=== PATIENT | female | born 1975 | race African-American/Black ===

== ENCOUNTER 2020-04-15 12:43 | Emergency (ER) | payer SELFPAY ==
[2020-04-15 12:49] VITALS: BP 165/103; PULSE 86; RESP 16; TEMP 36.1; O2SAT 100
--- NOTE | 2020-04-15 12:50 | W.ED.GENAD ---
Discharge Plan Disposition Patient Disposition: HOME Condition: Stable Discharge Details Clinical Impression: Right wrist sprain ED Provider: Kev Pisano Home Meds and New Rx's Prescriptions: Continued metoprolol succinate 50 mg Tablet Extended Release 24 Hr 50 mg PO DAILY AM RF: 0 spironolactone [Aldactone] 25 mg Tablet 25 mg PO DAILY AM RF: 0 aspirin 81 mg Tablet,Delayed Release (Dr/Ec) 81 mg PO DAILY AM RF: 0 Discharge Instructions Instructions: Wrist Sprain (ED) Additional Instructions: Continue ice 20 minutes at a time to reduce pain and swelling. Elevate above the level of heart to reduce pain and swelling. Tylenol and/or ibuprofen as needed for pain. Wear wrist splint as needed 5 to 7 days time. May remove for bathing and at night. See enclosed work accommodation. Return to the ER for any acute concerns. 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 She was not injured in any other way. She has otherwise been well. Ice placed, patient given acetaminophen and referred for x-ray. No evidence of bony injury. Consistent with right wrist sprain. Will place in a universal wrist splint for 5 to 7 days time, she may have a work modification, and is appropriate for discharge to home. HPI General Mode of arrival: ambulatory. Date/Time Provider Initiated Documentation: 04/15/20 12:43. Limitations to Documentation: no limitations. Information obtained by: patient. History of Present Illness 45 year old F presents to the emergency department with the chief complaint of Right wrist pain, described as moderate, Quality is described as dull and constant, and is localized to the right and upper extremity. Patient reports no radiation. Patient started experiencing this hour(s) and it has been constant. Rest improves symptom(s), Movement worsens symptoms . Patient did receive the following treatments prior to arrival, NSAID and cold therapy Related Data Home Medications Medication Instructions Recorded Confirmed aspirin 81 mg PO DAILY AM 04/15/20 04/15/20 metoprolol succinate 50 mg PO DAILY AM 04/15/20 04/15/20 spironolactone [Aldactone] 25 mg PO DAILY AM 04/15/20 04/15/20 Allergies Allergy/AdvReac Type Severity Reaction Status Date / Time No Known Allergies Allergy Unverified 04/15/20 12:53 Review of Systems Narrative: No other injury. No numbness or tingling. Did not fall or hurt herself. Otherwise well. 4 systems reviewed and negative [facility] Social History Smoking/Tobacco Use Status: Unknown Smoking risk assessment performed?: Yes Alcohol Intake: never Drug use: Never Do you feel safe at home: Yes Do you feel safe in your relationship?: Yes Exam Narrative Exam Narrative: GEN: awake, alert, oriented 3. Pleasant, well groomed, interactive. HEAD: Normocephalic, atraumatic ENT: External ear exam unremarkable EYES: PERRL, EOMI NECK: Full ROM, no MARLIN, no menigismus CHEST/RESP: Nontender EXT: Full ROM, limited somewhat by pain. 2+ radial pulse bilateral upper extremity, sensation intact throughout. Right distal radius is tender and swollen. Neuro: Grossly normal neurologic exam, conversant, interactive. Psych: Speech fluent, thoughts congruent, affect normal
[2020-04-15] MEDS: Acetaminophen 500 MG TAB 1000 MG PO (13:07)
--- NOTE | 2020-04-15 13:10 | DI.RAD_ITS ---
EXAM: XR WRIST RT COMPL NAVICULAR CLINICAL HISTORY: pain, injury. TECHNIQUE: 2D digital imaging was performed. COMPARISON: No exams were available for comparison FINDINGS: BONES: There is a small deformity the posterior aspect of the distal metaphysis of the right radius s een on the lateral view. A nondisplaced fracture cannot be excluded. Please correlate with the janis ent's site of pain. No other findings to suggest an acute fracture or dislocation are present. No b omkar destructive lesion is seen. JOINTS: The carpal bones are normally aligned. SOFT TISSUE: Normal. IMPRESSION: Cortical deformity seen at the posterior aspect of the distal right radius which may represent a nond isplaced fracture. Please correlate with patient's site of pain. DATA REPOSITORY: RADIATION DOSE DELIVERED:
--- NOTE | 2020-04-15 13:25 | DI.VRAD_ITS ---
PROCEDURE INFORMATION: Exam: XR Right Wrist Exam date and time: 04/15/2020 12:45 PM Age: 45 years old Clinical indication: Pain; Wrist; Right TECHNIQUE: Imaging protocol: XR Right wrist. Views: 3 or more views. COMPARISON: No relevant prior studies available. FINDINGS: Bones/joints: No acute fracture or dislocation. No significant joint space narrowing. No marginal erosions or osteophytes. No lytic or blastic osseous lesion. Soft tissues: No soft tissue gas or radiopaque foreign body. IMPRESSION: No acute fracture or dislocation. No evidence of chronic osseous findings. Dictated and Authenticated by: Mackenzie Harkins MD. Ordering:JENNIFER Angulo MD
--- OUTSIDE RECORDS SUMMARY | 2020-04-15 13:26 | XMS_ITS | Encounter Summary ---
:[address] [facility] Address [address] [place] [address] Care Team Providers Name Role Phone Russ Doss MD Primary Care Provider Encounter Details Date Type Department Care Team Description 01/07/2019 Telephone [facility], [facility] MD [address] [facility] [place] [address] [facility] [address] [facility] [address] [place], [place] [phone] [place], [place] [id number] Social History Tobacco Use Types Packs/Day Years Used Date Never Smoker 0 Smokeless Tobacco: Never Used Alcohol Use Drinks/Week oz/Week Comments No Intimate Partner Violence Answer Date Recorded Within the last year, have you been afraid of your partner o r No 11/03/2018 ex-partner? Within the last year, have you been humiliated or emotionall y No 11/03/2018 abused in other ways by your partner or ex-partner? Within the last year, have you been kicked, hit, slapped, or No 11/03/2018 otherwise physically hurt by your partner or ex-partner? Within the last year, have you been raped or forced to have any No 11/03/2018 kind of sexual activity by your partner or ex-partner? Sex Assigned at Date Recorded Not on file documented as of this encounter Plan of Treatment Not on filedocumented as of this encounter Visit Diagnoses Not on filedocumented in this encounter Additional Source Comments [facility] [place] releasing the current information available at the time of this request. [facility]
--- OUTSIDE RECORDS SUMMARY | 2020-04-15 13:26 | XMS_ITS | Encounter Summary ---
:1975 Author Organization [facility] Address [address] [place] [address] Care Team Providers Name Role Phone Russ Doss MD Primary Care Provider Encounter Details Date Type Department Care Team Description 01/11/2019 Telephone [facility], [facility] MD [address] [facility] [place] [address] [facility] [address] [facility] [place] [place], [place] [phone] [place], [place] [id number] Social History Tobacco Use Types Packs/Day Years [...] filedocumented in this encounter Additional Source Comments [facility] is releasing the current information available at the time of this request. [facility]
--- OUTSIDE RECORDS SUMMARY | 2020-04-15 13:26 | XMS_ITS | Encounter Summary ---
:1975 Author Organization [facility] Address [address] [place] [address] Care Team Providers Name Role Phone Russ Doss MD Primary Care Provider Reason for Visit Reason Comments Post-op Follow-up Encounter Details Date Type Department Care Team Description 01/19/2019 Office Visit [place] [facility]; Physicians, IncDarell Stewart II, MD Pelvic abscess in female [address] [facility] [facility] [address] [place] [id number] Social History Tobacco Use Types Packs/Day Years [...] on file documented as of this encounter Last Filed Vital Signs Vital Sign Reading Time Taken Comments Blood Pressure 110/80 01/19/2019 2:52 PM UTILITY LOCATOR Pulse - - Temperature - - Respiratory Rate - - Oxygen Saturation - - Inhaled Oxygen Concentration - - Weight 123.7 kg (272 lb 9.6 oz) 01/19/2019 2:52 PM UTILITY LOCATOR Height 165.1 cm (5' 5) 01/19/2019 2:52 PM UTILITY LOCATOR Body Mass Index 45.36 01/19/2019 2:52 PM UTILITY LOCATOR documented in this encounter Patient Instructions Patient Instructionsvon Juan Moralez II, MD - 01/19/2019 3:30 PM UTILITY LOCATOR Continue antibiotics and pelvic rest ITY LOCATOR documented in this encounter Progress Notes Juan Mead II, MD - 01/19/2019 3:30 PM CST Subjective: Postoperative Follow-up Remedios Schofield is a 43 y.o. who presents to the clinic 4 weeks status post RALTHBS and 2 weeks later presents to ER with pelvic abscess, drain placed and on oral antibiotics for abnormal uterine bleeding and fibroids. Eating a regular diet without difficulty. Bowel movements are normal. Painis controlled with current analgesics. Medications being used: ibuprofen (OTC). Patient's medications, allergies, past medical, surgical, social and family histories were reviewed and updated as appropriate. Review of Systems Pertinent items are noted in HPI. Objective: Blood pressure 110/80, height 5' 5 (1.651 m), weight 272 lb 9.6 oz (123.7 kg). General: alert,appears stated age,cooperative Abdomen: soft,bowel sounds active,non-tender Incision: Cuff is intact, abdominal incisions healing. Cuff is full with fullness above it PATHOLOGY: Assessment: 43 y.o. s/p RALTHBS doing well post-operatively. Operative findings again reviewed. Pathology report discussed. 1. Post-operative state 2. Pelvic abscess in female Plan: 1. Continue any current medications. 2. Wound care discussed. 3. Activity restrictions: pelvic rest 4. Follow up: 4 weeks . 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 [facility]
--- OUTSIDE RECORDS SUMMARY | 2020-04-15 13:26 | XMS_ITS | Encounter Summary ---
:1975 Author Organization [facility] Address [address] [place] [address] Care Team Providers Name Role Phone Russ Doss MD Primary Care Provider Reason for Visit Auth/Cert Status Reason Specialty Diagnoses / Procedures Referred By Sumaya ontact Referred To Contact Surgery Diagnoses Intramural leiomyoma of uterus Menorrhagia with regular cycle Intramural leiomyoma of uterus [D25.1] Menorrhagia with regular cycle [N92.0] [facility] Procedures NC LAPAROSCOPY W TOT HYSTERECT UTERUS 250 GRAM OR LESS HYSTERECTOMY ABDOMINAL ROBOTIC ASSISTED [address] [facility] [place] [address] Phone: Encounter Details Date Type Department Care Team Description 12/31/2018 Anesthesia Event [facility] Taj Sosa ODarell, [address] [place] [address] [place] [address] [facility] [phone] [facility] Anesthesia [phone] [facility] [place] [phone] Anesthesia Record Procedure Summary Procedure Name Responsible Anesthesia Start Anesthesia Stop Time Anesthesiologist Time ROBOTIC ASSISTED Taj Sosa MD 12/31/18 0655 9 0929 HYSTERECTOMY, BS (Bilateral Abdomen) Events Date Time Event Comment 12/31/2018 0636 0655 An Start 0658 An Start Data 0704 Pre Induction Eval The patient w as re-assessed just prior to induction/proced ure start. 0707 An Induction 0709 An Intubation 0719 Anesthesia Ready 0728 an dian now incx 0901 An Emergence 0901 Oral Airway Applied 0910 Extubation Adequate spontan eous ventilation, TOF=4/4 with sustained tetanu s, Patient Suctioned,Extubated with Positive Pr essure, 100% oxygen applied by Face Mask, Posit derik ET CO2. 0917 an stop data 0929 An Stop Name Total midazolam (VERSED) injection 1 mg/mL 2 mg fentaNYL (SUBLIMAZE) injection 200 mcg lidocaine 2% (cardiac) injection 100 mg 100 mg rocuronium (ZEMURON) 10 mg/mL injection 50 mg propofol (DIPRIVAN) injection 10 mg/mL 200 mg succinylcholine (ANECTINE) 20 mg/mL injection 160 mg ondansetron (PF) (ZOFRAN) injection 4 mg dexamethasone (DECADRON) injection 4 mg/mL 12 mg neostigmine (BLOXIVERZ) 1 mg/mL injection 5 mg glycopyrrolate (ROBINUL) injection 0.8 mg phenylephrine (KOBY-SYNEPHRINE) injection 500 mcg acetaminophen (OFIRMEV) 10 MG/ML IVPB 1,000 mg ceFAZolin (ANCEF) 3 g in sodium chloride 0.9% 100 mL I VPB 3 g ketorolac (TORADOL) injection 30 mg 30 mg lactated ringers infusion 1,500 mL Agents Name O2 Sevoflurane (E) N2O (E) Blood No blood administrations on file. Lines, Drains, and Airways Type Details Placement Removal Incision 12/31/18; 09; Abdomen; 12/31/18 09 by steri strips and bandaids Estefani Inman, RN x4 Peripheral IV 12/31/18; 0615; No; Yes; 12/31/18 0615 by Mylene 12/31/18 1330 by 20 G; Left; Antecubital; DIANDRA Davey, DIANDRA Chlorhexidine; (marci dsg, + blood return, site ok, + nv cks); Tolerated well; Yes ETT 12/31/18; 0709; Direct 12/31/18 0709 by 12/31/18 0914 by laryngoscopy, Stylet; MIKAELA Humphrey CRNA Oral Standard; No; 7.5 mm; Cuffed; Auscultation, Capnometry, Symmetrical chest wall movement; Twill tape; Harding; 2; 1; Planned extubation Urethral Catheter 12/31/18; 0718; No; Yes; 12/31/18 0718 by 12/08 07/25 0852 by Latex; 16 Fr.; Per order Estefani Inman, RN Ca dawood Inman RN documented in this encounter Social History Tobacco Use Types Packs/Day Years [...] on file documented as of this encounter OR Notes Anesthesia Postprocedure Evaluation - Taj Sosa MD - 01/05/2019 12:34 PM CDT Anesthesia Post Note Patient: Remedios Schofield Procedures(s) performed: ROBOTIC ASSISTED HYSTERECTOMY, BS Anesthesia type: General Last Vitals: Vitals Value Taken Time BP 132/61 12/31/2018 10:30 AM Temp 36.7 ??C (98 ??F) 12/31/2018 9:21 AM Pulse 77 12/31/2018 10:30 AM Resp 16 12/31/2018 10:30 AM SpO2 95 % 12/31/2018 10:30 AM Post assessment: tolerated well, no immediate complications Post vital signs: post-procedure vital signs reviewed and stable Temp: post-procedure temperature appropriate Post pain: adequate control Post Op Nausea/Vomiting: no PONV Motor Function: gross motor function is at baseline for patient Procedure Information: hypotension not controlled and hypothermia not controlled Complications: no anesthesia complication Postoperative Hydration: acceptable Anesthesia Preprocedure Evaluation - Taj Sosa MD - 12/27/2018 9:57 AM CDT Anesthesia Evaluation Patient identifiers: Name and Patient summary reviewed and Nursing notes reviewed No history of anesthetic complications, no history of difficult intubation, no malignant hyperthermia, no PONV and no motion sickness Airway Mallampati: I TM distance: >3 FB Neck ROM: full Dental (+) poor dentition Comment: Missing Multiple Teeth LOC alert and awake Cardiovascular (+) hypertension ( ) dysrhythmias (atrial fibrillation) (-) 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, 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 Exercise tolerance:>4 METS (denies CP/SOB) Rhythm: regular Rate: normal Pulmonary - negative ROS (-) shortness of breath, recent URI GI/Hepatic - negative ROS (-)motion sickness Neuro/Psych - negative ROS Abdominal (+) obesity Endo/Other (+) diabetes (type 2, well controlled, ) Female (+) Uterine Fibroids Renal - negative renal ROS Neoplastic Disorders - Neoplastic Disorders Neg Sys Review Hematology - negative hematology ROS (-) history of blood transfusion Spine - Spine Disorders Neg Sys Review Joint and Skeletal - Joint/Skeletal Neg Sys Review Skin and Connective Tissue - Skin/Connective Tissue Disorders Neg Sys Review Immune Disorders -Immune Disorders Neg Sys Review Physical ExamAnesthesia Plan ASA Score: 2 Plan: general 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 Induction: intravenous Informed Consent: Discussed with: patient Patient/account development representative educated and consented to anesthesia plan. Questions asked and answered. NPO Status: Confirmed 1.676 m (5' 6) 126.1 kg (278 lb) Body mass index is 44.87 kg/m??. No results found for: WBC, HGB, HEMATOCRIT, PLT Chemistry No results found for: NA, K, CL, CO2, BUN, CREATININE, CREATININE, GLU No results found for: CALCIUM, ALKPHOS, AST, ALT, BILITOT No results found for: PTT No results found for: INR, PROTIME No results found for: PREGTESTUR, PREGSERUM, HCG, HCGQUANT, PREGUR Vitals: 12/27/18 0931 BP: (!) 153/89 Pulse: 77 Resp: 18 SpO2: 100% Social History Socioeconomic History ??? Marital status: Spouse name: Not on file ??? Number of children: Not on file ??? Years of education: Not on file ??? Highest education level: Not on file Occupational History ??? Not on file Social Needs ??? Financial resource strain: Not on file ??? Food insecurity: Worry: Not on file Inability: Not on file ??? Transportation needs: Medical: Not on file Non-medical: Not on file Tobacco Use ??? Smoking status: Never Smoker ??? Smokeless tobacco: Never Used Substance and Sexual Activity ??? Alcohol use: No ??? Drug use: No ??? Sexual activity: Yes Partners: Male control/protection: None Lifestyle ??? Physical activity: Days per week: Not on file Minutes per session: Not on file ??? Stress: Not on file Relationships ??? Social connections: Talks on phone: Not on file Gets together: Not on file Attends faith service: Not on file Active member of club or organization: Not on file Attends meetings of clubs or organizations: Not on file Relationship status: Not on file ??? Intimate partner violence: Fear of current or ex partner: No Emotionally abused: No Physically abused: No Forced sexual activity: No Other Topics Concern ??? Not on file Social History Narrative ??? Not on file documented in this encounter Miscellaneous Notes Anesthesia Transfer of Care Note - Sheron Estrada CRNA - 12/31/2018 9:28 AM CDT Anesthesia Transfer of Care Note Patient: Remedios Schofield Procedure(s) performed: ROBOTIC ASSISTED HYSTERECTOMY, BS Last Vitals: Vitals: 12/31/18 0542 BP: (!) 177/89 Pulse: 93 Resp: 20 Temp: 36.4 ??C (97.6 ??F) SpO2: 99% Patient Location: PACU Post pain: adequate Post assessment: tolerated well, no immediate complications and no recall Post vital signs: post-procedure vital signs reviewed and stable Airway: mask Level of Consciousness: awake and responds to stimuli Complications: no anesthesia complication Transported: On O2 Continuous monitoring: BP, EKG, SpO2 and Oxygen Upon Arrival: Attached to O2 and Adequate spontaneous ventilation Handoff report complete. Handoff report given to: naty Handoff provided opportunity for questions to be asked and answered. documented in this encounter Plan of Treatment Not on filedocumented as of this encounter Visit Diagnoses Not on filedocumented in this encounter Administered Medications Inactive Administered Medications - up to 3 most recent administrations Medication Order MAR Action Action Date Dose Rate Site acetaminophen (OFIRMEV) 1,000 Given 12/31/2018 7:45 AM CDT 1,00 0 mg mg/100 mL (10 mg/mL) IVPB Administer over 15 Minutes, PRN, Starting Thu12/31/18 at 0745, Anesthesia Intra-op ceFAZolin (ANCEF) 3 g in sodium chloride 0.9% New Bag 7:20 AM CDT 3 g 100 mL IVPB 3 g, Intravenous, Administer over 30 Minutes, 60 Min Pre-Op, Starting Thu12/31/18 at 0700, For 1 dose, Infuse within 1 hour before incision Dose adjusted per policy 122, Pre-op, Indications: gynecological surgery dexamethasone (DECADRON) injection Given 12/31/2018 9:20 AM CDT 8 mg Intravenous, PRN, Starting Thu12/31/18 at 0720, Anesthesia Intra-op Given 12/31/2018 7:20 AM CDT 4 mg fentaNYL (SUBLIMAZE) injection Given 12/31/2018 7:54 AM CDT 50 mcg Intravenous, PRN, Starting Thu12/31/18 at 0705, Anesthesia Intra-op Given 12/31/2018 7:30 AM CDT 50 mcg Given 12/31/2018 7:05 AM CDT 50 mcg glycopyrrolate (ROBINUL) injection Given 12/31/2018 9:00 AM CDT 0.6 mg Intravenous, PRN, Starting Thu12/31/18 at 0655, Anesthesia Intra-op Given 12/31/2018 6:55 AM CDT 0.2 mg ketorolac (TORADOL) injection Given 12/31/2018 8:52 AM CDT 30 mg PRN, Starting Thu12/31/18 at 0852, Anesthesia Intra-op lactated Ringers infusion New Bag 12/31/2018 8:20 AM CDT Intravenous, Continuous PRN, Starting Thu12/31/18 at 0655, Anesthesia Intra-op New Bag 12/31/2018 6:55 AM CDT lidocaine (cardiac) 2 % (XYLOCAINE) Given 12/31/2018 7:07 AM CD T 100 mg injection Intravenous, PRN, Starting Thu12/31/18 at 0707, Anesthesia Intra-op midazolam (VERSED) injection Given 12/31/2018 6:55 AM CDT 2 mg Intravenous, PRN, Starting Thu12/31/18 at 0655, Anesthesia Intra-op neostigmine methylsulfate (BLOXIVERZ) Given 12/31/2018 9:00 AM CDT 5 mg injection Intravenous, PRN, Starting Thu12/31/18 at 0900, Anesthesia Intra-op ondansetron hcl (PF) (ZOFRAN) injection Given 12/31/2018 6:55 AM CDT 4 mg Intravenous, PRN, Starting Thu12/31/18 at 0655, Anesthesia Intra-op phenylephrine (KOBY-SYNEPHRINE) injection Given 12/31/2018 9:08 AM CDT 200 mcg Intravenous, PRN, Starting Thu12/31/18 at 0817, Anesthesia Intra-op Given 12/31/2018 8:38 AM CDT 100 mcg Given 12/31/2018 8:36 AM CDT 100 mcg propofol (DIPRIVAN) 10 mg/mL injection Given 12/31/2018 7:07 AM CDT 200 mg Intravenous, PRN, Starting Thu12/31/18 at 0707, Anesthesia Intra-op rocuronium (ZEMURON) injection Given 12/31/2018 7:23 AM CDT 40 mg PRN, Starting Thu12/31/18 at 0707, Anesthesia Intra-op Given 12/31/2018 7:07 AM CDT 10 mg succinylcholine (ANECTINE) injection Given 12/31/2018 7:08 AM CDT 160 mg Intravenous, PRN, Starting Thu12/31/18 at 0708, Anesthesia Intra-op documented in this encounter Additional Source Comments [facility] is releasing the current information available at the time of this request. [facility]
--- OUTSIDE RECORDS SUMMARY | 2020-04-15 13:26 | XMS_ITS | Encounter Summary ---
:1975 Author Organization [facility] Address [address] [place] [address] Care Team Providers Name Role Phone Russ Doss MD Primary Care Provider Encounter Details Date Type Department Care Team Description 12/03/2018 Telephone [place] [facility], [facility] [facility] [place] [facility] [address] [place], [place] [phone] [place], [place] [phone] Social History Tobacco Use Types Packs/Day Years Used Date Never Smoker Smokeless Tobacco: Never Used Alcohol Use Drinks/Week [...] filedocumented in this encounter Additional Source Comments [facility] is releasing the current information available at the time of this request. [facility]
--- OUTSIDE RECORDS SUMMARY | 2020-04-15 13:26 | XMS_ITS | Encounter Summary ---
:1975 Author Organization [facility] Address [address] [place] [address] Care Team Providers Name Role Phone Russ Doss MD Primary Care Provider Reason for Visit Auth/Cert Status Reason Specialty Diagnoses / Procedures Referred By Sumaya ontact Referred To Contact Surgery Diagnoses Intramural leiomyoma of uterus Menorrhagia with regular cycle Intramural leiomyoma of uterus [D25.1] Menorrhagia with regular cycle [N92.0] [facility] Procedures FL LAPAROSCOPY W TOT HYSTERECT UTERUS 250 GRAM OR LESS HYSTERECTOMY ABDOMINAL ROBOTIC ASSISTED [address] [facility] [id number] Phone: Encounter Details Date Type Department Care Team Description 12/31/2018 Hospital Encounter [facility] gina Harperisabelle, Leiomyoma; [address] [facility] Sonia Stewart II, MD Severe dysmenorrhea [place], [place] [address] [phone] [facility] [phone] [place] [address] Social History Tobacco Use Types Packs/Day Years [...] Sign Reading Time Taken Comments Blood Pressure 136/66 12/31/2018 1:00 PM CDT Pulse 68 12/31/2018 1:00 PM CDT Temperature 37 ??C (98.6 ??F) 12/31/2018 10:42 AM CDT Respiratory Rate 16 12/31/2018 1:00 PM CDT Oxygen Saturation 96% 12/31/2018 1:00 PM CDT Inhaled Oxygen Concentration - - Weight 126.1 kg (278 lb) 12/31/2018 5:36 AM CDT Height 167.6 cm (5' 5.98) 12/31/2018 5:36 AM CDT Body Mass Index 44.89 12/31/2018 5:36 AM CDT documented in this encounter Discharge Instructions Mylene Perez RN - 12/31/2018Follow all of Dr. Gibbs's instructions. Strict pelvic rest. No heavyy lifting. Showers ok after 48 hours. No soaking in a tub. Allow the steri strips to fall off naturally. Call Dr. Gibbs for any questions or concerns. General Anesthesia : It takes up to 24 hours for your body to process anesthesia medications. Do not drink alcoholic beverages, including beer for 24 hours. Alcohol enhances the effects of anesthesia medications. Do not drive a motor vehicle, operate machinery or power tools for 24 hours. Do not sign any legal documents. Do not stay home alone. You may experience lightheadedness, dizziness, and sleepiness following surgery. A responsible adult should be with you for this 24 hour period. Rest at home with moderate activity as tolerated. It may NOT be necessary to go to bed; however, it is important to rest for this 24 hour period. Progress slowly to your regular diet unless your doctor has instructed you otherwise. Be aware that certain anesthesia and pain medications may produce nausea and vomiting in certain individuals. If nausea becomes a problem, call your doctor. You may have a sore throat. You may use ice chips, cold liquids, sore throat sprays or lozenges to relieve discomfort. documented in this encounter Medications at Time of Discharge Medication Sig Dispensed Refills Start Date End Date aspirin (LO-DOSE ASPIRIN) 81 Take 81 mg by 0 MG EC tablet mouth metoprolol (TOPROL-XL) 50 MG Take 50 mg by 0 04/09 24 hr tablet mouth daily hydroCHLOROthiazide Take 12.5 mg by 0 11/04/2018 11/04/2019 (HYDRODIURIL) 12.5 MG tablet mouth daily metFORMIN (GLUCOPHAGE-XR) 500 Take 500 mg by 0 03/28/2019 MG 24 hr tablet mouth daily documented as of this encounter H&P Notes Sonia Gibbs II, MD - 12/31/2018 6:56 AM CDTH&P reviewed. The patient was examined and there are no changes to the H&P. voSonia Sanders II, MD - 12/27/2018 8:02 AM CDT PRE OP H+P 43 y.o. female for annual routine Pap and checkup. No LMP recorded.. She has no unusual complaints.Left pelvic pain. LMP10/04 mammo 03/27 ? Past Medical History: Diagnosis Date ??? A-fib ? Fibrocystic breast ? HTN (hypertension) ? Hypertension ? Uterine benign neoplasm ? leiomyoma ?? Past Surgical History: Procedure Laterality Date ??? MYOMECTOMY ? MYOMECTOMY ? MYOMECTOMY ? Social History ?? Socioeconomic History ??? Marital status: ? Spouse name: Not on file ??? Number of children: Not on file ??? Years of education: Not on file ??? Highest education level: Not on file Occupational History ??? Not on file Social Needs ??? Financial resource strain: Not on file ??? Food insecurity: ? Worry: Not on file ? Inability: Not on file ??? Transportation needs: ? Medical: Not on file ? Non-medical: Not on file Tobacco Use ??? Smoking status: Never Smoker ??? Smokeless tobacco: Never Used Substance and Sexual Activity ??? Alcohol use: No ??? Drug use: No ??? Sexual activity: Yes ? Partners: Male ? control/protection: None Lifestyle ??? Physical activity: ? Days per week: Not on file ? Minutes per session: Not on file ??? Stress: Not on file Relationships ??? Social connections: ? Talks on phone: Not on file ? Gets together: Not on file ? Attends alevism service: Not on file ? Active member of club or organization: Not on file ? Attends meetings of clubs or organizations: Not on file ? Relationship status: Not on file ??? Intimate partner violence: ? Fear of current or ex partner: No ? Emotionally abused: No ? Physically abused: No ? Forced sexual activity: No Other Topics Concern ??? Not on file Social History Narrative ??? Not on file ?? Family History Problem Relation Age of Onset ??? Diabetes Mother ? Hypertension Mother ? Cancer Mother ? Leukemia Mother ? Coronary art dis Mother ? Diabetes Father ? Hypertension Father ? Coronary art dis Father ? Hypertension Sister ? Diabetes Sister ? Cancer Sister ? OB History Para Term AB Living 1 1 1 1 SAB TAB Ectopic Multiple Live Births 1 ?? # Outcome Date GA Lbr Arden/2nd Weight Sex Delivery Anes PTL Lv 1 Term ? Current??Medications Current Outpatient Medications Medication Sig Dispense Refill ??? losartan (COZAAR) 100 MG tablet Take 100 mg by mouth daily ? magnesium oxide (MAG-OX) 400 mg tablet Take 400 mg by mouth daily ? medroxyPROGESTERone (PROVERA) 10 MG tablet Bid 10 tablet 11 ??? potassium chloride (KLOR-CON) 10 MEQ CR tablet Take 10 mEq by mouth daily ? sotalol (BETAPACE) 160 MG tablet Take 160 mg by mouth 2 (two) times daily ? No current facility-administered medications for this visit. ?? Allergies: Patient has no known allergies. ? ROS: Constitutional: no weight loss, weight gain, fever, fatigue Eyes: No vision changes, glasses/contacts ENT/Mouth: No ulcers, sinus problems, ears ringing, headache Cardiovascular: No inability to lie flat, chest pain, exercise intolerance, swelling, heart palpitations Respiratory: No wheezing, coughing blood, shortness of breath, or cough Gastrointestinal: No diarrhea, bloody stool, nausea/vomiting, constipation, gas, hemorrhoids Genitourinary: No blood in urine, painful urination, urgency of urination, frequency of urination, incomplete emptying, incontinence, abnormal bleeding, painful periods, heavy periods, vaginal discharge, vaginal odor, painful intercourse, sexual problems, bleeding after intercourse. Musculoskeletal: No muscle weakness Skin/Breast: No painful breasts, nipple discharge, masses, rash, ulcers Neurological: No passing out, seizures, numbness, headache Endocrine: No diabetes, hypothyroid, hyperthyroid, hot flashes, hair loss, abnormal hair growth, ance Psychiatric: No depression, crying Hematologic: No bruises, bleeding, swollen lymph nodes, anemia. ? OBJECTIVE: The patient appears well, alert, oriented x 3, in no distress. ?? VITALS: No data found. BP: 120/80 There is no height or weight on file to calculate BMI. ? NECK: NECK SUPPLE- NO MASSES PALPATED SKIN: mobility and turgor normal BREAST EXAM: normal appearance, no masses or tenderness ABDOMEN: no hernias, masses, or hepatosplenomegaly GENITALIA: normal external genitalia, no erythema, no discharge URETHRA: normal without discharge or scarring VAGINA: normal vagina CERVIX: normal appearance UTERUS: enlarged, 10 week size weeks size ADNEXA: positive for: tenderness on the left ?? Age appropriate discussion done regarding annual Pap Smear Screening, annual Mammogram, daily vitamin as well as Calcium and Vitamin D supplementation. ?? ASSESSMENT: Active Problem List with Overview Notes ?? Diagnosis Date Noted ??? Diffuse cystic mastopathy of both breasts 11/03/2018 ??? Severe dysmenorrhea 11/03/2018 ??? Left ovarian cyst 11/03/2018 ??? Well woman exam with routine gynecological exam 12/10/2017 ??? Leiomyoma 12/10/2017 ?? PELVIC SONO: PELVIC ULTRASOUND CLINICAL HISTORY: Benign neoplasm of connective and other soft tissue, unspecifiedfibroid; TECHNIQUE: Real-time ultrasound of the pelvis was performed transabdominally and transvaginally. COMPARISON: 04/26/2014 FINDINGS: The uterus measures 10 x 5.2 x 6.2 cm.?The endometrial stripe measures 2.5 mm.?There are no uterine masses.?A right anterior uterine fibroid measures 1.1 x 1.0 x 0.9 cm.?A 2nd left uterine body fibroid measures 1.3 x 1.0 x 1.7 cm.?A 3rd seen at the left uterine body and more cephalad measures 1.7 x 1.3 x 1.6 cm. The right ovary measures 3 x 1.7 x 2.3 cm. Arterial and venous flow is seen.?There is a prominentfollicle measuring 1.5 x 0.9 x 1.4 cm. The left ovary measures 4.7 x 3.9 x 4.0 cm. Arterial and venous flow is seen.?There is a complex area within the left ovary measuring 3 x 3.6 x 3.3 cm with a lattice like pattern.. There is no free fluid in the pelvis. ?? PLAN: Provera 10 bid Pt wants HYST. Will schedule RALTHBS for myoma and heavy menses documented in this encounter Miscellaneous Notes Result QuickNote - Sonia Gibbs II, MD - 12/31/2018 1:54 PM CDT Aware...vA Nursing Note - Mylene Davey RN - 12/31/2018 1:53 PM [id number] discharge instructions provided with voiced understanding. Call md for any questions. Satisfaction expressed with care pau po, voiding freely, pain controlled. Pt states ready to go home.kbh ursing Note - Mylene Davey RN - 12/31/2018 1:37 PM [id number] toradol 30mg IV given as ordered. Dr. Gibbs at bedside. Unable to scan toradol. Vial notscanning correctly. Medication verified with Dr. Gbibs at bedside. Vial: Toradol 3) mg / 1 mlsingle dose vial. Pharmacist called to make aware of problem. kbh rief Op/Discharge Note - Sonia Gibbs II, MD - 12/31/2018 7:28 AM CDT \ROBOTIC ASSISTED HYSTERECTOMY, BS Brief Operative/Discharge Note Destinee Bustamante [id number] 12/31/2018 Pre-op Diagnosis: Intramural leiomyoma of uterus [D25.1] Menorrhagia with regular cycle [N92.0] Post-op Diagnosis: same Procedure(s): ROBOTIC ASSISTED HYSTERECTOMY, BS Anesthesia: General Surgeon(s) and Role: * Sonia Gibbs II, MD - Primary * Zaida Davidson MD - Staff: Performing Staff: Glue Jointer Operator: Estefani Inman RN Relief Glue Jointer Operator: Trey Manuel RN Scrub Person: Stefanie Bullard Video Tech: Video Tech Scrub in Training: Jose G Mills CST Estimated Blood Loss: less than 50 mL Drain: none Total IV Fluids: 1500mL URINE-150cc Specimens: ID Type Source Tests Collected by Time A : Tissue Uterus, Cervix, and Bilateral Fallopian Tubes [facility] Sonia Gibbs II, MD 12/31/2018 0824 Implants: * No implants in log * Complications: none Findings: adhesions, myomas Disposition: awakened from anesthesia, extubated and taken to the recovery room in a stable condition, having suffered no apparent untoward event. Condition: doing well without problems Technique: RALTHBS, lysis adhesions, Surgicel powder at end Patient Instructions: Current Discharge Medication List CONTINUE these medications which have NOT CHANGED Details hydroCHLOROthiazide (HYDRODIURIL) 12.5 MG tablet Take 12.5 mg by mouth daily metFORMIN (GLUCOPHAGE-XR) 500 MG 24 hr tablet Take 500 mg by mouth daily metoprolol (TOPROL-XL) 50 MG 24 hr tablet Take 50 mg by mouth daily aspirin (LO-DOSE ASPIRIN) 81 MG EC tablet Take 81 mg by mouth STOP taking these medications medroxyPROGESTERone (PROVERA) 10 MG tablet Activity: activity as tolerated and pelvic rest Diet: regular diet Follow-up with Dr Gibbs in 4 weeks. Discussed plan with patient and answered questions: Yes Signed: Sonia Gibbs II 12/31/2018 9:09 AM ursing Note - Mylene Davey RN - 12/31/2018 5:53 AM [id number] pt still changing into gown & doing pre surgical wipes kbh p Note - Sonia Gibbs II, MD - 12/31/2018 12:00 AM CDT OPERATIVE REPORT PATIENT: DESTINEE BUSTAMANTE ADMIT DATE: 12/31/2018 CSN: [id number] DISCHARGE DATE: 12/31/2018 : 1975 AGE: 43 Page 3 of 3 DATE OF OPERATION/PROCEDURE: 12/31/2018 SURGEON: SONIA GIBBS II, MD PLUM PACKER: Dr. Zaida Lagunas. PREOPERATIVE DIAGNOSIS: Menorrhagia and uterine myoma. POSTOPERATIVE DIAGNOSIS: Menorrhagia and uterine myoma. INDICATION FOR PROCEDURE: This is a 43-year-old black female with a 10 cm uterus with fibroids, having abnormal uterine bleeding consisting of menorrhagia. Options were discussed with the patient, and she wants a more definitive procedure with a hysterectomy rather than IUD or ablation which had been discussed with the patient also. Need for established physician group fitness assistant department head: 1. This is a patient with an enlarged uterus, abnormally shaped. 2. Residents not available. 3. Established physician aids in resection of tissue, creating pedicles, placing sutures, and retracting organs out of the way. Due to the enlarged and abnormally shaped uterus, this is not a case that could have been handled by a auto brake technician or certified home health aide. PROCEDURE PERFORMED: Robot-assisted total laparoscopic hysterectomy, bilateral salpingectomy. DESCRIPTION OF FINDINGS: ANESTHESIA: General. COMPLICATIONS: ESTIMATED BLOOD LOSS: SPECIMENS REMOVED: DRAINS IMPLANTS: PROCEDURE IN DETAIL: The patient was taken to the operating room, given general anesthetic, sterilely prepped and draped in dorsal lithotomy position. Bladder emptied with a Boggs catheter. Raudel colpotomizer system placedin to manipulate the uterus. A supraumbilical skin incision was made. Veress needle was placed in. Confirmation of placement was made by hanging drop technique. CO2 insufflated, opening pressure of6 mmHg, followed by fast fill to 15 mmHg. Right and left hypogastric ports were placed in. Assistance port placed in the left upper quadrant. Evaluation revealed the patient with previous myomectomy, omental adhesions, and small bowel adhesions to the posterior surface of the uterus into the patient's left adnexal area. These were taken down bluntly and sharply in order to expose the pelvis. On both sides, the ovaries and tubes were densely adherent to one another, probably from previous surgery. Liver edge was smooth. Gallbladder seen. Appendix seen. Hysterectomy performed in the following fashion after adhesiolysis was performed. Ureters were seen peristalsing bilaterally. Left fallopian tube was elevated out of its fossa. The mesosalpinx and mesovarium were triply burned and cut tothe cornua of the uterus. Similar dissection took place on the patient's right side. Round ligament now triply burned and cut. Uteroovarian ligament triply burned and cut. Bladder flap created bluntly and sharply. It was was pushed over the Raudel ring. The broad ligament was skeletonized to the uterine vessels. Uterine vessels were triply burned and cut. Cardinal ligament was triply burned and c ut. This blanches the uterus. The vagina was now entered sharply over the Raudel ring. Incision carried right and left laterally and then the uterus was anteverted and we came across the cul-de-sac. The uterus was pulled through the vagina. The V-Loc suture was placed in through the vagina and the vagina was then sutured in the following fashion. Modified Matteo stitch was placed in the right cuff angle. The suture was run across the vagina to the left cuff angle where a modified Matteo stitch was placed in, then the V-Loc suture was run back across itself for hemostasis and security. Vigorous irrigation revealed a blood loss of approximately 50 cc and then following evaluation of all pedicles and the ureter and suctioning of all fluids, the procedure was terminated. Surgicel powder wasplaced onto the pelvic floor for hemostasis and for adhesion barrier, and the procedure was terminated at this time. Excessive gas allowed to issue through the ports and then they were closed with 3-0Vicryl in a subcuticular fashion. Vaginal instruments were removed. No excessive bleeding noted. Boggs catheter was removed. The patient was awakened, sent to the recovery room in stable condition. She will be discharged to same-day surgery unit. Prescription for Vicodin given. Follow up in the office in 3 to 4 weeks. IV fluids during the case 1500 cc. Urine 150 cc.Blood loss 50 cc. Dictated By: SONIA GIBBS II, MD WFV/MODL /[id number] documented in this encounter Plan of Treatment Not on filedocumented as of this encounter Procedures Procedure Name Priority Date/Time Associated Comments Diagnosis [facility] GLUCOSE Routine 12/31/2018 9:31 Result s for this AM CDT procedure are i n the results section. [facility]GICAL Routine 12/31/2018 8:24 Results fo r this PATHOLOGY AM CDT procedure are i n the results section. HYSTERECTOMY 12/31/2018 6:42 Intramural ABDOMINAL ROBOTIC AM CDT leiomyoma of u terus ASSISTED Menorrhagia with regular cycle [facility]CT GLUCOSE Routine 12/31/2018 6:22 Result s for this AM CDT procedure are i n the results section. documented in this encounter Results POCT Glucose (12/31/2018 9:31 AM CDT) POCT Glucose 147 (H) 78 - 110 [facility] mg/dL [facility] POCT Performed By: SAMANTHA Tinajero [facility] Specimen Blood - Blood (substance) Performing Organization Address City/State/Zipcode Phone Number [facility] [place] [phone] [facility] Surgical Pathology ([place]) (12/31/2018 8:24 AM CDT) Specimen Tissue - Uterus, Cervix, and Bilateral F allopian Tubes Narrative Performed At This result has an attachment that is no t available. Patient - DESTINEE BUSTAMANTE ?- 1975 Sex- F [facility] Med Rec # - [id number] ?Sonia Alaniz M.D. The following is an electronic copy of report # [id number] from: [facility] Isaiah Mcconnell. [address] ? [place] [address] ? DIAGNOSIS: 01/04/2019 EJM:pjl ? UTERUS, HYSTERECTOMY WITH BILATERAL SALPINGECTOMY: UTERINE CERVIX: ??-ENDOCERVICAL POLYP. ??-FOCAL CHRONIC CERVICITIS. ??-NABOTHIAN CYST UTERINE CORPUS: ?-BASAL/INACTIVE ENDOMETRIUM . ?- FOCA L ADENOMYOSIS ??-MULTIPLE LEIOMYOMATA, INCLUDING A SUBMUCOUS LEIOMY SHADY. FALLOPIAN TUBES, BILATERAL: ??-MILD VILLOUS FIBROSIS, MILD HYDROSALPINX. ??-PARATUBAL CYSTS. ? SPECIMEN AND SOURCE: Uterus, cervix, bilateral tubes ? CLINICAL INFORMATION: Myoma menorrhagia ? GROSS EXAMINATION: 01/03/2019 WO/WPL/blg ? Received in formalin, labeled with the patient's name, medical record number, and uterus, cervix, bilateral fallopian tube s, is a 160 gram hysterectomy specimen with attached bilateral fallopi an tubes. ??The uterus measures superior-inferior 9.8 cm, cornu-cornu 6.4 cm, anterior-posterior ??4.6 cm. ?? The cervix measures 3 .6 x 3.2 cm with a slit-like os, 0.4 cm. The left fallopian tube is 4.3 cm in length and 0.3 to 0.9 cm in diameter with a 0.9 x 0.7 cm paratub al cyst at the distal fallopian tube, filled with clear fluid. ??The right fallopian tube measures 5.4 cm in length and 0.7 to 1.6 cm in d iameter. ??Fimbria are not identified on the fallopian tubes. ??The sero sa of the uterus is white-hoover with scattered adherent white-hoover fibrou s strands of tissue, most prominent on the posterior surface. ??A palpable area of nodularity is present on the superior right lateral a spect of the posterior surface. ??The cervix is pink light purple with scattered punctate hemorrhagic foci on the posterior cervix. ?? The serosa of the left fallopian tube is hoover-brown fibrous tissue along the length of the fallopian tube. ??The serosa of the right fallopi an tube is smooth, pink-purple with scattered hemorrhagic foci along the length of the fallopian tube. ??A white-hoover nodule, 0.7 x 0.7 cm, i s present at the distal end of the fallopian tube. ??Bivalved to revea l a 2.4 cm endocervical canal lined by a white-hoover herringbone m ucosa with a possible, 0.4 x 0.3 cm endocervical polyp within th a nterior cervix. The endometrial cavity measures 4.5 x 5.2 cm lined by a white-hoover endometrium, 0.1 cm in thickness. ??A well-delineated , white-hoover submucosal nodule 1.5 x 1.3 cm is present in the ante rior and posterior endometrial cavity. ??Within the superior a spect of the anterior and posterior endometrial cavity are two wel l-delineated, white-hoover nodules, 0.5 cm and 1.2 cm in greatest dime nsion. Additional sectioning reveals three white-hoover intramu ral nodules, 0.6 to 1.2 cm in greatest dimension within the interior a spect of the anterior endometrial cavity. ??The remaining myometri um is homogeneous white-hoover with a maximal thickness of 1.8 cm. ??Cut s urfaces of the intramucosal and intramural nodules demonstrate a who rled white-hoover cut surface. ??No necrosis or hemorrhage is identifie d. ??The left fallopian tube is sectioned to show a 0.4 cm lumen pr oximally and a 0.7 cm lumen distally filled with hoover tissue admixed with blood. ??The right fallopian tube is sectioned to show a 0.5 cm pr oximally filled with brown hoover tissue and a 1.2 cm cystic space dista lly filled with brown hemorrhagic tissue. ??Net Making Supervisor sections s ubmitted as follows: ? 1A - Anterior cervix including possible polyp. 1B - Posterior cervix. 1C - Anterior endomyometrium and intramucosal nodule, full thickness. 1D - Anterior endomyometrium with intramural nodule, f ull thickness. 1E - Anterior endomyometrium with intramural nodule. 1F - Posterior endomyometrium with intramucosal nodule , full thickness. 1G - Intramural nodules, superior endometrial cavity. 1H - Left fallopian tube. 1I - Right fallopian tube. ? MICROSCOPIC DESCRIPTION: Unless gross only is specified, diagnosis for each spe cimen is based on a microscopic examination of senior outside sales representative sections of tissue. ? Pathologist: David Vines III, MD, [place] ([facility]) 01/04/2019 4:24 PM ? [facility], [facility] * [address] [place] [address] ? ?* [place] [address] Technical services performed at: [facility] * [address] * [place] [address] Gross examination performed at: [facility] * [address] * [place] [address] ? End of Report Performing Organization Address [facility] Phone Number [facility] [address] [place] [address] [phone] POCT Glucose (12/31/2018 6:22 AM CDT) [facility] POCT Glucose 127 (H) 78 - 110 mg/dL [facility] POCT Performed By: DIANDRA Chakraborty [facility] Specimen Blood - Blood (substance) Performing Organization Address [facility] Phone Number [facility] AT [address] [place] [address] [facility] documented in this encounter Visit Diagnoses Diagnosis Leiomyoma Other benign neoplasm of connective and other soft tissue of unspecified site Severe dysmenorrhea documented in this encounter Administered Medications Inactive Administered Medications - up to 3 most recent administrations Medication Order MAR Action Action Date Dose Rate Site HYDROmorphone (DILAUDID) Given 12/31/2018 9:50 AM CDT 0.5 mg injection 0.5 mg 0.5 mg, Intravenous, Every 3 Min PRN, PRN Pain, to keep Pain Score 1 - 3, Starting Thu12/31/18 at 0928, For 8 doses, PACU, Up to 4 mg total, Given 12/31/2018 9:42 AM CDT 0.5 mg Given 12/31/2018 9:35 AM CDT 0.5 mg ketorolac (TORADOL) injection 30 mg Given 12/31/2018 1:23 PM CDT 30 mg 30 mg, Intravenous, Once PRN, Pain Score 1 - 3, give to pt on discharge home, Starting Thu12/31/18 at 0908, For 1 dose, Post-op sodium chloride 0.9% infusion 1,000 mL 1,000 mL, Intravenous, at 30 mL/hr, Cont inuous, Starting Thu12/31/18 at 0545, For 30 days, Pre-op tamsulosin (FLOMAX) 24 hr capsule 0.4 mg Given 12/31/2018 11:24 AM CDT 0.4 mg 0.4 mg, Oral, Daily, First dose on Thu12/31/18 at 0915, For 1 dose, Post-op, Do NOT Crush, documented in this encounter Additional Source Comments [facility] [place] is releasing the current information available at the time of this request. [facility]
--- OUTSIDE RECORDS SUMMARY | 2020-04-15 13:26 | XMS_ITS | Encounter Summary ---
:1975 Author Organization [facility] Address [address] [place] [address] Care Team Providers Name Role Phone Russ Doss MD Primary Care Provider Encounter Details Date Type Department Care Team Description 01/19/2019 Travel Social History Tobacco Use Types Packs/Day Years [...] filedocumented in this encounter Additional Source Comments [facility] [place] [place] releasing the current information available at the time of this request. [facility]
--- OUTSIDE RECORDS SUMMARY | 2020-04-15 13:26 | XMS_ITS | Encounter Summary ---
:1975 Author Organization [facility] Address [address] [place] [address] Care Team Providers Name Role Phone Russ Doss MD Primary Care Provider Encounter Details Date Type Department Care Team Description 12/27/2018 Surgical Consult Wirt gina Moralez, Leiomyoma; [employer] Juan Stewart II, MD Severe dysmenorrhea; [address] [facility] [address] [facility] Left ovarian cyst [address] [place] [address] [phone] Social History Tobacco Use Types Packs/Day Years [...] Sign Reading Time Taken Comments Blood Pressure 120/80 12/28/2018 7:58 AM CDT Pulse - - Temperature - - Respiratory Rate - - Oxygen Saturation - - Inhaled Oxygen Concentration - - Weight - - Height - - Body Mass Index - - documented in this encounter Patient Instructions Patient InstructionsJuan Mead II, MD - 12/27/2018 8:30 AM CDT Hospital pre op documented in this encounter Progress Notes Juan Mead II, MD - 12/27/2018 8:30 AM CDT Preoperative Visit Patient is a 43 y.o. with Myoma and dysmenorrhea scheduled for RALTHBS. HPI: 43 y.o. with a history of uterine fibroids and dysmenorrhea OB History Para Term AB Living 1 1 1 1 SAB TAB Ectopic Multiple Live Births 1 # Outcome Date GA Lbr Arden/2nd Weight Sex Delivery Anes PTL Lv 1 Term leiomyoma Past Medical History: Diagnosis Date ??? A-fib ??? Diabetes mellitus ??? Fibrocystic breast ??? HTN (hypertension) ??? Hypertension ??? Uterine benign neoplasm leiomyoma Past Surgical History: Procedure Laterality Date ??? MYOMECTOMY ??? MYOMECTOMY ??? MYOMECTOMY Prior to Admission medications Medication Sig Start Date End Date Taking? Authorizing Provider aspirin (LO-DOSE ASPIRIN) 81 MG EC tablet Take 81 mg by mouth Historical Provider, hydroCHLOROthiazide (HYDRODIURIL) 12.5 MG tablet Take 12.5 mg by mouth daily 11/04/18 11/04/19 Historical Provider, medroxyPROGESTERone (PROVERA) 10 MG tablet Bid 11/03/18 Juan Mead II, MD metFORMIN (GLUCOPHAGE-XR) 500 MG 24 hr tablet Take 500 mg by mouth daily 03/28/18 03/28/19 HistoricalProviMD keyur metoprolol (TOPROL-XL) 50 MG 24 hr tablet Take 50 mg by mouth daily 04/19/18 Historical Provider, No Known Allergies Social History Socioeconomic History ??? Marital status: [...] file Gets together: Not on file Attends anabaptism service: Not on file Active member of club or organization: Not on file Attends meetings of clubs or organizations: Not on file Relationship status: Not on file ??? Intimate partner violence: Fear of current or ex partner: No Emotionally abused: No Physically abused: No Forced sexual activity: No Other Topics Concern ??? Not on file Social History Narrative ??? Not on file Family History Problem Relation Age of Onset ??? Diabetes Mother ??? Hypertension Mother ??? Cancer Mother ??? Leukemia Mother ??? Coronary art dis Mother ??? Diabetes Father ??? Hypertension Father ??? Coronary art dis Father ??? Hypertension Sister ??? Diabetes Sister ??? Cancer Sister Review of Systems: As stated in HPI. Objective: Vitals: 12/28/18 0758 BP: 120/80 There is no height or weight on file to calculate BMI. PHYSICAL EXAM General: NAD, A/Ox3 Neck: supple Respiratory: CTAB, no w/r/r Cardiovascular: RRR no m/r/g Abdomen: NTTP, no masses, ND Extremities: no edema External genitalia: Normal female anatomy, no masses/lesions. Uterus : no masses. No adnexal fullness/tenderness. IMAGING: TVUS: Assessment: RALTHBS for definitive surgical management. Plan: 1. Counseling: Alternatives to this planned procedure were explained to the patient including expectant, medical and other types of surgical management. This procedure and its risks, reasons, benefits and complications (including injury to bowel, bladder, major blood vessel, ureter, bleeding, possibility of transfusion, infection, scarring, dyspareunia, erosion, further surgery, worsening incontinence, failure of the procedure or fistula formation) were reviewed in detail. 2. Surgical consents signed. 3. Transfusion of blood and blood products discussed. 4. Preop testing ordered. Surgery case requested. 5. Instructions reviewed, including NPO after midnight. Patient sent for pre op appointment prior to leaving appointment today documented in this encounter Plan of Treatment Not on filedocumented as of this encounter Visit Diagnoses Diagnosis Leiomyoma Other benign neoplasm of connective and other soft tissue of unspecified site Severe dysmenorrhea Left ovarian cyst Other and unspecified ovarian cyst documented in this encounter Additional Source Comments [facility] [place] releasing the current information available at the time of this request. [facility] [employer]
--- OUTSIDE RECORDS SUMMARY | 2020-04-15 13:26 | XMS_ITS | Encounter Summary ---
:1975 Author Organization [facility] [place] [address] [place] [address] Care Team Providers Name Role Phone Russ Doss MD Primary Care Provider Reason for Referral Cardiac Testing (Routine) Status Reason Specialty Diagnoses / Referred By Referred To Procedures Contact Contact Closed Specialty Cardiology Diagnoses Preop testing Terry Pre Admit Services Required Procedures EKG 12 lead [address] [place] [address] Reason for Visit Cardiac Testing (Routine) Status Reason Specialty Diagnoses / Referred By Referred To Procedures Contact Contact Closed Specialty Cardiology Diagnoses Preop testing Terry Pre Admit Services Required Procedures EKG 12 lead [address] [place] [address] Encounter Details Date Type Department Care Team Description 12/27/2018 PAT Visit [facility] Juan Mead II, MD [address] [address] Preop examination (Primary Dx); [facility] [place] [address] Anesthesia Record Procedure Summary Procedure Name Responsible Anesthesia Start Anesthesia Stop Time Anesthesiologist Time ROBOTIC ASSISTED Will Rashaad Sosa MD 12/31/18 0655 9 0929 HYSTERECTOMY, [...] by Face Mask, Posit derik ET CO2. 09 an stop data 09 An Stop No medications on file. Agents No agents on file. Blood No blood administrations on file. Lines, Drains, and Airways Type Details Placement Removal Incision 12/31/18; 09; Abdomen; 12/31/18 09 by steri strips and bandaids Estefani Inman RN x4 Peripheral IV 12/31/18; 0615; No; Yes; 12/31/18 0615 by Mylene 12/31/18 1330 by 20 G; Left; Antecubital; DIANDRA Davey RN Chlorhexidine; (marci dsg, + blood return, site [...] by Latex; 16 Fr.; Per order Estefani Imnan RN Ca dawood Inman RN documented in [...] Sign Reading Time Taken Comments Blood Pressure 153/89 12/27/2018 9:31 AM CDT Pulse 77 12/27/2018 9:31 AM CDT Temperature - - Respiratory Rate 18 12/27/2018 9:31 AM CDT Oxygen Saturation 100% 12/27/2018 9:31 AM CDT Inhaled Oxygen Concentration - - Weight 126.1 kg (278 lb) 12/27/2018 9:31 AM CDT Height 167.6 cm (5' 6) 12/27/2018 9:31 AM CDT Body Mass Index 44.87 12/27/2018 9:31 AM CDT documented in this encounter Miscellaneous Notes Nursing Note - Gianna Finch RN - 12/27/2018 9:00 AM CDTSpoke with patient , advised her to stop asa now. She verbalized understanding ursing Note - Gianna Finch RN - 12/27/2018 9:00 AM CDTSpoke with Pamela at Dr Mead office. Pateint needs to stop asa now. Phoned patient and left message on voice mail AT Nursing Note - Gianna Finch RN - 12/27/2018 9:00 AM CDT [facility] Pre-Operative Home Care Instructions The Night Before Surgery 1. Take a complete bath (shower or tub) and shampoo your hair. Use Hibiclens as instructed. 2. Do not drink any alcoholic beverages for 24 hours before or after your operation. Alcohol may increase the depth of your anesthesia or the effect of the medications which you are given. 3. Do not eat or drink anything after midnight. Nothing in the morning - no water, no coffee, juice or liquid in your stomach. Do not chew gum, suck on mints or chew tobacco. 4. If having orthopedic/vascular/neurologicaal surgery, remove nail dutch from fingernails and toenails. 5. Other: The Day of Your Surgery A responsible adult must be available to drive you home. The drugs and/or anesthesia which you receive will make it unsafe for you to drive a car, walk back to your home or go home alone by public transportation for at least 24 hours. A parent or legal guardian must accompany a minor. 1. If having facial surgery or sinus surgery, do not apply any make-up: no eye make-up, face make-up or lipstick. 2. Contact lenses, dentures and hearing aids must be removed before you go into the operating room. Bring your contact lens case to keep your lenses protected while you are in surgery. A denture cup will be provided. 3. All hairpins, hair clasps or ramirez must be removed. 4. Please do not wear any jewelry including earrings, rings, watches, medals, etc. 5. Wear comfortable, loose fitting clothes. If your surgery involves your legs, wear shorts or loosely fitted pants. If your surgery involves your face or chest, wear a shirt that buttons up the front. 6. Leave all valuables at home. 7. Report toRegistration on the 3rd Floor [facility] by __0515 8. If registered over the phone, stop at the Admit Department, 3rd floor of the [facility] [address]. 9. Please do not bring children under 12 with you as there will be no one available to supervise them. 10. If you are , or could be , tell your physician immediately for your safety and the safety of your baby. In the event that your physical condition changes (for example, if you develop a cold, persistent cough, fever, flu or an important change in the condition for which you are having the operation) please notify the [facility] personnel at [phone]. Our hours are 5:30 a.m. - 5:30 p.m., Thursday through Thursday. Instructions Given By: ___Gianna Finch RN____Date: esult Adam - Juan Mead II, MD - 12/27/2018 9:00 AM CDTAware...vA documented in this encounter Plan of Treatment Scheduled Orders Name Type Priority Associated Diagnoses Order S chedule POCT urine Point of Care Routine Once for 1 Testing Occurrences sta rting 12/27/2018 unti l 12/27/2018 documented as of this encounter Procedures Procedure Name Priority Date/Time Associated Comments Diagnosis EKG 12 LEAD Routine 12/27/2018 9:45 Preop testing Results fo r this AM CDT procedure are i n the results section. [facility] [place] WITH Routine 12/27/2018 9:21 Results fo r this DIFFERENTIAL AM CDT procedure are i n the results section. [facility] , URINE STAT 12/27/2018 9:21 Re sults for this AM CDT procedure are i n the results section. [facility] URINALYSIS Routine 12/27/2018 9:21 Preop examination Res ults for this AM CDT procedure are i n the results section. [facility] CBC WITH Routine 12/27/2018 9:21 Results fo r this DIFFERENTIAL AM CDT procedure are i n the results section. [facility] COMPREHENSIVE Routine 12/27/2018 9:21 Resul ts for this METABOLIC PANEL AM CDT procedure ar e in the results section. documented in this encounter Results EKG 12 lead (12/27/2018 9:45 AM CDT) VENTRICULAR RATE 72 BPM [facility] OTHER RESULTS ATRIAL RATE 72 BPM [facility] OTHER RESULTS P-R INTERVAL 154 ms [facility] OTHER RESULTS QRS DURATION 78 ms [facility] OTHER RESULTS Q-T INTERVAL 406 ms [facility] OTHER RESULTS QTC CALCULATION(BEZET) 444 ms [facility] OTHER RESULTS P AXIS 44 degrees [facility] OTHER RESULTS R AXIS -4 degrees [facility] OTHER RESULTS T AXIS 35 degrees [facility] OTHER RESULTS INTERPRETATION (MUSE) Normal sinus [facility] OTHER RESULTS rhythm Specimen Performing Organization Address City/[facility]/Zipcode Phone Number [facility] OTHER RESULTS , Urine (12/27/2018 9:21 AM CDT) Pathologist Sig nature Urine Test Negative Negative [facility] Urine 1.015 [facility] Specific [place] [facility] Specimen Urine - Urine (substance) Performing Organization Address City/[facility]/Zipcode Phone Number [facility] [place] [phone] [facility] CBC with Differential (12/27/2018 9:21 AM CDT) WBC 8.1 4.0 - 10.0 10? 3 [facility] /uL [facility] RBC 4.62 3.80 - 5.10 10? 6 [facility] /uL [facility] Hemoglobin 12.4 11.5 - 15.0 [facility] gm/dL [facility] Hematocrit 38.1 35.0 - 46.0 % [facility] MCV 82.6 81.0 - 99.0 fL [facility] MCH 26.9 26.0 - 33.0 pg [facility] MCHC 32.6 31.0 - 35.0 [facility] g/dL [facility] RDW 14.6 11.5 - 15.0 % [facility] Platelet Count 258 140 - 410 10? 3 [facility] /uL [facility] MPV 8.8 7.2 - 10.4 fL [facility] Neutrophils Absolute 4.67 1.50 - 6.30 10? 3 [facility] - Instrument /uL [facility] Lymphocytes Absolute 2.39 1.00 - 3.00 10? 3 [facility] - Instrument /uL [facility] Monocytes Absolute - 0.78 0.20 - 0.80 10? 3 [facility] Instrument /uL [facility] Eosinophils Absolute 0.25 0.00 - 0.40 10? 3 [facility] - Instrument /uL [facility] Basophils Absolute - 0.04 0.00 - 0.10 10? 3 [facility] Instrument /uL [facility] Neutrophils Percent - 57.5 32 - 64 % [facility] T Instrument [facility] Lymphocytes Percent - 29.4 25 - 48 % [facility] T Instrument [facility] Monocytes Percent - 9.6 (H) 4 - 6 % [facility] Instrument [facility] Eosinophils Percent - 3.1 (H) 2 - 3 % [facility] T Instrument [facility] Basophils Percent - 0.5 0 - 1 % [facility] Instrument [facility] Specimen Blood - Blood (substance) Performing Organization Address City/State/Zipcode Phone Number [facility] [address] [phone] [facility] Urinalysis (12/27/2018 9:21 AM CDT) Color Yellow Light Yellow, [facility] Colorless, AT [facility] Straw, Yellow, Dark Yellow Clarity/Appearanc Clear Clear [facility] AT [facility] Specific [place] 1.015 1.005 - 1.035 [facility] pH 6.5 5.0 - 8.0 [facility] Glucose, UA Normal Normal [facility] Protein Negative Negative [facility] Ketones Negative Negative [facility] Bilirubin, Urine Negative Negative [facility] Nitrites Negative Negative [facility] Blood 0.03 mg/dL (A) Negative [facility] Leukocyte Negative Negative [facility] Esterase, UA AT [facility] Urobilinogen, UA Normal Normal, 2.0 [facility] EU/dL AT [facility] Specimen Urine - Voided urine specimen (specimen) Performing Organization Address City/State/Zipcode Phone Number [facility] [address] [phone] [facility] Comprehensive Metabolic Panel (12/27/2018 9:21 AM CDT) Sodium 141 136 - 145 [facility] mmol/L [facility] Potassium 4.0 3.5 - 5.1 [facility] mmol/L [facility] Chloride 104 98 - 107 mmol/L [facility] Carbon Dioxide 29 20 - 31 mmol/L [facility] Glucose 122 (H) 74 - 106 mg/dL [facility] BUN 7.0 (L) 9.0 - 23.0 [facility] mg/dL [facility] Creatinine 0.85 0.55 - 1.02 [facility] mg/dL [facility] BUN/Creatinine Ratio 8 (L) 12 - 20 [facility] Calcium 8.7 8.3 - 10.6 [facility] mg/dL [facility] Total Protein 7.3 5.7 - 8.2 g/dL [facility] Albumin 4.5 3.2 - 4.8 g/dL [facility] Albumin/Globulin 1.6 0.8 - 1.7 [facility] AST 16 <34 U/L [facility] ALT 15 10 - 49 U/L [facility] Alkaline Phosphatase 66 46 - 116 U/L [facility] Bilirubin, Total 0.3 0.2 - 1.0 mg/dL [facility] EGFR, 96 >89 mL/min [facility] EGFR, Non 83 (L) >89 mL/min [facility] Anion Gap 8 8 - 16 [facility] Specimen Blood - Blood (substance) Performing Organization Address City/State/Zipcode Phone Number [facility] [place] [phone] [facility] documented in this encounter Visit Diagnoses Diagnosis Preop examination - Primary Preoperative examination, unspecified Preop testing Preoperative examination, unspecified documented in this encounter Additional Source Comments [facility] [place] the current information available at the time of this request. [facility]
--- OUTSIDE RECORDS SUMMARY | 2020-04-15 13:26 | XMS_ITS | Encounter Summary ---
:1975 Author Organization [facility] Address [address] [place] [address] Care Team Providers Name Role Phone Russ Doss MD Primary Care Provider Reason for Visit Auth/Cert Status Reason Specialty Diagnoses / Procedures Referred By Sumaya ontact Referred To Contact Surgery Diagnoses Intramural leiomyoma of uterus Menorrhagia with regular cycle Intramural leiomyoma of uterus [D25.1] Menorrhagia with regular cycle [N92.0] Terry Operating Room Procedures [place] LAPAROSCOPY W TOT HYSTERECT UTERUS 250 GRAM OR LESS HYSTERECTOMY ABDOMINAL ROBOTIC ASSISTED [address] [facility] [address] Phone: Encounter Details Date Type Department Care Team Description 12/31/2018 Surgery [facility] Sonia Gibbs ROBOTIC ASSISTED [address] [place] [address] Pat SOLIS MD HYSTERECTOMY, [place], [place] [address] [facility] [address] [facility] [phone] [place] [address] Social History Tobacco Use Types [...] Sign Reading Time Taken Comments Blood Pressure 132/61 12/31/2018 10:30 AM CDT Pulse 77 12/31/2018 10:30 AM CDT Temperature 36.7 ??C (98 ??F) 12/31/2018 9:21 AM CDT Respiratory Rate 16 12/31/2018 10:30 AM CDT Oxygen Saturation 95% 12/31/2018 10:30 AM CDT Inhaled Oxygen Concentration - - [...] there are no changes to the H&P. von Sonia Moralez II, MD - 12/27/2018 8:02 AM CDT [...] Gets together: Not on file ? Attends methodist service: Not on file ? Active member [...] Mylene Davey RN - 12/31/2018 1:53 PM [id number] discharge instructions provided with voiced understanding. Call md for any questions. Satisfaction expressed with care pau po, voiding freely, pain controlled. Pt states ready to go home.kbh ursing Note - Mylene Davey RN - 12/31/2018 1:37 PM [id number] toradol 30mg IV given as ordered. Dr. Gibbs at bedside. Unable to scan toradol. Vial notscanning correctly. Medication verified with Dr. Gibbs at bedside. Vial: Toradol 3) mg / 1 mlsingle dose vial. Pharmacist called to make aware of problem. kbh rief Op/Discharge Note - Sonia Gibbs II, MD - 12/31/2018 7:28 AM CDT \ROBOTIC ASSISTED HYSTERECTOMY, BS Brief Operative/Discharge Note Destinee Bustamante [id number] 12/31/2018 Pre-op Diagnosis: Intramural leiomyoma of uterus [D25.1] Menorrhagia with regular cycle [N92.0] Post-op Diagnosis: same Procedure(s): ROBOTIC ASSISTED HYSTERECTOMY, BS Anesthesia: General Surgeon(s) and Role: * Sonia Gibbs II, MD - Primary * Zaida Davidson MD - Staff: Performing Staff: Gauge And Weigh Machine Operator: Estefani Inman RN Relief Gauge And Weigh Machine Operator: Trey Manuel RN Scrub Person: Stefanie Bullard Video Tech: Video Tech Scrub in Training: Jose G Mills CST Estimated Blood Loss: less than 50 mL Drain: none Total IV Fluids: 1500mL URINE-150cc Specimens: ID Type Source Tests Collected by Time A : Tissue Uterus, Cervix, and Bilateral Fallopian Tubes [facility] Sonia Gibbs II, MD 12/31/2018 [...] Mylene Davey RN - 12/31/2018 5:53 AM [id number] pt still changing into gown & doing pre surgical wipes kbh p Note - Sonia Gibbs II, MD - 12/31/2018 12:00 AM CDT OPERATIVE REPORT PATIENT: DESTINEE BUSTAMANTE ADMIT DATE: 12/31/2018 CSN: [id number] DISCHARGE DATE: 12/31/2018 : 1975 AGE: 43 Page 3 of 3 DATE OF OPERATION/PROCEDURE: 12/31/2018 SURGEON: SONIA GIBBS II, MD TANK TENDER: Dr. Zaida Lagunas. PREOPERATIVE DIAGNOSIS: Menorrhagia and [...] the patient also. Need for established physician cardiovascular physician assistant: 1. This is a patient with an enlarged uterus, abnormally shaped. 2. Residents not available. 3. Established physician aids in resection of tissue, creating pedicles, placing sutures, and retracting organs out of the way. Due to the enlarged and abnormally shaped uterus, this is not a case that could have been handled by a sterile processing technician or certified control systems technician. PROCEDURE PERFORMED: Robot-assisted total laparoscopic hysterectomy, bilateral [...] Dictated By: SONIA GIBBS II, MD WFV/MODL /[id number] documented in this encounter Plan of Treatment Not on filedocumented as of this encounter Procedures Procedure Name Priority Date/Time Associated Comments Diagnosis [facility] POCT GLUCOSE Routine 12/31/2018 9:31 Result s for this AM CDT procedure are i n the results section. [facility] SURGICAL Routine 12/31/2018 8:24 Results fo r this PATHOLOGY AM CDT procedure are i n the results section. HYSTERECTOMY 12/31/2018 6:42 Intramural ABDOMINAL ROBOTIC AM CDT leiomyoma of u terus ASSISTED Menorrhagia with regular cycle [facility] POCT GLUCOSE Routine 12/31/2018 6:22 Result s for this AM CDT procedure are i n the results section. documented in this encounter Results POCT Glucose (12/31/2018 9:31 AM CDT) POCT Glucose 147 (H) 78 - 110 [facility] mg/dL AT [facility] POCT Performed By: SAMANTHA Tinajero AT [facility] Specimen Blood - Blood (substance) Performing Organization Address City/State/Zipcode Phone Number [facility] [place] [phone] [facility] Surgical Pathology ([place]) (12/31/2018 8:24 AM CDT) Specimen Tissue - Uterus, Cervix, and Bilateral F allopian Tubes Narrative Performed At This result has an attachment that is no t available. Patient - DESTINEE BUSTAMANTE ?- 1975 Sex- F [facility] Rec # - [id number] ?Sonia Alaniz M.D. The following is an electronic copy of report # [id number] from: [facility] [address] ? [place] [address] ? DIAGNOSIS: 01/04/2019 EJM:pjl ? UTERUS, HYSTERECTOMY [...] dista lly filled with brown hemorrhagic tissue. ??Stator Plate Washer sections s ubmitted as follows: ? 1A [...] is based on a microscopic examination of commissary representative sections of tissue. ? Pathologist: David Vines III, MD, [place] ([facility]) 01/04/2019 4:24 PM ? [facility], [facility] * [address] [facility] ? ?* [place] [address] Technical services performed at: [facility] * [address] ??[facility]. [address] * [place] [address] Gross examination performed at: [facility] * [address] * [place] [address] ? End of Report Performing Organization Address [facility] Phone Number [facility] [address] [place] [address] POCT Glucose (12/31/2018 6:22 AM CDT) [facility] POCT Glucose 127 (H) 78 - 110 mg/dL [facility] POCT Performed By: [facility] Specimen Blood - Blood (substance) Performing Organization Address [facility] Phone Number [facility] [address] [place] [phone] [facility] documented in this encounter Visit Diagnoses Diagnosis Intramural leiomyoma of uterus Menorrhagia with regular cycle Excessive or frequent menstruation documented in this encounter Administered Medications Inactive Administered Medications - up to 3 most recent administrations Medication Order MAR Action Action Date Dose Rate Site bupivacaine (MARCAINE) 0.25 % Given 12/31/2018 6:22 AM CDT 30 m Ls (2.5 mg/mL) injection PRN, Starting Thu12/31/18 at 0622, Intra-op HYDROmorphone (DILAUDID) injection 0.5 m g Given 12/31/2018 9:50 AM CDT 0.5 mg 0.5 mg, Intravenous, Every 3 [...] documented in this encounter Additional Source Comments [facility] is releasing the current information available at the time of this request. [facility]
--- OUTSIDE RECORDS SUMMARY | 2020-04-15 13:26 | XMS_ITS | Encounter Summary ---
:1975 Author Organization [facility] Address [address] [place] [address] Care Team Providers Name Role Phone Russ Doss MD Primary Care Provider Encounter Details Date Type Department Care Team Description 12/27/2018 Travel Social History Tobacco Use Types Packs/Day [...] filedocumented in this encounter Additional Source Comments [facility] is releasing the current information available at the time of this request. [facility]
--- OUTSIDE RECORDS SUMMARY | 2020-04-15 13:26 | XMS_ITS | Clinical Summary ---
:1975 Author Organization [facility] Address [address] [place] [address] Care Team Providers Name Role Phone Russ Doss MD Primary Care Provider Allergies No Known Allergies Medications Medication Sig Dispensed Refills Start Date End Date Status aspirin (LO-DOSE Take 81 mg by 0 Active ASPIRIN) 81 MG EC mouth tablet metoprolol (TOPROL-XL) Take 50 mg by 0 04/19/2018 Active 50 MG 24 hr tablet mouth daily Active Problems Problem Noted Date Post-operative state 01/19/2019 Pelvic abscess in female 01/19/2019 Diffuse cystic mastopathy of both breasts 11/03/2018 Well woman exam with routine gynecological exam 2017 Resolved Problems Problem Noted Date Resolved Date Severe dysmenorrhea 11/03/2018 01/19/2019 Left ovarian cyst 11/03/2018 01/19/2019 Cystic mastopathy, unspecified laterality 12/10/2017 11/03/2018 Leiomyoma 12/10/2017 01/19/2019 Family History Medical History Relation Name Comments Coronary art dis Father Diabetes Father Hypertension Father Cancer Mother Coronary art dis Mother Diabetes Mother Hypertension Mother Leukemia Mother Cancer Sister Diabetes Sister Hypertension Sister Relation Name Status Comments Father (Age 75) Mother (Age 81) throat cancer Sister Social History Tobacco Use Types Packs/Day Years [...] Assigned at Date Recorded Not on file Last Filed Vital Signs Vital Sign Reading Time Taken Comments Blood Pressure 110/80 01/19/2019 2:52 PM PHOTOSTAT OPERATOR Pulse 68 12/31/2018 1:00 PM CDT Temperature 37 ??C (98.6 ??F) 12/31/2018 10:42 AM CDT Respiratory Rate 16 12/31/2018 1:00 PM CDT Oxygen Saturation 96% 12/31/2018 1:00 PM CDT Inhaled Oxygen Concentration - - Weight 123.7 kg (272 lb 9.6 oz) 01/19/2019 2:52 PM PHOTOSTAT OPERATOR Height 165.1 cm (5' 5) 01/19/2019 2:52 PM PHOTOSTAT OPERATOR Body Mass Index 45.36 01/19/2019 2:52 PM PHOTOSTAT OPERATOR Plan of Treatment Health Maintenance Due Date Last Done Comments Kdcoypz-Zcbujaggae-Lugcftwb 1990 (HFyg-Hjvv-Sx) (1 - Tdap) Cervical Cancer Screening 1994 Cologuard Screening 2018 Colon Cancer Screening 5 2018 Year Sigmoidoscopy Colon Cancer Screening 2018 Annual FOBT Annual Wellness 11/04/2019 11/03/2018, 12/10/2017 Influenza Vaccine 11/08/2019 12/20/2018, 12/20/2018, 04/01/2018, Additional history exists Colorectal Cancer Screening 2023 Pneumococcal Vaccine: 65+ 2038 Years (1 of 1 - PPSV23) HPV Vaccine Aged Out No longer eligib le based on patient 's age to complete this topic Meningococcal Vaccine Aged Out No longer eligible based on patient 's age to complete this topic Pneumococcal Vaccine: Aged Out No longer eligible Pediatric (0 to 5 Years) and bas ed on patient's age At Risk Patients (6 to 64 to com plete this topic Years) Schofield,Rmeedios C Personal/Family Self 1975 [address]) [place] [phone] Schofield,Remedios C Personal/Family Self 1975 [address] [place] [address] Advance Directives Documents on File Type Date Recorded Patient Manager Paid Explanati on Power of Yard Manager ADV DIR ACKnowledgement 02/22/2016 2:51 PM ADV DIR DOCument Latest Code Status on File Code Status Date Activated Date Inactivated Comments Full Code 12/31/2018 9:09 AM 12/31/2018 3:59 PM Full Code 12/31/2018 5:33 AM 12/31/2018 9:09 AM Additional Source Comments [facility] is releasing the current information available at the time of this request. [facility]
--- OUTSIDE RECORDS SUMMARY | 2020-04-15 13:26 | XMS_ITS | Encounter Summary ---
:1975 Author Organization [facility] Address [address] [place] [address] Care Team Providers Name Role Phone Russ Doss MD Primary Care Provider Encounter Details Date Type Department Care Team Description 01/05/2019 Telephone [facility], Taj Mead II, Inc. MD [facility] [facility] [address] [facility] [address] [place] [phone] [place], [place] [phone] Social History Tobacco Use Types Packs/Day Years [...] filedocumented in this encounter Additional Source Comments [facility] is releasing the current information available at the time of this request. [facility]
--- OUTSIDE RECORDS SUMMARY | 2020-04-15 13:26 | XMS_ITS | Encounter Summary ---
:1975 Author Organization [facility] Address [address] [place] [address] Care Team Providers Name Role Phone Russ Doss MD Primary Care Provider Encounter Details Date Type Department Care Team Description 01/05/2019 Orders Only [place] Juan Mead cy stitis without [facility] Pat SOLIS MD hematuria [address] [facility] [address] [facility] [address] [place] [phone] Social History Tobacco Use Types Packs/Day Years [...] on file documented as of this encounter Progress Notes Juan Mead II, MD - 01/05/2019 11:39 AM CDTuti symptoms-cipro documented in this encounter Plan of Treatment Not on filedocumented as of this encounter Visit Diagnoses Diagnosis Acute cystitis without hematuria Acute cystitis documented in this encounter Additional Source Comments [facility] is releasing the current information available at the time of this request. [facility]
--- OUTSIDE RECORDS SUMMARY | 2020-04-15 13:26 | XMS_ITS | Encounter Summary ---
:1975 Author Organization [facility] Address [address] [place] [address] Care Team Providers Name Role Phone Russ Doss MD Primary Care Provider Encounter Details Date Type Department Care Team Description 12/31/2018 Telephone [facility], Taj Mead II, Inc. MD [address] [facility] S[place] [facility] S[address]cha[address] [place], [place] [phone] [place], [place] [phone] Social History Tobacco Use Types Packs/Day Years [...] filedocumented in this encounter Additional Source Comments [facility] is releasing the current information available at the time of this request. [facility]
--- OUTSIDE RECORDS SUMMARY | 2020-04-15 13:27 | XMS_ITS | Encounter Summary ---
:[address] [facility] Address [address] [place] [address] Care Team Providers Name Role Phone Russ Doss MD Primary Care Provider Encounter Details Date Type Department Care Team Description 11/15/2018 Telephone [facility], Taj Mead II, Inc. MD [facility] [facility] [address] [facility] S[address] [place], [place] [phone] [place], [place] [phone] Social History Tobacco Use Types Packs/Day Years [...] filedocumented in this encounter Additional Source Comments [facility] is releasing the current information available at the time of this request. [facility]
--- OUTSIDE RECORDS SUMMARY | 2020-04-15 13:27 | XMS_ITS | Encounter Summary ---
:1975 Author Organization [facility] Address [address] [place] [address] Care Team Providers Name Role Phone Unavailable Primary Care Provider Unavailable Reason for Referral Diagnostic X-Ray (Routine) Status Reason Specialty Diagnoses / Referred By Referred To Procedures Contact Contact Closed Specialty Radiology Diagnoses Encounter for annual health examination [facility] B[facility] Required Procedures Mammogram Screening Bilateral [address] [place] [address] Reason for Visit Diagnostic X-Ray (Routine) Status Reason Specialty Diagnoses / Referred By Referred To Procedures Contact Contact Closed Specialty Radiology Diagnoses Encounter for annual health examination Terry B320 Obgyn Services Required Procedures Mammogram Screening Bilateral [address] [place] [address] Encounter Details Date Type Department Care Team Description 04/06/2018 Hospital Encounter [facility] gina Moralez, Encounter for annual [address] Juan Stewart II, [place] [address] [address] [address] [place] [address] Social History Tobacco Use Types Packs/Day Years Used Date Never Smoker Smokeless Tobacco: Never Used Alcohol Use Drinks/Week oz/Week Comments No Sex Assigned at Date Recorded Not on file documented as of this encounter Medications at Time of Discharge Medication Sig Dispensed Refills Start Date End Date metFORMIN (GLUCOPHAGE-XR) Take 500 mg by mouth 0 03/28/2018 03/28/2019 500 MG 24 hr tablet daily losartan (COZAAR) 100 MG Take 100 mg by mouth 0 12/27/2018 tablet daily magnesium oxide (MAG-OX) Take 400 mg by mouth 0 12/27/2018 400 mg tablet daily potassium chloride Take 10 mEq by mouth 0 12/27/2018 (KLOR-CON) 10 MEQ CR daily tablet sotalol (BETAPACE) 160 MG Take 160 mg by mouth 0 12/27/2018 tablet 2 (two) times daily documented as of this encounter Progress Notes Juan Mead II, MD - 04/06/2018 2:32 PM CSTI've reviewed results for Remedios Schofield. documented in this encounter Plan of Treatment Not on filedocumented as of this encounter Procedures Procedure Name Priority Date/Time Associated Diagnosis Comme nts [facility] MAMMOGRAM Routine 04/06/2018 7:56 AM Encounter for an nual Results for this SCREENING BILATERAL PIPELINE INSPECTOR health examination pr ocedure are in the results section. documented in this encounter Results [facility] MAMMOGRAM SCREENING BILATERAL (04/06/2018 7:56 AM PIPELINE INSPECTOR) Specimen Impressions Performed At NO MAMMOGRAPHIC EVIDENCE FOR BREAST MALIGNANCY WITH AP [facility] UNCHANGED SINCE PRIOR EXAMINATION. UNLESS OTHERWISE CLINICALLY INDICATED ROUTINE SCREENIN G MAMMOGRAPHY IS RECOMMENDED IN ONE YEAR. PATIENT INFORMATION HAS BE EN ENTERED INTO A REMINDER SYSTEM WITH A TARGET DATE FOR THE NEXT MAMM OGRAM FOR WHICH THE PATIENT WILL BE NOTIFIED. ACR BI-RADS/FDA CODES: ?? 2-Benign RECOMMENDATIONS: ??1000 - Screening Mamm in 1 Yr. DENSITY: b Electronically Signed By: Vaughn Tomas MD 04/06/2018 10:11 AM PIPELINE INSPECTOR Narrative Performed At SCREENING DIGITAL MAMMOGRAM WITH CAD: ?? G0202, [id number] [facility] P[facility] REASON FOR EXAMINATION: ??Screening. RISK FACTORS: No family history for breast cancer. Carlitos culated lifetime risk of 9.1-9.2% (average 12.5%) by the Tyrer -Cuzick risk assessment models (v8.0 and v8.0b respectively, the la tter incorporating estimated inherent risk conferred by the calculated volumetric parenchymal pattern/breast de nsity). Z12.31 PARENCHYMAL PATTERN: There are scattered parenchymal d ensities that may lower the sensitivity of mammography (ACR parenchy mal pattern b with volumetric breast density calculate d at 7.1%). Digital mammographic examination was performed followe d by computer aided detection analysis (CAD). Comparison is made wit h the patient's prior examinations the most recent of wh ich is dated 07/06/2015. Findings appear stable when compared with prior examin ation. No dominant masses, suspicious microcalcifications, spicu lated densities or deleterious interval changes are seen to suggest malignancy. Procedure Note Chris, Rad Results In - 04/06/2018 10:13 A M PIPELINE INSPECTOR SCREENING DIGITAL MAMMOGRAM WITH CAD: G0202, [id number] REASON FOR EXAMINATION: Screening. RISK FACTORS: No family history for sharla st cancer. Calculated lifetime risk of 9.1-9.2% (average 12.5%) by the Tyrer-Cuzick risk assessment models (v8.0 and v8.0b respectively, the latter incorporating estimated inherent risk conferred by the calculate d volumetric parenchymal pattern/breast density). Z12.31 PARENCHYMAL PATTERN: There are scattered parenchymal densities that may lower the sensitivity of mammography (ACR parenchymal pattern b with volumetric breast density calculated at 7.1%). Digital mammographic examination was per formed followed by computer aided detection analysis (CAD). Comparison is made with the patient's prior examinations the most recent of which is dated 07/06/2015. Findings appear stable when compared wit h prior examination. No dominant masses, suspicious microcalcifications, spiculated densities or deleterious interval changes are seen to suggest malignancy. IMPRESSION: NO MAMMOGRAPHIC EVIDENCE FOR BREAST ANGELIA GNANCY WITH APPEARANCE UNCHANGED SINCE PRIOR EXAMINATION. UNLESS OTHERWISE CLINICALLY INDICATED RO UTINE SCREENING MAMMOGRAPHY IS RECOMMENDED IN ONE YEAR. PATIENT INFORMATION HAS BEEN ENTERED INTO A REMINDER SYSTEM WITH A TARGET DATE FOR THE NEXT MAMMOGRAM FOR WHICH THE PATIENT WILL BE NOTIFIED. ACR BI-RADS/FDA CODES: 2-Benign RECOMMENDATIONS: 1000 - Screening Mamm in 1 Yr. DENSITY: b Electronically Signed By: Vaughn Tomas MD 04/06/2018 10:11 AM PIPELINE INSPECTOR Performing Organization Address City/State/Zipcode Phone Number [facility] documented in this encounter Visit Diagnoses Diagnosis Encounter for annual health examination Routine general medical examination at a health care facility documented in this encounter Additional Source Comments [facility] is releasing the current information available at the time of this request. [facility]
--- OUTSIDE RECORDS SUMMARY | 2020-04-15 13:27 | XMS_ITS | Encounter Summary ---
:1975 Author Organization [facility] Address [address] [place] [address] Care Team Providers Name Role Phone Unavailable Primary Care Provider Unavailable Encounter Details Date Type Department Care Team Description 10/22/2018 Telephone [facility], Taj Mead II, Lilian. 34[address] [facility] [address] [place] [address] [address] [place], [place] [phone] [place], [place] [phone] Social History Tobacco Use Types Packs/Day Years Used Date Never Smoker Smokeless Tobacco: Never Used Alcohol Use Drinks/Week oz/Week Comments No Sex Assigned at Date Recorded Not on file documented as of this encounter Plan of Treatment Not on filedocumented as of this encounter Visit Diagnoses Not on filedocumented in this encounter Additional Source Comments [facility] is releasing the current information available at the time of this request. [facility]
--- OUTSIDE RECORDS SUMMARY | 2020-04-15 13:27 | XMS_ITS | Encounter Summary ---
:1975 Author Organization [facility] Address [address] [place] [address] Care Team Providers Name Role Phone Unavailable Primary Care Provider Unavailable Reason for Visit Reason Comments Annual Exam Encounter Details Date Type Department Care Team Description 12/10/2017 Office Visit [place] Juan Mead astopathy, unspecified laterality; [facility] Pat SOLIS MD Well woman exam with routine gynecologic al exam; [address] [place] [address] Leiomyoma [facility]. [address] [phone] [place], [place] [phone] [phone] Social History Tobacco Use Types Packs/Day Years Used Date Never Smoker Smokeless Tobacco: Never Used Alcohol Use Drinks/Week oz/Week Comments No Sex Assigned at Date Recorded Not on file documented as of this encounter Last Filed Vital Signs Vital Sign Reading Time Taken Comments Blood Pressure 120/80 12/10/2017 1:32 PM CDT Pulse - - Temperature - - Respiratory Rate - - Oxygen Saturation - - Inhaled Oxygen Concentration - - Weight 117.4 kg (258 lb 12.8 oz) 12/10/2017 1:32 PM CDT Height 167.6 cm (5' 6) 12/10/2017 1:32 PM CDT Body Mass Index 41.77 12/10/2017 1:32 PM CDT documented in this encounter Progress Notes Juan Mead II, MD - 12/10/2017 1:30 PM CDT SUBJECTIVE: 42 y.o. female for annual routine Pap and checkup. Patient's last menstrual period was 11/24/2017..She has no unusual complaints. last mammo 2y ago Past Medical History: Diagnosis Date ??? A-fib ??? Fibrocystic breast ??? HTN (hypertension) ??? Hypertension ??? Uterine benign neoplasm leiomyoma Past Surgical History: Procedure Laterality Date ??? MYOMECTOMY ??? MYOMECTOMY ??? MYOMECTOMY Social History Social History ??? Marital status: Spouse name: N/A ??? Number of children: N/A ??? Years of education: N/A Occupational History ??? Not on file. Social History Main Topics ??? Smoking status: Never Smoker ??? Smokeless tobacco: Never Used ??? Alcohol use No ??? Drug use: No ??? Sexual activity: Yes Partners: Male Other Topics Concern ??? Not on file Social History Narrative Family History Problem Relation Age of Onset ??? Diabetes Mother ??? Hypertension Mother ??? Cancer Mother ??? Leukemia Mother ??? Coronary art dis Mother ??? Diabetes Father ??? Hypertension Father ??? Coronary art dis Father ??? Hypertension Sister ??? Diabetes Sister ??? Cancer Sister OB History Para Term AB Living 1 1 1 1 SAB TAB Ectopic Multiple Live Births 1 # Outcome Date GA Lbr Arden/2nd Weight Sex Delivery Anes PTL Lv 1 Term Current Outpatient Prescriptions Medication Sig Dispense Refill ??? losartan (COZAAR) 100 MG tablet Take 100 mg by mouth daily ??? magnesium oxide (MAG-OX) 400 mg tablet Take 400 mg by mouth daily ??? potassium chloride (KLOR-CON) 10 MEQ CR tablet Take 10 mEq by mouth daily ??? sotalol (BETAPACE) 160 MG tablet Take 160 mg by mouth 2 (two) times daily No current facility-administered medications for this visit. Allergies: Review of patient's allergies indicates no known allergies. ROS: Constitutional: no weight loss, weight gain, [...] No bruises, bleeding, swollen lymph nodes, anemia. OBJECTIVE: The patient appears well, alert, oriented x 3, in no distress. VITALS: Patient Vitals for the past 24 hrs: Height Weight 12/10/17 1332 5' 6 (1.676 m) 258 lb 12.8 oz (117.4 kg) BP: 120/80 Body mass index is 41.77 kg/(m^2). NECK: NECK SUPPLE- NO MASSES PALPATED SKIN: mobility and turgor normal BREAST EXAM: normal appearance, no masses or tenderness ABDOMEN: no hernias, masses, or hepatosplenomegaly GENITALIA: normal external genitalia, no erythema, no discharge URETHRA: normal without discharge or scarring VAGINA: normal vagina CERVIX: normal appearance UTERUS: enlarged, ULNS weeks size ADNEXA: no mass, fullness, tenderness Age appropriate discussion done regarding annual Pap Smear Screening, annual Mammogram, daily vitamin as well as Calcium and Vitamin D supplementation. ASSESSMENT: Active Problem List with Overview Notes Diagnosis Date Noted ??? Cystic mastopathy, unspecified laterality 12/10/2017 ??? Well woman exam with routine gynecological exam 12/10/2017 ??? Leiomyoma 12/10/2017 PLAN:PAP MAMMOGRAM @ [facility] documented in this encounter Plan of Treatment Not on filedocumented as of this encounter Visit Diagnoses Diagnosis Cystic mastopathy, unspecified lateralit y Well woman exam with routine gynecologic al exam Routine gynecological examination Leiomyoma Other benign neoplasm of connective and other soft tissue of unspecified site documented in this encounter Additional Source Comments [facility] is releasing the current information available at the time of this request. [facility]
--- OUTSIDE RECORDS SUMMARY | 2020-04-15 13:27 | XMS_ITS | Encounter Summary ---
:1975 Author Organization [facility] Address [address] [place] [address] Care Team Providers Name Role Phone Russ Doss MD Primary Care Provider Encounter Details Date Type Department Care Team Description 11/09/2018 Telephone [facility], Taj Mead II, Inc. MD [address] [facility] [address] [address] [address] [place], [place] [phone] [place], [place] [phone] Social History Tobacco Use Types Packs/Day Years [...] on file documented as of this encounter Miscellaneous Notes Telephone Encounter - Juan Mead II, MD - 11/11/2018 1:27 PM CDT 12/31 documented in this encounter Plan of Treatment Not on filedocumented as of this encounter Visit Diagnoses Not on filedocumented in this encounter Additional Source Comments [facility] is releasing the current information available at the time of this request. [facility]
--- OUTSIDE RECORDS SUMMARY | 2020-04-15 13:27 | XMS_ITS | Encounter Summary ---
:1975 Author Organization [facility] and It [facility] Subsidiaries and Affiliates Address [address] [place] [address] Care Team Providers Name Role Phone GENTRY Braswell Unavailable Unavailable MD Romario Primary Care Provider gina Moralez II, MD, F. Unavailable Maggy Agustin MD Unavailable Napoleon Loyola MA Unavailable Unavailable Reason for Visit Reason Comments PT Treatment Physical Medicine (Routine) Status Reason Specialty Diagnoses / Referred By Referred To Procedures Contact Contact Pending Specialty Physical Diagnoses Old tear of lateral meniscus of right knee, unspecified tear type Joe Goldstein Re[facility] Review Services Therapy / Ron Lance, Outpatient Required Outpatient PA-C Services - 1st Rehab [facility] [facility] [address], [place] [address] [place], Phone: [place] [phone] Phone: Encounter Details Date Type Department Care Team Description 02/08/2020 Clinical Support Brit Gallo - Devendra Goldstein, PA-C [address] [place] [address] Right knee pain, unspecified chronicity; Rehab 1st Fl Eric Mccormack, PT Gait abnormality; [address] [place] Decreased r laverne of motion; [place] [address] Social History Tobacco Use Types Packs/Day Years Used Date Never Smoker Smokeless Tobacco: Never Used Alcohol Use Standard Drinks/Week Comments Yes 0 (1 standard drink = 0.6 oz pure alcoho l) weekends Alcohol Habits Answer Date Recorded How often do you have a drink containing alcohol? 2-3 times a week 10/30/2018 How many drinks containing alcohol do you have on a 1 or 2 10/30/2018 typical day when you are drinking? How often do you have six or more drinks on one Never 10/30/2018 occasion? Social Isolation Answer Date Recorded In a typical week, how many times do you More than three jessenia es a week 10/30/2018 talk on the phone with family, friends, or neighbors? How often do you get together with friends Twice a week 11/03/2018 or relatives? How often do you attend alevism or 1 to 4 times per year 10/08 pentecostal services? Do you belong to any clubs or No 10/30/2018 organizations such as alevism groups, unions, fraternal or athletic groups, or school groups? How often do you attend meetings of the Never 10/30/2018 clubs or organizations you belong to? Are you now , , , 10/30/2018 , never or living with a partner? Physical Activity Answer Date Recorded On average, how many days per week do you engage in moderate to 3 days 11/03/2018 strenuous exercise (like walking fast, running, jogging, dancing, swimming, biking, or other activities that cause a light or heavy sweat)? On average, how many minutes do you engage in exercise at th is 60 min 11/03/2018 level? Stress Answer Date Recorded Do you feel stress - tense, restless, nervous, or To some ex tent 11/03/2018 anxious, or unable to sleep at night because your mind is troubled all the time - these days? Financial Resource Strain Answer Date Recorded How hard is it for you to pay for the very basics like Not v bhavesh hard 11/03/2018 food, housing, medical care, and heating? Food Insecurity Answer Date Recorded Within the past 12 months, you worried that your food would Never true 11/03/2018 run out before you got money to buy more. Within the past 12 months, the food you bought just didn't N ever true 11/03/2018 last and you didn't have money to get more. Transportation Needs Answer Date Recorded In the past 12 months, has lack of transportation kept you f rom No 10/30/2018 medical appointments or from getting medications? In the past 12 months, has lack of transportation kept you f rom No 10/30/2018 meetings, work, or getting things needed for daily living? Sex Assigned at Date Recorded Not on file documented as of this encounter Progress Notes Eric Mccormack, PT - 02/08/2020 3:30 PM CST Physical Therapy Daily Treatment Note Name: [facility] Number: [id number] Therapy Diagnosis: Encounter Diagnoses Name Primary? Right knee pain, unspecified chronicity ??? Gait abnormality ??? Decreased range of motion ??? Weakness Physician: Ron Goldstein PA* Visit Date: 02/08/2020 Physician Orders: PT Eval and Treat Medical Diagnosis from Referral: M23.200 (ICD-10-CM) - Old tear of lateral meniscus of right knee, unspecified tear type Evaluation Date: 01/09/2020 Authorization Period Expiration: 03/08/2020 Plan of Care Expiration: 03/08/2020 Visit # / Visits authorized: Time In: 1530 Time Out: 1528 Total Billable Time: 54 minutes Precautions: Standard Subjective Pt reports:She woke up yesterday with her knee feeling great and no pain. She increased her activitylevel yesterday getting toby decorations out of her attic. She reports mild to moderate increase in general knee soreness today, but states she is not concerned. She was compliant with home exercise program. Response to previous treatment: Improved knee extension Functional change: Improved ability to safely ambulate with axillary crutches. Pain: 03/18 Location: peripatellar region Objective Knee Passive Range of Motion: Right Left Flexion 130 +5 Extension 115 Pre- Tx 120 Post- Tx +5 Daily Treatment Remedios received therapeutic exercises to develop strength, endurance, ROM and flexibility for 20 minutes including: Bike completed for 8 min to increase ROM, endurance and decrease pain to improve tolerance to ADLs and age related activities. Hammer Strength Knee Ext 2.5# 4x5 Supine DL Bridge w/TB at Knees 3x12 Remedios participated in neuromuscular re-education activities to improve: Coordination, Kinesthetic, Sense, Proprioception and muscle activation/timing for 9 minutes. 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 Written Home Exercises Provided: New HEP provided per patient isntructions. Exercises were reviewed and Remedios was able to demonstrate them prior to the end of the session. Remedios demonstrated good understanding of the education provided. See EMR under patient instructions for exercises given. Assessment Pt tolerated OKC knee extension loading with no complaints of knee pain. She continues to progress well. Progressed squats to KB goblet squats today to address work related activity requirements. Patient was challenged by dynamic reactive stepping but improved as she became more confident in her ability to load the involved LE. Pt reported decreased knee soreness stating, I feel really good following treatment. Remedios is progressing well towards her goals. Pt will continue to benefit from skilled outpatient physical therapy to address the deficits listed in the problem list box on initial evaluation, provide pt/family education and to maximize pt's levelof independence in the home and community environment. Pt prognosis is Excellent. Pt's spiritual, cultural and educational needs considered and pt agreeable to plan of care and goals. Anticipated barriers to physical therapy: None Goals: Short Term Goals: 4 weeks 1. Pt will be compliant with HEP 50% of prescribed amount. 2. The pt to demo improvement in knee ROM to at least 110 degrees of flexion and -5 degrees extension 3. Improve quad activation to achieve TKE with quad set. ?? Computer Numerical Control Programmer Goals: 10 weeks 1. Pt will be compliant with HEP 100% of prescribed amount. 2. Pt will be able to ambulate full weight bearing on R LE with no AD and no gait deviations. 3. Pt will demonstrate 125 degrees knee flexion 4. Patient will have 5/5 hip abduction, extension, flexion; knee extension, flexion; ankle dorsiflexion, inversion-plantar flexion, eversion-plantarflexion 5. Pt will return to recreational health/wellness activities including frances 6. The pt will report full participation in ADLs and IADLs without restrictions related to R knee pain. Plan Continue progressive loading/strengthening with CKC and OKC activities as appropriate/tolerated. Eric Mccormack PT , DPT SYSTEMS MAINTAINER documented in this encounter Plan of Treatment Not on filedocumented as of this encounter Goals Goal Patient Goal Associated Recent Patient-Stated? Author Type Problems Progress Blood Pressure Blood 197/101 Yes Myochsner, < 130/80 Pressure (02/21/2020 System Messag e 10:15 AM TANK SYSTEMS MAINTAINER) Take at least Blood No Cutura, one BP reading Pressure Precious per week at various times of the day Maintain a low Diet No Cutura, sodium diet Precious Note: [place] [employer] Association (AHA) guideli francisco recommend less than 2000mg of dietary salt per day. Reduce portion size Diet No Luzur aPrecious DIET - Meal Planning Diet No Cutu raPrecious Note: Your goal is to incorporate meal plannin g in your daily routine. Reduce portions Diet No Cutura, C hristina Meal plan Diet No Katie Marco A noah Exercise at least 150 minutes per week. Exercise No Precious Wilson Note: Your goal is to increase exercise routin e and start Spin Classes next week. documented as of this encounter Visit Diagnoses Diagnosis Right knee pain, unspecified chronicity Gait abnormality Abnormality of gait Decreased range of motion Weakness Other malaise and fatigue documented in this encounter
--- OUTSIDE RECORDS SUMMARY | 2020-04-15 13:27 | XMS_ITS | Encounter Summary ---
:1975 Author Organization [facility] Address [address] [place] [address] Care Team Providers Name Role Phone Unavailable Primary Care Provider Unavailable Encounter Details Date Type Department Care Team Description 12/28/2017 Orders Only [place] Juan Mead Acute vaginitis [facility] SOLIS MD [address] [place] [address] [address] [address] [place] [phone] Social History Tobacco Use Types Packs/Day Years Used Date Never Smoker Smokeless Tobacco: Never Used Alcohol Use Drinks/Week oz/Week Comments No Sex Assigned at Date Recorded Not on file documented as of this encounter Plan of Treatment Not on filedocumented as of this encounter Visit Diagnoses Diagnosis Acute vaginitis Vaginitis and vulvovaginitis, unspecifie d documented in this encounter Additional Source Comments [facility] is releasing the current information available at the time of this request. [facility]
--- OUTSIDE RECORDS SUMMARY | 2020-04-15 13:27 | XMS_ITS | Encounter Summary ---
:1975 Author Organization [facility] Address [address] [place] [address] Care Team Providers Name Role Phone Russ Doss MD Primary Care Provider Encounter Details Date Type Department Care Team Description 12/21/2017 Telephone [place] [facility], Regis Jackson, SHOOTING GALLERY OPERATOR [employer] [address] [place] [address] [place], [place] [phone] Social History Tobacco Use Types Packs/Day Years Used Date Never Smoker Smokeless Tobacco: Never Used Alcohol Use Drinks/Week oz/Week Comments No Sex Assigned at Date Recorded Not on file documented as of this encounter Plan of Treatment Not on filedocumented as of this encounter Visit Diagnoses Not on filedocumented in this encounter Additional Source Comments [facility] is releasing the current information available at the time of this request. [facility]
--- OUTSIDE RECORDS SUMMARY | 2020-04-15 13:27 | XMS_ITS | Encounter Summary ---
:1975 Author Organization [facility] and [facility] Subsidiaries and Affiliates Address [address] [place] [address] Care Team Providers Name Role Phone GENTRY [...] Outpatient PA-C Services - [facility]st Rehab [address] [facility] [address], [place] [address] [place], Phone: [place] [phone] Phone: Encounter Details Date Type Department Care Team Description 01/30/2020 Clinical Support Brit Gallo - Devendra Goldstein, PA-C [address] [place] [address] Right knee pain, unspecified chronicity; Rehab 1st Fl Eric Mccormack, PT Gait abnormality; [address] Decreased r laverne of motion; [place] [phone] Social History Tobacco Use Types [...] or relatives? How often do you attend zoroastrian or 1 to 4 times per year 10/08 pentecostalism services? Do you belong to any clubs or No 10/30/2018 organizations such as zoroastrian groups, unions, fraternal or athletic groups, or [...] on file documented as of this encounter Patient Instructions Patient InstructionsCarEric merchant, PT - 01/30/2020 10:00 AM CST LEAD documented in this encounter Progress Notes Eric Mccormack, PT - 01/30/2020 10:00 AM CST Physical Therapy Daily Treatment Note Name: [facility] Number: [id number] Therapy Diagnosis: Encounter Diagnoses Name Primary? Right knee pain, unspecified chronicity ??? Gait abnormality ??? Decreased range of motion ??? Weakness Physician: Ron Goldstein PA* Visit Date: 01/30/2020 Physician Orders: PT Eval and Treat Medical Diagnosis from Referral: M23.200 (ICD-10-CM) - Old tear of lateral meniscus of right knee, unspecified tear type Evaluation Date: 01/09/2020 Authorization Period Expiration: 03/08/2020 Plan of Care Expiration: 03/08/2020 Visit # / Visits authorized: Time In: 0958 Time Out: 1056 Total Billable Time: 54 minutes Precautions: Standard Subjective Pt reports: She did much better following her last PT treatment with decreased pain. She notes the clicking in her anterior knee has dissappeared completed and she has been able to walk around her homewithout any crutches. She is supposed to go back to work next Thursday and is not sure how ready she is for a 12 hour shift. She was compliant with home exercise program. Response to previous treatment: Improved knee extension Functional change: Improved ability to safely ambulate with axillary crutches. Pain: 2/10 Location: peripatellar region Objective Daily Measurements: R Knee PROM: 5-0-120 Daily Treatment Remedios received therapeutic exercises to develop strength, endurance, ROM and flexibility for 27 minutes including: Bike completed for 8 min to increase ROM, endurance and decrease pain to improve tolerance to ADLs and age related activities. Heel slide press w/powerband resistance for TKE 2x10 SLR 4x5 Supine DL Bridge 3x12 DL Shuttle Press 3x8 75# Remedios received the following manual therapy techniques: were applied to the: R Knee for 5 minutes, including: ROM and patellar mobility assessment Remedios participated in neuromuscular re-education activities to improve: Coordination, Kinesthetic, Sense, Proprioception and muscle activation/timing for 9 minutes. The following activities were included: SL Shuttle Press w/external cue for frontal plane knee control and TKE 4x5 ea. 37# Remedios participated in dynamic functional therapeutic activities to improve functional performance for 14 minutes, including: Standing hip hinge x20 Mini squat at treatment table with GTB at knees 3x8 Home Exercises and Patient Education Provided Education provided: - Progressive return to ambulation without AD - Okay to walk without AD as long as gait mechanics are good. Written Home Exercises Provided: New HEP provided per patient isntructions. Exercises were reviewed and Remedios was able to demonstrate them prior to the end of the session. Remedios demonstrated good understanding of the education provided. See EMR under patient instructions for exercises given. Assessment Pt demo'd good gait mechanics without AD today and has progressed very well since her previous treatment. Tolerated progressions to squatting today with no adverse response. Improved quad control with SLR but still challenging. Re- introduced SL press on shuttle today with no complaints of knee pain. Remedios is progressing well towards her goals. [...] to achieve TKE with quad set. ?? Adoption Counselor Goals: 10 weeks 1. Pt will be [...] restrictions related to R knee pain. Plan Progress loading with SL CKC and DL activities as tolerable with goal of progressing to SL step ups at upcoming visits. Eric Mccormack PT , DPT LEAD documented in this encounter Plan of Treatment Not on filedocumented as of this encounter Goals Goal Patient Goal Associated Recent Patient-Stated? Author Type Problems Progress Blood Pressure Blood 197/101 Yes Myochsner, < 130/80 Pressure (02/21/2020 System Messag e 10:15 AM RAMP LEAD) Take at least Blood No Cutura, one BP reading Pressure Precious per week at various times of the day Maintain a low Diet No Cutura, sodium diet Precious Note: [place] Heart Association (AHA) guideli francisco recommend less than 2000mg of dietary salt per day. Reduce portion size Diet No Luzur aPrecious DIET - Meal Planning Diet No Cutu raPrecious Note: Your goal is to incorporate meal plannin g in your daily routine. Reduce portions Diet No Cutura, C hristina Meal plan Diet No Cutjil Marco A noah Exercise at least 150 minutes per week. Exercise No Marco A Wilsonina Note: Your goal is to increase exercise routin e and start Spin Classes next week. documented as of this encounter Visit Diagnoses Diagnosis Right knee pain, unspecified chronicity Gait abnormality Abnormality of gait Decreased range of motion Weakness Other malaise and fatigue documented in this encounter
--- OUTSIDE RECORDS SUMMARY | 2020-04-15 13:27 | XMS_ITS | Encounter Summary ---
:1975 Author Organization [facility] Address [address] [place] [address] Care Team Providers Name Role Phone Russ Doss MD Primary Care Provider Encounter Details Date Type Department Care Team Description 03/11/2016 Telephone [facility] Agus Dawson MD [facility] [address] [place] [id number] [place] [address] [phone] Social History Tobacco Use Types Packs/Day Years Used Date Never Assessed Sex Assigned at Date Recorded Not on file documented as of this encounter Plan of Treatment Not on filedocumented as of this encounter Visit Diagnoses Not on filedocumented in this encounter Additional Source Comments [facility] [place] the current information available at the time of this request. [facility]
--- OUTSIDE RECORDS SUMMARY | 2020-04-15 13:27 | XMS_ITS | Encounter Summary ---
:1975 Author Organization [facility] Address [address] [place] [address] Care Team Providers Name Role Phone GENTRY [...] Outpatient PA-C Services - [facility]st [facility]hab [address] [facility] [address], [place] [address] [place], Phone: [phone] Phone: Encounter Details Date Type Department Care Team Description 01/25/2020 Clinical Support Brit Gallo - Devendra Goldstein, PA-C [address] [place] [address] Right knee pain, unspecified chronicity; Rehab 1st Fl Eric Mccormack, PT Gait abnormality; [address] Decreased r laverne of motion; [place] [phone] Social History Tobacco Use Types [...] or relatives? How often do you attend judaism or 1 to 4 times per year 10/08 hinduism services? Do you belong to any clubs or No 10/30/2018 organizations such as judaism groups, unions, fraternal or athletic groups, or [...] encounter Progress Notes Eric Mccormack, PT - 01/25/2020 9:30 AM CST Physical Therapy Daily Treatment Note Name: [facility] Number: [id number] Therapy Diagnosis: Encounter Diagnoses Name Primary? Right knee pain, unspecified chronicity ??? Gait abnormality ??? Decreased range of motion ??? Weakness Physician: Ron Goldstein PA* Visit Date: 01/25/2020 Physician Orders: PT Eval and Treat Medical Diagnosis from Referral: M23.200 (ICD-10-CM) - Old tear of lateral meniscus of right knee, unspecified tear type Evaluation Date: 01/09/2020 Authorization Period Expiration: 03/08/2020 Plan of Care Expiration: 03/08/2020 Visit # / Visits authorized: Time In: 09 Time Out: 1031 Total Billable Time: 54 minutes Precautions: Standard Subjective Pt reports: She noted mild soreness following her last PT treatment and had increased pain followingperforming step ups with her HEP. She has noted intermittent clicking in her anterior knee as well as anterior knee pain. She has returned to ambulating with both axillary crutches with TDWB. She was compliant with home exercise program. Response to previous treatment: Improved knee extension Functional change: Improved ability to safely ambulate with axillary crutches. Pain: 5/10 Location: peripatellar region Objective Daily Measurements: Observation: Incision sites are covered with waterproof bandage with no visible signs of infection in the region. Pat presented to PT today wearing EDISON hose. Gait: Ambulates with axillary crutches x2 w/TDWB with decreased knee flexion and MTP extension compared to previous treatment Edema: Mid-Patellar circumference: R 2.0cm greater than L Palpation: TTP over patella and with gentle patellar compression. No notable TTP over medial or lateral joint line. Mild TTP over medial and lateral Hoffa's fat pad. Daily Treatment Remedios received therapeutic exercises to develop strength, endurance, ROM and flexibility for 26 minutes including: LE Elevated Ankle Pumps 2x15 Heel Slides w/strap Self-patellar mobs Heel Prop LLD ext w/5# overpressure x4 mins Remedios received the following manual therapy techniques: were applied to the: R Knee for 14 minutes, including: Knee PROM Patellar/fat pad mobilization AP Tib-fem mobilizations Remedios participated in neuromuscular re-education activities to improve: Balance, Coordination, Kinesthetic, Sense, Proprioception and timing/activation for 14 minutes. The following activities were included: Quad set w/heel prop 4x5 w/5 holds Standing weight shift with quad activation for TKE timing/sequencing Home Exercises and Patient Education Provided Education provided: - Continue to ambulate with best possible gait mechanics and use x2 axillary crutches as needed to return to previous WB level. - Avoid Step ups and FWB to decrease tissue irritability with progressive return to WB. Written Home Exercises Provided: New HEP provided per patient isntructions. Exercises were reviewed and Remedios was able to demonstrate them prior to the end of the session. Remedios demonstrated good understanding of the education provided. See EMR under patient instructions for exercises given. Assessment Pt demonstrates increased tissue irritability and pain secondary to swelling with today's treatment.No mechanical signs noted during today's assessment. Improved knee flexion ROM with improved tolerance to WB and gait mechanics following today's treatment. Pt demo's continued ability to perform quad set with TKE with heel prop. HEP regressed today to account for increased sxs irritability. Remedios is progressing well towards her goals. [...] to achieve TKE with quad set. ?? 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 Pt will be [...] restrictions related to R knee pain. Plan Assess for return to ambulation with 1 AD next visit pending improvement in WB tolerance and sxs irritability and intensity. Eric Mccormack PT , DPT LAYING FITTER documented in this encounter Plan of Treatment Not on filedocumented as of this encounter Goals Goal Patient Goal Associated Recent Patient-Stated? Author Type Problems Progress Blood Pressure Blood 197/101 Yes Myochsner, < 130/80 Pressure (02/21/2020 System Messag e 10:15 AM PIPELAYING FITTER) Take at least Blood No Cutura, one BP reading Pressure Precious per week at various times of the day Maintain a low Diet No Cutura, sodium diet Precious Note: [place] [employer] (AHA) guideli francisco recommend less than 2000mg of dietary salt per day. Reduce portion size Diet No Luzur aPrecious DIET - Meal Planning Diet No Cutu raPrecious Note: Your goal is to incorporate meal plannin g in your daily routine. Reduce portions Diet No Cutura, C hristina Meal plan Diet No Marco A Wilson noah Exercise at least 150 minutes per [...]
--- OUTSIDE RECORDS SUMMARY | 2020-04-15 13:27 | XMS_ITS | Encounter Summary ---
:1975 Author Organization [facility] Address [address] [place] [address] Care Team Providers Name Role Phone Russ Doss MD Primary Care Provider Reason for Referral Consultation (Routine) Status Reason Specialty Diagnoses / Referred By Referred To Procedures Contact Contact Closed Specialty Cardiology Diagnoses Atrial fibrillation, unspecified type [facility], [facility] Required [address] [place] [phone] Phone: Scheduling Instructions Hx of HTN and Afib Encounter Details Date Type Department Care Team Description 02/12/2017 Community [facility], [facility] fibrillation, [address] unspecified type [facility] [phone] [place], [place] [phone] Social History Tobacco Use Types Packs/Day Years Used Date Never Assessed Sex Assigned at Date Recorded Not on file documented as of this encounter Plan of Treatment Scheduled Referrals Name Type Priority Associated Diagnoses Order S chedule Ambulatory Referral Outpatient Referral Routine Atrial fibrill ation, Ordered: to Cardiology unspecified type 02/12/2017 documented as of this encounter Visit Diagnoses Diagnosis Atrial fibrillation, unspecified type documented in this encounter Additional Source Comments [facility] is releasing the current information available at the time of this request. [facility]
--- OUTSIDE RECORDS SUMMARY | 2020-04-15 13:27 | XMS_ITS | Encounter Summary ---
:1975 Author Organization [facility] Address [address] [place] [address] Care Team Providers Name Role Phone Unavailable Primary Care Provider Unavailable Encounter Details Date Type Department Care Team Description 12/28/2017 Telephone [facility], Taj Mead II, Lilian. [address] [facility] [address] [address] [address] [place], [place] [phone] [place], [place] [phone] Social History Tobacco Use Types Packs/Day Years Used Date Never Smoker Smokeless Tobacco: Never Used Alcohol Use Drinks/Week oz/Week Comments No Sex Assigned at Date Recorded Not on file documented as of this encounter Plan of Treatment Not on filedocumented as of this encounter Visit Diagnoses Not on filedocumented in this encounter Additional Source Comments [facility] [place] is releasing the current information available at the time of this request. [facility]
--- OUTSIDE RECORDS SUMMARY | 2020-04-15 13:27 | XMS_ITS | Encounter Summary ---
:1975 Author Organization [facility] Address [address] [place] [id number] Care Team Providers Name Role Phone Unavailable Primary Care Provider Unavailable Reason for Referral Consultation (Routine) Status Reason Specialty Diagnoses / Referred By Referred To Procedures Contact Contact Denied Specialty Wound Care / Wound Diagnoses Pain of right hand [facility] Care/ Hyperbarics Marta Baltazar MD [address] [facility] [address] [place], Phone: [place] [phone] Phone: Occupational Therapy (Next Available) Status Reason Specialty Diagnoses / Referred By Referred To Procedures Contact Contact Closed Specialty Occupational Diagnoses [facility] of [facility] Marta Cameron [address] [facility] [address] Simón Baltazar MD [address] [address] Street Phone: [facility] [phone] [place] [id number] Reason for Visit Reason Comments Other Frostbite to left hand Encounter Details Date Type Department Care Team Description 02/22/2016 Emergency [facility] EMERGENCY [facility]PT Marta Rose Pain of right hand [address] MD (Primary Dx) [place], [place] [address] [address] [place], [place] [phone] Social History Tobacco Use Types Packs/Day Years Used Date Never Smoker Alcohol Use Drinks/Week oz/Week Comments No Sex Assigned at Date Recorded Not on file documented as of this encounter Last Filed Vital Signs Vital Sign Reading Time Taken Comments Blood Pressure 149/85 02/22/2016 12:38 PM HATCH TENDER Pulse 78 02/22/2016 12:38 PM HATCH TENDER Temperature - - Respiratory Rate 16 02/22/2016 12:38 PM HATCH TENDER Oxygen Saturation 99% 02/22/2016 12:38 PM HATCH TENDER Inhaled Oxygen Concentration - - Weight 115.7 kg (255 lb) 02/22/2016 12:38 PM HATCH TENDER Height 170.2 cm (5' 7) 02/22/2016 12:38 PM HATCH TENDER Body Mass Index 39.94 02/22/2016 12:38 PM HATCH TENDER documented in this encounter Discharge Instructions Marta Rowan MD - 02/22/2016 Take your medications as prescribed Muscle and Bone Pain Discharge Instructions About this topic You can have pain in many different areas of your body. Sometimes, it is hard for the doctor to tellexactly where the pain is coming from. You can have pain in your muscles, bones, or joints. It can also happen in your tendons and ligaments which connect these together. If you have an injury, you may have signs like: ?? Pain, either in one part of your body or all over ?? Aches or stiffness ?? Feeling of a muscle pull ?? Muscle twitching ?? Feeling of burning in your muscles ?? Being very tired ?? Not sleeping well Causes of this kind of pain may include: ?? Overuse or using a muscle in the same way over and over ?? Trauma from falls, accidents, direct blows to muscles, and injuries such as bone breaks, sprains,or dislocations ?? Strain on your muscles from bad posture ?? Having a body part held in one position for a long period of time What care is needed at home? Ask your doctor what you need to do when you go home. Make sure you ask questions if you do not understand what the doctor says. This way you will know what you need to do. Your care at home will depend on what the cause of your problem is. This may include: ?? Avoiding or stopping activities that cause you pain. ?? Using a splint or brace for a period of time. This will let the injured area rest and heal. ?? Heat can help lower pain. Your doctor may suggest that you soak in warm water. If your doctor tells you to use heat, put a heating pad on the painful part for no more than 20 minutes at a time. Never go to sleep with a heating pad on as this can cause fischer. ?? Place an ice pack or a bag of frozen peas wrapped in a towel over the painful part. Never put iceright on the skin. Do not leave the ice on more than 10 to 15 minutes at a time. ?? Exercises to stretch and make muscles stronger. ?? Methods to help you relax ?? Massage therapy ?? Other therapies such as acupuncture and acupressure ?? Pain relieving or anti-inflammatory drugs. These can be taken by mouth or given as a shot into ornear the painful part. ?? Other drugs for patients with some health problems such as fibromyalgia. These would help with sleep, pain, and the immune system. ?? Surgery may be needed for problems such as bone breaks or other injuries. What follow-up care is needed? Your doctor may ask you to make visits to the office to check on your progress. Be sure to keep all these visits. Your doctor may send you to physical therapy, occupational therapy, or a chiropractor to help you heal faster. Will physical activity be limited? Your doctor may ask you to rest and limit your activity. This could last for a few days to a number of weeks based on how bad your problem is. Your doctor may want you to use a brace or splint to keep your injured area still for a while. What can be done to prevent this health problem? ?? Some injuries are due to using a muscle in the same way over and over again. You may need to stopor limit an activity to let your injury heal. ?? Lead an active lifestyle and keep your muscles strong and flexible to keep these injuries from happening. ?? Keep a healthy weight to avoid too much strain on your joints and muscles. ?? Use good posture and good body mechanics. This will help you stay pain free. When do I need to call the doctor? ?? Signs of a very bad reaction. These include wheezing; chest tightness; fever; itching; bad cough;blue skin color; seizures; or swelling of face, lips, tongue, or throat. Go to the ER right away. ?? Signs of infection. These include a fever of 100.4??F (38??C) or higher, chills, very bad sore throat, ear or sinus pain, cough, more sputum or change in color of sputum, pain with passing urine, mouth sores, or wound that will not heal. ?? If your pain does not go away and your drugs are not helping ?? If you have very bad pain and you do not know why ?? You are not feeling better in 2 to 3 days or you are feeling worse Teach Back: Helping You Understand The Teach Back Method helps you understand the information we are giving you. The idea is simple. After talking with the staff, tell them in your own words what you were just told. This helps to make sure the staff has covered each thing clearly. It also helps to explain things that may have been a bit confusing. Before going home, make sure you are able to do these: ?? I can tell you about my pain. ?? I can tell you what may help ease my pain. ?? I can tell you what I will do if I my pain does not go away or my pain drugs are not helping. Last Reviewed Date 2014-08-21 Consumer Information Use and Disclaimer This information is not specific medical advice and does not replace information you receive from your health care provider. This is only a brief summary of general information. It does NOT include allinformation about conditions, illnesses, injuries, tests, procedures, treatments, therapies, discharge instructions or life-style choices that may apply to you. You must talk with your health care provider for complete information about your health and treatment options. This information should not beused to decide whether or not to accept your health care provider???s advice, instructions or recommendations. Only your health care provider has the knowledge and training to provide advice that is right for you. Copyright Copyright ?? 2016 [employer] and its affiliates and/or licensors. All rights reserved. AttachmentsThe following attachments cannot be sent through Care Everywhere. FROSTBITE DISCHARGE INSTRUCTIONS (SIERRA LEONEAN)documented in this encounter Medications at Time of Discharge Medication Sig Dispensed Refills Start Date End Date losartan (COZAAR) 100 MG Take 100 mg by mouth 0 12/27/2018 tablet daily magnesium oxide (MAG-OX) Take 400 mg by mouth 0 12/27/2018 400 mg tablet daily potassium chloride Take 10 mEq by mouth 0 12/27/2018 (KLOR-CON) 10 MEQ CR daily tablet sotalol (BETAPACE) 160 MG Take 160 mg by mouth 0 12/27/2018 tablet 2 (two) times daily documented as of this encounter ED Notes Marta Rose MD - 02/22/2016 2:49 PM CST History Chief Complaint Patient presents with ??? Other Frostbite to left hand Patient is a 40 y.o. female presenting with GENERIC. Other Patient is a 40 year old female who presents to the [facility] secondary to hand pain after carcamo bite injury to hand on . Patient states she was in [place] on 02/15/2016 and per patient incurreda first degree frostbite injury to hand at that time. Patient states that she was seen by an MD in [place] at time of initial injury and was advised to let the injury work itself out. States she was given no specific instructions other than her hand would get better gradually. Patient states initially she had some swelling and numbness, and discomfort to hand. . States thatafter a few days the swelling dramatically improved. Patient states also that she has NO pain or discomfort to hand. States that she has persisted with some numbness to fingers. Patient denies any fever or chills, no weakness/dizziness, normal ROM all digits/hand/wrist, no other complaints. No other injury or trauma. Past Medical History Diagnosis Date ??? A-fib ??? Hypertension Past Surgical History Procedure Laterality Date ??? Myomectomy No family history on file. Social History Substance Use Topics ??? Smoking status: Never Smoker ??? Smokeless tobacco: None ??? Alcohol use No Review of Systems ROS: General: No appetite change; no change in activity level; no fever; no chills; no diaphoresis; no fatigue; No unexpected weight changes; HEENT/Neck: No facial swelling; no visual changes; no headaches; no discharge to eye; no eye pain; no eye erythema; no photophobia; no neck pain; no neck stiffness; no lymphadenopathy; no ear pain; no hearing changes; no nose bleeds; no nasal congestion; no postnasal drip; no sinus tenderness; no dental pain; no drooling/stridor/hoarseness/muffled voice; no difficulty swallowing; no sore throat Pulmonary: No cough, no wheezing; no shortness of breath Cardiovascular: No chest pain, no palpitations Gastrointestinal: No abdominal pain, no abdominal distention; no bright red blood per rectum; no melena; no constipation; no diarrhea; no nausea; no vomiting; no rectal pain Genitourinary: No difficulty urinating; no dysuria; no frequency; no urgency; no flank pain, nohematuria, No vaginal lesions, no vaginal discharge; no vaginal bleeding; no pelvic pain; Musculoskeletal: No back pain; no joint swelling; no joint pain; no muscle aches Neurologic: No focal neurological deficits; no bladder or bowel incontinence; no weakness; No dizziness; +numbness affected fingers; no ataxic gait, no strength deficits; no motor deficits; No speech changes; no seizures Skin: No rash, no lesions; no petechiae, no purpura, no open wounds; no ecchymosis; no bruises; Psychiatric: No suicidal ideations; no homicidal ideations; no visual hallucination; No auditory hallucinations Physical Exam Blood pressure 149/85, pulse 78, resp. rate 16, height 1.702 m (5' 7), weight (!) 115.7 kg (255 lb), last menstrual period 02/07/2016, SpO2 99 %. Physical Exam GEN: Alert and oriented x 4 Not toxic appearing Airway intact HEENT: NC/AT PERRLA/EOMI No sinus tenderness to palpation TMs normal light reflex, no perforations, no hemotympanum Turbinates WNL; no septal hematoma; no blood to nares No pharyngeal exudate/erythema/edema, no tonsillar exudate or enlargement Mouth: no abscess formation; dentition intact NECK: Supple/ FROM/nonpainful ROM Non tender to palpation midline; no step off deformities Negative lymphadenopathy HEART: RRR no murmur or gallop LUNGS: CTA bilaterally no wheezes, no rhonchi ABDOMEN: Soft/nontender/ non distended +BS No rebound or guarding BACK: Normal ROM Nonpainful ROM Non tender to palpation of midline EXTREMITIES: No cyanosis/clubbing/or edema including all digits NROM all extremities including all digits/ hand/wrists/upper extremities Nonpainful ROM all extremities including all digits/hand/wrists/upper extremities 2+DP/radial pulses/ normal capillary refill NEUROLOGIC: CNII-XII intact No motor or sensory deficit Except some mild subjective numbness to distal fingertips/pads of fingers of affected hand. Normal gait SKIN: No rashes Warm and dry No open wounds, no gangrenous changes to digits ED Course ED Course Procedures Findings: Estimated Blood Loss: Specimens Removed: Postoperative Diagnosis: MDM Patient w/ hx of carcamo bite; some residual numbness; Otherwise states all symptoms improving. I advised patient that I would acquire baseline labs/xrays /other diagnostic studies but patient refused any further testing at this time and requests to sign AMA Patient AXOX4, ambulatory , no nystagmus, no slurring of speech. Patient is aware of risks/complications involved with signing AMA inclusive of . AMA signed witnessed and scanned to chart. Patient is aware that she may and should return to the ER at any time and for any complaint. I did advise patient that I would send occupational therapy referral and HBOT referral for TCOMS Pt Advised f/u [facility] Patient AMA Visit Diagnoses: Diagnoses that have been ruled out: None Diagnoses that are still under consideration: None Final diagnoses: Pain of right hand Re-Evaluation Vitals Reviewed? Pain status post procedure? Pain status post medication? Attending Provider Provider Specialty From To Marta Rose MD Emergency Medicine 02/22/16 0794 -- Marta Rose MD 02/29/16 3727 Jennifer Fitzpatrick LPN - 02/22/2016 1:48 PM CSTBed: 2745 Expected date: Expected time: Means of arrival: Comments: CLOSED Jennifer Allen LPN - 02/22/2016 1:47 PM CSTBed: RTA3 Expected date: Expected time: Means of arrival: Comments: CLOSED H TENDER Buffy Wills RN - 02/22/2016 12:35 PM CSTPresents to ED with c/o 1st degree frostbite to left hand on 02-15-16. Patient reports she was in [place] when her hands were exposed to Negative 14 degrees. Patient reports she was seen at [facility] and dx with frostbite. Patient reports her hand has darkened in color and pain continues to increase. Left hand warm to touch, +2 radial pulse. documented in this encounter Plan of Treatment Scheduled Referrals Name Type Priority Associated Order Schedule Diagnoses Ambulatory Referral Outpatient Referral Routine Pain of right hand Ordered: to Occupational 02/22/2016 Therapy Ambulatory Referral Outpatient Referral Routine Pain of right hand Ordered: to Hyperbarics 02/29/2016 documented as of this encounter Visit Diagnoses Diagnosis Pain of right hand - Primary Pain in limb documented in this encounter Additional Source Comments [facility] releasing the current information available at the time of this request. [facility]
--- OUTSIDE RECORDS SUMMARY | 2020-04-15 13:27 | XMS_ITS | Encounter Summary ---
:1975 Author Organization [facility] Address [address] [place] [address] Care Team Providers Name Role Phone Unavailable Primary Care Provider Unavailable Encounter Details Date Type Department Care Team Description 11/01/2018 Telephone [facility], Taj Mead II, Lilian. [address] [facility] [address] [address] [address] [place], [place] [phone] [place], [place] [id number] Social History Tobacco Use Types Packs/Day Years Used Date Never Smoker Smokeless Tobacco: Never Used Alcohol Use Drinks/Week oz/Week Comments No Sex Assigned at Date Recorded Not on file documented as of this encounter Plan of Treatment Not on filedocumented as of this encounter Visit Diagnoses Not on filedocumented in this encounter Additional Source Comments [facility] is releasing the current information available at the time of this request. [facility]
--- OUTSIDE RECORDS SUMMARY | 2020-04-15 13:27 | XMS_ITS | Encounter Summary ---
:[address] [facility] Address [address] [place] [address] Care Team Providers Name Role Phone GENTRY [...] Outpatient PA-C Services - [facility] [address] [facility] [address], [place] [address] [place], Phone: [place] [phone] Phone: Encounter Details Date Type Department Care Team Description 02/06/2020 Clinical Support Brit Gallo - Devendra Goldstein, PA-C [address] [place] [address] Right knee pain, unspecified chronicity; Rehab 1st Fl Eric Mccormack, PT Gait abnormality; [address] Decreased r laverne of motion; [place] [address] Social History Tobacco Use Types [...] or relatives? How often do you attend mosque or 1 to 4 times per year 10/08 buddhist services? Do you belong to any clubs or No 10/30/2018 organizations such as mosque groups, unions, fraternal or athletic groups, or [...] encounter Progress Notes Eric Mccormack, PT - 02/06/2020 10:30 AM CST Physical Therapy Daily Treatment Note Name: Remedios [facility] Number: [id number] Therapy Diagnosis: Encounter Diagnoses Name Primary? Right knee pain, unspecified chronicity ??? Gait abnormality ??? Decreased range of motion ??? Weakness Physician: Ron Goldstein PA* Visit Date: 02/06/2020 Physician Orders: PT Eval and Treat Medical Diagnosis from Referral: M23.200 (ICD-10-CM) - Old tear of lateral meniscus of right knee, unspecified tear type Evaluation Date: 01/09/2020 Authorization Period Expiration: 03/08/2020 Plan of Care Expiration: 03/08/2020 Visit # / Visits authorized: Time In: 1030 Time Out: 1126 Total Billable Time: 54 minutes Precautions: Standard Subjective Pt reports: Her knee is feeling good. She was on her feet a lot cooking Thursday and had mildly increased soreness and a little swelling the next day, but this dissipated by Thursday. She has been progressively increaseing her time walking and standing and feels like she is doing well. She is pretty much able to stand/walk and go about her day without limitation at this point. She was compliant with home exercise program. Response to previous treatment: Improved knee extension Functional change: Improved ability to safely ambulate with axillary crutches. Pain: 03/18 Location: peripatellar region Objective Daily Measurements: Mid-Pat circumference R: 57cm L: 55.5cm Daily Treatment Remedios received therapeutic exercises to develop strength, endurance, ROM and flexibility for 27 minutes including: Bike completed for 8 min to increase ROM, endurance and decrease pain to improve tolerance to ADLs and age related activities. SLR 4x5 SAQ 4x5 5# Supine DL Bridge w/TB at Knees 3x12 Remedios participated in neuromuscular re-education activities to improve: Coordination, Kinesthetic, Sense, Proprioception and muscle activation/timing for 9 minutes. The following activities were included: SL Shuttle Press w/external cue for frontal plane knee control and TKE 3x8 ea. 50# Remedios participated in dynamic functional therapeutic activities to improve functional performance for 18 minutes, including: Body squats w/TB at knees 5x8 Slow Depth squat to bench for external cue at rig 5x5 6 Forward Bax Step ups 5x5 ea. Home Exercises and Patient Education Provided Education [...] patient instructions for exercises given. Assessment Pt continues to progress well with no signs of adverse response to recent progressions. Progress with loaded OKC knee extension today with SAQ with ecellent tolerance and ability to achieve TKE with external resistance Minimal extension lag with SLR on 3rd or 4th repetition of each set. Progressed SL S huttle squat resistance and set/rep scheme today with excellent tolerance. Remedios is progressing well towards her goals. [...] to achieve TKE with quad set. ?? Skilled Nursing Goals: 10 weeks 1. Pt will be [...] with CKC and OKC activities as appropriate/tolerated. Assess for OKC knee extension progression and adding resistance with DL squat next visit. Eric Mccormack PT , DPT TY TREASURER documented in this encounter Plan of Treatment Not on filedocumented as of this encounter Goals Goal Patient Goal Associated Recent Patient-Stated? Author Type Problems Progress Blood Pressure Blood 197/101 Yes Myochsner, < 130/80 Pressure (02/21/2020 System Messag e 10:15 AM DEPUTY TREASURER) Take at least Blood No Cutjil, one BP reading Pressure Precious per week at various times of the day Maintain a low Diet No Cutura, sodium diet Precious Note: [place] [employer] (AHA) guideli francisco recommend less than 2000mg of dietary salt per day. Reduce portion size Diet No Luzur aPrecious DIET - Meal Planning Diet No Cutu raPrecious Note: Your goal is to incorporate meal plannin g in your daily routine. Reduce portions Diet No Katie, C hristina Meal plan Diet No Marco A Wilson Exercise at least 150 minutes per week. [...]
--- OUTSIDE RECORDS SUMMARY | 2020-04-15 13:27 | XMS_ITS | Encounter Summary ---
:1975 Author Organization [facility] Health Address [address] [place] [address] Care Team Providers Name Role Phone Russ Doss MD Primary Care Provider Encounter Details Date Type Department Care Team Description 11/03/2018 Follow-Up Wayne Juan Mead an exam with routine gynecological exam; [facility] Pat SOLIS MD Leiomyoma; [address] Diffuse cystic mastopathy of both breast s; [address] Left ovarian cyst; [place], [facility], [place] Severe dy smenorrhea [id number] Social History Tobacco Use Types Packs/Day [...] Sign Reading Time Taken Comments Blood Pressure 130/80 11/03/2018 10:41 AM CDT Pulse - - Temperature - - Respiratory Rate - - Oxygen Saturation - - Inhaled Oxygen Concentration - - Weight - - Height - - Body Mass Index - - documented in this encounter Patient Instructions Patient Instructionsbessn Juan Moralez II, MD - 11/03/2018 10:15 AM CDT Provera 10 bid documented in this encounter Progress Notes Juan Mead II, MD - 11/03/2018 10:15 AM CDT SUBJECTIVE: 43 y.o. female for annual routine Pap and checkup. No LMP recorded.. She has no unusual complaints.Left pelvic pain. LMP10/04 mammo 03/27 Past Medical History: Diagnosis Date ??? A-fib ??? Fibrocystic breast ??? HTN (hypertension) ??? Hypertension ??? Uterine benign neoplasm leiomyoma Past Surgical History: Procedure Laterality Date ??? MYOMECTOMY ??? MYOMECTOMY ??? MYOMECTOMY Social History Socioeconomic History ??? Marital status: [...] file Gets together: Not on file Attends gnosticism service: Not on file Active member of [...] Anes PTL Lv 1 Term Current Outpatient Medications Medication Sig Dispense Refill ??? losartan (COZAAR) 100 MG tablet Take 100 mg by mouth daily ??? magnesium oxide (MAG-OX) 400 mg tablet Take 400 mg by mouth daily ??? medroxyPROGESTERone (PROVERA) 10 MG tablet Bid 10 tablet 11 ??? potassium chloride (KLOR-CON) 10 MEQ CR tablet Take 10 mEq by mouth daily ??? sotalol (BETAPACE) 160 MG tablet Take 160 mg by mouth 2 (two) times daily No current facility-administered medications for this visit. Allergies: Patient has no known allergies. ROS: Constitutional: no weight [...] oriented x 3, in no distress. VITALS: No data found. BP: 120/80 There is no height or weight on file to calculate BMI. NECK: NECK SUPPLE- NO MASSES PALPATED SKIN: mobility and turgor normal BREAST EXAM: normal appearance, no masses or tenderness ABDOMEN: no hernias, masses, or hepatosplenomegaly GENITALIA: normal external genitalia, no erythema, no discharge URETHRA: normal without discharge or scarring VAGINA: normal vagina CERVIX: normal appearance UTERUS: enlarged, 10 week size weeks size ADNEXA: positive for: tenderness on the left Age appropriate discussion done regarding annual Pap Smear Screening, annual Mammogram, daily vitamin as well as Calcium and Vitamin D supplementation. ASSESSMENT: Active Problem List with Overview Notes Diagnosis Date Noted ??? Diffuse cystic mastopathy of both breasts 11/03/2018 ??? Severe dysmenorrhea 11/03/2018 ??? Left ovarian cyst 11/03/2018 ??? Well woman exam with routine gynecological exam 12/10/2017 ??? Leiomyoma 12/10/2017 PELVIC SONO: PELVIC ULTRASOUND CLINICAL HISTORY: Benign [...] is no free fluid in the pelvis. PLAN:PAP Provera 10 bidfor 5 days Pt wants hyst documented in this encounter Plan of Treatment Not on filedocumented as of this encounter Visit Diagnoses Diagnosis Well woman exam with routine gynecologic al exam Routine gynecological examination Leiomyoma Other benign neoplasm of connective and other soft tissue of unspecified site Diffuse cystic mastopathy of both breast s Left ovarian cyst Other and unspecified ovarian cyst Severe dysmenorrhea documented in this encounter Additional Source Comments [facility] is releasing the current information available at the time of this request. [facility] [employer]
--- OUTSIDE RECORDS SUMMARY | 2020-04-15 13:27 | XMS_ITS | Encounter Summary ---
:1975 Author Organization [facility] and [facility] Measur[facility] Subsidiaries and Affiliates Address [address] [place] [address] Care Team Providers Name Role Phone GENTRY Braswell Unavailable Unavailable MD Romario Primary Care Provider gina Moralez II, MD, F. Unavailable Maggy Agustin MD Unavailable Napoleon Loyola MA Unavailable Unavailable Reason for Visit Reason Comments Pain Encounter Details Date Type Department Care Team Description 02/21/2020 Office Visit Rui Solorio Surge ry follow-up Sports Med 1st Sd MD examination (Primary [address]) [facility] [id number] 1ST FLOOR BUILDING [phone] [address] [employer] Catalyst Operator: [place] [address] [phone] Social History Tobacco Use Types Packs/Day Years [...] or relatives? How often do you attend sikh or 1 to 4 times per year 10/08 scientologist services? Do you belong to any clubs or No 10/30/2018 organizations such as sikh groups, unions, fraternal or athletic groups, or [...] Sign Reading Time Taken Comments Blood Pressure 197/101 02/21/2020 10:15 AM PROPOSAL REVIEW ANALYST Pulse 89 02/21/2020 10:15 AM PROPOSAL REVIEW ANALYST Temperature - - Respiratory Rate - - Oxygen Saturation - - Inhaled Oxygen Concentration - - Weight 129.7 kg (286 lb) 02/21/2020 10:15 AM PROPOSAL REVIEW ANALYST Height 167.6 cm (5' 6) 02/21/2020 10:15 AM PROPOSAL REVIEW ANALYST Body Mass Index 46.16 02/21/2020 10:15 AM PROPOSAL REVIEW ANALYST documented in this encounter Progress Notes Rui Lux MD - 02/21/2020 10:15 AM CSTS:Remedios Schofield presents for post-operative evaluation. DATE OF PROCEDURE: 01/06/2020 PROCEDURE PERFORMED: Right 1. knee arthroscopic partial lateral meniscectomy (CPT 89936)? 2. knee arthroscopic limited synovectomy (CPT 98049) 3. knee arthroscopic chondroplasty BMI 46 Remedios Schofield reports to be doing well 6 wk s/p the above mentioned procedure. Going to PT 2xWeek at the [place] location. Seeing good progress daily. Pain levels are improving She denies any pain in clinic today. She is still using crutches to assist with ambulation, however she states that she will be progressing to 1 crutch starting next week. O: RLE: The incisions are well-healed. No effusion. Good quadriceps bulk and activation. Full active extension, flexion to 130??. No significant pain. A/P: -Continue therapy, focus on strengthening and functional exercises. -Continue HEP and continue efforts with weight loss -Take OTC NSAID's as needed for pain -RTC 6 weeks documented in this encounter Plan of Treatment Not on filedocumented as of this encounter Goals Goal Patient Goal Associated Recent Patient-Stated? Author Type Problems Progress Blood Pressure Blood 197/101 Yes Myochsner, < 130/80 Pressure (02/21/2020 System Messag e 10:15 AM PROPOSAL REVIEW ANALYST) Take at least Blood No Cutura, one BP reading Pressure Precious per week at various times of the day Maintain a low Diet No Cutura, sodium diet Precious Note: [place] [employer] Association (AHA) guideli francisco recommend less than 2000mg of dietary salt per day. Reduce portion size Diet No Precious Hernandez DIET - Meal Planning Diet No Cutu Precious castaneda Note: Your goal is to incorporate meal plannin g in your daily routine. Reduce portions Diet No Sumaya Wilson hristina Meal plan Diet No Marco A Wilson Exercise at least 150 minutes per week. Exercise No Precious Wilson Note: Your goal is to increase exercise routin e and start Spin Classes next week. documented as of this encounter Visit Diagnoses Diagnosis Surgery follow-up examination - Primary Follow-up examination, following unspeci fied surgery documented in this encounter
--- OUTSIDE RECORDS SUMMARY | 2020-04-15 13:27 | XMS_ITS | Encounter Summary ---
:1975 Author Organization [facility] and It s Subsidiaries and Affiliates Address [address] [place] [address] Care Team Providers Name Role Phone GENTRY [...] Outpatient PA-C Services - [address]st [address]hab [address], [place] [address] [place], Phone: [place] [phone] Phone: Encounter Details Date Type Department Care Team Description 01/31/2020 Clinical Support Brit Gallo - Devendra Goldstein, PA-C [address] [place] [address] Right knee pain, unspecified chronicity; Rehab 1st Fl Eric Mccormack, PT Gait abnormality; [address] [place] Decreased r laverne of motion; [place] [address] Social History Tobacco Use Types [...] or relatives? How often do you attend samaritan or 1 to 4 times per year 10/08 islam services? Do you belong to any clubs or No 10/30/2018 organizations such as samaritan groups, unions, fraternal or athletic groups, or [...] encounter Progress Notes Eric Mccormack, PT - 01/31/2020 2:00 PM CST Physical Therapy Daily Treatment Note Name: Remedios Winter Schofield Clinic Number: [id number] Therapy Diagnosis: Encounter Diagnoses Name Primary? Right knee pain, unspecified chronicity ??? Gait abnormality ??? Decreased range of motion ??? Weakness Physician: Ron Goldstein PA* Visit Date: 01/31/2020 Physician Orders: PT Eval and Treat Medical Diagnosis from Referral: M23.200 (ICD-10-CM) - Old tear of lateral meniscus of right knee, unspecified tear type Evaluation Date: 01/09/2020 Authorization Period Expiration: 03/08/2020 Plan of Care Expiration: 03/08/2020 Visit # / Visits authorized: Time In: 1402 Time Out: 1457 Total Billable Time: 55 minutes Precautions: Standard Subjective Pt reports: She is doing very well. She was able to walk around [facility] yesterday with minimal discomfort. She is planning to slowly ramp up her time spent walking/standing over the rest of the week as she was instructed by her physican to prepare to work a 12 hour shift next Thursday. She was compliant with home exercise program. Response to previous treatment: Improved knee extension Functional change: Improved ability to safely ambulate with axillary crutches. Pain: 03/18 Location: peripatellar region Objective Daily Measurements: NT Daily Treatment Reemdios received therapeutic exercises to develop strength, endurance, ROM and flexibility for 28 minutes including: Bike completed for 8 min to increase ROM, endurance and decrease pain to improve tolerance to ADLs and age related activities. Supine DL Bridge 3x12 DL Shuttle Press 3x8 75# Lateral Band Walks at counter 3x15 ft <-> Remedios participated in neuromuscular re-education activities to improve: Coordination, Kinesthetic, Sense, Proprioception and muscle activation/timing for 9 minutes. The following activities were included: SL Shuttle Press w/external cue for frontal plane knee control and TKE 4x5 ea. 37# Remedios participated in dynamic functional therapeutic activities to improve functional performance for 16 minutes, including: Body squats w/TB at knees 5x6 4 Forward Bax Step ups 5x5 ea. Home [...] instructions for exercises given. Assessment Pt demo'd excellent tolerance to all progressions today including re- introduction of forward step ups, lateral band walks, and deeper depth of body squats. No complaints of knee pain reported while in the clinic. Bc is progressing well to progressive CKC loading and demonstrates nearly symmetrical gait mechanics. Cues needed during squats to avoid offloading involved LE during eccentric phase. Remedios is progressing well towards her goals. [...] to achieve TKE with quad set. ?? Retirement Goals: 10 weeks 1. Pt will be [...] as appropriate/tolerated. Eric Mccormack PT , DPT TOP OPERATOR documented in this encounter Plan of Treatment Not on filedocumented as of this encounter Goals Goal Patient Goal Associated Recent Patient-Stated? Author Type Problems Progress Blood Pressure Blood 197/101 Yes Myochsner, < 130/80 Pressure (02/21/2020 System Messag e 10:15 AM DESKTOP OPERATOR) Take at least Blood No Cutura, one BP reading Pressure Precious per week at various times of the day Maintain a low Diet No Cutura, sodium diet Precious Note: [place] Heart Association (AHA) guideli francisco recommend less [...]
--- OUTSIDE RECORDS SUMMARY | 2020-04-15 13:27 | XMS_ITS | Clinical Summary ---
:1975 Author Organization [facility] and It s Subsidiaries and Affiliates Address [address] [place] [address] Care Team Providers Name Role Phone GENTRY Braswell Unavailable Unavailable MD Romario Primary Care Provider gina Moralez II, MD, F. Unavailable Maggy Agustin MD Unavailable Napoleon Loyola MA Unavailable Unavailable Allergies No Known Active Allergies Medications Medication Sig Dispensed Refills Start Date End Date Status hydroCHLOROthiazide Take 1 tablet 30 tablet 0 08/11/201908/10 Active (HYDRODIURIL) 12.5 MG (12.5 mg TabIndications: Essential total) by hypertension mouth once daily. metFORMIN (GLUCOPHAGE-XR) Take 1 tablet 30 tablet 0 08/11/2019 Active 500 MG XR 24hr tablet (500 mg total) by mouth before dinner. Additional Information Patient not taking. Reported on 10/24/2019 flecainide (TAMBOCOR) Take 1 tablet (150 20 tablet 11 0 08/10/2020 Active 150 MG TabIndications: mg total) by mouth Persistent atrial continuous prn. Take fibrillation 2 tablets for atrial fibrillation metoprolol succinate Take 1 tablet (50 mg 30 tablet 5 10/24/19 20 Active (TOPROL-XL) 50 MG 24 hr total) by mouth once tabletIndications: daily. Essential hypertension spironolactone Take 1 tablet (25 mg 30 tablet 5 10/24/2019 Active (ALDACTONE) 25 MG total) by mouth once tabletIndications: daily. Essential hypertension aspirin (ECOTRIN) 81 MG Take 1 tablet (81 mg 28 tablet 0 01/04 Active EC tabletIndications: total) by mouth 2 Old tear of lateral (two) times daily. meniscus of right knee, for 14 days unspecified tear type Active Problems Problem Noted Date Right knee pain 01/09/2020 Gait abnormality 01/09/2020 Decreased range of motion 01/09/2020 Weakness 01/09/2020 Old tear of lateral meniscus of right knee 01/06/2020 Rayna coma scale total score 3-8 11/22/2019 Last Assessment & Plan: [place] coma scale total score 3-8 There are no focal findings on her exami nation suggesting this is metabolic or toxic in nature however would recommend getting an MRI to rule out brainstem insult. Patient will need to be admitted. AMS (altered mental status) 11/21/2019 Stroke 11/21/2019 Last Assessment & Plan: Altered mental status Poison exposure Hypertension CXR unremarkable MRA head with no acute findings, CTA head reported no acute intracranial findings. No abnormal intracranial enhancement. Overall unremarkable CTA head and neck e xamination Echo pending HbA1c Lipid profile permissive hypertension: Keep SBP > 140 Resume home meds- HCT, enalapril, Metopr olol, Spironolactone Hypokalemia 11/21/2019 Last Assessment & Plan: Replace Postoperative infection 01/11/2019 Post op infection 01/11/2019 Prediabetes 11/04/2018 Last Assessment & Plan: Obesity HbA1c 6.4 Low dose SSI Accucheck Diabetic cardiac diet Patient will need to start on Metformin on discharge Morbid obesity 03/26/2018 Last Assessment & Plan: PT/OT Counseling regarding life style changes Essential hypertension 11/27/2016 Last Assessment & Plan: Non complaint with medication Hold Losartan 100 mg dialy ASA Continue with Sotalol A-fib Overview: [id number] score 3 with HTN + DM II + sex Down to 1 without HTN + DM II Last Assessment & Plan: Plavix, ASA, Lipitor, Metoprolol Resolved Problems Problem Noted Date Resolved Date Atrial fibrillation with RVR 03/26/2018 01/26/2019 Last Assessment & Plan: Hx of fib and cardioversion in 2014 Non complaint with medication Continue cardizem drip.d/c'd Lopressor x once continue Sotalol daily Continue ASA Encounters Date Type Specialty Care Team Description 02/21/2020 Office Visit Sports Medicine Rui Lux Surger y follow-up MD examination (Pr imary Dx) 02/08/2020 Clinical Support Outpatient Rehab Triston, Ron Rig ht knee pain, unspecified chronicity; NATALIO Lance Gait abnormality; Eric Mccormack, Decreased range of motion; PT Weakness 02/06/2020 Clinical Support Outpatient Rehab Chandler, Ron Rig ht knee pain, unspecified chronicity; NATALIO Lance Gait abnormality; Eric Mccormack, Decreased range of motion; PT Weakness 01/31/2020 Clinical Support Outpatient Rehab Triston, Ron Rig ht knee pain, unspecified chronicity; NATALIO Lance Gait abnormality; Eric Mccormack, Decreased range of motion; PT Weakness 01/30/2020 Clinical Support Outpatient Rehab Triston, Ron Rig ht knee pain, unspecified chronicity; NATALIO Lance Gait abnormality; Eric Mccormack, Decreased range of motion; PT Weakness 01/25/2020 Clinical Support Outpatient Rehab Chandler, Ron Rig ht knee pain, unspecified chronicity; NATALIO Lance Gait abnormality; Eric Mccormack, Decreased range of motion; PT Weakness 01/23/2020 Clinical Support Outpatient Rehab Chandler, Ron Acu te pain of right knee; NATALIO Lance Gait abnormality; Eric Mccormack, Decreased range of motion; PT Weakness 01/18/2020 Office Visit Sports Medicine Ron Goldstein Old tear of lateral meniscus of right knee, unspecified tear type (Primary Dx); NATALIO Lance Surgery follow- up examination 01/18/2020 Clinical Support Outpatient Rehab Trsiton, Ron Acu te pain of right knee; NATALIO Lance Gait abnormality; Eric Mccormack, Decreased range of motion; PT Weakness 01/16/2020 Clinical Support Outpatient Rehab Chandler, Ron Acu te pain of right knee; NATALIO Lance Gait abnormality; Eric Mccormack, Decreased range of motion; PT Weakness from Last 3 Months Immunizations Name Administration Dates Next Due DTP 09/01/1978, 02/24/1978 Influenza 04/01/2018, 02/02/2011, 12/25/2003 Influenza - Quadrivalent - PF 12/20/2018, 12/14/2017, 2017 *Preferred* (6 months and older) Influenza - Trivalent (ADULT) 02/02/2011 Influenza - Trivalent - PF (ADULT) 01/29/2016 MMR 07/30/2004, 02/24/1978 OPV 10/12/1979, 01/26/1979, 07/07/1978, 04/28/1978, 02/24/1978 Td (ADULT) 07/30/2004, 10/12/1979 Tdap 12/14/2017, 01/29/2016 Family History Medical History Relation Name Comments Lymphoma Brother No Known Problems Daughter Atrial fibrillation Father Coronary artery disease Father Diabetes Father Hypertension Father Coronary artery disease Mother Diabetes Mother Eclampsia Mother Leukemia Mother Throat cancer Mother Atrial fibrillation Sister Diabetes Sister Hypertension Sister Sarcoidosis Sister Hypertension Sister No Known Problems Sister Breast cancer Neg Hx Ovarian cancer Neg Hx Relation Name Status Comments Brother Daughter Alive Father Mother Sister Alive Sister Alive Sister Alive Social History Tobacco Use Types Packs/Day Years [...] or relatives? How often do you attend lutheran or 1 to 4 times per year 10/08 restorationism services? Do you belong to any clubs or No 10/30/2018 organizations such as lutheran groups, unions, fraternal or athletic groups, or [...] Comments Blood Pressure 197/101 02/21/2020 10:15 AM SUPERVISOR PHOTOENGRAVING Pulse 89 02/21/2020 10:15 AM SUPERVISOR PHOTOENGRAVING Temperature 36.8 ??C (98.3 ??F) 01/06/2020 8:45 AM CDT Respiratory Rate 18 01/06/2020 11:49 AM CDT Oxygen Saturation 96% 01/06/2020 10:00 AM CDT Inhaled Oxygen Concentration - - Weight 129.7 kg (286 lb) 02/21/2020 10:15 AM SUPERVISOR PHOTOENGRAVING Height 167.6 cm (5' 6) 02/21/2020 10:15 AM SUPERVISOR PHOTOENGRAVING Body Mass Index 46.16 02/21/2020 10:15 AM SUPERVISOR PHOTOENGRAVING Plan of Treatment Health Maintenance Due Date Last Done Comments Hepatitis C Screening 1975 HIV Screening 1988 Mammogram 07/27/2020 07/28/2019, 04/06/2018, 04/06/19 19, Additional history exists Pap Smear with HPV Cotest 11/04/2023 11/03/2018, 04/10/2014 , 12/13/2012 Lipid Panel 11/20/2024 11/21/2019, 10/24/2019, 02/05/20 17, Additional history exists TETANUS VACCINE 12/15/2027 12/14/2017, 01/29/2016, 07/31/19 05, Additional history exists Influenza Vaccine Completed 12/28/2019, 12/20/2018, 2018, Additional history exists Goals Goal Patient Goal Associated Recent Patient-Stated? Author Type Problems Progress Blood Pressure Blood 197/101 Yes Myochsner, < 130/80 Pressure (02/21/2020 System Messag e 10:15 AM SUPERVISOR PHOTOENGRAVING) Take at least Blood No Cutura, one BP reading Pressure Precious per week at various times of the day Maintain a low Diet No Cutura, sodium diet Precious Note: [place] Heart Association (AHA) guideli francisco recommend less than 2000mg of dietary salt per day. Reduce portion size Diet No Cutur a, Precious DIET - Meal Planning Diet No Cutu ra Precious Note: Your goal is to incorporate meal plannin g in your daily routine. Reduce portions Diet No Cutura, C hristina Meal plan Diet No Cutura, Marco A noah Exercise at least 150 minutes per week. Exercise No Cutura, Precious Note: Your goal is to increase exercise routin e and start Spin Classes next week. 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
--- OUTSIDE RECORDS SUMMARY | 2020-04-15 13:27 | XMS_ITS | Encounter Summary ---
:1975 Author Organization [facility] Health Address [address] [place] [address] Care Team Providers Name Role Phone Unavailable Primary Care Provider Unavailable Reason for Referral Diagnostic X-Ray (Routine) Status Reason Specialty Diagnoses / Referred By Referred To Procedures Contact Contact Closed Specialty Radiology Diagnoses Encounter for annual health examination Terry B320 Obgyn Services Required Procedures Mammogram Screening Bilateral [address] [facility] [address] [place] [address] Encounter Details Date Type Department Care Team Description 12/10/2017 Orders Only [place] Vaishali Stanton MA Encounter for annual [facility] health examination [address] [facility] [address] [place] [phone] Social History Tobacco Use Types Packs/Day Years Used Date Never Smoker Smokeless Tobacco: Never Used Alcohol Use Drinks/Week oz/Week Comments No Sex Assigned at Date Recorded Not on file documented as of this encounter Plan of Treatment Not on filedocumented as of this encounter Results [facility] MA MAMMOGRAM SCREENING BILATERAL (04/06/2018 7:56 AM HAND UMBRELLA TIPPER) Specimen Impressions Performed At NO MAMMOGRAPHIC EVIDENCE FOR BREAST MALIGNANCY WITH AP [facility] PACS UNCHANGED SINCE PRIOR EXAMINATION. UNLESS OTHERWISE [...] By: Vaughn Tomas MD 04/06/2018 10:11 AM HAND UMBRELLA TIPPER Narrative Performed At SCREENING DIGITAL MAMMOGRAM WITH CAD: ?? G0202, [id number] [facility] PACS REASON FOR EXAMINATION: ??Screening. RISK FACTORS: [...] Results In - 04/06/2018 10:13 A M HAND UMBRELLA TIPPER SCREENING DIGITAL MAMMOGRAM WITH CAD: G0202, [id number] REASON FOR EXAMINATION: Screening. RISK FACTORS: No [...] By: Vaughn Tomas MD 04/06/2018 10:11 AM HAND UMBRELLA TIPPER Performing Organization Address City/State/Zipcode Phone Number [facility] PACS documented in this encounter Visit Diagnoses Diagnosis Encounter for annual health examination Routine general medical examination at a health care facility documented in this encounter Additional Source Comments [facility] is releasing the current information available at the time of this request. [facility]
--- OUTSIDE RECORDS SUMMARY | 2020-04-15 13:27 | XMS_ITS | Encounter Summary ---
:1975 Author Organization [facility] Address [address] [place] [address] Care Team Providers Name Role Phone Unavailable Primary Care Provider Unavailable Encounter Details Date Type Department Care Team Description 12/28/2017 Telephone [facility], Taj Mead II, Lilian. [address] [facility] Sascha [address] [address] [address] [place], [place] [phone] [place], [place] [id number] Social History Tobacco Use Types Packs/Day Years Used Date Never Smoker Smokeless Tobacco: Never Used Alcohol Use Drinks/Week oz/Week Comments No Sex Assigned at Date Recorded Not on file documented as of this encounter Plan of Treatment Not on filedocumented as of this encounter Visit Diagnoses Not on filedocumented in this encounter Additional Source Comments [facility] is releasing the current information available at the time of this request. [facility]
--- OUTSIDE RECORDS SUMMARY | 2020-04-15 13:28 | XMS_ITS | Encounter Summary ---
:1975 Author Organization [facility] and It [facility] Subsidiaries and Affiliates Address [address] [place] [address] Care Team Providers Name Role Phone GENTRY [...] Outpatient PA-C Services - [facility]hab [address] [facility] [address] [place], [place] [address] [place], Phone: [place] [phone] Phone: Encounter Details Date Type Department Care Team Description 01/16/2020 Clinical Support Brit Gallo - Devendra Goldstein, PA-C [address] [place] [address] Acute pain of right knee; Rehab 1st Fl Eric Mccormack, PT Gait abnormality; [address] Decreased r laverne of motion; [place] [phone] Social History Tobacco Use Types [...] or relatives? How often do you attend worship or 1 to 4 times per year 10/08 confucianist services? Do you belong to any clubs or No 10/30/2018 organizations such as worship groups, unions, fraternal or athletic groups, or [...] encounter Progress Notes Eric Mccormack, PT - 01/16/2020 10:00 AM CST Physical Therapy Daily Treatment Note Name: [facility] Number: [id number] Therapy Diagnosis: Encounter Diagnoses Name Primary? Acute pain of right knee ??? Gait abnormality ??? Decreased range of motion ??? Weakness Physician: Ron Goldstein PA* Visit Date: 01/16/2020 Physician Orders: PT Eval and Treat Medical Diagnosis from Referral: M23.200 (ICD-10-CM) - Old tear of lateral meniscus of right knee, unspecified tear type Evaluation Date: 01/09/2020 Authorization Period Expiration: 03/08/2020 Plan of Care Expiration: 03/08/2020 Visit # / Visits authorized: Time In: 1004 Time Out: 1103 Total Billable Time: 56 minutes Precautions: Standard Subjective Pt reports: Her knee is feeling better with decreased pain and standing from a chair has gotten mucheasier. She is focusing in walking heel-toe and is getting more comfortable with weight bearing on the right LE. She was compliant with home exercise program. Response to previous treatment: Improved knee extension Functional change: Improved ability to safely ambulate with axillary crutches. Pain: 05/16 Location: Site of incision portals. Objective Daily Measurements: Observation: Incision sites are covered with waterproof bandage with no visible signs of infection in the region. Pat presented to PT today wearing EDISON hose. Gait: Ambulates with axillary crutches x2. Self-selects NWB on involved LE. ?? Knee Active Range of Motion: ?? Right Left Flexion 90 125 Extension 0 -5 ?? Knee Passive Range of Motion: ?? Right Left Flexion 105 125 Extension -5 -5 ?? Daily Treatment Remedios received therapeutic exercises to develop strength, endurance, ROM and flexibility for 33 minutes including: Rec [place] x5 mins to improve mobility and tolerance to ADL's/IADL related activity. Knee Ext LLLD Heel Prop w/10# overproessure x5 mins Quad Sets w/ Heel Prop 3x15 OKC Knee Ext w/assist w/wedge 4x5 Supine Bridges 3x10 Remedios received the following manual therapy techniques: were applied to the: R Knee for 5 minutes, including: Fat pad and patellar mobility assessment ROM check Remedios participated in dynamic functional therapeutic activities to improve functional performance for 00 minutes, including: Remedios participated in neuromuscular re-education activities to improve: Balance, Coordination, Kinesthetic, Sense, Proprioception and timing/activation for 24 minutes. The following activities were included: Standing Weight Shifts w/quad/glute activation 5x30 Part/Whole practice gait mechanics with axillary crutches for knee flexion and MTP extension at TSt and PSw x5 mins Standing TKE w/TB tactile cue 2x10 Home Exercises and Patient Education Provided Education provided: - Weight bearing tolerance, tissue healing timelines, importance of regaining TKE and quad control and restoring normal gait mechanics. Written Home Exercises Provided: Patient instructed to cont prior HEP. Exercises were reviewed and Remedios was able to demonstrate them prior to the end of the session. Remedios demonstrated good understanding of the education provided. See EMR under patient instructions for exercises given. Assessment Pt continues to respond well to PT treatment. She demo's continued improvement in knee flx/ext ROM and achieved -5 TKE w/ LLLD heel prop with today's treatment. Volitional quad activation with quad setcontinues to be challenging, but improved with repetition and PT cues today. Improved quad activation with CKC weight shifting and TKE. Patient demonstrated improved gait mechanics at the conclusion oftoday's treatment. Remedios is progressing well towards her [...] to achieve TKE with quad set. ?? Senior Care Goals: 10 weeks 1. Pt will be [...] related to R knee pain. Plan Continue with weight bearing progression as tolerated and with emphasis on regaining quad control/strength. Progress WB as appropriate. Eric Mccormack PT , DPT STANT TECHNICIAN documented in this encounter Plan of Treatment Not on filedocumented as of this encounter Goals Goal Patient Goal Associated Recent Patient-Stated? Author Type Problems Progress Blood Pressure Blood 197/101 Yes Myochsner, < 130/80 Pressure (02/21/2020 System Messag e 10:15 AM ASSISTANT TECHNICIAN) Take at least Blood No Cutura, one BP reading Pressure Precious per week at various times of the day Maintain a low Diet No Cutura, sodium diet Precious Note: [place] [employer] (AHA) guideli francisco recommend less [...] least 150 minutes per week. Exercise No Katie Precious Note: Your goal is to increase exercise routin e and start Spin Classes next week. documented as of this encounter Visit Diagnoses Diagnosis Acute pain of right knee Gait abnormality Abnormality of gait Decreased range of motion Weakness Other malaise and fatigue documented in this encounter
--- OUTSIDE RECORDS SUMMARY | 2020-04-15 13:28 | XMS_ITS | Encounter Summary ---
:1975 Author Organization [facility] and It [facility] Subsidiaries and Affiliates Address [address] [place] [address] Care Team Providers Name Role Phone GENTRY [...] Outpatient PA-C Services - 1st Rehab [address] [facility] [address], [place] [address] [place], Phone: [place] [phone] Phone: Encounter Details Date Type Department Care Team Description 01/18/2020 Clinical Support Brit Gallo - Devendra Goldstein, PA-C [address] [place] [address] Acute pain of right knee; Rehab 1st Fl Eric Mccormack, PT Gait abnormality; [address] Decreased r laverne of motion; [place] [address] Social History Tobacco Use Types [...] or relatives? How often do you attend yarsani or 1 to 4 times per year 10/08 latter day services? Do you belong to any clubs or No 10/30/2018 organizations such as yarsani groups, unions, fraternal or athletic groups, or [...] encounter Progress Notes Eric Mccormack, PT - 01/18/2020 8:30 AM CST Physical Therapy Daily Treatment Note Name: [facility] Number: [id number] Therapy Diagnosis: Encounter Diagnoses Name Primary? Acute pain of right knee ??? Gait abnormality ??? Decreased range of motion ??? Weakness Physician: Ron Goldstein PA* Visit Date: 01/18/2020 Physician Orders: PT Eval and Treat Medical Diagnosis from Referral: M23.200 (ICD-10-CM) - Old tear of lateral meniscus of right knee, unspecified tear type Evaluation Date: 01/09/2020 Authorization Period Expiration: 03/08/2020 Plan of Care Expiration: 03/08/2020 Visit # / Visits authorized: Time In: 822 Time Out: 921 Total Billable Time: 55 minutes Precautions: Standard Subjective Pt reports: She had some moderate muscle soreness for about 24 hours after her last PT appoint, but this has since dissipated. She can tell she is much more confident with walking and weight bearing onher involved LE. She was compliant with home exercise [...] hose. Gait: Ambulates with axillary crutches x2. PWB with heel strike at IC, improved knee flexion and MTPext at TSt and PSw ?? Knee Active Range of Motion: ?? Right Left Flexion 100 125 Extension 0 -5 ?? Knee Passive Range of Motion: ?? Right Left Flexion 110 125 Extension -5 -5 ?? Daily Treatment Remedios received therapeutic exercises to develop strength, endurance, ROM and flexibility for 24 minutes including: Rec [place] x6 mins to improve mobility and tolerance to ADL's/IADL related activity. Quad set w/Active Assist SLR 4x5 Supine BTB Unilateral Clams 3x12 Remedios received the following manual therapy techniques: were applied to the: R Knee for 5 minutes, including: Fat pad and patellar mobility assessment ROM check Remedios participated in dynamic functional therapeutic activities to improve functional performance for 00 minutes, including: Remedios participated in neuromuscular re-education activities to improve: Balance, Coordination, Kinesthetic, Sense, Proprioception and timing/activation for 28 minutes. The following activities were included: NMES w/quad set 10:10 x8 mins Standing Weight Shifts w/quad/glute activation 5x30 Standing TKE w/TB tactile cue 2x10 Home Exercises and Patient Education Provided Education provided: - Weight bearing tolerance, tissue healing timelines, importance of regaining TKE and quad control and restoring normal gait mechanics. - Appropriate timelines for muscle soreness indicating adequate stimulus for adaptation. Written Home Exercises Provided: Patient instructed to cont prior HEP. Exercises were reviewed and Remedios was able to demonstrate them prior to the end of the session. Remedios demonstrated good understanding of the education provided. See EMR under patient instructions for exercises given. Assessment Pt demo'd improved gait mechanics ambulating into the clinic with her axillary crutches. Also demo'dimproved volitional quad control with quad set following NMES with quad set and SLR requiring minimal assist to avoid extensor lag. Unable to achieve adequate quad control with attempted marches. Continued with weight shifts and TKE w/tactile cues. Remedios is progressing well towards her goals. [...] to achieve TKE with quad set. ?? Technical Customer Support Specialist Goals: 10 weeks 1. Pt will be [...] regaining quad control/strength. Progress WB as appropriate. Progress to marching/squatting if patient demo's adequate quad control next visit. Assess for appropriateness for shuttle. Eric Mccormack PT , DPT PREPARATION SUPERVISOR documented in this encounter Plan of Treatment Not on filedocumented as of this encounter Goals Goal Patient Goal Associated Recent Patient-Stated? Author Type Problems Progress Blood Pressure Blood 197/101 Yes Myochsner, < 130/80 Pressure (02/21/2020 System Messag e 10:15 AM WOOD PREPARATION SUPERVISOR) Take at least Blood No Cutura, one BP reading Pressure Precious per week at various times of the day Maintain a low Diet No Cutura, sodium diet Precious Note: [place] [employer] (AHA) guideli francisco recommend less [...]
--- OUTSIDE RECORDS SUMMARY | 2020-04-15 13:28 | XMS_ITS | Encounter Summary ---
:1975 Author Organization [facility] and It s Subsidiaries and Affiliates Address [address] [place] [address] Care Team Providers Name Role Phone GENTRY Braswell Unavailable Unavailable MD Romario Primary Care Provider gina Moralez II, MD, F. Unavailable Maggy Agustin MD Unavailable Napoleon Loyola MA Unavailable Unavailable Reason for Visit Auth/Cert Status Reason Specialty Diagnoses / Procedures Referred By C ontact Referred To Contact Surgery Diagnoses Old tear of lateral meniscus of right knee, unspecified tear type Old tear of lateral meniscus of right knee, unspecified tear type [M23.200] Rui Ferrera Elmh Periop Procedures [place] KNEE SCOPE SINGLE MENISECECTOMY ARTHROSCOPY, KNEE, WITH MENISCECTOMY Services [address] [facility], [place], operated by [facility] [address] [id number] [place], [place] Phone: [phone] Phone: Encounter Details Date Type Department Care Team Description 01/06/2020 Hospital Encounter [facility] Rui Ferrera Old tear of lateral Center - Brit JOSEPH meniscus of right [address] knee, unspecified [facility] tear type [facility] [id number] [address] [place] [address] [phone] Social History Tobacco Use Types Packs/Day Years [...] or relatives? How often do you attend yazidi or 1 to 4 times per year 10/08 cheondoism services? Do you belong to any clubs or No 10/30/2018 organizations such as yazidi groups, unions, fraternal or athletic groups, or [...] Sign Reading Time Taken Comments Blood Pressure 182/86 01/06/2020 10:00 AM CDT Pulse 68 01/06/2020 10:00 AM CDT Temperature 36.8 ??C (98.3 ??F) 01/06/2020 8:45 AM CDT Respiratory Rate 18 01/06/2020 11:49 AM CDT Oxygen Saturation 96% 01/06/2020 10:00 AM CDT Inhaled Oxygen Concentration - - Weight 123.8 kg (273 lb) 01/06/2020 6:03 AM CDT Height 167.6 cm (5' 6) 01/06/2020 6:03 AM CDT Body Mass Index 44.06 01/06/2020 6:03 AM CDT documented in this encounter Discharge Instructions Keyla Victoria RN - 01/06/2020 POLAR CARE CUBE COLD THERAPY SYSTEM The Polar Care Cube Cold Therapy System is simple and reliable. It is easy to use, compact design makes it great for home use. With the addition of ice and water, you will enjoy 6-8 hours of effortlesscold therapy. Proper use requires an insulation barrier between the pad and the patient's skin. Instructions on how to use the Polar Care Cube Cold Therapy System Below: Recovery After Procedural Sedation (Adult) You have been given medicine by vein to make you sleep during your surgery. This may have included both a pain medicine and sleeping medicine. Most of the effects have worn off. But you may still have some drowsiness for the next 6 to 8 hours. Home care Follow these guidelines when you get home: ?? For the next 8 hours, you should be watched by a responsible adult. This person should make sure your condition is not getting worse. ?? Don't drink any alcohol for the next 24 hours. ?? Don't drive, operate dangerous machinery, or make important business or personal decisions duringthe next 24 hours. Note: Your healthcare provider may tell you not to take any medicine by mouth for pain or sleep in the next 4 hours. These medicines may react with the medicines you were given in the hospital. This could cause a much stronger response than usual. Follow-up care Follow up with your healthcare provider if you are not alert and back to your usual level of activity within 12 hours. When to seek medical advice Call your healthcare provider right away if any of these occur: ?? Drowsiness gets worse ?? Weakness or dizziness gets worse ?? Repeated vomiting ?? You can't be awakened Date Last Reviewed: 12/25/2015 ?? [id number] [employer]. [address] [place], [place] [id number]. All rights reserved. This information is not intended as a substitute for professional medical care. Always follow your healthcare professional's instructions. Discharge Instructions: After Your Surgery You've just had surgery. During surgery, you were given medicine called anesthesia to keep you relaxed and free of pain. After surgery, you may have some pain or nausea. This is common. Here are some tips for feeling better and getting well after surgery. Stay on schedule with your medicine. Going home Your healthcare provider will show you how to take care of yourself when you go home. He or she willalso answer your questions. Have an adult family member or friend drive you home. For the first 24 hours after your surgery: ?? Have someone stay with you, if needed. He or she can watch for problems and help keep you safe. Be sure to go to all follow-up visits with your healthcare provider. And rest after your surgery foras long as your healthcare provider tells you to. Coping with pain If you have pain after surgery, pain medicine will help you feel better. Take it as told, before pain becomes severe. Also, ask your healthcare provider or pharmacist about other ways to control pain. This might be with heat, ice, or relaxation. And follow any other instructions your surgeon or nurse gives you. Tips for taking pain medicine To get the best relief possible, remember these points: ?? Pain medicines can upset your stomach. Taking them with a little food may help. ?? Most pain relievers taken by mouth need at least 20 to 30 minutes to start to work. ?? Taking medicine on a schedule can help you remember to take it. Try to time your medicine so thatyou can take it before starting an activity. This might be before you get dressed, go for a walk, orsit down for dinner. ?? Constipation is a common side effect of pain medicines. Call your healthcare provider before taking any medicines such as laxatives or stool softeners to help ease constipation. Also ask if you should skip any foods. Drinking lots of fluids and eating foods such as fruits and vegetables that are high in fiber can also help. Remember, do not take laxatives unless your surgeon has prescribed them. Your healthcare provider may tell you to take acetaminophen to help ease your pain. Ask him or her how much you are supposed to take each day. Acetaminophen or other pain relievers may interact with your prescription medicines or other wbix-kxe-jbrskxh (OTC) medicines. Some prescription medicines haveacetaminophen and other ingredients. Using both prescription and OTC acetaminophen for pain can cause you to overdose. Read the labels on your OTC medicines with care. This will help you to clearly know the list of ingredients, how much to take, and any warnings. It may also help you not take too muchacetaminophen. If you have questions or do not understand the information, ask your pharmacist or [facility] provider to explain it to you before you take the OTC medicine. Managing nausea Some people have an upset stomach after surgery. This is often because of anesthesia, pain, or pain medicine, or the stress of surgery. These tips will help you handle nausea and eat healthy foods as you get better. If you were on a special food plan before surgery, ask your healthcare provider if youshould follow it while you get better. These tips may help: ?? Do not push yourself to eat. Your body will tell you when to eat and how much. ?? Start off with clear liquids and soup. They are easier to digest. ?? Next try semi-solid foods, such as mashed potatoes, applesauce, and gelatin, as you feel ready. ?? Slowly move to solid foods. Don't eat fatty, rich, or spicy foods at first. ?? Do not force yourself to have 3 large meals a day. Instead eat smaller amounts more often. ?? Take pain medicines with a small amount of solid food, such as crackers or toast, to avoid nausea. Call your surgeon if? You still have pain an hour after taking medicine. The medicine may not be strong enough. ?? You feel too sleepy, dizzy, or groggy. The medicine may be too strong. ?? You have side effects like nausea, vomiting, or skin changes, such as rash, itching, or hives. If you have obstructive sleep apnea You were given anesthesia medicine during surgery to keep you comfortable and free of pain. After surgery, you may have more apnea spells because of this medicine and other medicines you were given. The spells may last longer than usual. At home: ?? Keep using the continuous positive airway pressure (CPAP) device when you sleep. Unless your healthcare provider tells you not to, use it when you sleep, day or night. CPAP is a common device used to treat obstructive sleep apnea. ?? Talk with your provider before taking any pain medicine, muscle relaxants, or sedatives. Your provider will tell you about the possible dangers of taking these medicines. Date Last Reviewed: 02/07/2016 ?? [id number] [employer]. [address] [place] [address]. All rights reserved. This information is not intended as a substitute for professional medical care. Always follow your healthcare professional's instructions. PATIENT INSTRUCTIONS POST-ANESTHESIA IMMEDIATELY FOLLOWING SURGERY: Do not drive or operate machinery for the first twenty four hours after surgery. Do not make any important decisions for twenty four hours after surgery or while takingnarcotic pain medications or sedatives. If you develop intractable nausea and vomiting or a severe headache please notify your doctor immediately. FOLLOW-UP: Please make an appointment with your surgeon as instructed. You do not need to follow upwith anesthesia unless specifically instructed to do so. WOUND CARE INSTRUCTIONS (if applicable): Keep a dry clean dressing on the anesthesia/puncture woundsite if there is drainage. Once the wound has quit draining you may leave it open to air. Generally you should leave the bandage intact for twenty four hours unless there is drainage. If the epidural site drains for more than 36-48 hours please call the anesthesia department. QUESTIONS?: Please feel free to call your physician or the hospital yarding and folding machine operator if you have any questions, and they will be happy to assist you. [facility] Anesthesia Department [address] [facility] [phone] Wound Check After Surgery: Bleeding Surgery involves cutting through layers of skin, fatty tissue, muscle, and sometimes bone and cartilage. Sutures (stitches) or fatmata are used to close all layers of the wound. The sutures on the inside will dissolve in about 2 to 3 weeks. Any sutures or fatmata used on the outside need to be removedin about 7 to 14 days, depending on the location. It is normal to have some clear or bloody discharge on the wound covering or bandage (dressing) for the first few days after surgery. If your wound was sutured (sewn) closed, you should not have to change the dressing more than three times a day in the first few days. Bleeding or discharge requiring more frequent dressing changes can be a sign of a problem. Home care Different types of surgery require different types of care and dressing changes. It is important to follow all instructions and advice from your surgeon, as well as other members of your healthcare team. Wound care ?? Keep the wound clean, as directed by your healthcare provider. ?? Change the dressing as directed. Change the dressing sooner if it becomes wet or stained with blood or fluid from the wound. ?? Bathe with a sponge (no shower or tub baths) for the first few days after surgery, or until thereis no more drainage from the wound. Unless you received different instructions from your surgeon, you can then shower. Do not soak the area in water (no baths or swimming) until the tape, sutures, or fatmata are removed and any wound opening has dried out and healed. Changing the dressing ?? Wash your hands before changing the dressings. ?? Carefully remove the dressing and tape; don't just yank it off. If it sticks to the wound, you may need to wet it a little to remove it, unless your healthcare provider told you not to wet it. ?? Wash your hands again before putting on a new, clean dressing. ?? Gently clean the wound with clean water (or saline) using gauze or a clean washcloth. Do not rub it or pick at it. ?? Do not use soap, alcohol, hydrogen peroxide, or any other cleanser. ?? If you were told to dry the wound before putting on a new dressing, gently pat it dry. Do not rub. ?? Throw out the old dressing. Do not reuse it! ?? Wash your hands again when you are done. Types of dressings Your healthcare team will tell you what type of dressing to put on your wound. Follow your healthcare team's instructions carefully, and contact them if you have any questions. Two common types of dressings are described below. You may have one of these or another type. ?? Dry dressing. Use dry gauze. If the wound is still draining, use a ???nonadherent?? dressing, which shouldn't stick to the wound. ?? Wet-to-dry dressing. Wet the gauze, and squeeze out the excess water (or saline), before putting it on. Then, cover this with a dry pad. Medicines ?? If you were given antibiotics, take them until they are used up or your healthcare provider tellsyou to stop. It is important to finish the antibiotics even though you feel better, to make sure theinfection has cleared. ?? You can take acetaminophen or ibuprofen for pain, unless you were given a different pain medicineto use. (Note: If you have chronic liver or kidney disease, or have ever had a stomach ulcer or gastrointestinal bleeding, or are taking blood thinner medicines, talk with your healthcare provider before using these medicines.) ?? Aspirin should never be used in anyone under 18 years of age who is ill with a fever. It may cause severe liver damage. Follow-up care Follow up with your healthcare provider, or as advised, for your next wound check or removal of sutures, fatmata, or tape. ?? If a culture was done, you will be notified if the results will affect your treatment. You can call as directed for the results. ?? If imaging tests, such as X-rays, an ultrasound, or CT scan were done, they will be reviewed by aspecialist. You will be notified of the results, especially if they affect treatment. Call 911 Call emergency services right away if any of these occur: ?? Trouble breathing or swallowing, wheezing ?? Hoarse voice or trouble speaking ?? Extreme confusion ?? Extreme drowsiness or trouble awakening ?? Fainting or loss of consciousness ?? Rapid heart rate or very slow heart rate ?? Vomiting blood, or large amounts of blood in stool ?? Discomfort in the center of the chest that feels like pressure, squeezing, a sense of fullness, or pain ?? Discomfort or pain in other upper body areas, such as the back, one or both arms, neck, jaw, or stomach ?? Stroke symptoms (spot a stroke ???FAST?? ) ?? F: Face drooping. One side of the face is numb or droops. ?? A: Arm weakness. One arm feels weak or numb. ?? S: Speech difficulty: Speech is slurred, or the person is unable to speak. ?? T: Time to call 911. Even if symptoms go away, call 911. When to seek medical advice Call your healthcare provider right away if any of the following occur: ?? Fluid or blood soaking 5 or more bandages a day during the first 3 days after surgery ?? Fluid or blood still draining from the wound more than 3 days after surgery ?? Increasing pain at the site of surgery ?? Fever over 100.4?? F (38.0?? C) ?? Redness around the wound ?? Pus coming from the wound ?? Vomiting, constipation, or diarrhea Date Last Reviewed: 12/03/2014 ?? [employer]. [address] [place] [address]. All rights reserved. This information is not intended as a substitute for professional medical care. Always follow your healthcare professional's instructions. Wound Check After Surgery, No Complication It is normal to feel pain at the incision site. The pain decreases as the wound heals. Most of the pain and soreness from the skin incision should go away by the time the sutures or fatmata are removed. Soreness and pain from deeper tissues may last another week or two. Pain that continues more than a few weeks after surgery or pain that worsens anytime after surgery can be a sign of a problem, such as: ?? Infection ?? Separation of wound edges ?? Collection of blood or other below the skin Date Last Reviewed: 12/03/2014 ?? [employer]. [address] [place] [address]. All rights reserved. This information is not intended as a substitute for professional medical care. Always follow your healthcare professional's instructions. documented in this encounter Medications at Time of Discharge Medication Sig Dispensed Refills Start Date End Date aspirin (ECOTRIN) 81 MG EC Take 1 tablet (81 28 tablet 0 10 / tabletIndications: Old mg total) by mouth tear of lateral meniscus 2 (two) times of right knee, unspecified daily. for 14 days tear type flecainide (TAMBOCOR) 150 Take 1 tablet (150 20 tablet 11 08/10/2020 MG TabIndications: mg total) by mouth Persistent atrial continuous prn. fibrillation Take 2 tablets for atrial fibrillation hydroCHLOROthiazide Take 1 tablet (12.5 30 tablet 0 020 08/10/2020 (HYDRODIURIL) 12.5 MG mg total) by mouth TabIndications: Essential once daily. hypertension metoprolol succinate Take 1 tablet (50 30 tablet 5 10/24/19 20 (TOPROL-XL) 50 MG 24 hr mg total) by mouth tabletIndications: once daily. Essential hypertension spironolactone (ALDACTONE) Take 1 tablet (25 30 tablet 5 10/23/2020 25 MG tabletIndications: mg total) by mouth Essential hypertension once daily. ondansetron (ZOFRAN) 4 MG Take 1 tablet (4 mg 21 tablet 0 1 01/13/2020 tabletIndications: Old total) by mouth tear of lateral meniscus every 8 (eight) of right knee, unspecified hours as needed. tear type oxyCODONE (ROXICODONE) 5 Take 1 tablet (5 mg 28 tablet 0 01/13/2020 MG immediate release total) by mouth tabletIndications: Old every 6 (six) hours tear of lateral meniscus as needed. of right knee, unspecified tear type documented as of this encounter Progress Notes Ramirez Peacock RN - 01/06/2020 6:[address] Dodd regarding pt's order for Celebrex 400mg. Pt has no recent labs. Per Dr. Dodd, ok for pt to take ordered dose. Informed Dr. Dodd of pt's bp 176/79. No new orders given. Will continue to monitor. documented in this encounter H&P Notes Ron Goldstein PA-C - 01/06/2020 6:35 AM CDT The patient has been examined and the H&P has been reviewed: I concur with the findings and no changes have occurred since H&P was written. Surgery risks, benefits and alternative options discussed and understood by patient/family. Active Hospital Problems Diagnosis POA ??? Old tear of lateral meniscus of right knee [M23.200] Yes Resolved Hospital Problems No resolved problems to display. Ron Kramer PA-C - 12/27/2019 3:00 PM CDT Remedios Schofield is here for a completion of her perioperative paperwork. she Is scheduled to undergo right knee arthroscopy with lateral meniscectomy versus possible repair on 01/06/2020. She is a healthy individual and does need clearance for this procedure. Cardiac clearance: She can proceed with her non-cardiac surgery with acceptable risks Risks, indications and benefits of the surgical procedure were discussed with the patient. All questions with regard to surgery, rehab, expected return to functional activities, activities of daily living and recreational endeavors were answered to her satisfaction. Discussed COVID-19 with the patient, they are aware of our current policies and procedures, were given the option of delaying surgery, and they elect to proceed. Patient was informed and understands the risks of surgery are greater for patients with a current condition or hx of heart disease, obesity, clotting disorders, recurrent infections, steroid use, current or past smoking, and factors such as sedentary lifestyle and noncompliance with medications, therapy or f/u. The degree of the increased risk is hard to estimate w/ any degree of precision. Once no other questions were asked, a brief history and physical exam was then performed. PAST MEDICAL HISTORY: Past Medical History: Diagnosis Date ??? A-fib ??? Atrial fibrillation 1982 ??? Atrial fibrillation ??? Bronchitis ??? Fibroid, uterine ??? Hypertension PAST SURGICAL HISTORY: Past Surgical History: Procedure Laterality Date ??? HYSTERECTOMY 12/31/2018 ??? MYOMECTOMY 2015 fibroids FAMILY HISTORY: Family History Problem Relation Age of Onset ??? Diabetes Father ??? Atrial fibrillation Father ??? Hypertension Father ??? Coronary artery disease Father ??? Eclampsia Mother ??? Diabetes Mother ??? Coronary artery disease Mother ??? Leukemia Mother ??? Throat cancer Mother ??? Diabetes Sister ??? Hypertension Sister ??? Sarcoidosis Sister ??? Atrial fibrillation Sister ??? No Known Problems Daughter ??? Hypertension Sister ??? No Known Problems Sister ??? Lymphoma Brother ??? Breast cancer Neg Hx ??? Ovarian cancer Neg Hx SOCIAL HISTORY: Social History Socioeconomic History ??? Marital status: Spouse name: Not on file ??? Number of children: Not on file ??? Years of education: Not on file ??? Highest education level: Not on file Occupational History ??? Not on file Social Needs ??? Financial resource strain: Not very hard ??? Food insecurity Worry: Never true Inability: Never true ??? Transportation needs Medical: No Non-medical: No Tobacco Use ??? Smoking status: Never Smoker ??? Smokeless tobacco: Never Used Substance and Sexual Activity ??? Alcohol use: Yes Frequency: 2-3 times a week Drinks per session: 1 or 2 Binge frequency: Never Comment: weekends ??? Drug use: No ??? Sexual activity: Not Currently Partners: Male control/protection: None, See Surgical Hx Lifestyle ??? Physical activity Days per week: 3 days Minutes per session: 60 min ??? Stress: To some extent Relationships ??? Social connections Talks on phone: More than three times a week Gets together: Twice a week Attends cheondoism service: 1 to 4 times per year Active member of club or organization: No Attends meetings of clubs or organizations: Never Relationship status: Other Topics Concern ??? Not on file Social History Narrative Merged History Encounter MEDICATIONS: Current Outpatient Medications: ??? aspirin (ECOTRIN) 81 MG EC tablet, Take 81 mg by mouth., Disp: , Rfl: ??? aspirin (ECOTRIN) 81 MG EC tablet, Take 1 tablet (81 mg total) by mouth 2 (two) times daily. for 14 days, Disp: 28 tablet, Rfl: 0 ??? flecainide (TAMBOCOR) 150 MG Tab, Take 1 tablet (150 mg total) by mouth continuous prn. Take 2 tablets for atrial fibrillation, Disp: 20 tablet, Rfl: 11 ??? hydroCHLOROthiazide (HYDRODIURIL) 12.5 MG Tab, Take 1 tablet (12.5 mg total) by mouth once daily., Disp: 30 tablet, Rfl: 0 ??? metFORMIN (GLUCOPHAGE-XR) 500 MG XR 24hr tablet, Take 1 tablet (500 mg total) by mouth before dinner. (Patient not taking: Reported on 10/24/2019), Disp: 30 tablet, Rfl: 0 ??? metoprolol succinate (TOPROL-XL) 50 MG 24 hr tablet, Take 1 tablet (50 mg total) by mouth once daily., Disp: 30 tablet, Rfl: 5 ??? naproxen (NAPROSYN) 500 MG tablet, Take 1 tablet (500 mg total) by mouth 2 (two) times daily with meals. (Patient not taking: Reported on 01/19/2019), Disp: 14 tablet, Rfl: 0 ??? ondansetron (ZOFRAN) 4 MG tablet, Take 1 tablet (4 mg total) by mouth every 8 (eight) hours as needed., Disp: 21 tablet, Rfl: 0 ??? ondansetron (ZOFRAN-ODT) 4 MG TbDL, Take 1 tablet (4 mg total) by mouth every 8 (eight) hours as needed (n/v)., Disp: 10 tablet, Rfl: 0 ??? oxyCODONE (ROXICODONE) 5 MG immediate release tablet, Take 1 tablet (5 mg total) by mouth every6 (six) hours as needed., Disp: 28 tablet, Rfl: 0 ??? oxyCODONE-acetaminophen (PERCOCET) 10-325 mg per tablet, Take 1 tablet by mouth every 6 (six) hours as needed. (Patient not taking: Reported on 03/18/2019), Disp: 20 tablet, Rfl: 0 ??? spironolactone (ALDACTONE) 25 MG tablet, Take 1 tablet (25 mg total) by mouth once daily., Disp: 30 tablet, Rfl: 5 ALLERGIES: Review of patient's allergies indicates: No Known Allergies Review of Systems Constitution: Negative. Negative for chills, fever and night sweats. HENT: Negative for congestion and headaches. Eyes: Negative for blurred vision, left vision loss and right vision loss. Cardiovascular: Negative for chest pain and syncope. Respiratory: Negative for cough and shortness of breath. Endocrine: Negative for polydipsia, polyphagia and polyuria. Hematologic/Lymphatic: Negative for bleeding problem. Does not bruise/bleed easily. Skin: Negative for dry skin, itching and rash. Musculoskeletal: Negative for falls and muscle weakness. Gastrointestinal: Negative for abdominal pain and bowel incontinence. Genitourinary: Negative for bladder incontinence and nocturia. Neurological: Negative for disturbances in coordination, loss of balance and seizures. Psychiatric/Behavioral: Negative for depression. The patient does not have insomnia. Allergic/Immunologic: Negative for hives and persistent infections. PHYSICAL EXAM: GEN: A&Ox3, WD WN NAD HEENT: WNL CHEST: CTAB, no W/R/R HEART: RRR, no M/R/G ABD: Soft, NT ND, BS x4 QUADS MS: Refer to previous note for detailed MS exam NEURO: CN II-XII intact The surgical consent was then reviewed with the patient, who agreed with all the contents of the consent form and it was signed. PHYSICAL THERAPY: She was also instructed regarding physical therapy and will begin on POD#1-3. She is doing physical therapy at [facility]. POST OP CARE: Instructions were reviewed including care of the wound and dressing after surgery and when she can shower. PAIN MANAGEMENT: Remedios Schofield was instructed regarding the Polar ice unit that will be in place after surgery and her postoperative pain medications. MEDICATION: Roxicodone 5 mg 1-2 q 4 hours PRN for pain Zofran 4 mg q 8 hours PRN for nausea and vomiting. Aspirin 81mg BID x 2 weeks for DVT prophylaxis starting on the evening after surgery. Post op meds to be delivered bedside prior to discharge. Deliver to family if patient is in surgery at 5pm. Patient was instructed to purchase and take Colace to counter possible GI side effects of taking opiates. DVT prophylaxis was discussed with the patient today including risk factors for developing DVTs and history of DVTs. The patient was asked if any specific recommendations were given from the doctor/s that did pre-operative surgical clearance. If the patient was previously taking 81mg baby aspirin, they were told to not take additional baby aspirin, using the above stated aspirin and to restart the 81mg aspirin daily after completion of the aspirin dose. Patient was also told to buy over the counter Prilosec medication and take it once daily for GI protection as long as they are taking NSAIDs or Aspirin. The patient was told that narcotic pain medications may make them drowsy and instructions were givento not sign legal documents, drive or operate heavy machinery, cars, or equipment while under the influence of narcotic medications. Dr. Ferrera was present in clinic during this pre-op evaluation. The patient was offered the opportunity to ask Dr. Ferrera any further questions regarding the procedure which may not have been addressedduring their previous informed consent discussion. The patient has declined to see Dr. Ferrera today. As there were no other questions to be asked, she was given my business card along with Dr. Ferrera'sbusiness card if she has any questions or concerns prior to surgery or in the postop period. I explained to following and the patient expressed understanding: The patient is currently aware of the COVID19 pandemic and that proceeding with their surgical procedure could potentially increase exposure to coronavirus in the community. The patient understands that there is the possibility of delayed or cancelled appts or PT visits in the future. They understand that infection with the coronavirus could complicate their surgery recovery. They are aware of the current policies and procedures of [facility] and the government regarding the pandemic and they were given the option of delaying my surgery. The patient elects to proceed with surgery at this time. Patient denies having any symptoms such as cough, SOB, fever, loss of taste/smell. The patient has been scheduled to undergo coronavirus testing on the day prior to surgery. The patient was instructed to practice strict social distancing, hand washing/hygiene, respiratory hygiene, and cough etiquette from now until 6 weeks following surgery to reduce the risk of ebonie coronavirus. documented in this encounter Miscellaneous Notes Op Note - Rui Ferrera MD - 01/06/2020 12:15 PM CDT [facility] OPERATIVE REPORT ORTHOPAEDIC SURGERY PROVIDER: DR. Janeth FERRERA PATIENT INFORMATION Remedios Schofield 44 y.o. female 1975 LOCATION: [facility] DATE OF PROCEDURE: 01/06/2020 PREOPERATIVE DIAGNOSES: Right 1. knee lateral??meniscus tear 2. knee chondromalacia ?? POSTOPERATIVE DIAGNOSES: Right 1. knee lateral??meniscus tear 2. knee chondromalacia 3. 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 PROCEDURE PERFORMED: Right 1. knee arthroscopic partial lateral meniscectomy (CPT 87052)? 2. knee arthroscopic limited synovectomy (CPT 13291) 3. knee arthroscopic chondroplasty Surgeon(s) and Role: * Rui Ferrera MD - Primary * Bhupinder Hebert DO - Fellow * SMA Bhupendra ANESTHESIA: General with local anesthetic injection (DAPHNE) ESTIMATED BLOOD LOSS: 10 cc IMPLANTS: * No implants in log * SPECIMENS: Specimen (12h ago, onward) None COMPLICATIONS: None. INTRAOPERATIVE COUNTS: Correct. PROPHYLACTIC IV ANTIBIOTICS: Given per [facility] Protocol. INDICATIONS FOR PROCEDURE: Remedios presented complaining of right knee pain with intermittent prominent mechanical symptoms which have been laterally based. Imaging has confirmed lateral meniscus tearing in the setting of chondromalacia and morbid obesity. The patient has failed prior conservative treatment. Her primary complaint is been true mechanical symptoms in the absence of discrete patellar instability. Given the extent and duration of these complaints, the patient has been indicated for arthroscopic intervention. Details of such were reviewed preoperatively to include the expected postoperative rehabilitation and recovery course. Outlined risks and potential complications of surgery include but are not limited to: infection, stiffness, progression of arthritis, tissue re-tearing, neurovascular injury, blood clot formation, potential need further surgery. We have discussed the relevance of her underlying chondromalacia and morbid obesity as relates to risk for continued or recurrent pain postop. The patient has elected to proceed. PROCEDURE IN DETAIL: The patient was identified in preop holding. Permit was obtained for the above procedure. IV antibiotic was initiated for prophylaxis and the patient was brought to the operating room. After Anesthesia was administered, a Time Out was verbalized with all OR staff agreeing to the patient and procedure. The right knee and leg were prepped and draped in the usual sterile fashion. Diagnostic arthroscopy was undertaken after establishing routine anteromedial and anterolateral scope portals. Significant Findings: 1. Patellofemoral compartment - lateral patellar maltracking with lateral patellar tilt, well-preserved articular cartilage 2. Notch - Normal ACL and PCL; synovitis surrounding the PCL. 3. Medial Compartment - Meniscus, intact. Cartilage, grade 2 chondromalacia over the medial aspect of the medial femoral condyle measuring approximately 5 x 8 mm, grade 2 chondromalacia of the medial tibial plateau. 4. Lateral compartment - Meniscus, degenerative free edge tearing of the posterior horn to anterior body with a horizontal cleavage component as well. Cartilage, grade 2 chondromalacia over the lateral aspect of the lateral femoral condyle over small area in addition to more diffuse grade 2 changes of the lateral tibial plateau. 5. Loose bodies - None 6. Other - Moderate diffuse synovitis over the anterior compartment and suprapatellar recess with adhesions Detailed description: 1. Meniscectomy: Partial lateral meniscectomy was carried out from the posterior horn to anterior horn with a combination of biters and the arthroscopic shaver. Trimming was completed to create a stable, well contoured edge. 2. Chondroplasty: Debridement was carried out at the medial femoral condyle, medial tibial plateau, lateral femoral condyle and lateral tibial plateau to smooth and stabilize the cartilage with a non-aggressive shaver. Unstable flaps of articular cartilage were removed. There was no exposed bone or high-grade chondral lesion otherwise. 3. Synovectomy: Combination of the arthroscopic shaver and thermal ablator device were used to perform a limited synovectomy over the anterior interval and the suprapatellar recess. Care was taken tomaintain hemostasis throughout. Photos were taken. The portals were closed in standard fashion using 3-0 Nylon suture. The dressing was placed after local was administered subcutaneously and the patient was awakened andtransferred to the recovery room in satisfactory condition. There were no apparent complications. POSTOPERATIVE PLAN: Patient may weight bear as tolerates on crutches. Full range of motion to tolerance. Will start physical therapy right away. ASA 81 mg BID x 2 weeks for DVT prophylaxis. lan of Lili Akhtar RN - 01/06/2020 11:30 AM CDTPt awaiting return of [facility] paperwork. Pt resting in stretcher, no distress noted. Plan of Keyla Banerjee RN - 01/06/2020 10:20 AM CDTDischarged to home with family. Pain controlled. Denies nausea. AVS reviewed and copy given. Consents in chart.Ordered DME provided to patient. Verbal and written instructions were given to the patientand a competent caregiver on proper usage. Also educated on the risk of falling if DME is not used/not used properly. All parties verbalized understanding. rief Op Note - Ron Goldstein PA-C - 01/06/2020 8:09 AM CDT [facility] Brief Operative Note Surgery Date: 01/06/2020 Surgeon(s) and Role: * Rui Ferrera MD - Primary Assisting Surgeon: None Pre-op Diagnosis: Old tear of lateral meniscus of right knee, unspecified tear type [M23.200] Post-op Diagnosis: Post-Op Diagnosis Codes: * Old tear of lateral meniscus of right knee, unspecified tear type [M23.200] Procedure(s) (LRB): ARTHROSCOPY, KNEE, WITH MENISCECTOMY (Right) Anesthesia: General Description of the findings of the procedure(s): Old tear of lateral meniscus of right knee, unspecified tear type [M23.200] Estimated Blood Loss: * No values recorded between 01/06/2020 7:47 AM and 01/06/2020 8:09 AM * Specimens: Specimen (12h ago, onward) None Discharge Note OUTCOME: Patient tolerated treatment/procedure well without complication and is now ready for discharge. DISPOSITION: Home or Self Care FINAL DIAGNOSIS: Old tear of lateral meniscus of right knee, unspecified tear type [M23.200] FOLLOWUP: In clinic DISCHARGE INSTRUCTIONS: No discharge procedures on file. lan of Chino Louis RN - 01/06/2020 7:20 AM CDTVerbal timeout with OR nurse Dempsey. Verified pt's name, , NKDA, anesthesia and surgery consents. lan of Ramirez Benton RN - 01/06/2020 6:30 AM CDTPre-op complete, all questions answered, pt is stable and ready for next phase of care. Pt states she will need a walker. Pt's belongings are with her . Call light within reach. documented in this encounter Plan of Treatment Not on filedocumented as of this encounter Goals Goal Patient Goal Associated Recent Patient-Stated? 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 Reduce portion size Diet No Cutur a, Precious DIET - Meal Planning Diet No Cutu raPrecious Note: Your goal is to incorporate meal plannin g in your daily routine. Reduce portions Diet No Cutura, C hristina Meal plan Diet No Cutura Marco A noah Exercise at least 150 minutes per week. Exercise No Cutura Precious Note: Your goal is to increase exercise routin e and start Spin Classes next week. documented as of this encounter Procedures Procedure Name Priority Date/Time Associated Diagnosis Comme nts ARTHROSCOPY, KNEE, WITH 01/06/2020 7:22 AM Old tear o f lateral CHONDROPLASTY CDT meniscus of right knee, unspecified tear type Special Needs arthroscopy equipment, cooli ng unit ARTHROSCOPY, KNEE, WITH 01/06/2020 7:22 AM CDT Old te ar of lateral meniscus MENISCECTOMY of right knee, unspecified tear type Special Needs arthroscopy equipment, cooli ng unit CARDIAC MONITORING STRIPS 01/06/2020 12:00 AM CDT documented in this encounter Visit Diagnoses Diagnosis Old tear of lateral meniscus of right kn ee, unspecified tear type documented in this encounter Admitting Diagnoses Diagnosis Old tear of lateral meniscus of right kn ee documented in this encounter Administered Medications Inactive Administered Medications - up to 3 most recent administrations Medication Order MAR Action Action Date Dose Rate Site 0.9% NaCl infusion New Bag 01/06/2020 6:14 AM CDT 125 mL/hr Intravenous, Continuous, at 125 mL/hr, Starting on Thu01/06/20 at 0545, Pre-op acetaminophen tablet 1,000 mg Given 01/06/2020 6:14 AM CDT 1,000 mg 1,000 mg, Oral, Once pre-op, On Thu01/06/20 at 0545, For 1 dose, Pre-op ceFAZolin injection 2 g Given 01/06/2020 7:33 AM CDT 2 g 2 g, Intravenous, Foundry Metallurgist Procedure, Surgery, Starting on Thu01/06/20 at 0539, Administer 30 minutes prior to incision, Pre-op celecoxib capsule 400 mg Given 01/06/2020 6:25 AM CDT 400 mg 400 mg, Oral, Once, On Thu01/06/20 at 0545, For 1 dose, Pre-op fentaNYL injection 25 mcg Given 01/06/2020 9:09 AM CDT 25 mcg 25 mcg, Intravenous, Every 5 min PRN, Severe pain 6-10/10 pain scale, Starting on Thu01/06/20 at 0842, For 4 doses, PACU Given 01/06/2020 9:04 AM CDT 25 mcg Given 01/06/2020 8:59 AM CDT 25 mcg haloperidol lactate injection 0.5 mg 0.5 mg, Intravenous, Every 10 min PRN, A gitation, nausea/ vomiting (1st choice) - use as first treatment, Starting on Thu01/06/20 at 08 42, For 2 doses, PACU HYDROmorphone injection 0.2 mg Given 01/06/2020 10:21 AM CDT 0.2 mg 0.2 mg, Intravenous, Every 5 min PRN, Breakthrough Pain, Starting on Thu01/06/20 at 0917, For 10 doses, PACU Given 01/06/2020 10:16 AM CDT 0.02 mg Given 01/06/2020 10:11 AM CDT 0.2 mg methocarbamoL tablet 750 mg Given 01/06/2020 8:55 AM CDT 750 mg 750 mg, Oral, Once as needed, Muscle spasms, Starting on Thu01/06/20 at 0906, For 1 dose mupirocin 2 % ointment Given 01/06/2020 6:15 AM CDT Nasal, Foundry Metallurgist Procedure, surgery, Starting on Thu01/06/20 at 0539, Apply to both nares prior to procedure, Pre-op oxyCODONE immediate release tablet 5 mg Given 01/06/2020 11:49 AM CDT 5 mg 5 mg, Oral, Every 3 hours PRN, moderate pain 2-5/10 pain scale, Starting on Thu01/06/20 at 0842, PACU Given 01/06/2020 9:08 AM CDT 5 mg sodium chloride 0.9% flush 10 mL 10 mL, Intravenous, As needed (PRN), Libia e Care, Starting on Thu01/06/20 at 0906, PACU documented in this encounter Active and Recently Administered Medications Times are shown in CDT. Scheduled Medication Order 01/04/2020 01/05/2020 01/06/2020 acetaminophen tablet 1,000 mg (COMPLETED) 0614 (Given - Provider: Ramirez Peacock, DIANDRA) 1,000 mg, Oral, Once pre-op, Thu01/06/20 at 0545, For 1 dose, P re-op celecoxib capsule 400 mg (COMPLETED) 06 (Given - Provider: Ramirez Peacock, DIANDRA) 400 mg, Oral, Once, Thu01/06/20 at 0545, For 1 dose, Pre-op Continuous Medication Order 01/04/2020 01/05/2020 01/06/2020 0.9% NaCl infusion 0614 (New Ba g - Provider: Ramirez Peacock RN)0755 (Stopped - Provider: Melanie Quiros CRNA) Intravenous, Continuous, at 125 mL/hr, Starting Thu01/06/20 at 0545, Pre-op PRN Medication Order 01/04/2020 01/05/2020 01/06/2020 ceFAZolin injection 2 g 0733 (Gi manjula - Provider: Melanie Quiros CRNA) 2 g, Intravenous, Foundry Metallurgist Procedure, Jacqueline kyle, Starting Thu01/06/20 at 0539, Administer 30 minutes prior to incision, Pre-op EPINEPHrine injection (CANCELED) 0757 (Given - Provider: Rui Ferrera MD - Comment: 3 mg in each bag of 3000 ml normal saline) As needed (PRN), Starting Thu01/06/20 at 0757, Intra-op fentaNYL injection 25 mcg (COMPLETED) 0854 (Given - Provider: Keyla Vines RN)0859 (Given - Provider: Keyla Vines, DIANDRA)0904 (Given - Provider: Keyla Vines, DIANDRA)0909 (Given - Provider: Keyla Vines RN) 25 mcg, Intravenous, Every 5 min PRN, Se nicholas pain 6-10/10 pain scale, Starting Thu01/06/20 at 0842, For 4 doses, PACU haloperidol lactate injection 0.5 mg 0.5 mg, Intravenous, Every 10 min PRN, A gitation, nausea/ vomiting (1st choice) - use as first treatment, Starting Thu01/06/20 at 0842, For 2 doses, PACU HYDROmorphone injection 0.2 mg 0 922 (Given - Provider: Keyla Vines RN)0927 (Given by Other - Provider: Keyla Vines RN)0933 (Given - Provider: Keyla Vines RN)0935 (Given - Provider: Keyla Vines RN)0946 (Given - Provider: Keyla Vines RN) 0.2 mg, Intravenous, Every 5 min PRN, Br eakthrough Pain, Starting Thu01/06/20 at 0917, For 10 doses, PACU 1006 (Given - Provider: Keyla Vines RN)1011 (Given - Provider: Keyla Vines RN)1016 (Given - Provider: Keyla Vines RN)1021 (Given - Provider: Keyla Vines RN)1027 (Ca nceled Entry - Provider: Keyla Vines RN) methocarbamoL tablet 750 mg (COMPLETED) 0855 (Given - Provider: Keyla Vines RN) 750 mg, Oral, Once as needed, Muscle spa sms, Starting Thu01/06/20 at 0906, For 1 dose mupirocin 2 % ointment 0615 (Giv en - Provider: Ramirez Peacock, DIANDRA) Nasal, Foundry Metallurgist Procedure, surgery, Start ing Thu01/06/20 at 0539, Apply to both nares prior to procedure, Pre-op oxyCODONE immediate release tablet 5 mg 0908 (Given - Provider: Keyla Vines RN)1149 (Given - Provider: Keyla Vines RN) 5 mg, Oral, Every 3 hours PRN, moderate pain 2-5/10 pain scale, Starting Thu01/06/20 at 0842, PACU violdrsiqru-xqe-pmgoxq-ketorol (DAPHNE) 2. 46-0.005- 0.0008-0.3mg/mL solution Syrg (CANCELED) 0758 (Given - Provid er: Rui Ferrera MD - Comment: given to sterile field) As needed (PRN), Starting Thu01/06/20 at 0758, Intra-op sodium chloride 0.9% flush 10 mL 10 mL, Intravenous, As needed (PRN), Libia Rojas, Starting Thu01/06/20 at 0906, PACU documented in this encounter
--- OUTSIDE RECORDS SUMMARY | 2020-04-15 13:28 | XMS_ITS | Encounter Summary ---
:1975 Author Organization [facility] and It [facility] Subsidiaries and Affiliates Address [address] [place] [address] Care Team Providers Name Role Phone GENTRY Braswell Unavailable Unavailable MD Romario Primary Care Provider gina Moralez II, MD, F. Unavailable Maggy Agustin MD Unavailable Napoleon Loyola MA Unavailable Unavailable Encounter Details Date Type Department Care Team Description 12/30/2019 Telephone [facility] - Sports Med 1st Darcie Diaz MA Fl [address] [place], [place] [phone] Research Biologist: Karlene Arroyo Social History Tobacco Use Types Packs/Day Years [...] or relatives? How often do you attend confucianism or 1 to 4 times per year 10/08 restorationist services? Do you belong to any clubs or No 10/30/2018 organizations such as confucianism groups, unions, fraternal or athletic groups, or [...] this encounter Miscellaneous Notes Telephone Encounter - Ernie Diaz MA - 12/30/2019 1:01 PM CDTSpoke with patient in regards to upcoming surgery. Per her vascular sonographer, advised her to d/c aspirin 48hrs before surgery, and to restart 24hrs after surgery. Had patient repeat instruction back to me. Verbalized understanding. elephone Encounter - Ernie Diaz MA - 12/30/2019 1:00 PM CDT----- Message from Ron Goldstein PA-C sent at 12/29/2019 4:29 PM CDT ----- Regarding: FW: pre op asa Can you call this patient and let them know that she can stop her aspirin 48 hours prior to surgery then restart 24 hours after? This is per her vascular sonographer. Thank you!Edgar ----- Message ----- From: Nam Agustin MD Sent: 12/29/2019 4:18 PM CDT To: Ron Goldstein PA-C Subject: RE: pre op asa Yes Not a problem ZN ----- Message ----- From: Ron Goldstein PA-C Sent: 12/27/2019 3:28 PM CDT To: Nam Agustin MD Subject: pre op asa Good Afternoon Dr. Agustin, This patient is scheduled for a knee scope on 01/06/2020, thank you for sending your clearance for this procedure. I was wondering if you would be ok with her stopping the aspirin 81mg 2 days prior to the procedure (this is our typical recommendation) then we would have her taking aspirin 81mg PO BID for 2 weeks afterwards starting 24 hours post op. Thank you, Ron Goldstein PA-C documented in this encounter Plan of Treatment Not on filedocumented as of this encounter Goals Goal Patient Goal Associated Recent Patient-Stated? 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
--- OUTSIDE RECORDS SUMMARY | 2020-04-15 13:28 | XMS_ITS | Encounter Summary ---
:1975 Author Organization [facility] and It s Subsidiaries and Affiliates Address [address] [place] [address] Care Team Providers Name Role Phone GENTRY Braswell Unavailable Unavailable MD Romario Primary Care Provider gina Moralez II, MD, F. Unavailable Maggy Agustin MD Unavailable Napoleon Loyola MA Unavailable Unavailable Reason for Visit Physical Medicine (Routine) Status Reason Specialty Diagnoses / Referred By Referred To Procedures Contact Contact Pending Specialty Physical Diagnoses Old tear of lateral meniscus of right knee, unspecified tear type Joe Goldstein Rehab Review Services Therapy / Ron Lance, Outpatient Required Outpatient PA-C Services - 1st Rehab [address] [facility] [address], [place] [address] [place], Phone: [place] [phone] Phone: Encounter Details Date Type Department Care Team Description 01/09/2020 Clinical Support Brit Gallo - Devendra Goldstein, PA-C [address] [place], [place] [phone] Old tear of lateral meniscus of right kn ee, unspecified tear type; Rehab 1st Fl Eric Mccormack, PT Acute pain of right knee; [address] [place] Gait abnorm ality; Pkwy Decreased range of motion; [place], [place] Weakness [phone] Social History Tobacco Use Types Packs/Day [...] or relatives? How often do you attend cheondoism or 1 to 4 times per year 10/08 protestant services? Do you belong to any clubs or No 10/30/2018 organizations such as cheondoism groups, unions, fraternal or athletic groups, or [...] as of this encounter Patient Instructions Patient InstructionsEric Mccormack, PT - 01/09/2020 2:00 PM CARTON MARKER MACHINE ON MARKER MACHINE documented in this encounter Progress Notes Eric Mccormack, PT - 01/09/2020 2:00 PM CSTPlease see POC for eval and treat. ON MARKER MACHINE documented in this encounter Miscellaneous Notes Plan of Care - Eric Mccormack, PT - 01/09/2020 2:00 PM CST [facility] Physical Therapy Initial Evaluation Name: Remedios [facility] Number: [id number] Therapy Diagnosis: Encounter Diagnoses Name Primary? Old tear of lateral meniscus of right knee, unspecified tear type ??? Acute pain of right knee ??? Gait abnormality ??? Decreased range of motion ??? Weakness Physician: Ron Goldstein PA* Physician Orders: PT Eval and Treat Medical Diagnosis from Referral: M23.200 (ICD-10-CM) - Old tear of lateral meniscus of right knee, unspecified tear type Evaluation Date: 01/09/2020 Authorization Period Expiration: 03/08/2020 Plan of Care Expiration: 03/08/2020 Visit # / Visits authorized: Time In: 1405 Time Out: 1503 Total Billable Time: 57 minutes Precautions: Standard Subjective Date of onset: 01/06/2020 History of current condition - Remedios reports: to physical therapy today s/p R knee arthroscopic lateral menisectomy. She reports a 3 month history of knee pain that began when stood up from sitting on the ground and had immediate knee pain with intermittent locking/catching/popping since. Since her surgery she reports no complaints of numbness/tingling in her LE and no complaints of notable calf pain/swelling. She understands she is WBAT, but has not put much weight on her right leg because she doesnot trust it very much right now. 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 Medical History: Past Medical History: Diagnosis Date ??? A-fib ??? Atrial fibrillation 1982 ??? Atrial fibrillation ??? Bronchitis ??? Fibroid, uterine ??? Hypertension Surgical History: Remedios Schofield has a past surgical history that includes Myomectomy (2014); Hysterectomy (12/31/2018); Knee arthroscopy w/ meniscectomy (Right, 01/06/2020); and Arthroscopic chondroplasty of knee joint (Right, 01/06/2020). Medications: Remedios has a current medication list which includes the following prescription(s): aspirin, flecainide, hydrochlorothiazide, metformin, metoprolol succinate, ondansetron, oxycodone, and spironolactone. Allergies: Review of patient's allergies indicates: No Known Allergies Objective Observation: Unable to visualize incision portals due to patient clothing at time of IE. Pt is alertand oriented. Some swelling observable. Gait: Ambulates with axillary crutches x2. Self-selects NWB on involved LE. Knee Active Range of Motion: Right Left Flexion 60 125 Extension +5 -5 Knee Passive Range of Motion: Right Left Flexion 80 125 Extension +5 -5 Quad Set: Inhibited on R Joint Mobility: R patellar hypomobility with sup/med and inf/lateral glide. Hypomobility with AP tibiofemoral glide Palpation: Mild TTP at lateral joint line, medial and lateral infrapatellar fat pad, and over incision sites. No notable TTP along medial calf. Sensation: Decreased compared to contralateral side at medial infrapatellar region. Pulses: Strong and WNL Edema: Mid-Patellar circumference: R 2.5cm greater than L Special Tests: Not performed today due to post-op status Strength: Not performed today due to post-op status. [facility] Impairment/Limitation/Restriction for FOTO Knee Survey Therapist reviewed FOTO scores for Remedios Schofield on 01/09/2020. FOTO documents entered into [employer] - see Media section. Limitation Score: See Media Category: Mobility Treatment Treatment Time In: 1444 Treatment Time Out: 1459 Total Treatment time separate from Evaluation: 15 minutes Remedios received therapeutic exercises to develop strength, ROM and flexibility for 15 minutes including: Heel slides with towel under knee to A 5m Quad Sets 3m Self PFJ and fat pad mobs 3m Ankle PF resisted gtb 20x Home Exercises and Patient Education Provided Education provided: - Education and instruction on crutch use and safety including navigation into shower. Instruction to avoid submerging incision sites. Appropriate timelines for milestones. - Prognosis, activity modification, goals for therapy, role of therapy for care, exercises/HEP Written Home Exercises Provided: See Patient instructions. Exercises were reviewed and Remedios was able to demonstrate them prior to the end of the session. Pt received a written copy of exercises to perform at home. Remedios demonstrated good understanding of the education provided. See EMR under patient instructions for exercises given. Assessment Remedios is a 44 y.o. female referred to outpatient Physical Therapy s/p R arthroscopic lateral menisectomy with - Dec ROM - Dec strength/ motor control quad - Swelling knee - altered gait mechanics - Dec pau to age related activities, ADLs, IADLs Pt will benefit from skilled outpatient Physical Therapy to address the deficits stated above and inthe chart below, provide pt/family education, and to maximize pt's level of independence. Pt prognosis is Good. Plan of care discussed with patient: Yes Pt's spiritual, cultural and educational needs considered and patient is agreeable to the plan of care and goals as stated below: Anticipated Barriers for therapy: Uncertainty about trusting involved LE. Medical Necessity is demonstrated by the following History Co-morbidities and personal factors that may impact the plan of care Co-morbidities: high BMI and HTN Personal Factors: None low Examination Body Structures and Functions, activity limitations and participation restrictions that may impact the plan of care Body Regions: lower extremities Body Systems: gross symmetry ROM strength gross coordinated movement balance gait transfers transitions motor control Participation Restrictions: None Activity limitations: Learning and applying knowledge No deficit General Tasks and Commands No deficit Communication No deficit Mobility lifting and carrying objects walking driving (bike, car, motorcycle) Self care No deficit Domestic Life No deficit Interactions/Relationships No deficit Life Areas Walking and health/wellness activities. Community and Social Life No deficit moderate Clinical Presentation stable and uncomplicated low Decision Making/ Complexity Score: low Goals: Short Term Goals: 4 weeks 1. Pt will be compliant with HEP 50% of prescribed amount. 2. The pt to demo improvement in knee ROM to at least 110 degrees of flexion and -5 degrees extension 3. Improve quad activation to achieve TKE with quad set. Repeater Operator Goals: 10 weeks 1. Pt will be [...] restrictions related to R knee pain. Plan Plan of care Certification: 01/09/2020 to 03/08/2020. Outpatient Physical Therapy 2 times weekly for 10 weeks to include the following interventions: GaitTraining, Manual Therapy, Moist Heat/ Ice, Neuromuscular Re- ed, Patient Education, Self Care, Therapeutic Activites and Therapeutic Exercise. Eric Mccormack PT , DPT ON MARKER MACHINE documented in this encounter Plan of Treatment Not on filedocumented as of this encounter Goals Goal Patient Goal Associated Recent Patient-Stated? Author Type Problems Progress Blood Pressure Blood 197/101 Yes Myochsner, < 130/80 Pressure (02/21/2020 System Messag e 10:15 AM CARTON MARKER MACHINE) Take at least Blood No Cutura, one BP reading Pressure Precious per week at various times of the day Maintain a low Diet No Cutura, sodium diet Precious Note: [place] Heart Association (AHA) guideli francisco recommend less [...] as of this encounter Visit Diagnoses Diagnosis Old tear of lateral meniscus of right kn ee, unspecified tear type Acute pain of right knee Gait abnormality Abnormality of gait Decreased range of motion Weakness Other malaise and fatigue documented in this encounter
--- OUTSIDE RECORDS SUMMARY | 2020-04-15 13:28 | XMS_ITS | Encounter Summary ---
:1975 Author Organization [facility] and It s Subsidiaries and Affiliates Address [address] [place] [address] Care Team Providers Name Role Phone GENTRY Braswell Unavailable Unavailable MD Romario Primary Care Provider gina Moralez II, MD, F. Unavailable Maggy Agustin MD Unavailable Napoleon Loyola MA Unavailable Unavailable Encounter Details Date Type Department Care Team Description 01/03/2020 Lab Visit [facility] - [address] Pre-op testing [address] [place] [phone] Gift Shop Manager: Karlene Arroyo Social History Tobacco Use Types [...] 1 to 4 times per year 10/08 shinto services? Do you belong to any clubs [...] documented as of this encounter Progress Notes Meaghan Feldman MA - 01/03/2020 12:45 PM CDTCOVID Screening Specimen Collected POSTIVE for the following symptoms: None NEGATIVE for the following symptoms: Fever Cough Shortness of breath Difficulty breathing GI symptoms such as diarrhea or nausea Loss of taste Loss of smell Patient was given: 1.Instructions for Patients Awaiting COVID-19 Test Results 2. CDC: What to do if you are sick with coronavirus disease 2019 (COVID-19) documented in this encounter Plan of Treatment Not on filedocumented as of this encounter Goals Goal Patient Goal Associated Recent Patient-Stated? Author Type Problems Progress Blood Pressure Blood 197/101 Yes Myochsner, < 130/80 Pressure (02/21/2020 System Messag e 10:15 AM BLACK PICKLER) Take at least Blood No Cutura, one BP reading Pressure Precious per week at various times of the day Maintain a low Diet No Cutura, sodium diet Precious Note: [place] Island[place] Heart Association (AHA) guideli francisco recommend less than 2000mg of dietary salt per day. Reduce portion size Diet No Cutur a, Precious DIET - Meal Planning Diet No Cutu raPrecious Note: Your goal is to incorporate meal plannin g in your daily routine. Reduce portions Diet No Cutura, C hristina Meal plan Diet No Cutjil, Marco A noah Exercise at least 150 minutes per week. Exercise No Cutura Precious Note: Your goal is to increase exercise routin e and start Spin Classes next week. documented as of this encounter Procedures Procedure Name Priority Date/Time Associated Comments Diagnosis SARS-COV-2 (COVID-19) [place] 01/03/2020 12:50 Pre-op testing Results for this QUALITATIVE PCR PM CDT procedure ar e in the results section. documented in this encounter Results COVID-19 Routine Screening (01/03/2020 12:50 PM CDT) [facility] SARS-CoV2 Not Detected Not Detected [facility] (COVID-19) Comment: CENTER - NEW Qualitative PCR This test utilizes a real-time reverse transcriptio ORLEANS polymerase chain reaction procedure to amplify and detect the SARS-CoV-2 RdRp and N genes. ?? The analytical sensitivity (limit of detection) of this assay is 100 copies/mL. A Detected result is considered positive for COVID-19. This patient is considered infected with the SARS-CoV-2 virus and is presumed to be contagious. ?? A Not Detected result means that SARS-CoV-2 RNA is not present above the limit of detection. It does not rule out the possibility of COVID-19 and should not be the sole basis for treatment decisions. ??If COVID-19 is strongly suspected based on clinical and exposure history,re-testing should be considered. ?? This test is only for use under Food and Drug Administration s Emergency Use Authorization (EUA). Commercial reagents are provided by [employer]. Performance characteristics of the EUA have been independently verified by [facility] Department of Pathology and Laboratory Medicine. ?? Specimen Nasopharyngeal - Nasopharyngeal Narrative Performed At Is the patient symptomatic?->No [facility] Is this needed for pre-procedure or pre-op testing?->Yes Diagnosis:->Pre-op testing Performing Organization Address City/State/ZIP Code Phon e Number [facility] [address] documented in this encounter Visit Diagnoses Diagnosis Pre-op testing Unspecified pre-operative examination documented in this encounter
--- OUTSIDE RECORDS SUMMARY | 2020-04-15 13:28 | XMS_ITS | Encounter Summary ---
:1975 Author Organization [facility] and It s Subsidiaries and Affiliates Address [address] [place] [address] Care Team Providers Name Role Phone GENTRY Braswell Unavailable Unavailable MD Romario Primary Care Provider gina Moralez II, MD, F. Unavailable Maggy Agustin MD Unavailable Napoleon Loyola MA Unavailable Unavailable Encounter Details Date Type Department Care Team Description 01/05/2020 Pharmacy Visit [facility] [address] [place], [place] [phone] Social History Tobacco Use Types Packs/Day Years [...] or relatives? How often do you attend restorationism or 1 to 4 times per year 10/08 congregational services? Do you belong to any clubs or No 10/30/2018 organizations such as restorationism groups, unions, fraternal or athletic groups, or [...] Pressure (02/21/2020 System Messag e 10:15 AM EMISSIONS TESTING TECHNICIAN) Take at least Blood No Cutura, one BP reading Pressure Precious per week at various times of the day Maintain a low Diet No Cutura, sodium diet Precious Note: [place] Heart Association (AHA) guideli francisco recommend less than 2000mg of dietary salt per day. Reduce portion size Diet No Precious Hernandez DIET - Meal Planning Diet No Luzu Precious castaneda Note: Your goal is to [...]
--- OUTSIDE RECORDS SUMMARY | 2020-04-15 13:28 | XMS_ITS | Encounter Summary ---
:1975 Author Organization [facility] and It s Subsidiaries and Affiliates Address [address] [place] [address] Care Team Providers Name Role Phone GENTRY Braswell Unavailable Unavailable MD Romario Primary Care Provider gina Moralez II, MD, F. Unavailable Maggy Agustin MD Unavailable Napoleon Loyola MA Unavailable Unavailable Encounter Details Date Type Department Care Team Description 01/05/2020 Pharmacy Visit [facility] [place] [facility] [place] [address], [address] [place] [phone] Social History Tobacco Use Types Packs/Day Years [...] or relatives? How often do you attend shinto or 1 to 4 times per year 10/08 yarsani services? Do you belong to any clubs or No 10/30/2018 organizations such as shinto groups, unions, fraternal or athletic groups, or [...] Pressure (02/21/2020 System Messag e 10:15 AM CUSTODY OFFICER) Take at least Blood No Cutura, one BP reading Pressure Precious per week at various times of the day Maintain a low Diet No Cutura, sodium diet Precious Note: [place] Heart Association (AHA) guideli francisco recommend less [...]
--- OUTSIDE RECORDS SUMMARY | 2020-04-15 13:28 | XMS_ITS | Encounter Summary ---
:1975 Author Organization [facility] and It s Subsidiaries and Affiliates Address [address] [place] [address] Care Team Providers Name Role Phone GENTRY Braswell Unavailable Unavailable MD Romario Primary Care Provider gina Moralez II, MD, F. Unavailable Maggy Agustin MD Unavailable Napoleon Loyola MA Unavailable Unavailable Encounter Details Date Type Department Care Team Description 01/06/2020 Procedure Pass [facility] [address] [place] [phone] Social History Tobacco Use Types Packs/Day Years [...] or relatives? How often do you attend jewish or 1 to 4 times per year 10/08 episcopal services? Do you belong to any clubs or No 10/30/2018 organizations such as jewish groups, unions, fraternal or athletic groups, or [...] Pressure (02/21/2020 System Messag e 10:15 AM NONFARM ANIMAL CARETAKER) Take at least Blood No Cutura, one [...]
--- OUTSIDE RECORDS SUMMARY | 2020-04-15 13:28 | XMS_ITS | Encounter Summary ---
:1975 Author Organization [facility] and It s Subsidiaries and Affiliates Address [address] [place] [address] Care Team Providers Name Role Phone GENTRY [...] right knee, unspecified tear type [M23.200] Rui Lux Elmh Periop Procedures [place] KNEE SCOPE SINGLE MENISECECTOMY ARTHROSCOPY, KNEE, WITH MENISCECTOMY Services [address] [facility] 1ST FLOOR BUILDING [place] [address] [facility] [phone] [place], [place] Phone: [phone] Phone: Encounter Details Date Type Department Care Team Description 01/06/2020 Anesthesia Event [facility] Tonio Dodd MD [address] [place] [address] - Brad Ferraro MD [address] [place] [address] [phone] [address] [place] [id number] Anesthesia Record Procedure Summary Procedure Name Responsible Anesthesia Start Anesthesia Stop Anesthesiologist Time Time ARTHROSCOPY, KNEE, Tonio Dodd MD 01/06/20 0721 0849 WITH PARTIAL LATERAL MENISCECTOMY (Right Knee) Events Date Time Event Comment 01/06/2020 0622 0641 Anesthesia Prepared 0721 An Start Continuous care of the patient has been initiated by the anesthesi a care team. 0722 An Start Data The anesthesia c are team has confirmed the patient ID and r e-evaluated the patient and anesthesia plan confirming it is suitable for the patient's condit ion and procedure. 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 0836 An Emergence 0841 Extubation Emergence: {AN E MERGENCE:[id number]} 0844 an stop data 0849 An Stop Name Total ceFAZolin injection 2 g 2 g midazolam injection 1 mg/mL 2 mg fentaNYL 0.05mg/mL injection 150 mcg propofol (DIPRIVAN) 10 mg/mL IVP 300 mg lidocaine 2% injection 100 mg (cardiac) 100 mg dexamethasone (DECADRON) injection 4 mg/mL 8 mg ondansetron HCl (PF) 4 mg/2 mL injection 4 mg ketamine injection 10 mg/mL syringe 20 mg carboxymethylcellulose (REFRESH PLUS) ophthalmic solut ion 2 drop dexmedetomidine (PRECEDEX) injection 100 mcg/mL 12 mcg glycopyrrolate 0.2 mg/mL injection 0.2 mg 0.9% NaCl infusion 1,000 mL isolyte 400 mL Agents Name O2 N2O Air Fi O2 #1 Et CO2 #1 Fi N2O Inspired Sevoflurane Et Sevoflurane Et N2O Fi O2 #2 Desflurane Used Isoflurane Used Sevoflurane Used Blood No blood administrations on file. Lines, Drains, and Airways Type Details Placement Removal Incision/Site 01/06/20; 0637; Left; 01/06/20 0637 by Knee Chino Bales RN Peripheral IV (Single) Present Prior to 01/06/20 0602 by 0 1054 by Hospital Arrival?: No; DIANDRA Chou, Placement Date: RN 01/06/20; Placement Time: 0602; Size: 20 G; Orientation: Left; Location: Wrist; Placement Directed by: Anatomic Landmarks; Site Prep: Chlorhexidine ; Local Anesthetic: None; Inserted By: RN Hiram Hutson); Insertion Attempts: 1; Patient Tolerance: Tolerated well; Removal Date: 01/06/20; Removal Time:1054; Removal Indication & Assessment: removed per policy, catheter intact, removed per order Airway - Present Prior to 01/06/20 0727 by 01/06/20 0841 by Non-Surgical Hospital Arrival?: No; MIKAELA Platt CRNA Placement Date: 01/06/20; Placement Time: 726 (created via procedure documentation); Inserted by: MIKAELA; Airway Device: LMA; Mask Ventilation: Not Attempted; Intubated: Postinduction; Airway Device Size: 4.5; Style: Cuffed; Cuff Inflation: Minimal occlusive pressure; Inflation Amount: 0; Placement Verified By: Capnometry; Complicating Factors: None; Intubation Findings: Bilateral breath sounds; Securment: Lips; Complications: None; Breath Sounds: Equal Bilateral; Insertion Attempts: 1; Removal Date: 01/06/20; Removal Time: 08 documented in this encounter Social History Tobacco [...] or relatives? How often do you attend latter day or 1 to 4 times per year 10/08 adventist services? Do you belong to any clubs or No 10/30/2018 organizations such as latter day groups, unions, fraternal or athletic groups, or [...] encounter OR Notes Anesthesia Postprocedure Evaluation - Tonio Dodd MD - 01/07/2020 5:47 PM CDT Anesthesia Post Evaluation Patient: Remedios Winter Chandu Procedure(s) Performed: Procedure(s) (LRB): ARTHROSCOPY, KNEE, WITH PARTIAL LATERAL MENISCECTOMY (Right) ARTHROSCOPY, KNEE, WITH CHONDROPLASTY (Right) Final Anesthesia Type: general Patient location during evaluation: PACU Patient participation: Yes- Able to Participate Level of consciousness: awake and alert Post-procedure vital signs: reviewed and stable Pain management: adequate Airway patency: patent PONV status at discharge: No PONV Anesthetic complications: no Cardiovascular status: blood pressure returned to baseline Respiratory status: unassisted Hydration status: euvolemic Follow-up not needed. Vitals Value Taken Time BP 174/81 01/06/20 1031 Temp 36.8 ??C (98.3 ??F) 01/06/20 0845 Pulse 69 01/06/20 1047 Resp 29 01/06/20 1047 SpO2 97 % 01/06/20 1047 Vitals shown include unvalidated device data. Event Time Out of Recovery 10:49:51 Pain/Katherin Score: Pain Rating Prior to Steel Layout Worker: 6 (01/06/2020 11:49 AM) Katherin Score: 9 (01/06/2020 9:15 AM) Anesthesia Procedure Notes - Melanie Quiros CRNA - 01/06/2020 7:39 AM CDT Associated Order(s): Airway ManagementIntubation Performed by: Melanie Quiros CRNA Authorized by: Tonio Dodd MD Intubation: Induction: Intravenous Intubated: Postinduction Attempts: 1 Attempted By: MIKAELA Difficult Airway Encountered?: No Complications: None Airway Device: Intubating LMA Airway Device Size: 4.5 Style/Cuff Inflation: Cuffed Inflation Amount (mL): 0 Secured at: The lips Placement Verified By: Capnometry Complicating Factors: None Findings Post-Intubation: BS equal bilateral nesthesia Preprocedure Evaluation - Tonio Dodd MD - 01/06/2020 6:19 AM CDT 01/06/2020 Remedios Schofield is a 44 y.o., female. Anesthesia Evaluation I have reviewed the Patient Summary Reports. Review of Systems Anesthesia Hx: No problems with previous Anesthesia Social: Non-Smoker Hematology/Oncology: -- Denies Anemia: Cardiovascular: Hypertension Functional Capacity good / => 4 METS Hypertension Pulmonary: Denies Pneumonia Denies Asthma. Denies Asthma. Denies Chronic Obstructive Pulmonary Disease (COPD). Renal/: Renal/ Normal Denies Chronic Renal Disease. 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 Jaw/Neck Findings: Neck ROM: Normal ROM Eyes/Ears/Nose: Eyes/Ears/Nose Findings: Dental: Dental Findings: Periodontal disease, Mild Chest/Lungs: Chest/Lungs Findings: Clear to auscultation Heart/Vascular: Heart Findings: Rate: Normal Rhythm: Regular Rhythm Abdomen: Abdomen Findings: Normal, Soft Mental Status: Mental Status Findings: Cooperative, Alert and Oriented ?? TTE: Mild eccentric left ventricular hypertrophy. ?? Normal left ventricular systolic function. The estimated ejection fraction is 55-60%. ?? Grade II (moderate) left ventricular diastolic dysfunction consistent with pseudonormalization. ?? No wall motion abnormalities. ?? Normal right ventricular systolic function. ?? Mild left atrial enlargement. ?? Normal central venous pressure (3 mmHg). Mild mitral regurgitation. Anesthesia Plan Type of Anesthesia, risks & benefits discussed: Anesthesia Type: general Patient's Preference: Intra-op Monitoring Plan: standard ASA monitors Intra-op Monitoring Plan Comments: Post Op Pain Control Plan: multimodal analgesia and IV/PO Opioids PRN Post Op Pain Control Plan Comments: Induction: IV Beta Janine: Patient is on a Beta-Janine and has received one dose within the past 24 hours (No further documentation required). Informed Consent: Patient understands risks and agrees with Anesthesia plan. Questions answered. Anesthesia consent signed with patient. ASA Score: 3 Day of Surgery Review of History & Physical: I have interviewed and examined the patient. I havereviewed the patient's H&P dated: There are no significant changes. Ready For Surgery From Anesthesia Perspective. documented in this encounter Miscellaneous Notes Transfer of Care - Melanie Quiros CRNA - 01/06/2020 8:48 AM CDT Anesthesia Transfer of Care Note Patient: Remedios Schofield Procedure(s) Performed: Procedure(s) (LRB): ARTHROSCOPY, KNEE, WITH PARTIAL LATERAL MENISCECTOMY (Right) ARTHROSCOPY, KNEE, WITH CHONDROPLASTY (Right) Patient location: PACU Anesthesia Type: general Transport from OR: Transported from OR on 6-10 L/min O2 by face mask with adequate spontaneous ventilation Post pain: adequate analgesia Post assessment: no apparent anesthetic complications Post vital signs: stable Level of consciousness: awake Nausea/Vomiting: no nausea/vomiting Complications: none Transfer of care protocol was followed Last vitals: Visit Vitals BP (!) 176/79 (BP Location: Right arm, Patient Position: Lying) Pulse 80 Temp 36.6 ??C (97.9 ??F) (Oral) Resp 16 Ht 5' 6 (1.676 m) Wt 123.8 kg (273 lb) LMP 01/03/2019 SpO2 100% No BMI 44.06 kg/m?? documented in this encounter Plan of Treatment Not on filedocumented as of this encounter Goals Goal Patient Goal Associated Recent Patient-Stated? 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 documented in this encounter Results ANESTHESIA INTUBATION (01/06/2020 7:39 AM CDT) Narrative Performed At Melanie Quiros CRNA ? 01/06/2020 ??7: 40 AM Intubation Performed by: Melanie Quiros CRNA Authorized by: Tonio Dodd MD Intubation: ??Induction: ??Intravenous ??Intubated: ??Postinduction ??Attempts: ??1 ??Attempted By: ??RADIO INSTALLER AUTOMOBILE ??Difficult Airway Encountered?: No ?Complications: ??None ??Airway Device: ??Intubating LMA ??Airway Device Size: ??4.5 ??Style/Cuff Inflation: ??Cuffed ??Inflation Amount (mL): ??0 ??Secured at: ??The lips ??Placement Verified By: ??Capnometry ??Complicating Factors: ??None ??Findings Post-Intubation: ??BS equal bilateral documented in this encounter Visit Diagnoses Not on filedocumented in this encounter Administered Medications Inactive Administered Medications - up to 3 most recent administrations Medication Order MAR Action Action Date Dose Rate Site carboxymethylcellulose 0.5 % Given 01/06/2020 8:34 AM 2 drops ophthalmic solution CDT As needed (PRN), Starting on Thu01/06/20 at 0834, Anesthesia Intra-op ceFAZolin injection 2 g Given 01/06/2020 7:33 AM CDT 2 g 2 g, Intravenous, Bat Person Procedure, Surgery, Starting on Thu01/06/20 at 0539, Administer 30 minutes prior to incision, Pre-op dexamethasone injection Given 01/06/2020 7:31 AM CDT 8 mg As needed (PRN), Starting on Thu01/06/20 at 0731, Anesthesia Intra-op dexMEDEtomidine injection Given 01/06/2020 7:57 AM CDT 12 mcg As needed (PRN), Starting on Thu01/06/20 at 0757, Anesthesia Intra-op electrolyte-S (ISOLYTE) New Bag 01/06/2020 7:55 AM CDT Continuous PRN, Starting on Thu01/06/20 at 0755, Anesthesia Intra-op fentaNYL injection Given 01/06/2020 7:54 AM CDT 50 mcg As needed (PRN), Starting on Thu01/06/20 at 0724, Anesthesia Intra-op Given 01/06/2020 7:24 AM CDT 100 mcg glycopyrrolate (PF) injection Given 01/06/2020 7:25 AM CDT 0.2 mg As needed (PRN), Starting on Thu01/06/20 at 0725, Anesthesia Intra-op ketamine in 0.9 % sod chloride 50 mg/5 mL (10 Given 7:25 AM CDT 20 mg mg/mL) injection As needed (PRN), Starting on Thu01/06/20 at 0725, Anesthesia Intra-op lidocaine (cardiac) injection Given 01/06/2020 7:25 AM CDT 100 mg As needed (PRN), Starting on Thu01/06/20 at 0725, Anesthesia Intra-op midazolam injection Given 01/06/2020 7:21 AM CDT 2 mg Intravenous, As needed (PRN), Starting on Thu01/06/20 at 0721, Anesthesia Intra-op ondansetron injection Given 01/06/2020 8:32 AM CDT 4 mg As needed (PRN), Starting on Thu01/06/20 at 0832, Anesthesia Intra-op propofol (DIPRIVAN) 10 mg/mL infusion Given 01/06/2020 7:55 AM CDT 50 mg As needed (PRN), Starting on Thu01/06/20 at 0725, Anesthesia Intra-op Given 01/06/2020 7:25 AM CDT 250 mg documented in this encounter
--- OUTSIDE RECORDS SUMMARY | 2020-04-15 13:28 | XMS_ITS | Encounter Summary ---
:1975 Author Organization [facility] and It s Subsidiaries and Affiliates Address [address] [place] [address] Care Team Providers Name Role Phone GENTRY Braswell Unavailable Unavailable MD Romario Primary Care Provider gina Moralez II, MD, F. Unavailable Maggy Agustin MD Unavailable Napoleon Loyola MA Unavailable Unavailable Encounter Details Date Type Department Care Team Description 01/05/2020 Telephone [facility] B - Sports Med 1st Darcie Diaz MA Fl [address] [place], [place] [phone] Band Edger: Karlene Arroyo Social History Tobacco Use Types [...] or relatives? How often do you attend religious or 1 to 4 times per year 10/08 nondenominational services? Do you belong to any clubs or No 10/30/2018 organizations such as religious groups, unions, fraternal or athletic groups, or [...] Telephone Encounter - Ernie Diaz MA - 01/05/2020 11:44 AM Lizzy for patient for surgery arrival time (5:30AM) and location ([facility]) for surgery tomorrow. Advised to return call if she had any questions. documented in this encounter Plan of Treatment Not on filedocumented as of this encounter Goals Goal Patient Goal Associated Recent Patient-Stated? 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 Reduce portion size Diet No Cutur a Precious DIET - Meal Planning Diet No Cutu raPrecious Note: Your goal is to incorporate meal plannin g in your daily routine. Reduce portions Diet No Katie, C hristina Meal plan Diet No Katie Marco A noah Exercise at least 150 minutes per week. Exercise No Precious Wilson Note: Your goal is to increase exercise routin e and start Spin Classes next week. documented as of this encounter Visit Diagnoses Not on filedocumented in this encounter
--- OUTSIDE RECORDS SUMMARY | 2020-04-15 13:28 | XMS_ITS | Encounter Summary ---
:1975 Author Organization [facility] and It s Subsidiaries and Affiliates Address [address] [place] [address] Care Team Providers Name Role Phone GENTRY [...] type [M23.200] Rui Ferrera Elmh Periop Procedures [place] KNEE SCOPE SINGLE MENISECECTOMY ARTHROSCOPY, KNEE, WITH MENISCECTOMY Services [address] [place] [address] [address] [place], [place] Phone: [phone] Phone: Encounter Details Date Type Department Care Team Description 01/06/2020 Surgery [place] Rui Ferrera MD ARTHROSCOPY, KNEE, WITH - [place] [address] PARTIAL LATERAL [address] MENISCECTOMY [place] 1ST FLOOR [facility] Cleo Kyle [place] [address] [address] [place] [address] [phone] Social History Tobacco Use Types Packs/Day Years [...] or relatives? How often do you attend quaker or 1 to 4 times per year 10/08 hindu services? Do you belong to any clubs or No 10/30/2018 organizations such as quaker groups, unions, fraternal or athletic groups, or [...] Sign Reading Time Taken Comments Blood Pressure 178/87 01/06/2020 9:00 AM CDT Pulse 73 01/06/2020 9:00 AM CDT Temperature 36.8 ??C (98.3 ??F) 01/06/2020 8:45 AM CDT Respiratory Rate 15 01/06/2020 9:00 AM CDT Oxygen Saturation 96% 01/06/2020 9:00 AM CDT Inhaled Oxygen Concentration - - [...] be awakened Date Last Reviewed: 12/25/2015 ?? [phone] [employer]. [address] [place] [address]. All rights reserved. This information is not [...] interact with your prescription medicines or other kjkb-eti-bkkagwa (OTC) medicines. Some prescription medicines haveacetaminophen and [...] understand the information, ask your pharmacist or german hospital provider to explain it to you [...] these medicines. Date Last Reviewed: 02/07/2016 ?? [phone] [employer] [place] [address]. All rights reserved. This information is not [...] to call your physician or the hospital contact acid plant operator helper if you have any questions, and they will be happy to assist you. [facility] Anesthesia Department [address] [place], [place] [address] [place] [phone] Wound Check After Surgery: Bleeding Surgery involves [...] diarrhea Date Last Reviewed: 12/03/2014 ?? [employer]. [address] [place] [address]. All rights reserved. This information is not [...] skin Date Last Reviewed: 12/03/2014 ?? [employer]. [address] [place] [address]. All rights reserved. This information is not intended as a substitute for professional medical care. Always follow your healthcare professional's instructions. documented in this encounter Medications at Time of Discharge Medication Sig Dispensed Refills Start Date End Date aspirin (ECOTRIN) 81 MG EC Take 1 tablet (81 28 tablet 0 tabletIndications: Old mg total) by mouth tear [...] monitor. documented in this encounter H&P Notes Rno Goldstein PA-C - 01/06/2020 6:35 AM CDT [...] week Gets together: Twice a week Attends hindu service: 1 to 4 times per year [...] POD#1-3. She is doing physical therapy at [facility]. POST OP CARE: [...] of the current policies and procedures of [facility] and the government regarding the pandemic and [...] Ferrera MD - 01/06/2020 12:15 PM CDT [facility] OPERATIVE REPORT ORTHOPAEDIC SURGERY PROVIDER: DR. Janeth FERRERA PATIENT INFORMATION Remedios Schofield 44 y.o. female 1975 LOCATION: [facility] DATE OF PROCEDURE: 01/06/2020 PREOPERATIVE DIAGNOSES: Right 1. knee lateral??meniscus tear 2. knee chondromalacia ?? POSTOPERATIVE DIAGNOSES: Right 1. knee lateral??meniscus tear 2. knee chondromalacia 3. 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 PROCEDURE PERFORMED: Right 1. knee arthroscopic partial lateral meniscectomy (CPT 64896)? 2. knee arthroscopic limited synovectomy (CPT 38184) 3. knee arthroscopic chondroplasty Surgeon(s) and Role: [...] 01/06/2020 11:30 AM CDTPt awaiting return of [facility] paperwork. 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) Take at least Blood No Cutura, one BP reading Pressure Precious per week at various times of the day Maintain a low Diet No Cutura, sodium diet Precious Note: [employer] (AHA) guideli francisco recommend less [...] Intravenous, Continuous, at 125 mL/hr, Starting on 10/30/20 at 0545, Pre-op acetaminophen tablet 1,000 mg Given 01/06/2020 6:14 AM CDT 1,000 mg 1,000 mg, Oral, Once pre-op, On Thu01/06/20 at 0545, For 1 dose, Pre-op ceFAZolin injection 2 g Given 01/06/2020 7:33 AM CDT 2 g 2 g, Intravenous, Emt B Procedure, Surgery, Starting on Thu01/06/20 at 0539, Administer 30 minutes prior to incision, Pre-op celecoxib capsule 400 mg Given 01/06/2020 6:25 AM CDT 400 mg 400 mg, Oral, Once, On Thu01/06/20 at 0545, For 1 dose, Pre-op EPINEPHrine injection Given 01/06/2020 7:57 AM CDT 9 mg Righ t Knee As needed (PRN), Starting on Thu01/06/20 at 0757, Intra-op fentaNYL injection 25 mcg Given 01/06/2020 9:09 [...] ointment Given 01/06/2020 6:15 AM CDT Nasal, Emt B Procedure, surgery, Starting on Thu01/06/20 at 0539, Apply to both nares prior to procedure, Pre-op oxyCODONE immediate release tablet 5 mg Given 01/06/2020 11:49 AM CDT 5 mg 5 mg, Oral, Every 3 hours PRN, moderate pain 2-5/10 pain scale, Starting on Thu01/06/20 at 0842, PACU Given 01/06/2020 9:08 AM CDT 5 mg kwsuaaywgzv-dik-wnocnf-ketorol (DAPHNE) Given 01/06/2020 7:58 AM 20 mLs Right Knee 2.46-0.005- 0.0008-0.3mg/mL solution CDT Syrg As needed (PRN), Starting on Thu01/06/20 at 0758, Intra-op sodium chloride 0.9% flush 10 mL 10 mL, Intravenous, As needed (PRN), Libia e Care, Starting on Thu01/06/20 at 0906, PACU documented in this encounter Active and Recently Administered Medications Times are shown in CDT. Scheduled Medication Order 01/04/2020 01/05/2020 01/06/2020 acetaminophen tablet 1,000 mg (COMPLETED) 06 (Given - Provider: Ramirez Peacock, DIANDRA) 1,000 mg, Oral, Once pre-op, Thu01/06/20 at 0545, For 1 dose, P re-op celecoxib capsule 400 mg (COMPLETED) 06 (Given - Provider: Ramirez Peacock, RN) 400 mg, Oral, Once, Thu01/06/20 at 0545, For 1 dose, Pre-op Continuous Medication Order 01/04/2020 01/05/2020 01/06/2020 0.9% NaCl infusion 0614 (New Ba g - Provider: Ramirez Peacock, RN)0755 (Stopped - Provider: Melanie Quiros CRNA) Intravenous, Continuous, at 125 mL/hr, Starting Thu01/06/20 at 0545, Pre-op PRN Medication Order 01/04/2020 01/05/2020 01/06/2020 ceFAZolin injection 2 g 0733 (Gi manjula - Provider: Melanie Quiros CRNA) 2 g, Intravenous, Emt B Procedure, Jacqueline kyle, Starting Thu01/06/20 at 0539, Administer 30 minutes prior to incision, Pre-op EPINEPHrine injection (CANCELED) 0757 (Given - Provider: Rui Ferrera MD - Comment: 3 mg in each bag of 3000 ml normal saline) As needed (PRN), Starting Thu01/06/20 at 0757, Intra-op fentaNYL injection 25 mcg (COMPLETED) 0854 (Given - Provider: Keyla Vines RN)0859 (Given - Provider: Keyla Vines RN)0904 (Given - Provider: Keyla Vines RN)0909 (Given - Provider: Keyla Vines RN) 25 [...] ointment 0615 (Giv en - Provider: Ramirez Peacock RN) Nasal, Emt B Procedure, surgery, Start ing Thu01/06/20 at 0539, Apply to both nares prior to procedure, Pre-op oxyCODONE immediate release tablet 5 mg 0908 (Given - Provider: Keyla Vines RN)1149 (Given - Provider: Keyla Vines RN) 5 mg, Oral, Every 3 hours PRN, moderate pain 2-5/10 pain scale, Starting Thu01/06/20 at 0842, PACU obwtzshlyou-jyh-slgrxm-ketorol (DAPHNE) 2. 46-0.005- 0.0008-0.3mg/mL solution Syrg (CANCELED) 0758 (Given - Provid er: Rui Ferrera MD - Comment: given to sterile field) As needed (PRN), Starting Thu01/06/20 at 0758, Intra-op sodium chloride 0.9% flush 10 mL 10 mL, Intravenous, As needed (PRN), Libia Rojas, Starting Thu01/06/20 at 0906, PACU documented in this encounter
--- OUTSIDE RECORDS SUMMARY | 2020-04-15 13:28 | XMS_ITS | Encounter Summary ---
:1975 Author Organization [facility] and It [employer] Subsidiaries and Affiliates Address [address] [place] [address] Care Team Providers Name Role Phone GENTRY Braswell Unavailable Unavailable MD Romario Primary Care Provider gina Moralez II, MD, F. Unavailable Maggy Agustin MD Unavailable Napoleon Loyola MA Unavailable Unavailable Encounter Details Date Type Department Care Team Description 01/05/2020 Orders Only Brit Mcconnell B - Ron Goldstein, Old tear of lateral Sports Med [facility] PA-C meniscus of right [address] [facility] knee, unspecified [place], [place] tear type (Primary [id number] Dx) [phone] Director Of Recruitment: Karlene Geo Arroyo Social History Tobacco Use Types Packs/Day [...] 1 to 4 times per year 10/08 confucianism services? Do you belong to any clubs [...] documented as of this encounter Progress Notes Ron Goldstein PA-C - 01/05/2020 1:21 PM CDTPost op meds sent in as they were sent to the wrong pharmacy. [facility] [place] [facility] Ron Goldstein PA-C documented in this encounter Plan of Treatment Not on filedocumented as of this encounter Goals Goal Patient Goal Associated Recent Patient-Stated? 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 Reduce portion size Diet No Precious Hernandez DIET - Meal Planning Diet No Cutu raPrecious Note: Your goal is to incorporate meal plannin g in your daily routine. Reduce portions Diet No Katie C hristina Meal plan Diet No Marco A Wilson Exercise at least 150 minutes per week. Exercise No Precious Wilson Note: Your goal is to increase exercise routin e and start Spin Classes next week. documented as of this encounter Visit Diagnoses Diagnosis Old tear of lateral meniscus of right kn ee, unspecified tear type - Primary documented in this encounter
--- OUTSIDE RECORDS SUMMARY | 2020-04-15 13:28 | XMS_ITS | Encounter Summary ---
:[address] [facility] and It s Subsidiaries and Affiliates Address [address] [place] [address] Care Team Providers Name Role Phone GENTRY [...] Outpatient PA-C Services - [facility] [address] [facility] [address], [place] [address] [place], Phone: [place] [phone] Phone: Encounter Details Date Type Department Care Team Description 01/12/2020 Clinical Support Brit Gallo - Devendra Goldstein, PA-C [address] [place] [address] Acute pain of right knee; Rehab 1st Fl Eric Mccormack, PT Gait abnormality; [address] Decreased r laverne of motion; [place] [address] Social History Tobacco Use Types [...] 1 to 4 times per year 10/08 holiness services? Do you belong to any clubs [...] encounter Progress Notes Eric Mccormack, PT - 01/12/2020 12:00 PM CST Physical Therapy Daily Treatment Note Name: [facility] Number: [id number] Therapy Diagnosis: Encounter Diagnoses Name Primary? Acute pain of right knee ??? Gait abnormality ??? Decreased range of motion ??? Weakness Physician: Ron Goldstein PA* Visit Date: 01/12/2020 Physician Orders: PT Eval and Treat Medical Diagnosis from Referral: M23.200 (ICD-10-CM) - Old tear of lateral meniscus of right knee, unspecified tear type Evaluation Date: 01/09/2020 Authorization Period Expiration: 03/08/2020 Plan of Care Expiration: 03/08/2020 Visit # / Visits authorized: Time In: 1205 Time Out: 1252 Total Billable Time: 47 minutes Precautions: Standard Subjective Pt reports: She has been doing her exercises and has done very well with them. She felt a pop in thefront of her knee (indicating the infrapatellar region) when getting out of bed and had some discomfort for about 10 minutes, but no pain since. She was able to safely step into and out of her walk-in shower with her crutches. She was compliant with home exercise program. Response to previous treatment: Improved knee extension Functional change: Improved ability to safely ambulate with axillary crutches. Pain: 06/16 Location: Site of incision portals. Objective Daily Measurements: Observation: Incision sites are covered with waterproof bandage with no visible signs of infection in the region. Pat presented to PT today wearing EDISON hose. Gait: Ambulates with axillary crutches x2. Self-selects NWB on involved LE. ?? Knee Active Range of Motion: ?? Right Left Flexion 60 125 Extension +5 -5 ?? Knee Passive Range of Motion: ?? Right Left Flexion 95 125 Extension -5 -5 ?? Daily Treatment Remedios received therapeutic exercises to develop strength, endurance, ROM and flexibility for 21 minutes including: Knee Ext LLLD Heel Prop x5 mins Heel slides with towel under knee to A 5m Quad Sets 3m Ankle PF resisted gtb 20x Remedios received the following manual therapy techniques: were applied to the: R Knee for 14 minutes, including: Fat pad and patellar mobilization PROM ROM check AP Tib/Fem Glides Remedios participated in dynamic functional therapeutic activities to improve functional performance for 00 minutes, including: Remedios participated in neuromuscular re-education activities to improve: Balance, Coordination, Kinesthetic, Sense, Proprioception and timing/activation for 12 minutes. The following activities were included: Standing Weight Shifts w/quad/glute activation 5x30 Part/Whole practice gait mechanics with axillar crutches x9 mins Home Exercises and Patient Education Provided Education [...] patient instructions for exercises given. Assessment Remedios responded extremely well to previously prescribed interventions indicated by improved quad activation and knee extension ROM. Reviewed self-patellar and fat pad mobilizations for HEP today. Patient demo'd improved tolerance to weight bearing and understanding of timing/activation of quads/glutesreporting ~25% weight bearing. Patient able to ambulate with touch down weight bearing with Axillarycrutches at the conclusion of today's treatment. Remedios is progressing well towards her [...] to achieve TKE with quad set. ?? Dishwasher Preparer Goals: 10 weeks 1. Pt will be [...] and with emphasis on regaining quad control/strength. Assess for rec bike tolerance next visit. Eric Mccormack PT , DPT IFIED FINANCIAL PLANNER documented in this encounter Plan of Treatment Not on filedocumented as of this encounter Goals Goal Patient Goal Associated Recent Patient-Stated? 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
--- OUTSIDE RECORDS SUMMARY | 2020-04-15 13:28 | XMS_ITS | Encounter Summary ---
:1975 Author Organization [facility] and It s Subsidiaries and Affiliates Address [address] [place] [address] Care Team Providers Name Role Phone GENTRY [...] Outpatient PA-C Services - [facility]hab [address] [facility] [address], [place] [address] [place], Phone: [place] [phone] Phone: Encounter Details Date Type Department Care Team Description 01/23/2020 Clinical Support Brit Gallo - Devendra Goldstein, PA-C [address] [place] [address] Acute pain of right knee; Rehab 1st Fl Eric Mccormack, PT Gait abnormality; [address] [place] Decreased r laverne of motion; [place] [address] Social History Tobacco Use Types [...] or relatives? How often do you attend jehovah's witness or 1 to 4 times per year 10/08 taoism services? Do you belong to any clubs or No 10/30/2018 organizations such as jehovah's witness groups, unions, fraternal or athletic groups, or [...] Patient Instructions Patient InstructionsEric Mccormack, PT - 01/23/2020 10:00 AM TRAFFIC OPERATIONS ENGINEER FIC OPERATIONS ENGINEER documented in this encounter Progress Notes Eric Mccormack, PT - 01/23/2020 10:00 AM CST Physical Therapy Daily Treatment Note Name: [facility] Number: [id number] Therapy Diagnosis: Encounter Diagnoses Name Primary? Acute pain of right knee ??? Gait abnormality ??? Decreased range of motion ??? Weakness Physician: Ron Goldstein PA* Visit Date: 01/23/2020 Physician Orders: PT Eval and Treat Medical Diagnosis from Referral: M23.200 (ICD-10-CM) - Old tear of lateral meniscus of right knee, unspecified tear type Evaluation Date: 01/09/2020 Authorization Period Expiration: 03/08/2020 Plan of Care Expiration: 03/08/2020 Visit # / Visits authorized: Time In: 1001 Time Out: 1103 Total Billable Time: 57 minutes Precautions: Standard Subjective Pt reports: Her knee is feeling well. Pleased with ROM progress at follow up with ortho office, was and instructed to continue to work toward FWB w/ambulation. She was compliant with home exercise program. Response to previous treatment: Improved knee extension Functional change: Improved ability to safely ambulate with axillary crutches. Pain: 2 Location: Site of incision portals. Objective Daily Measurements: Observation: Incision sites are covered with waterproof bandage with no visible signs of infection in the region. Pat presented to PT today wearing EDISON hose. Gait: Ambulates with axillary crutches x2 w/step through gait pattern, heel strike at IC, and significantly improved fknee flexion and MTP extension. Equal stance phase time bilaterally. ?? Knee Active Range of Motion: ?? Right Left Flexion 100 125 Extension 0 -5 ?? Knee Passive Range of Motion: ?? Right Left Flexion 110 125 Extension -5 -5 ?? Daily Treatment Remedios received therapeutic exercises to develop strength, endurance, ROM and flexibility for 29 minutes including: Rec [place] x6 mins to improve mobility and tolerance to ADL's/IADL related activity. Heel slide leg press w/power band with TKE pop 2x15 DL Shuttle Press 62# 3x8 SL Shuttle Press #37 4x5 ea Remedios received the following manual therapy techniques: were applied to the: R Knee for 6 minutes, including: Fat pad and patellar mobility assessment ROM check Remedios participated in dynamic functional therapeutic activities to improve functional performance for 16 minutes, including: Whole/Part practice ambulation with single axillary crutch and SPC 4x60ft 4 Box Step ups 4x5 Remedios participated in neuromuscular re-education activities to improve: Balance, Coordination, Kinesthetic, Sense, Proprioception and timing/activation for 12 minutes. The following activities were included: Standing Marches at table w/quad/glute activation 5x30 Standing reactive TKE x5 mins Home Exercises and Patient Education Provided Education provided: - Weight bearing tolerance, tissue healing timelines, importance of regaining TKE and quad control and restoring normal gait mechanics. - Attempt FWB in safe area at home this week as comfortable such as near kitchen counter. Written Home Exercises Provided: New HEP provided per patient isntructions. Exercises were reviewed and Remedios was able to demonstrate them prior to the end of the session. Remedios demonstrated good understanding of the education provided. See EMR under patient instructions for exercises given. Assessment Pt continues to demo improved gait and tolerated ambulation with a single axillary crutch or SPC extremely well with equal stance phase time and no gross change from using 2 AD's. Pt also demo's significantly improved volitional quad control and ability to achieve TKE with quad set and significant improvement with CKC activities including shuttle squats, step ups, and marches. Remedios is progressing well towards her goals. [...] to achieve TKE with quad set. ?? Half-Way Goals: 10 weeks 1. Pt will be [...] restrictions related to R knee pain. Plan Anticipate progression to ambulation without AD over the next week. Continue to progress [place] and CKCactivities as indicated. Eric Mccormack PT , DPT FIC OPERATIONS ENGINEER documented in this encounter Plan of Treatment Not on filedocumented as of this encounter Goals Goal Patient Goal Associated Recent Patient-Stated? Author Type Problems Progress Blood Pressure Blood 197/101 Yes Myochsner, < 130/80 Pressure (02/21/2020 System Messag e 10:15 AM TRAFFIC OPERATIONS ENGINEER) Take at least Blood No Cutura, one BP reading Pressure Precious per week at various times of the day Maintain a low Diet No Cutura, sodium diet Precious Note: [place] Heart Association (AHA) guideli francisco recommend less [...]
--- OUTSIDE RECORDS SUMMARY | 2020-04-15 13:28 | XMS_ITS | Encounter Summary ---
:1975 Author Organization [facility] and It [employer] Subsidiaries and Affiliates Address [address] [place] [address] Care Team Providers Name Role Phone GENTRY Braswell Unavailable Unavailable MD Romario Primary Care Provider gina Moralez II, MD, F. Unavailable Maggy Agustin MD Unavailable Napoleon Loyola MA Unavailable Unavailable Reason for Visit Reason Comments Post-op Evaluation Pain Encounter Details Date Type Department Care Team Description 01/18/2020 Office Visit Brit Mcconnell B - Ron Goldstein r of lateral meniscus of right knee, unspecified tear type (Primary Dx); Sports Med 1st Fl J., NATALIO Surgery follow-up examination [address] [place] [id number] [phone] Machine Shorthand Reporter: Karlene Geo Arroyo Social History Tobacco Use [...] or relatives? How often do you attend taoism or 1 to 4 times per year 10/08 congregation services? Do you belong to any clubs or No 10/30/2018 organizations such as taoism groups, unions, [employer] or athletic groups, or school groups? How [...] Sign Reading Time Taken Comments Blood Pressure 156/91 01/18/2020 2:00 PM FINISH SANDER Pulse 98 01/18/2020 2:00 PM FINISH SANDER Temperature - - Respiratory Rate - - Oxygen Saturation - - Inhaled Oxygen Concentration - - Weight 122.9 kg (271 lb) 01/18/2020 2:00 PM FINISH SANDER Height 167.6 cm (5' 6) 01/18/2020 2:00 PM FINISH SANDER Body Mass Index 43.74 01/18/2020 2:00 PM FINISH SANDER documented in this encounter Progress Notes Ron Goldstein PA-C - 01/18/2020 2:00 PM CSTS:Remedios Schofield presents for post-operative evaluation. DATE OF PROCEDURE: 01/06/2020 ? PROCEDURE PERFORMED: Right 1. knee arthroscopic partial lateral meniscectomy (CPT 26268)? 2. knee arthroscopic limited synovectomy (CPT 47794) 3. knee arthroscopic chondroplasty ?? Surgeon(s) and Role: * Rui Lux MD - Primary * Bhupinder Hebert DO - Fellow * SMA Bhupendra Remedios Schofield reports to be doing well 2wk s/p the above mentioned procedure. Denies fevers, chills, night sweats, chest pain, difficulty breathing, calf pain or tenderness. Going to PT 2[facility] at [facility]. Seeing good progress daily. Pain levels are improving. Has d/c'd pain medication.She states that overall she is doing extremely well. She denies any pain in clinic today. She is still using crutches to assist with ambulation, however she states that she will be progressing to 1 crutch starting next week. She states that she has a few days left of her aspirin prescription which she will complete. O: The incisions are healing well. No signs of infection. Sutures were removed. No significant pain or unusual tenderness. Range of motion in clinic today: Patient is able to obtain full extension,she is able to obtain flexion to 100?? without any pain. A/P: Steri-Strips applied over incision sites, advised to keep these dry for 5 more days. Slowly wean off of crutches. Finish aspirin prescription. Plan to follow the rehab plan as previously outlined. RTC in [address] Lux for 6 week post op visit. POSTOPERATIVE PLAN: Patient may weight bear as tolerates on crutches. Full range of motion to tolerance. Will start physical therapy right away. ASA 81 mg BID x 2 weeks for DVT prophylaxis. documented in this encounter Plan of Treatment Not on filedocumented as of this encounter Goals Goal Patient Goal Associated Recent Patient-Stated? Author Type Problems Progress Blood Pressure Blood 197/101 Yes Myochsner, < 130/80 Pressure (02/21/2020 System Messag e 10:15 AM FINISH SANDER) Take at least Blood No Cutura, one BP reading Pressure Precious per week at various times of the day Maintain a low Diet No Cutura, sodium diet Precious Note: [place] Heart Association (AHA) guideli francisco recommend less than 2000mg of dietary salt per day. Reduce portion size Diet No Belinda aPrecious DIET - Meal Planning Diet No [...] kn ee, unspecified tear type - Primary Surgery follow-up examination Follow-up examination, following unspeci fied surgery documented in this encounter
--- OUTSIDE RECORDS SUMMARY | 2020-04-15 13:29 | XMS_ITS | Encounter Summary ---
:1975 Author Organization [facility] and [employer] Subsidiaries and Affiliates Address [address] [place] [address] Care Team Providers Name Role Phone GENTRY Braswell Unavailable Unavailable MD Romario Primary Care Provider gina Moralez II, MD, F. Unavailable Maggy Agustin MD Unavailable Napoleon Loyola MA Unavailable Unavailable Encounter Details Date Type Department Care Team Description 12/15/2019 Telephone [facility] Nam Agustin MD [address] [place] [address] [address] [place] [address] Social History Tobacco Use Types Packs/Day Years [...] or relatives? How often do you attend anabaptist or 1 to 4 times per year 10/08 bahai services? Do you belong to any clubs or No 10/30/2018 organizations such as anabaptist groups, unions, [employer] or athletic groups, or school groups? How [...] this encounter Miscellaneous Notes Telephone Encounter - Nam Agustin MD - 12/15/2019 12:17 PM CDT Thanks She can proceed with her non-cardiac surgery with acceptable risks ZN documented in this encounter Plan of Treatment Not on filedocumented as of this encounter Goals Goal Patient Goal Associated Recent Patient-Stated? 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 Reduce portion size Diet No Belinda aPrecious DIET - Meal Planning Diet No Luzu [...]
--- OUTSIDE RECORDS SUMMARY | 2020-04-15 13:29 | XMS_ITS | Encounter Summary ---
:1975 Author Organization [facility] and It s Subsidiaries and Affiliates Address [address] [place] [address] Care Team Providers Name Role Phone GENTRY Braswell Unavailable Unavailable MD Romario Primary Care Provider gina Moralez II, MD, F. Unavailable Maggy Agustin MD Unavailable Napoleon Loyola MA Unavailable Unavailable Encounter Details Date Type Department Care Team Description 10/24/2019 Hospital Encounter [facility] Theresa Doss Tea r of meniscus of [place]-Prem JOSEPH right knee as [address] current injury, [address] unspecified [id number] [address] [place] meniscus, [address] unspecified tear [phone] type, initial [phone] encounter (Fax) Social History Tobacco Use Types Packs/Day Years [...] 10/30/2018 organizations such as taoism groups, unions, fraternal or athletic groups, or [...] Sig Dispensed Refills Start Date End Date flecainide (TAMBOCOR) 150 Take 1 tablet (150 [...] total) by mouth Essential hypertension once daily. aspirin (ECOTRIN) 81 MG EC Take 81 mg by 0 01/06/2020 tablet mouth. dicyclomine (BENTYL) 20 mg Take 1 tablet (20 20 tablet 0 11/18/2019 tablet mg total) by mouth 2 (two) times daily. As needed abd cramping naproxen (NAPROSYN) 500 MG Take 1 tablet (500 14 tablet 0 0 10/30/2018 01/06/2020 tablet mg total) by mouth 2 (two) times daily with meals. ondansetron (ZOFRAN-ODT) 4 Take 1 tablet (4 mg 10 tablet 0 08/01/2019 01/06/2020 MG TbDL total) by mouth every 8 (eight) hours as needed (n/v). oxyCODONE-acetaminophen Take 1 tablet by 20 tablet 0 201801/06/2020 (PERCOCET) 10-325 mg per mouth every 6 (six) tablet hours as needed. documented as of this encounter Progress Notes Theresa Doss MD - 10/24/2019 3:30 PM CDTHi Remedios, See your knee report, we are still getting the MRI but this has been amended to show some inflammation in the knee cap but no fracture or fluid Theresa Doss MD Theresa Sands MD - 10/24/2019 3:30 PM CDTYour x ray shows your hardware is intact. I was not aware you had knee surgery. It may be best to see ortho before getting an MRI as they may want a different kind of test. Do you have an orthopedic, if so let me know Theresa Doss MD documented in this encounter Plan of Treatment Not on filedocumented as of this encounter Goals Goal Patient Goal Associated Recent Patient-Stated? 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 Reduce portion size Diet No Cutur a, Precious DIET - Meal Planning Diet No Cutu ra, Precious Note: Your goal is to incorporate [...] Name Priority Date/Time Associated Diagnosis Comme nts XR KNEE 1 OR 2 VIEW Routine 10/24/2019 3:16 PM Tear of menisc us of Results for this RIGHT CDT right knee as procedure are in current injury, the results unspecified section. meniscus, unspecified tear type, initial encounter documented in this encounter Results X-Ray Knee 1 or 2 View Right (10/24/2019 3:16 PM CDT) Specimen Addenda Addendum by Shar Kimbrough Jr., MD on 10/27/2019 8:32 AM The original report was dictated in erro r ??Please disregard. FINDINGS: FEMOROTIBIAL JOINT SPACES ARE PRESERVED. ??THERE IS SOME FLATTENING OF THE UNDERSURFACE OF THE PA TELLA COMPATIBLE WITH CHONDROMALACIA. ??NO CONVINCING EVIDENCE OF JOINT EFFUSION. ??NO EVIDENCE OF FRACTURE. CHONDROMALACIA PATELLA Electronically signed by: Shar English Jr Date: 10/27/2019 Time: 08:30 Impressions Performed At [facility] Status post right TKA without gross comp lications Electronically signed by: Shar English Jr Date: 10/24/2019 Time: 15:34 Narrative Performed At EXAMINATION: [facility] XR KNEE 1 OR 2 VIEW RIGHT CLINICAL HISTORY: Unspecified tear of unspecified meniscus, current inju ry, right knee, initial encounter TECHNIQUE: XR KNEE 1 OR 2 VIEW RIGHT COMPARISON: None FINDINGS: There are post surgical changes of a recent right tota l knee arthroplasty. Hardware appears intact without peripros thetic fracture. Expected post surgical findings are seen anteriorly wi thin the soft tissues. Procedure Note Interface, Rad Results In - 10/24/2019 3:36 PM CDT EXAMINATION: XR KNEE 1 OR 2 VIEW RIGHT CLINICAL HISTORY: Unspecified tear of unspecified meniscus , current injury, right knee, initial encounter TECHNIQUE: XR KNEE 1 OR 2 VIEW RIGHT COMPARISON: None FINDINGS: There are post surgical changes of a rec ent right total knee arthroplasty. Hardware appears intact without peripros thetic fracture. Expected post surgical findings are seen anteriorly within the soft tissues. Impression: Status post right TKA without gross comp lications Electronically signed by:Shar Brewster in Date:10/24/2019 Time:15:34 Performing Organization Address City/State/ZIP Code Phon e Number [facility] n/a documented in this encounter Visit Diagnoses Diagnosis Tear of meniscus of right knee as curren t injury, unspecified meniscus, unspecified tear type, initial encounter documented in this encounter
--- OUTSIDE RECORDS SUMMARY | 2020-04-15 13:29 | XMS_ITS | Encounter Summary ---
:1975 Author Organization [facility] and It s Subsidiaries and Affiliates Address [address] [place] [address] Care Team Providers Name Role Phone GENTRY Braswell Unavailable Unavailable MD Romario Primary Care Provider gina Moralez II, MD, F. Unavailable Maggy Agustin MD Unavailable Napoleon Loyola MA Unavailable Unavailable Encounter Details Date Type Department Care Team Description [facility] 1st Darcie Diaz MA Fl [address] [place], [place] [phone] Carpenter Assembler: Karlene Arroyo Social History Tobacco Use Types [...] or relatives? How often do you attend pentecostalism or 1 to 4 times per year 10/08 yazdanism services? Do you belong to any clubs or No 10/30/2018 organizations such as pentecostalism groups, unions, fraternal or athletic groups, or [...] Telephone Encounter - Ernie Diaz MA - 12/29/2019 4:46 PM CDT----- Message from Ron Goldstein PA-C sent at 12/29/2019 4:29 PM CDT ----- Regarding: FW: pre op asa Can you call this patient and let them know that she can stop her aspirin 48 hours prior to surgery then restart 24 hours after? 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
--- OUTSIDE RECORDS SUMMARY | 2020-04-15 13:29 | XMS_ITS | Encounter Summary ---
:1975 Author Organization [facility] and [facility] [address] Subsidiaries and Affiliates Address [address] [place] [address] Care Team Providers Name Role Phone GENTRY Braswell Unavailable Unavailable MD Romario Primary Care Provider gina Moralez II, MD, F. Unavailable Maggy Agustin MD Unavailable Napoleon Loyola MA Unavailable Unavailable Reason for Visit Reason Comments Blood Pressure Check Encounter Details Date Type Department Care Team Description 11/07/2019 Clinical Support [place] [facility] Se[facility] rowe hypertension Medicine (Primary Dx) [address] [facility] [place] [phone] Senior Health Educator: Nirmal Zheng Social History Tobacco Use Types Packs/Day Years [...] 1 to 4 times per year 10/08 yazidi services? Do you belong to any clubs [...] Sign Reading Time Taken Comments Blood Pressure 138/90 11/07/2019 8:20 AM CDT Pulse 68 11/07/2019 8:20 AM CDT Temperature - - Respiratory Rate - - Oxygen Saturation 97% 11/07/2019 8:20 AM CDT Inhaled Oxygen Concentration - - Weight - - Height - - Body Mass Index - - documented in this encounter Progress Notes Dona Hernández LPN - 11/07/2019 8:00 AM CDT Remedios Schofield 44 y.o. female is here today for Blood Pressure check. History of HTN yes. Review of patient's allergies indicates: No Known Allergies Creatinine Date Value Ref Range Status 10/24/2019 0.8 0.5 - 1.4 mg/dL Final Sodium Date Value Ref Range Status 10/24/2019 140 136 - 145 mmol/L Final Potassium Date Value Ref Range Status 10/24/2019 4.0 3.5 - 5.1 mmol/L Final ] Patient verifies taking blood pressure medications on a regular basis at the same time of the day. Current Outpatient Medications: ??? aspirin (ECOTRIN) 81 MG EC tablet, Take 81 mg by mouth., Disp: , Rfl: ??? flecainide (TAMBOCOR) 150 MG Tab, Take [...] Disp: 14 tablet, Rfl: 0 ??? ondansetron (ZOFRAN-ODT) 4 MG TbDL, Take 1 tablet (4 mg total) by mouth every 8 (eight) hours as needed (n/v)., Disp: 10 tablet, Rfl: 0 ??? oxyCODONE-acetaminophen (PERCOCET) 10-325 mg per tablet, Take 1 tablet by mouth every 6 (six) hours as needed. (Patient not taking: Reported on 03/18/2019), Disp: 20 tablet, Rfl: 0 ??? spironolactone (ALDACTONE) 25 MG tablet, Take 1 tablet (25 mg total) by mouth once daily., Disp: 30 tablet, Rfl: 5 Does patient have record of home blood pressure readings no.. Last dose of blood pressure medication was taken at 6:50 this am. Patient is asymptomatic. Complains of none. Vitals: 11/07/19 0754 11/07/19 0820 BP: (!) 140/100 (!) 138/90 BP Location: Left arm Left arm Patient Position: Sitting Sitting BP Method: Large (Manual) Large (Manual) Pulse: 68 68 SpO2: 98% 97% Dr. Doss informed of nurse visit. documented in this encounter Plan of Treatment Not on filedocumented as of this encounter Goals Goal Patient Goal Associated Recent Patient-Stated? 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 Reduce portion size Diet No Cutur aMarco APrecious DIET - Meal Planning Diet No Cutu [...] as of this encounter Visit Diagnoses Diagnosis Essential hypertension - Primary documented in this encounter
--- OUTSIDE RECORDS SUMMARY | 2020-04-15 13:29 | XMS_ITS | Encounter Summary ---
:1975 Author Organization [facility] and It s Subsidiaries and Affiliates Address [address] [place] [address] Care Team Providers Name Role Phone GENTRY Braswell Unavailable Unavailable MD Romario Primary Care Provider gina Moralez II, MD, F. Unavailable Maggy Agustin MD Unavailable Napoleon Loyola MA Unavailable Unavailable Encounter Details Date Type Department Care Team Description 12/23/2019 Orders Only Brit Mcconnell B - Jose J, W Joni, Ravin t ear of lateral Sports Med 1st [place] meniscus of right [address] knee, unspecified [facility] tear type (Primary [id number] [address]ST FLOOR BUILDING B Dx) [phone] [address] Wall Insulation Sprayer: [place] [address] [phone] Social History Tobacco Use Types Packs/Day Years [...] or relatives? How often do you attend restorationist or 1 to 4 times per year 10/08 restorationism services? 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
--- OUTSIDE RECORDS SUMMARY | 2020-04-15 13:29 | XMS_ITS | Encounter Summary ---
:1975 Author Organization [facility] and It s Subsidiaries and Affiliates Address [address] [place] [address] Care Team Providers Name Role Phone GENTRY Braswell Unavailable Unavailable MD Romario Primary Care Provider gina Moralez II, MD, F. Unavailable Maggy Agustin MD Unavailable Napoleon Loyola MA Unavailable Unavailable Reason for Visit Reason Comments Labs Only Encounter Details Date Type Department Care Team Description 11/10/2019 Clinical Support [facility] - En counter for observation for suspected exposure to other biological agents ruled out; Sima Fever, unspecified fever cau se; [address] Myalgia; [place] [phone] Sore throat [phone] Social History Tobacco Use Types Packs/Day Years [...] or relatives? How often do you attend oriental orthodox or 1 to 4 times per year 10/08 adventism services? Do you belong to any clubs or No 10/30/2018 organizations such as oriental orthodox groups, unions, fraGrab Media or athletic groups, or school groups? How [...] documented as of this encounter Progress Notes Genevieve Doe MA - 11/10/2019 9:20 AM CDTEssential employee ao documented in this encounter Plan of Treatment Not on filedocumented as of this encounter Goals Goal Patient Goal Associated Recent Patient-Stated? 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 documented in this encounter Results POCT COVID-19 Rapid Screening (11/10/2019 10:06 AM CDT) Pathologist Sig nature POC Rapid COVID Negative Negative [facility] Language Path Acceptable Yes [facility] RE Specimen Nasal Swab - Nasal Swab Narrative Performed At This test utilizes isothermal nucleic ac id amplification [facility] technology to detect the SARS-CoV-2 RdRp nucleic acid segment. The analytical sensitivity (limit of det ection) is 125 genome equivalents/mL. A POSITIVE result implies infection with the SARS-CoV-2 virus; the patient is presumed to be contagious . ?? A NEGATIVE result means that SARS-CoV-2 nucleic acids are not present above the limit of detection. A NEGATIVE result should be treated as presumptive. It does not rule out the possibility of COVID-19 and should not be the sole basi s for treatment decisions. If COVID-19 is strongly suspected based on clinical and exposure history, re-testing using an alternate m olecular assay should be considered. This test is only for use under the Food and Drug Administration s Emergency Use Authoriza tion (EUA). Commercial kits are provided by [employer]. Performance characteristics of the JOHN fagane been independently verified by [facility]. The authorized Fact Sheet for Healthcare Providers and the authorized Fact Sheet for Patients of the ID NOW COVID-1 9 are available on the FDA website: https://www.fda.gov/media/169340/downloa d https://www.fda.gov/media/917993/downloa d Performing Organization Address City/State/[facility] Code Phon e Number [facility] [address] [facility] [place] [id number] documented in this encounter Visit Diagnoses Diagnosis Encounter for observation for suspected exposure to other biological agents ruled out Fever, unspecified fever cause Myalgia Unspecified myalgia and myositis Sore throat Acute pharyngitis documented in this encounter Additional Health Concerns Infection Onset Date Last Indicated Resolved Time Rule Out COVID-19 11/10/2019 11/10/2019 11/10/2019 10: 06 AM CDT documented as of this encounter
--- OUTSIDE RECORDS SUMMARY | 2020-04-15 13:29 | XMS_ITS | Encounter Summary ---
:1975 Author Organization [facility] and s Subsidiaries and Affiliates Address [address] [place] [address] Care Team Providers Name Role Phone GENTRY Braswell Unavailable Unavailable MD Romario Primary Care Provider gnia Moralez II, MD, F. Unavailable Maggy Agustin MD Unavailable Napoleon Loyola MA Unavailable Unavailable Reason for Visit Reason Comments Loss of Consciousness family member reports pt was passing out repeatedly while cleaning her bathroom with b becerra/ammonia solution. when ems arrived pt was supine on the porch, unresponsive, breathing spontaneously with her eyes wide open. awakened a little to painful stimuli and kept rep eating herself saying she was cleaning. ambulated to ems s tretcher. Auth/Cert Status Reason Specialty Diagnoses / Referred By Referred To Procedures Contact Contact Emergency Medicine Diagnoses Stroke I63.9 (ICD-10-CM) - Stroke [facility] Emergency Procedures PLACE IN OBSERVATION ADT17 - PLACE IN OBSERVATION Bess Friedman MD Department [address] [place] [address] [place] Phone: [phone] Phone: Fax: Encounter Details Date Type Department Care Team Description [facility] [address] [place] [address] Chemical exposure (Primary Dx); 11/22/2019 Jamar-Bess Mcarthur MD [address] [place] [address] Encephalopathy; [address]nie MariahhuyenCk, DO [address] [place] [address] AMS (altered mental status) [place] [id number] Social History Tobacco Use Types Packs/Day Years [...] or relatives? How often do you attend methodist or 1 to 4 times per year 10/08 mormonism services? Do you belong to any clubs or No 10/30/2018 organizations such as methodist groups, unions, fraternal or athletic groups, or [...] minutes do you engage in exercise at is 60 min 11/03/2018 level? Stress Answer [...] Sign Reading Time Taken Comments Blood Pressure 127/60 11/22/2019 11:48 AM CDT Pulse 74 11/22/2019 11:49 AM CDT Temperature 36 ??C (96.8 ??F) 11/22/2019 11:48 AM CDT Respiratory Rate 20 11/22/2019 11:48 AM CDT Oxygen Saturation 97% 11/22/2019 11:48 AM CDT Inhaled Oxygen Concentration - - Weight 120.7 kg (266 lb) 11/22/2019 8:25 AM CDT Height 167.6 cm (5' 6) 11/22/2019 8:25 AM CDT Body Mass Index 42.93 11/22/2019 8:25 AM CDT documented in this encounter Discharge Summaries Ck Hanks DO - 11/22/2019 1:20 PM CDT [facility] Medicine Discharge Summary Patient Name: Remedios Schofield Admission Date: 11/21/2019 Hospital Length of Stay: 0 days Discharge Date and Time: No discharge date for patient encounter. Attending Physician: Ck Hanks DO Discharging Provider: Ck Hanks DO Primary Care Provider: Theresa Doss MD HPI: Remedios Schofield is a 44 y/o F with PMH of Afib, hypertension, brought in by EMS due to a syncopal episode at home liking due to mixing of ammonia and bleach at home. EMS reported patient regained consciousness briefly and walked to her porch before she loss consciousness again, unresponsive but breathing spontaneously. Then intermittently conscious and repeating I was cleaning. Patient arrived ED unresponsive, BP 168/103, RR 33, SpO2 of 97% . CXR unremarkable, MRA head with noacute findings, CTA head reported no acute intracranial findings. No abnormal intracranial enhancement. Overall unremarkable CTA head and neck examination. * No surgery found * Hospital Course: 11/21 pt is feeling well asking to go home, doing well, no focal neurologic deficit. Her imaging are WNL. Her 2 d echo showed grade 2 DCHF probablu secondary to A Fib. Consults: Consults (From admission, onward) Status Ordering Provider Inpatient consult to Registered Dietitian/Provisioning Specialist Once Provider: (Not yet assigned) Acknowledged BESS FISHER Inpatient consult to Telemedicine-Stroke Once Provider: Herminia Wells MD Acknowledged TERE LUKE IP consult to case management/social work Once Provider: (Not yet assigned) Acknowledged BESS FISHER. No new Assessment & Plan notes have been filed under this hospital service since the last note was generated. Service: Hospital Medicine Final Active Diagnoses: Diagnosis Date Noted POA ??? PRINCIPAL PROBLEM: Stroke [I63.9] 11/21/2019 Yes ??? Rayna coma scale total score 3-8 [R40.2430] 11/22/2019 Yes ??? AMS (altered mental status) [R41.82] 11/21/2019 Yes ??? Hypokalemia [E87.6] 11/21/2019 Yes ??? Prediabetes [R73.03] 11/04/2018 Yes ??? Morbid obesity [E66.01] 03/26/2018 Yes ??? Essential hypertension [I10] 11/27/2016 Yes ??? A-fib [I48.91] Yes Problems Resolved During this Admission: Discharged Condition: stable Disposition: Home or Self Care Follow Up: Follow-up Information Theresa Doss MD In 3 days. Specialty: Internal Medicine Contact information: [address] [address] Patient Instructions: Diet Cardiac Notify your health care provider if you experience any of the following: temperature >100.4 Notify your health care provider if you experience any of the following: persistent nausea and vomiting or diarrhea Notify your health care provider if you experience any of the following: severe uncontrolled pain Notify your health care provider if you experience any of the following: difficulty breathing or increased cough Notify your health care provider if you experience any of the following: severe persistent headache Notify your health care provider if you experience any of the following: worsening rash Notify your health care provider if you experience any of the following: persistent dizziness, light-headedness, or visual disturbances Notify your health care provider if you experience any of the following: increased confusion or weakness Activity as tolerated Significant Diagnostic Studies: Labs: BMP: Recent Labs Lab 11/21/19 1502 11/22/19 0702 GLU 123* 130* NA 138 138 K 3.4* 4.1 CL 102 101 CO2 25 25 BUN 12 14 CREATININE 0.8 1.0 CALCIUM 9.1 9.5 MG 1.9 1.8 , CMP Recent Labs Lab 11/21/19 1502 11/22/19 0702 NA 138 138 K 3.4* 4.1 CL 102 101 CO2 25 25 GLU 123* 130* BUN 12 14 CREATININE 0.8 1.0 CALCIUM 9.1 9.5 PROT 7.5 8.0 ALBUMIN 3.8 4.0 BILITOT 0.2 0.2 ALKPHOS 71 75 AST 27 25 ALT 27 29 ANIONGAP 11 12 ESTGFRAFRICA >60 >60 EGFRNONAA >60 >60 and CBC Recent Labs Lab 11/21/19 1502 11/22/19 0702 WBC 8.80 9.11 HGB 12.2 12.3 HCT 39.0 38.8 PLT 285 292 Pending Diagnostic Studies: Procedure Component Value Units Date/Time CT Head Without Contrast [[id number]] Order Status: Sent Lab Status: No result Drugs of Abuse Screen, Blood [[id number]] Collected: 09/14/20 1934 Order Status: Sent Lab Status: In process Updated: 11/22/19 0030 Specimen: Blood Echo Color Flow Doppler? Yes ?? Mild eccentric left ventricular hypertrophy. ?? Normal left ventricular systolic function. The estimated ejection fraction is 55-60%. ?? Grade II (moderate) left ventricular diastolic dysfunction consistent with pseudonormalization. ?? No wall motion abnormalities. ?? Normal right ventricular systolic function. ?? Mild left atrial enlargement. ?? Normal central venous pressure (3 mmHg). ?? Mild mitral regurgitation. X-Ray Chest AP Portable Narrative: EXAMINATION: XR CHEST AP PORTABLE CLINICAL HISTORY: possible lung injury; TECHNIQUE: Single frontal view of the chest was performed. COMPARISON: 11/21/2019 FINDINGS: Lungs are better expanded when compared to prior exam. Cardiomediastinal silhouette is at the upperlimits of normal in size. Pulmonary vascularity is within normal limits. Lungs show no evidence ofsignificant focal consolidation, large effusion or pneumothorax. Bones show no acute abnormalities. Impression: No acute radiographic findings in the chest. Electronically signed by: Agus Zavaleta MD Date: 11/22/2019 Time: 07:15 Medications: Reconciled Home Medications: Medication List CONTINUE taking these medications aspirin 81 MG EC tablet Commonly known as: ECOTRIN Take 81 mg by mouth. dicyclomine 20 mg tablet Commonly known as: BENTYL Take 1 tablet (20 mg total) by mouth 2 (two) times daily. As needed abd cramping flecainide 150 MG Tab Commonly known as: TAMBOCOR Take 1 tablet (150 mg total) by mouth continuous prn. Take 2 tablets for atrial fibrillation hydroCHLOROthiazide 12.5 MG Tab Commonly known as: HYDRODIURIL Take 1 tablet (12.5 mg total) by mouth once daily. metFORMIN 500 MG ER 24hr tablet Commonly known as: GLUCOPHAGE-XR Take 1 tablet (500 mg total) by mouth before dinner. metoprolol succinate 50 MG 24 hr tablet Commonly known as: TOPROL-XL Take 1 tablet (50 mg total) by mouth once daily. naproxen 500 MG tablet Commonly known as: NAPROSYN Take 1 tablet (500 mg total) by mouth 2 (two) times daily with meals. ondansetron 4 MG Tbdl Commonly known as: ZOFRAN-ODT Take 1 tablet (4 mg total) by mouth every 8 (eight) hours as needed (n/v). oxyCODONE-acetaminophen 10-325 mg per tablet Commonly known as: PERCOCET Take 1 tablet by mouth every 6 (six) hours as needed. spironolactone 25 MG tablet Commonly known as: ALDACTONE Take 1 tablet (25 mg total) by mouth once daily. Indwelling Lines/Drains at time of discharge: Lines/Drains/Airways None Time spent on the discharge of patient: 42 minutes Patient was seen and examined on the date of discharge and determined to be suitable for discharge. Ck Hanks DO Department of Hospital Medicine [facility] documented in this encounter Discharge Instructions AttachmentsThe following attachments cannot be sent through Care Everywhere.4 Steps for Eating Healthier ([place] Citizen)Stroke, Symptoms ([place] Citizen)documented in this encounter Medications at Time of [...] total) by mouth Essential hypertension once daily. dicyclomine (BENTYL) 20 mg Take 1 tablet (20 20 tablet 0 12/18/2019 tablet mg total) by mouth 2 (two) times daily. As needed abd cramping aspirin (ECOTRIN) 81 MG EC Take 81 mg by 0 01/06/2020 tablet mouth. naproxen (NAPROSYN) 500 MG Take 1 tablet [...] as needed. documented as of this encounter H&P Notes Bess Fisher MD - 11/21/2019 7:16 PM CDT [facility] Medicine History & Physical Patient Name: Remedios Schofield Admission Date: 11/21/2019 Attending Physician: Bess Fisher MD Primary Care Provider: Theresa Doss MD Patient information was obtained from relative(s) and ER records. Subjective: Principal Problem:Stroke Chief Complaint: Chief Complaint Patient presents with ??? Loss of Consciousness family member reports pt was passing out repeatedly while cleaning her bathroom with bleach/ammonia solution. when ems arrived pt was supine on the porch, unresponsive, breathing spontaneously with her eyes wide open. awakened a little to painful stimuli and kept repeating herself saying she was cleaning. ambulated to ems stretcher. HPI: Remedios Schofield is a 44 y/o F with PMH of Afib, hypertension, brought in by EMS due to a syncopal episode at home liking due to mixing of ammonia and bleach at home. EMS reported patient regained consciousness briefly and walked to her porch before she loss consciousness again, unresponsive but breathing spontaneously. Then intermittently conscious and repeating I was cleaning. Patient arrived ED unresponsive, BP 168/103, RR 33, SpO2 of 97% . CXR unremarkable, MRA head with noacute findings, CTA head reported no acute intracranial findings. No abnormal intracranial enhancement. Overall unremarkable CTA head and neck examination. Past Medical History: Diagnosis Date ??? A-fib ??? Atrial fibrillation 1982 ??? Atrial fibrillation ??? Bronchitis ??? Fibroid, uterine ??? Hypertension Past Surgical History: Procedure Laterality Date ??? HYSTERECTOMY 12/31/2018 ??? MYOMECTOMY 2015 fibroids Review of patient's allergies indicates: No Known Allergies No current facility-administered medications on file prior to encounter. Current Outpatient Medications on File Prior to Encounter Medication Sig ??? aspirin (ECOTRIN) 81 MG EC tablet Take 81 mg by mouth. ??? dicyclomine (BENTYL) 20 mg tablet Take 1 tablet (20 mg total) by mouth 2 (two) times daily. As needed abd cramping ??? flecainide (TAMBOCOR) 150 MG Tab Take 1 tablet (150 mg total) by mouth continuous prn. Take 2 tablets for atrial fibrillation ??? hydroCHLOROthiazide (HYDRODIURIL) 12.5 MG Tab Take 1 tablet (12.5 mg total) by mouth once daily. ??? metFORMIN (GLUCOPHAGE-XR) 500 MG XR 24hr tablet Take 1 tablet (500 mg total) by mouth before dinner. (Patient not taking: Reported on 10/24/2019) ??? metoprolol succinate (TOPROL-XL) 50 MG 24 hr tablet Take 1 tablet (50 mg total) by mouth once daily. ??? naproxen (NAPROSYN) 500 MG tablet Take 1 tablet (500 mg total) by mouth 2 (two) times daily withmeals. (Patient not taking: Reported on 01/19/2019) ??? ondansetron (ZOFRAN-ODT) 4 MG TbDL Take 1 tablet (4 mg total) by mouth every 8 (eight) hours as needed (n/v). ??? oxyCODONE-acetaminophen (PERCOCET) 10-325 mg per tablet Take 1 tablet by mouth every 6 (six) hours as needed. (Patient not taking: Reported on 03/18/2019) ??? spironolactone (ALDACTONE) 25 MG tablet Take 1 tablet (25 mg total) by mouth once daily. Family History Problem Relation (Age of Onset) Atrial fibrillation Father, Sister Coronary artery disease Father, Mother Diabetes Father, Mother, Sister Eclampsia Mother Hypertension Father, Sister, Sister Leukemia Mother Lymphoma Brother No Known Problems Daughter, Sister Sarcoidosis Sister Throat cancer Mother Tobacco Use ??? Smoking status: Never Smoker ??? Smokeless tobacco: Never Used Substance and Sexual Activity ??? Alcohol use: Yes Frequency: 2-3 times a week Drinks per session: 1 or 2 Binge frequency: Never Comment: weekends ??? Drug use: No ??? Sexual activity: Not Currently Partners: Male control/protection: None, See Surgical Hx Review of Systems Unable to perform ROS: Acuity of condition Objective: Vital Signs (Most Recent): Temp: 97.5 ??F (36.4 ??C) (11/21/19 1611) Pulse: 94 (11/21/19 1602) Resp: 12 (11/21/19 1633) BP: (!) 189/92 (11/21/19 1635) SpO2: 98 % (11/21/19 1602) Vital Signs (24h Range): Temp: [97.5 ??F (36.4 ??C)] 97.5 ??F (36.4 ??C) Pulse: [75-100] 94 Resp: [12-33] 12 SpO2: [97 %-98 %] 98 % BP: (168-200)/(90-103) 189/92 Weight: 122 kg (269 lb) Body mass index is 43.42 kg/m??. Physical Exam Constitutional: Appearance: She is well-developed. HENT: Head: Normocephalic and atraumatic. Right Ear: External ear normal. Eyes: Pupils: Pupils are equal, round, and reactive to light. Neck: Musculoskeletal: Normal range of motion and neck supple. Cardiovascular: Rate and Rhythm: Normal rate and regular rhythm. Pulses: Normal pulses. Heart sounds: Normal heart sounds. Pulmonary: Effort: Pulmonary effort is normal. Breath sounds: Normal breath sounds. Abdominal: General: Bowel sounds are normal. Palpations: Abdomen is soft. Tenderness: There is no abdominal tenderness. Comments: Obese Musculoskeletal: Normal range of motion. Skin: General: Skin is warm. Neurological: Mental Status: She is alert. Psychiatric: Mood and Affect: Mood is not anxious or depressed. Speech: Speech normal. Thought Content: Thought content does not include suicidal ideation. CRANIAL NERVES CN III, IV, Pupils are equal, round, and reactive to light. Significant Labs: A1C: Recent Labs Lab 10/24/19 1540 HGBA1C 6.4* ABGs: Recent Labs Lab 11/21/19 1504 PH 7.335* PCO2 48.5* HCO3 25.8 POCSATURATED 100 BE 0 CBC: Recent Labs Lab 11/21/19 1502 WBC 8.80 HGB 12.2 HCT 39.0 PLT 285 CMP: Recent Labs Lab 11/21/19 1502 NA 138 K 3.4* CL 102 CO2 25 GLU 123* BUN 12 CREATININE 0.8 CALCIUM 9.1 PROT 7.5 ALBUMIN 3.8 BILITOT 0.2 ALKPHOS 71 AST 27 ALT 27 ANIONGAP 11 EGFRNONAA >60 Cardiac Markers: Recent Labs Lab 11/21/19 1502 BNP <10 Coagulation: Recent Labs Lab 11/21/19 1502 INR 1.0 Lactic Acid: Recent Labs Lab 11/21/19 1502 LACTATE 2.8* Lipase: No results for input(s): LIPASE in the last 48 hours. Lipid Panel: Recent Labs Lab 11/21/19 1502 CHOL 206* HDL 51 LDLCALC 132.0 TRIG 115 CHOLHDL 24.8 Troponin: Recent Labs Lab 11/21/19 1502 TROPONINI <0.006 TSH: Recent Labs Lab 11/21/19 1502 TSH 1.016 Urine Culture: No results for input(s): LABURIN in the last 48 hours. Urine Studies: No results for input(s): COLORU, APPEARANCEUA, PHUR, SPECGRAV, PROTEINUA, GLUCUA, KETONESU, BILIRUBINUA, OCCULTUA, NITRITE, UROBILINOGEN, LEUKOCYTESUR, RBCUA, WBCUA, BACTERIA, SQUAMEPITHEL, HYALINECASTS in the last 48 hours. Invalid input(s): WRIGHTSUR All pertinent labs within the past 24 hours have been reviewed. Imaging Results MRI Brain Ischemic Inter Pro Incl MRA W/O Con (Final result) Result time 11/21/19 16:24:[address] Arshad MD (11/21/19 16:24:36) Impression: 1. No acute intracranial process. 2. MRA study is nondiagnostic secondary to ample motion artifact. Electronically signed by: Rd Arshad Date: 11/21/2019 Time: 16:24 Narrative: EXAMINATION: MRI BRAIN ISCHEMIC INTERVENTIONAL PROTOCOL INCL MRA W/O CONTRAST CLINICAL HISTORY: Stroke, follow up; TECHNIQUE: Multiplanar multisequence MR imaging of the brain was performed without intravenous contrast. Additional MRA 3D [id number]-ve-[id number] imaging with subtraction rotational images. COMPARISON: CT 11/21/2019 FINDINGS: Please note the recent negative CTA head study. Motion artifact which may diminish the sensitivity. Intracranial Compartment: Ventricles and sulci are normal in size for age without evidence of hydrocephalus. No extra-axial blood or fluid collections. The brain parenchyma appears normal. No mass lesion, acute hemorrhage, edema, or acute infarct. Normal vascular flow voids are preserved. Skull/Extracranial Contents (limited evaluation): Bone marrow signal intensity is normal. MRA study is nondiagnostic with ample motion artifact. Recommend clinical correlation retained follow-up. X-Ray Chest AP Portable (Final result) Result time 11/21/19 15:06:53 Final result by Luis Sheikh MD (11/21/19 15:06:53) Impression: No radiographic acute intrathoracic process seen on this limited hypoventilatory view. Electronically signed by: Luis Sheikh MD Date: 11/21/2019 Time: 15:06 Narrative: EXAMINATION: XR CHEST AP PORTABLE CLINICAL HISTORY: Stroke; TECHNIQUE: Single frontal view of the chest was performed. COMPARISON: Chest radiograph 03/28/2019 FINDINGS: Patient is somewhat rotated. Resolution is limited by body habitus with underpenetration. Trachea is midline and patent. There is mild nonspecific elevation of the right hemidiaphragm. Cardiomediastinal silhouette is midline and within normal limits for age. The lungs are symmetrically hypoexpanded without large consolidation, pleural effusion or pneumothorax allowing for low lung volumes. No acute osseous process seen. PA and lateral views can be obtained. CTA Head and Neck (xpd) (Final result) Result time 11/21/19 15:10:00 Procedure changed from CTA STROKE MULTI-PHASE Final result by Joni Dill MD (11/21/19 15:10:00) Impression: 1. No acute intracranial findings. No abnormal intracranial enhancement. 2. Overall unremarkable CTA head and neck examination. No evidence of flow- limiting stenosis or large vessel occlusion Electronically signed by: Joni Dill Date: 11/21/2019 Time: 15:10 Narrative: EXAMINATION: CTA HEAD AND NECK (XPD) CLINICAL HISTORY: Neuro deficit, acute, stroke suspected; TECHNIQUE: Non contrast low dose axial images were obtained through the head. CT angiogram was performed from the level of the ariella to the top of the head following the IV administration of 100mL of Omnipaque 350. Sagittal and coronal reconstructions and maximum intensity projection reconstructions were performed. Arterial stenosis percentages are based on NASCET measurement criteria. COMPARISON: Brain MRI performed 02/04/2017 FINDINGS: Head CT: No acute intracranial hemorrhage, mass effect, or midline shift is appreciated. No evidence of acute transcortical infarct by noncontrast CT. Parenchymal volume appears to be within normal limits forpatient age. No evidence of hydrocephalus. Basal cisterns are patent. No extra-axial fluid collection is seen.Extracranial soft tissue structures appear to be within normal limits. No aggressive osseous lesionis seen. Scattered relatively minor degree of paranasal sinus mucosal thickening is evident. Mastoid air cells and middle ear cavities appear grossly clear. No abnormal postcontrast enhancement. Partially empty sella variant. NECK: Imaged aortic arch: Normal Right common and cervical internal carotid arteries:: No evidence of flow- limiting stenosis. Left common and cervical internal carotid arteries: No evidence of flow-limiting stenosis. Right cervical vertebral artery: There is no hemodynamically significant stenosis or dissection Left cervical vertebral artery: There is no hemodynamically significant stenosis or dissection. HEAD: Right anterior circulation:Normal Right ophthalmic artery is patent. Left anterior circulation: NormalLeft ophthalmic artery is patent. Posterior circulation: There is no hemodynamically significant vertebrobasilar stenosis. There is nosignificant GUITAR MAKER stenosis. Posterior inferior cerebellar arteries patent at origin. Anterior and posterior communicating arteries: The anterior communicating artery appears patent. Posterior communicating arteries are not reliably visualized. NON-ANGIOGRAPHIC FINDINGS: Visualized intracranial contents: As above Soft tissues of the neck: Unremarkable. Visualized sinuses: Minimal paranasal sinus mucosal thickening. Dentition: Unremarkable. Spine: Unremarkable. Visualized lungs: Motion compromises evaluation of the lung parenchyma. Subsegmental atelectasis may be present. No focal parenchymal opacity is noted. Significant Imaging: I have reviewed all pertinent imaging results/findings within the past 24 hours. Assessment/Plan: * Stroke Altered mental status Poison exposure Hypertension CXR unremarkable MRA head with no acute findings, CTA head reported no acute intracranial findings. No abnormal intracranial enhancement. Overall unremarkable CTA head and neck examination Echo pending HbA1c Lipid profile permissive hypertension: Keep SBP > 140 Resume home meds- HCT, enalapril, Metoprolol, Spironolactone Hypokalemia Replace Prediabetes Obesity HbA1c 6.4 Low dose SSI Accucheck Diabetic cardiac diet Patient will need to start on Metformin on discharge A-fib Plavix, ASA, Lipitor, Metoprolol VTE Risk Mitigation (From admission, onward) Ordered enoxaparin injection 40 mg Every 24 hours 11/21/191855 IP VTE HIGH RISK PATIENT Once 11/21/191855 Place sequential compression device Until discontinued 11/21/191855 Bess Fisher MD Department of Hospital Medicine [facility] documented in this encounter Consult Notes Herminia Wells MD - 11/21/2019 2:48 PM CDT [facility] Tele-Consultation Note Consults Consulting Provider: TERE LUKE Current Providers No providers found Patient Location: [facility] Emergency Department Spoke hospital nurse at bedside with patient assisting teamcenter consultant. Patient information was obtained from relative(s) and EMS personnel. Assessment/Plan: STROKE DOCUMENTATION Acute Stroke Times: Acute Stroke Times Last Known Normal Date: 11/21/19 Last Known Normal Time: 134 Symptom Onset Date: 11/21/19 Symptom Onset Time: 134 Stroke Team Called Date: 11/21/19 Stroke Team Called Time: 1445 Stroke Team Arrival Date: 11/21/19 Stroke Team Arrival Time: 144 CT Interpretation Time: 1450 NIH Scale: Modified Chastity Rayna Coma Scale: ABCD2 Score: [id number] Score: HAS -BLED Score: ICH Score: Teresa & Ramires Classification: Diagnoses: Rayna coma scale total score 3-8 [place] Common coma scale total score 3-8 There are no focal findings on her examination suggesting this is metabolic or toxic in nature however would recommend getting an MRI to rule out brainstem insult. Patient will need to be admitted. Blood pressure 125/62, pulse 83, temperature 98.4 ??F (36.9 ??C), temperature source Oral, resp. rate 20, height 5' 6 (1.676 m), weight 121 kg (266 lb 12.1 oz), last menstrual period 01/03/2019, SpO2 98 %, not currently . Alteplase Eligible?: Yes Alteplase Recommendation: Alteplase not recommended due to Suspected stroke mimic Possible Interventional Revascularization Candidate? No; No ischemic penumbra Disposition Recommendation: admit to inpatient do not transfer Subjective: History of Present Illness: 44-year-old female who was last known normal at 13 46. She was apparently cleaning the bathroom with a combination of ammonia and bleach and became unresponsive. When she was finally awakened by paramedics, she was noted to keep repeating 1 phrase. Upon arrival to the emergency room, the patient was comatose. Woke up with symptoms?: no Recent bleeding noted: no Does the patient take any Blood Thinners? no Medications: No relevant medications Past Medical History: hypertension, diabetes and Afib Past Surgical History: no major surgeries within the last 2 weeks Family History: no relevant history Social History: unable to obtain Allergies: No Known Allergies Review of Systems Neurological: Comatose All other systems reviewed and are negative. Objective: Vitals: Blood pressure 125/62, pulse 83, temperature 98.4 ??F (36.9 ??C), temperature source Oral, resp. rate 20, height 5' 6 (1.676 m), weight 121 kg (266 lb 12.1 oz), last menstrual period 01/03/2019, SpO2 98 %, not currently . CT READ: Yes No hemmorhage. No mass effect. No early infarct signs. Physical Exam Vitals signs reviewed. Constitutional: Appearance: She is well-developed. HENT: Head: Normocephalic and atraumatic. Eyes: Pupils: Pupils are equal, round, and reactive to light. Cardiovascular: Rate and Rhythm: Normal rate and regular rhythm. Pulmonary: Effort: Pulmonary effort is normal. Neurological: Mental Status: She is unresponsive. Recommended the emergency room physician to have a brief discussion with the patient and/or family if available regarding the risks and benefits of treatment, and to briefly document the occurrence of that discussion in his clinical encounter note. The attending portion of this evaluation, treatment, and documentation was performed per Herminia Wells MD via audiovisual. Billing code: G0427 (moderate to severe stroke, large areas of edema, some mimics) ?? This patient has a critical neurological condition/illness, with high morbidity and mortality. ?? There is a high probability for acute neurological change leading to clinical and possibly life-threatening deterioration requiring highest level of physician preparedness for urgent intervention. ?? Care was coordinated with other physicians involved in the patient's care. ?? Radiologic studies and laboratory data were reviewed and interpreted, and plan of care was re-assessed based on the results. ?? Diagnosis, treatment options and prognosis may have been discussed with the patient and/or familymembers or caregiver. ?? Further advanced medical management and further evaluation is warranted for his care. In your opinion, this was a: Tier 1 Van Negative Consult End Time: 1550 Herminia Wells MD [facility] documented in this encounter ED Notes Herminia Francis RN - 11/21/2019 7:52 PM CDTPt c/o nausea and headache. Idalia Oliveira SOCIAL SCIENCES CHAIR messaged. Awaiting orders. Herminia Anglin RN - 11/21/2019 7:15 PM CDT Recd report from Cari JIM, assumed care at this time.Pt lying on stretcher, lethargic but AAOX4. C/O nausea and headache. Will notify admit team. BBS CTA, skin warm dry intact, BS x 4 quads, no abdominal tenderness. PP palpable no edema. Pt on CM cont pulse ox and automatic BP cuff. at bedside. Waiting for ready bed. SR up Bed locked and low CB in reach. Will continue to monitor. Cari Fuentes RN - 11/21/2019 6:[address]TDr. Innocent informed pt passed Og screen. Ok to order cardiac diet Cari Fuentes RN - 11/21/2019 6:39 PM CDTPt assisted onto bedside commode. EOT Cari Ruiz RN - 11/21/2019 6:12 PM CDTTerry from poison control updated on pt status. Cari Ruiz RN - 11/21/2019 5:51 [address] CDTDr. Innocent at bedside. Cari Fuentes RN - 11/21/2019 5:40 PM CDTPt awake, alert, and oriented x 3. Pt requesting ice chips, OG screen performed. Pt report she was cleaning the bathroom, initially put lysol in the toilet, used clorox wipes to clean the seat, and then used pinesol. Pt noted cloud of smoke and went outside of home for fresh air. She began to experience burning sensation to Abdomen and nausea. Pt reports symptoms have resolved and only c/o generalized weakness at this time. Cinthya Marinelli RN - 11/21/2019 4:20 PM CDTContacted [place] Poison Control. Advised supportive care with oxygen support was only treatment at thispoint. Monitor for acute lung injury and metabolic acidosis. Will call back to check on progress at 1800. Spoke with Félix. Cari Fuentes RN - 11/21/2019 4:05 PM CDTReturned from MRI with pt. Pt connected to continuous blower installer. Sister at bedside and updatedon plan of care. Pt continues to have intermittent episodes of opening eye and stating I was cleaning pt tearful at moments and able to be reoriented. Cari Fuentes RN - 11/21/2019 3:32 PM CDTPt having intermittent episodes of becoming non responsive. Spontaneous opening of eyes. Equal rise and fall of chest, o2 via NC at 3 L for comfort. Upon start of MRI pt became increasingly responsive and anxious. Pt reoriented. Cari Fuentes RN - 11/21/2019 3:28 PM CDTNon rebreather removed and pt placed on 3L of o2 via NC EOTSmelo, DIANDRA Alcala - 11/21/2019 3:28 PM CDTPt transferred to [facility] with RN x 2 and geology technician on potable tele monitor and [id number] signed by Cari Ruiz RN at 11/21/2019 3:33 PM Alfredo, DIANDRA Alcala - 11/21/2019 3:27 PM CDTSister at bedside EOTSmelo, DIANDRA Alcala - 11/21/2019 3:07 PM CDTPt became responsive after administration of ammonia inhaler, pt states I was cleaning When askedif she is aware of self and environment pt nods head and continues to repeat I was cleaning Dilma Mcmahon RN - 11/21/2019 2:[address] Wells notified of stroke consult by transfer center Tere Andrade MD - 11/21/2019 2:52 PM CDTAssociated Order(s): Critical Care Encounter Date: 11/21/2019 SCRIBE #1 NOTE: I, Urszula Erickson, am scribing for, and in the presence of, Dr. Luke. I have scribed the entire note. History Chief Complaint Patient presents with ??? Loss of Consciousness family member reports pt was passing out repeatedly while cleaning her bathroom with bleach/ammonia solution. when ems arrived pt was supine on the porch, unresponsive, breathing spontaneously with her eyes wide open. awakened a little to painful stimuli and kept repeating herself saying she was cleaning. ambulated to ems stretcher. Time seen by provider: 2:52 PM This is a 44 y.o. female with a history of A-fib and HTN who presents to the ED via EMS after a syncopal episode KARDEX CLERK. EMS personnel reports they were called after patient had a syncopal episode post mixing ammonia and bleach while cleaning. Patient was able to regain consciousness and walked onto her porch before losing consciousness again. On EMS arrival, patient was unresponsive but was breathing spontaneously. They report she was not blinking and would become responsive. Patient would continuously repeat I was cleaning. Patient came to for a brief moment and ambulated to the stretcher with assistance from EMS and FD. On arrival, patient was unresponsive. The history is provided by the EMS personnel. Review of patient's allergies indicates: No Known Allergies Past Medical History: Diagnosis Date ??? A-fib ??? Atrial fibrillation 1982 ??? Atrial fibrillation ??? Bronchitis ??? Fibroid, uterine ??? Hypertension Past Surgical History: Procedure Laterality Date ??? HYSTERECTOMY 12/31/2018 ??? MYOMECTOMY 2015 fibroids Family History Problem Relation Age of Onset [...] Neg Hx ??? Ovarian cancer Neg Hx Social History Tobacco Use ??? Smoking status: Never Smoker ??? Smokeless tobacco: Never Used Substance Use Topics ??? Alcohol use: Yes Frequency: 2-3 times a week Drinks per session: 1 or 2 Binge frequency: Never Comment: weekends ??? Drug use: No Review of Systems Unable to perform ROS: Mental status change Physical Exam Initial Vitals BP Pulse Resp Temp SpO2 11/21/19 1435 11/21/19 1435 11/21/19 1602 11/21/19 1611 11/21/19 1435 (!) 168/103 75 (!) 33 97.5 ??F (36.4 ??C) 97 % MAP -- Physical Exam Nursing note and vitals reviewed. Constitutional: She appears well-developed and well-nourished. She is not diaphoretic. HENT: Head: Normocephalic and atraumatic. Eyes: Conjunctivae and EOM are normal. Watery conjunctiva Neck: Normal range of motion. Neck supple. Cardiovascular: Normal rate, regular rhythm and intact distal pulses. Pulmonary/Chest: No respiratory distress. She has no wheezes. Abdominal: Soft. There is no abdominal tenderness. Musculoskeletal: Normal range of motion. No edema. Neurological: She is alert. She displays no tremor. No cranial nerve deficit. Sensory deficit: unable to assess. She exhibits abnormal muscle tone (generalized weakness, FELIPE). She displays no seizure activity. GCS eye subscore is 4. GCS verbal subscore is 1. GCS motor subscore is 6. She displays no Bab inski's sign on the right side. She displays no Babinski's sign on the left side. nonverbal Skin: Skin is warm and dry. ED Course Critical Care Date/Time: 11/21/2019 3:49 PM Performed by: Tere Luke MD Authorized by: Tere Luke MD Total critical care time (exclusive of procedural time) : 45 minutes Critical care time was exclusive of separately billable procedures and treating other patients. Critical care was necessary to treat or prevent imminent or life-threatening deterioration of the following conditions: BALANCE CLERK failure or compromise and toxidrome. Critical care was time spent personally by me on the following activities: blood draw for specimens,discussions with consultants, interpretation of cardiac output measurements, evaluation of patient'sresponse to treatment, examination of patient, obtaining history from patient or surrogate, orderingand performing treatments and interventions, ordering and review of laboratory studies, ordering andreview of radiographic studies, pulse oximetry, re-evaluation of patient's condition and review of old charts. Labs Reviewed CBC W/ AUTO DIFFERENTIAL - Abnormal; Notable for the following components: Result Value Mean Corpuscular Hemoglobin 26.6 (*) Mean Corpuscular Hemoglobin Conc 31.3 (*) Immature Granulocytes 1.1 (*) Immature Grans (Abs) 0.10 (*) All other components within normal limits COMPREHENSIVE METABOLIC PANEL - Abnormal; Notable for the following components: Potassium 3.4 (*) Glucose 123 (*) All other components within normal limits LIPID PANEL - Abnormal; Notable for the following components: Cholesterol 206 (*) All other components within normal limits C-REACTIVE PROTEIN - Abnormal; Notable for the following components: CRP 8.6 (*) All other components within normal limits LACTIC ACID, PLASMA - Abnormal; Notable for the following components: Lactate (Lactic Acid) 2.8 (*) All other components within normal limits ISTAT PROCEDURE - Abnormal; Notable for the following components: POC PH 7.335 (*) POC PCO2 48.5 (*) POC PO2 398 (*) All other components within normal limits PROTIME-INR TSH TROPONIN I B-TYPE NATRIURETIC PEPTIDE FERRITIN LACTATE DEHYDROGENASE CK MAGNESIUM ACETAMINOPHEN LEVEL ALCOHOL,MEDICAL (ETHANOL) SARS-COV-2 RNA AMPLIFICATION, QUAL DRUG SCREEN PANEL, URINE EMERGENCY ALCOHOL,MEDICAL (ETHANOL) ACETAMINOPHEN LEVEL POCT GLUCOSE, HAND-HELD DEVICE ISTAT CREATININE ISTAT PROCEDURE EKG Readings: (Independently Interpreted) Initial Reading: No STEMI. Rhythm: Normal Sinus Rhythm. Ectopy: No Ectopy. Conduction: Normal. OtherImpression: nonspecific ST changes, seen in prior EKG ECG Results ECG 12 lead (Final result) Result time 11/21/19 15:47:45 Final result by Interface, Lab In [facility] (11/21/19 15:47:45) Narrative: Test Reason : I63.9, Vent. Rate : 093 BPM Atrial Rate : 093 BPM P-R Int : 150 ms QRS Dur : 090 ms QT Int : 398 ms P-R-T Axes : 043 057 025 degrees QTc Int : 494 ms Normal sinus rhythm Prolonged QT Abnormal ECG When compared with ECG of 01-AUG-2019 20:17, Vent. rate has increased BY 32 BPM Questionable change in The axis Nonspecific T wave abnormality no longer evident in Anterior leads QT has lengthened Confirmed by Raji FLEMING MD, Alverto Melvin ([id number]) on 11/21/2019 3:47:34 PM Referred By: System System Confirmed By:Alverto Alegria III, MD X-Rays: Independently Interpreted Readings: Other Readings: Reviewed by myself, read by radiology. Imaging Results MRI Brain Ischemic Inter Pro Incl MRA W/O Con (Final result) Result time 11/21/19 16:24:[address] Arshad MD (11/21/19 16:24:36) Impression: 1. No acute intracranial process. 2. MRA study is nondiagnostic secondary to ample motion artifact. Electronically signed by: Rd Arshad Date: 11/21/2019 Time: 16:24 Narrative: EXAMINATION: MRI BRAIN ISCHEMIC INTERVENTIONAL PROTOCOL INCL MRA W/O CONTRAST CLINICAL HISTORY: Stroke, follow up; TECHNIQUE: Multiplanar multisequence MR imaging of the brain was performed without intravenous contrast. Additional MRA 3D [id number] imaging with subtraction rotational images. COMPARISON: CT 11/21/2019 FINDINGS: Please note the recent negative CTA head study. Motion artifact which may diminish the sensitivity. Intracranial Compartment: Ventricles and sulci are normal in size for age without evidence of hydrocephalus. No extra-axial blood or fluid collections. The brain parenchyma appears normal. No mass lesion, acute hemorrhage, edema, or acute infarct. Normal vascular flow voids are preserved. Skull/Extracranial Contents (limited evaluation): Bone marrow signal intensity is normal. MRA study is nondiagnostic with ample motion artifact. Recommend clinical correlation retained follow-up. X-Ray Chest AP Portable (Final result) Result time 11/21/19 15:06:53 Final result by Luis Sheikh MD (11/21/19 15:06:53) Impression: No radiographic acute intrathoracic process seen on this limited hypoventilatory view. Electronically signed by: Luis Sheikh MD Date: 11/21/2019 Time: 15:06 Narrative: EXAMINATION: XR CHEST AP PORTABLE CLINICAL HISTORY: Stroke; TECHNIQUE: Single frontal view of the chest was performed. COMPARISON: Chest radiograph 03/28/2019 FINDINGS: Patient is somewhat rotated. Resolution is limited by body habitus with underpenetration. Trachea is midline and patent. There is mild nonspecific elevation of the right hemidiaphragm. Cardiomediastinal silhouette is midline and within normal limits for age. The lungs are symmetrically hypoexpanded without large consolidation, pleural effusion or pneumothorax allowing for low lung volumes. No acute osseous process seen. PA and lateral views can be obtained. CTA Head and Neck (xpd) (Final result) Result time 11/21/19 15:10:00 Procedure changed from CTA STROKE MULTI-PHASE Final result by Joni Dill MD (11/21/19 15:10:00) Impression: 1. No acute intracranial findings. No abnormal intracranial enhancement. 2. Overall unremarkable CTA head and neck examination. No evidence of flow- limiting stenosis or large vessel occlusion Electronically signed by: Joni Dill Date: 11/21/2019 Time: 15:10 Narrative: EXAMINATION: CTA HEAD AND NECK (XPD) CLINICAL HISTORY: Neuro deficit, acute, stroke suspected; TECHNIQUE: Non contrast low dose axial images were obtained through the head. CT angiogram was performed from the level of the ariella to the top of the head following the IV administration of 100mL of Omnipaque 350. Sagittal and coronal reconstructions and maximum intensity projection reconstructions were performed. Arterial stenosis percentages are based on NASCET measurement criteria. COMPARISON: Brain MRI performed 02/04/2017 FINDINGS: Head CT: No acute intracranial hemorrhage, mass effect, or midline shift is appreciated. No evidence of acute transcortical infarct by noncontrast CT. Parenchymal volume appears to be within normal limits forpatient age. No evidence of hydrocephalus. Basal cisterns are patent. No extra-axial fluid collection is seen.Extracranial soft tissue structures appear to be within normal limits. No aggressive osseous lesionis seen. Scattered relatively minor degree of paranasal sinus mucosal thickening is evident. Mastoid air cells and middle ear cavities appear grossly clear. No abnormal postcontrast enhancement. Partially empty sella variant. NECK: Imaged aortic arch: Normal Right common and cervical internal carotid arteries:: No evidence of flow- limiting stenosis. Left common and cervical internal carotid arteries: No evidence of flow-limiting stenosis. Right cervical vertebral artery: There is no hemodynamically significant stenosis or dissection Left cervical vertebral artery: There is no hemodynamically significant stenosis or dissection. HEAD: Right anterior circulation:Normal Right ophthalmic artery is patent. Left anterior circulation: NormalLeft ophthalmic artery is patent. Posterior circulation: There is no hemodynamically significant vertebrobasilar stenosis. There is nosignificant GUITAR MAKER stenosis. Posterior inferior cerebellar arteries patent at origin. Anterior and posterior communicating arteries: The anterior communicating artery appears patent. Posterior communicating arteries are not reliably visualized. NON-ANGIOGRAPHIC FINDINGS: Visualized intracranial contents: As above Soft tissues of the neck: Unremarkable. Visualized sinuses: Minimal paranasal sinus mucosal thickening. Dentition: Unremarkable. Spine: Unremarkable. Visualized lungs: Motion compromises evaluation of the lung parenchyma. Subsegmental atelectasis may be present. No focal parenchymal opacity is noted. Medical Decision Making: History: Old Medical Records: I decided to obtain old medical records. Old Records Summarized: records from previous admission(s). <> Summary of Records: Hx PAF, no OAC, asa 79 Remote covid + Initial Assessment: Past medical records queried and reviewed, including a history of A-fib and HTN. 44 y.o. female who presents to the ED via EMS after a syncopal episode KARDEX CLERK. The patient was seen and examined. The history and physical exam was obtained. The nursing notes and vital signs were reviewed. Secondary to symptoms and exam findings we ordered: Labs: CRP, Ferritin, CK, COVID-19, Lactic acid, CBC, Mg, CMP, PT/INR, TSH, LDL,Troponin, BNP Imaging: CTA Head and Neck, CT Head, CXR Patient will be administered naloxone injection, alteplase injection, and iohexol injection. Patient will be monitored here. Differential Diagnosis: Differential Diagnosis includes, but is not limited to: CVA/TIA, seizure, status epilepticus, post-ictal state, meningitis/encephalitis, sepsis, [place]/ACS, arrhythmia, syncope, intracranial mass/hemorrhage, head trauma, anaphylaxis, substance abuse, alcohol intoxication/withdrawal, medication reaction, intentional medication overdose, neuroleptic malignant syndrome, serotonin syndrome, CO poisoning, hypoxia/hypercapnea, hepatic encephalopathy, metabolic disturbance, thyroid disease, hypoglycemia. Independently Interpreted Test(s): I have ordered and independently interpreted X-rays - see prior notes. I have ordered and independently interpreted EKG Reading(s) - see prior notes Clinical Tests: Lab Tests: Ordered and Reviewed Radiological Study: Ordered and Reviewed Medical Tests: Ordered and Reviewed ED Management: Discussed with Dr. Wells recommend MRI brain for brainstem evaluation Improved response with ammonia capsule, stated I need to clean, following commands sluggishly AMS 2/2 chemical exposure remains on ddx Other: I have discussed this case with another health care provider. Clinical Impression: 1. Chemical exposure 2. Encephalopathy 3. AMS (altered mental status) Disposition: Disposition: Placed in Observation Condition: Fair Scribe attestation I, Dr. Tere Luke, personally performed the services described in this documentation. All medical record entries made by the scribe were at my direction and in my presence. I have reviewed the chart and agree that the record reflects my personal performance and is accurate and complete. Tere Luke MD. 3:49 PM 11/21/2019 Tere Luke MD 11/22/19 0952 Cari Fuentes RN - 11/21/2019 2:40 PM CDTPt o2 sat decreased to 88% during CT. Dr. Luke presents for imagining. Pt placed on 15L via non rebreather, o2 sat increased to 100% documented in this encounter Miscellaneous Notes Plan of Ambar Valles RN - 11/22/2019 1:48 PM CDTDischarge instructions printed off and handed to patient Work excuse with AVS. No new prescriptions. Ivs taken out. Heart monitor off. Encouraged to go to all follow up appointments. All questions answered. Ambar Arroyo RN lan of Rosy Muñiz RN - 11/22/2019 1:46 PM CDT Rounds completed on pt. All questions addressed. Bedside nurse to discuss d/c medications. Discussed importance to attend all f/u appts and take medications as prescribed. Verbalized understanding. Theresa Doss MD [id number] [facility] [id number] The office will call you to schedule hospital follow-up appointment. Nam Agustin MD [address] [address] The office will call you to schedule hospital follow-up appointment. 11/22/19 1346 Final Note Assessment Type Final Discharge Note Anticipated Discharge Disposition Home Hospital Follow Up Appt(s) scheduled? Yes Discharge plans and expectations educations in teach back method with documentation complete? Yes Right Care Referral Info Post Acute Recommendation No Care Patrick Lobato RN, lan of Rosy Muñiz RN - 11/22/2019 1:43 PM CDT Pt is independent at home and drives. 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 No needs identified. Her sister will drive her home. White board updated with CM name and contact information. Discharge brochure provided. Pt encouraged to call with any questions or concerns. Cm will continue to follow ptthrough transitions of care and assist with any discharge needs. 11/22/19 1342 Discharge Assessment Assessment Type Discharge Planning Assessment Confirmed/corrected address and phone number on facesheet? Yes Assessment information obtained from? Patient Communicated expected length of stay with patient/caregiver yes Prior to hospitilization cognitive status: Alert/Oriented Prior to hospitalization functional status: Independent Current cognitive status: Alert/Oriented Current Functional Status: Independent Facility Arrived From: home Lives With spouse;child(ekta), dependent Able to Return to Prior Arrangements yes Is patient able to care for self after discharge? Yes Patient's perception of discharge disposition home or selfcare Readmission Within the Last 30 Days no previous admission in last 30 days Patient currently being followed by outpatient case management? No Patient currently receives any other outside agency services? No Equipment Currently Used at Home none Do you have any problems affording any of your prescribed medications? No Is the patient taking medications as prescribed? yes Does the patient have transportation home? Yes Transportation Anticipated family or friend will provide Does the patient receive services at the [facility]? No Discharge Plan A Home Discharge Plan B Home with family DME Needed Upon Discharge none Patient/Family in Agreement with Plan yes Patrick Lobato RN, lan of Care - Ck Hanks DO - 11/22/2019 1:20 PM CDT Re: Remedios Schofield, WORK / SCHOOL EXCUSE Date: 11/22/2019 [place] [address] Office: [phone] To whom it may concern: Ms. Remedios Schofield has been hospitalized at the [facility] since 11/21/2019. Please excuse the patient from duties. Patient may return on 11/23/2019. No restrictions. Please contact me if you have any questions. Ck Hanks DO ospital Course - Ck Hanks DO - 11/22/2019 1:20 PM CDT/12 pt is feeling well asking to go home, doing well, no focal neurologic deficit. Her imaging are WNL. Her 2 d echo showed grade 2 DCHF probablu secondary to A Fib. PT/OT/DATA STORAGE SPECIALIST Cortney Najera, OT - 11/22/2019 12:18 PM CDT Occupational Therapy Evaluation and Discharge Note Name: Remedios Schofield Admitting Diagnosis: Stroke Recommendations: Discharge Recommendations: home Discharge Equipment Recommendations: none Barriers to discharge: None Assessment: Remedios Schofield is a 44 y.o. female with a medical diagnosis of Stroke. At this time, patient is functioning at their prior level of function and does not require further acute OT services. Pt performing independently for ADLs and functional mobility. BUE ROM/MMT/FMC/GMC/sensation all WFL.Pt reports no visual deficits. Pt does not require further OT services at this time. D/c OT. Plan: During this hospitalization, patient does not require further acute OT services. Please re-consult if situation changes. ?? 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 Pain Rating 1: 0/10 Patient???s cultural, spiritual, mormonism conflicts given the current situation: Objective: Communicated with: marina prior to session.General Precautions: Standard, fall Orthopedic Precautions:N/A Braces: N/A Occupational Performance: Bed Mobility: ?? Patient completed Scooting/Bridging with independence ?? Patient completed Supine to Sit with independence ?? Patient completed Sit to Supine with independence Functional Mobility/Transfers: ?? Patient completed Sit <> Stand Transfer with independence with no assistive device ?? Functional Mobility: independent; no AD Activities of Daily Living: ?? Lower Body Dressing: independence Cognitive/Visual Perceptual: WFL Physical Exam: WFL ROM MMT FMC GM AMPAC 6 Click ADL: AMPAC Total Score: 24 Treatment & Education: N/A Education: Patient left supine with all lines intact, call button in reach, nsg notified and sister present GOALS: Multidisciplinary Problems Occupational Therapy Goals Not on file Multidisciplinary Problems (Resolved) Problem: Occupational Therapy Goal Goal Priority Disciplines Outcome Interventions Occupational Therapy Goal (Resolved) OT, PT/OT Met History: Past Medical History: Diagnosis Date ??? A-fib ??? Atrial fibrillation 1983 ??? Atrial fibrillation ??? Bronchitis ??? Fibroid, uterine ??? Hypertension Past Surgical History: Procedure Laterality Date ??? HYSTERECTOMY 12/31/2018 ??? MYOMECTOMY 2015 fibroids Time Tracking: OT Date of Treatment: 11/22/19 OT Start Time: 856 OT Stop Time: 903 OT Total Time (min): 7 min Billable Minutes:Evaluation 7 Cortney Thacker OT 11/22/2019 lan of Bob - Cortney Thacker OT - 11/22/2019 12:16 PM CDT Problem: Occupational Therapy Goal Goal: Occupational Therapy Goal Outcome: Met Pt performing independently for ADLs and functional mobility. BUE ROM/MMT/FMC/GMC/sensation all WFL.Pt reports no visual deficits. Pt does not require further OT services at this time. D/c OT. PT/OT/DATA STORAGE SPECIALIST Lee Ann Crespo, PT - 11/22/2019 11:01 AM CDT Physical Therapy Evaluation and Discharge Note Patient Name: Remedios Schofield Recommendations: Discharge Recommendations: home Discharge Equipment Recommendations: none Barriers to discharge: None Assessment: Remedios Schofield is a 44 y.o. female admitted with a medical diagnosis of Stroke. . At this time, patient is functioning at their prior level of function and does not require further acute PT services.Pt reporting feeling back at her baseline, only c/o occasionally still becoming slightly queasy when moving around but no complaints during our session. No further PT needs, d/c PT. Recent Surgery: * No surgery found * Plan: During this hospitalization, patient does not require further acute PT services. Please re-consult if situation changes. Subjective Chief Complaint: occasionally feeling queasy Patient/Family Comments/goals: pt reporting feeling much better than yesterday Pain/Comfort: ?? Pain Rating 1: 0/10 ?? Pain Rating Post-Intervention 1: 0/10 Patient???s cultural, spiritual, mormonism conflicts given the current situation: no Living Environment: Pt lives with her and daughter in a H with 5 AZUL with B rails and tub/shower combo. 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 Equipment used at home: none. DME owned (not currently used): none. Upon discharge, patient will have assistance from her family. Objective: Communicated with nurse Villalta prior to session. Patient found HOB elevated with upon PT entry to room. General Precautions: Standard, fall Orthopedic Precautions:N/A Braces: N/A Exams: ?? Fine Motor Coordination: ?? - Intact ?? Gross Motor Coordination: WFL ?? Postural Exam: Patient presented with the following abnormalities: ?? - No postural abnormalities identified ?? Sensation: ?? - Intact ?? Skin Integrity/Edema: ?? - Skin integrity: Visible skin intact ?? BLE ROM: not formally assessed but WNLs ?? BLE Strength: not formally assessed but WNLs per functional mobility Functional Mobility: ?? Bed Mobility: ?? Scooting: modified independence ?? Supine to Sit: modified independence ?? Sit to Supine: modified independence ?? Transfers: ?? Sit to Stand: modified independence with no AD ?? Gait: >150 ft with no AD at mod I level - ambulating initially with lateral weight shifting but no overt LOB and improved with continued ambulation. No overt LOB. AM-PAC 6 CLICK MOBILITY Total Score:24 Patient left HOB elevated with all lines intact, call button in reach, bed alarm on, nurse notified and pt's sister present. GOALS: Multidisciplinary Problems Physical Therapy Goals Not on file Multidisciplinary Problems (Resolved) Problem: Physical Therapy Goal Goal Priority Disciplines Outcome Goal Variances Interventions Physical Therapy Goal (Resolved) PT, PT/OT Met History: Past Medical History: Diagnosis Date ??? A-fib ??? Atrial fibrillation 1982 ??? Atrial fibrillation ??? Bronchitis ??? Fibroid, uterine ??? Hypertension Past Surgical History: Procedure Laterality Date ??? HYSTERECTOMY 12/31/2018 ??? MYOMECTOMY 2015 fibroids Time Tracking: PT Received On: 11/22/19 PT Start Time: 856 PT Stop Time: 902 PT Total Time (min): 6 min Billable Minutes: Evaluation 6 Lee Ann Francis, PT 11/22/2019 Plan of Care - Lee Ann Francis, PT - 11/22/2019 10:59 AM CDT Problem: Physical Therapy Goal Goal: Physical Therapy Goal Outcome: Met Pt reporting feeling back at her baseline, only c/o occasionally still becoming slightly queasy when moving around but no complaints during our session. No further PT needs, d/c PT. T/OT/DATA STORAGE SPECIALIST Zaida Vergara MCD, [facility]-DATA STORAGE SPECIALIST - 11/22/2019 9:43 AM CDT Speech Language Pathology Evaluation Bedside Swallow Discharge Patient Name: Remedios Schofield Admitting Diagnosis: Stroke Recommendations: General Recommendations: Follow-up not indicated Diet recommendations: Regular, Thin Aspiration Precautions: upright for meals, small sips/bites, alternate sips and bites, whole meds, can feed self General Precautions: Standard, fall Communication strategies: none History: Principal Problem:Stroke ?? Chief Complaint: Chief Complaint Patient presents with ??? Loss of Consciousness ? family member reports pt was passing out repeatedly while cleaning her bathroom with bleach/ammonia solution. when ems arrived pt was supine on the porch, unresponsive, breathing spontaneously with her eyes wide open. awakened a little to painful stimuli and kept repeating herself saying she wascleaning. ambulated to ems stretcher. ?? HPI: Remedios Schofield is a 44 y/o F with PMH of Afib, hypertension, brought in by EMS due to a syncopal episode at home liking due to mixing of ammonia and bleach at home. EMS reported patient regained consciousness briefly and walked to her porch before she loss consciousness again, unresponsive but breathing spontaneously. Then intermittently conscious and repeating I was cleaning. Patient arrived ED unresponsive, BP 168/103, RR 33, SpO2 of 97% . CXR unremarkable, MRA head with noacute findings, CTA head reported no acute intracranial findings. ??No abnormal intracranial enhancement. Overall unremarkable CTA head and neck examination. Past Medical History: Diagnosis Date ??? A-fib ??? Atrial fibrillation 1982 ??? Atrial fibrillation ??? Bronchitis ??? Fibroid, uterine ??? Hypertension Past Surgical History: Procedure Laterality Date ??? HYSTERECTOMY 12/31/2018 ??? MYOMECTOMY 2015 fibroids Social History: Patient lives at home, indep with ADLs. Prior Intubation HX: n/a Modified Barium Swallow: none per EMR MRI: No acute intracranial process. Chest X-Rays: No acute radiographic findings in the chest. 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 Patient goals: Pt eager for discharge. Pain/Comfort: ?? Pain Rating 1: 0/10 Objective: Pt seen in room, she is alert, awake, oriented x4. Pt follows commands and able to engage in conversation with no aphasia or word finding deficits present. Oral Musculature Evaluation ?? Oral Musculature: WFL ?? Dentition: present and adequate ?? Mucosal Quality: good, adequate ?? Mandibular Strength and Mobility: WFL ?? Oral Labial Strength and Mobility: WFL ?? Lingual Strength and Mobility: WFL ?? Velar Elevation: WFL ?? Buccal Strength and Mobility: WFL ?? Volitional Cough: elicited ?? Volitional Swallow: timely swallow ?? Voice Prior to PO Intake: clear voice Bedside Swallow Eval: Consistencies Assessed: ?? Thin liquids self fed water ?? Puree self fed applesauce ?? Solids self fed cracker and diced peaches Oral Phase: ?? WFL Pharyngeal Phase: ?? no overt clinical signs/symptoms of aspiration ?? no overt clinical signs/symptoms of pharyngeal dysphagia ?? Timely swallow Compensatory Strategies ?? none Treatment: Pt w/ functional and efficient swallowing and communication skills. No further acute speech pathology services warranted at this time. Please re- consult should patient experience a change instatus. Assessment: Remedios Schofield is a 44 y.o. female admitted with AMS who presents with an DATA STORAGE SPECIALIST diagnosis of functional and efficient swallowing and communication skills. DC ST needs. Goals: Multidisciplinary Problems DATA STORAGE SPECIALIST Goals Not on file Plan: ?? Patient to be seen: ?? Plan of Care expires: ?? Plan of Care reviewed with: patient ?? DATA STORAGE SPECIALIST Follow-Up: No Discharge recommendations: home Barriers to Discharge: none Time Tracking: DATA STORAGE SPECIALIST Treatment Date: 11/22/19 Speech Start Time: 914 Speech Stop Time: 923 Speech Total Time (min): 9 min Billable Minutes: Eval Swallow and Oral Function 9 JOSEPH Mejias CCC-SLP 11/22/2019 Plan of Care - Zaida Goss MCD, CCC-DATA STORAGE SPECIALIST - 11/22/2019 9:41 AM CDTSwallow eval completed, no deficits noted. Cognition and communication are intact. No further ST needs. lan of Care - Lia Brandt CRT - 11/22/2019 8:19 AM CDTPatient on RA with sats as documented. Assessment & Plan Note - Herminia Wells MD - 11/22/2019 4:40 AM CDT Associated Problem(s): [place] coma scale total score 3-8Glasgow coma scale total score 3-8 There are no focal findings on her examination suggesting this is metabolic or toxic in nature however would recommend getting an MRI to rule out brainstem insult. Patient will need to be admitted. ubjective & Objective - Herminia Wells MD - 11/22/2019 4:38 AM CDT Woke up with symptoms?: no Recent bleeding noted: no Does the patient take any Blood Thinners? no Medications: No relevant medications Past Medical History: hypertension, diabetes and Afib Past Surgical History: no major surgeries within the last 2 weeks Family History: no relevant history Social History: unable to obtain Allergies: No Known Allergies Review of Systems Neurological: Comatose All other systems reviewed and are negative. Objective: Vitals: Blood pressure 125/62, pulse 83, temperature 98.4 ??F (36.9 ??C), temperature source Oral, resp. rate 20, height 5' 6 (1.676 m), weight 121 kg (266 lb 12.1 oz), last menstrual period 01/03/2019, SpO2 98 %, not currently . CT READ: Yes No hemmorhage. No mass effect. No early infarct signs. Physical Exam Vitals signs reviewed. Constitutional: Appearance: She is well-developed. HENT: Head: Normocephalic and atraumatic. Eyes: Pupils: Pupils are equal, round, and reactive to light. Cardiovascular: Rate and Rhythm: Normal rate and regular rhythm. Pulmonary: Effort: Pulmonary effort is normal. Neurological: Mental Status: She is unresponsive. - Herminia Wells MD - 11/22/2019 4:34 AM [id number] female who was last known normal at 13 44. She was apparently cleaning the bathroom with a combination of ammonia and bleach and became unresponsive. When she was finally awakened by paramedics, she was noted to keep repeating 1 phrase. Upon arrival to the emergency room, the patient was comatose. lan of Care - Siomara Prado RN - 11/22/2019 3:20 AM CDTProblem: Adult Inpatient Plan of Care Goal: Plan of Care Review Patient is awake and orientedx4. Care plan explained to patient; she verbalized understanding. On room air, O2 saturation at 95-100%. Hooked to heart monitor running normal sinus rhythm/sinus tachycardia at 80-105bpm. Assisted to bathroom as needed. No n/v/d while on the unit. Patient had a headache, tylenol given; mild relief noted (Notified Idalia Oliveira NP). Due medications given. Stroke education provided. NIH:3. Neuro checks every 4 hours (right leg drift noted, some responses were delayed, and herpupils were sluggish). Encouraged to turn every 2 hours as tolerated. Maintained on fall risk precaution. Bed in lowest position, bed alarm on, call light/personal items within reach and instructed to call for help when needed. Will continue to monitor. 0600H: Repeat CXR completed per poison control recommendation Outcome: Ongoing, Progressing lan of Care - Claudia Andrew RN - 11/21/2019 10:01 PM CDTAdmit completed per flowsheet. Patient's questions answered. Pt instructed on VTE, diet, I&Os, tests, fall precautions and medications. Understanding verbalized. Patient has no complaints at this time. ssessment & Plan Note - Bess Fisher MD - 11/21/2019 7:12 PM CDTAssociated Problem(s): A-fibPlavix, ASA, Lipitor, Metoprolol Assessment & Plan Note - Bess Fisher MD - 11/21/2019 7:10 PM CDTAssociated Problem(s): HypokalemiaReplace HPI - Bess Fisher MD - 11/21/2019 7:09 PM CDTCreese Remedios is a 44 y/o F with PMH of Afib, hypertension, brought in by EMS due to a syncopal episode at home liking due to mixing of ammonia and bleach at home. EMS reported patient regained consciousness briefly and walked to her porch before she loss consciousness again, unresponsive but breathing spontaneously. Then intermittently conscious and repeating I was cleaning. Patient arrived ED unresponsive, BP 168/103, RR 33, SpO2 of 97% . CXR unremarkable, MRA head with noacute findings, CTA head reported no acute intracranial findings. No abnormal intracranial enhancement. Overall unremarkable CTA head and neck examination. ssessment & Plan Note - Bess Fisher MD - 11/21/2019 4:51 PM CDTAssociated Problem(s): PrediabetesObesity HbA1c 6.4 Low dose SSI Accucheck Diabetic cardiac diet Patient will need to start on Metformin on discharge Assessment & Plan Note - Bess Fisher MD - 11/21/2019 4:50 PM CDTAssociated Problem(s): StrokeAltered mental status Poison exposure Hypertension CXR unremarkable MRA head with no acute findings, CTA head reported no acute intracranial findings. No abnormal intracranial enhancement. Overall unremarkable CTA head and neck examination Echo pending HbA1c Lipid profile permissive hypertension: Keep SBP > 140 Resume home meds- HCT, enalapril, Metoprolol, Spironolactone ubjective & Objective - Bess Fisher MD - 11/21/2019 4:46 PM CDT Past Medical History: Diagnosis Date ??? A-fib ??? Atrial fibrillation 1982 ??? Atrial fibrillation ??? Bronchitis ??? Fibroid, uterine ??? Hypertension Past Surgical History: Procedure Laterality Date ??? HYSTERECTOMY 12/31/2018 ??? MYOMECTOMY 2015 fibroids Review of patient's allergies indicates: No Known Allergies No current facility-administered medications on file prior to encounter. Current Outpatient Medications on File Prior to Encounter Medication Sig ??? aspirin (ECOTRIN) 81 MG EC tablet Take 81 mg by mouth. ??? dicyclomine (BENTYL) 20 mg tablet Take 1 tablet (20 mg total) by mouth 2 (two) times daily. As needed abd cramping ??? flecainide (TAMBOCOR) 150 MG Tab Take 1 tablet (150 mg total) by mouth continuous prn. Take 2 tablets for atrial fibrillation ??? hydroCHLOROthiazide (HYDRODIURIL) 12.5 MG Tab Take 1 tablet (12.5 mg total) by mouth once daily. ??? metFORMIN (GLUCOPHAGE-XR) 500 MG XR 24hr tablet Take 1 tablet (500 mg total) by mouth before dinner. (Patient not taking: Reported on 10/24/2019) ??? metoprolol succinate (TOPROL-XL) 50 MG 24 hr tablet Take 1 tablet (50 mg total) by mouth once daily. ??? naproxen (NAPROSYN) 500 MG tablet Take 1 tablet (500 mg total) by mouth 2 (two) times daily withmeals. (Patient not taking: Reported on 01/19/2019) ??? ondansetron (ZOFRAN-ODT) 4 MG TbDL Take 1 tablet (4 mg total) by mouth every 8 (eight) hours as needed (n/v). ??? oxyCODONE-acetaminophen (PERCOCET) 10-325 mg per tablet Take 1 tablet by mouth every 6 (six) hours as needed. (Patient not taking: Reported on 03/18/2019) ??? spironolactone (ALDACTONE) 25 MG tablet Take 1 tablet (25 mg total) by mouth once daily. Family History Problem Relation (Age of Onset) Atrial fibrillation Father, Sister Coronary artery disease Father, Mother Diabetes Father, Mother, Sister Eclampsia Mother Hypertension Father, Sister, Sister Leukemia Mother Lymphoma Brother No Known Problems Daughter, Sister Sarcoidosis Sister Throat cancer Mother Tobacco Use ??? Smoking status: Never Smoker ??? Smokeless tobacco: Never Used Substance and Sexual Activity ??? Alcohol use: Yes Frequency: 2-3 times a week Drinks per session: 1 or 2 Binge frequency: Never Comment: weekends ??? Drug use: No ??? Sexual activity: Not Currently Partners: Male control/protection: None, See Surgical Hx Review of Systems Unable to perform ROS: Acuity of condition Objective: Vital Signs (Most Recent): Temp: 97.5 ??F (36.4 ??C) (11/21/19 1611) Pulse: 94 (11/21/19 1602) Resp: 12 (11/21/19 1633) BP: (!) 189/92 (11/21/19 1635) SpO2: 98 % (11/21/19 1602) Vital Signs (24h Range): Temp: [97.5 ??F (36.4 ??C)] 97.5 ??F (36.4 ??C) Pulse: [75-100] 94 Resp: [12-33] 12 SpO2: [97 %-98 %] 98 % BP: (168-200)/(90-103) 189/92 Weight: 122 kg (269 lb) Body mass index is 43.42 kg/m??. Physical Exam Constitutional: Appearance: She is well-developed. HENT: Head: Normocephalic and atraumatic. Right Ear: External ear normal. Eyes: Pupils: Pupils are equal, round, and reactive to light. Neck: Musculoskeletal: Normal range of motion and neck supple. Cardiovascular: Rate and Rhythm: Normal rate and regular rhythm. Pulses: Normal pulses. Heart sounds: Normal heart sounds. Pulmonary: Effort: Pulmonary effort is normal. Breath sounds: Normal breath sounds. Abdominal: General: Bowel sounds are normal. Palpations: Abdomen is soft. Tenderness: There is no abdominal tenderness. Comments: Obese Musculoskeletal: Normal range of motion. Skin: General: Skin is warm. Neurological: Mental Status: She is alert. Psychiatric: Mood and Affect: Mood is not anxious or depressed. Speech: Speech normal. Thought Content: Thought content does not include suicidal ideation. CRANIAL NERVES CN III, IV, Pupils are equal, round, and reactive to light. Significant Labs: A1C: Recent Labs Lab 10/24/19 1540 HGBA1C 6.4* ABGs: Recent Labs Lab 11/21/19 1504 PH 7.335* PCO2 48.5* HCO3 25.8 POCSATURATED 100 BE 0 CBC: Recent Labs Lab 11/21/19 1502 WBC 8.80 HGB 12.2 HCT 39.0 PLT 285 CMP: Recent Labs Lab 11/21/19 1502 NA 138 K 3.4* CL 102 CO2 25 GLU 123* BUN 12 CREATININE 0.8 CALCIUM 9.1 PROT 7.5 ALBUMIN 3.8 BILITOT 0.2 ALKPHOS 71 AST 27 ALT 27 ANIONGAP 11 EGFRNONAA >60 Cardiac Markers: Recent Labs Lab 11/21/19 1502 BNP <10 Coagulation: Recent Labs Lab 11/21/19 1502 INR 1.0 Lactic Acid: Recent Labs Lab 11/21/19 1502 LACTATE 2.8* Lipase: No results for input(s): LIPASE in the last 48 hours. Lipid Panel: Recent Labs Lab 11/21/19 1502 CHOL 206* HDL 51 LDLCALC 132.0 TRIG 115 CHOLHDL 24.8 Troponin: Recent Labs Lab 11/21/19 1502 TROPONINI <0.006 TSH: Recent Labs Lab 11/21/19 1502 TSH 1.016 Urine Culture: No results for input(s): LABURIN in the last 48 hours. Urine Studies: No results for input(s): COLORU, APPEARANCEUA, PHUR, SPECGRAV, PROTEINUA, GLUCUA, KETONESU, BILIRUBINUA, OCCULTUA, NITRITE, UROBILINOGEN, LEUKOCYTESUR, RBCUA, WBCUA, BACTERIA, SQUAMEPITHEL, HYALINECASTS in the last 48 hours. Invalid input(s): WRIGHTSUR All pertinent labs within the past 24 hours have been reviewed. Imaging Results MRI Brain Ischemic Inter Pro Incl MRA W/O Con (Final result) Result time 11/21/19 16:24:[address] Arshad MD (11/21/19 16:24:36) Impression: 1. No acute intracranial process. 2. MRA study is nondiagnostic secondary to ample motion artifact. Electronically signed by: Rd Arshad Date: 11/21/2019 Time: 16:24 Narrative: EXAMINATION: MRI BRAIN ISCHEMIC INTERVENTIONAL PROTOCOL INCL MRA W/O CONTRAST CLINICAL HISTORY: Stroke, follow up; TECHNIQUE: Multiplanar multisequence MR imaging of the brain was performed without intravenous contrast. Additional MRA 3D [id number] imaging with subtraction rotational images. COMPARISON: CT 11/21/2019 FINDINGS: Please note the recent negative CTA head study. Motion artifact which may diminish the sensitivity. Intracranial Compartment: Ventricles and sulci are normal in size for age without evidence of hydrocephalus. No extra-axial blood or fluid collections. The brain parenchyma appears normal. No mass lesion, acute hemorrhage, edema, or acute infarct. Normal vascular flow voids are preserved. Skull/Extracranial Contents (limited evaluation): Bone marrow signal intensity is normal. MRA study is nondiagnostic with ample motion artifact. Recommend clinical correlation retained follow-up. X-Ray Chest AP Portable (Final result) Result time 11/21/19 15:06:53 Final result by Luis Sheikh MD (11/21/19 15:06:53) Impression: No radiographic acute intrathoracic process seen on this limited hypoventilatory view. Electronically signed by: Luis Sheikh MD Date: 11/21/2019 Time: 15:06 Narrative: EXAMINATION: XR CHEST AP PORTABLE CLINICAL HISTORY: Stroke; TECHNIQUE: Single frontal view of the chest was performed. COMPARISON: Chest radiograph 03/28/2019 FINDINGS: Patient is somewhat rotated. Resolution is limited by body habitus with underpenetration. Trachea is midline and patent. There is mild nonspecific elevation of the right hemidiaphragm. Cardiomediastinal silhouette is midline and within normal limits for age. The lungs are symmetrically hypoexpanded without large consolidation, pleural effusion or pneumothorax allowing for low lung volumes. No acute osseous process seen. PA and lateral views can be obtained. CTA Head and Neck (xpd) (Final result) Result time 11/21/19 15:10:00 Procedure changed from CTA STROKE MULTI-PHASE Final result by Joni Dill MD (11/21/19 15:10:00) Impression: 1. No acute intracranial findings. No abnormal intracranial enhancement. 2. Overall unremarkable CTA head and neck examination. No evidence of flow- limiting stenosis or large vessel occlusion Electronically signed by: Joni Dill Date: 11/21/2019 Time: 15:10 Narrative: EXAMINATION: CTA HEAD AND NECK (XPD) CLINICAL HISTORY: Neuro deficit, acute, stroke suspected; TECHNIQUE: Non contrast low dose axial images were obtained through the head. CT angiogram was performed from the level of the ariella to the top of the head following the IV administration of 100mL of Omnipaque 350. Sagittal and coronal reconstructions and maximum intensity projection reconstructions were performed. Arterial stenosis percentages are based on NASCET measurement criteria. COMPARISON: Brain MRI performed 02/04/2017 FINDINGS: Head CT: No acute intracranial hemorrhage, mass effect, or midline shift is appreciated. No evidence of acute transcortical infarct by noncontrast CT. Parenchymal volume appears to be within normal limits forpatient age. No evidence of hydrocephalus. Basal cisterns are patent. No extra-axial fluid collection is seen.Extracranial soft tissue structures appear to be within normal limits. No aggressive osseous lesionis seen. Scattered relatively minor degree of paranasal sinus mucosal thickening is evident. Mastoid air cells and middle ear cavities appear grossly clear. No abnormal postcontrast enhancement. Partially empty sella variant. NECK: Imaged aortic arch: Normal Right common and cervical internal carotid arteries:: No evidence of flow- limiting stenosis. Left common and cervical internal carotid arteries: No evidence of flow-limiting stenosis. Right cervical vertebral artery: There is no hemodynamically significant stenosis or dissection Left cervical vertebral artery: There is no hemodynamically significant stenosis or dissection. HEAD: Right anterior circulation:Normal Right ophthalmic artery is patent. Left anterior circulation: NormalLeft ophthalmic artery is patent. Posterior circulation: There is no hemodynamically significant vertebrobasilar stenosis. There is nosignificant GUITAR MAKER stenosis. Posterior inferior cerebellar arteries patent at origin. Anterior and posterior communicating arteries: The anterior communicating artery appears patent. Posterior communicating arteries are not reliably visualized. NON-ANGIOGRAPHIC FINDINGS: Visualized intracranial contents: As above Soft tissues of the neck: Unremarkable. Visualized sinuses: Minimal paranasal sinus mucosal thickening. Dentition: Unremarkable. Spine: Unremarkable. Visualized lungs: Motion compromises evaluation of the lung parenchyma. Subsegmental atelectasis may be present. No focal parenchymal opacity is noted. Significant Imaging: I have reviewed all pertinent imaging results/findings within the past 24 hours. documented in this encounter Plan of Treatment Not on filedocumented as of this encounter Goals Goal Patient Goal Associated Recent Patient-Stated? 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 CBC W/ AUTO Routine 11/22/2019 7:02 Results for this DIFFERENTIAL AM CDT procedure are i n the results section. TROPONIN I Routine 11/22/2019 7:02 Results for this AM CDT procedure are i n the results section. APTT Routine 11/22/2019 7:02 Results for this AM CDT procedure are i n the results section. PROTIME-INR Routine 11/22/2019 7:02 Results for this AM CDT procedure are i n the results section. PHOSPHORUS Routine 11/22/2019 7:02 Results for this AM CDT procedure are i n the results section. MAGNESIUM Routine 11/22/2019 7:02 Results for this AM CDT procedure are i n the results section. CK-MB Routine 11/22/2019 7:02 Results for this AM CDT procedure are i n the results section. COMPREHENSIVE METABOLIC Routine 11/22/2019 7:02 Results for this PANEL AM CDT procedure are i n the results section. XR CHEST AP PORTABLE Routine 11/22/2019 5:40 Res ults for this AM CDT procedure are i n the results section. POCT GLUCOSE Routine 11/22/2019 4:09 Results for this AM CDT procedure are i n the results section. DRUGS OF ABUSE SCREEN, Routine 11/21/2019 7:34 R esults for this BLOOD PM CDT procedure are i n the results section. URINALYSIS, REFLEX TO STAT 11/21/2019 7:20 Re sults for this URINE CULTURE PM CDT procedure are in the results section. DRUG SCREEN PANEL, STAT 11/21/2019 7:20 Resul ts for this URINE EMERGENCY PM CDT procedure ar e in the results section. SARS-COV-2 RNA STAT 11/21/2019 4:23 Results f or this AMPLIFICATION, QUAL PM CDT procedur e are in the results section. ALCOHOL,MEDICAL STAT 11/21/2019 4:20 Results for this (ETHANOL) PM CDT procedure are i n the results section. ACETAMINOPHEN LEVEL STAT 11/21/2019 4:20 Resu lts for this PM CDT procedure are i n the results section. MRI BRAIN ISCHEMIC STAT 11/21/2019 3:59 Resul ts for this INTERVENTIONAL PROTOCOL PM CDT proc edure are in INCL MRA W/O CONTRAST the re sults section. ISTAT PROCEDURE Routine 11/21/2019 3:04 Results for this PM CDT procedure are i n the results section. CBC W/ AUTO STAT 11/21/2019 3:02 Results for this DIFFERENTIAL PM CDT procedure are i n the results section. TROPONIN I STAT 11/21/2019 3:02 Results for this PM CDT procedure are i n the results section. PROTIME-INR STAT 11/21/2019 3:02 Results for this PM CDT procedure are i n the results section. C-REACTIVE PROTEIN STAT 11/21/2019 3:02 Resul ts for this PM CDT procedure are i n the results section. TSH STAT 11/21/2019 3:02 Results for this PM CDT procedure are i n the results section. B-TYPE NATRIURETIC STAT 11/21/2019 3:02 Resul ts for this PEPTIDE PM CDT procedure are i n the results section. MAGNESIUM STAT 11/21/2019 3:02 Results for this PM CDT procedure are i n the results section. LACTATE DEHYDROGENASE STAT 11/21/2019 3:02 Re sults for this PM CDT procedure are i n the results section. LACTIC ACID, PLASMA STAT 11/21/2019 3:02 Resu lts for this PM CDT procedure are i n the results section. FERRITIN STAT 11/21/2019 3:02 Results for this PM CDT procedure are i n the results section. CK STAT 11/21/2019 3:02 Results for this PM CDT procedure are i n the results section. LIPID PANEL STAT 11/21/2019 3:02 Results for this PM CDT procedure are i n the results section. COMPREHENSIVE METABOLIC STAT 11/21/2019 3:02 Results for this PANEL PM CDT procedure are i n the results section. ISTAT CREATININE Routine 11/21/2019 3:00 Results for this PM CDT procedure are i n the results section. XR CHEST AP PORTABLE STAT 11/21/2019 2:58 Res ults for this PM CDT procedure are i n the results section. HC EKG STAT 11/21/2019 2:58 Chemical exposure Result s for this PM CDT procedure are i n the results section. ISTAT PROCEDURE Routine 11/21/2019 2:58 Results for this PM CDT procedure are i n the results section. CTA HEAD AND NECK (XPD) STAT 11/21/2019 2:54 Results for this PM CDT procedure are i n the results section. CRITICAL CARE Routine 11/21/2019 2:52 Results fo r this PM CDT procedure are i n the results section. POCT ARTERIAL BLOOD GAS Routine 11/21/2019 2:42 PM CDT POCT VENOUS BLOOD GAS STAT 11/21/2019 2:41 PM CDT CARDIAC MONITORING 11/21/2019 12:00 STRIPS AM CDT documented in this encounter Results Echo Color Flow Doppler? Yes (11/22/2019 8:25 AM CDT) Pathologist Sig nature Ascending aorta 2.71 cm ROGELIO AGFA CV STJ 2.68 cm ROGELIO AGFA CV AV mean gradient 6 mmHg ROGELIO AGFA CV Ao peak eligio 1.76 m/s ROGELIO AGFA CV Ao VTI 29.42 cm ROGELIO AGFA CV IVRT 74.22 msec ROGELIO AGFA CV IVS 1.30 (A) 0.6 - 1.1 cm ROGELIO AGFA CV LA size 4.11 cm ROGELIO AGFA CV Left Atrium Major [place] 5.91 cm ROGELIO AGFA CV Left Atrium Minor [place] 4.96 cm ROGELIO AGFA CV LVIDd 5.00 3.5 - 6.0 cm ROGELIO AGFA CV LVIDs 2.93 2.1 - 4.0 cm ROGELIO AGFA CV LVOT diameter 2.19 cm ROGELIO AGFA CV LVOT peak VTI 29.88 cm ROGELIO AGFA CV Posterior Wall 1.00 (A) 0.6 - 1.1 cm ROGELIO AGFA CV MV Peak A Eligio 1.11 m/s ROGELIO AGFA CV E wave decelartion time 144.94 msec ROGELIO AGFA CV MV Peak E Eligio 1.18 m/s ROGELIO AGFA CV PV Peak D Eligio 0.35 m/s ROGELIO AGFA CV PV Peak S Eligio 0.58 m/s ROGELIO AGFA CV RA Major [place] 4.26 cm ROGELIO AGFA CV RA Width 2.99 cm ROGELIO AGFA CV TAPSE 2.85 cm ROGELIO AGFA CV TDI LATERAL 0.06 m/s ROGELIO AGFA CV TDI SEPTAL 0.08 m/s ROGELIO AGFA CV LA WIDTH 4.35 cm ROGELIO AGFA CV Ao root annulus 2.47 cm ROGELIO AGFA CV PV PEAK VELOCITY 1.07 cm/s ROGELIO AGFA CV MV stenosis pressure 1/2 42.03 ms ROGELIO AGFA CV time LV Diastolic Volume 119.15 mL ROGELIO AGFA CV LV Systolic Volume 33.17 mL ROGELIO AGFA CV LVOT peak eligio 1.58 m/s ROGELIO AGFA CV Mr max eligio 0.05 m/s ROGELIO AGFA CV LV LATERAL E/E' RATIO 19.67 m/s ROGELIO AGFA CV LV SEPTAL E/E' RATIO 14.75 m/s ROGELIO AGFA CV FS 41 % ROGELIO AGFA CV LA volume 81.96 cm3 ROGELIO AGFA CV LV mass 220.26 g ROGELIO AGFA CV Left Ventricle Relative Wall 0.40 cm ROGELIO AGFA CV Thickness AV valve area 3.82 cm2 ROGELIO AGFA CV AV Velocity Ratio 0.90 ROGELIO AGFA CV AV index (prosthetic) 1.02 ROGELIO AGFA CV MV valve area p 1/2 method 5.23 cm2 ROGELIO AGFA CV E/A ratio 1.06 ROGELIO AGFA CV Mean e' 0.07 m/s ROGELIO AGFA CV Pulm vein S/D ratio 1.66 ROGELIO AGFA CV LVOT area 3.8 cm2 ROGELIO AGFA CV LVOT stroke volume 112.50 cm3 ROGELIO AGFA CV AV peak gradient 12 mmHg ROGELIO AGFA CV E/E' ratio 16.86 m/s ROGELIO AGFA CV LV Systolic Volume Index 14.7 mL/m2 ROGELIO AGFA CV LV Diastolic Volume Index 52.77 mL/m2 ROGELIO AGFA CV LA Volume Index 36.3 mL/m2 ROGELIO AGFA CV LV Mass Index 98 g/m2 ROGELIO AGFA CV BSA 2.37 m2 ROGELIO AGFA CV Right Atrial Pressure (from 3 mmHg ROGELIO AGFA CV IVC) Specimen Narrative Performed At This result has an attachment that is no t available. ?? Mild eccentric left ventricular hypertrophy. ROGELIO AGFA CV ?? Normal left ventricular systolic function. The daniel mated ejection fraction is 55-60%. ?? Grade II (moderate) left ventricular diastolic dysf unction consistent with pseudonormalization. ?? No wall motion abnormalities. ?? Normal right ventricular systolic function. ?? Mild left atrial enlargement. ?? Normal central venous pressure (3 mmHg). ?? Mild mitral regurgitation. Performing Organization Address City/State/ZIP Code Phon e Number ROGELIO AGFA CV ROGELIO AGFA CV n/a CBC auto differential (11/22/2019 7:02 AM CDT) WBC 9.11 3.90 - 12.70 [facility] RBC 4.52 4.00 - 5.40 [facility] Hemoglobin 12.3 12.0 - 16.[address] [facility] g/dL [facility] Hematocrit 38.8 37.0 - 48.5 [facility] MCV 86 82 - 98 [facility] MCH 27.2 27.0 - 31.[address] [facility] pg [facility] MCHC 31.7 (L) 32.0 - 36.[address] [facility] g/dL [facility] RDW 13.2 11.5 - 14.5 [facility] Platelets 292 150 - 350 [facility] MPV 10.7 9.2 - 12.[address] [facility] fL [facility] Immature 0.7 (H) 0.0 - 0.5 % [facility] Granulocytes [facility] Gran # (ANC) 4.6 1.8 - 7.7 [facility] Immature Grans (Abs) 0.06 (H) 0.00 - 0.[address] [facility] Comment: [facility] Mild elevation in immature granulocytes is non specifi c and can be seen in a variety of conditions including stres s response, acute inflammation, trauma and . Correlation with other laboratory and clinical findings is essential. Lymph # 3.4 1.0 - 4.8 [facility] [place] # 0.8 0.3 - 1.[address] [facility] K/uL [facility] Eos # 0.2 0.0 - 0.[address] [facility] K/uL [facility] Baso # 0.04 0.00 - 0.[address] [facility] K/uL [facility] nRBC 0 0 /100 WBC [facility] Gran % 50.4 38.0 - 73.[address] [facility] % [facility] Lymph % 37.7 18.0 - 48.0 [facility] % [facility] [place] % 9.2 4.0 - 15.0 % [facility] Eosinophil % 1.6 0.0 - 8.0 % [facility] Basophil % 0.4 0.0 - 1.9 % [facility] Differential Method Automated [facility] Specimen Blood - Blood Performing Organization Address City/State/ZIP Code Phon e Number [facility] [address] [facility] [place] [address] [place] Comprehensive metabolic panel (11/22/2019 7:02 AM CDT) Sodium 138 136 - [address] [facility] mmol/L [facility] Potassium 4.1 3.5 - 5.[address] [facility] mmol/L [facility] Chloride 101 95 - [address] [facility] mmol/L [facility] CO2 25 23 - [address] [facility] mmol/L [facility] Glucose 130 (H) 70 - [address] [facility] mg/dL [facility] BUN 14 6 - 20 mg/dL [facility] Creatinine 1.0 0.5 - 1.[address] [facility] mg/dL [facility] Calcium 9.5 8.7 - 10.[address] [facility] mg/dL [facility] Total Protein 8.0 6.0 - 8.4 [facility] g/dL [facility] Albumin 4.0 3.5 - 5.2 [facility] g/dL [facility] Total Bilirubin 0.2 0.1 - 1.[address] [facility] Comment: mg/dL [facility] For infants and newborns, interpretation of results sh ould be based on gestational age, weight and in agreement with clini stefania observations. Premature recommended reference ranges: Up to 24 hours.............<8.0 mg/dL Up to 48 hours............<12.0 mg/dL 3-5 days..................<15.0 mg/dL 6-29 days.................<15.0 mg/dL Alkaline 75 55 - 135 U/L [facility] Phosphatase [facility] AST 25 10 - 40 U/L [facility] ALT 29 10 - 44 U/L [facility] Anion Gap 12 8 - [address] [facility] mmol/L [facility] eGFR if >60 >[address] [facility] [place] mL/min/1.73 [facility] m^2 eGFR if non >60 >[address] [facility] Comment: mL/min/1.73 [facility] Calculation used to obtain the estimated glomerular fi ltration m^2 rate (eGFR) is the CKD-EPI equation. Specimen Blood - Blood Performing Organization Address [facility] Phon e [address] [place] [address] [place] Protime-INR (11/22/2019 7:02 AM CDT) Prothrombin Time 9.8 9.0 - 12.[address] [facility] sec [facility] INR 0.9 0.8 - 1.[address] [facility] Comment: [facility] Coumadin Therapy: 2.0 - 3.0 for INR for all indicators except mechanical heart valves and antiphospholipid syndromes which should use 2.5 - 3.5. Specimen Blood - Blood Performing Organization Address [facility] Phon e Number [facility] [address] [facility] [facility] [place] [address] [place] APTT (11/22/2019 7:02 AM CDT) aPTT 27.1Comment: aPTT 21.0 - 32.[address] [facility] therapeutic range = [facility] 39-69 seconds Specimen Blood - Blood Performing Organization Address City/[facility]/ZIP Code Phon e Number [facility] [address] [facility] [place] [address] [place] CK-MB (11/22/2019 7:02 AM CDT) Pathologist Sig nature CPK 112 20 - 180 U/L [facility] CPK MB 0.6 0.1 - 6.5 ng/mL [facility] MB % 0.5 0.0 - 5.0 % [facility] Comment: [facility] To be positive, the MB% must be greater than 5% AND th e CK-MB greater than 6.5 ng/mL. Values not in the reference in terval, but not qualifying as positive, should be considered trace. Specimen Blood - Blood Performing Organization Address [facility]/ZIP Code Phon e Number [facility] [address] [facility] [place] [address] [place] Troponin I (11/22/2019 7:02 AM CDT) Troponin I 0.012 0.000 - 0.[address] [facility] Comment: ng/mL [facility] The reference interval for Troponin I represents the 9 9th percentile cutoff for our facility and is consistent with 3rd generation assay performance. Specimen Blood - Blood Performing Organization Address [facility]/ZIP Code Phon e Number [facility] [address] [facility] [place] [address] [place] Phosphorus (11/22/2019 7:02 AM CDT) Pathologist Sig nature Phosphorus 3.8 2.7 - 4.5 mg/dL [facility] Specimen Blood - Blood Performing Organization Address City/[facility]/ZIP Code Phon e Number [address] [place] [address] [place] Magnesium (11/22/2019 7:02 AM CDT) Pathologist Sig nature Magnesium 1.8 1.6 - 2.6 mg/dL [facility] Specimen Blood - Blood Performing Organization Address [facility]/ZIP Code Phon e Number [facility] [address] [facility] [place], [place] [address] [place] X-Ray Chest AP Portable (11/22/2019 5:40 AM CDT) Specimen Impressions Performed At [facility] No acute radiographic findings in the est. Electronically signed by: Agus Zavaleta MD Date: 11/22/2019 Time: 07:15 Narrative Performed At EXAMINATION: [facility] FLUENCY XR CHEST AP PORTABLE CLINICAL HISTORY: possible lung injury; TECHNIQUE: Single frontal view of the chest was per formed. COMPARISON: 11/21/2019 FINDINGS: Lungs are better expanded when compared to prior exam. ??Cardiomediastinal silhouette is at the upper limits of normal in size. ??Pulmonary vascularity is within normal limits. ??Lungs show no evidence of significant focal consolidation, large eff usion or pneumothorax. ??Bones show no acute abno rmalities. Procedure Note Interface, Rad Results In - 11/22/2019 7:17 AM CDT EXAMINATION: XR CHEST AP PORTABLE CLINICAL HISTORY: possible lung injury; TECHNIQUE: Single frontal view of the chest was per formed. COMPARISON: 11/21/2019 FINDINGS: Lungs are better expanded when compared to prior exam. Cardiomediastinal silhouette is at the upper limits of normal in size. Pulmonary vascularity is within normal limits. Lungs show no evidence of significant focal consolidation, large e ffusion or pneumothorax. Bones show no acute abnormalities. Impression: No acute radiographic findings in the est. Electronically signed by:Maggy Toribio Date:11/22/2019 Time:07:15 Performing Organization Address [facility] Code Phon e Number [facility] n/a POCT glucose (11/22/2019 4:09 AM CDT) Pathologist Sig nature POCT Glucose 152 (H) 70 - 110 mg/dL [facility] Specimen Blood Performing Organization Address City/[facility] Phon e Number [facility] N/A Drugs of Abuse Screen, Blood (11/21/2019 7:34 PM CDT) Amphetamine Scrn Negative [facility] Barbiturate Scrn Negative [facility] Benzodiazepines Negative [facility] Cocaine Lvl Negative [facility] Methadone (Dolophine), Negative [facility] Serum [facility] Opiates, Blood Negative [facility] Phencyclidine, Blood Negative [facility] Propoxyphene Negative [facility] THC (Marijuana) Negative [facility] Metabolite, bl REFERENCE [facility] Alcohol Scrn 76 [facility] Comment: REFERENCE [facility] Ethanol confirmation performed by [facility]. The ethanol confirmation decision limit is 10 mg/dL. Screen Decision Limits Drug Analyzed ? Screen ? Units ? ------ ? ----- Amphetamine ? 500 ?ng/mL Barbiturate ? 150 ?ng/mL Benzodiazepines ? 100 ?ng/mL Cocaine ? 150 ?ng/mL Ethanol ? 10 ? mg/dL Toxic Blood Ethanol >300 ?mg/dL Methadone ? 150 ?ng/mL Opiates ? 150 ?ng/mL Phencyclidine ? 12 ? ng/mL Propoxyphene ?150 ?ng/mL THC (Cannabis) ?50 ? ng/mL A positive immunoassay result on a serum drug screen i s considered presumptive evidence for the presence of th e drug or its metabolite. Since some immunoassay tests detect only inactive metabolites and others are sensit derik to very low drug levels, positive results may not venkat elate with the patient's physiological state. For confirmation of positive immunoassay results by an alternate method or for consultation, ??please contact the laboratory. If applicable, any drug confirmation testing reported here was developed and the performance characteristics determined by [facility]. This confirmation testing has not been cleared or approved by the FDA. The laboratory is regulated under CLIA as qualified to perform high-complexity testing. This shasha t is used for patient testing purposes. It should not be regarded as investigational or for research. Test performed at [facility], [address] [place], [place] ??[address] ? Juan Carreon MD ??- Flight Crew Time Clerk Specimen Blood - Blood Performing Organization Address [facility] Code Phon e Number [facility] [address] [place] [address] Urinalysis, Reflex to Urine Culture Urine, Clean Catch (11/21/2019 7:20 PM CDT) Specimen UA Urine, Clean Catch [facility] Color, UA Yellow Yellow, Straw, [facility] Lesley [facility] Appearance, UA Clear Clear [facility] pH, UA 6.0 5.0 - 8.0 [facility] Specific [place], <=1.005 (A) 1.005 - 1.[address] [facility] UA [facility] Protein, UA Negative Negative [facility] Comment: [facility] Recommend a 24 hour urine protein or a urine protein/creatinine ratio if globulin induced proteinur ia is clinically suspected. Glucose, UA Negative Negative [facility] Ketones, UA Trace (A) Negative [facility] Bilirubin (UA) Negative Negative [facility] Occult Blood UA Trace (A) Negative [facility] Nitrite, UA Negative Negative [facility] Urobilinogen, UA Negative <2.0 EU/dL [facility] Leukocytes, UA Negative Negative [facility] Specimen Urine - Urine Narrative Performed At Specimen Source->Urine [facility] Performing Organization Address City/[facility]/ZIP Code Phon e Number [facility] [address] [place] [address] [place] Drug screen panel, emergency (11/21/2019 7:20 PM CDT) Component Value Ref Performed At Pathologist Range Signature Benzodiazepines Negative [facility] Methadone Negative [facility] metabolites [facility] Cocaine (Metab.) Negative [facility] Opiate Scrn, Ur Negative [facility] Barbiturate Screen, Negative [facility] Amphetamine Screen, Negative [facility] [place] THC Negative [facility] [place] Phencyclidine Negative [facility] [place] Creatinine, Urine 54.9 15.0 - [facility] Comment: 325.0 MEDICAL The random urine reference ranges provided were establ ished mg/dL CENTER - for 24 hour urine collections. ??No reference ranges e xist for [place] random urine specimens. ??Correlate clinically. [facility]oxicology [facility] Comment: MEDICAL This screen includes the following classes of drugs at the CENTER - listed cut-off: [place] Benzodiazepines ?200 ng/ml Methadone ?300 ng/ml Cocaine metabolite ? 300 ng/ml Opiates ?300 ng/m l Barbiturates ? 200 ng/ml Amphetamines ?1000 ng/ml Marijuana metabs (THC) ?50 ng/ml Phencyclidine (PCP) ? 25 ng/ml High concentrations of Diphenhydramine may cross-react with Phencyclidine PCP screening immunoassay giving a false positive result. High concentrations of Methylenedioxymethamphetamine ( MDMA aka Ectasy) and other structurally similar compounds may c ross- react with the Amphetamine/Methamphetamine screening immunoassay giving a false positive result. A metabolite of the anti-HIV drug Sustiva (DMP 266) ma y cause false positive results in the Marijuana metabolite (TH C) screening assay. Note: This exception list includes only more common interferants in toxicology screen testing. ??Because o f many cross-reactantspositive results on toxicology drug scr eens should be confirmed whenever results do not correlate with clinical presentation. This report is intended for use in clinical monitoring and management of patients. It is not intended for use in employment related drug testing. Because of any cross-reactants, positive results on to [employer]icoApp[employer] drug screens should be confirmed whenever results do n ot correlate with clinical presentation. Presumptive positive results are unconfirmed and may b e used only for medical purposes. Assay Intended Use: This assay provides only a prelimi nary analytical test result. A more specific alternate chemical method must be used to obtain a confirmed analytical result. Gas chromatog sarkis/mass spectrometry (GS/MS)is the preferred confirmatory meth od. Clinical consideration and professional judgement should be gaye lied to any drug of abuse test result, particularly when prelimina ry results are used. Specimen Urine - Urine, Clean Catch Narrative Performed At Specimen Source->Urine [facility] - VINNY NER Performing Organization Address City/State/ZIP Code Phon e Number [facility] - [address] [facility] [place] [address] [place] COVID-19 Rapid Screening (11/21/2019 4:23 PM CDT) SARS-CoV-2 RNA, Negative Negative [facility], Comment: [facility] Qual This test utilizes isothermal nucleic acid amplificati on technology to detect the SARS-CoV-2 RdRp nucleic acid segment. The analytical sensitivity (limit of detection) is 125 genome equivalents/mL. A POSITIVE result implies infection with the SARS-CoV- 2 virus; the patient is presumed to be contagious. ?? A NEGATIVE result means that SARS-CoV-2 nucleic acids are not present above the limit of detection. A NEGATIVE resul t should be treated as presumptive. It does not rule out the possi bility of COVID-19 and should not be the sole basis for treatmen t decisions. If COVID-19 is strongly suspected based on clinical an d exposure history, re-testing using an alternate molecular assay should be considered. This test is only for use under the Food and Drug Administration s Emergency Use Authorization (EUA). Commercial kits are provided by [employer]. Performance characteristics of the EUA have been indep endently verified by [facility] Department of Pathology and Laboratory Medicine. The ID NOW COVID-19 Letter of Authorization, along wit h the authorized Fact Sheet for Healthcare Providers, the au thorized Fact Sheet for Patients, and authorized labeling are availa ble on the FDA website: www.fda.gov/MedicalDevices/Safety/EmergencySituations/ erz914377.htm Specimen Nasal Swab - Nasal Swab Performing Organization Address [facility]/ZIP [facility] Phon e Number [address] [address] [place] Acetaminophen level (11/21/2019 4:20 PM CDT) Acetaminophen <3.0 (L) 10.0 - 20.[address] [facility] (Tylenol), Serum Comment: ug/mL [facility] Toxic Levels: Adults (4 hr post-ingestion).........>150 ug/mL Adults (12 hr post-ingestion)........>40 ug/mL Peds (2 hr post-ingestion, liquid)...>225 ug/mL Specimen Performing Organization Address [facility] Phon e Number [facility] [address] [place] [address] [place] Ethanol (11/21/2019 4:20 PM CDT) Pathologist Sig nature Alcohol, Serum 197 (H) <10 mg/dL [facility] Specimen Performing Organization Address [facility] e Number [address] [place] [address] [place] MRI Brain Ischemic Inter Pro Incl MRA W/O Con (11/21/2019 3:59 PM CDT) Specimen Impressions Performed At [facility] 1. No acute intracranial process. 2. MRA study is nondiagnostic secondary to ample motion artifact. Electronically signed by: Rd Arshad Date: 11/21/2019 Time: 16:24 Narrative Performed At EXAMINATION: [facility] MRI BRAIN ISCHEMIC INTERVENTIONAL PROTOC OL INCL MRA W/O CONTRAST CLINICAL HISTORY: Stroke, follow up; TECHNIQUE: Multiplanar multisequence MR imaging of the brain was performed without intravenous contrast. ??Additional MRA 3D time -of-flight imaging with subtraction rotational imag es. COMPARISON: CT 11/21/2019 FINDINGS: Please note the recent negative CTA head study. Motion artifact which may diminish the s ensitivity. Intracranial Compartment: Ventricles and sulci are normal in size for age withou t evidence of hydrocephalus. No extra-axial blood or f luid collections. The brain parenchyma appears normal. No mass lesion, a cute hemorrhage, edema, or acute infarct. Normal vascular flow voids are preserved . Skull/Extracranial Contents (limited evaluation): Bone marrow signal intensity is normal. MRA study is nondiagnostic with ample motion artifact. ??Recommend clinical correlation retained follow-up. Procedure Note Interface, Rad Results In - 11/21/2019 4:27 PM CDT EXAMINATION: MRI BRAIN ISCHEMIC INTERVENTIONAL PROTOC OL INCL MRA W/O CONTRAST CLINICAL HISTORY: Stroke, follow up; TECHNIQUE: Multiplanar multisequence MR imaging of the brain was performed without intravenous contrast. Additional MRA 3D [id number] imaging with subtraction rotational images. COMPARISON: CT 11/21/2019 FINDINGS: Please note the recent negative CTA head study. Motion artifact which may diminish the s ensitivity. Intracranial Compartment: Ventricles and sulci are normal in size for age without evidence of hydrocephalus. No extra-axial blood or fluid collections. The brain parenchyma appears normal. No mass lesion, acute hemorrhage, edema, or acute infarct. Normal vascular flow voids are preserved . Skull/Extracranial Contents (limited analilia luation): Bone marrow signal intensity is normal. MRA study is nondiagnostic with ample mo tion artifact. Recommend clinical correlation retained follow-up. Impression: 1. No acute intracranial process. 2. MRA study is nondiagnostic secondary to ample motion artifact. Electronically signed by:Rd Arshad Date:11/21/2019 Time:16:24 Performing Organization Address City/State/ZIP Code Phon e Number MMODEL FLUENCY MMODEL FLUENCY n/a ISTAT PROCEDURE (11/21/2019 3:04 PM CDT) Pathologist Sig nature POC PH 7.335 (L) 7.35 - 7.45 [facility] POC PCO2 48.5 (H) 35 - 45 mmHg [facility] POC PO2 398 (H) 80 - 100 mmHg [facility] POC HCO3 25.8 24 - 28 mmol/L [facility] POC BE 0 -2 to 2 mmol/L [facility] POC SATURATED O2 100 95 - 100 % [facility] POC TCO2 27 23 - 27 mmol/L [facility] Sample ARTERIAL [facility] Site LR [facility] Allens Test Pass [facility] DelSys NRB [facility] Mode SPONT [facility] Flow 15 [facility] FiO2 95 [facility] Specimen Blood Performing Organization Address [facility]/ZIP Code Phon e Number [facility]OC UN[facility] N/A Magnesium (11/21/2019 3:02 PM CDT) Pathologist [facility] Magnesium 1.9 1.6 - 2.6 mg/dL [facility] Specimen Blood - Blood Performing Organization Address [facility] Phon e Number [facility] - [address] [place] [address] [place] Lactic Acid, Plasma (11/21/2019 3:02 PM CDT) Pathologist [facility] Lactate (Lactic 2.8 (H) 0.5 - 2.[address] [facility] Acid) Comment: mmol/L [facility] Falsely low lactic acid results can be found in sample s containing >=13.0 mg/dL total bilirubin and/or >=3.5 m g/dL direct bilirubin. Specimen Blood - Blood Performing Organization Address [facility] Phon e Number [facility] - [address] [facility] [place] [address] [place] CK (11/21/2019 3:02 PM CDT) Pathologist [facility] CPK 142 20 - 180 U/L [facility] Specimen Blood - Blood Performing Organization Address [facility] Phon e Number [facility] - [address] [facility] [place] [address] [place] Lactate Dehydrogenase (11/21/2019 3:02 PM CDT) Pathologist [facility] nature LD 213Comment: Results 110 - 260 U/L [facility] are increased in [facility] hemolyzed samples. Specimen Blood - Blood Performing Organization Address City/[facility]/ZIP [facility] Phon e Number [facility] - [address] [facility] [place] [address] [place] Ferritin (11/21/2019 3:02 PM CDT) Pathologist [facility] Ferritin 129 20.0 - 300.0 ng/mL [facility] Specimen Blood - Blood Performing Organization Address [facility]/ZIP Code Phon e Number [facility] [address] [place] [address] [place] C-Reactive Protein (11/21/2019 3:02 PM CDT) Pathologist [facility] CRP 8.6 (H) 0.0 - 8.2 mg/L [facility] Specimen Blood - Blood Performing Organization Address City/State/ZIP Code Phon e Number [facility] - [address] [place] [address] [place] B-Type natriuretic peptide (11/21/2019 3:02 PM CDT) Pathologist [facility] BNP <10Comment: Values of 0 - 99 pg/mL [facility] less than 100 pg/ml [facility] are consistent with non-CHF populations. Specimen Blood - Blood Performing Organization Address City/[facility]/ZIP Code [facility] e Number [facility] - [address] [place] [address] [place] Troponin I (11/21/2019 3:02 PM CDT) [facility] Troponin I <0.006 0.000 - 0.[address] [facility] Comment: ng/mL [facility] The reference interval for Troponin I represents the 9 9th percentile cutoff for our facility and is consistent with 3rd generation assay performance. Specimen Blood - Blood Performing Organization Address City/[facility]/ZIP Code Phon e Number [facility] - [address] [place] [address] [place] LDL - Lipid Panel (11/21/2019 3:02 PM CDT) Pathologist [facility] Cholesterol 206 (H) 120 - 199 [facility] Comment: mg/dL [facility] The National Cholesterol Education Program (NCEP) has set the following guidelines (reference ranges) for Cholestero l: Optimal.....................<200 mg/dL Borderline High.............200-239 mg/dL High........................> or = 240 mg/dL Triglycerides 115 30 - 150 [facility] Comment: mg/dL [facility] The National Cholesterol Education Program (NCEP) has set the following guidelines (reference values) for triglyceri madi: Normal......................<150 mg/dL Borderline High.............150-199 mg/dL High........................200-499 mg/dL HDL 51 40 - 75 [facility] Comment: mg/dL [facility] The National Cholesterol Education Program (NCEP) has set the following guidelines (reference values) for HDL Choles terol: Low...............<40 mg/dL Optimal...........>60 mg/dL LDL Cholesterol 132.0 63.0 - 159.0 [facility] Comment: mg/dL [facility] The National Cholesterol Education Program (NCEP) has set the following guidelines (reference values) for LDL Choles terol: Optimal.......................<130 mg/dL Borderline High...............130-159 mg/dL High..........................160-189 mg/dL Very High.....................>190 mg/dL HDL/Cholesterol Ratio 24.8 20.0 - 50.0 [facility] % [facility] Total Cholesterol/HDL 4.0 2.0 - 5.0 [facility] Ratio [facility] Non-HDL Cholesterol 155 mg/dL [facility] Comment: [facility] Risk category and Non-HDL cholesterol goals: Coronary heart disease (CHD)or equivalent (10-year ris k of CHD >20%): Non-HDL cholesterol goal ? <130 mg/dL Two or more CHD risk factors and 10-year risk of CHD < = 20%: Non-HDL cholesterol goal ? <160 mg/dL 0 to 1 CHD risk factor: Non-HDL cholesterol goal ? <190 mg/dL Specimen Blood - Blood Performing Organization Address City/State/ZIP Code Phon e Number [facility] - [address] [place] [id number] [place] TSH (11/21/2019 3:02 PM CDT) Pathologist Sig nature TSH 1.016 0.400 - 4.000 uIU/mL [facility] [place] Specimen Blood - Blood Performing Organization Address [facility]/ZIP Code Phon e Number [address] [address] [place] Protime-INR (11/21/2019 3:02 PM CDT) Prothrombin Time 10.3 9.0 - 12.[address] [facility] sec [facility] INR 1.0 0.8 - 1.[address] [facility] Comment: [facility] Coumadin Therapy: 2.0 - 3.0 for INR for all indicators except mechanical heart valves and antiphospholipid syndromes which should use 2.5 - 3.5. Specimen Blood - Blood Performing Organization Address [facility]/ZIP Code Phon e Number [address] [address] [place] Comprehensive metabolic panel (11/21/2019 3:02 PM CDT) Sodium 138 136 - 145 [facility] mmol/L [facility] Potassium 3.4 (L) 3.5 - 5.1 [facility] mmol/L [facility] Chloride 102 95 - 110 [facility] mmol/L [facility] CO2 25 23 - 29 [facility] mmol/L [facility] Glucose 123 (H) 70 - 110 [facility] mg/dL [facility] BUN 12 6 - 20 mg/dL [facility] Creatinine 0.8 0.5 - 1.4 [facility] mg/dL [facility] Calcium 9.1 8.7 - 10.5 [facility] mg/dL [facility] Total Protein 7.5 6.0 - 8.4 [facility] g/dL [facility] Albumin 3.8 3.5 - 5.2 [facility] g/dL [facility] Total Bilirubin 0.2 0.1 - 1.[address] [facility] Comment: mg/dL [facility] For infants and newborns, interpretation of results sh ould be based on gestational age, weight and in agreement with clini stefania observations. Premature Infant recommended reference ranges: Up to 24 hours.............<8.0 mg/dL Up to 48 hours............<12.0 mg/dL 3-5 days..................<15.0 mg/dL 6-29 days.................<15.0 mg/dL Alkaline 71 55 - 135 U/L [facility] Phosphatase [facility] AST 27 10 - 40 U/L [facility] ALT 27 10 - 44 U/L [facility] Anion Gap 11 8 - [address] [facility] mmol/L [facility] eGFR if >60 >[address] [facility] Hungarian mL/min/1.73 [facility] m^2 eGFR if non >60 >[address] [facility] Comment: mL/min/1.73 [facility] Calculation used to obtain the estimated glomerular fi ltration m^2 rate (eGFR) is the CKD-EPI equation. Specimen Blood - Blood Performing Organization Address City/State/ZIP Code Phon e Number [facility] - [address] [facility] [place] [address] [place] CBC W/ AUTO DIFFERENTIAL (11/21/2019 3:02 PM CDT) WBC 8.80 3.90 - 12.[address] [facility] K/uL [facility] RBC 4.59 4.00 - 5.[address] [facility] M/uL [facility] Hemoglobin 12.2 12.0 - 16.[address] [facility] g/dL [facility] Hematocrit 39.0 37.0 - 48.[address] [facility] % [facility] MCV 85 82 - 98 fL [facility] MCH 26.6 (L) 27.0 - 31.0 [facility] MCHC 31.3 (L) 32.0 - 36.[address] [facility] g/dL [facility] RDW 13.0 11.5 - 14.5 [facility] Platelets 285 150 - 350 [facility] MPV 10.4 9.2 - 12.[address] [facility] fL [facility] Immature 1.1 (H) 0.0 - 0.5 % [facility] Granulocytes [facility] Gran # (ANC) 4.0 1.8 - 7.7 [facility] Immature Grans (Abs) 0.10 (H) 0.00 - 0.[address] [facility] Comment: [facility] Mild elevation in immature granulocytes is non specifi c and can be seen in a variety of conditions including stres s response, acute inflammation, trauma and . Correlation with other laboratory and clinical findings is essential. Lymph # 3.8 1.0 - 4.8 [facility] [place] # 0.8 0.3 - 1.0 [facility] Eos # 0.1 0.0 - 0.5 [facility] Baso # 0.04 0.00 - 0.20 [facility] nRBC 0 0 /100 WBC [facility] Gran % 45.1 38.0 - 73.[address] [facility] % [facility] Lymph % 43.1 18.0 - 48.0 [facility] [place] % 8.6 4.0 - 15.0 % [facility] Eosinophil % 1.6 0.0 - 8.0 % [facility] Basophil % 0.5 0.0 - 1.9 % [facility] Differential Method Automated [facility] Specimen Blood - Blood Performing Organization Address City/State/ZIP Code Phon e Number [facility] - [address] [place] [address] [place] ISTAT CREATININE (11/21/2019 3:00 PM CDT) Pathologist Sig nature POC Creatinine 0.9 0.5 - 1.4 mg/dL [facility] Sample VENOUS UNIPOC Site Nathaly/UAC [facility] Allens Test N/A [facility] DelSys Nasal Can [facility] Mode SPONT [facility] Flow 3 [facility] Specimen Blood Performing Organization Address City/State/ZIP Code Phon e Number [facility] N/A X-Ray Chest AP Portable (11/21/2019 2:58 PM CDT) Specimen Impressions Performed At [facility] No radiographic acute intrathoracic process seen on th is limited hypoventilatory view. Electronically signed by: Maggy Jerome Date: 11/21/2019 Time: 15:06 Narrative Performed At EXAMINATION: ODEL FLUENCY XR CHEST AP PORTABLE CLINICAL HISTORY: Stroke; TECHNIQUE: Single frontal view of the chest was per formed. COMPARISON: Chest radiograph 03/28/2019 FINDINGS: Patient is somewhat rotated. ??Resolution is limited b y body habitus with underpenetration. ??Trachea is midline and patent . ??There is mild nonspecific elevation of the right hemidiaphragm. ??Cardiomediastinal silhouette is midline and within n ormal limits for age. ??The lungs are symmetrically hypoexpanded withou t large consolidation, pleural effusion or pneumothorax allowi ng for low lung volumes. ??No acute osseous process seen. ??PA and lat eral views can be obtained. Procedure Note Interface, Rad Results In - 11/21/2019 3:09 PM CDT EXAMINATION: XR CHEST AP PORTABLE CLINICAL HISTORY: Stroke; TECHNIQUE: Single frontal view of the chest was per formed. COMPARISON: Chest radiograph 03/28/2019 FINDINGS: Patient is somewhat rotated. Resolution is limited by body habitus with underpenetration. Trachea is midline and patent. There is mild nonspecific elevation of the right hemidiaphragm. Cardiomediastinal silhouette is midline and within normal limits for age. The lungs are symmetrically hypoexpanded without large consolidation, pleural effusion or pneumothorax allowing for low lung volumes. No acute osseous process seen. PA and lateral views can be obtai edy. Impression: No radiographic acute intrathoracic proc ess seen on this limited hypoventilatory view. Electronically signed by:Luis Sheikh MD Date:11/21/2019 Time:15:06 Performing Organization Address City/[facility]/ZIP Code Phon e Number MMODEL FLUENCY MMODEL FLUENCY n/a ECG 12 lead (11/21/2019 2:58 PM CDT) Specimen Narrative Performed At Test Reason : I63.9, ROGELIO GE MUSE Vent. Rate : 093 BPM ? Atrial Rate : 093 BPM ?? P-R Int : 150 ms ?QRS D ur : 090 ms ?QT Int : 398 ms ? P-R-T Axe s : 043 057 025 degrees ?? QTc Int : 494 ms Normal sinus rhythm Prolonged QT Abnormal ECG When compared with ECG of 01-AUG-2019 20 :17, Vent. rate has increased BY ??32 BPM Questionable change in The axis Nonspecific T wave abnormality no longer evident in Anterior leads QT has lengthened Confirmed by Raji FLEMING MD, Alverto Melvin ([id number]) on 11/21/2019 3:47:34 PM Referred By: System System ? Confirmed By :Alverto Alegria III, MD Performing Organization Address City/State/ZIP Code Phon e Number ROGELIO GE MUSE ROGELIO GE MUSE N/A ISTAT PROCEDURE (11/21/2019 2:58 PM CDT) Pathologist Sig nature POC PTWBT 11.6 9.7 - 14.3 sec [facility] POC PTINR 1.0 0.9 - 1.2 [facility] Sample VENOUS UNIPOC Site [place] UNIPOC Allens Test N/A [facility] DelSys Nasal Can [facility] Mode SPONT [facility] Flow 3 [facility] Specimen Blood Performing Organization Address City/State/ZIP Code Phon e Number [facility]OC N/A CTA Head and Neck (xpd) (11/21/2019 2:54 PM CDT) Specimen Impressions Performed At [facility] 1. No acute intracranial findings. ??No abnormal intra cranial enhancement. 2. Overall unremarkable CTA head and neck examination. ??No evidence of flow-limiting stenosis or large vesse l occlusion Electronically signed by: Joni Dill Date: 11/21/2019 Time: 15:10 Narrative Performed At EXAMINATION: [facility] [employer] CTA HEAD AND NECK (XPD) CLINICAL HISTORY: Neuro deficit, acute, stroke suspected; TECHNIQUE: Non contrast low dose axial images were obtained throu gh the head. ??CT angiogram was performed from the level of the car noah to the top of the head following the IV administration of 100mL o f Omnipaque 350. ?? Sagittal and coronal reconstructions and maximum in tensity projection reconstructions were performed. Arterial st enosis percentages are based on NASCET measurem ent criteria. COMPARISON: Brain MRI performed 02/04/2017 FINDINGS: Head CT: No acute intracranial hemorrhage, mass effect, or midl ine shift is appreciated. ??No evidence of acute transcortical infa rct by noncontrast CT. ??Parenchymal volume appears to be wit hin normal limits for patient age. No evidence of hydrocephalus. ??Basal cisterns are pat ent. ??No extra-axial fluid collection is seen. ??Extracranial s oft tissue structures appear to be within normal limits. ??No agg ressive osseous lesion is seen. ??Scattered relatively minor degree of paranasal sinus mucosal thickening is evident. ??Mastoid air cells and middle ear cavities appear grossly clear. ??No abnormal postcontr ast enhancement. ??Partially empty sella variant. NECK: Imaged aortic arch: Normal Right common and cervical internal carotid arteries:: No evidence of flow-limiting stenosis. Left common and cervical internal carotid arteries: No evidence of flow-limiting stenosis. Right cervical vertebral artery: There is no hemodynam ically significant stenosis or dissection Left cervical vertebral artery: There is no hemodynami nadia significant stenosis or dissection. HEAD: Right anterior circulation:Normal Right ophthalmic artery is patent. Left anterior circulation: NormalLeft op hthalmic artery is patent. Posterior circulation: There is no hemodynamically sig nificant vertebrobasilar stenosis. There is no significant GUIT[employer] stenosis. Posterior inferior cerebellar arteries p atent at origin. Anterior and posterior communicating arteries: The ant erior communicating artery appears patent. ??Posterior commu nicating arteries are not reliably visualized. NON-ANGIOGRAPHIC FINDINGS: Visualized intracranial contents: As abo ve Soft tissues of the neck: Unremarkable. Visualized sinuses: Minimal paranasal si nus mucosal thickening. Dentition: Unremarkable. Spine: Unremarkable. Visualized lungs: Motion compromises evaluation of the lung parenchyma. ??Subsegmental atelectasis may be present. ??No focal parenchymal opacity is noted. Procedure Note Interface, Rad Results In - 11/21/2019 3:12 PM CDT EXAMINATION: CTA HEAD AND NECK (XPD) CLINICAL HISTORY: Neuro deficit, acute, stroke suspected; TECHNIQUE: Non contrast low dose axial images were obtained through the head. CT angiogram was performed from the level of the ariella to the top of the head following the IV administration of 100mL of Omnipaque 350. Sagittal and coronal reconstructions and maximum intensity projection reconstructions were performed. Arterial stenosis percentages are based on NASCET measurement criteria. COMPARISON: Brain MRI performed 02/04/2017 FINDINGS: Head CT: No acute intracranial hemorrhage, mass e ffect, or midline shift is appreciated. No evidence of acute transcortical infarct by noncontrast CT. Parenchymal volume appears to be within normal limits for patient age. No evidence of hydrocephalus. Basal cis terns are patent. No extra-axial fluid collection is seen. Extracranial soft tissue structures appear to be within normal limits. No aggressive osseous lesion is seen. Scattered relatively minor degree of paranasal sin us mucosal thickening is evident. Mastoid air cells and middle ear cavities appear grossly clear. No abnormal postcontrast enhancement. Partially empty sella variant. NECK: Imaged aortic arch: Normal Right common and cervical internal carot id arteries:: No evidence of flow- limiting stenosis. Left common and cervical internal caroti d arteries: No evidence of flow-limiting stenosis. Right cervical vertebral artery: There i s no hemodynamically significant stenosis or dissection Left cervical vertebral artery: There is no hemodynamically significant stenosis or dissection. HEAD: Right anterior circulation:Normal Right ophthalmic artery is patent. Left anterior circulation: NormalLeft op hthalmic artery is patent. Posterior circulation: There is no hemod ynamically significant vertebrobasilar stenosis. There is no significant GUITAR MAKER stenosis. Posterior inferior cerebellar arteries patent at origin. Anterior and posterior communicating art eries: The anterior communicating artery appears patent. Posterior communicating arteries are not reliably visualized. NON-ANGIOGRAPHIC FINDINGS: Visualized intracranial contents: As abo ve Soft tissues of the neck: Unremarkable. Visualized sinuses: Minimal paranasal si nus mucosal thickening. Dentition: Unremarkable. Spine: Unremarkable. Visualized lungs: Motion compromises analilia luation of the lung parenchyma. Subsegmental atelectasis may be present. No focal parenchymal opacity is noted. Impression: 1. No acute intracranial findings. No a bnormal intracranial enhancement. 2. Overall unremarkable CTA head and nec k examination. No evidence of flow- limiting stenosis or large vessel occlusion Electronically signed by:Joni Dill Date:11/21/2019 Time:15:10 Performing Organization Address City/State/ZIP Code Phon e Number MMODEL FLUENCY MMODEL FLUENCY n/a CRITICAL CARE (11/21/2019 2:52 PM CDT) Narrative Performed At Tere Luke MD ? 11/22/2019 ??9:52 AM Critical Care Date/Time: 11/21/2019 3:49 PM Performed by: Tere Luke MD Authorized by: Tere Luke MD Total critical care time (exclusive of p rocedural time) : 45 minutes Critical care time was exclusive of sepa rately billable procedures and treating other patients. Critical care was necessary to treat or prevent imminent or life-threatening deterioration of the following condit ions: BALANCE CLERK failure or compromise and toxidrome. Critical care was time spent personally by me on the f ollowing activities: blood draw for specimens, discussions with consultants , interpretation of cardiac output measurements, evaluation of patient's response to treatment, examination of patient, obtai alex history from patient or surrogate, ordering and performing treatments and inte rventions, ordering and review of laboratory studies, orderi ng and review of radiographic studies, pulse oximetry, re-evaluation of patient's co ndition and review of old charts. documented in this encounter Visit Diagnoses Diagnosis Stroke - Primary Unspecified cerebral artery occlusion wi th cerebral infarction Chemical exposure Encephalopathy Unspecified encephalopathy AMS (altered mental status) A-fib Atrial fibrillation Morbid obesity Essential hypertension Prediabetes Other abnormal glucose Hypokalemia Hypopotassemia Rayna coma scale total score 3-8 documented in this encounter Administered Medications Inactive Administered Medications - up to 3 most recent administrations Medication Order MAR Action Action Date Dose Rate Site acetaminophen tablet 650 mg Given 11/22/2019 4:16 AM CDT 650 mg 650 mg, Oral, Every 6 hours PRN, mild pain 1-3/10 pain scale, Headaches, Temperature greater than 101, Starting on Thu11/21/19 at 2059 Given 11/21/2019 8:12 PM CDT 650 mg ammonia 15 % (w/v) inhaler Given 11/21/2019 3:07 PM CDT 0.3 mLs Starting on Thu11/21/19 at 1503, For 1 dose aspirin EC tablet 81 mg Given 11/22/2019 9:17 AM CDT 81 mg 81 mg, Oral, Daily, First dose on Thu11/22/19 at 0900, Admission atorvastatin tablet 40 mg Given 11/22/2019 9:16 AM CDT 40 mg 40 mg, Oral, Daily, First dose on Thu11/22/19 at 0900, Admission clopidogreL tablet 75 mg Given 11/22/2019 9:17 AM CDT 75 mg 75 mg, Oral, Daily, First dose on Thu11/22/19 at 0900, Admission enalaprilat injection 0.625 mg Given 11/21/2019 4:48 PM CDT 0.625 mg 0.625 mg, Intravenous, ED 1 Time, On Thu11/21/19 at 1645, For 1 dose enoxaparin injection 40 mg Given 11/21/2019 9:40 PM CDT 40 mg Abdo brian Tissue 40 mg, Subcutaneous, Every 24 hours, First dose on Thu11/21/19 at 1900, Admission flecainide tablet 150 mg Given 11/21/2019 9:40 PM CDT 150 mg 150 mg, Oral, Every 12 hours, First dose on Thu11/21/19 at 2100 hydroCHLOROthiazide tablet 12.5 mg Given 11/22/2019 9:17 AM CDT 12.5 mg 12.5 mg, Oral, Daily, First dose on Thu11/22/19 at 0900 iohexoL (OMNIPAQUE 350) injection 100 mL Given 11/21/2019 2:47 PM CDT 100 mLs 100 mL, Intravenous, IMG once as needed, contrast, Starting on Thu11/21/19 at 1545, For 1 dose lorazepam (ATIVAN) injection 0.5 mg Given 11/21/2019 3:15 PM CDT 0.5 mg 0.5 mg, Intravenous, ED 1 Time, On Thu11/21/19 at 1515, For 1 dose lorazepam (ATIVAN) injection 0.5 mg Given 11/21/2019 4:47 PM CDT 0.5 mg 0.5 mg, Intravenous, ED 1 Time, On Thu11/21/19 at 1645, For 1 dose metoprolol succinate (TOPROL-XL) 24 hr tablet Given 9:17 AM CDT 50 mg 50 mg 50 mg, Oral, Daily, First dose on Thu11/22/19 at 0900 naloxone (NARCAN) 1 mg/mL injection Given 11/21/2019 3:05 PM CDT 0.4 mg Starting on Thu11/21/19 at 1500, For 1 dose ondansetron injection 4 mg Given 11/22/2019 4:58 AM CDT 4 mg 4 mg, Intravenous, Every 6 hours PRN, Nausea/Vomiting (1st choice) - use as first treatment, Starting on Thu11/21/19 at 2100 Given 11/21/2019 8:12 PM CDT 4 mg spironolactone tablet 25 mg Given 11/22/2019 9:16 AM CDT 25 mg 25 mg, Oral, Daily, First dose on Thu11/22/19 at 0900 documented in this encounter Active and Recently Administered Medications Times are shown in CDT. Scheduled Medication Order 11/20/2019 11/21/2019 11/22/2019 aspirin EC tablet 81 mg 916 (Gi manjula - Provider: Ambar Arroyo RN) 81 mg, Oral, Daily, First dose on Thu11/22/19 at 0900, Admission atorvastatin tablet 40 mg 915 ( Given - Provider: Ambar Arroyo RN) 40 mg, Oral, Daily, First dose on Thu11/22/19 at 0900, Admission clopidogreL tablet 75 mg 916 (G iven - Provider: Ambar Arroyo RN) 75 mg, Oral, Daily, First dose on Thu11/22/19 at 0900, Admission enalaprilat injection 0.625 mg (COMPLETED) 164 (Given - Provider: Cari Ruiz RN) 0.625 mg, Intravenous, ED 1 Time, Thu11/21/19 at 1645, For 1 dos e enoxaparin injection 40 mg 2139 (Given - Provide r: Siomara Prado RN) 40 mg, Subcutaneous, Every 24 hours, Fir st dose on Thu11/21/19 at 1900, Admission flecainide tablet 150 mg 2139 (Given - Provider: Siomara Prado RN) 0900 (Not Given - Provider: Ambar Arroyo RN - Reason: Patient/family refused) 150 mg, Oral, Every 12 hours, First dose on Thu11/21/19 at 2100 hydroCHLOROthiazide tablet 12.5 mg 916 (Given - Provider: Ambar Arroyo RN) 12.5 mg, Oral, Daily, First dose on Thu11/22/19 at 0900 lorazepam (ATIVAN) injection 0.5 mg (COMPLETED) 1515 (Given - Provider: Cari Ruiz RN) 0.5 mg, Intravenous, ED 1 Time, Thu11/21/19 at 1515, For 1 dose lorazepam (ATIVAN) injection 0.5 mg (COMPLETED) 1647 (Given - Provider: Cari Ruiz RN) 0.5 mg, Intravenous, ED 1 Time, Thu11/21/19 at 1645, For 1 dose metoprolol succinate (TOPROL-XL) 24 hr tablet 50 mg 0917 (Given - Provider: Ambar Arroyo, DIANDRA) 50 mg, Oral, Daily, First dose on Thu11/22/19 at 0900 metoprolol tartrate (LOPRESSOR) tablet 50 mg 1645 (Not Given - Provider: Ambar Arroyo RN - Reason: Contraindicated - Comment: order ) 50 mg, Oral, ED 1 Time, Thu11/21/19 at 1645, For 1 dose spironolactone tablet 25 mg 0916 (Given - Provider: Ambar Arroyo RN) 25 mg, Oral, Daily, First dose on Thu11/22/19 at 0900 PRN Medication Order 11/20/2019 11/21/2019 11/22/2019 acetaminophen tablet 650 mg 2011 (Given - Provid er: Herminia Francis RN) 5046 (Given - Provider: Siomara Prado RN) 650 mg, Oral, Every 6 hours PRN, mild pa in 1-3/10 pain scale, Headaches, Temperature greater than 101, Starting Thu11/21/19 at 2059 iohexoL (OMNIPAQUE 350) injection 100 mL (COMPLETED) 1447 (Given - Provider: Lauren Peacock, RT) 100 mL, Intravenous, IMG once as needed, contrast, Starting Thu11/21/19 at 1545, For 1 dose labetaloL injection 10 mg 10 mg, Intravenous, Every 15 min PRN, 22 0 SBP / 100 DBP.?call provider if patient requires more than 1 dose to get to goal BP, Starting Thu11/21/19 at 1856, Admission ondansetron injection 4 mg 2011 (Given - Provide r: Herminia Francis RN) 8901 (Given - Provider: Siomara Prado RN) 4 mg, Intravenous, Every 6 hours PRN, Na usea/Vomiting (1st choice) - use as first treatment, Starting 9/14/20 at 2100 sodium chloride 0.9% flush 10 mL 10 mL, Intravenous, As needed (PRN), Libia e Care, Starting 11/21/19 at 1856, Admission No Frequency Medication Order 11/20/2019 11/21/2019 11/22/2019 ammonia 15 % (w/v) inhaler (COMPLETED) 1 507 (Given - Provider: Cari Ruiz, RN) Starting 11/21/19 at 1503, For 1 dose naloxone (NARCAN) 1 mg/mL injection (COMPLETED) 1505 (Given - Provider: Cari Ruiz, DIANDRA) Starting Thu11/21/19 at 1500, For 1 dose documented in this encounter Additional Health Concerns Infection Onset Date Last Indicated Resolved Time Rule Out COVID-19 11/21/2019 11/21/2019 11/21/2019 5: 15 PM CDT documented as of this encounter
--- OUTSIDE RECORDS SUMMARY | 2020-04-15 13:29 | XMS_ITS | Encounter Summary ---
:1975 Author Organization [facility] and It [facility] Subsidiaries and Affiliates Address [address] [place] [address] Care Team Providers Name Role Phone GENTRY Braswell Unavailable Unavailable MD Romario Primary Care Provider gina Moralez II, MD, F. Unavailable Maggy Agustin MD Unavailable Napoleon Loyola MA Unavailable Unavailable Encounter Details Date Type Department Care Team Description 10/24/2019 Lab Visit [facility] Theresa Doss MD Essential hypertension; [facility] [address] Prediabetes [address] [place] [address] [place] [id number] [phone] Social History Tobacco Use Types Packs/Day Years [...] or relatives? How often do you attend hindu or 1 to 4 times per year 10/08 hinduism services? Do you belong to any clubs or No 10/30/2018 organizations such as hindu groups, unions, fraternal or athletic groups, or [...] Progress Notes Theresa Doss MD - 10/24/2019 4:15 PM CDT1. Your diabetes is well controlled. No need to continue medication 2. Your potassium has improved but we will continue on your new medication so that it does not drop.Normal kidney and liver function 3. Normal sodium, potassium, liver and kidney function. 4. Normal blood count, no anemia, white blood cells, and platelets normal Theresa Doss MD documented in this encounter Plan of Treatment Not on filedocumented as of this encounter Goals Goal Patient Goal Associated Recent Patient-Stated? 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 HEMOGLOBIN A1C Routine 10/24/2019 3:40 Prediabetes Results f or this PM CDT procedure are i n the results section. LIPID PANEL Routine 10/24/2019 3:40 Prediabetes Results for this PM CDT procedure are i n the results section. COMPREHENSIVE Routine 10/24/2019 3:40 Prediabetes Results fo r this METABOLIC PANEL PM CDT procedure ar e in the results section. documented in this encounter Results Hemoglobin A1C (10/24/2019 3:40 PM CDT) Hemoglobin A1C 6.4 (H) 4.0 - 5.6 % [facility] Comment: [facility] Screening Guidelines: [place] 5.7-6.4% ??Consistent with prediabetes >or=6.5% ??Consistent with diabetes High levels of hemoglobin interfere with the HbA 1C assay. Heterozygous hemoglobin variants (HbS, HgC, etc )do not significantly interfere with this assay. However, presence of multiple variants may affect accu racy. Estimated Avg 137 (H) 68 - 131 [facility] Glucose mg/dL [facility] Specimen Blood - Blood Performing Organization Address City/State/ZIP Code Phon e Number [facility] [address] [place] [address] [place] Lipid Panel (10/24/2019 3:40 PM CDT) [facility] Signature Cholesterol 198 120 - 199 [facility] Comment: mg/dL [facility] The National Cholesterol Education Program (NCEP) has set the [place] following guidelines (reference ranges) for Cholestero l: Optimal.....................<200 mg/dL Borderline High.............200-239 mg/dL High........................> or = 240 mg/dL Triglycerides 135 30 - 150 [facility] Comment: mg/dL [facility] The National Cholesterol Education Program (NCEP) has set the [place] following guidelines (reference values) for triglyceri madi: Normal......................<150 mg/dL Borderline High.............150-199 mg/dL High........................200-499 mg/dL HDL 49 40 - 75 [facility] Comment: mg/dL [facility] The National Cholesterol Education Program (NCEP) has set the [place] following guidelines (reference values) for HDL Choles terol: Low...............<40 mg/dL Optimal...........>60 mg/dL LDL Cholesterol 122.0 63.0 - 159.0 [facility] Comment: mg/dL [facility] The National Cholesterol Education Program (NCEP) has set the [place] following guidelines (reference values) for LDL Choles terol: Optimal.......................<130 mg/dL Borderline High...............130-159 mg/dL High..........................160-189 mg/dL Very High.....................>190 mg/dL HDL/Cholesterol Ratio 24.7 20.0 - 50.0 [facility] % [facility] Total Cholesterol/HDL 4.0 2.0 - 5.0 [facility] Ratio [facility] Non-HDL Cholesterol 149 mg/dL [facility] Comment: [facility] Risk category and Non-HDL cholesterol goals: [facility] Coronary heart disease (CHD)or equivalent (10-year ris k of CHD >20%): Non-HDL cholesterol goal ? <130 mg/dL Two or more CHD risk factors and 10-year risk of CHD < = 20%: Non-HDL cholesterol goal ? <160 mg/dL 0 to 1 CHD risk factor: Non-HDL cholesterol goal ? <190 mg/dL Specimen Blood - Blood Performing Organization Address City/State/ZIP Code Phon e Number [facility] [address] [place] [address] [place] Comprehensive metabolic panel (10/24/2019 3:40 PM CDT) Sodium 140 136 - 145 [facility] mmol/L [facility] Potassium 4.0 3.5 - 5.1 [facility] mmol/L [facility] Chloride 105 95 - 110 [facility] mmol/L [facility] CO2 27 23 - 29 [facility] mmol/L [facility] Glucose 110 70 - 110 [facility] mg/dL [facility] BUN 12 6 - 20 mg/dL [facility] Creatinine 0.8 0.5 - 1.4 [facility] mg/dL [facility] Calcium 9.2 8.7 - 10.5 [facility] mg/dL [facility] Total Protein 7.7 6.0 - 8.4 [facility] g/dL [facility] Albumin 3.9 3.5 - 5.2 [facility] g/dL [facility] Total Bilirubin 0.4 0.1 - 1.0 [facility] Comment: mg/dL [facility] For infants and newborns, interpretation of results sh ould be based [place] on gestational age, weight and in agreement with clini stefania observations. Premature Infant recommended reference ranges: Up to 24 hours.............<8.0 mg/dL Up to 48 hours............<12.0 mg/dL 3-5 days..................<15.0 mg/dL 6-29 days.................<15.0 mg/dL Alkaline 72 55 - 135 U/L [facility] Phosphatase [facility] AST 19 10 - 40 U/L [facility] ALT 18 10 - 44 U/L [facility] Anion Gap 8 8 - 16 [facility] mmol/L [facility] eGFR if >60.0 >60 [facility] [place] mL/min/1.[address] eGFR if non >60.0 >60 [facility] Comment: mL/min/1.73 [facility] Calculation used to obtain the estimated glomerular fi ltration [address] rate (eGFR) is the CKD-EPI equation. Specimen Blood - Blood Performing Organization Address City/State/ZIP Code Phon e Number [facility] [address] [place], [place] [id number] [place] [address] CBC auto differential (10/24/2019 3:40 PM CDT) WBC 7.87 3.90 - 12.70 [facility] K/uL [facility] RBC 4.50 4.00 - 5.40 [facility] M/uL [facility] Hemoglobin 12.2 12.0 - 16.0 [facility] g/dL [facility] Hematocrit 40.3 37.0 - 48.5 [facility] MCV 90 82 - 98 fL [facility] MCH 27.1 27.0 - 31.0 [facility] MCHC 30.3 (L) 32.0 - 36.0 [facility] g/dL [facility] RDW 13.6 11.5 - 14.5 [facility] Platelets 301 150 - 350 [facility] MPV 11.0 9.2 - 12.9 [facility] Immature 0.4 0.0 - 0.5 % [facility] Granulocytes [facility] Gran # (ANC) 3.9 1.8 - 7.7 [facility] Immature Grans (Abs) 0.03 0.00 - 0.04 [facility] Comment: /[facility] Mild elevation in immature granulocytes is non specifi c and [place] can be seen in a variety of conditions including stres s response, acute inflammation, trauma and . Correlation with other laboratory and clinical findings is essential. Lymph # 3.1 1.0 - 4.8 [facility] [place] # 0.7 0.3 - 1.0 [facility] Eos # 0.2 0.0 - 0.5 [facility] Baso # 0.04 0.00 - 0.20 [facility] nRBC 0 0 /100 WBC [facility] Gran % 49.3 38.0 - 73.0 [facility] Lymph % 38.9 18.0 - 48.0 [facility] Hubbard % 8.9 4.0 - 15.0 % [facility] Eosinophil % 2.0 0.0 - 8.0 % [facility] Basophil % 0.5 0.0 - 1.9 % [facility] Differential Method Automated [facility] Specimen Blood - Blood Performing Organization Address City/State/ZIP Code Phon e Number [facility] [address] [place], [place] [id number] [place] [address] documented in this encounter Visit Diagnoses Diagnosis Essential hypertension Prediabetes Other abnormal glucose documented in this encounter
--- OUTSIDE RECORDS SUMMARY | 2020-04-15 13:29 | XMS_ITS | Encounter Summary ---
:1975 Author Organization [facility] and It s Subsidiaries and Affiliates Address [address] [place] [address] Care Team Providers Name Role Phone GENTRY Braswell Unavailable Unavailable MD Romario Primary Care Provider gina Moralez II, MD, F. Unavailable Maggy Agustin MD Unavailable Napoleon Loyola MA Unavailable Unavailable Reason for Visit Reason Comments Pain Encounter Details Date Type Department Care Team Description 12/15/2019 Office Visit Brit Mcconnell B - Jose J, W Joni, Other tear of lateral meniscus of right knee as current injury, initial encounter (Primary Dx); [facility] Chondromalacia of right knee; [address] Acute p ain of right knee; [facility] Pre-op testing [address] FLO[address] BUILDING [id number] [place] [address] [place] Scout: Karlene [id number] Arroyo [phone] Social History Tobacco Use Types Packs/Day Years [...] 1 to 4 times per year 10/08 restoration services? Do you belong to any clubs or No 10/30/2018 organizations such as yazidi groups, unions, [employer]Access Mobile or athletic groups, or school groups? How [...] Sign Reading Time Taken Comments Blood Pressure 173/90 12/15/2019 8:35 AM CDT Pulse 75 12/15/2019 8:35 AM CDT Temperature - - Respiratory Rate - - Oxygen Saturation - - Inhaled Oxygen Concentration - - Weight 123.8 kg (273 lb) 12/15/2019 8:35 AM CDT Height 167.6 cm (5' 6) 12/15/2019 8:35 AM CDT Body Mass Index 44.06 12/15/2019 8:35 AM CDT documented in this encounter Progress Notes Rui Lux MD - 12/15/2019 8:30 AM CDT CC: Right knee pain 44 y.o. Female who presents as a new patient to me. 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 Complaint is right knee pain for 2-3 months with an atraumatic onset. Pain began when she was standing from a seated position on the ground and had immediate pain in her lateral compartment of her right knee. She has had intermittent mechanical symptoms since then but states that 3 days ago she had her first significant locking episode and was unable to move the knee out of flexion for approximately an hour. This was associated with significant pain and swelling. Knee invention unlocked and she has hadno similar episodes since but does have intermittent catching complaints. Pain localizes to the lateral joint line. Denies instability otherwise. Worse with deep knee bending. Better with rest. Treatment thus far has included rest, activity modifications, oral medications. Here today to discuss diagnosis and treatment options. PMHx notable for stroke, hypertension, morbid obesity and prediabetes. Previous hysterectomy with post operative infection on 12/31/18. Negative for tobacco. Negative for diabetes. Last A1C 6.4 on 10/24/2019 BMI of 44 Pain Score: 6 REVIEW OF SYSTEMS: Constitution: Negative. Negative for chills, fever and night sweats. Hematologic/Lymphatic: Negative for bleeding problem. Does not bruise/bleed easily. Skin: Negative for dry skin, itching and rash. Musculoskeletal: Negative for falls. Positive for right knee pain and muscle weakness. All other review of symptoms were reviewed and found to be noncontributory. PAST MEDICAL HISTORY: Past Medical History: Diagnosis [...] week Gets together: Twice a week Attends restoration service: 1 to 4 times per year [...] of patient's allergies indicates: No Known Allergies PHYSICAL EXAMINATION: BP (!) 173/90 Pulse 75 Ht 5' 6 (1.676 m) Wt 123.8 kg (273 lb) LMP 01/03/2019 BMI 44.06 kg/m?? General: Well-developed well-nourished 44 y.o. femalein no acute distress Cardiovascular: Regular rhythm by palpation of distal pulse, normal color and temperature, no concerning varicosities on symptomatic side Lungs: No labored breathing or wheezing appreciated Neuro: Alert and oriented ??3 Psychiatric: well oriented to person, place and time, demonstrates normal mood and affect Skin: No rashes, lesions or ulcers, normal temperature, turgor, and texture on involved extremity Ortho/SPM Exam Examination of the right knee demonstrates intact extensor mechanism. No effusion or prepatellar swelling. Central patellar tracking. Normal patellar mobility. Full extension. Flexion to 110 with significant pain and guarding. Pain with forced flexion. Prominent tenderness along the lateral joint lineonly. Positive Saadia's for pain over the lateral joint line. Negative Juan. Stable to varus/valgus stress testing at 0 and 30 deg. Negative posterior drawer. Ligamentously stable. IMAGING: X-rays including standing, weight bearing AP and flexion bilateral knees, RIGHT knee lateral and sunrise views ordered and images reviewed by me show: Well-maintained joint spaces. Minimal lateral patellar tilt bilaterally MRI reviewed by me and discussed with patient. Study shows: ?? Horizontal longitudinal tear lateral meniscus ?? Tricompartmental grades 1-2 chondromalacia ?? ASSESSMENT: ICD-10-CM ICD-9-CM 1. Other tear of lateral meniscus of right knee as current injury, initial encounter S83.281A 836.1 2. Chondromalacia of right knee M94.261 717.7 3. Acute pain of right knee M25.561 719.46 4. Pre-op testing Z01.818 V72.84 PLAN: Findings discussed with the patient. She does have a lateral meniscus tear in the setting of underlying chondromalacia and morbid obesity. She presents with prominent mechanical complaints and at least 1 episode of significant locking. All symptoms are laterally based which correlate with imaging.Treatment options reviewed, both operative and non operative. Given the predominance of her mechanical complaints, I do think that arthroscopic debridement would be of benefit. The details of this were discussed. I have explained that she does have some underlying chondromalacia again in the setting of morbid obesity which can cause some continued or recurrent pain. A consideration for proceedingwith surgery at this time is really the mechanical complaints. We also discussed injection with initial formal therapy as well. The patient would like to proceed with the arthroscopic debridement. Plan for right knee arthroscopic partial lateral meniscectomy versus repair as indicated, chondroplasty. She will need preoperative cardiac clearance. The expected postop rehab and recovery course was reviewed. The patient understands the higher riskfor continued or recurrent pain postop, stiffness, tissue retearing in the setting of her chondromalacia. Informed Consent: The details of the surgical procedure were explained, including the location of probable incisions and a description of possible hardware and/or grafts to be used. Alternatives to both operative and non-operative options with associated risks and benefits were discussed. The patient understands the likely convalescence after surgery and, in particular, the expected postop rehab and recovery course. The outlined risks and potential complications of the proposed procedure include but are not limited to: infection, poor wound healing, scarring, deformity, stiffness, swelling, continued or recurrent pain, instability, hardware or prosthetic failure if implanted, symptomatic hardware requiring removal,dislocation, weakness, neurovascular injury, numbness, chronic regional pain disorder, tissue nonhealing/irreparability/retear, subsequent contralateral limb injury or pathology, chondral injury, arthritis, fracture, blood clot formation, inability to return to previous level of activity, anesthetic or regional block complication up to , need for additional procedure as indicated intraoperatively, and potential need for further surgery. The patient was also informed and understands that the risks of surgery are greater for patients with a current condition or history of heart disease, obesity, clotting disorders, recurrent infections,steroid use, current or past smoking, and factors such as sedentary lifestyle and noncompliance with medications, therapy or follow-up. The degree of the increased risk is hard to estimate with any degree of precision. If applicable, smoking cessation was discussed. All questions were answered. The patient has verbalized understanding of these issues and wishes to proceed with the surgery as discussed. Procedures documented in this encounter Plan of Treatment Not on filedocumented as of this encounter Goals Goal Patient Goal Associated Recent Patient-Stated? 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 documented as of this encounter Results COVID-19 Routine Screening (01/03/2020 12:50 PM CDT) SARS-CoV2 Not Detected Not Detected [facility] (COVID-19) Comment: [facility] Qualitative PCR This test utilizes a real-time [facility] polymerase chain reaction procedure to amplify and [...] Authorization (EUA). Commercial reagents are provided by [employer]. Performance characteristics of the EUA have been independently verified by [facility] Department of Pathology and Laboratory Medicine. ?? Specimen Nasopharyngeal - Nasopharyngeal Narrative Performed At Is the patient symptomatic?->No [facility] Is this needed for pre-procedure or pre-op testing?->Yes Diagnosis:->Pre-op testing Performing Organization Address [facility]/ZIP Code Phon e Number [facility] [address] [place], [place] [id number] [place] [address] X-ray Knee Ortho Right with Flexion (12/15/2019 9:30 AM CDT) Specimen Narrative Performed At EXAMINATION: MMODEL FLUENCY XR KNEE ORTHO RIGHT WITH FLEXION CLINICAL HISTORY: Pain in right knee FINDINGS: Four views: Right: No fracture dislocation bone dest ruction or OCD seen. Left: No fracture dislocation bone destr uction or OCD seen. Electronically signed by: Melvin May MD Date: 12/15/2019 Time: 09:33 Procedure Note Interface, Rad Results In - 12/15/2019 9:36 AM CDT EXAMINATION: XR KNEE ORTHO RIGHT WITH FLEXION CLINICAL HISTORY: Pain in right knee FINDINGS: Four views: Right: No fracture dislocation bone dest ruction or OCD seen. Left: No fracture dislocation bone destr uction or OCD seen. Electronically signed by:Melvin May MD Date:12/15/2019 Time:09:33 Performing Organization Address City/[facility]/ZIP Code Phon e Number MMODEL FLUENCY MMODEL FLUENCY n/a documented in this encounter Visit Diagnoses Diagnosis Other tear of lateral meniscus of right knee as current injury, initial encounter - Primary Chondromalacia of right knee Acute pain of right knee Pre-op testing Unspecified pre-operative examination documented in this encounter
--- OUTSIDE RECORDS SUMMARY | 2020-04-15 13:29 | XMS_ITS | Encounter Summary ---
:1975 Author Organization [facility] and It s Subsidiaries and Affiliates Address [address] [place] [address] Care Team Providers Name Role Phone GENTRY Braswell Unavailable Unavailable MD Romario Primary Care Provider gina Moralez II, MD, F. Unavailable Maggy Agustin MD Unavailable Napoleon Loyola MA Unavailable Unavailable Encounter Details Date Type Department Care Team Description 11/15/2019 Telephone Marc Oliveros - Orthopedics 5th Lilo Wu Fl MD [address] [facility] [address] [facility] [place] [address] [place], [place] [phone] Accounting Recruiter: Urszula Burris Social History Tobacco Use Types Packs/Day Years [...] or relatives? How often do you attend caodaism or 1 to 4 times per year 10/08 sabianism services? Do you belong to any clubs or No 10/30/2018 organizations such as caodaism groups, unions, fraternal or athletic groups, or [...] this encounter Miscellaneous Notes Telephone Encounter - Gianna Meraz MA - 11/15/2019 10:09 AM CDTLeft a voice mail for pt to return my call regarding an appointment scheduled with Dr Wu for tomorrow morning for a torn meniscus. Also sent a message to pt via [employer] signed by Gianna Meraz MA at 11/15/2019 10:09 AM CDTdocumented in this encounter Plan of Treatment Not on filedocumented as of this encounter Goals Goal Patient Goal Associated Recent Patient-Stated? 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
--- OUTSIDE RECORDS SUMMARY | 2020-04-15 13:29 | XMS_ITS | Encounter Summary ---
:1975 Author Organization [facility] and It [employer] Subsidiaries and Affiliates Address [address] [place] [address] Care Team Providers Name Role Phone GENTRY Braswell Unavailable Unavailable MD Romario Primary Care Provider gina Moralez II, MD, F. Unavailable Maggy Agustin MD Unavailable Napoleon Loyola MA Unavailable Unavailable Encounter Details Date Type Department Care Team Description 12/27/2019 Orders Only Brit Mcconnell B - Ron Goldstein, Old tear of lateral Sports Med rust [facility] PA-C meniscus of right [address] [facility] knee, unspecified [place], [place] tear type (Primary [id number] Dx) [phone] Change Consultant: Karlene Geo Arroyo Social History Tobacco Use [...] or relatives? How often do you attend synagogue or 1 to 4 times per year 10/08 episcopal services? 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 Exercise No Precious Wislon Note: Your goal is to increase exercise routin e and start Spin Classes next week. documented as of this encounter Visit Diagnoses Diagnosis Old tear of lateral meniscus of right kn ee, unspecified tear type - Primary documented in this encounter
--- OUTSIDE RECORDS SUMMARY | 2020-04-15 13:29 | XMS_ITS | Encounter Summary ---
:1975 Author Organization [facility] and It s Subsidiaries and Affiliates Address [address] [place] [address] Care Team Providers Name Role Phone GENTRY Braswell Unavailable Unavailable MD Romario Primary Care Provider gina Moralez II, MD, F. Unavailable Maggy Agustin MD Unavailable Napoleon Loyola MA Unavailable Unavailable Reason for Referral MRI/CAT Scan (Routine) Status Reason Specialty Diagnoses / Procedures Referred By Sumaya freeman Referred To Contact Closed Radiology Diagnoses Tear of meniscus of right knee as current injury, unspecified meniscus, unspecified tear type, initial encounter Theresa Doss MD Procedures MRI Knee Without Contrast Right [address] [place] [address] Phone: Electronically signed by Theresa Doss MD at Reason for Visit Auth/Cert Status Reason Specialty Diagnoses / Procedures Referred By Sumaya freeman Referred To Contact Radiology Procedures [facility] Mri Mri Knee Without [address] [[id number]] [place] [phone] Phone: Fax: Encounter Details Date Type Department Care Team Description 11/07/2019 Hospital Encounter Sima - Theresa Gilliam, Tear o f meniscus of [facility] 1st MD right knee as Fl [address] current injury, [address] [place] meniscus, [place] [address] unspecified tear [id number] type, initial [phone] encounter (Fax) Social History Tobacco Use Types [...] encounter Progress Notes Theresa Doss MD - 11/07/2019 4:00 PM CDTYour MRI does show a tear in your lateral meniscus, do you have an orthopedic or do you need me to refer you to one Theresa Doss MD documented in this encounter Plan of Treatment Not on filedocumented as of this encounter Goals Goal Patient Goal Associated Recent Patient-Stated? 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 Exercise No Cutjil Percious Note: Your goal is to increase exercise routin e and start Spin Classes next week. documented as of this encounter Procedures Procedure Name Priority Date/Time Associated Diagnosis Comme nts MRI KNEE WITHOUT Routine 11/07/2019 5:10 PM Tear of meniscus of Results for this CONTRAST RIGHT CDT right knee as procedure ar e in current injury, the results unspecified section. 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 COMPARISON: X-ray 10/24/2019 FINDINGS: Menisci:There is a horizontal longitudinal tear of the body and posterior horn of the lateral meniscus. ??The medial m eniscus is intact. Ligaments:The ACL, PCL, MCL, and lateral collateral li gament complexes are intact. Extensor Mechanism:Quadriceps and patell ar tendons are intact. Bone and Joint including articular cartilage:Bone zan ow signal is normal. 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 ??No focal full-thickn ess defects are seen. Soft Tissues:There is a small suprapatellar effusion a nd there is a small Servin's cyst. Miscellaneous:None Procedure Note Interface, Rad Results In - 11/08/2019 9:18 AM CDT EXAMINATION: MRI KNEE WITHOUT CONTRAST RIGHT CLINICAL HISTORY: meniscal tear;Unspecified tear of unspec ified meniscus, current injury, right knee, initial encounter TECHNIQUE: Multiplanar, multisequence images were p erformed of the right knee. COMPARISON: X-ray 10/24/2019 FINDINGS: Menisci:There is a horizontal longitudin al tear of the body and posterior horn of the lateral meniscus. The medial meniscus is intact. Ligaments:The ACL, PCL, MCL, and lateral collateral ligament complexes are intact. Extensor Mechanism:Quadriceps and patell ar tendons are intact. Bone and Joint including articular carti evan:Bone marrow signal is normal. 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 No focal full-thick ness defects are seen. Soft Tissues:There is a small suprapatel lar effusion and there is a small Servin's cyst. 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
--- OUTSIDE RECORDS SUMMARY | 2020-04-15 13:29 | XMS_ITS | Encounter Summary ---
:1975 Author Organization [facility] and It s Subsidiaries and Affiliates Address [address] [place] [address] Care Team Providers Name Role Phone GENTRY Braswell Unavailable Unavailable MD Romario Primary Care Provider gina Moralez II, MD, F. Unavailable Maggy Agustin MD Unavailable Napoleon Loyola MA Unavailable Unavailable Reason for Visit Reason Comments Appointment hospital follow up Encounter Details Date Type Department Care Team Description 11/22/2019 Telephone [place] - Family Theresa Doss MD Appointment (hospital Medicine [address] follow up ) [address] [place] [address] [place] [phone] [employer] Attendant: Nirmal Zheng Social History Tobacco Use Types [...] or relatives? How often do you attend spiritism or 1 to 4 times per year 10/08 gnosticism services? Do you belong to any clubs or No 10/30/2018 organizations such as spiritism groups, unions, fraternal or athletic groups, or [...] this encounter Miscellaneous Notes Telephone Encounter - Peng GENTRY Prince - 11/22/2019 2:50 PM CDTNotified patient that a appointment was scheduled for hospital follow up. Patient states that she was not aware an appointment was made. Confirmed patient appointment for 11/24/2019 at 10:20am with Dr. Doss. Patient verbalized understanding. elephone Encounter - Suresh Khoury MA - 11/22/2019 2:50 PM CDT----- Message from Theresa Doss MD sent at 11/22/2019 2:31 PM CDT ----- Regarding: RE: Hospital Discharge As long as it is not in an urgent slot if not she can see my PSYCHIATRY PHYSICIAN Theresa Doss MD ----- Message ----- From: Suresh Khoury MA Sent: 11/22/2019 2:19 PM CDT To: Theresa Doss MD Subject: FW: Hospital Discharge Would you like for an override? ----- Message ----- From: Sade Shah Sent: 11/22/2019 2:07 PM CDT To: Romario Cardenas Staff Subject: Hospital Discharge The patient is preparing for a hospital discharge and needs a hospital f/u visit. The soonest available was 12/26/2019. If possible, can this patient get a sooner appointment? Any assistance is greatlyappreciated. Thanks, Sade documented in this encounter Plan of Treatment Not on filedocumented as of this encounter Goals Goal Patient Goal Associated Recent Patient-Stated? 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
--- OUTSIDE RECORDS SUMMARY | 2020-04-15 13:29 | XMS_ITS | Encounter Summary ---
:1975 Author Organization [facility] and It s Subsidiaries and Affiliates Address [address] [place] [address] Care Team Providers Name Role Phone GENTRY Braswell Unavailable Unavailable MD Romario Primary Care Provider gina Moralez II, MD, F. Unavailable Maggy Agustin MD Unavailable Napoleon Loyola MA Unavailable Unavailable Encounter Details Date Type Department Care Team Description 11/18/2019 Telephone [facility] - [facility] Med 1st Darcie Diaz MA Fl [address] [place], [place] [phone] Icu Registered Nurse: Karlene Arroyo Social History Tobacco Use Types [...] 1 to 4 times per year 10/08 yazidism services? Do you belong to any clubs [...] Telephone Encounter - Ernie Diaz MA - 11/18/2019 3:15 PM CDTLeft VM for patient to return call to rescheduled cancelled appointment with Dr. Lux. documented in this encounter Plan of Treatment Not on filedocumented as of this encounter Goals Goal Patient Goal Associated Recent Patient-Stated? 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
--- OUTSIDE RECORDS SUMMARY | 2020-04-15 13:29 | XMS_ITS | Encounter Summary ---
:1975 Author Organization [facility] and It s Subsidiaries and Affiliates Address [address] [place] [address] Care Team Providers Name Role Phone GENTRY Braswell Unavailable Unavailable MD Romario Primary Care Provider gina Moralez II, MD, F. Unavailable Maggy Agustin MD Unavailable Napoleon Loyola MA Unavailable Unavailable Encounter Details Date Type Department Care Team Description 12/23/2019 Telephone [facility] B - Sports Med 1st Darcie Diaz MA Fl [address] [place], [place] [phone] Geneticist: Karlene Arroyo Social History Tobacco Use Types [...] or relatives? How often do you attend christian or 1 to 4 times per year 10/08 church services? Do you belong to any clubs or No 10/30/2018 organizations such as christian groups, unions, fraternal or athletic groups, or [...] Telephone Encounter - Ernie Diaz MA - 12/23/2019 11:20 AM CDTAttempted calling patient, no VM available documented in this encounter Plan of Treatment Not on filedocumented as of this encounter Goals Goal Patient Goal Associated Recent Patient-Stated? 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 Reduce portion size Diet No Precious Hernandez DIET - Meal Planning Diet No Luzu raPrecious Note: Your goal is to incorporate [...]
--- OUTSIDE RECORDS SUMMARY | 2020-04-15 13:29 | XMS_ITS | Encounter Summary ---
:1975 Author Organization [facility] and It s Subsidiaries and Affiliates Address [address] [place] [address] Care Team Providers Name Role Phone GENTRY Braswell Unavailable Unavailable MD Romario Primary Care Provider gina Moralez II, MD, F. Unavailable Maggy Agustin MD Unavailable Napoleon Loyola MA Unavailable Unavailable Encounter Details Date Type Department Care Team Description 11/16/2019 Telephone Marc Oliveros - Orthopedics 5th Lilo Wu Fl MD [address] [facility] [address] [facility] [place] [address] [place], [place] [phone] [employer] Specialist: Urszula Burris Social History Tobacco Use Types [...] or relatives? How often do you attend advent or 1 to 4 times per year 10/08 bahai services? Do you belong to any clubs or No 10/30/2018 organizations such as advent groups, unions, fraternal or athletic groups, or [...] Telephone Encounter - Gianna Meraz MA - 11/16/2019 8:04 AM CDTLeft a voice mail for pt to return my call. Pt did not complete the check in process through the mobile gaye at 740 am. Called pt from the Orthopedics lobby at 8 am. No answer. test deskman completed the check in process and I called pt's cell phone. Voice mail left for pt documented in this encounter Plan of Treatment Not on filedocumented as of this encounter Goals Goal Patient Goal Associated Recent Patient-Stated? 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
--- OUTSIDE RECORDS SUMMARY | 2020-04-15 13:29 | XMS_ITS | Encounter Summary ---
:1975 Author Organization [facility] and It s Subsidiaries and Affiliates Address [address] [place] [address] Care Team Providers Name Role Phone GENTRY Braswell Unavailable Unavailable MD Romario Primary Care Provider gina Moralez II, MD, F. Unavailable Maggy Agustin MD Unavailable Napoleon Loyola MA Unavailable Unavailable Encounter Details Date Type Department Care Team Description 11/10/2019 Orders Only [facility] Stephanie Alonso Fever, u nspecified fever cause (Primary Dx); Center A., RN Myalgia; [address] Sore throat [place] [address] [facility] [place] [address] Social History Tobacco Use Types Packs/Day Years [...] or relatives? How often do you attend muslim or 1 to 4 times per year 10/08 congregation services? 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 Exercise No Cutjil Precious Note: Your goal is to increase exercise routin e and start Spin Classes next week. documented as of this encounter Results POCT COVID-19 Rapid Screening (11/10/2019 10:06 AM CDT) Pathologist Sig nature POC Rapid COVID Negative Negative [facility] Supervisor Assembly Room Acceptable Yes [facility] RE Specimen Nasal Swab - Nasal Swab Narrative Performed At This test utilizes isothermal nucleic ac id amplification [facility] technology to detect the [...] tion (EUA). Commercial kits are provided by [employer]. Performance characteristics of the EUA h ave been independently verified by [facility] Depar tment of Pathology and Laboratory Medicine. The authorized Fact Sheet for Healthcare Providers and the authorized Fact Sheet for Patients of the ID NOW COVID-1 9 are available on the FDA website: https://www.fda.gov/media/784649/downloa d https://www.fda.gov/media/504599/downloa d Performing Organization Address City/State/ZIP Code Phon e Number [facility] [address] [place] [id number] documented in this encounter Visit Diagnoses Diagnosis Fever, unspecified fever cause - Primary Myalgia Unspecified myalgia and myositis Sore throat Acute pharyngitis documented in this encounter
--- OUTSIDE RECORDS SUMMARY | 2020-04-15 13:29 | XMS_ITS | Encounter Summary ---
:1975 Author Organization [facility] and It s Subsidiaries and Affiliates Address [address] [place] [address] Care Team Providers Name Role Phone GENTRY Braswell Unavailable Unavailable MD Romario Primary Care Provider gina Moralez II, MD, F. Unavailable Maggy Agustin MD Unavailable Napoleon Loyola MA Unavailable Unavailable Encounter Details Date Type Department Care Team Description 12/15/2019 Hospital Encounter [facility] - [facility], Acute pain of right Sports Med 1st [place] knee [address] [place], [place] [address] [address]LO[address] [place] [id number] [address] [place] [address] [phone] Social History Tobacco Use Types Packs/Day Years [...] or relatives? How often do you attend mormon or 1 to 4 times per year 10/08 latter-day services? Do you belong to any clubs or No 10/30/2018 organizations such as mormon groups, unions, fraternal or athletic groups, or [...] Take 1 tablet (12.5 30 tablet 0 08/10/ 020 08/10/2020 (HYDRODIURIL) 12.5 MG mg total) [...] as needed. documented as of this encounter Plan of Treatment Not on filedocumented as of this encounter Goals Goal Patient Goal Associated Recent Patient-Stated? Author Type Problems Progress Blood Pressure Blood 197/101 Yes Myochsner, < 130/80 Pressure (02/21/2020 System Messag e 10:15 AM KAIAWHINA) Take at least Blood No Cutura, one BP reading Pressure Precious per week at various times of the day Maintain a low Diet No Cutura, sodium diet Precious Note: [place] Heart Association (AHA) guideli francisco recommend less than 2000mg of dietary salt per day. Reduce portion size Diet No Belinda a, Precious DIET - Meal Planning Diet [...] Date/Time Associated Diagnosis Comme nts XR KNEE ORTHO RIGHT Routine 12/15/2019 9:30 AM Acute pain of right Results for this WITH FLEXION CDT knee procedure are i n the results section. documented in this encounter Results X-ray Knee Ortho Right with Flexion (12/15/2019 [...] May MD Date:12/15/2019 Time:09:33 Performing Organization Address City/State/ZIP Code Phon e Number MMODEL FLUENCY MMODEL FLUENCY n/a documented in this encounter Visit Diagnoses Diagnosis Acute pain of right knee documented in this encounter
--- OUTSIDE RECORDS SUMMARY | 2020-04-15 13:29 | XMS_ITS | Encounter Summary ---
:1975 Author Organization [facility] and It s Subsidiaries and Affiliates Address [address] [place] [address] Care Team Providers Name Role Phone GENTRY Braswell Unavailable Unavailable MD Romario Primary Care Provider gina Moralez II, MD, F. Unavailable Maggy Agustin MD Unavailable Napoleon Loyola MA Unavailable Unavailable Encounter Details Date Type Department Care Team Description 10/24/2019 Procedure Pass [facility] - OP Diagnost ic Ctr 1st Fl [address] [facility] [place] [phone] Social History Tobacco Use Types Packs/Day Years [...] or relatives? How often do you attend adventism or 1 to 4 times per year 10/08 zoroastrianism services? 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
--- OUTSIDE RECORDS SUMMARY | 2020-04-15 13:29 | XMS_ITS | Encounter Summary ---
:1975 Author Organization [facility] and It s Subsidiaries and Affiliates Address [address] [place] [address] Care Team Providers Name Role Phone GENTRY Braswell Unavailable Unavailable MD Romario Primary Care Provider gina Moralez II, MD, F. Unavailable Maggy Agustin MD Unavailable Napoleon Loyola MA Unavailable Unavailable Encounter Details Date Type Department Care Team Description 12/28/2019 Pharmacy Visit [facility] [address] [place], [place] [phone] Social History Tobacco Use [...] or relatives? How often do you attend restoration or 1 to 4 times per year 10/08 denominational services? 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
--- OUTSIDE RECORDS SUMMARY | 2020-04-15 13:29 | XMS_ITS | Encounter Summary ---
:1975 Author Organization [facility] [employer] [facility] and It s Subsidiaries and Affiliates Address [address] [place] [address] Care Team Providers Name Role Phone GENTRY Braswell Unavailable Unavailable MD Romario Primary Care Provider gina Moralez II, MD, F. Unavailable Maggy Agustin MD Unavailable Napoleon Loyola MA Unavailable Unavailable Reason for Referral Physical Medicine (Routine) Status Reason Specialty Diagnoses / Referred By Referred To Procedures Contact Contact Pending Specialty Physical Diagnoses Old tear of lateral meniscus of right knee, unspecified tear type Joe Goldstein [facility] Therapy / Ron Lance, Outpatient Required Outpatient PA-C Services - 1st Rehab [address] [facility] [address], [place] [address] [place], Phone: [place] [phone] Phone: Scheduling Instructions To start PT POD 1-3 s/p right knee arthroscopy with lateral meniscectomy versus possible repair 01/06/2020 Electronically signed by Ron Goldstein PA-C at Encounter Details Date Type Department Care Team Description 12/27/2019 Office Visit [facility] - Ron Goldstein r of lateral Sports Med 1st Rosalee Lance, PA-C meniscus of right [address] knee, unspecified [place], [place] [facility], [place] tear type (Primary [phone] Dx) [phone] Church Organist: Karlene Farnazjanie Noeeric Social History Tobacco Use Types Packs/Day Years [...] 1 to 4 times per year 10/08 voodoo services? Do you belong to any clubs [...] Sign Reading Time Taken Comments Blood Pressure 170/100 12/27/2019 2:57 PM CDT Pulse - - Temperature - - Respiratory Rate - - Oxygen Saturation - - Inhaled Oxygen Concentration - - Weight 123.8 kg (273 lb) 12/27/2019 2:57 PM CDT Height 167.6 cm (5' 6) 12/27/2019 2:57 PM CDT Body Mass Index 44.06 12/27/2019 2:57 PM CDT documented in this encounter H&P Notes Ron Goldstein PA-C - 12/27/2019 3:00 PM CDT Remeidos Schofield is here for a completion of [...] week Gets together: Twice a week Attends voodoo service: 1 to 4 times per year [...] POD#1-3. She is doing physical therapy at [facility]. POST OP CARE: Instructions were reviewed including care of the wound and dressing after surgery and when she can shower. PAIN MANAGEMENT: Remediosnorman Burtonman was instructed regarding the Polar ice unit [...] under the influence of narcotic medications. Dr. Lux was present in clinic during this pre-op evaluation. The patient was offered the opportunity to ask Dr. Lux any further questions regarding the procedure which may not have been addressedduring their previous informed consent discussion. The patient has declined to see Dr. Lux today. As there were no other questions to be asked, she was given my business card along with Dr. Lux'sbusiness card if she has any questions or [...] of the current policies and procedures of [facility] and the government regarding the [...] of ebonie coronavirus. documented in this encounter Plan of Treatment Scheduled Referrals Name Type Priority Associated Diagnoses Order S [facility] Ambulatory Outpatient Referral Routine Old tear of lateral E xpected: referral/consult to meniscus of right , Physical/Occupationa knee, unspecified Ex hailey: l Therapy tear type 01/26/2021 documented as of this encounter Goals Goal Patient Goal Associated Recent Patient-Stated? 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 Reduce portions Diet No Cutjil, C hristina Meal plan Diet No Marco [...]
--- OUTSIDE RECORDS SUMMARY | 2020-04-15 13:29 | XMS_ITS | Encounter Summary ---
:1975 Author Organization [facility] and It s Subsidiaries and Affiliates Address [address] [place] [address] Care Team Providers Name Role Phone GENTRY Braswell Unavailable Unavailable MD Romario Primary Care Provider gina Moralez II, MD, F. Unavailable Maggy Agustin MD Unavailable Napoleon Loyola MA Unavailable Unavailable Encounter Details Date Type Department Care Team Description 12/23/2019 Telephone [facility] B - Sports Med 1st Darcie Diaz MA Fl [address] [place], [place] [phone] Rn Dialysis: Karlene Arroyo Social History Tobacco Use Types [...] or relatives? How often do you attend uatsdin or 1 to 4 times per year 10/08 amish services? Do you belong to any clubs or No 10/30/2018 organizations such as uatsdin groups, unions, fraternal or athletic groups, or [...] Encounter - Ernie Diaz MA - 12/23/2019 12:23 PM CDTSpoke with patient to schedule surgery for 01/06/20. Scheduled pre-op appointment with Edgar for 12/27/19 and covid test on 01/03/20. documented in this encounter Plan of Treatment Not on filedocumented as of this encounter Goals Goal Patient Goal Associated Recent Patient-Stated? 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 Reduce portion size Diet No Cutur aPrecious DIET - Meal Planning Diet No [...]
--- OUTSIDE RECORDS SUMMARY | 2020-04-15 13:29 | XMS_ITS | Encounter Summary ---
:1975 Author Organization [facility] and It s Subsidiaries and Affiliates Address [address] [place] [address] Care Team Providers Name Role Phone GENTRY Braswell Unavailable Unavailable MD Romario Primary Care Provider gina Moralez II, MD, F. Unavailable Maggy Agustin MD Unavailable Napoleon Loyola MA Unavailable Unavailable Encounter Details Date Type Department Care Team Description 11/10/2019 Telephone Community Testing Paty Hare, [facility] [address] [facility] [address] [place] [phone] [place] [address] Social History Tobacco Use Types Packs/Day Years [...] or relatives? How often do you attend islam or 1 to 4 times per year 10/08 denominational services? Do you belong to any clubs or No 10/30/2018 organizations such as islam groups, unions, fraternal or athletic groups, or [...] this encounter Miscellaneous Notes Telephone Encounter - Paty Hare FNP - 11/10/2019 3:48 PM CDTN/A, left message for patient with negative result, RTW date, and callback number. KG-11/10/2019 documented in this encounter Plan of Treatment Not on filedocumented as of this encounter Goals Goal Patient Goal Associated Recent Patient-Stated? 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
--- OUTSIDE RECORDS SUMMARY | 2020-04-15 13:29 | XMS_ITS | Encounter Summary ---
:1975 Author Organization [facility] and It s Subsidiaries and Affiliates Address [address] [place] [address] Care Team Providers Name Role Phone GENTRY Braswell Unavailable Unavailable MD Romario Primary Care Provider gina Moralez II, MD, F. Unavailable Maggy Agustin MD Unavailable Napoleon Loyola MA Unavailable Unavailable Reason for Visit Consultation (Routine) Status Reason Specialty Diagnoses / Referred By Referred To Procedures Contact Contact Closed Orthopedic Surgery / Diagnoses Tear of meniscus of right knee as current injury, unspecified meniscus, unspecified tear type, initial encounter Theresa Doss, Orthopedics [address] [place] [address] Encounter Details Date Type Department Care Team Description 11/16/2019 Office Visit Marc Wu, Tear of lateral Orthopedics 5th Fl Conor Valencia MD meniscus of right [address], [address] knee, current, [address] [place], [place] [address] type, initial [id number] encounter [phone] 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 How often do you attend sabianist or 1 to 4 times per year 10/08 shinto services? Do you belong to any clubs or No 10/30/2018 organizations such as sabianist groups, unions, [employer] or athletic groups, or school groups? [...] Sign Reading Time Taken Comments Blood Pressure - - Pulse - - Temperature - - Respiratory Rate - - Oxygen Saturation - - Inhaled Oxygen Concentration - - Weight 122 kg (269 lb) 11/16/2019 8:33 AM CDT Height 167.6 cm (5' 6) 11/16/2019 8:33 AM CDT Body Mass Index 43.42 11/16/2019 8:33 AM CDT documented in this encounter Progress Notes Conor Wu MD - 11/16/2019 8:00 AM CDT CC: Right knee pain HISTORY HPI: 44-year-old female, insidious onset right knee pain for the last 2 months. Pain dull and achy all throughout knee, worse on lateral joint line. Denies any specific injury. Pain currently 4/10, dull and achy Frequent locking and catching, no giving way No numbness no tingling Has tried ibuprofen, ice, rest without any improvement. Has not tried injections, brace, physical therapy No prior knee injuries or surgeries Seen by PCP, obtained x-rays and MRI demonstrated lateral meniscus tear, referred Ortho Clinic for further evaluation. Lives at home with her Works at [employer] Enjoys doing fitness activities, however for the last couple months she has been unable to do so dueto her knee pain Denies history of heart attack, stroke, blood clot, cancer, diabetes Denies tobacco use ROS: Constitutional: Denies fever/chills Neurological: Denies numbness/tingling (any exceptions noted in orthopaedic exam) Psychiatric/Behavioral: Denies change in normal mood Eyes: Denies change in vision Cardiovascular: Denies chest pain Respiratory: Denies shortness of breath Hematologic/Lymphatic: Denies easy bleeding/bruising Skin: Denies new rash or skin lesions Gastrointestinal: Denies nausea/vomitting/diarrhea, change in bowel habits, abdominal pain Allergic/Immunologic: Denies adverse reactions to current medications Musculoskeletal: see HPI PAST MEDICAL HISTORY: Past Medical History: Diagnosis [...] week Gets together: Twice a week Attends shinto service: 1 to 4 times per year [...] fibrillation, Disp: 20 tablet, Rfl: 11 ??? metoprolol succinate (TOPROL-XL) 50 MG 24 hr tablet, Take 1 tablet (50 mg total) by mouth once daily., Disp: 30 tablet, Rfl: 5 ??? spironolactone (ALDACTONE) 25 MG tablet, Take 1 tablet (25 mg total) by mouth once daily., Disp: 30 tablet, Rfl: 5 ??? hydroCHLOROthiazide (HYDRODIURIL) 12.5 MG Tab, Take 1 tablet (12.5 mg total) by mouth once daily., Disp: 30 tablet, Rfl: 0 ??? metFORMIN (GLUCOPHAGE-XR) 500 MG XR 24hr tablet, Take 1 tablet (500 mg total) by mouth before dinner. (Patient not taking: Reported on 10/24/2019), Disp: 30 tablet, Rfl: 0 ??? naproxen (NAPROSYN) 500 MG tablet, Take [...] on 03/18/2019), Disp: 20 tablet, Rfl: 0 ALLERGIES: Review of patient's allergies indicates: No Known Allergies EXAM VITAL SIGNS: Ht 5' 6 (1.676 m) Wt 122 kg (269 lb) LMP 01/03/2019 BMI 43.42 kg/m?? PE: General: no acute distress, appears stated age, obese Neuro: alert and oriented x3 Psych: normal mood Head: normocephalic, atraumatic. Eyes: no scleral icterus Mouth: moist mucous membranes Cardiovascular: extremities warm and well perfused Lungs: breathing comfortably, equal chest rise bilat Skin: clean, dry, intact (any exceptions noted in below musculoskeletal exam) Musculoskeletal: RLE No gross deformities, wounds No effusion No crepitus with knee range of motion, No TTP Knee range of motion 0-110 degrees flexion. No varus or valgus instability at full extension or 30?? of flexion. Negative anterior/posterior drawer, negative Juan's + Saadia w/ pain Patella tracks midline with no instability Hip range of motion to 100?? of flexion, internal rotation to 20?? external rotation of 45?? Motor intact 5/5 hip flex, quad, Tib Ant, gastroc, EHL, FHL. Sensation intact saphenous, sural, deep/superficial peroneal, tibial nerves Palp DP/PT pulse, BCR LLE No gross deformities, wounds No effusion No crepitus with knee range of motion, No TTP Knee range of motion 0-130 degrees flexion. No varus or valgus instability at full extension or 30?? of flexion. Negative anterior/posterior drawer, negative Juan's Negative Saadia Patella tracks midline with no instability Hip range of motion to 100?? of flexion, internal rotation to 20?? external rotation of 45?? Motor intact 5/5 hip flex, quad, Tib Ant, gastroc, EHL, FHL. Sensation intact saphenous, sural, deep/superficial peroneal, tibial nerves Palp DP/PT pulse, BCR XRAYS: X-ray right knee demonstrate no acute fracture dislocation MR right knee demonstrate lateral meniscus tear. No ligamentous injury noted (I independently reviewed and interpreted the above imaging) MEDICAL DECISION MAKING Encounter Diagnosis Name Primary? Tear of lateral meniscus of right knee, current, unspecified tear type, initial encounter 44-year-old female, right lateral meniscus tear Counseled patient on medical diagnosis treatment options Discussed non operative management the form of Rest, ice, compression, elevation Anti-inflammatories PT Recommended referral to my sports colleagues for further evaluation, treatment, discussion of conservative versus operative management Conor Wu MD Orthopaedic Surgery documented in this encounter Plan of Treatment Not on filedocumented as of this encounter Goals Goal Patient Goal Associated Recent Patient-Stated? 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
--- OUTSIDE RECORDS SUMMARY | 2020-04-15 13:29 | XMS_ITS | Encounter Summary ---
:1975 Author Organization [facility] and It s Subsidiaries and Affiliates Address [address] [place] [address] Care Team Providers Name Role Phone GENTRY Braswell Unavailable Unavailable MD Romario Primary Care Provider gina Moralez II, MD, F. 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
--- OUTSIDE RECORDS SUMMARY | 2020-04-15 13:29 | XMS_ITS | Encounter Summary ---
:1975 Author Organization [facility] and It s Subsidiaries and Affiliates Address [address] [place] [address] Care Team Providers Name Role Phone GENTRY Braswell Unavailable Unavailable MD Romario Primary Care Provider gina Moralez II, MD, F. Unavailable Maggy Agustin MD Unavailable Napoleon Loyola MA Unavailable Unavailable Encounter Details Date Type Department Care Team Description 12/27/2019 Pharmacy Visit [facility] [address] [place], [place] [phone] Social History Tobacco Use [...] or relatives? How often do you attend zoroastrianism or 1 to 4 times per year 10/08 yazidism services? 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
--- OUTSIDE RECORDS SUMMARY | 2020-04-15 13:29 | XMS_ITS | Encounter Summary ---
:1975 Author Organization [facility] and It s Subsidiaries and Affiliates Address [address] [place] [address] Care Team Providers Name Role Phone GENTRY Braswell Unavailable Unavailable MD Romario Primary Care Provider gina Moralez II, MD, F. 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
--- OUTSIDE RECORDS SUMMARY | 2020-04-15 13:30 | XMS_ITS | Encounter Summary ---
:1975 Author Organization [facility] and It s Subsidiaries and Affiliates Address [address] [place] [address] Care Team Providers Name Role Phone GENTRY Braswell Unavailable Unavailable MD Romario Primary Care Provider gina Moralez II, MD, F. Unavailable Maggy Agustin MD Unavailable Napoleon Loyola MA Unavailable Unavailable Encounter Details Date Type Department Care Team Description 06/29/2019 Travel Social History Tobacco Use Types Packs/Day [...] or relatives? How often do you attend episcopalian or 1 to 4 times per year 10/08 latter-day services? Do you belong to any clubs or No 10/30/2018 organizations such as episcopalian groups, unions, fraternal or athletic groups, or [...] Assigned at Date Recorded Not on file COVID-19 Exposure Response Date Recorded In the last month, have you been in contact with No / Unsure 06/29/2019 6:57 AM CDT someone who was confirmed or suspected to have Coronavirus / COVID-19? documented as of this encounter Plan of Treatment Not on filedocumented as of this encounter Goals Goal Patient Goal Associated Recent Patient-Stated? 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
--- OUTSIDE RECORDS SUMMARY | 2020-04-15 13:30 | XMS_ITS | Encounter Summary ---
:1975 Author Organization [facility] and It s Subsidiaries and Affiliates Address [address] [place] [address] Care Team Providers Name Role Phone GENTRY Braswell Unavailable Unavailable MD Romario Primary Care Provider gina Moralez II, MD, F. Unavailable Maggy Agustin MD Unavailable Napoleon Loyola MA Unavailable Unavailable Encounter Details Date Type Department Care Team Description 08/01/2019 Travel Social History Tobacco Use Types Packs/Day [...] or relatives? How often do you attend mandaen or 1 to 4 times per year 10/08 sikhism services? Do you belong to any clubs or No 10/30/2018 organizations such as mandaen groups, unions, fraternal or athletic groups, or [...] month, have you been in contact with Yes 08/01/2019 7:18 PM CDT someone who was confirmed or suspected to have Coronavirus / COVID-19? documented as of this encounter Plan of Treatment Not on filedocumented as of this encounter Goals Goal Patient Goal Associated Recent Patient-Stated? 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
--- OUTSIDE RECORDS SUMMARY | 2020-04-15 13:30 | XMS_ITS | Encounter Summary ---
:1975 Author Organization [facility] and [facility] Subsidiaries and Affiliates Address [address] [place] [address] Care Team Providers Name Role Phone GENTRY Braswell Unavailable Unavailable MD Romario Primary Care Provider gina Moralez II, MD, F. Unavailable Maggy Agustin MD Unavailable Napoleon Loyola MA Unavailable Unavailable Reason for Referral Mammo (Routine) Status Reason Specialty Diagnoses / Procedures Referred By Sumaya freeman Referred To Contact Closed Radiology Diagnoses Screening for breast cancer Terra Rhoades MD Procedures Mammo Digital Screening Bilat w/ Ruben [address] [place] [phone] Phone: Electronically signed by Terra Rhoades MD at Reason for Visit Mammo (Routine) Status Reason Specialty Diagnoses / Procedures Referred By Sumaya freeman Referred To Contact Closed Radiology Diagnoses Screening for breast cancer Terra Rhoades MD Procedures Mammo Digital Screening Bilat w/ Ruben [address] [place] [phone] Phone: Encounter Details Date Type Department Care Team Description 07/28/2019 Hospital Encounter [facility] - [facility] - Terra Rhoades S creening for Diagnostic Ctr MD breast cancer [address] [place] [address] [phone] [place] [address] Social History Tobacco Use [...] / COVID-19? documented as of this encounter Medications at Time of Discharge Medication Sig Dispensed Refills Start Date End Date aspirin (ECOTRIN) 81 MG EC Take 81 mg by 0 01/06/2020 tablet mouth. flecainide (TAMBOCOR) 150 Take 1 tablet (150 20 tablet 11 08/11/2019 MG Tab mg total) by mouth continuous prn. Take 2 tablets for atrial fibrillation hydroCHLOROthiazide Take 1 tablet (12.5 30 tablet 3 019 08/11/2019 (HYDRODIURIL) 12.5 MG mg total) by mouth TabIndications: Essential once daily. hypertension metFORMIN (GLUCOPHAGE-XR) Take 1 tablet (500 30 tablet 3 08/11/2019 500 MG 24 hr tablet mg total) by mouth before dinner. metoprolol succinate Take 1 tablet by 30 tablet 5 0 10/24/2019 (TOPROL-XL) 50 MG 24 hr mouth once daily tablet naproxen (NAPROSYN) 500 MG Take 1 tablet (500 14 tablet 0 0 10/30/2018 01/06/2020 tablet mg total) by mouth 2 (two) times daily with meals. oxyCODONE-acetaminophen Take 1 tablet by 20 tablet 0 201801/06/2020 (PERCOCET) 10-325 mg per mouth every 6 (six) tablet hours as needed. documented as of this encounter Plan of Treatment Not on filedocumented as of this encounter Goals Goal Patient Goal Associated Recent Patient-Stated? 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 documented in this encounter Results Mammo Digital Screening Bilat w/ Ruben (07/28/2019 9:13 AM CDT) Specimen Impressions Performed At No mammographic evidence of malignancy. [facility] BI-RADS Category 1: Negative Recommendation: Routine screening mammogram in 1 year is recommended. Your estimated lifetime risk of breast c ancer (to age 85) based on Tyrer-Cuzick risk assessment model is Tyrer-Cuzick: 13 .86 %. According to the [place] [employer], patients with a lifetime breast cancer risk of 20% or higher might benefit from supp lemental screening tests. Narrative Performed At This result has an attachment that is no t available. Result: [facility] Mammo Digital Screening Bilat w/ Ruben History: Patient is 44 y.o. and is seen for a screening mammogr am. Films Compared: Prior images (if available) were compared. Findings: This procedure was performed using tomosynthesis. Comp uter-aided detection was utilized in the interpretation of this examination . The breasts are heterogeneously dense, which may obscu re small masses. There is no evidence of suspicious masses, microcalcif ications or architectural distortion. Performing Organization Address City/State/ZIP Code Phon e Number [facility] documented in this encounter Visit Diagnoses Diagnosis Screening for breast cancer Breast screening, unspecified documented in this encounter
--- OUTSIDE RECORDS SUMMARY | 2020-04-15 13:30 | XMS_ITS | Encounter Summary ---
:1975 Author Organization [facility] and It s Subsidiaries and Affiliates Address [address] [place] [address] Care Team Providers Name Role Phone GENTRY Braswell Unavailable Unavailable MD Romario Primary Care Provider gina Moralez II, MD, F. 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
--- OUTSIDE RECORDS SUMMARY | 2020-04-15 13:30 | XMS_ITS | Encounter Summary ---
:1975 Author Organization [facility] and It s Subsidiaries and Affiliates Address [address] [place] [address] Care Team Providers Name Role Phone GENTRY Braswell Unavailable Unavailable MD Romario Primary Care Provider gina Moralez II, MD, F. Unavailable Maggy Agustin MD Unavailable Napoleon Loyola MA Unavailable Unavailable Reason for Visit Reason Comments Abdominal Pain pt began c/o generalized abd ominal pain and nausea after lunch, at about 1400 today. Now also c /o vomiting and diarrhea. Encounter Details Date Type Department Care Team Description 08/01/2019 Emergency [facility] Shannon Kelley, Epig astric abdominal pain (Primary Dx); [facility] Abdominal pain; [address] Gastroenteritis; [place] [id number] [place], [place] Hypokalemia [phone] [id number] [phone] Social History Tobacco Use Types Packs/Day Years [...] 1 to 4 times per year 10/08 oriental orthodox services? Do you belong to any clubs or No 10/30/2018 organizations such as alevism groups, unions, fraYouMail or athletic groups, or school groups? How [...] / COVID-19? documented as of this encounter Last Filed Vital Signs Vital Sign Reading Time Taken Comments Blood Pressure 129/72 08/01/2019 8:52 PM CDT Pulse 62 08/01/2019 8:52 PM CDT Temperature 36.7 ??C (98 ??F) 08/01/2019 8:52 PM CDT Respiratory Rate 16 08/01/2019 8:52 PM CDT Oxygen Saturation 100% 08/01/2019 8:52 PM CDT Inhaled Oxygen Concentration - - Weight 119.7 kg (264 lb) 08/01/2019 7:23 PM CDT Height 170.2 cm (5' 7) 08/01/2019 7:23 PM CDT Body Mass Index 41.35 08/01/2019 7:23 PM CDT documented in this encounter Discharge Instructions InstructionsSchChristine melchor FNP - 08/01/2019Increase your fluid intake. Clear liquid diet for the rest of tonight then advance as tolerated. Return to the ED if your condition changes, progresses, or if you have any concerns. AttachmentsThe following attachments cannot be sent through Care Everywhere. Hypokalemia (Togolese)Abdominal Pain, Adult (Togolese)documented in this encounter Medications at Time of Discharge Medication Sig Dispensed Refills Start Date End Date aspirin (ECOTRIN) 81 MG EC Take 81 mg by 0 01/06/2020 tablet mouth. dicyclomine (BENTYL) 20 mg Take 1 tablet (20 20 tablet 0 11/18/2019 tablet mg total) by mouth 2 (two) times daily. As needed abd cramping flecainide (TAMBOCOR) 150 Take 1 tablet (150 [...] as needed. documented as of this encounter ED Notes Len Munoz LPN - 08/01/2019 7:47 PM CDTPatient presents to the ED with c/o abdominal pain that began around 2:30 PM after eating lunch. Nausea began around 7 PM. Patient reports loose stools and 8/10 generalized abdominal pain. Patient identifiers verified and correct for Remedios Schofield. LOC: The patient is awake, alert and aware of environment with an appropriate affect, the patient isoriented x 3 and speaking appropriately. APPEARANCE: Patient resting comfortably and in no acute distress, patient is clean and well groomed,patient's clothing is properly fastened. SKIN: The skin is warm and dry, color consistent with ethnicity, patient has normal skin turgor and moist mucus membranes, skin intact, no breakdown or bruising noted. MUSCULOSKELETAL: Patient moving all extremities spontaneously, no obvious swelling or deformities noted. RESPIRATORY: Airway is open and patent, respirations are spontaneous, patient has a normal effort and rate, no accessory muscle use noted. CARDIAC: Patient has a normal rate and regular rhythm, no periphreal edema noted, capillary refill < 3 seconds. ABDOMEN: +generalized abdominal pain +abdominal distention +nausea Christine Melendrez FNP - 08/01/2019 7:24 PM CDT Encounter Date: 08/01/2019 History Chief Complaint Patient presents with ??? Abdominal Pain pt began c/o generalized abdominal pain and nausea after lunch, at about 1400 today. Now also c/o vomiting and diarrhea. 44yo female presents to the ED for nausea, vomiting, abd pain, and diarrhea that started today around 1400 after eating lunch. Pt states that she had salad with mushrooms and chicken and then started to have nausea. No fever, CP, SOB, hematemesis, or rectal bleeding. Pain in her abdomen is located mostly in the upper section, described as cramping. No other complaints at this time. The history is provided by the patient. Review of patient's allergies indicates: No Known [...] ??? Drug use: No Review of Systems Constitutional: Positive for appetite change. Negative for fever. HENT: Negative for congestion. Respiratory: Negative for cough. Gastrointestinal: Positive for abdominal pain, diarrhea and nausea. Negative for blood in stool and vomiting. Genitourinary: Negative for dysuria. Musculoskeletal: Negative for back pain. Allergic/Immunologic: Negative for immunocompromised state. Neurological: Negative for headaches. Psychiatric/Behavioral: Negative for confusion. Physical Exam Initial Vitals [08/01/19 1943] BP Pulse Resp Temp SpO2 139/64 (!) 59 18 -- 100 % MAP -- Physical Exam Nursing note and vitals reviewed. Constitutional: Vital signs are normal. She appears well-developed and well- nourished. She is activeand cooperative. Non-toxic appearance. She does not have a sickly appearance. She does not appear ill. HENT: Head: Normocephalic and atraumatic. Eyes: Conjunctivae and EOM are normal. Neck: Normal range of motion. Neck supple. Cardiovascular: Normal rate and regular rhythm. Pulmonary/Chest: Effort normal and breath sounds normal. Abdominal: Soft. Normal appearance. She exhibits no distension. Bowel sounds are increased. There isgeneralized tenderness. There is guarding. There is no rigidity, no rebound and no CVA tenderness. Neurological: She is alert and oriented to person, place, and time. She has normal strength. GCS eyesubscore is 4. GCS verbal subscore is 5. GCS motor subscore is 6. Skin: Skin is warm, dry and intact. No bruising and no rash noted. No erythema. Psychiatric: She has a normal mood and affect. Her speech is normal and behavior is normal. Judgmentand thought content normal. Cognition and memory are normal. ED Course Procedures Labs Reviewed CBC W/ AUTO DIFFERENTIAL - Abnormal; Notable for the following components: Result Value WBC 13.24 (*) Mean Corpuscular Hemoglobin 26.8 (*) Mean Corpuscular Hemoglobin Conc 31.8 (*) Immature Grans (Abs) 0.07 (*) Peñuelas # 1.2 (*) All other components within normal limits COMPREHENSIVE METABOLIC PANEL - Abnormal; Notable for the following components: Potassium 3.1 (*) Glucose 115 (*) All other components within normal limits LIPASE LACTIC ACID, PLASMA TROPONIN I TROPONIN I URINALYSIS, REFLEX TO URINE CULTURE POCT GLUCOSE Imaging Results X-Ray Abdomen Flat And Erect (Final result) Result time 08/01/19 20:14:59 Final result by Maureen Calvin MD (08/01/19 20:14:59) Impression: Nonobstructive bowel gas pattern. Electronically signed by: Maureen Calvin MD Date: 08/01/2019 Time: 20:14 Narrative: EXAMINATION: XR ABDOMEN FLAT AND ERECT CLINICAL HISTORY: Unspecified abdominal pain TECHNIQUE: Flat and erect AP views of the abdomen were performed. COMPARISON: None FINDINGS: Nonspecific bowel gas pattern. No evidence to suggest obstruction. No free air identified. Scattered stool is seen in the colon. Partially visualized lung bases are clear. Medical Decision Making: Differential Diagnosis: Gastroenteritis, GERD, intestinal spasm, gastroenteritis, gastritis, ulcer, cholecystitis, cholelithiasis, gallstones, pancreatitis, ileus, small bowel obstruction, appendicitis, diverticulitis, colitis, constipation, intestinal gas pain, NSTEMI, arrhythmia Clinical Tests: Lab Tests: Ordered and Reviewed Radiological Study: Ordered and Reviewed Medical Tests: Reviewed and Ordered ED Management: Labs, IV fluids, bentyl, GI cocktail, zofran Xray unremarkable. WBC mildly elevated. Vitals do not suggest sepsis. LFTs normal. H&H stable.K mildly decreased at 3.1 and she was given oral replacement. The patient states that she feels much better after ED interventions and is tolerating oral fluids. Likely viral gastroenteritis. Encouraged symptomatic care and clear liquid diet for the remainder of the night. Pt to follow up with PCPwithin 3 days. I reviewed strict return precautions. In addition, pt is to return to the ED if condition changes, progresses, or if there are any concerns. Pt verbalized understanding, compliance, and agreement with the treatment plan. Clinical Impression: ICD-10-CM ICD-9-CM 1. Epigastric abdominal pain R10.13 789.06 2. Abdominal pain R10.9 789.00 3. Gastroenteritis K52.9 558.9 4. Hypokalemia E87.6 276.8 BRITNI Sheffield 08/01/192045 Ubaldo Moffett - 08/01/2019 7:18 PM CDTBed: EXAM 23 Expected date: Expected time: Means of arrival: Comments: documented in this encounter Plan of Treatment Not on filedocumented as of this encounter Goals Goal Patient Goal Associated Recent Patient-Stated? 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 XR ABDOMEN FLAT AND STAT 08/01/2019 8:14 Abdominal pain Re sults for this ERECT PM CDT procedure are i n the results section. POCT GLUCOSE Routine 08/01/2019 7:37 Results for this PM CDT procedure are i n the results section. CBC W/ AUTO STAT 08/01/2019 7:31 Results for this DIFFERENTIAL PM CDT procedure are i n the results section. TROPONIN I STAT 08/01/2019 7:31 Results for this PM CDT procedure are i n the results section. LIPASE STAT 08/01/2019 7:31 Results for this PM CDT procedure are i n the results section. LACTIC ACID, PLASMA STAT 08/01/2019 7:31 Resu lts for this PM CDT procedure are i n the results section. COMPREHENSIVE STAT 08/01/2019 7:31 Results fo r this METABOLIC PANEL PM CDT procedure ar e in the results section. EKG 12-LEAD 08/01/2019 12:00 AM CDT documented in this encounter Results EKG 12-lead (08/01/2019 8:17 PM CDT) Specimen Narrative Performed At Test Reason : R10.9, ROGELIO GE MUSE Vent. Rate : 061 BPM ? Atrial Rate : 061 BPM ?? P-R Int : 166 ms ?QRS D ur : 080 ms ?QT Int : 430 ms ? P-R-T Axe s : 050 -07 026 degrees ?? QTc Int : 432 ms Normal sinus rhythm Possible Left atrial enlargement Nonspecific T wave abnormality Borderline Abnormal ECG When compared with ECG of 28-MAR-2019 21 :36, Premature ventricular complexes are no l onger Present Confirmed by Randi Hawk MD ([id number]) on 08/03/2019 9:32:57 AM Referred By: AAAREFERR SELF ? Confirmed By:Randi Hawk MD Performing Organization Address [facility] Phon e Number ROGELIO GE MUSE ROGELIO GE MUSE N/A X-Ray Abdomen Flat And Erect (08/01/2019 8:14 PM CDT) Specimen Impressions Performed At [facility] Nonobstructive bowel gas pattern. Electronically signed by: Maureen Calvin MD Date: 08/01/2019 Time: 20:14 Narrative Performed At EXAMINATION: [facility] FLUENCY XR ABDOMEN FLAT AND ERECT CLINICAL HISTORY: Unspecified abdominal pain TECHNIQUE: Flat and erect AP views of the abdomen w ere performed. COMPARISON: None FINDINGS: Nonspecific bowel gas pattern. ??No evidence to sugges t obstruction. ??No free air identified. ??Scattered stool is seen in the colon. ??Partially visualized lung bases are cl ear. Procedure Note Interface, Rad Results In - 08/01/2019 8:17 PM CDT EXAMINATION: XR ABDOMEN FLAT AND ERECT CLINICAL HISTORY: Unspecified abdominal pain TECHNIQUE: Flat and erect AP views of the abdomen w ere performed. COMPARISON: None FINDINGS: Nonspecific bowel gas pattern. No evide nce to suggest obstruction. No free air identified. Scattered stool is seen in the colon. Partially visualized lung bases are clear. Impression: Nonobstructive bowel gas pattern. Electronically signed by:Maureen Calvin MD Date:08/01/2019 Time:20:14 Performing Organization Address [facility]/ZIP Code Phon e Number MMODEL FLUENCY MMODEL FLUENCY n/a POCT glucose (08/01/2019 7:37 PM CDT) Pathologist Sig nature POCT Glucose 105 70 - 110 mg/dL UNIPOC Specimen Blood Performing Organization Address [facility]/ZIP Code Phon e Number UNIPOC UNIPOC N/A Troponin I (08/01/2019 7:31 PM CDT) Pathologist [facility] [place] Troponin I <0.006 0.000 - 0.026 [facility] Comment: ng/mL [facility] The reference interval for Troponin I represents the 9 9th percentile cutoff for our facility and is consistent with 3rd generation assay performance. Specimen Performing Organization Address City/[facility]/ZIP Code Phon e Number [facility] [address] [place] [address] [place] Lactic acid, plasma (08/01/2019 7:31 PM CDT) Pathologist [facility] [place] Lactate (Lactic 2.0 0.5 - 2.2 [facility] Acid) Comment: mmol/L [facility] Falsely low lactic acid results can be found in sample s containing >=13.0 mg/dL total bilirubin and/or >=3.5 m g/dL direct bilirubin. Specimen Blood - Blood Performing Organization Address City/[facility]/ZIP Code Phon e Number [facility] [address] [facility] [place] [address] [place] Lipase (08/01/2019 7:31 PM CDT) Pathologist [facility] nature Lipase 11 4 - 60 U/L [facility] Specimen Blood - Blood Performing Organization Address City/[facility]/ZIP Code Phon e Number [facility] [address] [facility] [place] [address] [place] Comp. Metabolic Panel (08/01/2019 7:31 PM CDT) Pathologist [facility] [place] Sodium 137 136 - 145 [facility] mmol/L [facility] Potassium 3.1 (L) 3.5 - 5.1 [facility] mmol/L [facility] Chloride 98 95 - 110 [facility] mmol/L [facility] CO2 28 23 - 29 [facility] mmol/L [facility] Glucose 115 (H) 70 - 110 [facility] mg/dL [facility] BUN 14 6 - 20 mg/dL [facility] Creatinine 1.0 0.5 - 1.4 [facility] mg/dL [facility] Calcium 10.1 8.7 - 10.5 [facility] mg/dL [facility] Total Protein 8.3 6.0 - 8.4 [facility] g/dL [facility] Albumin 4.2 3.5 - 5.2 [facility] g/dL [facility] Total Bilirubin 0.3 0.1 - 1.0 [facility] Comment: mg/dL [facility] For infants and newborns, interpretation of results sh ould be based on gestational age, weight and in agreement with clini stefania observations. Premature recommended reference ranges: Up to 24 hours.............<8.0 mg/dL Up to 48 hours............<12.0 mg/dL 3-5 days..................<15.0 mg/dL 6-29 days.................<15.0 mg/dL Alkaline 75 55 - 135 U/L [facility] Phosphatase [facility] AST 21 10 - 40 U/L [facility] ALT 26 10 - 44 U/L [facility] Anion Gap 11 8 - 16 [facility] mmol/L [facility] eGFR if >60 >60 [facility] Vincentian mL/min/1.73 [facility] m^2 eGFR if non >60 >60 [facility] Comment: mL/min/1.73 [facility] Calculation used to obtain the estimated glomerular fi ltration m^2 rate (eGFR) is the CKD-EPI equation. Specimen Blood - Blood Performing Organization Address City/State/ZIP Code Phon e Number [facility] [address] [facility] [place] [address] [place] CBC W/ AUTO DIFFERENTIAL (08/01/2019 7:31 PM CDT) WBC 13.24 (H) 3.90 - 12.70 [facility] K/uL [facility] RBC 4.74 4.00 - 5.40 [facility] M/uL [facility] Hemoglobin 12.7 12.0 - 16.0 [facility] g/dL [facility] Hematocrit 39.9 37.0 - 48.5 [facility] % [facility] MCV 84 82 - 98 fL [facility] MCH 26.8 (L) 27.0 - 31.0 [facility] pg [facility] MCHC 31.8 (L) 32.0 - 36.0 [facility] g/dL [facility] RDW 14.1 11.5 - 14.5 [facility] Platelets 324 150 - 350 [facility] MPV 10.4 9.2 - 12.9 [facility] fL [facility] Immature 0.5 0.0 - 0.5 % [facility] Granulocytes [facility] Gran # (ANC) 7.4 1.8 - 7.7 [facility] Immature Grans (Abs) 0.07 (H) 0.00 - 0.04 [facility] Comment: [facility] Mild elevation in immature granulocytes is non specifi c and can be seen in a variety of conditions including stres s response, acute inflammation, trauma and . Correlation with other laboratory and clinical findings is essential. Lymph # 4.4 1.0 - 4.8 [facility] Peñuelas # 1.2 (H) 0.3 - 1.0 [facility] Eos # 0.2 0.0 - 0.5 [facility] Baso # 0.03 0.00 - 0.20 [facility] nRBC 0 0 /100 WBC [facility] Gran % 55.7 38.0 - 73.0 [facility] Lymph % 33.3 18.0 - 48.0 [facility] Peñuelas % 8.8 4.0 - 15.0 % [facility] Eosinophil % 1.5 0.0 - 8.0 % [facility] Basophil % 0.2 0.0 - 1.9 % [facility] Differential Method Automated [facility] Specimen Blood - Blood Performing Organization Address City/State/ZIP Code Phon e Number [facility] [address] [place] [address] [place] EKG 12-LEAD (08/01/2019 12:00 AM CDT) Narrative Performed At This result has an attachment that is no t available. documented in this encounter Visit Diagnoses Diagnosis Epigastric abdominal pain - Primary Abdominal pain, epigastric Abdominal pain Gastroenteritis Other and unspecified noninfectious kristal roenteritis and colitis Hypokalemia Hypopotassemia documented in this encounter Administered Medications Inactive Administered Medications - up to 3 most recent administrations Medication Order MAR Action Action Date Dose Rate Site aluminum-magnesium Given 08/01/2019 8:25 PM CDT 5 mLs hydroxide-simethicone 200-200-20 mg/5 mL suspension 5 mL 5 mL, Oral, ED 1 Time, On 08/01/19 at 2030, For 1 dose dicyclomine injection 20 mg Given 08/01/2019 7:56 PM CDT 20 mg Left Arm 20 mg, Intramuscular, ED 1 Time, On 08/01/19 at 1930, For 1 dose lidocaine HCl 2% oral solution 10 mL Given 08/01/2019 8:25 PM CDT 10 mLs 10 mL, Oral, ED 1 Time, On 08/01/19 at 2029, For 1 dose ondansetron injection 8 mg Given 08/01/2019 7:31 PM CDT 8 mg 8 mg, Intravenous, ED 1 Time, On 08/01/19 at 1930, For 1 dose potassium chloride SA CR tablet 20 mEq Given 08/01/2019 8:42 PM CDT 20 mEq 20 mEq, Oral, ED 1 Time, On 08/01/19 at 2044, For 1 dose sodium chloride 0.9% bolus 1,000 mL New Bag 08/01/2019 7:31 PM CDT 1,000 mLs 1,000 mL, Intravenous, Once, On 08/01/19 at 1930, For 1 dose documented in this encounter Active and Recently Administered Medications Times are shown in CDT. Scheduled Medication Order 07/30/2019 07/31/2019 08/01/2019 aluminum-magnesium hydroxide-simethicone 200-200-20 mg/5 mL suspension 5 mL (COMPLETED) 2024 (Given - Provid er: Len Munoz LPN) 5 mL, Oral, ED 1 Time, 08/01/19 at 2030, For 1 dose dicyclomine injection 20 mg (COMPLETED) 1955 (Given - Provider: Len Munoz LPN) 20 mg, Intramuscular, ED 1 Time, 08/01/19 at 1930, For 1 dose lidocaine HCl 2% oral solution 10 mL (COMPLETED) 2024 (Given - Provider: Len Munoz LPN) 10 mL, Oral, ED 1 Time, 08/01/19 at 2030, For 1 dose ondansetron injection 8 mg (COMPLETED) 1930 (Given - Provider: Dilma Webb, DIANDRA) 8 mg, Intravenous, ED 1 Time, Thu08/01/19 at 1929, For 1 dose potassium chloride SA CR tablet 20 mEq (COMPLETED) 2041 (Given - Provider: Len Munoz LPN) 20 mEq, Oral, ED 1 Time, 08/01/19 at 2044, For 1 dose sodium chloride 0.9% bolus 1,000 mL (COMPLETED) 1930 (New Bag - Provider: Dilma Webb, DIANDRA)2049 (Stopped - Provider: Len Munoz LPN) 1,000 mL, Intravenous, Once, On Thu08/01/19 at 1930, For 1 dose documented in this encounter
--- OUTSIDE RECORDS SUMMARY | 2020-04-15 13:30 | XMS_ITS | Encounter Summary ---
:1975 Author Organization [facility] and It s Subsidiaries and Affiliates Address [address] [place] [address] Care Team Providers Name Role Phone GENTRY Braswell Unavailable Unavailable MD Romario Primary Care Provider gina Moralez II, MD, F. Unavailable Maggy Agustin MD Unavailable Napoleon Loyola MA Unavailable Unavailable Encounter Details Date Type Department Care Team Description 10/21/2019 Orders Only [facility] er Theresa Doss MD Need for hepatitis C [address] screening test [place], [place] [address] [address] [place] [id number] Social History Tobacco Use Types Packs/Day Years [...] or relatives? How often do you attend faith or 1 to 4 times per year 10/08 church services? Do you belong to any clubs or No 10/30/2018 organizations such as faith groups, unions, fraternal or athletic groups, or [...] of this encounter Plan of Treatment Scheduled Orders Name Type Priority Associated Diagnoses Order S royce Hepatitis C antibody Lab Routine Need for hepatitis C Expected: 10/21/2019 screening test (Approximate) , Expires: 12/19/2020 documented as of this encounter Goals Goal Patient Goal Associated Recent Patient-Stated? 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
--- OUTSIDE RECORDS SUMMARY | 2020-04-15 13:30 | XMS_ITS | Encounter Summary ---
:1975 [address] [facility] and It s Subsidiaries and Affiliates Address [address] [place] [address] Care Team Providers Name Role Phone GENTRY Braswell Unavailable Unavailable MD Romario Primary Care Provider gina Moralez II, MD, F. Unavailable Maggy Agustin MD Unavailable Napoleon Loyola MA Unavailable Unavailable Encounter Details Date Type Department Care Team Description 06/29/2019 Lab Visit [facility]a - Lab - MOB 1st Rox Mendoza, Antibody response Fl examination [address] [facility] [place] [phone] [place], [place] [phone] [id number] Social History Tobacco Use Types Packs/Day Years [...] or relatives? How often do you attend tenriism or 1 to 4 times per year 10/08 mu-ism services? Do you belong to any clubs or No 10/30/2018 organizations such as tenriism groups, unions, fraternal or athletic groups, or [...] Pressure (02/21/2020 System Messag e 10:15 AM DIRECTOR OF HEALTH EDUCATION) Take at least Blood No Cutura, one BP reading Pressure Precious per week at various times of the day Maintain a low Diet No Cutura, sodium diet Precious Note: [place] [employer] (AHA) guideli francisco recommend less [...] Name Priority Date/Time Associated Diagnosis Comme nts COVID-19 (SARS Routine 06/29/2019 7:18 AM Antibody response R esults for this COV-2) IGG ANTIBODY CDT examination procedur e are in the results section. documented in this encounter Results SARS CoV-2 IgG (06/29/2019 7:18 AM CDT) Antibody SARS Negative Negative [facility] CoV-2 Comment: [facility] This test has not been reviewed by the FDA. It was dev eloped by [employer] for use with the Water Use Inspector i system . Performance characteristics have been verified by [facility] in a manner consistent with CLIA requirements. Results from antibody testing should not be used as th e sole basis to diagnose or exclude SARS-CoV-2 infection or to dete rmine infection status. This test is not for the screening of donated blood. No IgG antibodies to SARS-CoV-2 are detected. Negative results do not rule out SARS-CoV-2 infection, particularly in immunosuppressed patients and/or those who have bee n in close contact with the virus. Follow up testing with a molec ular assay should be considered to rule out infection in those pa tients. Specimen Blood - Blood Performing Organization Address City/State/ZIP Code Phon e Number [facility] [address] [facility] [address] [place] [id number] [place] [address] documented in this encounter Visit Diagnoses Diagnosis Antibody response examination documented in this encounter
--- OUTSIDE RECORDS SUMMARY | 2020-04-15 13:30 | XMS_ITS | Encounter Summary ---
:1975 Author Organization [facility] and It s Subsidiaries and Affiliates Address [address] [place] [address] Care Team Providers Name Role Phone GENTRY Braswell Unavailable Unavailable MD Romario Primary Care Provider gina Moralez II, MD, F. Unavailable Maggy Agustin MD Unavailable Napoleon Loyola MA Unavailable Unavailable [email or web address] [facility] Medical Insurance Verifier [phone] Jim Biggs Hypertension Digital Medicine Clinician MD Romario Hy[facility] Digital Medicine Responsibl e Provider 1, Employee Plan - [facility] Hypertension Digital Medicine Co ntract Unavailable Reason for Referral Mammo (Routine) Status Reason Specialty Diagnoses / Procedures Referred By C ontact Referred To Contact Closed Radiology Diagnoses Screening for breast cancer Terra Rhoades MD Procedures Mammo Digital Screening Bilat w/ Ruben [address] [place] [phone] Phone: Electronically signed by Terra Rhoades MD at Reason for Visit Reason Comments Post-op Evaluation [facility] Encounter Details Date Type Department Care Team Description 03/18/2019 Office Visit Sima - ENROLLMENT MANAGEMENT MANAGER - Ron Desir MD Post-operative state (Primary Dx); [address] Screening for breast cancer [address], [address] [place] [address] [place] [phone] [phone] Toolsmith: Alia Sauceda Social History Tobacco Use Types Packs/Day Years [...] or relatives? How often do you attend hinduism or 1 to 4 times per year 10/08 gnosticist services? Do you belong to any clubs or No 10/30/2018 organizations such as hinduism groups, unions, fraternal or athletic groups, or [...] Sign Reading Time Taken Comments Blood Pressure 124/82 03/18/2019 8:20 AM PIPEMAN Pulse - - Temperature - - Respiratory Rate - - Oxygen Saturation - - Inhaled Oxygen Concentration - - Weight 123.2 kg (271 lb 9.7 oz) 03/18/2019 8:20 AM PIPEMAN Height - - Body Mass Index 43.84 02/18/2019 10:01 AM PIPEMAN documented in this encounter Progress Notes Terra Rhoades MD - 03/18/2019 8:00 AM CST CC: Postoperative visit Remedios Schofield is a 43 y.o. female presents for a f/u for drain removal. Pt s/p TLH/BS??on 12/31/18 at [facility] secondary to uterine fibroids and ovarian cyst. Her postoperative course was complicated by postop pelvic abscess visit s/p IR drainage with drain placement on 01/13/19. Drain removed in clinic on 01/26/19. Denies constipation or difficulty with urination. Denies fever, chills, vaginalbleeding/discharge. Reports hotflashes- not interested in starting meds at this time. Discussed non-hormonal options. BP 124/82 Wt 123.2 kg (271 lb 9.7 oz) LMP 10/03/2018 BMI 43.84 kg/m?? ROS: GENERAL: No fever, chills, fatigability or weight loss. VULVAR: No pain, no lesions and no itching. VAGINAL: No relaxation, no itching, no discharge, no abnormal bleeding and no lesions. ABDOMEN: No abdominal pain. Denies nausea. Denies vomiting. No diarrhea. No constipation BREAST: Denies pain. No lumps. No discharge. URINARY: No incontinence, no nocturia, no frequency and no dysuria. CARDIOVASCULAR: No chest pain. No shortness of breath. No leg cramps. NEUROLOGICAL: No headaches. No vision changes. Physical Exam: GENERAL: alert, appears stated age and cooperative NEUROLOGIC: orientated to person, place and time, normal mood and affect CHEST: Normal respiratory effort NECK: normal appearance SKIN: no acne, striae, hirsutism ABDOMEN: abdomen is soft without significant tenderness Vagina- cuff visualized and intact, no discharge 1. Post-operative state 2. Screening for breast cancer Mammo Digital Screening Bilat w/ Ruben Maintain pelvic rest x 2 weeks. Return to work letter given. Order for MMG placed. Terra Rhoades MD, FACOG ENROLLMENT MANAGEMENT MANAGER Pager: [phone] documented in this encounter Plan of Treatment Not on filedocumented as of this encounter Goals Goal Patient Goal Associated Recent Patient-Stated? Author Type Problems Progress Blood Pressure Blood 197/101 Yes Myochsner, < 130/80 Pressure (02/21/2020 System Messag e 10:15 AM PIPEMAN) Take at least Blood No Cutura, one BP reading Pressure Precious per week at various times of the day Maintain a low Diet No Cutura, sodium diet Precious Note: [place] [employer] (AHA) guideli francisco recommend less [...] week. documented as of this encounter Results Mammo Digital Screening Bilat w/ Ruben (07/28/2019 9:13 AM CDT) Specimen Impressions Performed At No mammographic evidence of malignancy. [facility]OGEL[facility] MAMMOGRAPHY BI-RADS Category 1: Negative Recommendation: Routine screening mammogram in 1 year is recommended. Your estimated lifetime risk of breast c ancer (to age 85) based on Tyrer-Cuzick risk assessment model is Tyrer-Dariack: 13 .86 %. According to the [place] [employer], patients with a lifetime breast [...] documented in this encounter Visit Diagnoses Diagnosis Post-operative state - Primary Other postprocedural status Screening for breast cancer Breast screening, unspecified documented in this encounter
--- OUTSIDE RECORDS SUMMARY | 2020-04-15 13:30 | XMS_ITS | Encounter Summary ---
:[address] [facility] and It s Subsidiaries and Affiliates Address [address] [place] [address] Care Team Providers Name Role Phone GENTRY Braswell Unavailable Unavailable MD Romario Primary Care Provider gina Moralez II, MD, F. Unavailable Maggy Agustin MD Unavailable Napoleon Loyola MA Unavailable Unavailable Encounter Details Date Type Department Care Team Description 06/28/2019 Orders Only [facility] Rox Mendoza, Anti body response Center examination [address] [place], [place] [address] [place], [place] [phone] [id number] [phone] Social History Tobacco Use Types Packs/Day Years [...] 1 to 4 times per year 10/08 christian services? Do you belong to any clubs or No 10/30/2018 organizations such as uatsdin groups, unions, fraDelectable or athletic groups, or school groups? How [...] Pressure (02/21/2020 System Messag e 10:15 AM INSIDE SALES ADMINISTRATOR) Take at least Blood No Cutura, one BP reading Pressure Precious per week at various times of the day Maintain a low Diet No Cutura, sodium diet Precious Note: [place] [employer] (AHA) guideli francisco recommend less [...] week. documented as of this encounter Results SARS CoV-2 IgG (06/29/2019 7:18 AM CDT) Antibody SARS Negative Negative [facility] CoV-2 Comment: [facility] This test has not been reviewed by the FDA. It was dev eloped by [employer] for use with the Adhesive Primer i system . Performance characteristics have been verified by [facility] [employer] in a manner consistent with CLIA requirements. [...] e Number [facility] [address] [place] [address] [place] documented in this encounter Visit Diagnoses Diagnosis Antibody response examination documented in this encounter
--- OUTSIDE RECORDS SUMMARY | 2020-04-15 13:30 | XMS_ITS | Encounter Summary ---
:1975 Author Organization [facility] and It s Subsidiaries and Affiliates Address [address] [place] [address] Care Team Providers Name Role Phone GENTRY Braswell Unavailable Unavailable MD Romario Primary Care Provider gina Moralez II, MD, F. Unavailable Maggy Agustin MD Unavailable Napoleon Loyola MA Unavailable Unavailable [email or web address] [facility] Vice President Payer Jim Biggs Hypertension Digital Medicine Clinician MD Romario Hypertension Digital Medicine Responsibl e Provider 1, Employee Plan - [facility] Hypertension Digital Medicine Co ntract Unavailable Reason for Visit Reason Comments Shortness of Breath beginning at 1900 has been h aving chest fluttering feeling and SOB. Pt reports taking cold medicine today. also reports has ekg machine at home and was in [place], reports feeling of near syncope. Encounter Details Date Type Department Care Team Description 03/28/2019 Emergency [facility] Joseph Paz MD PVC's (premature ventricular contraction s) (Primary Dx); [facility] [address] Palpitations [address] [facility] [place] [address] [place] [phone] Social History Tobacco Use Types Packs/Day Years [...] 1 to 4 times per year 10/08 [employer]? Do you belong to any clubs [...] Sign Reading Time Taken Comments Blood Pressure 158/84 03/28/2019 9:39 PM MATERIAL HAULER Pulse 84 03/28/2019 9:39 PM MATERIAL HAULER Temperature 36.6 ??C (97.8 ??F) 03/28/2019 9:38 PM MATERIAL HAULER Respiratory Rate 20 03/28/2019 9:38 PM MATERIAL HAULER Oxygen Saturation 100% 03/28/2019 9:39 PM MATERIAL HAULER Inhaled Oxygen Concentration - - Weight 122 kg (269 lb) 03/28/2019 7:50 PM MATERIAL HAULER Height 170.2 cm (5' 7) 03/28/2019 7:50 PM MATERIAL HAULER Body Mass Index 42.13 03/28/2019 7:50 PM MATERIAL HAULER documented in this encounter Discharge Instructions AttachmentsThe following attachments cannot be sent through Care Everywhere. Ventricular Contractions, Premature (Zambian)documented in this encounter Medications at Time of [...] before dinner. metoprolol succinate Take 1 tablet (50 90 tablet 3 01/20/20 19 07/25/2019 (TOPROL-XL) 50 MG 24 hr mg total) by mouth tablet once daily. naproxen (NAPROSYN) 500 MG Take 1 tablet (500 14 tablet 0 0 10/30/2018 01/06/2020 tablet mg total) by mouth 2 (two) times daily with meals. oxyCODONE-acetaminophen Take 1 tablet by 20 tablet 0 201801/06/2020 (PERCOCET) 10-325 mg per mouth every 6 (six) tablet hours as needed. documented as of this encounter ED Notes Lindsay Long RN - 03/28/2019 9:33 PM CSTDrDarell Paz at bedside. indsay Long RN - 03/28/2019 8:57 PM CSTAwake and alert. Respirations even and unlabored. Family members at bedside. indsay Long RN - 03/28/2019 7:45 PM MATERIAL HAULER Patient placed on continuous telemetry monitor, automatic blood pressure cuff and continuous pulse oximeter. oseph Paz MD - 03/28/2019 7:43 PM CST Encounter Date: 03/28/2019 History Chief Complaint Patient presents with ??? Shortness of Breath beginning at 1900 has been having chest fluttering feeling and SOB. Pt reports taking cold medicine today. also reports has ekg machine at home and was in [facility], reports feeling of near syncope. Remedios Schofield is a 43 y.o. female who has a past medical history of A-fib, Atrial fibrillation (1982), Atrial fibrillation, Bronchitis, Fibroid, uterine, and Hypertension. The patient presents to the ED due to sudden onset SOB associated with palpitations, which started at 19:00 this evening. She used a portable EKG machine and saw that she was in [facility]. She has a history of AFib, currently on metoprolol, HCTZ, and aspirin. She is not currently on any flecainide or other anti-dysrhythmic. She reports recent URI symptoms, including cough and congestion, and has been taking pinn-xne-wwvvera medicine including decongestants identify histamines. She denies any severe chest pain, fever, nausea/vomiting/diarrhea, abdominal pain, urinary complaints, or any other concerns at this time. She was admitted to the hospital 03/2018 due to Afib. She last saw cardiology 04/2018. She denies any episodes of AFib or arrhythmia since that time. Review of patient's allergies indicates: No Known Allergies Past Medical History: Diagnosis Date ??? A-fib ??? Atrial fibrillation 1982 ??? Atrial fibrillation ??? Bronchitis ??? Fibroid, uterine ??? Hypertension Past Surgical History: Procedure Laterality Date ??? HYSTERECTOMY ??? MYOMECTOMY 2015 fibroids Family History Problem [...] Drug use: No Review of Systems Constitutional: Negative for chills and fever. HENT: Negative for sore throat. Respiratory: Positive for chest tightness and shortness of breath. Negative for cough. Cardiovascular: Negative for chest pain. Gastrointestinal: Negative for nausea and vomiting. Genitourinary: Negative for dysuria, frequency and urgency. Musculoskeletal: Negative for back pain. Skin: Negative for rash and wound. Neurological: Negative for syncope and weakness. Hematological: Does not bruise/bleed easily. Psychiatric/Behavioral: Negative for agitation, behavioral problems and confusion. Physical Exam Initial Vitals [03/28/19 1950] BP Pulse Resp Temp SpO2 (!) 184/106 83 20 98.4 ??F (36.9 ??C) 95 % MAP -- Physical Exam Nursing note and vitals reviewed. Constitutional: She appears well-developed and well-nourished. She is not diaphoretic. No distress. HENT: Head: Normocephalic and atraumatic. Mouth/Throat: Oropharynx is clear and moist. Eyes: EOM are normal. Pupils are equal, round, and reactive to light. Neck: No tracheal deviation present. Cardiovascular: Normal rate, normal heart sounds and intact distal pulses. An irregularly irregular rhythm present. Frequent PVCs on monitor, underlying sinus rhythm. Pulmonary/Chest: Breath sounds normal. No stridor. No respiratory distress. She has no wheezes. Abdominal: Soft. Bowel sounds are normal. She exhibits no distension and no mass. There is no tenderness. Musculoskeletal: Normal range of motion. She exhibits no edema. Neurological: She is alert and oriented to person, place, and time. She has normal strength. No cranial nerve deficit or sensory deficit. Skin: Skin is warm and dry. Capillary refill takes less than 2 seconds. No pallor. Psychiatric: She has a normal mood and affect. Her behavior is normal. Thought content normal. ED Course Procedures Labs Reviewed CBC WITHOUT DIFFERENTIAL - Abnormal; Notable for the following components: Result Value Hemoglobin 11.7 (*) Mean Corpuscular Hemoglobin 26.5 (*) Mean Corpuscular Hemoglobin Conc 31.0 (*) All other components within normal limits COMPREHENSIVE METABOLIC PANEL - Abnormal; Notable for the following components: Glucose 139 (*) AST 153 (*) ALT 62 (*) All other components within normal limits TROPONIN I B-TYPE NATRIURETIC PEPTIDE EKG Readings: (Independently Interpreted) Initial Reading: No STEMI. Previous EKG: Compared with most recent EKG Sinus rhythm with frequent PVCs, rate 86, no ST changes or ischemia, normal intervals. Compared to prior EKG 01/2019, PVCs are new, otherwise no significant change. Repeat EKG: Sinus rhythm with single PVC, rate 88, no ST changes or ischemia, normal intervals. Compared to prior EKG PVCs are less frequent, no other significant change. Imaging Results X-Ray Chest AP Portable (Final result) Result time 03/28/19 20:39:13 Final result by Luis Sheikh MD (03/28/19 20:39:13) Impression: No detrimental change or radiographic acute intrathoracic process seen. Electronically signed by: Luis Sheikh MD Date: 03/28/2019 Time: 20:39 Narrative: EXAMINATION: XR CHEST AP PORTABLE CLINICAL HISTORY: palpitations; TECHNIQUE: Single frontal view of the chest was performed. COMPARISON: Chest radiograph 01/11/2019 FINDINGS: No detrimental change. Monitoring leads overlie the chest.The lungs are clear, with normal appearance of pulmonary vasculature and no pleural effusion or pneumothorax. The cardiac silhouette is normal in size. The hilar and mediastinal contours are unremarkable. Bones are intact. Medical Decision Making: History: Old Medical Records: I decided to obtain old medical records. Old Records Summarized: other records. <> Summary of Records: Patient with history of a-fib. Last seen by Cardiology 04/2018. Started on flecainide 300 mg as needed for a-fib. Recommended weight loss and HTN control or will likely need anticoagulation. Initial Assessment: 43 yo F with PAF on flecainide as needed, HTN on metoprolol, presents to ED with SOB, palpitations starting suddenly this evening around 19:00. Frequent PVCs on monitor, patient hypertensive but vitals otherwise reassuring. Will obtain cardiac evaluation, basic labs, CXR, and continue to monitor. Differential Diagnosis: Differential Diagnosis includes, but is not limited to: ACS/RI, PE, aortic dissection, pneumothorax, cardiac tamponade, pericarditis/myocarditis, pneumonia,infection/abscess, lung mass, trauma/fracture, costochondritis/pleurisy, MSK pain/contusion, GERD, biliary disease, pancreatitis, anemia Clinical Tests: Lab Tests: Ordered and Reviewed Radiological Study: Ordered and Reviewed Medical Tests: Reviewed and Ordered ED Management: EKG with frequent PVCs, no atrial fib or RVR. CXR clear. Labs unremarkable, troponin/BNP negative. Vitals have remained stable. Repeat EKG stable, PVCs less frequent. Patient well-appearing on reassessment. She reports her blood pressure has been well controlled recently. She is instructed follow up with her rails developer as soon as possible for re- evaluation. She was given strict return precautions including worsening symptoms, persistent palpitations, chest pain/shortness of breath, or any other concerns. On re-evaluation, the patient's status has improved. After complete ED evaluation, clinical impression is most consistent with palpitations, PVCs. Cardiology follow-up within 2-3 days was recommended. After taking into careful account the patient's history, physical exam findings, as well as empirical and objective data obtained throughout ED workup, I feel no emergent medical condition has been identified. No further evaluation or admission was felt to be required, and the patient is stable for discharge from the ED. The patient and any additional family present were updated with test results, overall clinical impression, and recommended further plan of care, including discharge instructions as provided and outpatient follow-up for continued evaluation and management as needed. All questions were answered. The patient expressed understanding and agreed with current plan for discharge and follow-up plan of care. Strict ED return precautions were provided, including return/worsening of current symptoms, new symptoms, or any other concerns. Clinical Impression: ICD-10-CM ICD-9-CM 1. PVC's (premature ventricular contractions) I49.3 427.69 2. Palpitations R00.2 785.1 Disposition: Disposition: Discharged Condition: Stable Joseph Paz MD [id number] Lindsay Pendleton RN - 03/28/2019 7:40 PM CSTBed: EXAM 25 Expected date: Expected time: Means of arrival: Comments: VIP RIAL HAULER Lindsay Long RN - 03/28/2019 7:40 PM CSTPatient identifiers for Remedios Schofield checked and correct. LOC: The patient is awake, alert and aware of environment with an appropriate affect, the patient isoriented x 3 and speaking appropriately. APPEARANCE: Patient resting comfortably and in no acute distress, patient is clean and well groomed,patient's clothing are properly fastened. SKIN: The skin is warm and dry, patient has normal skin turgor and moist mucus membranes, skin intact, no breakdown or brusing noted. MUSKULOSKELETAL: Patient moving all extremities well, no obvious swelling or deformities noted. RESPIRATORY: Airway is open and patent, respirations are spontaneous, patient has a normal effort and rate. CARDIAC: Patient has a normal rate and irregular, no periphreal edema noted. Lindsay Pendleton RN - 03/28/2019 7:40 PM CSTComplaining of feeling SOB since 7 p.m. Also states heart rhythm felt irregular. documented in this encounter Plan of Treatment Not on filedocumented as of this encounter Goals Goal Patient Goal Associated Recent Patient-Stated? Author Type Problems Progress Blood Pressure Blood 197/101 Yes Myochsner, < 130/80 Pressure (02/21/2020 System Messag e 10:15 AM MATERIAL HAULER) Take at least Blood No Cutura, one BP reading Pressure Precious per week at various times of the day Maintain a low Diet No Cutura, sodium diet Precious Note: [place] [employer] (AHA) guideli francisco recommend less than 2000mg of dietary salt per day. Reduce portion size Diet No Cutur a, Precious DIET - Meal Planning Diet No Cutu ra, Precious Note: Your goal is to incorporate meal plannin g in your daily routine. Reduce portions Diet No Cutura, C hristina Meal plan Diet No Cutura, Marcoa noah Exercise at least 150 minutes per week. Exercise No Cutura, Precious Note: Your goal is to increase exercise routin e and start Spin Classes next week. documented as of this encounter Procedures Procedure Name Priority Date/Time Associated Diagnosis Comme nts HC EKG STAT 03/28/2019 9:36 Palpitations Results for this PM MATERIAL HAULER procedure are i n the results section. XR CHEST AP PORTABLE STAT 03/28/2019 8:32 Res ults for this PM MATERIAL HAULER procedure are i n the results section. CBC WITHOUT STAT 03/28/2019 8:11 Results for this DIFFERENTIAL PM MATERIAL HAULER procedure are i n the results section. TROPONIN I STAT 03/28/2019 8:11 Results for this PM MATERIAL HAULER procedure are i n the results section. B-TYPE NATRIURETIC STAT 03/28/2019 8:11 Resul ts for this PEPTIDE PM MATERIAL HAULER procedure are i n the results section. COMPREHENSIVE STAT 03/28/2019 8:11 Results fo r this METABOLIC PANEL PM MATERIAL HAULER procedure ar e in the results section. HC EKG STAT 03/28/2019 7:45 Palpitations Results for this PM MATERIAL HAULER procedure are i n the results section. EKG 12-LEAD 03/28/2019 12:00 AM MATERIAL HAULER documented in this encounter Results EKG 12-lead (03/28/2019 9:36 PM MATERIAL HAULER) Specimen Narrative Performed At Test Reason : R00.2, ROGELIO GE MUSE Vent. Rate : 088 BPM ? Atrial Rate : 088 BPM ?? P-R Int : 160 ms ?QRS D ur : 090 ms ?QT Int : 378 ms ? P-R-T Axe s : 042 013 020 degrees ?? QTc Int : 457 ms Sinus rhythm with occasional Premature v entricular complexes Otherwise normal ECG When compared with ECG of 28-MAR-2019 19 :45, No significant change was found Confirmed by Fish Kumar MD ([id number]) on 03/29/2019 11:42:26 AM Referred By: AAAREFERR SELF ? Confirmed By:Fish Kumar MD Performing Organization Address City/State/ZIP Code Phon e Number ROGELIO GE MUSE ROGELIO GE MUSE N/A X-Ray Chest AP Portable (03/28/2019 8:32 PM MATERIAL HAULER) Specimen Impressions Performed At [email or web address] [employer] No detrimental change or radiographic acute intrathora cic process seen. Electronically signed by: Maggy Jerome Date: 03/28/2019 Time: 20:39 Narrative Performed At EXAMINATION: VivoxODEL FLUENCY XR CHEST AP PORTABLE CLINICAL HISTORY: palpitations; TECHNIQUE: Single frontal view of the chest was per formed. COMPARISON: Chest radiograph 01/11/2019 FINDINGS: No detrimental change. ??Monitoring leads overlie the chest.The lungs are clear, with normal appearance of pulmonary vascula ture and no pleural effusion or pneumothorax. The cardiac silhouette is normal in size. The hilar an d mediastinal contours are unremarkable. Bones are intact. Procedure Note Interface, Rad Results In - 03/28/2019 8:41 PM MATERIAL HAULER EXAMINATION: XR CHEST AP PORTABLE CLINICAL HISTORY: palpitations; TECHNIQUE: Single frontal view of the chest was per formed. COMPARISON: Chest radiograph 01/11/2019 FINDINGS: No detrimental change. Monitoring leads overlie the chest.The lungs are clear, with normal appearance of pulmonary vasculature and no pleural effusion or pneumothorax. The cardiac silhouette is normal in size . The hilar and mediastinal contours are unremarkable. Bones are intact. Impression: No detrimental change or radiographic ac [place] intrathoracic process seen. Electronically signed by:Luis Sheikh MD Date:03/28/2019 Time:20:39 Performing Organization Address City/State/ZIP Code Phon e Number MMODEL FLUENCY MMODEL FLUENCY n/a Brain natriuretic peptide (03/28/2019 8:11 PM MATERIAL HAULER) Pathologist Sig nature BNP 11Comment: Values of 0 - 99 pg/mL [facility] less than 100 pg/ml [facility] are consistent with non-CHF populations. Specimen Blood - Blood Performing Organization Address City/[facility] - [address] [place] [address] [place] Troponin I (03/28/2019 8:11 PM MATERIAL HAULER) Pathologist [facility] Troponin I <0.006 0.000 - 0.026 [facility] Comment: ng/mL [facility] The reference interval for Troponin I represents the 9 9th percentile cutoff for our facility and is consistent with 3rd generation assay performance. Specimen Blood - Blood Performing Organization Address [facility] - [address] [place] [address] [place] Comprehensive metabolic panel (03/28/2019 8:11 PM MATERIAL HAULER) Pathologist [facility] Sodium 138 136 - 145 [facility] mmol/L [facility] Potassium 3.5 3.5 - 5.1 [facility] mmol/L [facility] Chloride 102 95 - 110 [facility] mmol/L [facility] CO2 24 23 - 29 [facility] mmol/L [facility] Glucose 139 (H) 70 - 110 [facility] mg/dL [facility] BUN 6 6 - 20 mg/dL [facility] Creatinine 1.0 0.5 - 1.4 [facility] mg/dL [facility] Calcium 9.8 8.7 - 10.5 [facility] mg/dL [facility] Total Protein 7.5 6.0 - 8.4 [facility] g/dL [facility] Albumin 3.9 3.5 - 5.2 [facility] g/dL [facility] Total Bilirubin 0.2 0.1 - 1.0 [facility] Comment: mg/dL [facility] For infants and newborns, interpretation of results sh ould be based on gestational age, weight and in agreement with clini stefania observations. Premature Infant recommended reference ranges: Up to 24 hours.............<8.0 mg/dL Up to 48 hours............<12.0 mg/dL 3-5 days..................<15.0 mg/dL 6-29 days.................<15.0 mg/dL Alkaline 55 55 - 135 U/L [facility] Phosphatase [facility] AST 153 (H) 10 - 40 U/L [facility] ALT 62 (H) 10 - 44 U/L [facility] Anion Gap 12 8 - 16 [facility] mmol/L [facility] eGFR if >60 >60 [facility] Polish mL/min/1.[address] [facility] m^2 eGFR if non >60 >60 [facility] Comment: mL/min/1.[address] [facility] Calculation used to obtain the estimated glomerular fi ltration m^2 rate (eGFR) is the CKD-EPI equation. Specimen Blood - Blood Performing Organization Address City/[facility] [place] Phon e Number [facility] - [address] [place] [address] [place] CBC Without Differential (03/28/2019 8:11 PM MATERIAL HAULER) Pathologist Sig nature WBC 7.59 3.90 - 12.70 K/uL [facility] RBC 4.41 4.00 - 5.40 M/uL [facility] Hemoglobin 11.7 (L) 12.0 - 16.0 g/dL [facility] Hematocrit 37.7 37.0 - 48.5 % [facility] MCV 86 82 - 98 [facility] MCH 26.5 (L) 27.0 - 31.0 pg [facility] MCHC 31.0 (L) 32.0 - 36.0 g/dL [facility] RDW 14.1 11.5 - 14.5 % [facility] Platelets 296 150 - 350 K/uL [facility] MPV 10.6 9.2 - 12.9 [facility] Specimen Blood - Blood Performing Organization Address City/State/ZIP Code Phon e Number [facility] - [address] [place], [place] [address] [place] EKG 12-lead (03/28/2019 7:45 PM MATERIAL HAULER) Specimen Narrative Performed At Test Reason : R00.2, ROGELIO GE MUSE Vent. Rate : 086 BPM ? Atrial Rate : 086 BPM ?? P-R Int : 138 ms ?QRS D ur : 094 ms ?QT Int : 368 ms ? P-R-T Axe s : 039 025 023 degrees ?? QTc Int : 440 ms Sinus rhythm with frequent Premature manjula tricular complexes Otherwise normal ECG When compared with ECG of 11-JAN-2019 16 :50, Premature ventricular complexes are now Present Confirmed by José JOSEPH, Fish Page ([id number]) on 03/29/2019 11:42:18 AM Referred By: AAAREFERR SELF ? Confirmed By:Fish Kumar MD Performing Organization Address City/[facility]/ZIP Code Phon e Number ROGELIO GE MUSE ROGELIO GE MUSE N/A EKG 12-LEAD (03/28/2019 12:00 AM MATERIAL HAULER) Narrative Performed At This result has an attachment that is no t available. documented in this encounter Visit Diagnoses Diagnosis PVC's (premature ventricular contraction s) - Primary Other premature beats Palpitations documented in this encounter
--- OUTSIDE RECORDS SUMMARY | 2020-04-15 13:30 | XMS_ITS | Encounter Summary ---
:1975 Author Organization [facility] and It s Subsidiaries and Affiliates Address [address] [place] [address] Care Team Providers Name Role Phone GENTRY Braswell Unavailable Unavailable MD Romario Primary Care Provider gina Moralez II, MD, F. Unavailable Maggy Agustin MD Unavailable Napoleon Loyola MA Unavailable Unavailable Reason for Referral MRI/CAT Scan (Routine) Status Reason Specialty Diagnoses / Procedures Referred By C ontact Referred To Contact Closed Radiology Diagnoses Tear of meniscus of right knee as current injury, unspecified meniscus, unspecified tear type, initial encounter Theresa Doss MD Procedures MRI Knee Without Contrast Right [address] [place] [address] 15 Phone: Electronically signed by Theresa Doss MD at Reason for Visit Reason Comments Knee Pain right Encounter Details Date Type Department Care Team Description 10/24/2019 Office Visit [place] [facility] Theresa Doss MD Tear of meniscus of right knee as curren t injury, unspecified meniscus, unspecified tear type, initial encounter (Primary Dx); [facility] [address] [facility] Essential hypertension; [address] [place] [address] Prediabetes [place] [phone] Hand Expansion Envelope Maker: Nirmal Zheng Social History Tobacco Use Types [...] or relatives? How often do you attend jainism or 1 to 4 times per year 10/08 mormon services? Do you belong to any clubs or No 10/30/2018 organizations such as jainism groups, unions, fraternal or athletic groups, or [...] Sign Reading Time Taken Comments Blood Pressure 158/108 10/24/2019 2:59 PM CDT Pulse 77 10/24/2019 2:19 PM CDT Temperature 37 ??C (98.6 ??F) 10/24/2019 2:19 PM CDT Respiratory Rate - - Oxygen Saturation 98% 10/24/2019 2:19 PM CDT Inhaled Oxygen Concentration - - Weight 122.1 kg (269 lb 4.7 oz) 10/24/2019 2:19 PM CDT Height 170.2 cm (5' 7) 10/24/2019 2:19 PM CDT Body Mass Index 42.18 10/24/2019 2:19 PM CDT documented in this encounter Progress Notes Theresa Doss MD - 10/24/2019 2:20 PM CDT Chief Complaint Patient presents with ??? Knee Pain right HPI Remedios Schofield is a 44 y.o. female with multiple medical diagnoses as listed in the medical historyand problem list that presents for evaluation for right knee pain She has had right knee pain for the past two to three weeks associated with a popping sound and painwith straightening her knee, pain relief with turning her knee to the side and keeping it flexed. She has some swelling. She has not fallen or had any injury. She has been having leg cramps but does not want to get back on K replacement. She has stopped metformin HPI Patient Active Problem List Diagnosis ??? A-fib ??? Essential hypertension ??? Morbid obesity ??? Prediabetes ??? Postoperative infection ??? Post op infection ROS Review of Systems Constitutional: Negative for activity change and unexpected weight change. HENT: Negative for hearing loss, rhinorrhea and trouble swallowing. Eyes: Negative for discharge and visual disturbance. Respiratory: Negative for chest tightness and wheezing. Cardiovascular: Negative for chest pain and palpitations. Gastrointestinal: Negative for blood in stool, constipation, diarrhea and vomiting. Endocrine: Negative for polydipsia and polyuria. Genitourinary: Negative for difficulty urinating, dysuria, hematuria and menstrual problem. Musculoskeletal: Positive for arthralgias and joint swelling. Negative for neck pain. Neurological: Positive for headaches. Negative for weakness. Psychiatric/Behavioral: Negative for confusion and dysphoric mood. Physical Exam Vitals: 10/24/19 1419 BP: (!) 148/96 BP Location: Left arm Patient Position: Sitting BP Method: Large (Manual) Pulse: 77 Temp: 98.6 ??F (37 ??C) TempSrc: Temporal SpO2: 98% Weight: 122.1 kg (269 lb 4.7 oz) Height: 5' 7 (1.702 m) Body mass index is 42.18 kg/m??. Weight: 122.1 kg (269 lb 4.7 oz) Height: 5' 7 (170.2 cm) Physical Exam Vitals signs and nursing note reviewed. Constitutional: General: She is not in acute distress. Appearance: She is well-developed. Neck: Musculoskeletal: Neck supple. Cardiovascular: Rate and Rhythm: Normal rate and regular rhythm. Heart sounds: No murmur. No friction rub. No gallop. Pulmonary: Effort: Pulmonary effort is normal. No respiratory distress. Breath sounds: Normal breath sounds. No wheezing or rales. Musculoskeletal: Comments: Right knee with TTP in popliteal fossae Pain with full extension, crepitus with flexion No ligamentous laxity Neg renée Lymphadenopathy: Cervical: No cervical adenopathy. Skin: General: Skin is warm and dry. Findings: No rash. Neurological: Mental Status: She is alert and oriented to person, place, and time. Psychiatric: Behavior: Behavior normal. ALLERGIES AND MEDICATIONS: updated and reviewed. Review of patient's allergies indicates: No Known Allergies Medication List with Changes/Refills New Medications SPIRONOLACTONE (ALDACTONE) 25 MG TABLET Take 1 tablet (25 mg total) by mouth once daily. Current Medications ASPIRIN (ECOTRIN) 81 MG EC TABLET Take 81 mg by mouth. FLECAINIDE (TAMBOCOR) 150 MG TAB Take 1 tablet (150 mg total) by mouth continuous prn. Take 2 tablets for atrial fibrillation HYDROCHLOROTHIAZIDE (HYDRODIURIL) 12.5 MG TAB Take 1 tablet (12.5 mg total) by mouth once daily. METFORMIN (GLUCOPHAGE-XR) 500 MG XR 24HR TABLET Take 1 tablet (500 mg total) by mouth before dinner. NAPROXEN (NAPROSYN) 500 MG TABLET Take 1 tablet (500 mg total) by mouth 2 (two) times daily withmeals. ONDANSETRON (ZOFRAN-ODT) 4 MG TBDL Take 1 tablet (4 mg total) by mouth every 8 (eight) hours as needed (n/v). OXYCODONE-ACETAMINOPHEN (PERCOCET) 10-325 MG PER TABLET Take 1 tablet by mouth every 6 (six) hours as needed. Changed and/or Refilled Medications Modified Medication Previous Medication METOPROLOL SUCCINATE (TOPROL-XL) 50 MG 24 HR TABLET metoprolol succinate (TOPROL-XL) 50 MG 24 hr tablet Take 1 tablet (50 mg total) by mouth once daily. Take 1 tablet by mouth once daily Assessment & Plan 1. Tear of meniscus of right knee as current injury, unspecified meniscus, unspecified tear type, initial encounter 2. Essential hypertension 3. Prediabetes Problem List Items Addressed This Visit Cardiac/Vascular Essential hypertension -d/c hctz as she has been having LE cramping Begin aldactone Relevant Medications metoprolol succinate (TOPROL-XL) 50 MG 24 hr tablet spironolactone (ALDACTONE) 25 MG tablet Other Relevant Orders CBC auto differential Endocrine Prediabetes -continue to monitor She has stopped metformin Relevant Orders Comprehensive metabolic panel Lipid Panel Hemoglobin A1C Other Visit Diagnoses Tear of meniscus of right knee as current injury, unspecified meniscus, unspecified tear type, initial encounter - Primary -eval for meniscal tear Consult ortho pending rsults Relevant Orders X-Ray Knee 1 or 2 View Right MRI Knee Without Contrast Right Follow up in about 6 months (around 04/25/2020) for Follow up. Other Orders Placed This Visit: Orders Placed This Encounter Procedures ??? X-Ray Knee 1 or 2 View Right ??? MRI Knee Without Contrast Right ??? CBC auto differential ??? Comprehensive metabolic panel ??? Lipid Panel ??? Hemoglobin A1C documented in this encounter Plan of Treatment Not on filedocumented as of this encounter Goals Goal Patient Goal Associated Recent Patient-Stated? 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 documented as of this encounter Results MRI Knee Without Contrast Right (11/07/2019 5:10 PM CDT) Specimen Impressions Performed At [facility] Horizontal longitudinal tear lateral men iscus Tricompartmental grades 1-2 chondromalac ia Electronically signed by: Shar English Jr Date: 11/08/2019 Time: 09:15 Narrative Performed At EXAMINATION: MMODEL FLUENCY MRI KNEE WITHOUT CONTRAST RIGHT CLINICAL [...] grades 1-2 chondromalac ia Electronically signed by:Shar Brewster in Date:11/08/2019 Time:09:15 Performing Organization Address City/[facility] Code Phon e Number MMODEL FLUENCY MMODEL FLUENCY n/a Hemoglobin A1C (10/24/2019 3:40 PM CDT) Hemoglobin A1C 6.4 (H) 4.0 - 5.6 % [facility] Comment: [facility] ADA Screening Guidelines: [place] 5.7-6.4% ??Consistent with prediabetes >or=6.5% ??Consistent with diabetes High levels of hemoglobin interfere with the HbA 1C assay. Heterozygous hemoglobin variants (HbS, HgC, etc )do not significantly interfere with this assay. However, presence of multiple variants may affect accu racy. Estimated Avg 137 (H) 68 - 131 [facility] Glucose mg/dL [facility] Specimen Blood - Blood Performing Organization Address City/[facility]/ZIP Code Phon e Number [facility] [address] [place] [address] [place] Lipid Panel (10/24/2019 3:40 PM CDT) Cholesterol 198 120 - 199 [facility] Comment: mg/dL [facility] The National Cholesterol Education Program (NCEP) has set the [place] following guidelines (reference ranges) for Cholestero l: Optimal.....................<200 mg/dL Borderline High.............200-239 mg/dL High........................> or = 240 mg/dL Triglycerides 135 30 - 150 [facility] Comment: mg/dL [facility] The National Cholesterol Education Program ([facility]) has set the [place] following guidelines (reference values) for triglyceri madi: Normal......................<150 mg/dL Borderline High.............150-199 mg/dL High........................200-499 mg/dL HDL 49 40 - 75 [facility] Comment: mg/dL [facility] The National Cholesterol Education Program ([facility]) has set the [place] following guidelines (reference values) for HDL Choles terol: Low...............<40 mg/dL Optimal...........>60 mg/dL LDL Cholesterol 122.0 63.0 - 159.0 [facility] Comment: mg/dL [facility] The National Cholesterol Education Program ([facility]) has set the [place] following guidelines (reference values) for LDL Choles terol: Optimal.......................<130 mg/dL Borderline High...............130-159 mg/dL High..........................160-189 mg/dL Very High.....................>190 mg/dL HDL/Cholesterol Ratio 24.7 20.0 - 50.0 [facility] % [facility] Total Cholesterol/HDL 4.0 2.0 - 5.0 [facility] Ratio [facility] Non-HDL Cholesterol 149 mg/dL [facility] Comment: [facility] Risk category and Non-HDL cholesterol goals: [place] Coronary heart disease (CHD)or equivalent (10-year ris k of CHD >20%): Non-HDL cholesterol goal ? <130 mg/dL Two or more CHD risk factors and 10-year risk of CHD < = 20%: Non-HDL cholesterol goal ? <160 mg/dL 0 to 1 CHD risk factor: Non-HDL cholesterol goal ? <190 mg/dL Specimen Blood - Blood Performing Organization Address City/State/ZIP Code Phon e Number [facility] [address] [place] [address] [place] Comprehensive metabolic panel (10/24/2019 3:40 PM CDT) Sodium 140 136 - 145 [facility] mmol/L [facility] Potassium 4.0 3.5 - 5.1 [facility] mmol/L [facility] Chloride 105 95 - 110 [facility] mmol/L [facility] CO2 27 23 - 29 [facility] mmol/L [facility] Glucose 110 70 - 110 [facility] mg/dL [facility] BUN 12 6 - 20 mg/dL [facility] Creatinine 0.8 0.5 - 1.4 [facility] mg/dL [facility] Calcium 9.2 8.7 - 10.5 [facility] mg/dL [facility] Total Protein 7.7 6.0 - 8.4 [facility] g/dL [facility] Albumin 3.9 3.5 - 5.2 [facility] g/dL [facility] Total Bilirubin 0.4 0.1 - 1.0 [facility] Comment: mg/dL [facility] For infants and newborns, interpretation of results sh ould be based [place] on gestational age, weight and in agreement with clini stefania observations. Premature Infant recommended reference ranges: Up to 24 hours.............<8.0 mg/dL Up to 48 hours............<12.0 mg/dL 3-5 days..................<15.0 mg/dL 6-29 days.................<15.0 mg/dL Alkaline 72 55 - 135 U/L [facility] Phosphatase [facility] AST 19 10 - 40 U/L [facility] ALT 18 10 - 44 U/L [facility] Anion Gap 8 8 - 16 [facility] mmol/L [facility] eGFR if >60.0 >60 [facility] Lao mL/min/1.[address] eGFR if non >60.0 >60 [facility] Comment: mL/min/1.73 [facility] Calculation used to obtain the estimated glomerular fi ltr[address] rate (eGFR) is the CKD-EPI equation. Specimen Blood - Blood Performing Organization Address City/State/ZIP Code Phon e Number [facility] [address] [place], [place] [id number] [place] [address] CBC auto differential (10/24/2019 3:40 PM CDT) WBC 7.87 3.90 - 12.70 [facility] K/uL [facility] RBC 4.50 4.00 - 5.40 [facility] M/uL [facility] Hemoglobin 12.2 12.0 - 16.0 [facility] g/dL [facility] Hematocrit 40.3 37.0 - 48.5 [facility] % [facility] MCV 90 82 - 98 fL [facility] MCH 27.1 27.0 - 31.0 [facility] pg [facility] MCHC 30.3 (L) 32.0 - 36.0 [facility] g/dL [facility] RDW 13.6 11.5 - 14.5 [facility] Platelets 301 150 - 350 [facility] K/uL [facility] MPV 11.0 9.2 - 12.9 [facility] fL [facility] Immature 0.4 0.0 - 0.5 % [facility] Granulocytes [facility] Gran # (ANC) 3.9 1.8 - 7.7 [facility] Immature Grans (Abs) 0.03 0.00 - 0.04 [facility] Comment: [facility] Mild elevation in immature granulocytes is non specifi c and [place] can be seen in a variety of conditions including stres s response, acute inflammation, trauma and . Correlation with other laboratory and clinical findings is essential. Lymph # 3.1 1.0 - 4.8 [facility] Clay # 0.7 0.3 - 1.0 [facility] Eos # 0.2 0.0 - 0.5 [facility] Baso # 0.04 0.00 - 0.20 [facility] nRBC 0 0 /100 WBC [facility] Gran % 49.3 38.0 - 73.0 [facility] Lymph % 38.9 18.0 - 48.0 [facility] % [facility] Clay % 8.9 4.0 - 15.0 % [facility] Eosinophil % 2.0 0.0 - 8.0 % [facility] Basophil % 0.5 0.0 - 1.9 % [facility] Differential Method Automated [facility] Specimen Blood - Blood Performing Organization Address City/State/ZIP Code Phon e Number [facility] [address] [place], [place] [id number] [place] [address] X-Ray Knee 1 or 2 View Right [...] Date: 10/27/2019 Time: 08:30 Impressions Performed At MMODEL FLUENCY Status post right TKA without gross [...] unspecified meniscus, unspecified tear type, initial encounter - Primary Essential hypertension Prediabetes Other abnormal glucose documented in this encounter
--- OUTSIDE RECORDS SUMMARY | 2020-04-15 13:30 | XMS_ITS | Encounter Summary ---
:1975 Author Organization [facility] and It s Subsidiaries and Affiliates Address [address] [place] [address] Care Team Providers Name Role Phone GENTRY Braswell Unavailable Unavailable MD Romario Primary Care Provider gina Moralez II, MD, F. Unavailable Maggy Agustin MD Unavailable Napoleon Loyola MA Unavailable Unavailable [facility] Health Card Assembler [phone] Jim Biggs Hypertension Digital Medicine Clinician MD Romario Hypertension Digital Medicine Responsibl e Provider 1, Employee Plan - [facility] Hypertension Digital Medicine Co ntract Unavailable Encounter Details Date Type Department Care Team Description 03/28/2019 Lab Visit [facility] Theresa Doss MD [facility] [address] [place] [address] [place] [phone] [phone] Social History Tobacco Use Types Packs/Day Years [...] 1 to 4 times per year 10/08 judaism services? Do you belong to any clubs or No 10/30/2018 organizations such as islam groups, unions, fraBeta Cat Pharm[employer] or athletic groups, or school groups? How [...] encounter Progress Notes Theresa Doss MD - 03/28/2019 7:15 AM CSTHi Remedios, your results are consistent with prediabetes now but three months ago you were consistent with diabetes. I'd recommend some diabetes education to prevent this from occurring again, let me know if you would like a referral Theresa Doss MD documented in this encounter Plan of Treatment Not on filedocumented as of this encounter Goals Goal Patient Goal Associated Recent Patient-Stated? 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 documented in this encounter Results Hemoglobin A1c (03/28/2019 7:24 AM ELECTRICAL ENGINEERING DRAFTING OFFICER) Hemoglobin A1C 6.2 (H) 4.0 - 5.6 % [facility] Comment: [facility] Screening Guidelines: [place] 5.7-6.4% ??Consistent with prediabetes >or=6.5% ??Consistent with diabetes High levels of hemoglobin interfere with the HbA 1C assay. Heterozygous hemoglobin variants (HbS, HgC, etc )do not significantly interfere with this assay. However, presence of multiple variants may affect accu racy. Estimated Avg 131 68 - 131 [facility] Glucose mg/dL [facility] Specimen Blood - Blood Performing Organization Address City/State/ZIP Code Phon e Number [facility] [address] [place], [place] [id number] [place] [address] documented in this encounter Visit Diagnoses Diagnosis Prediabetes Other abnormal glucose documented in this encounter
--- OUTSIDE RECORDS SUMMARY | 2020-04-15 13:30 | XMS_ITS | Encounter Summary ---
:1975 Author Organization [facility] and s Subsidiaries and Affiliates Address [address] [place] [address] Care Team Providers Name Role Phone GENTRY Braswell Unavailable Unavailable MD Romario Primary Care Provider gina Moralez II, MD, F. Unavailable Maggy Agustin MD Unavailable Napoleon Loyola MA Unavailable Unavailable Reason for Visit Reason Comments Medication Problem recall Encounter Details Date Type Department Care Team Description 08/17/2019 Telephone [place] [facility] Theresa Doss MD Medication Problem Medicine [address] (recall) [address] [place] [address] [place] [phone] [phone] Storage And Backup Administrator: Nirmal Zheng Social History Tobacco Use Types [...] or relatives? How often do you attend roman catholic or 1 to 4 times per year 10/08 latter-day services? Do you belong to any clubs or No 10/30/2018 organizations such as roman catholic groups, unions, fraternal or athletic groups, or [...] / COVID-19? documented as of this encounter Miscellaneous Notes Telephone Encounter - Berta Wells MA - 08/18/2019 2:16 PM CDTSpoke with Kareen from pharmacy stating Metformin recall fax. She told me it's ok they will fill it for the patient tomorrow it was just a manufactured recall notice. But they have another metformin coming in. elephone Encounter - Theresa Doss MD - 08/18/2019 7:03 AM CDTCan we contact pharmacy to see if there are safe metformin alternatives or if we should change drug Theresa Doss MD elephone Encounter - Berta Wells MA - 08/17/2019 2:53 PM CDTFax received from pharmacy stating national drug recall for Metformin. Please send a new Rx for alternative. documented in this encounter Plan of Treatment Not on filedocumented as of this encounter Goals Goal Patient Goal Associated Recent Patient-Stated? Author Type Problems Progress Blood Pressure Blood 197/101 Yes Myochsner, < 130/80 Pressure (02/21/2020 System Messag e 10:15 AM AMALGAMATOR) Take at least Blood No Cutura, one [...]
--- OUTSIDE RECORDS SUMMARY | 2020-04-15 13:30 | XMS_ITS | Encounter Summary ---
:1975 Author Organization [facility] and It s Subsidiaries and Affiliates Address [address] [place] [address] Care Team Providers Name Role Phone GENTRY Braswell Unavailable Unavailable MD Romario Primary Care Provider gina Moralez II, MD, F. Unavailable Maggy Agustin MD Unavailable Napoleon Loyola MA Unavailable Unavailable [facility] Health Welder [employer] [phone] Jim Biggs Hypertension Digital Medicine Clinician MD Romario Hypertension Digital Medicine Responsibl e Provider 1, Employee Plan - [employer] Hypertension Digital Medicine Co ntract Unavailable Encounter Details Date Type Department Care Team Description 03/28/2019 Travel Social History Tobacco Use Types Packs/Day [...] or relatives? How often do you attend yazdanism or 1 to 4 times per year 10/08 mosque services? 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
--- OUTSIDE RECORDS SUMMARY | 2020-04-15 13:31 | XMS_ITS | Encounter Summary ---
:1975 Author Organization [facility] Subsidiaries and Affiliates Address [address] [place] [address] Care Team Providers Name Role Phone GENTRY Braswell Unavailable Unavailable MD Romario Primary Care Provider gina Moralez II, MD, F. Unavailable Maggy Agustin MD Unavailable Napoleon Loyola MA Unavailable Unavailable [facility] Back Shoe Operator [phone] Jim Biggs Hypertension Digital Medicine Clinician MD Romario Hypertension Digital Medicine Responsibl e Provider 1, Employee Plan - [facility] Hypertension Digital Medicine Co ntract Unavailable Reason for Visit Reason Comments Follow-up Encounter Details Date Type Department Care Team Description 01/26/2019 Office Visit Sima - ROLLER ENGRAVER - Ron Desir MD Post-operative [facility] [address] (Primary Dx) [address], [address] [place] [address] [place] [address] [place] [phone] Atv Mechanic: Alia Sauceda Social History Tobacco Use Types [...] Sign Reading Time Taken Comments Blood Pressure 122/68 01/26/2019 1:10 PM SONOGRAPHER Pulse - - Temperature - - Respiratory Rate - - Oxygen Saturation - - Inhaled Oxygen Concentration - - Weight 123.1 kg (271 lb 6.2 oz) 01/26/2019 1:10 PM SONOGRAPHER Height - - Body Mass Index 43.8 01/26/2019 9:17 AM SONOGRAPHER documented in this encounter Progress Notes Terra Rhoades MD - 01/26/2019 1:00 PM CST CC: Postoperative visit- drain removal Remedios Schofield is a 43 y.o. female presents for a f/u for drain removal. Pt s/p TLH/BS??on 12/31/18 at [facility] secondary to uterine fibroids and ovarian cyst. Her postoperative course was complicated by postop pelvic abscess visit s/p IR drainage with drain placement on 01/13/19. Here for drain removal. No output today. 5cc yesterday. Cultures from drainage- bacteroides. Currently finishing rx augmentin and flagyl. Denies fever, chills, vaginal bleeding. Flushing drain with 10cc of saline daily. Has appointment with primary director of annual giving at [facility] this afternoon. BP 122/68 Wt 123.1 kg (271 lb 6.2 oz) LMP 10/03/2018 BMI 43.80 kg/m?? ROS: GENERAL: No fever, chills, fatigability [...] ABDOMEN: abdomen is soft without significant tenderness INCISION in Right glut. Dressing removed along with drain. Pt tolerated well. Steri-strips placed over wound. 1. Post-operative state RTC in 2 weeks for pelvic exam Terra Rhoades MD, FACOG ROLLER ENGRAVER Pager: [phone] documented in this encounter Plan of Treatment Not on filedocumented as of this encounter Goals Goal Patient Goal Associated Recent Patient-Stated? Author Type Problems Progress Blood Pressure Blood 197/101 Yes Myochsner, < 130/80 Pressure (02/21/2020 System Messag e 10:15 AM SONOGRAPHER) Take at least Blood No Cutura, one BP reading Pressure Precious per week at various times of the day Maintain a low Diet No Cutura, sodium diet Precious Note: [place] Heart Association (AHA) guideli francisco recommend less [...] Post-operative state - Primary Other postprocedural status documented in this encounter
--- OUTSIDE RECORDS SUMMARY | 2020-04-15 13:31 | XMS_ITS | Encounter Summary ---
:1975 Author Organization [facility] and It s Subsidiaries and Affiliates Address [address] [place] [address] Care Team Providers Name Role Phone GENTRY Braswell Unavailable Unavailable MD Romario Primary Care Provider gina Moralez II, MD, F. Unavailable Maggy Agustin MD Unavailable Napoleon Loyola MA Unavailable Unavailable [facility] Front Desk Specialist [phone] Jim Biggs Hypertension Digital Medicine Clinician MD Romario Hypertension Digital Medicine Responsibl e Provider 1, Employee Plan - [facility] Hypertension Digital Medicine Co ntract Unavailable Encounter Details Date Type Department Care Team Description 02/18/2019 Travel Social History Tobacco Use Types Packs/Day [...] or relatives? How often do you attend evangelical or 1 to 4 times per year 10/08 yazdanism services? Do you belong to any clubs or No 10/30/2018 organizations such as evangelical groups, unions, fraternal or athletic groups, or [...] Pressure (02/21/2020 System Messag e 10:15 AM FOUNDER AND CHIEF TECHNICAL OFFICER) Take at least Blood No Cutura, one BP reading Pressure Precious per week at various times of the day Maintain a low Diet No Katie, sodium diet Precious Note: [place] Heart Association (AHA) guideli francisco recommend less [...]
--- OUTSIDE RECORDS SUMMARY | 2020-04-15 13:31 | XMS_ITS | Encounter Summary ---
:1975 Author Organization [facility] and It s Subsidiaries and Affiliates Address [address] [place] [address] Care Team Providers Name Role Phone Que Nazario MD Primary Care Provider GENTRY Braswell Unavailable Unavailable Encounter Details Date Type Department Care Team Description 11/01/2018 [facility] [address] [facility] [address] [place] [phone] [place], [place] [id number] Social History Tobacco Use Types Packs/Day Years Used Date Never Smoker Smokeless Tobacco: Never Used Alcohol Use Standard Drinks/Week Comments Yes 0 (1 standard drink = 0.6 oz pure alcoho l) social Alcohol Habits Answer Date Recorded How often [...] Pressure (02/21/2020 System Messag e 10:15 AM SHEET ROCK LAYER) Take at least Blood No Cutura, one BP reading Pressure Precious per week at various times of the day Maintain a low Diet No Cutura, sodium diet Precious Note: [place] Heart Association (AHA) guideli francisco recommend less [...]
--- OUTSIDE RECORDS SUMMARY | 2020-04-15 13:31 | XMS_ITS | Encounter Summary ---
:1975 Author Organization [facility] and It s Subsidiaries and Affiliates Address [address] [place] [address] Care Team Providers Name Role Phone GENTRY Braswell Unavailable Unavailable MD Romario Primary Care Provider gina Moralez II, MD, F. Unavailable Maggy Agustin MD Unavailable Reason for Visit Reason Comments Hospital Follow Up Establish Care Encounter Details Date Type Department Care Team Description 11/04/2018 Office Visit [place] - Family Theresa Doss MD Essential hypertension (Primary Dx); Medicine [address] Chronic atrial fibrillation; [address] [place] [address] Hyperglycemia; [place] [phone] Prediabetes [id number] [phone] Illuminator: Nirmal Zheng Social History Tobacco Use Types [...] Sign Reading Time Taken Comments Blood Pressure 136/84 11/04/2018 10:27 AM CDT Pulse 69 11/04/2018 10:27 AM CDT Temperature 36.8 ??C (98.3 ??F) 11/04/2018 10:27 AM CDT Respiratory Rate - - Oxygen Saturation 97% 11/04/2018 10:27 AM CDT Inhaled Oxygen Concentration - - Weight 121.6 kg (267 lb 15.5 oz) 11/04/2018 10:27 AM CDT Height 167.6 cm (5' 6) 11/04/2018 10:27 AM CDT Body Mass Index 43.25 11/04/2018 10:27 AM CDT documented in this encounter Progress Notes Theresa Doss MD - 11/04/2018 10:00 AM CDT Chief Complaint Patient presents with ??? Hospital Follow Up ??? Establish Care HPI Remedios Schofield is a 43 y.o. female with multiple medical diagnoses as listed in the medical historyand problem list that presents for establishment of care. Hx of afib, HTN and fibroids. Recently seen 10/30 in ED for abdominal pain, fibroids, and cyst Fibroids- she is following up with Dr. Rocha and is now taking provera, they are planning a hysterectomy as she has an ovarian cyst HTN- she was also seen for CP and elevated BP. Has been compliant with flecainide and toprol but since her visit started taking her 's 25mg hctz. Her BP has been controlled since but she does not have her own medication PAST MEDICAL HISTORY: Past Medical History: Diagnosis Date ??? A-fib ??? Atrial fibrillation 1982 ??? Atrial fibrillation ??? Bronchitis ??? Fibroid, uterine ??? Hypertension PAST SURGICAL HISTORY: Past Surgical History: Procedure Laterality Date ??? MYOMECTOMY 2015 fibroids SOCIAL HISTORY: Social History Socioeconomic History ??? Marital status: Spouse name: Not on file ??? Number of children: Not on file ??? Years of education: Not on file ??? Highest education level: Not on file Occupational History ??? Not on file Social Needs ??? Financial resource strain: Not very hard ??? Food insecurity: Worry: Never true Inability: Never true ??? Transportation needs: Medical: No Non-medical: No Tobacco Use ??? Smoking status: Never Smoker ??? Smokeless tobacco: Never Used Substance and Sexual Activity ??? Alcohol use: Yes Frequency: 2-3 times a week Drinks per session: 1 or 2 Binge frequency: Never Comment: weekends ??? Drug use: No ??? Sexual activity: Yes Partners: Male control/protection: None Lifestyle ??? Physical activity: Days per week: 3 days Minutes per session: 60 min ??? Stress: To some extent Relationships ??? Social connections: Talks on phone: More than three times a week Gets together: Twice a week Attends confucianist service: 1 to 4 times per year Active member of club or organization: No Attends meetings of clubs or organizations: Never Relationship status: Other Topics Concern ??? Not on file Social History Narrative Merged History Encounter FAMILY HISTORY: Family History Problem Relation Age [...] Neg Hx ??? Ovarian cancer Neg Hx ALLERGIES AND MEDICATIONS: updated and reviewed. Review of patient's allergies indicates: No Known Allergies Current Outpatient Medications Medication Sig Dispense Refill ??? aspirin (ECOTRIN) 81 MG EC tablet Take 81 mg by mouth once daily. ??? flecainide (TAMBOCOR) 150 MG Tab Take 1 tablet (150 mg total) by mouth continuous prn. Take 2 tablets for atrial fibrillation 20 tablet 11 ??? HYDROcodone-acetaminophen (NORCO) 5-325 mg per tablet Take 1 tablet by mouth every 4 (four) hours as needed for Pain. 12 tablet 0 ??? medroxyPROGESTERone (PROVERA) 10 MG tablet Bid ??? metFORMIN (GLUCOPHAGE-XR) 500 MG 24 hr tablet Take 1 tablet (500 mg total) by mouth before dinner. 90 tablet 3 ??? metoprolol succinate (TOPROL-XL) 50 MG 24 hr tablet Take 1 tablet (50 mg total) by mouth once daily. 90 tablet 3 ??? naproxen (NAPROSYN) 500 MG tablet Take 1 tablet (500 mg total) by mouth 2 (two) times daily withmeals. 14 tablet 0 ??? hydroCHLOROthiazide (HYDRODIURIL) 12.5 MG Tab Take 1 tablet (12.5 mg total) by mouth once daily.30 tablet 11 No current facility-administered medications for this visit. ROS Review of Systems Constitutional: Negative for chills, diaphoresis, fatigue, fever and unexpected weight change. HENT: Negative for rhinorrhea, sinus pressure, sore throat and tinnitus. Eyes: Negative for photophobia and visual disturbance. Respiratory: Negative for cough, shortness of breath and wheezing. Cardiovascular: Negative for chest pain and palpitations. Gastrointestinal: Negative for abdominal pain, blood in stool, constipation, diarrhea, nausea and vomiting. Genitourinary: Negative for dysuria, flank pain, frequency and vaginal discharge. Musculoskeletal: Negative for arthralgias, joint swelling and neck pain. Skin: Negative for rash. Neurological: Positive for headaches. Negative for speech difficulty, weakness and light-headedness. Psychiatric/Behavioral: Negative for behavioral problems and dysphoric mood. Physical Exam Vitals: 11/04/18 1027 BP: 136/84 BP Location: Right arm Patient Position: Sitting BP Method: Large (Manual) Pulse: 69 Temp: 98.3 ??F (36.8 ??C) TempSrc: Oral SpO2: 97% Weight: 121.6 kg (267 lb 15.5 oz) Height: 5' 6 (1.676 m) Body mass index is 43.25 kg/m??. Weight: 121.6 kg (267 lb 15.5 oz) Height: 5' 6 (167.6 cm) Physical Exam Constitutional: She is oriented to person, place, and time. She appears well- developed and well-nourished. No distress. HENT: Head: Normocephalic and atraumatic. Eyes: EOM are normal. Neck: Neck supple. Cardiovascular: Normal rate and regular rhythm. Exam reveals no gallop and no friction rub. No murmur heard. BLE ankle swelling Pulmonary/Chest: Effort normal and breath sounds normal. No respiratory distress. She has no wheezes. She has no rales. Lymphadenopathy: She has no cervical adenopathy. Neurological: She is alert and oriented to person, place, and time. Skin: Skin is warm and dry. No rash noted. Psychiatric: She has a normal mood and affect. Her behavior is normal. Nursing note and vitals reviewed. Health Maintenance Date Due Completion Date Mammogram 05/22/2016 05/22/2014 Influenza Vaccine (1) 11/07/2018 04/01/2018 Pap Smear with HPV Cotest 11/03/2021 11/03/2018 (Done) Override on 11/03/2018: Done ([place]) Lipid Panel 02/04/2022 02/04/2017 TETANUS VACCINE 12/15/2027 12/14/2017 Health maintenance reviewed and addressed as ordered ASSESSMENT 1. Essential hypertension 2. Chronic atrial fibrillation 3. Hyperglycemia 4. Prediabetes PLAN: Problem List Items Addressed This Visit Cardiac/Vascular A-fib -continue current regimen with BB and flecainide Overview [id number] score 3 with HTN + DM II + sex Down to 1 without HTN + DM II Essential hypertension - Primary -BP currently controlled, will add hctz but at lower dose to avoid hypokalemia Relevant Medications hydroCHLOROthiazide (HYDRODIURIL) 12.5 MG Tab Other Relevant Orders Basic metabolic panel Endocrine RESOLVED: Hyperglycemia Prediabetes -continue metformin Theresa Doss MD 11/04/2018 10:51 AM Follow up in about 3 months (around 02/04/2019) for Follow up. documented in this encounter Plan of Treatment Not on filedocumented as of this encounter Goals Goal Patient Goal Associated Recent Patient-Stated? Author Type Problems Progress Blood Pressure Blood 197/101 Yes Myochsner, < 130/80 Pressure (02/21/2020 System Messag e 10:15 AM CHILD WELFARE DIRECTOR) Take at least Blood No Cutura, one BP reading Pressure Precious per week at various times of the day Maintain a low Diet No Cutura, sodium diet Precious Note: [place] Heart Association (AHA) guideli francisco recommend less [...] Visit Diagnoses Diagnosis Essential hypertension - Primary Chronic atrial fibrillation Atrial fibrillation Hyperglycemia Other abnormal glucose Prediabetes Other abnormal glucose documented in this encounter
--- OUTSIDE RECORDS SUMMARY | 2020-04-15 13:31 | XMS_ITS | Encounter Summary ---
:1975 Author Organization [facility] and [facility] Subsidiaries and Affiliates Address [address] [place] [address] Care Team Providers Name Role Phone Que Nazario MD Primary Care Provider GENTRY Braswell Unavailable Unavailable Encounter Details Date Type Department Care Team Description 10/30/2018 Travel Social History Tobacco Use Types Packs/Day [...] or relatives? How often do you attend anabaptism or 1 to 4 times per year 10/08 muslim services? Do you belong to any clubs or No 10/30/2018 organizations such as anabaptism groups, unions, fraternal or athletic groups, or [...] Pressure (02/21/2020 System Messag e 10:15 AM AGRICULTURE INSTRUCTOR) Take at least Blood No Cutura, one BP reading Pressure Precious per week at various times of the day Maintain a low Diet No Cutura, sodium diet Precious Note: [place] Heart Association (AHA) guideli francisco recommend less [...]
--- OUTSIDE RECORDS SUMMARY | 2020-04-15 13:31 | XMS_ITS | Encounter Summary ---
:1975 Author Organization [facility] and It s Subsidiaries and Affiliates Address [address] [place] [address] Care Team Providers Name Role Phone GENTRY Braswell Unavailable Unavailable MD Romario Primary Care Provider gina Moralez II, MD, F. Unavailable Maggy Agustin MD Unavailable Napoleon Loyola MA Unavailable Unavailable [facility] Dexigraph Operator [phone] Jim Biggs Hypertension Digital Medicine Clinician MD Romario Hypertension Digital Medicine Responsibl e Provider 1, Employee Plan - [facility] Hypertension Digital Medicine Co ntract Unavailable Reason for Visit Reason Comments Hypertension Encounter Details Date Type Department Care Team Description 01/26/2019 Office Visit [place] - Family Theresa Doss [facility] hypertension (Primary Dx); Medicine Postoperative infection, unspecified typ e, initial encounter; [address] Atrial fibrillation, unspecified type; [place] [address] Prediabetes [id number] Regional Agronomist: (Fax) December Reid Zheng Social History Tobacco Use Types Packs/Day [...] or relatives? How often do you attend bahai or 1 to 4 times per year 10/08 scientology services? Do you belong to any clubs or No 10/30/2018 organizations such as bahai groups, unions, fraternal or athletic groups, or [...] Sign Reading Time Taken Comments Blood Pressure 136/82 01/26/2019 9:17 AM BRIDGE OPERATOR SLIP Pulse 89 01/26/2019 9:17 AM BRIDGE OPERATOR SLIP Temperature 36.9 ??C (98.4 ??F) 01/26/2019 9:17 AM BRIDGE OPERATOR SLIP Respiratory Rate - - Oxygen Saturation 98% 01/26/2019 9:17 AM BRIDGE OPERATOR SLIP Inhaled Oxygen Concentration - - Weight 122.1 kg (269 lb 4.7 oz) 01/26/2019 9:17 AM BRIDGE OPERATOR SLIP Height 167.6 cm (5' 6) 01/26/2019 9:17 AM BRIDGE OPERATOR SLIP Body Mass Index 43.46 01/26/2019 9:17 AM BRIDGE OPERATOR SLIP documented in this encounter Progress Notes Theresa Doss MD - 01/26/2019 9:20 AM CST Chief Complaint Patient presents with ??? Hypertension HPI Remedios Schofield is a 43 y.o. female with multiple medical diagnoses as listed in the medical historyand problem list that presents for follow-up for her HTN, she is s/p partial hysterectomy 12/31 complicated by pelvic abscess She is recovering from a pelvic abscess and sepsis post op from her hysterectomy. She currently had a drain placed and it is planning to be removed today. She has had a decrease in pain but has had fatigue and decrease appetite. We discussed that her BG was elevated, she has been eating more broth and vegetables. PAST MEDICAL HISTORY: Past Medical History: Diagnosis Date ??? A-fib ??? Atrial fibrillation 1982 ??? Atrial fibrillation ??? Bronchitis ??? Fibroid, uterine ??? Hypertension PAST SURGICAL HISTORY: Past Surgical History: Procedure Laterality Date ??? HYSTERECTOMY ??? MYOMECTOMY 2015 fibroids SOCIAL HISTORY: Social [...] week Gets together: Twice a week Attends scientology service: 1 to 4 times per year [...] Outpatient Medications Medication Sig Dispense Refill ??? amoxicillin-clavulanate 875-125mg (AUGMENTIN) 875-125 mg per tablet Take 1 tablet by mouth every12 (twelve) hours. for 7 days 14 tablet 0 ??? aspirin (ECOTRIN) 81 MG EC tablet Take 81 mg by mouth. ??? flecainide (TAMBOCOR) 150 MG Tab Take 1 tablet (150 mg total) by mouth continuous prn. Take 2 tablets for atrial fibrillation (Patient not taking: Reported on 01/26/2019) 20 tablet 11 ??? hydroCHLOROthiazide (HYDRODIURIL) 12.5 MG Tab Take 1 tablet (12.5 mg total) by mouth once daily.30 tablet 3 ??? metFORMIN (GLUCOPHAGE-XR) 500 MG 24 hr tablet Take 1 tablet (500 mg total) by mouth before dinner. 30 tablet 3 ??? metoprolol succinate (TOPROL-XL) 50 MG 24 hr tablet Take 1 tablet (50 mg total) by mouth once daily. 30 tablet 3 ??? metoprolol succinate (TOPROL-XL) 50 MG 24 hr tablet Take 1 tablet (50 mg total) by mouth once daily. 90 tablet 3 ??? metroNIDAZOLE (FLAGYL) 500 MG tablet Take 1 tablet (500 mg total) by mouth every 12 (twelve) hours. for 7 days (Patient not taking: Reported on 01/26/2019) 14 tablet 0 ??? naproxen (NAPROSYN) 500 MG tablet Take 1 tablet (500 mg total) by mouth 2 (two) times daily withmeals. (Patient not taking: Reported on 01/19/2019) 14 tablet 0 ??? oxyCODONE-acetaminophen (PERCOCET) 10-325 mg per tablet Take 1 tablet by mouth every 6 (six) hours as needed. (Patient not taking: Reported on 01/26/2019) 20 tablet 0 No current facility-administered medications for this visit. ROS Review of Systems Constitutional: Positive for fatigue. Negative for chills, diaphoresis, fever and unexpected weight change. HENT: Negative [...] neck pain. Skin: Negative for rash. Neurological: Negative for speech difficulty, weakness, light-headedness and headaches. Psychiatric/Behavioral: Negative for behavioral problems and dysphoric mood. Physical Exam Vitals: 01/26/19 0917 BP: 136/82 BP Location: Left arm Patient Position: Sitting BP Method: Large (Manual) Pulse: 89 Temp: 98.4 ??F (36.9 ??C) TempSrc: Oral SpO2: 98% Weight: 122.1 kg (269 lb 4.7 oz) Height: 5' 6 (1.676 m) Body mass index is 43.46 kg/m??. Weight: 122.1 kg (269 lb 4.7 oz) Height: 5' 6 (167.6 cm) Physical Exam Constitutional: She is oriented to person, place, and time. She appears well- developed and well-nourished. Eyes: EOM are normal. Abdominal: Drain is present with minimal amt of fluid Neurological: She is alert and oriented to person, place, and time. Skin: Skin is warm and dry. No rash noted. No erythema. Psychiatric: She has a normal mood and affect. Her behavior is normal. Nursing note and vitals reviewed. Health Maintenance Date Due Completion Date Mammogram 04/06/2020 04/06/2018 Lipid Panel 02/04/2022 02/04/2017 Pap Smear with HPV Cotest 11/04/2023 11/03/2018 TETANUS VACCINE 12/15/2027 12/14/2017 Health maintenance reviewed and addressed as ordered ASSESSMENT 1. Essential hypertension 2. Postoperative infection, unspecified type, initial encounter 3. Atrial fibrillation, unspecified type 4. Prediabetes PLAN: Problem List Items Addressed This Visit Cardiac/Vascular A-fib -rate controlled on current regimen Overview [id number] score 3 with HTN + DM II + sex Down to 1 without HTN + DM II Essential hypertension - Primary -continue current regimen, controlled will monitor as she resumes her normal diet ID Postoperative infection -pending drain removal today, on ABX, may have caused some hyperglycemia Endocrine Prediabetes -will check A1C in 2 mos, f/u after lab draw pending results Relevant Orders Hemoglobin A1c Theresa Doss MD 01/26/2019 9:45 AM Follow up for blood pressure check. Answers for HPI/ROS submitted by the patient on 01/21/2019 Hypertension Chronicity: chronic Onset: more than 1 year ago Progression since onset: gradually improving Condition status: controlled anxiety: No blurred vision: No malaise/fatigue: No orthopnea: No peripheral edema: No PND: No sweats: No Agents associated with hypertension: no associated agents CAD risks: family history, obesity Compliance problems: no compliance problems Past treatments: beta blockers, diuretics Improvement on treatment: mild documented in this encounter Plan of Treatment Not on filedocumented as of this encounter Goals Goal Patient Goal Associated Recent Patient-Stated? Author Type Problems Progress Blood Pressure Blood 197/101 Yes Myochsner, < 130/80 Pressure (02/21/2020 System Messag e 10:15 AM BRIDGE OPERATOR SLIP) Take at least Blood No Cutura, one BP reading Pressure Precious per week at various times of the day Maintain a low Diet No Cutura, sodium diet Precious Note: [place] Heart Association (AHA) guideli francisco recommend less [...] week. documented as of this encounter Results Hemoglobin A1c (03/28/2019 7:24 AM BRIDGE OPERATOR SLIP) Hemoglobin A1C 6.2 (H) 4.0 - 5.6 % [facility] Comment: [facility] ADA Screening Guidelines: [place] 5.7-6.4% ??Consistent with prediabetes >or=6.5% ??Consistent with diabetes High levels of hemoglobin interfere with the HbA 1C assay. Heterozygous hemoglobin variants (HbS, HgC, etc )do not significantly interfere with this assay. However, presence of multiple variants may affect accu racy. Estimated Avg 131 68 - 131 [facility] Glucose mg/dL [facility] Specimen Blood - Blood Performing Organization Address City/State/ZIP Code Phon e Number [facility] [address] [place] [address] [place] documented in this encounter Visit Diagnoses Diagnosis Essential hypertension - Primary Postoperative infection, unspecified typ e, initial encounter Atrial fibrillation, unspecified type Prediabetes Other abnormal glucose documented in this encounter
--- OUTSIDE RECORDS SUMMARY | 2020-04-15 13:31 | XMS_ITS | Encounter Summary ---
:1975 Author Organization [facility] and Localisto Subsidiaries and Affiliates Address [address] [place] [address] Care Team Providers Name Role Phone GENTRY Braswell Unavailable Unavailable MD Romario Primary Care Provider gina Moralez II, MD, F. Unavailable Maggy Agustin MD Unavailable Napoleon Loyola MA Unavailable Unavailable [employer] Digital Medicine Health Director Mba [phone] Jim Biggs Hypertension Digital Medicine Clinician MD Romario Hypertension Digital Medicine Responsibl e Provider 1, Employee Plan - [facility] Hypertension Digital Medicine Co ntract Unavailable Reason for Visit Reason Comments Post-op Evaluation Encounter Details Date Type Department Care Team Description 02/18/2019 Office Visit Sima - LAV CREWMAN - Ron Desir MD Post-operative state [place] [address] (Primary Dx) [address], [address] [place] [address] [place] [address] [place] [phone] Ethanol Quality Leader: Alia Sauceda Social History Tobacco Use Types [...] 1 to 4 times per year 10/08 anabaptist services? Do you belong to any clubs [...] Sign Reading Time Taken Comments Blood Pressure 118/74 02/18/2019 10:01 AM NATIONAL PARK TOUR GUIDE Pulse - - Temperature - - Respiratory Rate - - Oxygen Saturation - - Inhaled Oxygen Concentration - - Weight 125.7 kg (277 lb 1.9 oz) 02/18/2019 10:01 AM NATIONAL PARK TOUR GUIDE Height 167.6 cm (5' 6) 02/18/2019 10:01 AM NATIONAL PARK TOUR GUIDE Body Mass Index 44.73 02/18/2019 10:01 AM NATIONAL PARK TOUR GUIDE documented in this encounter Progress Notes Terra Rhoades MD - 02/18/2019 10:00 AM CST CC: Postoperative visit Remedios Schofield is a 43 y.o. female presents for a f/u for drain removal. Pt s/p TLH/BS??on 12/31/18 at [facility] secondary to uterine fibroids and ovarian cyst. Her postoperative course was complicated by postop pelvic abscess visit s/p IR drainage with drain placement on 01/13/19.. Drain removed in clinic on 01/26/19. Reported 1 week of vaginal discharge after drain removal. LLQ pain started last Thursday then resolved with aleeve. Denies blood stool, constipation, urination. Denies fever, chills, vaginal bleeding. Flushing drain with 10cc of saline daily. BP 118/74 Ht 5' 6 (1.676 m) Wt 125.7 kg (277 lb 1.9 oz) LMP 10/03/2018 BMI 44.73 kg/m?? ROS: GENERAL: No fever, chills, fatigability [...] abdomen is soft without significant tenderness INCISION - s/p drain placement Vagina- cuff visualized with suture still present, cuff intact, non tender. 1. Post-operative state RTC in 4 weeks for cuff check prior to clearing to return to work (anticipating full 12 week work restriction s/p initial RA-TLH) Terra Rhoades MD, FACOG LAV CREWMAN Pager: [phone] documented in this encounter Plan of Treatment Not on filedocumented as of this encounter Goals Goal Patient Goal Associated Recent Patient-Stated? Author Type Problems Progress Blood Pressure Blood 197/101 Yes Myochsner, < 130/80 Pressure (02/21/2020 System Messag e 10:15 AM NATIONAL PARK TOUR GUIDE) Take at least Blood No Cutura, one BP reading Pressure Precious per week at various times of the day Maintain a low Diet No Cutura, sodium diet Precious Note: [place] [employer] Association (AHA) guideli francisco recommend less [...]
--- OUTSIDE RECORDS SUMMARY | 2020-04-15 13:31 | XMS_ITS | Encounter Summary ---
:1975 Author Organization [facility] and It s Subsidiaries and Affiliates Address [address] [place] [address] Care Team Providers Name Role Phone GENTRY Braswell Unavailable Unavailable MD Romario Primary Care Provider gina Moralez II, MD, F. Unavailable Maggy Agustin MD Unavailable Napoleon Loyola MA Unavailable Unavailable [employer] Digital Medicine Health Analyst Market Intelligence [phone] Jim Biggs Hypertension Digital Medicine Clinician MD Romario Hypertension Digital Medicine Responsibl e Provider 1, Employee Plan - [facility] Hypertension Digital Medicine Co ntract Unavailable Encounter Details Date Type Department Care Team Description 01/14/2019 Pharmacy Visit Sima - Pharmacy - [facility] [address], [address] [place] [phone] Social History Tobacco Use Types Packs/Day Years [...] 1 to 4 times per year 10/08 jainism services? 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
--- OUTSIDE RECORDS SUMMARY | 2020-04-15 13:31 | XMS_ITS | Encounter Summary ---
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
--- OUTSIDE RECORDS SUMMARY | 2020-04-15 13:31 | XMS_ITS | Encounter Summary ---
:1975 Author Organization [facility] and s Subsidiaries and Affiliates Address [address] [place] [address] Care Team Providers Name Role Phone GENTRY Braswell Unavailable Unavailable MD Romario Primary Care Provider gina Moralez II, MD, F. 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 No answer. Sent message in [employer] as well Terra Rhoades MD, FACOG ARMORED MACHINE OPERATOR Pager: [phone] documented in this encounter Plan of Treatment Not on filedocumented as of this encounter Goals Goal Patient Goal Associated Recent Patient-Stated? 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
--- OUTSIDE RECORDS SUMMARY | 2020-04-15 13:31 | XMS_ITS | Encounter Summary ---
:1975 Author Organization [facility] and [facility] Subsidiaries and Affiliates Address [address] [place] [address] Care Team Providers Name Role Phone Que Nazario MD Primary Care Provider GENTRY Braswell Unavailable Unavailable Reason for Visit Reason Comments Chest Pain 43y F to ED with c/o left si ded chest pressure x2 days, diffuse lower abdominal pain x2 weeks, and mild frontal headache Abdominal Pain Encounter Details Date Type Department Care Team Description 10/30/2018 Emergency [facility] Bertha Villafana MD [address] [place] [address] Abdominal pain, unspecified abdominal lo cation (Primary Dx); [facility] Cordero MD [address] [place] [address] Chest pain; [address] ve Fibroid; [place] [phone] Cyst of ovary, unspecified l aterality [phone] Social History Tobacco Use Types Packs/Day Years [...] or relatives? How often do you attend voodoo or 1 to 4 times per year 10/08 gnosticist services? Do you belong to any clubs or No 10/30/2018 organizations such as voodoo groups, unions, [employer] or athletic groups, or school groups? [...] Sign Reading Time Taken Comments Blood Pressure 174/86 10/30/2018 5:00 AM CDT Pulse 72 10/30/2018 4:03 AM CDT Temperature 36.6 ??C (97.8 ??F) 10/30/2018 4:03 AM CDT Respiratory Rate 18 10/30/2018 5:00 AM CDT Oxygen Saturation 100% 10/30/2018 4:03 AM CDT Inhaled Oxygen Concentration - - Weight 118.8 kg (262 lb) 10/30/2018 12:44 AM CDT Height 167.6 cm (5' 6) 10/30/2018 12:44 AM CDT Body Mass Index 42.29 10/30/2018 12:44 AM CDT documented in this encounter Discharge Instructions AttachmentsThe following attachments cannot be sent through Care Everywhere. Abdominal Pain, Adult (Tongan)Ovarian Cyst (Tongan)Acetaminophen; Hydrocodone tablets or capsules (Tongan)documented in this encounter Medications at Time of Discharge Medication Sig Dispensed Refills Start Date End Date albuterol 90 Inhale 2 puffs into the 1 Inhaler 0 04/29/2017 11/04/2018 mcg/actuation lungs every 6 (six) inhalerIndications: hours as needed for Bronchitis, Wheezing Wheezing or Shortness of Breath. Rescue aspirin (ECOTRIN) 81 Take 81 mg by mouth 0 01/11/2019 MG EC tablet once daily. flecainide (TAMBOCOR) Take 1 tablet (150 mg 20 tablet 11 01/201908/11/2019 150 MG Tab total) by mouth continuous prn. Take 2 tablets for atrial fibrillation HYDROcodone-acetaminop Take 1 tablet by mouth 12 tablet 0 0 10/30/2018 01/14/2019 hen (NORCO) 5-325 mg every 4 (four) hours as per tablet needed for Pain. inhalation spacing Use as directed for 1 Device 0 04/29/19 18 11/04/2018 deviceIndications: inhalation. Bronchitis, Wheezing metFORMIN Take 1 tablet (500 mg 90 tablet 3 03/28/2018 (GLUCOPHAGE-XR) 500 MG total) by mouth before 24 hr tablet dinner. metFORMIN Take 500 mg by mouth. 0 03/28/201807/2018 (GLUCOPHAGE-XR) 500 MG 24 hr tablet metoprolol succinate Take 1 tablet (50 mg 90 tablet 3 04/1901/19/2019 (TOPROL-XL) 50 MG 24 total) by mouth once hr tablet daily. metoprolol succinate Take 50 mg by mouth. 0 04/1901/11/2019 (TOPROL-XL) 50 MG 24 hr tablet naproxen (NAPROSYN) Take 1 tablet (500 mg 14 tablet 0 10/3001/06/2020 500 MG tablet total) by mouth 2 (two) times daily with meals. documented as of this encounter ED Notes Thelma Butler RN - 10/30/2018 5:01 AM CDTBP remains elevated at time of discharge, pt asymptomatic at this time, denies CP or headache. Dr. De Anda updated, no new orders. Pt okay to be discharged at this time per Dr. De Anda. Pt instructed to take all BP medications as prescribed, verbalized understanding. Thelma Khalil RN - 10/30/2018 4:45 AM CDTPt reports pain now 4/10 and tolerable. Thelma Khalil RN - 10/30/2018 4:05 AM CDTAfter ambulating, pt reports lower abdominal pain now 9/10, heat packs provided for comfort. Dr. Lauri trejo notified, new verbal orders noted. Kim Gomes RN - 10/30/2018 3:56 AM CDTBed: EXAM 07 Expected date: Expected time: Means of arrival: Comments: Thelma Dos Santos RN - 10/30/2018 3:30 AM CDTPt reports abdominal pain 4/10 after morphine administration. Will continue to monitor. Thelma Khalil RN - 10/30/2018 2:55 AM CDTPt reports total resolution of chest pain at this time, however, lower abdominal pain remains 9/10. Pt provided with heat packs for abdominal pain. Dr. De Anda updated on pt status. New verbal orders noted. Thelma Khalil RN - 10/30/2018 1:01 AM CDTPhysician at bedside. Thelma Khalil RN - 10/30/2018 12:58 AM CDT43y F c/o left sided chest pressure x2 days, diffuse lower abdominal pain x2 weeks, and mild frontalheadache, nausea starting tonight. Pt reports all symptoms worsened tonight while working in [facility]. APPEARANCE: Alert, oriented, no acute distress noted CARDIAC: Normal sinus rhythm noted on CR monitor, HTN noted, c/o left sided chest pressure. +S1S2, apical pulse regular PERIPHERAL VASCULAR: peripheral pulses +2 and present x4 extremities. Cap refill <3 seconds.. No edema or discoloration. Warm to touch. RESPIRATORY:Normal rate and effort, breath sounds clear bilaterally throughout chest. Respirations are equal and unlabored no obvious signs of distress. Denies SOB GASTRO: soft, bowel sounds normal, no abdominal distention. Tender to palpation over entire lower abdomen. +nausea G/U: no problems urinating reported MUSC: Full ROM x4 extremities. No obvious deformity. SKIN: Skin is warm and dry, normal skin turgor, mucous membranes moist. NEURO: GCS 15, motor strength WNL x4 extremities. +Frontal headache MENTAL STATUS: AAOx3, calm, cooperative, behavior appropriate to situation EYE: PERRLA. Bilateral pupil equal, reaction brisk, normal size. ENT: trachea midline, no problems identified Bertha Wyatt MD - 10/30/2018 12:56 AM CDT Encounter Date: 10/30/2018 SCRIBE #1 NOTE: Debbi Mena am scribing for, and in the presence of, Dr. Villafana. I have scribed the entire note. History Chief Complaint Patient presents with ??? Chest Pain 43y F to ED with c/o left sided chest pressure x2 days, diffuse lower abdominal pain x2 weeks, andmild frontal headache ??? Abdominal Pain Remedios Schofield is a 43 y.o. female who has a past medical history of A-fib, Atrial fibrillation (1982), Atrial fibrillation, Bronchitis, Fibroid, uterine, and Hypertension. The patient presents to the ED due to lower abdominal pain. Patient reports symptoms started 2 weeks ago, but worsened tonight. The pain is described as burning and it feels like someone punched her. She has had nausea, but no fever, chills, or constipation. Her stool has been a little bit softer and slightly yellow. The patient has a history of fibroids, but her current pain does not feel like a fibroid. The history is provided by the patient. Review of patient's allergies indicates: No Known Allergies Past Medical History: Diagnosis Date ??? A-fib ??? Atrial fibrillation 1982 ??? Atrial fibrillation ??? Bronchitis ??? Fibroid, uterine ??? Hypertension Past Surgical History: Procedure Laterality Date ??? ABDOMINAL SURGERY fibroids Family History Problem Relation Age of [...] Sister ??? No Known Problems Sister ??? Breast cancer Neg Hx ??? Ovarian cancer Neg Hx Social History Tobacco Use ??? Smoking status: Never Smoker ??? Smokeless tobacco: Never Used Substance Use Topics ??? Alcohol use: Yes Frequency: 2-3 times a week Drinks per session: 1 or 2 Binge frequency: Never Comment: social ??? Drug use: No Review of Systems Constitutional: Negative for chills and fever. Gastrointestinal: Positive for abdominal pain (lower abdomen) and nausea. Negative for constipation and vomiting. Stool is softer and slightly yellow Physical Exam Initial Vitals [10/30/18 0044] BP Pulse Resp Temp SpO2 (!) 238/117 82 16 98 ??F (36.7 ??C) 100 % MAP -- Physical Exam Nursing note and vitals reviewed. Constitutional: She appears well-developed and well-nourished. She is not diaphoretic. No distress. HENT: Head: Normocephalic and atraumatic. Mouth/Throat: Oropharynx is clear and moist. Eyes: Conjunctivae and EOM are normal. Pupils are equal, round, and reactive to light. Neck: Normal range of motion. Neck supple. Cardiovascular: Normal rate, regular rhythm and normal heart sounds. Exam reveals no gallop and no friction rub. No murmur heard. Pulmonary/Chest: Breath sounds normal. She has no wheezes. She has no rhonchi. She has no rales. Abdominal: Soft. Bowel sounds are normal. There is tenderness (lower abdomen without palpation). There is no rebound and no guarding. Musculoskeletal: Normal range of motion. She exhibits no edema or tenderness. Lymphadenopathy: She has no cervical adenopathy. Neurological: She is alert and oriented to person, place, and time. She has normal strength. Skin: Skin is warm and dry. Capillary refill takes less than 2 seconds. No rash noted. ED Course Procedures Labs Reviewed CBC W/ AUTO DIFFERENTIAL - Abnormal; Notable for the following components: Result Value Mean Corpuscular Hemoglobin 26.2 (*) Mean Corpuscular Hemoglobin Conc 30.9 (*) All other components within normal limits URINALYSIS, REFLEX TO URINE CULTURE - Abnormal; Notable for the following components: Specific [place], UA >=1.030 (*) Occult Blood UA 1+ (*) All other components within normal limits Narrative: Preferred Collection Type->Urine, Clean Catch COMPREHENSIVE METABOLIC PANEL TROPONIN I B-TYPE NATRIURETIC PEPTIDE TROPONIN I LIPASE TSH URINALYSIS MICROSCOPIC Narrative: Preferred Collection Type->Urine, Clean Catch POCT URINE ECG Results EKG 12-lead (In process) Result time 10/30/18 10:31:03 In process by Interface, Lab In [facility] (10/30/18 10:31:03) Narrative: Test Reason : R07.9, Vent. Rate : 076 BPM Atrial Rate : 076 BPM P-R Int : 160 ms QRS Dur : 084 ms QT Int : 400 ms P-R-T Axes : 052 009 045 degrees QTc Int : 450 ms Normal sinus rhythm Possible Left atrial enlargement Borderline Abnormal ECG When compared with ECG of 19-APR-2018 09:11, No significant change was found Referred By: AAAREFERR SELF Confirmed By: Imaging Results X-Ray Chest PA And Lateral (Final result) Result time 10/30/18 02:27:07 Final result by Julio César Zimmerman MD (10/30/18 02:27:07) Impression: No radiographic evidence of acute intrathoracic process. Electronically signed by: Julio César Zimmerman MD Date: 10/30/2018 Time: 02:27 Narrative: EXAMINATION: XR CHEST PA AND LATERAL CLINICAL HISTORY: Chest Pain; TECHNIQUE: PA and lateral views of the chest were performed. COMPARISON: 02/04/2017 FINDINGS: Metallic piercings overlie the bilateral hemithoraces. The cardiomediastinal silhouette appears within normal limits. The lungs are symmetrically aerated without evidence of focal airspace consolidation. There is no pleural effusion or pneumothorax. Visualized osseous structures demonstrate stabledegenerative changes. CT Abdomen Pelvis With Contrast (Final result) Result time 10/30/18 02:44:13 Final result by Julio César Zimmerman MD (10/30/18 02:44:13) Impression: 1. No CT evidence of acute intra-abdominal abnormality. 2. 3.9 cm left adnexal cyst. No significant free fluid in the pelvis. If patient's symptoms persist, follow-up ultrasound could be performed to ensure resolution. 3. Mild hepatomegaly. Electronically signed by: Julio César Zimmerman MD Date: 10/30/2018 Time: 02:44 Narrative: EXAMINATION: CT ABDOMEN PELVIS WITH CONTRAST CLINICAL HISTORY: LLQ pain, suspect diverticulitis; TECHNIQUE: Low dose axial images, sagittal and coronal reformations were obtained from the lung bases to the pubic symphysis following the IV administration of 100 mL of Omnipaque 350 . Oral contrast was not given. COMPARISON: None. FINDINGS: The lung bases are unremarkable. There is no pleural fluid present. The visualized portions of theheart appear normal. The liver is mildly enlarged. No focal hepatic abnormality identified. The portal vein is patent.The gallbladder shows no evidence of stones or pericholecystic fluid. There is no intra-or extrahepatic biliary ductal dilatation. The stomach, spleen, pancreas, and adrenal glands are unremarkable. The kidneys enhance symmetrically. The left kidney is mild anteriorly rotated. There is no evidence of hydronephrosis. There is a subcentimeter right renal hypodensity which is too small to accurately characterize. The urinary bladder appears within normal limits. There is mild lobular configuration of the uterus which may relate to underlying fibroids. There is a 3.9 cm left adnexal cyst. Theright adnexa appears within normal limits. There is no significant free fluid within the pelvis. The abdominal aorta is normal in course and caliber without significant atherosclerotic calcifications. The visualized loops of small and large bowel show no evidence of obstruction or inflammation. The appendix appears within normal limits. There is no ascites or free intraperitoneal air. Osseous structures demonstrate mild degenerative changes of the spine with lower lumbar facet arthropathy. The extraperitoneal soft tissues are unremarkable. US Pelvis Comp with Transvag NON-OB (xpd) (Final result) Result time 10/30/18 02:02:54 Procedure changed from US Transvaginal Non OB Final result by Marnie Chiang MD (10/30/18 02:02:54) Impression: Complex left ovarian lesion, which has imaging characteristics of a hemorrhagic cyst. Alternatively, this may represent an endometrioma. Prominent right ovarian follicle. Uterine fibroids. Electronically signed by: Marnie Chiang Date: 10/30/2018 Time: 02:02 Narrative: EXAMINATION: PELVIC ULTRASOUND CLINICAL HISTORY: Benign neoplasm of connective and other soft tissue, unspecifiedfibroid; TECHNIQUE: Real-time ultrasound of the pelvis was performed transabdominally and transvaginally. COMPARISON: 04/26/2014 FINDINGS: The uterus measures 10 x 5.2 x 6.2 cm. The endometrial stripe measures 2.5 mm. There are no uterine masses. A right anterior uterine fibroid measures 1.1 x 1.0 x 0.9 cm. A 2nd left uterine body fibroid measures 1.3 x 1.0 x 1.7 cm. A 3rd seen at the left uterine body and more cephalad measures 1.7x 1.3 x 1.6 cm. The right ovary measures 3 x 1.7 x 2.3 cm. Arterial and venous flow is seen. There is a prominent follicle measuring 1.5 x 0.9 x 1.4 cm. The left ovary measures 4.7 x 3.9 x 4.0 cm. Arterial and venous flow is seen. There is a complex area within the left ovary measuring 3 x 3.6 x 3.3 cm with a lattice like pattern.. There is no free fluid in the pelvis. Medical Decision Making: Initial Assessment: This is a 43-year-old female who presents the ER for evaluation 2 weeks of worsening lower quadrant abdominal pain. She reports she has a history of fibroids, but this not feel similar to this. She describes a vague ache, burning sensation. She reports earlier today she had an episode of intense pain as well as chest pain which is improving. 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 Current resting comfortably in bed, no acute distress, minimum lower quadrant abdominal discomfort upon deep palpation. Chest pain has resolved. Differential includes ACS, pneumonia, appendicitis, diverticulitis, ovarian cyst, uterine fibroid versus other cause. Willattempt pain control, blood work imaging and will reassess. Clinical Tests: Lab Tests: Ordered and Reviewed Radiological Study: Ordered and Reviewed Medical Tests: Reviewed and Ordered Attending Attestation: Physician Attestation for Scribe: Physician Attestation Statement for Scribe #1: I, Dr. Villafana, reviewed documentation, as scribed by Debbi Mistry in my presence, and it is both accurate and complete. ED Course as of Oct 31 1723 Sat Oct 30, 2018 0145 RestingComfortably in bed, no distress, awaiting CT and blood work. Pain well controlled. Patient will be signed out to Dr. De Anda for further care. [SE] ED Course User Index [SE] Bertha Villafana MD Clinical Impression: ICD-10-CM ICD-9-CM 1. Abdominal pain, unspecified abdominal location R10.9 789.00 2. Chest pain R07.9 786.50 3. Fibroid D21.9 215.9 4. Cyst of ovary, unspecified laterality N83.209 620.2 Bertha Villafana MD 10/30/181719 Bertha Villafana MD 10/30/181723 Kim Escobar RN - 10/30/2018 12:39 AM CDTBed: EXAM 07 Expected date: Expected time: Means of arrival: Comments: documented in this encounter Miscellaneous Notes Physician Progress Notes - Emergency Dept. - Yamila De Anda MD - 10/30/2018 4:48 AM CDT Encounter Date: 10/30/2018 ED Physician Progress Notes Physician Note: This is an assumption of care note Case accepted from Dr. Villafana at 2AM, pending CT abd/pelvis and repeat troponin I agree with previous physician's history/physical and overall assessment. Upon reassessment patient states that pain has resolved. Discussed results. Findings on imaging consistent with ovarian cyst. Repeat troponin negative. Patient stable for discharge. Given return precautions. CT abd/pelvis Impression: 1. No CT evidence of acute intra-abdominal abnormality. 2. 3.9 cm left adnexal cyst. No significant free fluid in the pelvis. If patient's symptoms persist, follow-up ultrasound could be performed to ensure resolution. 3. Mild hepatomegaly. pelvic US: Impression: Complex left ovarian lesion, which has imaging characteristics of a hemorrhagic cyst. Alternatively, this may represent an endometrioma. Prominent right ovarian follicle. Uterine fibroids documented in this encounter Plan of Treatment Not on filedocumented as of this encounter Goals Goal Patient Goal Associated Recent Patient-Stated? 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 XR CHEST PA AND STAT 10/30/2018 2:04 Results for this LATERAL AM CDT procedure are i n the results section. CT ABDOMEN PELVIS WITH STAT 10/30/2018 2:03 R esults for this CONTRAST AM CDT procedure are i n the results section. US PELVIS COMP WITH STAT 10/30/2018 1:52 Fibroid Resu lts for this TRANSVAG NON-OB (XPD) AM CDT proced ure are in the results section. POCT URINE STAT 10/30/2018 1:24 Res ults for this AM CDT procedure are i n the results section. URINALYSIS, REFLEX TO STAT 10/30/2018 1:15 Re sults for this URINE CULTURE AM CDT procedure are in the results section. URINALYSIS MICROSCOPIC STAT 10/30/2018 1:15 R esults for this AM CDT procedure are i n the results section. CBC W/ AUTO STAT 10/30/2018 1:12 Results for this DIFFERENTIAL AM CDT procedure are i n the results section. TROPONIN I STAT 10/30/2018 1:12 Results for this AM CDT procedure are i n the results section. TSH STAT 10/30/2018 1:12 Results for this AM CDT procedure are i n the results section. B-TYPE NATRIURETIC STAT 10/30/2018 1:12 Resul ts for this PEPTIDE AM CDT procedure are i n the results section. LIPASE STAT 10/30/2018 1:12 Results for this AM CDT procedure are i n the results section. COMPREHENSIVE STAT 10/30/2018 1:12 Results fo r this METABOLIC PANEL AM CDT procedure ar e in the results section. EKG 12-LEAD STAT 10/30/2018 12:45 Chest pain Results for this AM CDT procedure are i n the results section. documented in this encounter Results Troponin I #2 (10/30/2018 3:56 AM CDT) Troponin I 0.006 0.000 - 0.026 [facility] Comment: ng/mL [facility] [place] The reference interval for Troponin I represents the 9 9th percentile cutoff for our facility and is consistent with 3rd generation assay performance. Specimen Blood - Blood Performing Organization Address City/State/ZIP Code Phon e Number [facility] [address] [facility] [place] [address] [place] X-Ray Chest PA And Lateral (10/30/2018 2:04 AM CDT) Specimen Impressions Performed At [facility] No radiographic evidence of acute intrat horacic process. Electronically signed by: Julio César Zimmerman MD Date: 10/30/2018 Time: 02:27 Narrative Performed At EXAMINATION: [facility] XR CHEST PA AND LATERAL CLINICAL HISTORY: Chest Pain; TECHNIQUE: PA and lateral views of the chest were p erformed. COMPARISON: 02/04/2017 FINDINGS: Metallic piercings overlie the bilateral hemithoraces. ??The cardiomediastinal silhouette appears within normal sandra its. ??The lungs are symmetrically aerated without evidence of focal ai rspace consolidation. ??There is no pleural effusion or pneum othorax. ??Visualized osseous structures demonstrate stable deg enerative changes. Procedure Note Interface, Rad Results In - 10/30/2018 2:29 AM CDT EXAMINATION: XR CHEST PA AND LATERAL CLINICAL HISTORY: Chest Pain; TECHNIQUE: PA and lateral views of the chest were p erformed. COMPARISON: 02/04/2017 FINDINGS: Metallic piercings overlie the bilateral hemithoraces. The cardiomediastinal silhouette appears within normal limits. The lungs are symmetrically aerated without evidence of focal airspace consolidation. There is no pleural effusion or pneumoth orax. Visualized osseous structures demonstrate stable degenerative changes. Impression: No radiographic evidence of acute intrat horacic process. Electronically signed by:Julio César Zimmerman MD Date:10/30/2018 Time:02:27 Performing Organization Address City/State/ZIP Code Phon e Number [facility] n/a CT Abdomen Pelvis With Contrast (10/30/2018 2:03 AM CDT) Specimen Impressions Performed At [facility] 1. ??No CT evidence of acute intra-abdom inal abnormality. 2. ??3.9 cm left adnexal cyst. ??No significant free f luid in the pelvis. ??If patient's symptoms persist, follow-up ult rasound could be performed to ensure resolution. 3. ??Mild hepatomegaly. Electronically signed by: Julio César Zimmerman MD Date: 10/30/2018 Time: 02:44 Narrative Performed At EXAMINATION: [facility] CT ABDOMEN PELVIS WITH CONTRAST CLINICAL HISTORY: LLQ pain, suspect diverticulitis; TECHNIQUE: Low dose axial images, sagittal and coronal reformatio ns were obtained from the lung bases to the pubic symphysis following t he IV administration of 100 mL of Omnipaque 350 . ??Oral con trast was not given. COMPARISON: None. FINDINGS: The lung bases are unremarkable. ??There is no pleural fluid present. ??The visualized portions of the heart a ppear normal. The liver is mildly enlarged. ??No focal hepatic abnor mality identified. ??The portal vein is patent. ??The gallbla dder shows no evidence of stones or pericholecystic fluid. ??There i s no intra-or extrahepatic biliary ductal dilatation. The stomach, spleen, pancreas, and adren al glands are unremarkable. The kidneys enhance symmetrically. ??The left kidney i s mild anteriorly rotated. ??There is no evidence of hydronep hrosis. ??There is a subcentimeter right renal hypodensity which is to o small to accurately characterize. ??The urinary bladder appears within normal limits. ??There is mild lobular configuration of the u terus which may relate to underlying fibroids. ??There is a 3.9 cm lef t adnexal cyst. ??The right adnexa appears within normal limits. ??The re is no significant free fluid within the pelvis . The abdominal aorta is normal in course and caliber wi thout significant atherosclerotic calcificatio ns. The visualized loops of small and large bowel show no evidence of obstruction or inflammation. ??The appendix appears wi thin normal limits. ??There is no ascites or free in traperitoneal air. Osseous structures demonstrate mild degenerative mulligan es of the spine with lower lumbar facet arthropathy. ??The extraperito bret soft tissues are unremarkable. Procedure Note Interface, Rad Results In - 10/30/2018 2:46 AM CDT EXAMINATION: CT ABDOMEN PELVIS WITH CONTRAST CLINICAL HISTORY: LLQ pain, suspect diverticulitis; TECHNIQUE: Low dose axial images, sagittal and fidelia nal reformations were obtained from the lung bases to the pubic symphysis following the IV administration of 100 mL of Omnipaque 350 . Oral contrast was not given. COMPARISON: None. FINDINGS: The lung bases are unremarkable. There is no pleural fluid present. The visualized portions of the heart appear normal. The liver is mildly enlarged. No focal hepatic abnormality identified. The portal vein is patent. The gallbladder shows no evidence of stones or pericholecystic fluid. There is no intra-or extrahepatic biliary ductal dilatation. The stomach, spleen, pancreas, and adren al glands are unremarkable. The kidneys enhance symmetrically. The left kidney is mild anteriorly rotated. There is no evidence of hydronephrosis. There is a subcentimeter right renal hypodensity which is too small to accurately characterize. The urinary bladder appea rs within normal limits. There is mild lobular configuration of the uterus which may relate to underlying fibroids. There is a 3.9 cm left adnexal cyst. The right adnexa appears within normal limits. There is no signi ficant free fluid within the pelvis. The abdominal aorta is normal in course and caliber without significant atherosclerotic calcifications. The visualized loops of small and large bowel show no evidence of obstruction or inflammation. The appendix appears within normal limits. There is no ascites or free intraperitoneal air. Osseous structures demonstrate mild dege nerative changes of the spine with lower lumbar facet arthropathy. The extraperitoneal soft tissues are unremarkable. Impression: 1. No CT evidence of acute intra-abdomi nal abnormality. 2. 3.9 cm left adnexal cyst. No signif icant free fluid in the pelvis. If patient's symptoms persist, follow-up ultrasound could be performed to ensure resolution. 3. Mild hepatomegaly. Electronically signed by:Julio César Zimmerman MD Date:10/30/2018 Time:02:44 Performing Organization Address City/State/ZIP Code Phon e Number MMODEL FLUENCY [facility] Antibodies n/a US Pelvis Comp with Transvag NON-OB (xpd) (10/30/2018 1:52 AM CDT) Specimen Impressions Performed At [employer] brotips Complex left ovarian lesion, which has imaging charact eristics of a hemorrhagic cyst. ??Alternatively, this may represent an endometrioma. Prominent right ovarian follicle. Uterine fibroids. Electronically signed by: Marnie sheppard Date: 10/30/2018 Time: 02:02 Narrative Performed At EXAMINATION: MMODEL FLUENCY PELVIC ULTRASOUND CLINICAL HISTORY: Benign neoplasm of connective and other soft tissue, unspecifiedfibroid; TECHNIQUE: Real-time ultrasound of the pelvis was performed trans abdominally and transvaginally. COMPARISON: 04/26/2014 FINDINGS: The uterus measures 10 x 5.2 x 6.2 cm. ??The endometri al stripe measures 2.5 mm. ??There are no uterine masses. ??A ri ght anterior uterine fibroid measures 1.1 x 1.0 x 0.9 cm. ??A 2nd l eft uterine body fibroid measures 1.3 x 1.0 x 1.7 cm. ??A 3rd seen at t he left uterine body and more cephalad measures 1.7 x 1. 3 x 1.6 cm. The right ovary measures 3 x 1.7 x 2.3 cm. Arterial an d venous flow is seen. ??There is a prominent follicle me asuring 1.5 x 0.9 x 1.4 cm. The left ovary measures 4.7 x 3.9 x 4.0 cm. Arterial a nd venous flow is seen. ??There is a complex area within the left ova ry measuring 3 x 3.6 x 3.3 cm with a lattice like pattern .. There is no free fluid in the pelvis. Procedure Note Interface, Rad Results In - 10/30/2018 2:05 AM CDT EXAMINATION: PELVIC ULTRASOUND CLINICAL HISTORY: Benign neoplasm of connective and other soft tissue, unspecifiedfibroid; TECHNIQUE: Real-time ultrasound of the pelvis was p erformed transabdominally and transvaginally. COMPARISON: 04/26/2014 FINDINGS: The uterus measures 10 x 5.2 x 6.2 cm. The endometrial stripe measures 2.5 mm. There are no uterine masses. A right anterior uterine fibroid measures 1.1 x 1.0 x 0.9 cm. A 2nd left uterine body fibroid measures 1.3 x 1.0 x 1.7 cm. A 3rd seen at the left uterine body and more cephalad measures 1.7 x 1.3 x 1.6 cm. The right ovary measures 3 x 1.7 x 2.3 c m. Arterial and venous flow is seen. There is a prominent follicle measuring 1.5 x 0.9 x 1.4 cm. The left ovary measures 4.7 x 3.9 x 4.0 cm. Arterial and venous flow is seen. There is a complex area within the left ovary measuring 3 x 3.6 x 3.3 cm with a lattice like pattern.. There is no free fluid in the pelvis. Impression: Complex left ovarian lesion, which has i maging characteristics of a hemorrhagic cyst. Alternatively, this may represent an endometrioma. Prominent right ovarian follicle. Uterine fibroids. Electronically signed by:Marnie Chiang Date:10/30/2018 Time:02:02 Performing Organization Address City/[facility]/ZIP Code Phon e Number MMODEL FLUENCY MMODEL FLUENCY n/a POCT urine (10/30/2018 1:24 AM CDT) Pathologist Sig nature POC Preg Test, Ur Negative Negative Heat Treating Operator Acceptable Yes Specimen Urinalysis Microscopic (10/30/2018 1:15 AM CDT) RBC, UA 4 0 - 4 /hpf [facility] Squam Epithel, UA 6 /hpf [facility] Microscopic Comment SEE COMMENT [facility] Comment: [facility] Other formed elements not mentioned in the report are not present in the microscopic examination. Specimen Narrative Performed At Preferred Collection Type->Urine, Clean Catch [facility] Performing Organization Address City/[facility] Phon e Number [facility] - [address] [facility] [place] [address] [place] Urinalysis, Reflex to Urine Culture Urine, Clean Catch (10/30/2018 1:15 AM CDT) Specimen UA Urine, Clean Catch [facility] Color, UA Yellow Yellow, Straw, [facility] Appearance, UA Clear Clear [facility] pH, UA 6.0 5.0 - 8.0 [facility] Specific [place], >=1.030 (A) 1.005 - 1.030 [facility] Protein, UA Negative Negative [facility] Comment: [facility] Recommend a 24 hour urine protein or a urine protein/creatinine ratio if globulin induced proteinur ia is clinically suspected. Glucose, UA Negative Negative [facility] Ketones, UA Negative Negative [facility] Bilirubin (UA) Negative Negative [facility] Occult Blood UA 1+ (A) Negative [facility] Nitrite, UA Negative Negative [facility] Urobilinogen, UA Negative <2.0 EU/dL [facility] Leukocytes, UA Negative Negative [facility] Specimen Urine - Urine Narrative Performed At Preferred Collection Type->Urine, Clean Catch [facility] Performing Organization Address City/[facility]/ZIP Code Phon e Number [facility] [address] [place] [address] [place] TSH (10/30/2018 1:12 AM CDT) Pathologist Sig nature TSH 2.763 0.400 - 4.000 uIU/mL [facility] Specimen Blood - Blood Performing Organization Address [facility]/ZIP Code Phon e Number [facility] [address] [facility] [place] [address] [place] Lipase (10/30/2018 1:12 AM CDT) Pathologist Sig nature Lipase 15 4 - 60 U/L [facility] Specimen Blood - Blood Performing Organization Address City/[facility]/ZIP Code Phon e Number [facility] [address] [place] [address] [place] B-Type natriuretic peptide (BNP) (10/30/2018 1:12 AM CDT) Pathologist Sig nature BNP 12Comment: Values of 0 - 99 pg/mL [facility] less than 100 pg/ml [facility] are consistent with non-CHF populations. Specimen Blood - Blood Performing Organization Address City/[facility]/ZIP Code Phon e Number [facility] [address] [facility] [place] [address] [place] Troponin I #1 (10/30/2018 1:12 AM CDT) Troponin I <0.006 0.000 - 0.026 [facility] Comment: ng/mL [facility] The reference interval for Troponin I represents the 9 9th percentile cutoff for our facility and is consistent with 3rd generation assay performance. Specimen Blood - Blood Performing Organization Address City/[facility]/ZIP Code Phon e Number [facility] [address] [place] [address] [place] Comprehensive metabolic panel (10/30/2018 1:12 AM CDT) [facility] Signature Sodium 139 136 - 145 [facility] mmol/L [facility] Potassium 4.4 3.5 - 5.1 [facility] mmol/L [facility] Chloride 105 95 - 110 [facility] mmol/L [facility] CO2 25 23 - 29 [facility] mmol/L [facility] Glucose 109 70 - 110 [facility] mg/dL [facility] BUN 12 6 - 20 mg/dL [facility] Creatinine 0.9 0.5 - 1.4 [facility] mg/dL [facility] Calcium 9.7 8.7 - 10.5 [facility] mg/dL [facility] Total Protein 7.8 6.0 - 8.4 [facility] g/dL [facility] Albumin 4.2 3.5 - 5.2 [facility] g/dL [facility] Total Bilirubin 0.3 0.1 - 1.0 [facility] Comment: mg/dL [facility] For infants and newborns, interpretation of results sh ould be based on gestational age, weight and in agreement with clini stefania observations. Premature recommended reference ranges: Up to 24 hours.............<8.0 mg/dL Up to 48 hours............<12.0 mg/dL 3-5 days..................<15.0 mg/dL 6-29 days.................<15.0 mg/dL Alkaline 65 55 - 135 U/L [facility] Phosphatase [facility] AST 14 10 - 40 U/L [facility] ALT 12 10 - 44 U/L [facility] Anion Gap 9 8 - 16 [facility] mmol/L [facility] eGFR if >60 >60 [facility] [place] mL/min/1.[address] [facility] m^2 eGFR if non >60 >60 [facility] Comment: mL/min/1.[address] [facility] Calculation used to obtain the estimated glomerular fi ltration m^2 rate (eGFR) is the CKD-EPI equation. Specimen Blood - Blood Performing Organization Address City/State/ZIP Code Phon e Number [facility] - [address] [address] [place] CBC auto differential (10/30/2018 1:12 AM CDT) Pathologist Sig nature WBC 9.03 3.90 - 12.70 [facility] K/[facility] RBC 4.70 4.00 - 5.40 [facility] M/[facility] Hemoglobin 12.3 12.0 - 16.0 [facility] g/dL [facility] Hematocrit 39.8 37.0 - 48.5 % [facility] MCV 85 82 - 98 fL [facility] MCH 26.2 (L) 27.0 - 31.0 pg [facility] MCHC 30.9 (L) 32.0 - 36.0 [facility] g/dL [facility] RDW 14.5 11.5 - 14.5 % [facility] Platelets 269 150 - 350 K/uL [facility] MPV 10.4 9.2 - 12.9 fL [facility] Gran # (ANC) 4.6 1.8 - 7.7 K/uL [facility] Lymph # 3.4 1.0 - 4.8 K/uL [facility] Runnels # 0.9 0.3 - 1.0 K/uL [facility] Eos # 0.2 0.0 - 0.5 K/uL [facility] Baso # 0.01 0.00 - 0.20 [facility] K/[facility] Gran % 50.9 38.0 - 73.0 % [facility] Lymph % 37.5 18.0 - 48.0 % [facility] Runnels % 9.5 4.0 - 15.0 % [facility] Eosinophil % 2.0 0.0 - 8.0 % [facility] [place] Basophil % 0.1 0.0 - 1.9 % [facility] [place] Differential Method Automated [facility] Specimen Blood - Blood Performing Organization Address City/State/ZIP Code Phon e Number [facility] - [address] [place] [address] [place] EKG 12-lead (10/30/2018 12:45 AM CDT) Specimen Narrative Performed At Test Reason : R07.9, ROGELIO GE MUSE Vent. Rate : 076 BPM ? Atrial Rate : 076 BPM ?? P-R Int : 160 ms ?QRS D ur : 084 ms ?QT Int : 400 ms ? P-R-T Axe s : 052 009 045 degrees ?? QTc Int : 450 ms Normal sinus rhythm Possible Left atrial enlargement Borderline Abnormal ECG When compared with ECG of 19-APR-2018 09 :11, No significant change was found Confirmed by Randi Hawk MD ([id number]) on 11/01/2018 1:22:03 PM Referred By: AAAREFERR SELF ? Confirmed By:Randi Hawk MD Performing Organization Address City/State/ZIP Code Phon e Number ROGELIO GE MUSE ROGELIO GE MUSE N/A documented in this encounter Visit Diagnoses Diagnosis Abdominal pain, unspecified abdominal lo cation - Primary Chest pain Fibroid Leiomyoma of uterus, unspecified Cyst of ovary, unspecified laterality documented in this encounter Administered Medications Inactive Administered Medications - up to 3 most recent administrations Medication Order MAR Action Action Date Dose Rate Site aspirin tablet 325 mg Given 10/30/2018 1:07 AM CDT 325 mg 325 mg, Oral, ED 1 Time, On 10/30/18 at 0100, For 1 dose HYDROcodone-acetaminophen 10-325 mg per Given 10/30/2018 4:13 A M CDT 1 tablet tablet 1 tablet 1 tablet, Oral, ED 1 Time, On 10/30/18 at 0415, For 1 dose iohexol (OMNIPAQUE 350) injection 100 mL Given 10/30/2018 2:03 AM CDT 100 mLs 100 mL, Intravenous, IMG once as needed, contrast, Starting on 10/30/18 at 0303, For 1 dose ketorolac injection 15 mg Given 10/30/2018 1:19 AM CDT 15 mg 15 mg, Intravenous, ED 1 Time, On 10/30/18 at 0115, For 1 dose morphine injection 4 mg Given 10/30/2018 3:01 AM CDT 4 mg 4 mg, Intravenous, ED 1 Time, On 10/30/18 at 0300, For 1 dose ondansetron injection 4 mg Given 10/30/2018 3:01 AM CDT 4 mg 4 mg, Intravenous, ED 1 Time, On 10/30/18 at 0300, For 1 dose documented in this encounter Active and Recently Administered Medications Times are shown in CDT. Scheduled Medication Order 10/28/2018 10/29/2018 10/30/2018 aspirin tablet 325 mg (COMPLETED) 010 (Given - Provider: Thelma Butler RN) 325 mg, Oral, ED 1 Time, 10/30/18 at 0100, For 1 dose HYDROcodone-acetaminophen 10-325 mg per tablet 1 tablet (COMPLET ED) 0413 (Given - Provider: Thelma Butler, DIANDRA) 1 tablet, Oral, ED 1 Time, 10/30/18 at 0415, For 1 dose ketorolac injection 15 mg (COMPLETED) 011 (Given - Provider: Thelma Butler RN) 15 mg, Intravenous, ED 1 Time, 10/30/18 at 0115, For 1 dose morphine injection 4 mg (COMPLETED) 030 (Given - Provider: Thelma Butler, RN) 4 mg, Intravenous, ED 1 Time, 10/30/18 at 0300, For 1 dose ondansetron injection 4 mg (COMPLETED) 030 (Given - Provider: Thelma Butler, DIANDRA) 4 mg, Intravenous, ED 1 Time, 10/30/18 at 0300, For 1 dose PRN Medication Order 10/28/2018 10/29/2018 10/30/2018 iohexol (OMNIPAQUE 350) injection 100 mL (COMPLETED) 0203 (Given - Provider: Tawanda Michael, ) 100 mL, Intravenous, IMG once as needed, contrast, Starting 10/30/18 at 0303, For 1 dose documented in this encounter
--- OUTSIDE RECORDS SUMMARY | 2020-04-15 13:31 | XMS_ITS | Encounter Summary ---
:1975 Author Organization [facility] [employer] Subsidiaries and Affiliates Address [address] [place] [address] Care Team Providers Name Role Phone Que Nazario MD Primary Care Provider Reason for Visit Reason Comments Establish Care recent hospitalization for A fib--pt has seen bindery machine setter since Encounter Details Date Type Department Care Team Description 04/22/2018 Office Visit Danica Morgan - Katie Nazario Ch atrial fibrillation (Primary Dx); [address] MD Que Paroxysmal atrial fibrillation; [address] [place], [facility] [address] Morbid obesity; [address] Type 2 diabetes mellitus without complic ation, without long-term [place] [id number] [phone] Boat Tender: [phone] Eneida Muñoz (Fax) Social History Tobacco Use Types Packs/Day [...] Sign Reading Time Taken Comments Blood Pressure 128/80 04/22/2018 8:22 AM [employer] Pulse 69 04/22/2018 8:22 AM [employer] Temperature 36.6 ??C (97.8 ??F) 04/22/2018 8:22 AM [employer] Respiratory Rate 18 04/22/2018 8:22 AM [employer] Oxygen Saturation 99% 04/22/2018 8:22 AM [employer] Inhaled Oxygen Concentration - - Weight 116.2 kg (256 lb 2.8 oz) 04/22/2018 8:22 AM [employer] Height 167.6 cm (5' 6) 04/22/2018 8:22 AM [employer] Body Mass Index 41.35 04/22/2018 8:22 AM [employer] documented in this encounter Progress Notes Katie Nazario MD - 04/22/2018 9:00 AM CST HPI: Remedios Schofield is a 43 y.o. year old female that presents to establish care. Sheh as history of A fib. She was refer here by Dr. Sandoval. He has her working on losing 100lbs.She startes the [employer] plan tomorrow. Chief Complaint Patient presents with ??? Establish Care recent hospitalization for Afib--pt has seen bindery machine setter since . Past Medical History: Diagnosis Date ??? A-fib ??? Atrial fibrillation 1983 ??? Atrial fibrillation ??? Bronchitis ??? Hypertension Social History Socioeconomic History ??? Marital status: Spouse name: Not on file ??? Number of children: Not on file ??? Years of education: Not on file ??? Highest education level: Not on file Social Needs ??? Financial resource strain: Not on file ??? Food insecurity - worry: Not on file ??? Food insecurity - inability: Not on file ??? Transportation needs - medical: Not on file ??? Transportation needs - non-medical: Not on file Occupational History ??? Not on file Tobacco Use ??? Smoking status: Never Smoker ??? Smokeless tobacco: Never Used Substance and Sexual Activity ??? Alcohol use: Yes Comment: social ??? Drug use: No ??? Sexual activity: Yes Partners: Male control/protection: None Other Topics Concern ??? Not on file Social History Narrative Merged History Encounter Past Surgical History: Procedure Laterality Date ??? [...] Neg Hx ??? Ovarian cancer Neg Hx Review of Systems General ROS: negative for chills, fever or weight loss Psychological ROS: negative for hallucination, depression or suicidal ideation Ophthalmic ROS: negative for blurry vision, photophobia or eye pain ENT ROS: negative for epistaxis, sore throat or rhinorrhea Respiratory ROS: no cough, shortness of breath, or wheezing Cardiovascular ROS: no chest pain or dyspnea on exertion Gastrointestinal ROS: no abdominal pain, change in bowel habits, or black/ bloody stools Genito-Urinary ROS: no dysuria, trouble voiding, or hematuria Musculoskeletal ROS: negative for gait disturbance or muscular weakness Neurological ROS: no syncope or seizures; no ataxia Dermatological ROS: negative for pruritis, rash and jaundice Physical Exam: BP 128/80 Pulse 69 Temp 97.8 ??F (36.6 ??C) (Oral) Resp 18 Ht 5' 6 (1.676 m) Wt 116.2 kg (256 lb 2.8 oz) LMP 03/28/2018 (Exact Date) SpO2 99% BMI 41.35 kg/m?? General appearance: alert, cooperative, no distress Constitutional:Oriented to person, place, and time.appears well-developed and well-nourished. HEENT: Normocephalic, atraumatic, neck symmetrical, no nasal discharge, TM - clear bilaterally Eyes: conjunctivae/corneas clear, PERRL, EOM's intact Lungs: clear to auscultation bilaterally, no dullness to percussion bilaterally Heart: regular rate and rhythm without rub; no displacement of the PMI Abdomen: soft, non-tender; bowel sounds normoactive; no organomegaly Extremities: extremities symmetric; no clubbing, cyanosis, or edema Integument: Skin color, texture, turgor normal; no rashes; hair distrubution normal Neurologic: Alert and oriented X 3, normal strength, normal coordination and gait Psychiatric: no pressured speech; normal affect; no evidence of impaired cognition Physical Exam LABS: Complete Blood Count Lab Results Component Value Date RBC 5.11 03/27/2018 HGB 13.1 03/27/2018 HCT 42.4 03/27/2018 MCV 83 03/27/2018 MCH 25.6 (L) 03/27/2018 MCHC 30.9 (L) 03/27/2018 RDW 14.9 (H) 03/27/2018 PLT 329 03/27/2018 MPV 10.7 03/27/2018 GRAN 2.7 03/27/2018 GRAN 34.4 (L) 03/27/2018 LYMPH 4.0 03/27/2018 LYMPH 51.1 (H) 03/27/2018 MONO 0.9 03/27/2018 MONO 11.0 03/27/2018 EOS 0.2 03/27/2018 BASO 0.04 03/27/2018 EOSINOPHIL 2.7 03/27/2018 BASOPHIL 0.5 03/27/2018 DIFFMETHOD Automated 03/27/2018 Comprehensive Metabolic Panel Lab Results Component Value Date GLU 137 (H) 03/26/2018 BUN 14 03/26/2018 CREATININE 0.9 03/26/2018 NA 134 (L) 03/26/2018 K 3.5 03/26/2018 CL 98 03/26/2018 PROT 8.0 03/26/2018 ALBUMIN 4.0 03/26/2018 BILITOT 0.5 03/26/2018 AST 19 03/26/2018 ALKPHOS 61 03/26/2018 CO2 29 03/26/2018 ALT 12 03/26/2018 ANIONGAP 7 (L) 03/26/2018 EGFRNONAA >60 03/26/2018 ESTGFRAFRICA >60 03/26/2018 LIPID Lab Results Component Value Date CHOL 206 (H) 02/04/2017 HDL 49 02/04/2017 TSH Lab Results Component Value Date TSH 4.793 (H) 03/26/2018 Current Outpatient Medications Medication Sig Dispense Refill ??? albuterol 90 mcg/actuation inhaler Inhale 2 puffs into the lungs every 6 (six) hours as needed for Wheezing or Shortness of Breath. Rescue 1 Inhaler 0 ??? aspirin (ECOTRIN) 81 MG EC tablet Take 81 mg by mouth once daily. ??? inhalation spacing device Use as directed for inhalation. 1 Device 0 ??? losartan (COZAAR) 100 MG tablet Take 1 tablet (100 mg total) by mouth once daily. 90 tablet 3 ??? metFORMIN (GLUCOPHAGE-XR) 500 MG 24 hr tablet Take 1 tablet (500 mg total) by mouth before dinner. 90 tablet 3 ??? metoprolol succinate (TOPROL-XL) 50 MG 24 hr tablet Take 1 tablet (50 mg total) by mouth once daily. 90 tablet 3 ??? flecainide (TAMBOCOR) 150 MG Tab Take 1 tablet (150 mg total) by mouth continuous prn. Take 2 tablets for atrial fibrillation 20 tablet 11 ??? magnesium 200 mg Tab Take 400 mg by mouth. No current facility-administered medications for this visit. Assessment: ICD-10-CM ICD-9-CM 1. Chronic atrial fibrillation I48.2 427.31 2. Paroxysmal atrial fibrillation I48.0 427.31 3. Morbid obesity E66.01 278.01 4. Type 2 diabetes mellitus without complication, without long-term current use of insulin E11.9 250.00 Hemoglobin A1c Plan: Follow-up in 4 weeks (on 05/20/2018). Katie Nazario MD documented in this encounter Plan of Treatment Not on filedocumented as of this encounter Goals Goal Patient Goal Associated Recent Patient-Stated? Author Type Problems Progress Blood Pressure Blood 197/101 Yes Myochsner, < 130/80 Pressure (02/21/2020 System Messag e 10:15 AM [employer]) Take at least Blood No [place], one [...] as of this encounter Visit Diagnoses Diagnosis Chronic atrial fibrillation - Primary Atrial fibrillation Paroxysmal atrial fibrillation Atrial fibrillation Morbid obesity Type 2 diabetes mellitus without complic ation, without long-term current use of insulin documented in this encounter
--- OUTSIDE RECORDS SUMMARY | 2020-04-15 13:31 | XMS_ITS | Encounter Summary ---
:1975 Author Organization [facility]sidi[facility] and [facility]ili[facility] Address [address] [place] [address] Care Team Providers Name Role Phone GENTRY Braswell Unavailable Unavailable MD Romario Primary Care Provider gina Moralez II, MD, F. Unavailable Maggy Agustin MD Unavailable Napoleon Loyola MA Unavailable Unavailable Encounter Details Date Type Department Care Team Description 01/17/2019 Telephone Sima - FACILITIES MAINTENANCE SUPERVISOR - MOB Sascha Terra Anton MD [address] [address] [address] [phone] Abalone Processor: Alia Sauceda Social History Tobacco Use Types [...] this encounter Miscellaneous Notes Telephone Encounter - Rita Anand MA - 01/17/2019 8:16 AM CSTContacted pt to inform Dr. Rhoades had to add on a surgery this morning and will be running late to clinic today at 9:30am. Asked pt how much is she draining, pt states Sat: 100cc Sun: 30cc Mon(today):20cc. Informed pt in that case Dr. Rhoades would leave the drain in until she is draining less. Pt rescheduled for Friday 01/19 at 9:30am, Patient verbalized understanding. documented in this encounter Plan of Treatment Not on filedocumented as of this encounter Goals Goal Patient Goal Associated Recent Patient-Stated? 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 Reduce portion size Diet No Precious Hernandez DIET - Meal Planning Diet No Precious Montalvo ra Note: Your goal is to incorporate meal plannin g in your daily routine. Reduce portions Diet No Katie, C hristina Meal plan Diet No Marco A Wilosn Exercise at least 150 minutes per week. Exercise No Precious Wilson Note: Your goal is to increase exercise routin e and start Spin Classes next week. documented as of this encounter Visit Diagnoses Not on filedocumented in this encounter
--- OUTSIDE RECORDS SUMMARY | 2020-04-15 13:31 | XMS_ITS | Encounter Summary ---
:1975 Author Organization [facility] and [facility] Subsidiaries and Affiliates Address [address] [place] [address] Care Team Providers Name Role Phone GENTRY Braswell Unavailable Unavailable MD Romario Primary Care Provider gina Moralez II, MD, F. Unavailable Maggy Agustin MD Unavailable Napoleon Loyola MA Unavailable Unavailable [employer] [facility] [employer] Worker [phone] Jim Biggs [facility] Clinician MD Romario [facility] Responsibl e Provider 1, Employee Plan - [facility] Co ntract Unavailable Encounter Details Date Type Department Care Team Description 01/26/2019 Travel Social History Tobacco Use Types Packs/Day [...] 1 to 4 times per year 10/08 yarsanism services? Do you belong to any clubs [...] Pressure (02/21/2020 System Messag e 10:15 AM FANCY SEWER) Take at least Blood No Cutura, one BP reading Pressure Precious per week at various times of the day Maintain a low Diet No Katie, sodium diet Precious Note: Citizen Of [place] Heart Association (AHA) guideli francisco recommend less than 2000mg of dietary salt per day. Reduce portion size Diet No Precious Hernandez DIET - Meal Planning Diet No Cutu Preciosu castaneda Note: Your goal is to incorporate [...]
--- OUTSIDE RECORDS SUMMARY | 2020-04-15 13:31 | XMS_ITS | Encounter Summary ---
:1975 Author Organization [facility] and [facility] Subsidiaries and Affiliates Address [address] [place] [address] Care Team Providers Name Role Phone GENTRY Braswell Unavailable Unavailable MD Romario Primary Care Provider gina Moralez II, MD, F. Unavailable Maggy Agustin MD Unavailable Encounter Details Date Type Department Care Team Description 11/04/2018 Travel Social History Tobacco Use Types Packs/Day [...] or relatives? How often do you attend buddhism or 1 to 4 times per year 10/08 orthodoxy services? 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
--- OUTSIDE RECORDS SUMMARY | 2020-04-15 13:31 | XMS_ITS | Encounter Summary ---
:1975 Author Organization [facility] and It s Subsidiaries and Affiliates Address [address] [place] [address] Care Team Providers Name Role Phone Que Nazario MD Primary Care Provider Reason for Visit Reason Comments Ankle Injury Encounter Details Date Type Department Care Team Description 05/10/2018 Office Visit [facility] - Leslie Chiang, Injury of right Sima SPINNING FRAME CHANGER ankle, initial [address] [facility] [address] [facility] encounter (Primary SELWYN WALKER [id number] SELWYN AWAN [id number] Dx) [phone] Social History Tobacco Use Types Packs/Day Years [...] 1 to 4 times per year 10/08 [employer]? Do you belong to any clubs [...] Sign Reading Time Taken Comments Blood Pressure 150/87 05/10/2018 3:09 PM TANKROOM WORKER Pulse 76 05/10/2018 3:09 PM TANKROOM WORKER Temperature 36.5 ??C (97.7 ??F) 05/10/2018 3:09 PM TANKROOM WORKER Respiratory Rate 18 05/10/2018 3:09 PM TANKROOM WORKER Oxygen Saturation 100% 05/10/2018 3:09 PM TANKROOM WORKER Inhaled Oxygen Concentration - - Weight 118.8 kg (262 lb) 05/10/2018 3:09 PM TANKROOM WORKER Height 170.2 cm (5' 7) 05/10/2018 3:09 PM TANKROOM WORKER Body Mass Index 41.04 05/10/2018 3:09 PM TANKROOM WORKER documented in this encounter Patient Instructions Patient InstructionsLeslie Chiang, [employer]ING FRAME CHANGER - 05/10/2018 2:50 PM CST Patient educated on rest, ice, compression, and elevation. Patient to take ibuprofen every 6 hr as needed for pain. Patient to follow up with Orthopedics if symptoms persist or worsen in the next 2 weeks. Understanding Ankle Sprain The ankle is the joint where the leg and foot meet. Bones are held in place by connective tissue called ligaments. When ankle ligaments are stretched to the point of pain and injury, it is called an ankle sprain. A sprain can tear the ligaments. These tears can be very small but still cause pain. Ankle sprains can be mild or severe. What causes an ankle sprain? A sprain may occur when you twist your ankle or bend it too far. This can happen when you stumble orfall. Things that can make an ankle sprain more likely include: ?? Having had an ankle sprain before ?? Playing sports that involve running and jumping. Or playing contact sports such as football or hockey. ?? Wearing shoes that don???t support your feet and ankles well ?? Having ankles with poor strength and flexibility Symptoms of an ankle sprain Symptoms may include: ?? Pain or soreness in the ankle ?? Swelling ?? Redness or bruising ?? Not being able to walk or put weight on the affected foot ?? Reduced range of motion in the ankle ?? A popping or tearing feeling at the time the sprain occurs ?? An abnormal or dislocated look to the ankle ?? Instability or too much range of motion in the ankle Treatment for an ankle sprain Treatment focuses on reducing pain and swelling, and avoiding further injury. Treatments may include: ?? Resting the ankle. Avoid putting weight on it. This may mean using crutches until the sprain heals. ?? Prescription or fqkl-jky-bxlciqe pain medicines. These help reduce swelling and pain. ?? Cold packs. These help reduce pain and swelling. ?? Raising your ankle above your heart. This helps reduce swelling. ?? Wrapping the ankle with an elastic bandage or ankle brace. This helps reduce swelling and gives some support to the ankle. In rare cases, you may need a cast or boot. ?? Stretching and other exercises. These improve flexibility and strength. ?? Heat packs. These may be recommended before doing ankle exercises. Possible complications of an ankle sprain An ankle that has been weakened by a sprain can be more likely to have repeated sprains afterward. Doing exercises to strengthen your ankle and improve balance can reduce your risk for repeated sprains. Other possible complications are long-term (chronic) pain or an ankle that remains unstable. When to call your healthcare provider Call your healthcare provider right away if you have any of these: ?? Fever of 100.4??F (38??C) or higher, or as directed ?? Pain, numbness, discoloration, or coldness in the foot or toes ?? Pain that gets worse ?? Symptoms that don???t get better, or get worse ?? New symptoms Date Last Reviewed: 05/17/2015 ?? [id number] [employer]. [address] [place] [address]. All rights reserved. This information is not intended as a substitute for professional medical care. Always follow your healthcare professional's instructions. Ankle Sprain (Adult) An ankle sprain is a stretching or tearing of the ligaments that hold the ankle joint together. There are no broken bones. An ankle sprain is a common injury for both children and adults. It happens when the ankle turns, twists, or rolls in an awkward way. This can be caused by a sports injury. Or it can happen from doing something as simple as stepping on an uneven surface. Ligaments are made of tough connective tissue. Normally, ligaments stretch a certain amount and thengo back to their normal place. A sprain happens when a ligament is forced to stretch more than the normal amount. A severe sprain can actually tear the ligaments. If you have a severe sprain, you may have felt or heard something like a pop when you were injured. Ankle sprains are given a grade depending on whether they are mild, moderate, or severe: ?? Grade 1 sprain. A mild sprain with minor stretching and damage to the ligament. ?? Grade 2 sprain. A moderate sprain where the ligament is partly torn. ?? Grade 3 sprain. The most severe kind of sprain. The ligament is completely torn. Most sprains??take about 4 to 6 weeks to heal. A severe sprain can take several months to recover. Your healthcare provider may order X-rays to be sure you don???t have a fracture, or broken bone. The injured area will feel sore. Swelling and pain may make it hard to walk. You may need crutches if walking is painful. Or your provider may have you use a cast boot or air splint. This will depend on the grade of ankle sprain that you have. Home care ?? For a Grade 1 sprain, use RICE (rest, ice, compression, and elevation): ?? Rest your ankle. Don???t walk on it. ?? Ice should be used right away to help control swelling. Place an ice pack over the injured area for 20 minutes. Do this every??3 to 6??hours??for the first??24 to 48 hours.??Keep using ice packs to ease pain and swelling as needed. To make an ice pack, put ice cubes in a plastic??bag that seals at the top. Wrap the bag in a??clean, thin??towel or cloth. Never put ice or an ice pack directly on theskin. The ice pack can be put right on the cast, bandage, or splint. As the ice melts, be careful that the cast, bandage, or splint doesn???t get wet. If you have a boot, open it to apply an ice pack, unless told otherwise by your provider. ?? Compression devices help to control swelling. They also keep the ankle from moving and support your injured ankle. These devices include dressings, bandages, and wraps. ?? Elevate or raise your ankle above the level of your heart when sitting or lying down. This is very important for the first 48 hours. ?? Follow the RICE guidelines for a Grade 2 sprain. This type of sprain will take longer to heal. Your provider may have you wear a splint, cast, or brace to keep your ankle from moving. ?If you have a Grade 3 sprain, you are at risk for long-term ankle instability. In rare cases, surgery may be needed. Your provider may have you wear a short leg cast or a walking boot for 2 to 3 weeks. ?? After 48 hours, it may be helpful to apply heat??for 20 minutes several times a day. You can do this with a heating pad or warm compress. Or you may want to go back and forth between using ice and heat. Never apply heat directly to the skin. Always wrap the heating pad or warm compress in a clean, thin towel or cloth. ?? You may use??bqei-tjx-yguflnl pain medicine??(NSAIDS or nonsteroidal anti- inflammatory drugs) to control pain, unless another pain medicine was prescribed. Talk with your provider before using thesemedicines if you have chronic liver or kidney disease, or have ever had a stomach ulcer or GI (gastro intestinal) bleeding. ?? Follow any rehabilitation exercises your provider gives you. These can help you be more flexible and improve your balance and coordination. This is helpful in preventing long-term ankle problems. Prevention To help prevent ankle sprains, it???s important to have good strength, balance, and flexibility. Be sure to: ?? Always warm up before you exercise or do something very active ?? Be careful when walking or running on uneven or cracked surfaces ?? Wear shoes that are in good condition and fit well ?? Listen to your body???s signals to slow down when you are in pain or tired Follow-up care Any X-rays you had today don???t show any broken bones, breaks, or fractures. Sometimes fractures don???t show up on the first X-ray. Bruises and sprains can sometimes hurt as much as a fracture. Theseinjuries can take time to heal completely. If your symptoms don???t get better or they get worse, talk with your healthcare provider. You may need a repeat X-ray. Follow up with your healthcare provider, or as advised. Check for any warning signs listed below. When to seek medical advice Call your healthcare provider right away??if any of these occur: ?? Fever of 100.4 F (38 C) or higher, or as directed by your healthcare provider ?? The injury doesn???t seem to be healing ?? The swelling comes back ?? The cast has a bad smell ?? The plaster cast or splint gets wet or soft ?? The fiberglass cast or splint gets wet and does not dry for 24 hours ?? The pain or swelling increases, or redness appears ?? Your toes become cold, blue, numb, or tingly ?? The skin is discolored (looks blue, purple, or cagle), has blisters, or is irritated ?? You re-injure your ankle Date Last Reviewed: 01/26/2015 ?? [id number] [employer]. [address] [place] [address], [place] [address]. All rights reserved. This information is not intended as a substitute for professional medical care. Always follow your healthcare professional's instructions. ROOM WORKER documented in this encounter Progress Notes Leslie Chiang NP - 05/10/2018 2:50 PM CST Subjective: Patient ID: Remedios Schofield is a 43 y.o. female. Vitals: height is 5' 7 (1.702 m) and weight is 118.8 kg (262 lb). Her temperature is 97.7 ??F (36.5 ??C). Her blood pressure is 150/87 (abnormal) and her pulse is 76. Her respiration is 18 and oxygensaturation is 100%. Chief Complaint: Ankle Injury Pt was walking to her house and slipped on the step and twisted Rt ankle. Ankle Injury The incident occurred 6 to 12 hours ago. The incident occurred at home. The injury mechanism was a fall. The pain is present in the right ankle. The quality of the pain is described as aching and stabbing. The pain is at a severity of 7/10. The pain is severe. The pain has been constant since onset. The symptoms are aggravated by weight bearing and movement. She has tried ice and NSAIDs for the symptoms. The treatment provided no relief. Constitution: Negative for fatigue. HENT: Negative for facial swelling and facial trauma. Neck: Negative for neck stiffness. Cardiovascular: Negative for chest trauma. Eyes: Negative for eye trauma, double vision and blurred vision. Gastrointestinal: Negative for abdominal trauma, abdominal pain and rectal bleeding. Genitourinary: Negative for hematuria, missed menses, genital trauma and pelvic pain. Musculoskeletal: Positive for pain, trauma, joint pain and joint swelling. Negative for abnormal ROMof joint. Skin: Negative for color change, wound, abrasion, laceration and bruising. Neurological: Negative for dizziness, history of vertigo, light-headedness, coordination disturbances, altered mental status and loss of consciousness. Hematologic/Lymphatic: Negative for history of bleeding disorder. Psychiatric/Behavioral: Negative for altered mental status. Objective: Physical Exam Constitutional: She is oriented to person, place, and time. She appears well- developed and well-nourished. She is cooperative. Non-toxic appearance. She does not appear ill. No distress. HENT: Head: Normocephalic and atraumatic. Right Ear: Hearing, tympanic membrane, external ear and ear canal normal. Left Ear: Hearing, tympanic membrane, external ear and ear canal normal. Nose: Nose normal. No mucosal edema, rhinorrhea or nasal deformity. No epistaxis. Right sinus exhibits no maxillary sinus tenderness and no frontal sinus tenderness. Left sinus exhibits no maxillary sinus tenderness and no frontal sinus tenderness. Mouth/Throat: Uvula is midline, oropharynx is clear and moist and mucous membranes are normal. No trismus in the jaw. Normal dentition. No uvula swelling. No posterior oropharyngeal erythema. Eyes: Conjunctivae and lids are normal. Right eye exhibits no discharge. Left eye exhibits no discharge. No scleral icterus. Sclera clear bilat Neck: Trachea normal, normal range of motion, full passive range of motion without pain and phonation normal. Neck supple. Cardiovascular: Normal rate, regular rhythm, normal heart sounds, intact distal pulses and normal pulses. Pulmonary/Chest: Effort normal and breath sounds normal. No respiratory distress. Abdominal: Soft. Normal appearance and bowel sounds are normal. She exhibits no distension, no pulsatile midline mass and no mass. There is no tenderness. Musculoskeletal: She exhibits no edema or deformity. Right ankle: She exhibits decreased range of motion and swelling. Tenderness. Feet: Neurological: She is alert and oriented to person, place, and time. She exhibits normal muscle tone.Coordination normal. Skin: Skin is warm, dry and intact. She is not diaphoretic. No pallor. Psychiatric: She has a normal mood and affect. Her speech is normal and behavior is normal. Judgmentand thought content normal. Cognition and memory are normal. Nursing note and vitals reviewed. Xr Ankle Complete 3 View Right Result Date: 05/10/2018 EXAMINATION: XR ANKLE COMPLETE 3 VIEW RIGHT CLINICAL HISTORY: Unspecified injury of right ankle, initial encounter TECHNIQUE: AP, lateral, and oblique images of the right ankle were performed. COMPARISON: None FINDINGS: The tibiotalar joint is well aligned. There is no fracture identified, no osseouslesions. Soft tissue swelling overlying the lateral malleolus. Soft tissue swelling overlying the lateral malleolus. Electronically signed by: Candida Alcazar MD Date: 05/10/2018 Time: 15:44 Assessment: 1. Injury of right ankle, initial encounter Plan: Injury of right ankle, initial encounter - XR ANKLE COMPLETE 3 VIEW RIGHT; Future; Expected date: 05/10/2018 Patient Instructions Patient educated on rest, ice, compression, and elevation. Patient to take ibuprofen every 6 hr as needed for pain. Patient to follow up with Orthopedics if symptoms persist or worsen in the next 2 weeks. Understanding Ankle Sprain The ankle is the joint where the leg and foot meet. Bones are held in place by connective tissue called ligaments. When ankle ligaments are stretched to the point of pain and injury, it is called an ankle sprain. A sprain can tear the ligaments. These tears can be very small but still cause pain. Ankle sprains can be mild or severe. What causes an ankle sprain? A sprain may occur when you twist your ankle or bend it too far. This can happen when you stumble orfall. Things that can make an ankle sprain more likely include: ?? Having had an ankle sprain before ?? Playing sports that involve running and jumping. Or playing contact sports such as football or hockey. ?? Wearing shoes that don???t support your feet and ankles well ?? Having ankles with poor strength and flexibility Symptoms of an ankle sprain Symptoms may include: ?? Pain or soreness in the ankle ?? Swelling ?? Redness or bruising ?? Not being able to walk or put weight on the affected foot ?? Reduced range of motion in the ankle ?? A popping or tearing feeling at the time the sprain occurs ?? An abnormal or dislocated look to the ankle ?? Instability or too much range of motion in the ankle Treatment for an ankle sprain Treatment focuses on reducing pain and swelling, and avoiding further injury. Treatments may include: ?? Resting the ankle. Avoid putting weight on it. This may mean using crutches until the sprain heals. ?? Prescription or qtef-pbc-qjdcziz pain medicines. These help reduce swelling and pain. ?? Cold packs. These help reduce pain and swelling. ?? Raising your ankle above your heart. This helps reduce swelling. ?? Wrapping the ankle with an elastic bandage or ankle brace. This helps reduce swelling and gives some support to the ankle. In rare cases, you may need a cast or boot. ?? Stretching and other exercises. These improve flexibility and strength. ?? Heat packs. These may be recommended before doing ankle exercises. Possible complications of an ankle sprain An ankle that has been weakened by a sprain can be more likely to have repeated sprains afterward. Doing exercises to strengthen your ankle and improve balance can reduce your risk for repeated sprains. Other possible complications are long-term (chronic) pain or an ankle that remains unstable. When to call your healthcare provider Call your healthcare provider right away if you have any of these: ?? Fever of 100.4??F (38??C) or higher, or as directed ?? Pain, numbness, discoloration, or coldness in the foot or toes ?? Pain that gets worse ?? Symptoms that don???t get better, or get worse ?? New symptoms Date Last Reviewed: 05/17/2015 ?? [id number] [employer]. [address] [place] [address]. All rights reserved. This information is not intended as a substitute for professional medical care. Always follow your healthcare professional's instructions. Ankle Sprain (Adult) An ankle sprain is a stretching or tearing of the ligaments that hold the ankle joint together. There are no broken bones. An ankle sprain is a common injury for both children and adults. It happens when the ankle turns, twists, or rolls in an awkward way. This can be caused by a sports injury. Or it can happen from doing something as simple as stepping on an uneven surface. Ligaments are made of tough connective tissue. Normally, ligaments stretch a certain amount and thengo back to their normal place. A sprain happens when a ligament is forced to stretch more than the normal amount. A severe sprain can actually tear the ligaments. If you have a severe sprain, you may have felt or heard something like a pop when you were injured. Ankle sprains are given a grade depending on whether they are mild, moderate, or severe: ?? Grade 1 sprain. A mild sprain with minor stretching and damage to the ligament. ?? Grade 2 sprain. A moderate sprain where the ligament is partly torn. ?? Grade 3 sprain. The most severe kind of sprain. The ligament is completely torn. Most sprains??take about 4 to 6 weeks to heal. A severe sprain can take several months to recover. Your healthcare provider may order X-rays to be sure you don???t have a fracture, or broken bone. The injured area will feel sore. Swelling and pain may make it hard to walk. You may need crutches if walking is painful. Or your provider may have you use a cast boot or air splint. This will depend on the grade of ankle sprain that you have. Home care ?? For a Grade 1 sprain, use RICE (rest, ice, compression, and elevation): ?? Rest your ankle. Don???t walk on it. ?? Ice should be used right away to help control swelling. Place an ice pack over the injured area for 20 minutes. Do this every??3 to 6??hours??for the first??24 to 48 hours.??Keep using ice packs to ease pain and swelling as needed. To make an ice pack, put ice cubes in a plastic??bag that seals at the top. Wrap the bag in a??clean, thin??towel or cloth. Never put ice or an ice pack directly on theskin. The ice pack can be put right on the cast, bandage, or splint. As the ice melts, be careful that the cast, bandage, or splint doesn???t get wet. If you have a boot, open it to apply an ice pack, unless told otherwise by your provider. ?? Compression devices help to control swelling. They also keep the ankle from moving and support your injured ankle. These devices include dressings, bandages, and wraps. ?? Elevate or raise your ankle above the level of your heart when sitting or lying down. This is very important for the first 48 hours. ?? Follow the RICE guidelines for a Grade 2 sprain. This type of sprain will take longer to heal. Your provider may have you wear a splint, cast, or brace to keep your ankle from moving. ?If you have a Grade 3 sprain, you are at risk for long-term ankle instability. In rare cases, surgery may be needed. Your provider may have you wear a short leg cast or a walking boot for 2 to 3 weeks. ?? After 48 hours, it may be helpful to apply heat??for 20 minutes several times a day. You can do this with a heating pad or warm compress. Or you may want to go back and forth between using ice and heat. Never apply heat directly to the skin. Always wrap the heating pad or warm compress in a clean, thin towel or cloth. ?? You may use??unoo-pbd-bwivsxp pain medicine??(NSAIDS or nonsteroidal anti- inflammatory drugs) to control pain, unless another pain medicine was prescribed. Talk with your provider before using thesemedicines if you have chronic liver or kidney disease, or have ever had a stomach ulcer or GI (gastro intestinal) bleeding. ?? Follow any rehabilitation exercises your provider gives you. These can help you be more flexible and improve your balance and coordination. This is helpful in preventing long-term ankle problems. Prevention To help prevent ankle sprains, it???s important to have good strength, balance, and flexibility. Be sure to: ?? Always warm up before you exercise or do something very active ?? Be careful when walking or running on uneven or cracked surfaces ?? Wear shoes that are in good condition and fit well ?? Listen to your body???s signals to slow down when you are in pain or tired Follow-up care Any X-rays you had today don???t show any broken bones, breaks, or fractures. Sometimes fractures don???t show up on the first X-ray. Bruises and sprains can sometimes hurt as much as a fracture. Theseinjuries can take time to heal completely. If your symptoms don???t get better or they get worse, talk with your healthcare provider. You may need a repeat X-ray. Follow up with your healthcare provider, or as advised. Check for any warning signs listed below. When to seek medical advice Call your healthcare provider right away??if any of these occur: ?? Fever of 100.4 F (38 C) or higher, or as directed by your healthcare provider ?? The injury doesn???t seem to be healing ?? The swelling comes back ?? The cast has a bad smell ?? The plaster cast or splint gets wet or soft ?? The fiberglass cast or splint gets wet and does not dry for 24 hours ?? The pain or swelling increases, or redness appears ?? Your toes become cold, blue, numb, or tingly ?? The skin is discolored (looks blue, purple, or cagle), has blisters, or is irritated ?? You re-injure your ankle Date Last Reviewed: 01/26/2015 ?? [id number] [employer]. [address] [place] [address], [place] [address]. All rights reserved. This information is not intended as a substitute for professional medical care. Always follow your healthcare professional's instructions. ROOM WORKER documented in this encounter Plan of Treatment Not on filedocumented as of this encounter Goals Goal Patient Goal Associated Recent Patient-Stated? Author Type Problems Progress Blood Pressure Blood 197/101 Yes Myochsner, < 130/80 Pressure (02/21/2020 System Messag e 10:15 AM TANKROOM WORKER) Take at least Blood No Cutura, one BP reading Pressure Precious per week at various times of the day Maintain a low Diet No Cutura, sodium diet Precious Note: [employer] (AHA) guideli francisco recommend less [...] week. documented as of this encounter Results XR ANKLE COMPLETE 3 VIEW RIGHT (05/10/2018 3:39 PM TANKROOM WORKER) Specimen Impressions Performed At [facility] Soft tissue swelling overlying the later al malleolus. Electronically signed by: Candida spain MD Date: 05/10/2018 Time: 15:44 Narrative Performed At EXAMINATION: ODE FLUENCY XR ANKLE COMPLETE 3 VIEW RIGHT CLINICAL HISTORY: Unspecified injury of right ankle, initi al encounter TECHNIQUE: AP, lateral, and oblique images of the r ight ankle were performed. COMPARISON: None FINDINGS: The tibiotalar joint is well aligned. ??There is no fr acture identified, no osseous lesions. ??Soft tissue swelling overlying the lateral malleolus. Procedure Note Interface, Rad Results In - 05/10/2018 3:47 PM TANKROOM WORKER EXAMINATION: XR ANKLE COMPLETE 3 VIEW RIGHT CLINICAL HISTORY: Unspecified injury of right ankle, initi al encounter TECHNIQUE: AP, lateral, and oblique images of the r ight ankle were performed. COMPARISON: None FINDINGS: The tibiotalar joint is well aligned. T here is no fracture identified, no osseous lesions. Soft tissue swelling overlying the lateral malleolus. IMPRESSION: Soft tissue swelling overlying the later al malleolus. Electronically signed by:Candida rome MD Date:05/10/2018 Time:15:44 Performing Organization Address City/State/ZIP Code Phon e Number MMODEL FLUENCY MMODEL FLUENCY n/a documented in this encounter Visit Diagnoses Diagnosis Injury of right ankle, initial encounter - Primary documented in this encounter Administered Medications Inactive Administered Medications - up to 3 most recent administrations Medication Order MAR Action Action Date Dose Rate Site ketorolac injection 30 Given 05/10/2018 3:52 PM 30 mg Left Dorsalgluteal mg TANKROOM WORKER 30 mg, Intramuscular, Clinic/HOD 1 time, On 05/10/18 at 1600, For 1 dose documented in this encounter
--- OUTSIDE RECORDS SUMMARY | 2020-04-15 13:31 | XMS_ITS | Encounter Summary ---
:1975 Author Organization [facility] and It s Subsidiaries and Affiliates Address [address] [place] [address] Care Team Providers Name Role Phone GENTRY [...] Pressure (02/21/2020 System Messag e 10:15 AM JIGSAW OPERATOR) Take at least Blood No Katie, one [...]
--- OUTSIDE RECORDS SUMMARY | 2020-04-15 13:31 | XMS_ITS | Encounter Summary ---
:1975 Author Organization [facility] and It s Subsidiaries and Affiliates Address [address] [place] [address] Care Team Providers Name Role Phone GENTRY Braswell Unavailable Unavailable MD Romario Primary Care Provider gina Moralez II, MD, F. Unavailable Maggy Agustin MD Unavailable Napoleon Loyola MA Unavailable Unavailable Reason for Referral MRI/CAT Scan (Emergency) Status Reason Specialty Diagnoses / Procedures Referred By Sumaya freeman Referred To Contact Closed Radiology Diagnoses Pelvic abscess in female Terra Rhoades MD Procedures CT Abdomen Pelvis With Contrast [place] CT SCAN,ABDOMENT AND PELVIS,W CONTRAST [address] [place] [address] Phone: Electronically signed by Terra Rhoades MD at Reason for Visit Reason Comments Follow-up drainage removal/incision ch jeannette Encounter Details Date Type Department Care Team Description 01/19/2019 Office Visit [facility] - GEOMETRICIAN - Ron Desir MD Pelvic abscess in [place] [address] female (Primary Dx) [address], [address] [place] [address] [place] [address] [place] [phone] Pageant Director: Alia Sauceda Social History Tobacco Use Types [...] Sign Reading Time Taken Comments Blood Pressure 124/78 01/19/2019 9:37 AM E LEARNING SPECIALIST Pulse - - Temperature - - Respiratory Rate - - Oxygen Saturation - - Inhaled Oxygen Concentration - - Weight 123.9 kg (273 lb 4.2 oz) 01/19/2019 9:37 AM E LEARNING SPECIALIST Height 167.6 cm (5' 6) 01/19/2019 9:37 AM E LEARNING SPECIALIST Body Mass Index 44.11 01/19/2019 9:37 AM E LEARNING SPECIALIST documented in this encounter Progress Notes Terra Rhoades MD - 01/19/2019 9:30 AM CST CC: Postoperative visit Remedios Schofield is a 43 y.o. female presents for a f/u after recent admission. Pt s/p TLH/BS??on 12/31/18 at [facility] secondary to uterine fibroids and ovarian cyst. Her postoperative course was complicated by postop pelvic abscess visit s/p IR drainage with drain placement on 01/13/19. Here for f/u. Was discharged with augmentin po. Cultures from drainage- bacteroides. Reports initially had 100cc of drainage--> 60cc--> 30 cc. Has now noticed some black particulate and pain in RLQ 6/10- controlled with pain meds. Denies fever, chills, vaginal bleeding. Flushing drain with 10cc of saline daily. Has appointment with primary air brake mechanic at [facility] this afternoon. BP 124/78 Ht 5' 6 (1.676 m) Wt 123.9 kg (273 lb 4.2 oz) LMP 10/03/2018 BMI 44.11 kg/m?? ROS: GENERAL: No fever, chills, fatigability [...] without significant tenderness INCISION in Right glut. Dressed. No signs of infection. Drainage bag- still with purulent drainage 1. Pelvic abscess in female CT Abdomen Pelvis With Contrast Will place order for re-imaging today. Next plan of care pending imaging results. Will add flagyl for additional anaerobic coverage Terra Rhoades MD, FACOG GEOMETRICIAN Pager: [phone] documented in this encounter Plan of Treatment Scheduled Orders Name Type Priority Associated Diagnoses Order S chedule POCT CREATININE Point of Care Routine Pelvic abscess in [place]: 01/19/2019 Testing-Docked female Device documented as of this encounter Goals Goal Patient Goal Associated Recent Patient-Stated? Author Type Problems Progress Blood Pressure Blood 197/101 Yes [facility], < 130/80 Pressure (02/21/2020 System Messag e 10:15 AM E LEARNING SPECIALIST) Take at least Blood No Cutura, one BP reading Pressure Precious per week at various times of the day Maintain a low Diet No Cutura, sodium diet Precious Note: [place] [employer] (AHA) guideli francisco recommend less [...] week. documented as of this encounter Results CT Abdomen Pelvis With Contrast (01/19/2019 11:46 AM E LEARNING SPECIALIST) Specimen Impressions Performed At [facility] FLUENCY Significant improvement compared to the prior study, t here is less fluid in the pelvic region. ??Residual stranding in th e adjacent fat noted. Hysterectomy. Electronically signed by: Candida spain MD Date: 01/19/2019 Time: 11:53 Narrative Performed At EXAMINATION: [facility] CT ABDOMEN PELVIS WITH CONTRAST CLINICAL HISTORY: Infection, abdomen-pelvis;pelvic abscess s/p IR draina ge placement 01/13/19, new onset pain; Female pelvic inflammatory di sease, unspecified TECHNIQUE: Low dose axial images, sagittal and coronal reformatio ns were obtained from the lung bases to the pubic symphysis following t he IV administration of 100 mL of Omnipaque 350 . ??Oral con trast was not given. COMPARISON: 01/11/2019, 01/13/2019 FINDINGS: The lung bases are clear. ??No liver lesions. ??The ga llbladder appears normal. ??The stomach, pancreas, spleen, adren al glands and bilateral kidneys appear normal. ??The aorta tapers no rmally, no para-aortic lymphadenopathy. ??Moderate stool retentio n. ??The small bowel is not dilated. ??The appendix is normal. ??The bladder appears normal. ??The uterus is removed. ??The ovaries do not appear enlarged. ??There is a percutaneous drain entering from the righ t buttock region, distal tip in the cul de sac there is signific ant less fluid compared to the prior exam. ??There is mild local infl ammatory change. ??The inguinal regions appear normal. ??The osseous st ructures demonstrate no osseous lesions, there is facet joint d egenerative change at L4-5 and L5-S1. Procedure Note Interface, Rad Results In - 01/19/2019 1 1:56 AM E LEARNING SPECIALIST EXAMINATION: CT ABDOMEN PELVIS WITH CONTRAST CLINICAL HISTORY: Infection, abdomen-pelvis;pelvic abscess s/p IR drainage placement 01/13/19, new onset pain; Female pelvic inflammatory disease, unspecified TECHNIQUE: Low dose axial images, sagittal and fidelia nal reformations were obtained from the lung bases to the pubic symphysis following the IV administration of 100 mL of Omnipaque 350 . Oral contrast was not given. COMPARISON: 01/11/2019, 01/13/2019 FINDINGS: The lung bases are clear. No liver lesi ons. The gallbladder appears normal. The stomach, pancreas, spleen, adrenal glands and bilateral kidneys appear normal. The aorta tapers normally, no para-aortic lymphadenopathy. Moderate stool retenti on. The small bowel is not dilated. The appendix is normal. The bladder appears normal. The uterus is removed. The ovaries do not appear enlarged. There is a percutaneous drain entering from the right buttock re gion, distal tip in the cul de sac there is significant less fluid compared to the prior exam. There is mild local inflammatory change. The inguinal regions appear normal. The osseous structures demonstrate no osseou s lesions, there is facet joint degenerative change at L4-5 and L5-S1. Impression: Significant improvement compared to the prior study, there is less fluid in the pelvic region. Residual stranding in the adjacent fat noted. Hysterectomy. Electronically signed by:Candida rome MD Date:01/19/2019 Time:11:53 Performing Organization Address City/State/ZIP Code Phon e Number MMODEL FLUENCY MMODEL FLUENCY n/a documented in this encounter Visit Diagnoses Diagnosis Pelvic abscess in female - Primary documented in this encounter
--- OUTSIDE RECORDS SUMMARY | 2020-04-15 13:31 | XMS_ITS | Encounter Summary ---
:1975 Author Organization [facility] and s Subsidiaries and Affiliates Address [address] [place] [address] Care Team Providers Name Role Phone GENTRY [...] MD Procedures CT Abdomen Pelvis With Contrast [place] CT SCAN,ABDOMENT AND PELVIS,W CONTRAST [address] [place] [address] Phone: Electronically signed by Terra Rhoades MD at Reason for Visit MRI/CAT Scan (Emergency) Status Reason Specialty Diagnoses / Procedures Referred By Sumaya freeman Referred To Contact Closed Radiology Diagnoses Pelvic abscess in female Terra Rhoades MD Procedures CT Abdomen Pelvis With Contrast [place] CT SCAN,ABDOMENT AND PELVIS,W CONTRAST [address] [place] [address] Phone: Encounter Details Date Type Department Care Team Description 01/19/2019 Hospital Encounter [facility] - Terra Soares Pelvi c abscess in [facility] MD female [address] [place] [phone] Social History Tobacco Use Types Packs/Day Years [...] Sig Dispensed Refills Start Date End Date metoprolol succinate Take 1 tablet (50 30 tablet 3 01/20/20 (TOPROL-XL) 50 MG 24 hr mg total) by mouth tablet once daily. amoxicillin-clavulanate Take 1 tablet by 14 tablet 0 201801/26/2019 875-125mg (AUGMENTIN) mouth every 12 875-125 mg per tablet (twelve) hours. for 7 days metroNIDAZOLE (FLAGYL) 500 Take 1 tablet (500 14 tablet 0 1 03/21/2018 01/26/2019 MG tablet mg total) by mouth every 12 (twelve) hours. for 7 days aspirin (ECOTRIN) 81 MG EC Take 81 [...] Pressure (02/21/2020 System Messag e 10:15 AM CHAIN OFFBEARER) Take at least Blood No Cutura, one BP reading Pressure Precious per week at various times of the day Maintain a low Diet No Cutura, sodium diet Precious Note: [place] [employer] (AHA) guideli francisco recommend less [...] Name Priority Date/Time Associated Diagnosis Comme nts CT ABDOMEN PELVIS STAT 01/19/2019 11:46 AM Pelvic abscess i n Results for this WITH CONTRAST CHAIN OFFBEARER female procedure are in the results section. documented in this encounter Results CT Abdomen Pelvis With Contrast (01/19/2019 11:46 AM CHAIN OFFBEARER) Specimen Impressions Performed At [facility] FLUENCY Significant improvement compared to the prior study, t here is less fluid in the pelvic region. ??Residual stranding in th e adjacent fat noted. Hysterectomy. Electronically signed by: Candida spain MD Date: 01/19/2019 Time: 11:53 Narrative Performed At EXAMINATION: [facility] CT ABDOMEN PELVIS WITH CONTRAST CLINICAL HISTORY: [...] Results In - 01/19/2019 1 1:56 AM CHAIN OFFBEARER EXAMINATION: CT ABDOMEN PELVIS WITH CONTRAST CLINICAL [...] Visit Diagnoses Diagnosis Pelvic abscess in female documented in this encounter Administered Medications Inactive Administered Medications - up to 3 most recent administrations Medication Order MAR Action Action Date Dose Rate Site iohexol (OMNIPAQUE 350) Given 01/19/2019 11:41 AM CHAIN OFFBEARER 100 mLs injection 100 mL 100 mL, Intravenous, IMG once as needed, contrast, Starting on Thu01/19/19 at 1239, For 1 dose documented in this encounter
--- OUTSIDE RECORDS SUMMARY | 2020-04-15 13:31 | XMS_ITS | Encounter Summary ---
:1975 Author Organization [facility] and It s Subsidiaries and Affiliates Address [facility] [place] [address] Care Team Providers Name Role Phone NILO Braswell Unavailable Unavailable MD Romario Primary Care Provider gina Moralez II, MD, F. Unavailable Maggy Agustin MD Unavailable Napoleon Loyola MA Unavailable Unavailable Reason for Visit Reason Comments Abdominal Pain Reports laparoscopic Hystere ctomy on 12/31. Reports since the surgery has been having fevers and w as placed on Cipro 500mg. States pain became intolerable around 14 00. 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 Auth/Cert Status Reason Specialty Diagnoses / Referred By Referred To Procedures Contact Contact Emergency Medicine Diagnoses Post op infection T81.40XA (ICD-10-CM) - Post op infection [facility] Emergenc y Procedures ADMIT TO INPATIENT ADT9 - ADMIT TO INPATIENT AREA Department [address] [place] [address] Toni Walker [phone] Phone: Fax: Encounter Details Date Type Department Care Team Description [facility]11[facility]2019 [facility] [address] [place] [address] Pelvic abscess in female (Primary Dx); 01/14/[address] MD [address] [place] [address] [phone] Sepsis; [address] Post op i nfection; Ave Abscess; [place] Prediabetes [id number] Social History Tobacco Use Types Packs/Day [...] or relatives? How often do you attend orthodox or 1 to 4 times per year 10/08 tenriism services? Do you belong to any clubs or No 10/30/2018 organizations such as orthodox groups, unions, fraternal or athletic groups, or [...] Sign Reading Time Taken Comments Blood Pressure 135/72 01/14/2019 4:22 PM FACIAL OPERATOR Pulse 78 01/14/2019 4:22 PM FACIAL OPERATOR Temperature 36.8 ??C (98.2 ??F) 01/14/2019 4:22 PM FACIAL OPERATOR Respiratory Rate 16 01/14/2019 4:22 PM FACIAL OPERATOR Oxygen Saturation 97% 01/14/2019 7:40 AM FACIAL OPERATOR Inhaled Oxygen Concentration - - Weight 123.6 kg (272 lb 7.8 oz) 01/11/2019 9:23 PM FACIAL OPERATOR Height 167.6 cm (5' 6) 01/11/2019 9:23 PM FACIAL OPERATOR Body Mass Index 43.98 01/11/2019 9:23 PM FACIAL OPERATOR documented in this encounter Discharge Summaries Terra Rhoades MD - 01/14/2019 4:19 PM CST [facility] Obstetrics & Gynecology Discharge Summary Patient Name: Remedios Schofield Admission Date: 01/11/2019 Hospital Length of Stay: 3 days Discharge Date and Time: 01/14/2019 4:19 PM Attending Physician: Terra Rhoades MD Discharging Provider: Terra Rhoades MD Primary Care Provider: Theresa Doss MD Hospital Course: Pt is a 43 y/o F s/p TLH/BS on 12/31/18 at [facility] secondary to uterine fibroids and ovarian cyst. She presented to ED with complaint of abdominal pain and fevers since POD#2. Was recently treated for UTI with cipro but pain and fevers persisted prompting ED visit. workup significant for leukocytosis and pelvic abscess on CT scan. Pt was given 48hr of IV antibiotics with appropriate response prior to IR drainage (right glut) on 01/13/19. Cultures pending. Pt discharged in stable condition on antibiotics with close f/u on Thursday to evaluate possibility of drain removal (<10mL day). Forward flush drain with 10Ml of sterile NS daily. Family instructed on wound care. Pt remained afebrile during hospitilization * No surgery found * Consults: Consults (From admission, onward) Status Ordering Provider Inpatient consult to Interventional Radiology Once Provider: (Not yet assigned) KARLENE Everett Significant Diagnostic Studies: Labs: CBC Recent Labs Lab 01/13/19 0710 01/14/19 0629 WBC 11.64 11.50 HGB 9.8* 10.2* HCT 32.3* 33.7* PLT 539* 601* Pending Diagnostic Studies: None Final Active Diagnoses: Diagnosis Date Noted POA ??? PRINCIPAL PROBLEM: Postoperative infection [T81.40XA] 01/11/2019 Yes ??? Post op infection [T81.40XA] 01/11/2019 Yes ??? Morbid obesity [E66.01] 03/26/2018 Yes ??? Essential hypertension [I10] 11/27/2016 Yes ??? A-fib [I48.91] Yes Problems Resolved During this Admission: Discharged Condition: good Disposition: Home or Self Care Follow Up: Follow-up Information Theresa Doss MD. Specialty: Internal Medicine Contact information: [address] [place] [address] Terra Rhoades MD On 01/17/2019. Specialties: Obstetrics, Obstetrics and Gynecology Why: Incision check Contact information: [address] [place] [address] Patient Instructions: Diet diabetic Pelvic Rest Notify your health care provider if you experience any of the following: temperature >100.4 Notify your health care provider if you experience any of the following: persistent nausea and vomiting or diarrhea Notify your health care provider if you experience any of the following: severe uncontrolled pain Notify your health care provider if you experience any of the following: redness, tenderness, or signs of infection (pain, swelling, redness, odor or green/yellow discharge around incision site) Notify your health care provider if you [...] of the following: increased confusion or weakness Leave dressing on - Keep it clean, dry, and intact until clinic visit Change dressing (specify) Order Comments: Flush drainage tubing As needed Activity as tolerated Medications: Reconciled Home Medications: Medication List START taking these medications amoxicillin-clavulanate 875-125mg 875-125 mg per tablet Commonly known as: AUGMENTIN Take 1 tablet by mouth every 12 (twelve) hours. for 10 days oxyCODONE-acetaminophen 10-325 mg per tablet Commonly known as: PERCOCET Take 1 tablet by mouth every 6 (six) hours as needed. CHANGE how you take these medications aspirin 81 MG EC tablet Commonly known as: ECOTRIN Take 81 mg by mouth. What changed: Another medication with the same name was removed. Continue taking this medication, and follow the directions you see here. hydroCHLOROthiazide 12.5 MG Tab Commonly known as: HYDRODIURIL Take 1 tablet (12.5 mg total) by mouth once daily. What changed: Another medication with the same name was removed. Continue taking this medication, and follow the directions you see here. metFORMIN 500 MG 24 hr tablet Commonly known as: GLUCOPHAGE-XR Take 1 tablet (500 mg total) by mouth before dinner. What changed: Another medication with the same name was removed. Continue taking this medication, and follow the directions you see here. metoprolol succinate 50 MG 24 hr tablet Commonly known as: TOPROL-XL Take 1 tablet (50 mg total) by mouth once daily. What changed: Another medication with the same name was removed. Continue taking this medication, and follow the directions you see here. CONTINUE taking these medications flecainide 150 MG Tab Commonly known as: TAMBOCOR Take 1 tablet (150 mg total) by mouth continuous prn. Take 2 tablets for atrial fibrillation naproxen 500 MG tablet Commonly known as: NAPROSYN Take 1 tablet (500 mg total) by mouth 2 (two) times daily with meals. STOP taking these medications HYDROcodone-acetaminophen 5-325 mg per tablet Commonly known as: NORCO medroxyPROGESTERone 10 MG tablet Commonly known as: PROVERA Terra Rhoades MD Obstetrics & Gynecology [facility] documented in this encounter Discharge Instructions AttachmentsThe following attachments cannot be sent through Care Everywhere. Amoxicillin; Clavulanic Acid tablets (Cameroonian)Acetaminophen; Oxycodone tablets (Cameroonian)Diabetes, Healthy Meals for (Cameroonian)Diabetes, Carbohydrates, Fats, and Protein, Understanding (Cameroonian)Bladder Infection, Female (Adult) (Cameroonian) documented in this encounter Medications at Time of Discharge Medication Sig Dispensed Refills Start Date End Date amoxicillin-clavulanate Take 1 tablet by 20 tablet 0 201801/19/2019 875-125mg (AUGMENTIN) mouth every 12 875-125 mg per tablet (twelve) hours. for 10 days aspirin (ECOTRIN) 81 MG EC Take 81 mg by 0 01/06/2020 tablet mouth. flecainide (TAMBOCOR) 150 Take 1 tablet (150 20 tablet 11 08/11/2019 MG Tab mg total) by mouth continuous prn. Take 2 tablets for atrial fibrillation hydroCHLOROthiazide Take 1 tablet (12.5 30 tablet 11 019 01/19/2019 (HYDRODIURIL) 12.5 MG mg total) by mouth TabIndications: Essential once daily. hypertension metFORMIN (GLUCOPHAGE-XR) Take 1 tablet (500 90 tablet 3 01/19/2019 500 MG 24 hr tablet mg total) by mouth before dinner. metoprolol succinate Take 1 tablet (50 90 tablet 3 04/19/19 19 01/19/2019 (TOPROL-XL) 50 MG 24 hr mg total) [...] documented as of this encounter Progress Notes Terra Rhoades MD - 01/14/2019 6:09 AM CST [facility] Obstetrics & Gynecology Progress Note Patient Name: Remedios Schofield Admission Date: 01/11/2019 Primary Care Provider: Theresa Doss MD Principal Problem: Postoperative infection Subjective: Interval History: Pt did ok overnight- POD#1 s/p IR drainage of pelvic abscess. 30cc output. Pain controlled with meds. Denies fevers/chills/CP/SOB. Scheduled Meds: ??? hydroCHLOROthiazide 12.5 mg Oral Daily ??? metoprolol succinate 50 mg Oral Daily ??? piperacillin-tazobactam (ZOSYN) IVPB 4.5 g Intravenous Q8H Continuous Infusions: PRN Meds:Dextrose 10% Bolus, Dextrose 10% Bolus, glucagon (human recombinant), glucose, glucose, HYDROmorphone, insulin aspart U-100, ondansetron, oxyCODONE- acetaminophen, oxyCODONE-acetaminophen, promethazine (PHENERGAN) IVPB, sodium chloride 0.9% Review of patient's allergies indicates: No Known Allergies Objective: Vital Signs (Most Recent): Temp: 98.4 ??F (36.9 ??C) (01/14/19527) Pulse: 80 (01/14/19527) Resp: 18 (01/14/19527) BP: 124/65 (01/14/19527) SpO2: 96 % (01/14/19 0400) Vital Signs (24h Range): Temp: [97.2 ??F (36.2 ??C)-98.8 ??F (37.1 ??C)] 98.4 ??F (36.9 ??C) Pulse: [65-85] 80 Resp: [16-19] 18 SpO2: [96 %-100 %] 96 % BP: (124-150)/(45-98) 124/65 Weight: 123.6 kg (272 lb 7.8 oz) Body mass index is 43.98 kg/m??. Patient's last menstrual period was 10/03/2018. I&O (Last 24H): Intake/Output Summary (Last 24 hours) at 01/14/2019 0609 Last data filed at 01/14/2019 0500 Gross per 24 hour Intake 2485 ml Output 710 ml Net 1775 ml Physical Exam: Constitutional: She is oriented to person, place, and time. She appears well- developed and well-nourished. No distress. HENT: Head: Normocephalic and atraumatic. Cardiovascular: Normal rate, regular rhythm and normal heart sounds. Pulmonary/Chest: Effort normal and breath sounds normal. She has no wheezes. She has no rales. Abdominal: Soft. Bowel sounds are normal. Genitourinary: Genitourinary Comments: Drain in place- R glut. No signs of infection around site ~ scant purulent/blood tinged fluid in collection bag. Musculoskeletal: Moves all extremeties. She exhibits no edema. Neurological: She is alert and oriented to person, place, and time. She has normal reflexes. Skin: Skin is warm and dry. Psychiatric: She has a normal mood and affect. Laboratory: CBC: Recent Labs Lab 01/13/19 0710 WBC 11.64 RBC 3.84* HGB 9.8* HCT 32.3* PLT 539* MCV 84 MCH 25.5* MCHC 30.3* CBC: 01/11/2019 16:32 01/12/2019 05:46 01/13/2019 07:10 WBC 23.19 (H) 15.88 (H) 11.64 RBC 4.18 3.80 (L) 3.84 (L) Hemoglobin 11.1 (L) 10.0 (L) 9.8 (L) Hematocrit 34.9 (L) 32.2 (L) 32.3 (L) MCV 84 85 84 MCH 26.6 (L) 26.3 (L) 25.5 (L) MCHC 31.8 (L) 31.1 (L) 30.3 (L) RDW 13.9 13.9 13.8 Platelets 513 (H) 477 (H) 539 (H) Assessment/Plan: Active Diagnoses: Diagnosis Date Noted POA ??? PRINCIPAL PROBLEM: Postoperative infection [T81.40XA] 01/11/2019 Yes ??? Post op infection [T81.40XA] 01/11/2019 Yes ??? Morbid obesity [E66.01] 03/26/2018 Yes ??? Essential hypertension [I10] 11/27/2016 Yes ??? A-fib [I48.91] Yes Problems Resolved During this Admission: 1. Post op infection -POD#1 s/p IR drainage. >48hr of IV antibiotics since admission. Will transition to po augmentin after AM dose. Awaiting final culture results and sensitivities. AM CBC pending. Discussed criteria for discharge with close f/u on Thursday. Pt family Already instructed on wound care. 2. Afib -continue home metoprolol 50mg Qday ?? 3. HTN -continue home HCTZ 12.5mg 4. Diabetes. Hba1c- 6.5 this AM, diabetic diet ordered along with accucheck/SSI as indicated. Will need to restart metformin upon discharge. DVT- prophylaxis and Pepcid ordered. Discussed POC with family at bedside. All questions answered Terra Rhoades MD Obstetrics & Gynecology [facility] Karlene Alcazar MD - 01/13/2019 5:08 PM CSTPatient states she is having a lot of pain from procedure. Diabetic diet restarted. Will watch drainto see when there is a decline in output. Karlene Alcazar MD - 01/13/2019 9:20 AM CST [facility] Obstetrics & Gynecology Progress Note Patient Name: Remedios Schofield Admission Date: 01/11/2019 Primary Care Provider: Theresa Doss MD Principal Problem: Postoperative infection Subjective: Interval History: No fever. Has continued to leak drainage from vagina. No BM since Thursday. Wants togo home if possible. NPO for possible IR drainage of abscess today. Scheduled Meds: ??? hydroCHLOROthiazide 12.5 mg Oral Daily ??? metoprolol succinate 50 mg Oral Daily ??? piperacillin-tazobactam (ZOSYN) IVPB 4.5 g Intravenous Q8H Continuous Infusions: PRN Meds:Dextrose 10% Bolus, Dextrose 10% Bolus, glucagon (human recombinant), glucose, glucose, HYDROmorphone, insulin aspart U-100, ondansetron, oxyCODONE- acetaminophen, oxyCODONE-acetaminophen, promethazine (PHENERGAN) IVPB, sodium chloride 0.9% Review of patient's allergies indicates: No Known Allergies Objective: Vital Signs (Most Recent): Temp: 97.2 ??F (36.2 ??C) (01/13/19 1057) Pulse: 65 (01/13/19 1201) Resp: 19 (01/13/19 1057) BP: 127/65 (01/13/19 1057) SpO2: 98 % (01/13/19 1156) Vital Signs (24h Range): Temp: [96.8 ??F (36 ??C)-99.3 ??F (37.4 ??C)] 97.2 ??F (36.2 ??C) Pulse: [65-96] 65 Resp: [16-19] 19 SpO2: [97 %-100 %] 98 % BP: (114-137)/(58-96) 127/65 Weight: 123.6 kg (272 lb 7.8 oz) Body mass index is 43.98 kg/m??. Patient's last menstrual period was 10/03/2018. I&O (Last 24H): Intake/Output Summary (Last 24 hours) at 01/13/2019 1208 Last data filed at 01/13/2019 0040 Gross per 24 hour Intake 860 ml Output 515 ml Net 345 ml Physical Exam: Constitutional: She appears well-developed and well-nourished. No distress. Cardiovascular: Normal rate, regular rhythm and normal heart sounds. Pulmonary/Chest: Effort normal and breath sounds normal. Abdominal: Soft. Bowel sounds are normal. She exhibits no distension. There is no tenderness. Laboratory: CBC: Recent Labs Lab 01/13/19 0710 WBC 11.64 RBC 3.84* HGB 9.8* HCT 32.3* PLT 539* MCV 84 MCH 25.5* MCHC 30.3* Diagnostic Results: Labs: Reviewed CBC Assessment/Plan: Active Diagnoses: Diagnosis Date Noted POA ??? PRINCIPAL PROBLEM: Postoperative infection [T81.40XA] 01/11/2019 Yes ??? Post op infection [T81.40XA] 01/11/2019 Yes ??? Morbid obesity [E66.01] 03/26/2018 Yes ??? Essential hypertension [I10] 11/27/2016 Yes ??? A-fib [I48.91] Yes Problems Resolved During this Admission: 1. Post op infection -Continue with zosyn Q 8hrs.??Blood cultures pending, daily cbc. NPO after midnight awaiting IR drainage ?? 2. Afib -continue??home metoprolol 50mg Qday ?? 3. HTN -continue home HCTZ 12.5mg ?? 4. Hba1c results as 6.5 this AM, diabetic diet ordered along with accucheck/SSI as indicated. Will need to restart metformin upon discharge. ?? DVT- prophylaxis and Pepcid ordered. Discussed POC with family at bedside. All questions answered Karlene Koroma MD Obstetrics & Gynecology [facility] erra Rhoades MD - 01/12/2019 7:30 AM CST [facility] Obstetrics & Gynecology Progress Note Patient Name: Remedios Schofield Admission Date: 01/11/2019 Primary Care Provider: Theresa Doss MD Principal Problem: Postoperative infection Subjective: Interval History: Pt did ok overnight. States pain not really alleviated with dilaudid IV. Denies fevers. Overall feels better. Reports overnight had a gush of vaginal discharge. No bleeding. Scheduled Meds: ??? hydroCHLOROthiazide 12.5 mg Oral Daily ??? metoprolol succinate 50 mg Oral Daily ??? piperacillin-tazobactam (ZOSYN) IVPB 4.5 g Intravenous Q8H Continuous Infusions: PRN Meds:Dextrose 10% Bolus, Dextrose 10% Bolus, glucagon (human recombinant), glucose, glucose, HYDROmorphone, insulin aspart U-100, ketorolac, ondansetron, oxyCODONE-acetaminophen, oxyCODONE-acetaminophen, promethazine (PHENERGAN) IVPB, sodium chloride 0.9% Review of patient's allergies indicates: No Known Allergies Objective: Vital Signs (Most Recent): Temp: 96.8 ??F (36 ??C) (01/12/19 1300) Pulse: 96 (01/12/19 1552) Resp: 18 (01/12/19 1300) BP: 131/81 (01/12/19 1300) SpO2: 99 % (01/12/19 1018) Vital Signs (24h Range): Temp: [96.6 ??F (35.9 ??C)-98.4 ??F (36.9 ??C)] 96.8 ??F (36 ??C) Pulse: [68-96] 96 Resp: [15-23] 18 SpO2: [98 %-100 %] 99 % BP: (127-155)/(66-88) 131/81 Weight: 123.6 kg (272 lb 7.8 oz) Body mass index is 43.98 kg/m??. Patient's last menstrual period was 10/03/2018. I&O (Last 24H): Intake/Output Summary (Last 24 hours) at 01/12/2019 1635 Last data filed at 01/12/2019 0505 Gross per 24 hour Intake 2700 ml Output 1100 ml Net 1600 ml Physical Exam: Constitutional: She is oriented to person, place, and time. She appears well- developed and well-nourished. No distress. HENT: Head: Normocephalic and atraumatic. Cardiovascular: Normal rate, regular rhythm and normal heart sounds. Pulmonary/Chest: Effort normal and breath sounds normal. She has no wheezes. She has no rales. Abdominal: Soft. Bowel sounds are normal. Genitourinary: Genitourinary Comments: Scant discharge on pad/no odor Musculoskeletal: Moves all extremeties. She exhibits no edema. Neurological: She is alert and oriented to person, place, and time. She has normal reflexes. Skin: Skin is warm and dry. Psychiatric: She has a normal mood and affect. Laboratory: CBC: Recent Labs Lab 01/12/19 0546 WBC 15.88* RBC 3.80* HGB 10.0* HCT 32.2* PLT 477* MCV 85 MCH 26.3* MCHC 31.1* CBC 01/11/2019 16:32 01/12/2019 05:46 WBC 23.19 (H) 15.88 (H) RBC 4.18 3.80 (L) Hemoglobin 11.1 (L) 10.0 (L) Hematocrit 34.9 (L) 32.2 (L) MCV 84 85 MCH 26.6 (L) 26.3 (L) MCHC 31.8 (L) 31.1 (L) RDW 13.9 13.9 Platelets 513 (H) 477 (H) MPV 9.7 9.6 Assessment/Plan: Active Diagnoses: Diagnosis Date Noted POA ??? PRINCIPAL PROBLEM: Postoperative infection [T81.40XA] 01/11/2019 Yes ??? Post op infection [T81.40XA] 01/11/2019 Yes ??? Morbid obesity [E66.01] 03/26/2018 Yes ??? Essential hypertension [I10] 11/27/2016 Yes ??? A-fib [I48.91] Yes Problems Resolved During this Admission: 1. Post op infection -Continue with zosyn Q 8hrs. Blood cultures pending, daily cbc. Will make NPO after midnight in caseof need of IR drainage in AM. ?? 2. Afib -continue home metoprolol 50mg Qday ?? 3. HTN -continue home HCTZ 12.5mg 4. Hba1c results as 6.5 this AM, diabetic diet ordered along with accucheck/SSI as indicated. Will need to restart metformin upon discharge. DVT- prophylaxis and Pepcid ordered. Discussed POC with family at bedside. All questions answered Terra Rhoades MD Obstetrics & Gynecology [facility] Judi Patel, PharmD - 01/11/2019 4:38 PM FACIAL OPERATOR Pharmacokinetic Initial Assessment: IV Vancomycin Assessment/Plan: Initiate intravenous vancomycin with loading dose of 2000 mg once Desired empiric serum trough concentration is 15 to 20 mcg/mL Draw vancomycin Pharmacy will continue to follow and monitor vancomycin. Please contact pharmacy at extension [phone] with any questions regarding this assessment. Thank you for the consult, Judi Levine Patient brief summary: Remedios Schofield is a 43 y.o. female initiated on antimicrobial therapy with IV Vancomycin for treatment of suspected sepsis Drug Allergies: Review of patient's allergies indicates: No Known Allergies Actual Body Weight: 122kg Renal Function: CrCl cannot be calculated (Patient's most recent lab result is older than the maximum 7 days allowed.)., Dialysis Method (if applicable): N/A CBC (last 72 hours): No results for input(s): WHITE BLOOD CELL COUNT, HEMOGLOBIN, HEMATOCRIT, PLATELETS, GRAN%, LYMPH%, MONO%, EOSINOPHIL%, BASOPHIL%, DIFFERENTIAL METHOD in the last 72 hours. Metabolic Panel (last 72 hours): No results for input(s): SODIUM, POTASSIUM, CHLORIDE, CO2, GLUCOSE, BUN BLD, CREATININE, ALBUMIN, BILIRUBIN TOTAL, ALK PHOS, AST, ALT, MAGNESIUM, PHOSPHORUS in the last 72 hours. Drug levels (last 3 results): No results for input(s): VANCOMYCINRA, VANCOMYCINPE, VANCOMYCINTR in the last 72 hours. Microbiologic Results: Microbiology Results (last 7 days) Procedure Component Value Units Date/Time Blood culture x two cultures. Draw prior to antibiotics. [[id number]] Collected: 01/11/19 163 Order Status: Sent Specimen: Blood from Peripheral, Antecubital, Right Updated: 01/11/19 1633 Blood culture x two cultures. Draw prior to antibiotics. [[id number]] Collected: 01/11/19 163 Order Status: Sent Specimen: Blood from Peripheral, Antecubital, Left Updated: 01/11/19 163 Influenza A & B by Molecular [[id number]] Order Status: No result Specimen: Nasopharyngeal Swab AL OPERATOR documented in this encounter H&P Notes Terra Rhoades MD - 01/11/2019 7:56 PM CST [facility] Obstetrics & Gynecology History & Physical Patient Name: Remedios Schofield Admission Date: 01/11/2019 Primary Care Provider: Theresa Doss MD Subjective: Chief Complaint/Reason for Admission: post op infection. History of Present Illness: Pt is a 43 y/o F s/p TLH/BS on 12/31/18 at [facility] secondary to uterine fibroids and ovarian cyst. She presented to ED with complaint of abdominal pain and fevers since POD#2.Was recently treated for UTI with cipro but pain and fevers persisted prompting visit today. Work-upin ED significant for leukocytosis- wbc [address] scan findings of suggestive of pelvic abscess.PMHX significant for HTN , afib, prediabetes. Denies vaginal bleeding, dysuria, problems with incision. No CP/SOB. Pain is positional as well. No current facility-administered medications on file prior [...] mg total) by mouth once daily. ??? HYDROcodone-acetaminophen (NORCO) 5-325 mg per tablet Take 1 tablet by mouth every 4 (four) hours as needed for Pain. ??? metFORMIN (GLUCOPHAGE-XR) 500 MG 24 hr tablet Take 1 tablet (500 mg total) by mouth before dinner. ??? metoprolol succinate (TOPROL-XL) 50 MG 24 hr tablet Take 1 tablet (50 mg total) by mouth once daily. ??? naproxen (NAPROSYN) 500 MG tablet Take 1 tablet (500 mg total) by mouth 2 (two) times daily withmeals. ??? [DISCONTINUED] aspirin (ECOTRIN) 81 MG EC tablet Take 81 mg by mouth once daily. ??? [DISCONTINUED] hydroCHLOROthiazide (HYDRODIURIL) 12.5 MG Tab Take 12.5 mg by mouth. ??? [DISCONTINUED] medroxyPROGESTERone (PROVERA) 10 MG tablet Bid ??? [DISCONTINUED] medroxyPROGESTERone (PROVERA) 10 MG tablet Bid ??? [DISCONTINUED] metFORMIN (GLUCOPHAGE-XR) 500 MG 24 hr tablet Take 500 mg by mouth. ??? [DISCONTINUED] metoprolol succinate (TOPROL-XL) 50 MG 24 hr tablet Take 50 mg by mouth. Review of patient's allergies indicates: No Known Allergies Past Medical History: Diagnosis Date ??? A-fib ??? Atrial fibrillation 1982 ??? Atrial fibrillation ??? Bronchitis ??? Fibroid, uterine ??? Hypertension OB History Para Term AB Living 1 1 0 0 0 SAB TAB Ectopic Multiple Live Births 0 0 0 # Outcome Date GA Lbr [place]/2nd Weight Sex Delivery Anes PTL Lv 1 Para Past Surgical History: Procedure Laterality Date ??? MYOMECTOMY 2015 fibroids Family History Problem Relation (Age of Onset) [...] Sexual activity: Yes Partners: Male control/protection: None Review of Systems Constitutional: Positive for fatigue and fever. HENT: Negative. Eyes: Negative. Respiratory: Negative for cough and shortness of breath. Cardiovascular: Negative for chest pain. Gastrointestinal: Negative for blood in stool, diarrhea, nausea and vomiting. Endocrine: Negative. Genitourinary: Negative for dysuria and vaginal bleeding. Integumentary: Negative. Neurological: Negative for syncope, numbness and headaches. Psychiatric/Behavioral: Negative. Objective: Vital Signs (Most Recent): Temp: 98.4 ??F (36.9 ??C) (01/11/19 1758) Pulse: 88 (01/11/191904) Resp: (!) 23 (01/11/191904) BP: (!) 147/87 (01/11/191904) SpO2: 98 % (01/11/191904) Vital Signs (24h Range): Temp: [98.4 ??F (36.9 ??C)-99.1 ??F (37.3 ??C)] 98.4 ??F (36.9 ??C) Pulse: [88-110] 88 Resp: [20-24] 23 SpO2: [98 %-100 %] 98 % BP: (147-204)/(78-91) 147/87 Weight: 122 kg (269 lb) Body mass index is 43.42 kg/m??. No LMP recorded. Physical Exam: Constitutional: She is oriented to person, place, and time. She appears well- developed and well-nourished. No distress. HENT: Head: Normocephalic and atraumatic. Cardiovascular: Normal rate. Pulmonary/Chest: Effort normal and breath sounds normal. She has no wheezes. She has no rales. Abdominal: Soft. Bowel sounds are normal. She exhibits no distension. Incisions healing well no signs of infection at incision site. Normoactive bowel sounds, TTP mainly LLQ >RLQ. No rebound or guarding s/p pain meds in ED Genitourinary: Genitourinary Comments: Pelvic deferred Musculoskeletal: Moves all extremeties. She exhibits no edema. Neurological: She is alert and oriented to person, place, and time. She has normal reflexes. Skin: Skin is warm and dry. Psychiatric: She has a normal mood and affect. Laboratory: CBC: Recent Labs Lab 01/11/19 1632 WBC 23.19* RBC 4.18 HGB 11.1* HCT 34.9* PLT 513* MCV 84 MCH 26.6* MCHC 31.8* CMP: Recent Labs Lab 01/11/19 1632 GLU 133* CALCIUM 9.9 ALBUMIN 3.2* PROT 8.3 NA 139 K 3.8 CO2 27 CL 101 BUN 7 CREATININE 0.9 ALKPHOS 267* ALT 47* AST 25 BILITOT 0.6 Recent Labs Lab 01/11/19 1651 COLORU Yellow SPECGRAV <=1.005* PHUR 6.0 PROTEINUA Negative BACTERIA Few* NITRITE Negative LEUKOCYTESUR 1+* UROBILINOGEN Negative Diagnostic Results: Imaging Results X-Ray Chest AP Portable (Final result) Result time 01/11/19 17:28:06 Final result by Maureen Calvin MD (01/11/19 17:28:06) Impression: No acute cardiopulmonary process identified. Electronically signed by: Maureen Calvin MD Date: 01/11/2019 Time: 17:28 Narrative: EXAMINATION: XR CHEST AP PORTABLE CLINICAL HISTORY: Sepsis; TECHNIQUE: Single frontal view of the chest was performed. COMPARISON: 10/30/2018. FINDINGS: Cardiac silhouette is normal in size. Lungs are symmetrically expanded. No evidence of focal consolidative process, pneumothorax, or significant effusion. No acute osseous abnormality identified. CT Abdomen Pelvis Without Contrast (Final result) Result time 01/11/19 17:22:28 Final result by Maureen Calvin MD (01/11/19 17:22:28) Impression: Postsurgical changes of recent hysterectomy with two air and fluid collections versus larger multilocular collection seen within the lower pelvis and left adnexal region likely reflecting developing abscess. Electronically signed by: Maureen Calvin MD Date: 01/11/2019 Time: 17:22 Narrative: EXAMINATION: CT ABDOMEN PELVIS WITHOUT CONTRAST CLINICAL HISTORY: Infection, abdomen-pelvis; TECHNIQUE: Low dose axial images, sagittal and coronal reformations were obtained from the lung bases to the pubic symphysis. Oral contrast was not administered. COMPARISON: CT abdomen and pelvis from 10/30/2018. FINDINGS: The visualized portion of the heart is unremarkable. The lung bases are clear. No significant hepatic abnormality seen on this noncontrast exam. There is no intra-or extrahepaticbiliary ductal dilatation. The gallbladder is unremarkable. The stomach, pancreas, spleen, and adrenal glands are unremarkable. Kidneys show no evidence of stones or hydronephrosis. Ureters are difficult to track. Urinary bladder wall thickening is seen, noting nondistention. Postsurgical changes of recent hysterectomy are seen with significant inflammatory changes are seen within the left lower quadrant. There are 2 separate versus larger multilocular air and fluid collection suggestive for developing abscess. These measure 6.0 x 4.5 cm inferiorly within the pelvis and 4.0 x 3.5 cm within the left adnexal region. Few scattered colonic diverticula are seen in the region. No evidence of abnormal small bowel dilatation or obstruction. Appendix is visualized and is unremarkable. No significant free fluid seen. Aorta tapers normally. No acute osseous abnormality identified. Subcutaneous soft tissue structures are unremarkable. Assessment/Plan: Active Diagnoses: Diagnosis Date Noted POA ??? PRINCIPAL PROBLEM: Postoperative infection [T81.40XA] 01/11/2019 Yes ??? Post op infection [T81.40XA] 01/11/2019 Yes ??? Morbid obesity [E66.01] 03/26/2018 Yes ??? Essential hypertension [I10] 11/27/2016 Yes ??? A-fib [I48.91] Yes Problems Resolved During this Admission: 1. Post op infection -s/p Vanc/Zosyn in ED. Continue with zosyn Q 8hrs. Blood cultures pending, daily cbc. Will consider IR consult pending pt response to IV antibiotics. 2. Afib -restart home metoprolol 50mg Qday 3. HTN - restart home HCTZ 12.5mg DVT- prophylaxis and Pepcid ordered. Discussed POC with family at bedside. All questions answered Terra Rhoades MD Obstetrics & Gynecology [facility] documented in this encounter Procedure Notes Vaughn Lomax II, MD - 01/13/2019 3:54 PM CSTInterventional Radiology Post-Procedure Note Pre Op Diagnosis: Abscess Post Op Diagnosis: Same Procedure: Drainage catheter placemetn Procedure performed by: Dami Written Informed Consent Obtained: Yes Specimen Sent: Yes Estimated Blood Loss: Minimal Findings: Pelvic fluid collection between the rectum and urinary bladder. 10 Fr APD cath placed. 65 mL hoover, foul-smelling purulent material aspirated through drain. Specimen sent. No immediate complications. Patient tolerated procedure well. Please see full dictated procedure report for additional details and recommendations. Recs: 1. Forward flush w 10 mL sterile NS q day. 2. When output drops to below 5-10 mL per day, consider re-imaging or removing the drain. Vaughn Lomax MD [facility] IR Pager [phone] AL OPERATOR documented in this encounter Consult Notes Vaughn Lomax II, MD - 01/13/2019 2:30 PM CSTAssociated Order(s): IP CONSULT TO INTERVENTIONAL RADIOLOGY Interventional Radiology Consult/Pre-Procedure Note Chief Complaint/Reason for Consult: Fluid collection History of Present Illness: Remedios Schofield is a 43 y.o. female with the PMH listed below who presents with a pelvic fluid collection and leukocytosis in the setting of recent hystorectomy. Concern for abscess. IR Consulted for perc drainage. Admission H&P reviewed. Past Medical History: Diagnosis Date ??? A-fib ??? Atrial fibrillation 1982 ??? Atrial fibrillation ??? Bronchitis ??? Fibroid, uterine ??? Hypertension Past Surgical History: Procedure Laterality Date ??? HYSTERECTOMY ??? MYOMECTOMY 2015 fibroids Allergies: Review of patient's allergies indicates: No Known Allergies Scheduled Meds: ??? hydroCHLOROthiazide 12.5 mg Oral Daily ??? metoprolol succinate 50 mg Oral Daily ??? piperacillin-tazobactam (ZOSYN) IVPB 4.5 g Intravenous Q8H Continuous Infusions: PRN Meds:Dextrose 10% Bolus, Dextrose 10% Bolus, glucagon (human recombinant), glucose, glucose, HYDROmorphone, insulin aspart U-100, ondansetron, oxyCODONE- acetaminophen, oxyCODONE-acetaminophen, promethazine (PHENERGAN) IVPB, sodium chloride 0.9% Anticoagulation/Antiplatelet Meds: no anticoagulation Review of Systems: As documented in admission H&P. Physical Exam: Temp: 97.2 ??F (36.2 ??C) (01/13/19 1057) Pulse: 74 (01/13/19 1530) Resp: 16 (01/13/19 1530) BP: 128/76 (01/13/19 1530) SpO2: 98 % (01/13/19 1530) General: WNWD, NAD HEENT: Normocephalic, sclera anicteric, oropharynx clear Heart: RRR Lungs: Symmetric excursions, breathing unlabored Abd: TTP in LLQ, ND, soft Extremities: MAEW, no CCE Neuro: Gross nonfocal Labs: Recent Labs Lab 01/11/19 1632 INR 1.0 Recent Labs Lab 01/13/19 0710 WBC 11.64 HGB 9.8* HCT 32.3* MCV 84 PLT 539* Recent Labs Lab 01/12/19 0546 GLU 138* NA 139 K 3.8 CL 104 CO2 28 BUN 7 CREATININE 0.8 CALCIUM 9.1 ALT 36 AST 22 ALBUMIN 2.8* BILITOT 0.7 Imaging: CT AP 01/11/19 reviewed by me. Assessment/Plan: Fluid collection w foci of gas in the pelvix, likely abscess. Will attempt drainage today. Sedation: Sedation history: have not been any systemic reactions ASA: 2 / Mallampati: 3 Sedation plan: Moderate (Versed, fentanyl) Risks (including, but not limited to, pain, bleeding, infection, damage to nearby structures, failure, and the need for additional procedures), benefits, and alternatives were discussed with the patient. All questions were answered to the best of my abilities. The patient wishes to proceed with drainage. Written informed consent was obtained. Vaughn Lomax MD [facility] IR Pager [phone] AL OPERATOR documented in this encounter ED Notes Angeles Brooks RN - 01/11/2019 8:00 PM CSTPt sitting up in bed. States is feeling better. Angeles Traylor RN - 01/11/2019 7:12 PM FACIAL OPERATOR Report received. Care assumed. Pt AAOx4. Respirations even and unlabored. Pt VSS. Family at , updated on plan of care. Will continue to monitor. AL OPERATOR Daisy Barrow RN - 01/11/2019 6:42 PM CSTPt received 2L of NaCl at this time. Per Dr. Casillas discontinue order for 3,660mL of NaCl . Daisy Yang RN - 01/11/2019 6:25 PM CSTDr. Rhoades at bedside Daisy Yang RN - 01/11/2019 5:46 PM CST2nd liter of NaCl started at this time Angeles Traylor RN - 01/11/2019 5:19 PM FACIAL OPERATOR Medications changed to right hand IV. Daisy Yang RN - 01/11/2019 4:46 PM CSTVerbal order to start 1L of NaCl at this time per Dr. Casillas Daisy Yang RN - 01/11/2019 4:32 PM CSTPt presents to the ED w/ c/ of lower abd pain. Pt reports that on 12/31 pt had hysterectomy and reports has been having lower abd pain since that is worsening. Pt states feel like something is going to pop. pt reports fevers and chills with severe pain. Pt reports has had BMs but states they are notnormal and she has severe lower abd pain when having a BM and when urinating. States pressure from my bladder makes pain worse. reports was placed on cipro 500mg on 01/05 for UTI symptoms. Pt reportsthat today at around 1400 lower abd pain became intolerable. 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 Dieter Mathews MD - 01/11/2019 4:25 PM CSTAssociated Order(s): Critical Care Encounter Date: 01/11/2019 SCRIBE #1 NOTE: IAdalberto, radha scribing for, and in the presence of, Dieter Casillas MD. History Chief Complaint Patient presents with ??? Abdominal Pain Reports laparoscopic Hysterectomy on 12/31. Reports since the surgery has been having fevers and was placed on Cipro 500mg. States pain became intolerable around 1400. 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 43 year-old female with history of Afib, HTN, Uterine fibroid presents to the ED due to abdominal pain s/p laparoscopic hysterectomy performed at [facility] 12/31. Patient has had fever since 2 days post-op. She spoke to her doctor and was placed on Cipro 500 mg. Patient has had worsening left lower abdominal pain that became intolerable at today at 14:00. She denies any vaginal bleeding/discharge or flank pain. Patient took Aleve prior to arrival. She is not on anticoagulants but does take Aspirin. The history is provided by the patient. Review of patient's allergies indicates: No Known Allergies Past Medical History: Diagnosis Date ??? A-fib ??? Atrial fibrillation 1982 ??? Atrial fibrillation ??? Bronchitis ??? Fibroid, uterine ??? Hypertension Past Surgical History: Procedure Laterality Date ??? MYOMECTOMY 2015 fibroids Family History Problem [...] No Review of Systems Constitutional: Positive for fever. HENT: Negative for sore throat. Respiratory: Negative for shortness of breath. Cardiovascular: Negative for chest pain. Gastrointestinal: Positive for abdominal pain. Genitourinary: Negative for flank pain, vaginal bleeding and vaginal discharge. Musculoskeletal: Negative for back pain. Skin: Negative for rash. Neurological: Negative for weakness. Hematological: Does not bruise/bleed easily. All other systems reviewed and are negative. Physical Exam Initial Vitals [01/11/19 1614] BP Pulse Resp Temp SpO2 (!) 204/91 110 (!) 24 99.1 ??F (37.3 ??C) 100 % MAP -- Physical Exam Nursing note and vitals reviewed. Constitutional: She appears well-developed and well-nourished. Hot to touch HENT: Head: Normocephalic and atraumatic. Eyes: EOM are normal. Pupils are equal, round, and reactive to light. Neck: Normal range of motion. Neck supple. Cardiovascular: Intact distal pulses. An irregularly irregular rhythm present. Tachycardia present. No murmur heard. Pulmonary/Chest: Breath sounds normal. No respiratory distress. She has no wheezes. Abdominal: Soft. She exhibits no distension. There is tenderness. Well healing laparoscopic surgical site. Severe LLQ and diffuse abdominal tenderness with voluntary guarding Musculoskeletal: Normal range of motion. She exhibits no edema. Neurological: She is alert and oriented to person, place, and time. Skin: Skin is warm and dry. ED Course Critical Care Date/Time: 01/11/2019 6:11 PM Performed by: Dieter Casillas MD Authorized by: Dieter Casillas MD Total critical care time (exclusive of procedural time) : 35 minutes Critical care was necessary to treat or prevent imminent or life-threatening deterioration of the following conditions: sepsis. Labs Reviewed CBC W/ AUTO DIFFERENTIAL - Abnormal; Notable for the following components: Result Value WBC 23.19 (*) Hemoglobin 11.1 (*) Hematocrit 34.9 (*) Mean Corpuscular Hemoglobin 26.6 (*) Mean Corpuscular Hemoglobin Conc 31.8 (*) Platelets 513 (*) Gran # (ANC) 15.8 (*) [place] # 2.1 (*) All other components within normal limits COMPREHENSIVE METABOLIC PANEL - Abnormal; Notable for the following components: Glucose 133 (*) Albumin 3.2 (*) Alkaline Phosphatase 267 (*) ALT 47 (*) All other components within normal limits URINALYSIS, REFLEX TO URINE CULTURE - Abnormal; Notable for the following components: Specific [place], UA <=1.005 (*) Occult Blood UA 2+ (*) Leukocytes, UA 1+ (*) All other components within normal limits Narrative: Preferred Collection Type->Urine, Clean Catch APTT - Abnormal; Notable for the following components: aPTT 32.3 (*) All other components within normal limits URINALYSIS MICROSCOPIC - Abnormal; Notable for the following components: RBC, UA 5 (*) WBC, UA 30 (*) Bacteria Few (*) All other components within normal limits Narrative: Preferred Collection Type->Urine, Clean Catch ISTAT PROCEDURE - Abnormal; Notable for the following components: POC PH 7.513 (*) POC PCO2 33.3 (*) POC PO2 26 (*) POC SATURATED O2 55 (*) All other components within normal limits INFLUENZA A & B BY MOLECULAR CULTURE, URINE LACTIC ACID, PLASMA TROPONIN I PROCALCITONIN PROTIME-INR TSH BETA - HYDROXYBUTYRATE, SERUM EKG Readings: (Independently Interpreted) EKG: sinus rhythm at 95 bpm, normal intervals, no STEMI Imaging Results X-Ray Chest AP Portable (Final result) Result time 01/11/19 17:28:06 Final result by Maureen Calvin MD (01/11/19 17:28:06) Impression: No acute cardiopulmonary process identified. Electronically signed by: Maureen Calvin MD Date: 01/11/2019 Time: 17:28 Narrative: EXAMINATION: XR CHEST AP PORTABLE CLINICAL HISTORY: Sepsis; TECHNIQUE: Single frontal view of the chest was performed. COMPARISON: 10/30/2018. FINDINGS: Cardiac silhouette is normal in size. Lungs are symmetrically expanded. No evidence of focal consolidative process, pneumothorax, or significant effusion. No acute osseous abnormality identified. CT Abdomen Pelvis Without Contrast (Final result) Result time 01/11/19 17:22:28 Final result by Maureen Calvin MD (01/11/19 17:22:28) Impression: Postsurgical changes of recent hysterectomy with two air and fluid collections versus larger multilocular collection seen within the lower pelvis and left adnexal region likely reflecting developing abscess. Electronically signed by: Maureen Calvin MD Date: 01/11/2019 Time: 17:22 Narrative: EXAMINATION: CT ABDOMEN PELVIS WITHOUT CONTRAST CLINICAL HISTORY: Infection, abdomen-pelvis; TECHNIQUE: Low dose axial images, sagittal and coronal reformations were obtained from the lung bases to the pubic symphysis. Oral contrast was not administered. COMPARISON: CT abdomen and pelvis from 10/30/2018. FINDINGS: The visualized portion of the heart is unremarkable. The lung bases are clear. No significant hepatic abnormality seen on this noncontrast exam. There is no intra-or extrahepaticbiliary ductal dilatation. The gallbladder is unremarkable. The stomach, pancreas, spleen, and adrenal glands are unremarkable. Kidneys show no evidence of stones or hydronephrosis. Ureters are difficult to track. Urinary bladder wall thickening is seen, noting nondistention. Postsurgical changes of recent hysterectomy are seen with significant inflammatory changes are seen within the left lower quadrant. There are 2 separate versus larger multilocular air and fluid collection suggestive for developing abscess. These measure 6.0 x 4.5 cm inferiorly within the pelvis and 4.0 x 3.5 cm within the left adnexal region. Few scattered colonic diverticula are seen in the region. No evidence of abnormal small bowel dilatation or obstruction. Appendix is visualized and is unremarkable. No significant free fluid seen. Aorta tapers normally. No acute osseous abnormality identified. Subcutaneous soft tissue structures are unremarkable. Medical Decision Making: Differential Diagnosis: Differential Diagnosis includes, but is not limited to: Sepsis, bacteremia, UTI, pneumonia, cellulitis, abscess, indwelling line/catheter infection, cholecystitis, viral URI, gastroenteritis, viral syndrome, sinusitis, otitis media/externa, neoplasm, drug reaction, serotonin syndrome, intoxication/withdrawal syndrome. Independently Interpreted Test(s): I have ordered and independently interpreted X-rays - see prior notes. I have ordered and independently interpreted EKG Reading(s) - see prior notes Clinical Tests: Lab Tests: Ordered and Reviewed Radiological Study: Reviewed and Ordered Medical Tests: Reviewed and Ordered Sepsis Perfusion Assessment: I attest, a sepsis perfusion exam was performed within 6 hours of Septic Shock presentation, following fluid resuscitation. ED Management: 5:38 PM Discussed with OB-BILINGUAL RECRUITER, Dr. Rhoades who will come see the patient in the ER and discuss plan with patient. He recommends continuing antibiotics. Intraabdominal abscess present suspect post op infection, concomitant DKA excluded. Other: I have discussed this case with another health care provider. Clinical Impression: ICD-10-CM ICD-9-CM 1. Sepsis A41.9 038.9 995.91 2. Post op infection T81.40XA 998.59 Disposition: Disposition: Admitted Condition: Serious I, Dr. Dieter Casillas, personally performed the services described in this documentation. All medical record entries made by the scribe were at my direction and in my presence. I have reviewed the chart and agree that the record reflects my personal performance and is accurate and complete. Dieter Casillas MD. 5:38 PM 01/12/2019 Dieter Casillas MD 01/12/19 1740 Angeles Diaz RN - 01/11/2019 4:16 PM CSTBed: EXAM 08 Expected date: Expected time: Means of arrival: Comments: teddie documented in this encounter Miscellaneous Notes Plan of Bob - Keisha Dobbs RN - 01/14/2019 5:01 PM CST Discharge rounds on patient. Discussed followup appointments, blue discharge folder, discharge nursewill go over home medications and reasons for medications and final discharge instructions. All patient/caregiver questions answered. Patient verbalized understanding. 01/14/19 1711 Final Note Assessment Type Final Discharge Note Anticipated Discharge Disposition Home What phone number can be called within the next 1-3 days to see how you are doing after discharge? [phone] Hospital Follow Up Appt(s) scheduled? Yes Discharge plans and expectations educations in teach back method with documentation complete? Yes Right Care Referral Info Post Acute Recommendation No Care Referral Type None lan of Care - Ailyn Meraz RN - 01/14/2019 4:51 PM CSTVN reviewed discharge instructions with pt. AVS printed and handed to pt by bedside nurse. Reviewed followup appts, medication, diet, and importance of medication compliance. Reviewed home care instructions, treatment plan, self management and when to seek medical attention. Allowed time for questions, all questions answered. Pt verbalized complete understanding of discharge instructions and voices no concerns. Discharge instructions complete. Bedside delivery done. Bedside nurse notified. lan of Care - Latrice Larose RN - 01/14/2019 4:35 PM FACIAL OPERATOR Problem: Fall Injury Risk Goal: Absence of Fall and Fall-Related Injury Outcome: Met Problem: Adult Inpatient Plan of Care Goal: Plan of Care Review Outcome: Met Goal: Patient-Specific Goal (Individualization) Outcome: Met Goal: Absence of Hospital-Acquired Illness or Injury Outcome: Met Goal: Optimal Comfort and Wellbeing Outcome: Met Goal: Readiness for Transition of Care Outcome: Met Goal: Rounds/Family Conference Outcome: Met Problem: Hypertension Comorbidity Goal: Blood Pressure in Desired Range Outcome: Met Problem: Infection Goal: Infection Symptom Resolution Outcome: Met hysician Query - Terra Rhoades MD - 01/14/2019 10:07 AM CST PT Name: Remedios Schofield MR #: [id number] Physician Query Form - Emergency Medicine Diagnosis Clarification CDS/Laboratory Mechanic Helper: JOHNNY Abdi,RNC-MNN Contact information:[email or web address] This form is a permanent document in the medical record. Query Date: January 14, 2019 By submitting this query, we are merely seeking further clarification of documentation. Please utilize your independent clinical judgment when addressing the question(s) below. The Medical record contains the following: Diagnosis Supporting Clinical Information Location in Medical Record Sepsis Sepsis Perfusion Assessment: I attest, a sepsis perfusion exam was performed within 6 hours of Septic Shock presentation, following fluid resuscitation Intraabdominal abscess present suspect post op infection, concomitant DKA excluded /p laparoscopic hysterectomy performed at [facility] 12/31. Patient has had fever since 2 days post-op. She spoke to her doctor and was placed on Cipro 500 mg. Patient has had worsening left lower abdominalpain that became intolerable at today at 14:00. She denies any vaginal bleeding/discharge or flank pain. Patient took Aleve prior to arrival Post op infection -POD#1 s/p IR drainage. >48hr of IV antibiotics since admission. Will transition to po augmentin after AM dose. Awaiting final culture results and sensitivities. AM CBC pending. Discussed criteria for discharge with close f/u on Thursday. Pt family Already instructed on wound care ED Provider note 01/12 OB Progress note 01/14@630am Do you agree with the Emergency Medicine diagnosis of Sepsis? [ ] Yes [ ] Yes, but it resolved prior to my assessment of the patient [x ] No [ ] Clinically Insignificant [ ] Other/Clarification of Findings: [ ] Clinically Undetermined Please document in your progress notes daily for the duration of treatment until resolved and include in your discharge summary. hysician Query - Terra Rhoades MD - 01/14/2019 10:05 AM CST PT Name: Remedios Schofield MR #: [id number] Physician Query Form - Atrial Fibrillation Specificity CDS/Laboratory Mechanic Helper: JOHNNY Abdi,RNC-MNN Contact information:[email or web address] This form is a permanent document in the medical record. Query Date: January 14, 2019 By submitting this query, we are merely seeking further clarification of documentation. Please utilize your independent clinical judgment when addressing the question(s) below. The medical record contains the following: Indicators Supporting Clinical Findings Location in Medical Record X Atrial Fibrillation Afib OB Progress note 01/14@630am X EKG results Normal sinus rhythm Possible Left atrial enlargement Borderline Abnormal ECG When compared with ECG of 30-OCT-2018 00:45, No significant change was found EKG 01/11 X Medication continue??home metoprolol 50mg Qday OB Progress note 01/14@630am Treatment Other Provider, please further specify the Atrial Fibrillation diagnosis. [ x ] Chronic [ ] Permanent [ ] Persistent [ ] Other (please specify): [ ] Clinically Undetermined Please document in your progress notes daily for the duration of treatment until resolved, and include in your discharge summary. lan Sandro Guerrier CRT - 01/14/2019 8:05 AM CSTPt. On room air in no apparent distress. Will cont. To monitor. lan Simon Vásquez RN - 01/14/2019 2:27 AM CSTProblem: Adult Inpatient Plan of Care Goal: Plan of Care Review Outcome: Ongoing, Progressing Mrs. Schofield is resting and daughter is at bedside. IVF antibiotic infusing. VSS. Pain controlled with PRN medications. Drain in place on right gluteal area- output in flowsheets. Cardiac and blood glucose monitoring in place. Safety maintained. lan Dong Ahmadi CRT - 01/13/2019 9:44 PM CSTContinue regiment Bassam Quesadaia, RN - 01/13/2019 3:28 PM CST10 fr drain placed to right pelvis through right buttock, 65 ml of thick red/brown/yellow substance draining, pt tolerated well, report called to RN lan of Annette Reeves RN - 01/13/2019 1:00 PM CSTVN cued into pt's room for introduction. VN informed pt and that VN would be working along side bedside nurse and PCT throughout shift. Level of present pain assessed. At present no distress noted. Thoroughly discussed with patient and plan of care. Patient states still having drainagefrom vagina but it has lessened. Discussed with patient High fall risk protocol and interventions that have been initiated and cont be in place for safety. Patient and verbalized clear understanding and cooperation using teach back method. Bed alarm presently activated and in use. Will cont to be available to patient and intervene prn. lan of Valerie Garcia, JULIO - 01/13/2019 7:53 AM CSTPt on RA with documented sats. Will continue to monitor. lan of Simon Barroso RN - 01/13/2019 3:46 AM CSTProblem: Adult Inpatient Plan of Care Goal: Plan of Care Review Outcome: Ongoing, Progressing Mrs. Schofield is resting and daughter at bedside. VSS. Pain controled with PRN medications. Blood glucose monitoring; Planning to go to IR later this morning. NPO at [place]. lan of Jason White RRT - 01/12/2019 7:42 PM CSTPatient on RA, no respiratory distress noted. Will continue to monitor. lan of Ethel Esparza RN - 01/12/2019 5:26 PM CSTPatient is awake and alert. Ambulates to bathroom independently. Continues to receive IV antibiotics. Instructed about NPO as patient may be going to IR to drain abscess. Accucheck 79 and orange juices given. Family members at bedside. Has complaints of pain and pain medications given with relief. Safety is maintained. Will continue to monitor. eisha Pathak RN - 01/12/2019 1:56 PM CST TN met with patient at bedside. Currently patient lives at home with her Gera, and Daughter. Patient independent of all ADL's. No DME or HH noted. Upon discharge, patient will have help at home from her and daughter. Transportation home and to follow up appointments will be provided by patient's . TN updated whiteboard with contact information. Blue discharge folder and discharge brochure given to patient. TN instructed patient to please contact me if she any further questions or concerns. TN will continue to follow. 01/12/19 5902 Discharge Assessment Assessment Type Discharge Planning Assessment Confirmed/corrected address and phone number on facesheet? Yes Assessment information obtained from? Patient Expected Length of Stay (days) 2 Communicated expected length of stay with patient/caregiver yes Prior to hospitilization cognitive status: Alert/Oriented Prior to hospitalization functional status: Independent Current cognitive status: Alert/Oriented Current Functional Status: Independent Lives With child(ekta), dependent;spouse Able to Return to Prior Arrangements yes Is patient able to care for self after discharge? Yes Patient's perception of discharge disposition home or selfcare Readmission Within the Last 30 Days other (see comments) (Post op infection) Patient currently being followed by outpatient case [...] none Patient/Family in Agreement with Plan yes lbert - Theresa Pisano RRT - 01/12/2019 10:19 AM CSTReceived pt on documented 02; will cont to monitor Ashtyn Reid LPN - 01/12/2019 5:45 AM CSTPatient complaining of increased pain rated as 10/10. Also reports a yellow vaginal discharge that has an odor. Notified Dr. Rhoades. Dr. Rhoades states that vaginal discharge can be expected and to administer IV pain medication to help relieve pain. States she will review patient's labs as well. Willadminister pain medication and continue to monitor. lan of Ashtyn Wilson LPN - 01/12/2019 5:09 AM CSTPatient awake and alert. Scheduled medications administered per MD order. Afebrile. No adverse reactions to antibiotic. Johns relieved with prn medications. Afebrile. Patient safety maintained. Will carolyn nue to monitor. lan of Meghan So RRT - 01/11/2019 11:50 PM CSTPatient on RA, no repiratory distress noted. Will continue to monitor. Cristal Cruz RN - 01/11/2019 9:48 PM CSTVN cued into room to complete admit assessment, VIP model introduced, VN working alongside bedside treatment team. Plan of care reviewed with patient. Patient verbalized understanding. Patient informed of fall risk and fall precautions, call light within reach, 2x bed rails. Patient notified to ask staff for assistance and pt verbalized complete understanding. Time allowed for questions. Will continue to monitor and intervene as needed. Ashtyn Reid LPN - 01/11/2019 9:15 PM CSTPatient arrived from ED. Vitals WNL. Appears to be in no distress. Pt already seen by Dr. Verona Negrete. Orders released. Will continue to monitor. documented in this encounter Plan of Treatment Not on filedocumented as of this encounter Goals Goal Patient Goal Associated Recent Patient-Stated? Author Type Problems Progress Blood Pressure Blood 197/101 Yes Myochsner, < 130/80 Pressure (02/21/2020 System Messag e 10:15 AM FACIAL OPERATOR) Take at least Blood No Cutura, [...] Procedure Name Priority Date/Time Associated Comments Diagnosis CBC W/ AUTO Routine 01/14/2019 6:29 Abscess Results for this DIFFERENTIAL AM FACIAL OPERATOR procedure are i n the results section. POCT GLUCOSE Routine 01/14/2019 5:27 Results for this AM FACIAL OPERATOR procedure are i n the results section. POCT GLUCOSE Routine 01/13/2019 7:34 Results for this PM FACIAL OPERATOR procedure are i n the results section. CT GUIDED ABSCESS Routine 01/13/2019 3:40 Result s for this DRAINAGE WITH CATHETER PM FACIAL OPERATOR proce dure are in the results section. CULTURE, AEROBIC Routine 01/13/2019 3:34 Results for this (SPECIFY SOURCE) PM FACIAL OPERATOR procedure a re in the results section. GRAM STAIN Routine 01/13/2019 3:34 Results for this PM FACIAL OPERATOR procedure are i n the results section. CULTURE, ANAEROBIC Routine 01/13/2019 3:34 Resul ts for this PM FACIAL OPERATOR procedure are i n the results section. POCT GLUCOSE Routine 01/13/2019 10:55 Results for this AM FACIAL OPERATOR procedure are i n the results section. CBC W/ AUTO Routine 01/13/2019 7:10 Results for this DIFFERENTIAL AM FACIAL OPERATOR procedure are i n the results section. POCT GLUCOSE Routine 01/13/2019 5:31 Results for this AM FACIAL OPERATOR procedure are i n the results section. POCT GLUCOSE Routine 01/12/2019 8:25 Results for this PM FACIAL OPERATOR procedure are i n the results section. POCT GLUCOSE Routine 01/12/2019 5:20 Results for this PM FACIAL OPERATOR procedure are i n the results section. POCT GLUCOSE Routine 01/12/2019 11:24 Results for this AM FACIAL OPERATOR procedure are i n the results section. CBC W/ AUTO Routine 01/12/2019 5:46 Results for this DIFFERENTIAL AM FACIAL OPERATOR procedure are i n the results section. HEMOGLOBIN A1C Routine 01/12/2019 5:46 Results f or this AM FACIAL OPERATOR procedure are i n the results section. COMPREHENSIVE Routine 01/12/2019 5:46 Results fo r this METABOLIC PANEL AM FACIAL OPERATOR procedure ar e in the results section. LACTIC ACID, PLASMA CARLOTA 01/11/2019 9:24 Resu lts for this PM FACIAL OPERATOR procedure are i n the results section. XR CHEST AP PORTABLE STAT 01/11/2019 5:13 Res ults for this PM FACIAL OPERATOR procedure are i n the results section. CT ABDOMEN PELVIS STAT 01/11/2019 5:07 Result s for this WITHOUT CONTRAST PM FACIAL OPERATOR procedure a re in the results section. INFLUENZA A & B BY STAT 01/11/2019 4:51 Resul ts for this MOLECULAR PM FACIAL OPERATOR procedure are i n the results section. URINALYSIS, REFLEX TO STAT 01/11/2019 4:51 Re sults for this URINE CULTURE PM FACIAL OPERATOR procedure are in the results section. URINALYSIS MICROSCOPIC STAT 01/11/2019 4:51 R esults for this PM FACIAL OPERATOR procedure are i n the results section. CULTURE, URINE STAT 01/11/2019 4:51 Results f or this PM FACIAL OPERATOR procedure are i n the results section. HC EKG STAT 01/11/2019 4:50 Sepsis Results for this PM FACIAL OPERATOR procedure are i n the results section. ISTAT PROCEDURE Routine 01/11/2019 4:45 Results for this PM FACIAL OPERATOR procedure are i n the results section. BETA - Routine 01/11/2019 4:38 Results for this HYDROXYBUTYRATE, SERUM PM FACIAL OPERATOR proce dure are in the results section. POCT VENOUS BLOOD GAS STAT 01/11/2019 4:32 PM FACIAL OPERATOR PROCALCITONIN STAT 01/11/2019 4:32 Results fo r this PM FACIAL OPERATOR procedure are i n the results section. CBC W/ AUTO STAT 01/11/2019 4:32 Results for this DIFFERENTIAL PM FACIAL OPERATOR procedure are i n the results section. TROPONIN I STAT 01/11/2019 4:32 Results for this PM FACIAL OPERATOR procedure are i n the results section. APTT STAT 01/11/2019 4:32 Results for this PM FACIAL OPERATOR procedure are i n the results section. PROTIME-INR STAT 01/11/2019 4:32 Results for this PM FACIAL OPERATOR procedure are i n the results section. TSH STAT 01/11/2019 4:32 Results for this PM FACIAL OPERATOR procedure are i n the results section. LACTIC ACID, PLASMA STAT 01/11/2019 4:32 Resu lts for this PM FACIAL OPERATOR procedure are i n the results section. COMPREHENSIVE STAT 01/11/2019 4:32 Results fo r this METABOLIC PANEL PM FACIAL OPERATOR procedure ar e in the results section. CRITICAL CARE Routine 01/11/2019 4:25 Results fo r this PM FACIAL OPERATOR procedure are i n the results section. CULTURE, BLOOD CARLOTA 01/11/2019 4:20 Results f or this PM FACIAL OPERATOR procedure are i n the results section. CULTURE, BLOOD CARLOTA 01/11/2019 4:15 Results f or this PM FACIAL OPERATOR procedure are i n the results section. CARDIAC MONITORING 01/11/2019 12:00 STRIPS AM FACIAL OPERATOR EKG 12-LEAD 01/11/2019 12:00 AM FACIAL OPERATOR documented in this encounter Results CBC auto differential (01/14/2019 6:29 AM FACIAL OPERATOR) Pathologist Sig nature WBC 11.50 3.90 - 12.70 [facility] K/uL [facility] RBC 3.98 (L) 4.00 - 5.40 [facility] M/uL [facility] Hemoglobin 10.2 (L) 12.0 - 16.0 [facility] g/dL [facility] Hematocrit 33.7 (L) 37.0 - 48.5 % [facility] MCV 85 82 - 98 fL [facility] MCH 25.6 (L) 27.0 - 31.0 pg [facility] MCHC 30.3 (L) 32.0 - 36.0 [facility] g/dL [facility] RDW 13.8 11.5 - 14.5 % [facility] Platelets 601 (H) 150 - 350 K/uL [facility] MPV 9.5 9.2 - 12.9 fL [facility] Gran # (ANC) 7.8 (H) 1.8 - 7.7 K/uL [facility] Lymph # 2.4 1.0 - 4.8 K/uL [facility] Republic # 1.0 0.3 - 1.0 K/uL [facility] Eos # 0.2 0.0 - 0.5 K/uL [facility] Baso # 0.02 0.00 - 0.20 [facility] K/[facility] Gran % 68.8 38.0 - 73.0 % [facility] Lymph % 20.8 18.0 - 48.0 % [facility] Republic % 8.5 4.0 - 15.0 % [facility] Eosinophil % 1.7 0.0 - 8.0 % [facility] Basophil % 0.2 0.0 - 1.9 % [facility] Differential Method Automated [facility] Specimen Blood - Blood Performing Organization Address [facility] Phon e Number [facility] - [address] Flavia [place], [place] [address] DENISE POCT glucose (01/14/2019 5:27 AM FACIAL OPERATOR) Pathologist Sig nature POCT Glucose 144 (H) 70 - 110 mg/dL [facility] Specimen Blood Performing Organization Address [facility] Phon e Number UNIPOC UN[facility]OC N/A POCT glucose (01/13/2019 7:34 PM FACIAL OPERATOR) Pathologist Sig nature POCT Glucose 140 (H) 70 - 110 mg/dL [facility] Specimen Blood Performing Organization Address [facility] Phon e Number UNIPOC UNIPOC N/A CT Guided Abscess Drainage With Catheter (01/13/2019 3:40 PM FACIAL OPERATOR) Specimen Impressions Performed At [facility] FLUENCY 1. Pelvic abscess measuring 12 x 6.2 cm. 2. Successful placement of a 10 Wallisian all-purpose jacob inage catheter into this abscess. ??65 mL hoover, foul-smelling purulent material was aspirated through the drain. ??A specime n was sent. Plan: 1. Forward flush w 10 mL sterile NS q da y. 2. When output drops to below 5-10 mL per day, conside r re-imaging or removing the drain. Attestation: Signer name: Vaughn Lomax MD I attest that I was present for the entire procedure. I reviewed the stored images and agree with the report as written. Electronically signed by: Vaughn Lomax Date: 01/14/2019 Time: 10:48 Narrative Performed At EXAMINATION: [facility] Drainage catheter placement Procedural Personnel Attending physician(s): Vaughn Lomax MD Fellow physician(s): None Resident physician(s): None Advanced practice provider(s): None Pre-procedure diagnosis: Abscess Post-procedure diagnosis: Same Indication: Postop fluid collection, janell kocytosis Additional clinical history: None Complications: No immediate complication s. PROCEDURAL SUMMARY: 1. CT pelvis with contrast 2. CT-guided drainage catheter placement PROCEDURE: Pre-procedure: Consent: Informed consent for the procedure was obtain ed and time-out was performed prior to the procedure. Preparation: The site was prepared and draped using nilo croft sterile barrier technique including cutaneous an tisepsis. Antibiotic administered: Prophylactic dose within 1 ho ur of procedure start time or 2 hours for vancomycin or fluoroquinolones. Anesthesia/sedation: Level of anesthesia/sedation: Moderate s edation (conscious sedation) Anesthesia/sedation administered by: Independent train ed observer under attending supervision with continuous monitoring of the patient's level of consciousness and phy siologic status Total intra-service sedation time (minut es): 35 CT pelvis with contrast With the patient positioned prone, a CT of the pelvis was performed from the lower abdomen through the inferior pubic rami . ??There is a 12 cm x 6.2 cm rim enhancing collection between the re ctum and urinary bladder which extends along the left pelvic sidewall. ??This collection contains a few small foci of gas. ??No free air. ??Moderate associated fat stranding. ??The wall of the urinary bl adder is thickened posteriorly. ??This may be due to the adjace nt inflammatory process. ??Included loops of bowel appear normal. ??Pa rtially visualized kidneys appear normal. ??No significant ath erosclerotic disease. ??Included osseous structures a nd soft tissues are normal. Drainage catheter placement: Lidocaine 1% local anesthesia was administered. ??Unde r intermittent CT guidance, an access needle was advanced through the skin and into collection. ??The stylet was removed and a wire was co iled within the collection. ??The tract was serially dilated and a jacob inage catheter was placed. ??Position within the collection was confi rmed on CT. ??65 mL hoover, foul-smelling purulent material was aspirated through the drain. ??Drainage connected to an accord ion suction bag. - Initial imaging findings: See above - Drainage catheter placed: 10 Wallisian al l-purpose drainage catheter - External catheter securement: Non abso rbable suture - Post-drainage imaging findings: Cathet er in satisfactory position Contrast: Contrast agent: Omnipaque 350 Contrast volume (mL): 100 Radiation Dose: CT dose length product ( mGy-cm): 3137.4 Additional Details: Additional description of procedure: Non e Equipment details: None Specimens sent: Aspirated fluid was sent for analysis. Estimated blood loss (mL): Less than 10 Standardized report: SIR_DrainPlacement_ v2 Procedure Note Interface, Rad Results In - 01/14/2019 1 0:50 AM FACIAL OPERATOR EXAMINATION: Drainage catheter placement Procedural Personnel Attending physician(s): Vaughn Lomax MD Fellow physician(s): None Resident physician(s): None Advanced practice provider(s): None Pre-procedure diagnosis: Abscess Post-procedure diagnosis: Same Indication: Postop fluid collection, janell kocytosis Additional clinical history: None Complications: No immediate complication s. PROCEDURAL SUMMARY: 1. CT pelvis with contrast 2. CT-guided drainage catheter placement PROCEDURE: Pre-procedure: Consent: Informed consent for the proced ure was obtained and time-out was performed prior to the procedure. Preparation: The site was prepared and d raped using maximal sterile barrier technique including cutaneous antisepsis. Antibiotic administered: Prophylactic do se within 1 hour of procedure start time or 2 hours for vancomycin or fluoroquinolones. Anesthesia/sedation: Level of anesthesia/sedation: Moderate s edation (conscious sedation) Anesthesia/sedation administered by: Ind ependent trained observer under attending supervision with continuous monitoring of the patient's level of consciousness and physiologic status Total intra-service sedation time (minut es): 35 CT pelvis with contrast With the patient positioned prone, a CT of the pelvis was performed from the lower abdomen through the inferior pubic rami. There is a 12 cm x 6.2 cm rim enhancing collection between the rectum and urinary bladder which extends along the left pelvic sidewall. This collection contains a few small foci of gas. No free air. Moderate associated fat stranding. The wall of the urinary bladder is thickened posteriorly. This may be due to the adjacent inflammatory process. Incl uded loops of bowel appear normal. Partially visualized kidneys appear normal. No significant atherosclerotic disease. Included osseous structures and soft tissues are normal. Drainage catheter placement: Lidocaine 1% local anesthesia was admini stered. Under intermittent CT guidance, an access needle was advanced through the skin and into collection. The stylet was removed and a wire was coiled within the collection. The tract was serially dila ese and a drainage catheter was placed. Position within the collection was confirmed on CT. 65 mL hoover, foul-smelling purulent material was aspirated through the drain. Drainage connected to an accordion suction bag. - Initial imaging findings: See above - Drainage catheter placed: 10 Wallisian al l-purpose drainage catheter - External catheter securement: Non abso rbable suture - Post-drainage imaging findings: Cathet er in satisfactory position Contrast: Contrast agent: Omnipaque 350 Contrast volume (mL): 100 Radiation Dose: CT dose length product ( mGy-cm): 3137.4 Additional Details: Additional description of procedure: Non e Equipment details: None Specimens sent: Aspirated fluid was sent for analysis. Estimated blood loss (mL): Less than 10 Standardized report: SIR_DrainPlacement_ v2 Impression: 1. Pelvic abscess measuring 12 x 6.2 cm. 2. Successful placement of a 10 Wallisian a ll-purpose drainage catheter into this abscess. 65 mL hoover, foul-smelling purulent material was aspirated through the drain. A specimen was sent. Plan: 1. Forward flush w 10 mL sterile NS q da y. 2. When output drops to below 5-10 mL pe r day, consider re-imaging or removing the drain. Attestation: Signer name: Vaughn Lomax MD I attest that I was present for the enti re procedure. I reviewed the stored images and agree with the report as written. Electronically signed by:Vaughn Lomax Date:01/14/2019 Time:10:48 Performing Organization Address City/State/ZIP Code Phon e Number [facility] FLUENC[facility] n/a Aerobic culture (01/13/2019 3:34 PM FACIAL OPERATOR) Aerobic Bacterial No significant [facility] Culture isolate [facility] Specimen Abscess - Peritoneal Fluid Performing Organization Address [facility]/ZIP Code Phon e Number [facility] [address] [place] [address] [place] Culture, Anaerobic (01/13/2019 3:34 PM FACIAL OPERATOR) Pathologist [facility] Anaerobic Culture BACTEROIDES FRAGILIS [facility] (A) [place] Specimen Abscess - Peritoneal Fluid Performing Organization Address [facility]/ZIP [facility] Phon e Number [facility] [address] [place] [address] [place] Gram stain (01/13/2019 3:34 PM FACIAL OPERATOR) Pathologist [facility] Gram Stain Result Many WBC's [facility] Gram Stain Result Many Gram negative [facility] rods [facility] Gram Stain Result Moderate Gram [facility] positive cocci [facility] Specimen Abscess - Peritoneal Fluid Performing Organization Address [facility]/ZIP [facility] Phon e Number [facility] [address] [place] [address] [place] POCT glucose (01/13/2019 10:55 AM FACIAL OPERATOR) Pathologist [facility] nature POCT Glucose 119 (H) 70 - 110 mg/dL [facility] Specimen Blood Performing Organization Address [facility]/ZIP [facility] Phon e Number [facility] N/A CBC auto differential (01/13/2019 7:10 AM FACIAL OPERATOR) WBC 11.64 3.90 - 12.70 [facility] K/uL [facility] RBC 3.84 (L) 4.00 - 5.40 [facility] M/[facility] Hemoglobin 9.8 (L) 12.0 - 16.0 [facility] g/dL [facility] Hematocrit 32.3 (L) 37.0 - 48.5 % [facility] MCV 84 82 - 98 fL [facility] MCH 25.5 (L) 27.0 - 31.0 pg [facility] MCHC 30.3 (L) 32.0 - 36.0 [facility] g/dL [facility] RDW 13.8 11.5 - 14.5 % [facility] Platelets 539 (H) 150 - 350 K/uL [facility] MPV 9.7 9.2 - 12.9 fL [facility] Gran # (ANC) 7.5 1.8 - 7.7 K/uL [facility] Lymph # 2.5 1.0 - 4.8 K/uL [facility] Republic # 1.2 (H) 0.3 - 1.0 K/uL [facility] Eos # 0.2 0.0 - 0.5 K/uL [facility] Baso # 0.03 0.00 - 0.20 [facility] K/uL [facility] Gran % 66.3 38.0 - 73.0 % [facility] Lymph % 21.2 18.0 - 48.0 % [facility] Republic % 10.3 4.0 - 15.0 % [facility] Eosinophil % 1.9 0.0 - 8.0 % [facility] Basophil % 0.3 0.0 - 1.9 % [facility] Platelet Estimate Increased (A) [facility] Differential Method Automated [facility] Specimen Blood - Blood Performing Organization Address City/State/ZIP Code Phon e Number [facility] [facility] [place] - [address] [place] [address] [place] POCT glucose (01/13/2019 5:31 AM FACIAL OPERATOR) Pathologist Sig nature POCT Glucose 136 (H) 70 - 110 mg/dL [facility] Specimen Blood Performing Organization Address City/State/ZIP Code Phon e Number UNIPOC UNIPOC N/A POCT glucose (01/12/2019 8:25 PM FACIAL OPERATOR) Pathologist Sig nature POCT Glucose 113 (H) 70 - 110 mg/dL [place] Specimen Blood Performing Organization Address City/State/ZIP Code Phon e Number [place]IP[place] N/A POCT glucose (01/12/2019 5:20 PM FACIAL OPERATOR) Pathologist Sig nature POCT Glucose 79 70 - 110 mg/dL [place] Specimen Blood Performing Organization Address City/[facility]/ZIP Code Phon e Number UNIPOC UN[place]OC N/A POCT glucose (01/12/2019 11:24 AM FACIAL OPERATOR) Pathologist Sig nature POCT Glucose 139 (H) 70 - 110 mg/dL [place] Specimen Blood Performing Organization Address City/[facility]/ZIP Code Phon e Number UNIPOC UN[place]OC N/A Hemoglobin A1c (01/12/2019 5:46 AM FACIAL OPERATOR) Hemoglobin A1C 6.5 (H) 4.0 - 5.6 % [facility] Comment: [facility] ADA Screening Guidelines: 5.7-6.4% ??Consistent with prediabetes >or=6.5% ??Consistent with diabetes High levels of hemoglobin interfere with the HbA 1C assay. Heterozygous hemoglobin variants (HbS, HgC, etc )do not significantly interfere with this assay. However, presence of multiple variants may affect accu racy. Estimated Avg 140 (H) 68 - 131 [facility] Glucose mg/dL [facility] Specimen Blood - Blood Performing Organization Address [facility] Phon e Number [facility] [place] - [address] [place], [place] [address] [place] CBC auto differential (01/12/2019 5:46 AM FACIAL OPERATOR) Pathologist [facility] WBC 15.88 (H) 3.90 - 12.70 [facility] K/uL [facility] RBC 3.80 (L) 4.00 - 5.40 [facility] M/uL [facility] Hemoglobin 10.0 (L) 12.0 - 16.0 [facility] g/dL [facility] Hematocrit 32.2 (L) 37.0 - 48.5 [facility] MCV 85 82 - 98 fL [facility] [place] MCH 26.3 (L) 27.0 - 31.0 [facility] MCHC 31.1 (L) 32.0 - 36.0 [facility] g/dL [facility] RDW 13.9 11.5 - 14.5 [facility] Platelets 477 (H) 150 - 350 [facility] MPV 9.6 9.2 - 12.9 [facility] fL [facility] [place] Gran # (ANC) 11.3 (H) 1.8 - 7.7 [facility] [place] Lymph # 2.3 1.0 - 4.8 [facility] [place] Republic # 1.7 (H) 0.3 - 1.0 [facility] [place] Eos # 0.2 0.0 - 0.5 [facility] [place] Baso # 0.03 0.00 - 0.20 [facility] [place] Gran % 73.7 (H) 38.0 - 73.0 [facility] % [facility] [place] Lymph % 14.2 (L)Comment: 18.0 - 48.0 [facility] Rare atypical % [facility] lymphocytes seen [place] % 10.8 4.0 - 15.0 % [facility] [place] Eosinophil % 1.1 0.0 - 8.0 % [facility] [place] Basophil % 0.2 0.0 - 1.9 % [facility] [place] Platelet Estimate Increased (A) [facility] [place] Poly Occasional [facility] [place] Differential Method Automated [facility] [place] Specimen Blood - Blood Performing Organization Address City/State/ZIP Code Phon e Number [facility] [place] - [address] [facility] [place] [address] [place] Comprehensive metabolic panel (01/12/2019 5:46 AM FACIAL OPERATOR) Sodium 139 136 - 145 [facility] mmol/L [facility] Potassium 3.8 3.5 - 5.1 [facility] mmol/L [facility] Chloride 104 95 - 110 [facility] mmol/L [facility] CO2 28 23 - 29 [facility] mmol/L [facility] Glucose 138 (H) 70 - 110 [facility] mg/dL [facility] BUN 7 6 - 20 mg/dL [facility] [place] Creatinine 0.8 0.5 - 1.4 [facility] mg/dL [facility] Calcium 9.1 8.7 - 10.5 [facility] mg/dL [facility] Total Protein 7.3 6.0 - 8.4 [facility] g/dL [facility] Albumin 2.8 (L) 3.5 - 5.2 [facility] g/dL [facility] Total Bilirubin 0.7 0.1 - 1.0 [facility] Comment: mg/dL [facility] For infants and newborns, interpretation of results sh ould be based on gestational age, weight and in agreement with clini stefania observations. Premature Infant recommended reference ranges: Up to 24 hours.............<8.0 mg/dL Up to 48 hours............<12.0 mg/dL 3-5 days..................<15.0 mg/dL 6-29 days.................<15.0 mg/dL Alkaline 220 (H) 55 - 135 U/L [facility] Phosphatase [facility] AST 22 10 - 40 U/L [facility] [place] ALT 36 10 - 44 U/L [facility] [place] Anion Gap 7 (L) 8 - 16 [facility] mmol/L [facility] eGFR if >60 >60 [facility] [place] mL/min/1.73 [facility] m^2 eGFR if non >60 >60 [facility] Comment: mL/min/1.73 [facility] Calculation used to obtain the estimated glomerular fi ltration m^2 rate (eGFR) is the CKD-EPI equation. Specimen Blood - Blood Performing Organization Address City/State/ZIP Code Phon e Number [facility] [place] - [address] [facility] [place] [address] [place] Lactic acid, plasma #2 (01/11/2019 9:24 PM FACIAL OPERATOR) Lactate (Lactic 0.8 0.5 - 2.2 [facility] Acid) Comment: mmol/L [facility] Falsely low lactic acid results can be found in sample s containing >=13.0 mg/dL total bilirubin and/or >=3.5 m g/dL direct bilirubin. Specimen Blood - Blood Performing Organization Address City/[facility]/ZIP Code Phon e Number [facility] [place] - [address] [place] [address] [place] X-Ray Chest AP Portable (01/11/2019 5:13 PM FACIAL OPERATOR) Specimen Impressions Performed At [facility] No acute cardiopulmonary process identif ied. Electronically signed by: Maureen Calvin MD Date: 01/11/2019 Time: 17:28 Narrative Performed At EXAMINATION: [facility] FLUENCY XR CHEST AP PORTABLE CLINICAL HISTORY: Sepsis; TECHNIQUE: Single frontal view of the chest was per formed. COMPARISON: 10/30/2018. FINDINGS: Cardiac silhouette is normal in size. ??Lungs are symm etrically expanded. ??No evidence of focal consolidative process , pneumothorax, or significant effusion. ??No acute osse ous abnormality identified. Procedure Note Interface, Rad Results In - 01/11/2019 5:30 PM FACIAL OPERATOR EXAMINATION: XR CHEST AP PORTABLE CLINICAL HISTORY: Sepsis; TECHNIQUE: Single frontal view of the chest was per formed. COMPARISON: 10/30/2018. FINDINGS: Cardiac silhouette is normal in size. L ungs are symmetrically expanded. No evidence of focal consolidative process, pneumothorax, or significant effusion. No acute osseous abnormality identified. Impression: No acute cardiopulmonary process identif ied. Electronically signed by:Maureen Calvin MD Date:01/11/2019 Time:17:28 Performing Organization Address [facility]/ZIP Code Phon e Number [facility] FLUENCY [facility] FLUENCY n/a CT Abdomen Pelvis Without Contrast (01/11/2019 5:07 PM FACIAL OPERATOR) Specimen Impressions Performed At [facility] Postsurgical changes of recent hysterectomy with two a ir and fluid collections versus larger multilocular collection seen within the lower pelvis and left adnexal region likely reflecting developing abscess. Electronically signed by: Maureen Calvin MD Date: 01/11/2019 Time: 17:22 Narrative Performed At EXAMINATION: [facility] CT ABDOMEN PELVIS WITHOUT CONTRAST CLINICAL HISTORY: Infection, abdomen-pelvis; TECHNIQUE: Low dose axial images, sagittal and coronal reformatio ns were obtained from the lung bases to the pubic symphysis. ??Oral con trast was not administered. COMPARISON: CT abdomen and pelvis from 10/30/2018. FINDINGS: The visualized portion of the heart is unremarkable. ? ?The lung bases are clear. No significant hepatic abnormality seen on this noncon trast exam. ??There is no intra-or extrahepatic biliary ductal dil atation. ??The gallbladder is unremarkable. ??The stomach, pancreas, spleen, and adrenal glands are unremarkable. Kidneys show no evidence of stones or hydronephrosis. Ureters are difficult to track. ??Urinary bladder wall thickening is seen, noting nondistention. ??Postsurgical changes of recent hyster ectomy are seen with significant inflammatory changes are seen within the left lower quadrant. ??There are 2 separate versus larger multilo cular air and fluid collection suggestive for developing abscess. ?? These measure 6.0 x 4.5 cm inferiorly within the pelvis and 4.0 x 3. 5 cm within the left adnexal region. ??Few scattered colonic diverticu la are seen in the region. ??No evidence of abnormal small bowel dila tation or obstruction. ??Appendix is visualized and is unremarka ble. ??No significant free fluid seen. Aorta tapers normally. No acute osseous abnormality identified. Subcutaneous soft tissue structures are unremarkable. Procedure Note Interface, Rad Results In - 01/11/2019 5:25 PM FACIAL OPERATOR EXAMINATION: CT ABDOMEN PELVIS WITHOUT CONTRAST CLINICAL HISTORY: Infection, abdomen-pelvis; TECHNIQUE: Low dose axial images, sagittal and fidelia nal reformations were obtained from the lung bases to the pubic symphysis. Oral contrast was not administered. COMPARISON: CT abdomen and pelvis from 10/30/2018. FINDINGS: The visualized portion of the heart is u nremarkable. The lung bases are clear. No significant hepatic abnormality seen on this noncontrast exam. There is no intra-or extrahepatic biliary ductal dilatation. The gallbladder is unremarkable. The stomach, pancreas, spleen, and adrenal glands are unremarkable. Kidneys show no evidence of stones or hy dronephrosis. Ureters are difficult to track. Urinary bladder wall thickening is seen, noting nondistention. Postsurgical changes of recent hysterectomy are seen with significant inflammatory changes are see n within the left lower quadrant. There are 2 separate versus larger multilocular air and fluid collection suggestive for developing abscess. These measure 6.0 x 4.5 cm inferiorly within the pelvis and 4.0 x 3.5 cm withi n the left adnexal region. Few scattered colonic diverticula are seen in the region. No evidence of abnormal small bowel dilatation or obstruction. Appendix is visualized and is unremarkable. No significant brittaney e fluid seen. Aorta tapers normally. No acute osseous abnormality identified. Subcutaneous soft tissue structures are unremarkable. Impression: Postsurgical changes of recent hysterect cesar with two air and fluid collections versus larger multilocular collection seen within the lower pelvis and left adnexal region likely reflecting developing abscess. Electronically signed by:Maureen Calvin MD Date:01/11/2019 Time:17:22 Performing Organization Address [facility] Phon e Number MMODEL FLUENCY MMODEL FLUENCY n/a Urine culture (01/11/2019 4:51 PM FACIAL OPERATOR) Urine Culture, No significant [facility] Routine growth [facility] Specimen Urine Narrative Performed At Preferred Collection Type->Urine, Clean Catch [facility] Performing Organization Address [facility] Phon e Number [facility] [place] [facility] [address] [facility], [place] [id number] [place] [address] Urinalysis Microscopic (01/11/2019 4:51 PM FACIAL OPERATOR) RBC, UA 5 (H) 0 - 4 /hpf [facility] [place] WBC, UA 30 (H) 0 - 5 /hpf [facility] [place] WBC Clumps, UA Rare None-Rare [facility] [place] Bacteria Few (A) None-Occ /hpf [facility] [place] Squam Epithel, UA 10 /hpf [facility] [place] Microscopic Comment SEE COMMENT [facility] Comment: [facility] Other formed elements not mentioned in the report are not present in the microscopic examination. Specimen Narrative Performed At Preferred Collection Type->Urine, Clean Catch [facility] [place] Performing Organization Address [facility] Phon e Number [facility] [place] - [address] [place] [address] [place] Influenza A & B by Molecular (01/11/2019 4:51 PM FACIAL OPERATOR) Pathologist Sig nature Influenza A, Negative Negative [facility] [place] Influenza B, Negative Negative [facility] [place] Flu A & B Source Nasal swab [facility] [place] Specimen Nasopharyngeal Swab - Nasopharyngeal Swa b Performing Organization Address [facility]/ZIP Code Phon e Number [facility] [place] - [address] [facility] [place] [address] [place] Urinalysis, Reflex to Urine Culture Urine, Clean Catch (01/11/2019 4:51 PM FACIAL OPERATOR) Specimen UA Urine, Clean Catch [facility] [place] Color, UA Yellow Yellow, Straw, [facility] Lesley [facility] Appearance, UA Clear Clear [facility] [place] pH, UA 6.0 5.0 - 8.0 [facility] [place] Specific [place], <=1.005 (A) 1.005 - 1.030 [facility] UA [facility] Protein, UA Negative Negative [facility] Comment: [facility] Recommend a 24 hour urine protein or a urine protein/creatinine ratio if globulin induced proteinur ia is clinically suspected. Glucose, UA Negative Negative [facility] [place] Ketones, UA Negative Negative [facility] [place] Bilirubin (UA) Negative Negative [facility] [place] Occult Blood UA 2+ (A) Negative [facility] [place] Nitrite, UA Negative Negative [facility] [place] Urobilinogen, UA Negative <2.0 EU/dL [facility] [place] Leukocytes, UA 1+ (A) Negative [facility] [place] Specimen Urine - Urine Narrative Performed At Preferred Collection Type->Urine, Clean Catch [facility] [place] Performing Organization Address [facility]/ZIP Code Phon e Number [facility] [place] [facility] [address] [facility] [place] [address] [place] EKG 12-lead (01/11/2019 4:50 PM FACIAL OPERATOR) Specimen Narrative Performed At Test Reason : A41.9, ROGELIO GE MUSE Vent. Rate : 095 BPM ? Atrial Rate : 095 BPM ?? P-R Int : 130 ms ?QRS D ur : 080 ms ?QT Int : 362 ms ? P-R-T Axe s : 037 055 033 degrees ?? QTc Int : 454 ms Normal sinus rhythm Possible Left atrial enlargement Borderline Abnormal ECG When compared with ECG of 30-OCT-2018 00 :45, No significant change was found Confirmed by Cipriano JOSEPH, Fidel ([id number]) o n 01/12/2019 10:11:01 AM Referred By: AAAREFERR SELF ? Confirmed By:Fidel Cota MD Performing Organization Address [facility]/ZIP Code Phon e Number ROGELIO GE MUSE ROGELIO GE MUSE N/A ISTAT PROCEDURE (01/11/2019 4:45 PM FACIAL OPERATOR) Pathologist Sig nature POC PH 7.513 (H) 7.35 - 7.45 [facility] POC PCO2 33.3 (L) 35 - 45 mmHg [facility] POC PO2 26 (LL) 40 - 60 mmHg [facility] POC HCO3 26.7 24 - 28 mmol/L [facility] POC BE 4 -2 to 2 mmol/L [facility] POC SATURATED O2 55 (L) 95 - 100 % [facility] POC TCO2 28 24 - 29 mmol/L [facility] Sample VENOUS UNIPOC Site Nathaly/UAC UNIPOC Allens Test N/A [facility] DelSys Room Air [facility] Specimen Blood Performing Organization Address [facility] Phon e Number UNIPOC UNIPOC N/A Beta - Hydroxybutyrate, Serum (01/11/2019 4:38 PM FACIAL OPERATOR) Pathologist Sig nature Beta-Hydroxybutyrate 0.1 0.0 - 0.5 mmol/L [facility] [place] Specimen Blood - Blood Performing Organization Address [facility] Phon e Number [facility] [place] - [address] [facility] [address] [place] TSH (01/11/2019 4:32 PM FACIAL OPERATOR) Pathologist Sig nature TSH 2.270 0.400 - 4.000 uIU/mL [facility] Specimen Blood - Blood Performing Organization Address [facility]/ZIP [facility] Phon e Number [facility] [place] - [address] [facility] [address] [place] APTT (01/11/2019 4:32 PM FACIAL OPERATOR) aPTT 32.3 (H)Comment: aPTT 21.0 - 32.0 sec [facility] therapeutic range = [facility] 39-69 seconds Specimen Blood - Blood Performing Organization Address [facility]/ZIP Code Phon e Number [facility] [place] - [address] [facility] [place] [address] [place] Protime-INR (01/11/2019 4:32 PM FACIAL OPERATOR) Pathologist [facility] Prothrombin Time 10.2 9.0 - 12.5 [facility] INR 1.0 0.8 - 1.2 [facility] Comment: [facility] Coumadin Therapy: 2.0 - 3.0 for INR for all indicators except mechanical heart valves and antiphospholipid syndromes which should use 2.5 - 3.5. Specimen Blood - Blood Performing Organization Address City/[facility] Phon e Number [facility] [address] [facility] [place] [address] [place] Procalcitonin (01/11/2019 4:32 PM FACIAL OPERATOR) Pathologist [facility] Procalcitonin 0.12 <0.25 ng/mL [facility] Comment: [facility] A concentration < 0.25 ng/mL represents a low risk camila terial infection. Procalcitonin may not be accurate among patients with localized infection, recent trauma or major surgery, immunosuppr essed state, invasive fungal infection, renal dysfunction. Decision s regarding initiation or continuation of antibiotic therapy shoul d not be based solely on procalcitonin levels. Specimen Blood - Blood Performing Organization Address City/[facility] Code Phon e Number [facility] [address] [facility] [facility] [address] [place] [address] [place] Troponin I (01/11/2019 4:32 PM FACIAL OPERATOR) Pathologist [facility] Troponin I <0.006 0.000 - 0.026 [facility] Comment: ng/mL [facility] The reference interval for Troponin I represents the 9 9th percentile cutoff for our facility and is consistent with 3rd generation assay performance. Specimen Blood - Blood Performing Organization Address City/[facility]/ZIP Code Phon e Number [facility] [address] [facility] [place] [address] [place] Lactic acid, plasma #1 (01/11/2019 4:32 PM FACIAL OPERATOR) Pathologist [facility] Lactate (Lactic 1.0 0.5 - 2.2 [facility] Acid) Comment: mmol/L [facility] Falsely low lactic acid results can be found in sample s containing >=13.0 mg/dL total bilirubin and/or >=3.5 m g/dL direct bilirubin. Specimen Blood - Blood Performing Organization Address City/State/ZIP Code Phon e Number [facility] [place] - [address] [place] [address] [address] [place] Comprehensive metabolic panel (01/11/2019 4:32 PM FACIAL OPERATOR) Sodium 139 136 - 145 [facility] mmol/L [facility] Potassium 3.8 3.5 - 5.1 [facility] mmol/L [facility] Chloride 101 95 - 110 [facility] mmol/L [facility] CO2 27 23 - 29 [facility] mmol/L [facility] Glucose 133 (H) 70 - 110 [facility] mg/dL [facility] BUN 7 6 - 20 mg/dL [facility] [place] Creatinine 0.9 0.5 - 1.4 [facility] mg/dL [facility] Calcium 9.9 8.7 - 10.5 [facility] mg/dL [facility] Total Protein 8.3 6.0 - 8.4 [facility] g/dL [facility] Albumin 3.2 (L) 3.5 - 5.2 [facility] g/dL [facility] Total Bilirubin 0.6 0.1 - 1.0 [facility] Comment: mg/dL [facility] For infants and newborns, interpretation of results sh ould be based on gestational age, weight and in agreement with clini stefania observations. Premature recommended reference ranges: Up to 24 hours.............<8.0 mg/dL Up to 48 hours............<12.0 mg/dL 3-5 days..................<15.0 mg/dL 6-29 days.................<15.0 mg/dL Alkaline 267 (H) 55 - 135 U/L [facility] Phosphatase [facility] AST 25 10 - 40 U/L [facility] [place] ALT 47 (H) 10 - 44 U/L [facility] [place] Anion Gap 11 8 - 16 [facility] mmol/L [facility] eGFR if >60 >60 [facility] [place] mL/min/1.73 [facility] m^2 eGFR if non >60 >60 [facility] Comment: mL/min/1.73 [facility] Calculation used to obtain the estimated glomerular fi ltration m^2 rate (eGFR) is the CKD-EPI equation. Specimen Blood - Blood Performing Organization Address City/State/ZIP Code Phon e Number [facility] [place] - [address] [facility] [place] [address] [place] CBC auto differential (01/11/2019 4:32 PM FACIAL OPERATOR) Pathologist Sig nature WBC 23.19 (H) 3.90 - 12.70 [facility] K/[facility] RBC 4.18 4.00 - 5.40 [facility] M/[facility] Hemoglobin 11.1 (L) 12.0 - 16.0 [facility] g/dL [facility] Hematocrit 34.9 (L) 37.0 - 48.5 % [facility] MCV 84 82 - 98 fL [facility] [place] MCH 26.6 (L) 27.0 - 31.0 pg [facility] MCHC 31.8 (L) 32.0 - 36.0 [facility] g/dL [facility] RDW 13.9 11.5 - 14.5 % [facility] Platelets 513 (H) 150 - 350 K/uL [facility] [place] [facility] 9.7 9.2 - 12.9 fL [facility] [place] Gran # (ANC) 15.8 (H) 1.8 - 7.7 K/uL [facility] [place] Lymph # 4.3 1.0 - 4.8 K/uL [facility] [place] Republic # 2.1 (H) 0.3 - 1.0 K/uL [facility] [place] Eos # 0.1 0.0 - 0.5 K/uL [facility] [place] Baso # 0.10 0.00 - 0.20 [facility] K/uL [facility] Gran % 71.4 38.0 - 73.0 % [facility] [place] Lymph % 18.6 18.0 - 48.0 % [facility] [place] [facility] [place] Republic % 9.0 4.0 - 15.0 % [facility] [place] [facility] [place] Eosinophil % 0.6 0.0 - 8.0 % [facility] [place] [facility] [place] Basophil % 0.4 0.0 - 1.9 % [facility] [place] [facility] [place] Differential Method Automated [facility] [place] Specimen Blood - Blood Performing Organization Address [facility] Phon e Number [facility] [place] - [address] [place] [address] [place] (01/11/2019 4:25 PM FACIAL OPERATOR) Narrative Performed At Dieter Casillas MD ? 01/12/2019 ??5:40 PM Critical Care Date/Time: 01/11/2019 6:11 PM Performed by: Dieter Casillas MD Authorized by: Dieter Casillas MD Total critical care time (exclusive of p rocedural time) : 35 minutes Critical care was necessary to treat or prevent imminent or life-threatening deterioration of the fo llowing conditions: sepsis. Blood culture x two cultures. Draw prior to antibiotics. (01/11/2019 4:20 PM FACIAL OPERATOR) Pathologist Sig nature Blood Culture, No growth after [facility] Routine 5 days. [facility] Specimen Blood - Peripheral, Antecubital, Right Narrative Performed At Aerobic and anaerobic [facility] Performing Organization Address [facility] Phon e Number [facility] [place] - [facility] [address] [place] [address] [place] Blood culture x two cultures. Draw prior to antibiotics. (01/11/2019 4:15 PM FACIAL OPERATOR) Pathologist Sig nature Blood Culture, No growth after [facility] Routine 5 days. [facility] Specimen Blood - Peripheral, Antecubital, Left Narrative Performed At Aerobic and anaerobic [facility] Performing Organization Address [facility] Phon e Number [facility] [place] - [facility] [address] [place] [address] [place] EKG 12-LEAD (01/11/2019 12:00 AM FACIAL OPERATOR) Narrative Performed At This result has an attachment that is no t available. documented in this encounter Visit Diagnoses Diagnosis Postoperative infection - Primary Other postoperative infection Sepsis Post op infection Other postoperative infection Abscess Cellulitis and abscess of unspecified si te Prediabetes Other abnormal glucose Pelvic abscess in female A-fib Atrial fibrillation Essential hypertension Morbid obesity documented in this encounter Admitting Diagnoses Diagnosis Post op infection Other postoperative infection documented in this encounter Administered Medications Inactive Administered Medications - up to 3 most recent administrations Medication Order MAR Action Action Date Dose Rate Site 0.9% NaCl infusion New Bag 01/13/2019 2:39 PM FACIAL OPERATOR 75 mL/hr 75 mL/hr Intravenous, Code/trauma/sedation continuous med, Starting on Deann 01/13/19 at 1439 acetaminophen tablet 1,000 mg Given 01/11/2019 5:46 PM FACIAL OPERATOR 1,000 mg 1,000 mg, Oral, ED 1 Time, On Thu01/11/19 at 1745, For 1 dose dextrose 10% (D10W) Bolus 125 mL (12.5 g), Intravenous, Administer over 7.5 Rosalva shasha, As needed (PRN), For blood glucose, between 51 - 70 mg/dL if patient cannnot take PO or oral glucose is not ordered, (12.5g = 125 mL), Starting on Thu01/12/19 at 0935 dextrose 10% (D10W) Bolus 250 mL (25 g), Intravenous, Administer o grayson 15 Minutes, As needed (PRN), For blood glucose, less than 50 mg/dL if patient cannnot take PO or oral glucose is not ordered, (25 g = 250 mL), Starting on Thu01/12/19 at 0 935 docusate sodium capsule 100 mg Given 01/14/2019 9:13 AM FACIAL OPERATOR 100 mg 100 mg, Oral, 2 times daily, First dose on Thu01/14/19 at 0900 fentaNYL injection Given 01/13/2019 3:20 PM FACIAL OPERATOR 50 mcg Intravenous, Code/trauma/sedation medication, Starting on Deann 01/13/19 at 1445 Given 01/13/2019 2:55 PM FACIAL OPERATOR 50 mcg Given 01/13/2019 2:50 PM FACIAL OPERATOR 50 mcg glucagon (human recombinant) injection 1 mg 1 mg, Intramuscular, As needed (PRN), Bl ood Glucose less than, 70 mg/dL if patient is unconscious or obtunded and DOES NOT HAVE IV ACCESS., Starting on Thu01/12/19 at 0915 glucose chewable tablet 16 g 16 g, Oral, As needed (PRN), For blood g lucose, 50-70 mg/dL X 1 dose for patients who can take PO., Starting on Thu01/12/19 at 09 glucose chewable tablet 24 g 24 g, Oral, As needed (PRN), Blood Glucose less than, 50 mg/dL X 1 dose for patients who can take PO., Starting on Thu01/12/19 at 0915 hydroCHLOROthiazide tablet 12.5 mg Given 01/14/2019 9:13 AM FACIAL OPERATOR 12.5 mg 12.5 mg, Oral, Daily, First dose on Thu01/12/19 at 0900 Given 01/13/2019 8:50 AM FACIAL OPERATOR 12.5 mg Given 01/12/2019 8:52 AM FACIAL OPERATOR 12.5 mg HYDROmorphone injection 1 mg Given 01/11/2019 4:45 PM FACIAL OPERATOR 1 mg 1 mg, Intravenous, ED 1 Time, On Thu01/11/19 at 1645, For 1 dose HYDROmorphone injection 1 mg Given 01/11/2019 5:46 PM FACIAL OPERATOR 1 mg 1 mg, Intravenous, ED 1 Time, On Thu01/11/19 at 1745, For 1 dose HYDROmorphone injection 1 mg Given 01/13/2019 9:56 PM FACIAL OPERATOR 1 mg 1 mg, Intravenous, Every 4 hours PRN, moderate pain 4-6/10 pain scale, breakthrough pain, Starting on Thu01/11/19 at 2121 Given 01/12/2019 8:29 PM FACIAL OPERATOR 1 mg Given 01/12/2019 5:53 AM FACIAL OPERATOR 1 mg ibuprofen tablet 600 mg Given 01/12/2019 5:30 AM FACIAL OPERATOR 600 mg 600 mg, Oral, Every 6 hours, First dose on Thu01/12/19 at 0000 Given 01/12/2019 12:42 AM FACIAL OPERATOR 600 mg insulin aspart U-100 pen 0-5 Units 0-5 Units, Subcutaneous, Before meals & nightly PRN, F or blood glucose, Hyperglycemia, Starting on Thu01/12/19 at 0920 iohexol (OMNIPAQUE 350) injection 100 mL Given 01/13/2019 2:41 PM FACIAL OPERATOR 100 mLs 100 mL, Intravenous, IMG once as needed, contrast, IV Contrast for CT Scan, Starting on Deann 01/13/19 at 1558, For 1 dose ketorolac injection 30 mg Given 01/11/2019 8:00 PM FACIAL OPERATOR 30 mg 30 mg, Intravenous, Once, On Thu01/11/19 at 2000, For 1 dose ketorolac injection 30 mg Given 01/13/2019 12:40 AM FACIAL OPERATOR 30 mg 30 mg, Intravenous, Every 8 hours PRN, moderate pain 4-6/10 pain scale, cramping, Starting on Thu01/12/19 at 0859, For 24 hours Given 01/12/2019 1:35 PM FACIAL OPERATOR 30 mg lidocaine HCL 10 mg/ml (1%) injection Given 01/13/2019 2:50 PM FACIAL OPERATOR 10 mLs Other, Code/trauma/sedation medication, Starting on Thu01/13/19 at 1450 metoprolol succinate (TOPROL-XL) 24 hr tablet Given 9:13 AM FACIAL OPERATOR 50 mg 50 mg 50 mg, Oral, Daily, First dose on Thu01/12/19 at 0900 Given 01/13/2019 8:50 AM FACIAL OPERATOR 50 mg Given 01/12/2019 8:52 AM FACIAL OPERATOR 50 mg midazolam (VERSED) 1 mg/mL injection Given 01/13/2019 2:55 PM FACIAL OPERATOR 1 mg Code/trauma/sedation medication, Starting on Thu01/13/19 at 1450 Given 01/13/2019 2:50 PM FACIAL OPERATOR 1 mg ondansetron injection 4 mg Given 01/11/2019 4:45 PM FACIAL OPERATOR 4 mg 4 mg, Intravenous, ED 1 Time, On Thu01/11/19 at 1645, For 1 dose ondansetron injection 4 mg Given 01/13/2019 9:54 AM FACIAL OPERATOR 4 mg 4 mg, Intravenous, Every 8 hours PRN, Nausea/Vomiting (1st choice) - use as first treatment, Starting on Thu01/11/19 at 2120 Given 01/12/2019 8:27 PM FACIAL OPERATOR 4 mg Given by Other 01/11/2019 10:16 PM FACIAL OPERATOR 4 mg oxyCODONE-acetaminophen 10-325 mg per Given 01/14/2019 3:24 PM FACIAL OPERATOR 1 tablet tablet 1 tablet 1 tablet, Oral, Every 4 hours PRN, severe pain 7-10/10 pain scale, Starting on Thu01/11/19 at 2120 Given 01/14/2019 10:26 AM FACIAL OPERATOR 1 tablet Given 01/14/2019 5:30 AM FACIAL OPERATOR 1 tablet oxyCODONE-acetaminophen 5-325 mg per tab let 1 tablet 1 tablet, Oral, Every 4 hours PRN, moder ate pain 4-6/10 pain scale, Starting on Thu01/11/19 at 2120 piperacillin-tazobactam 4.5 g in New Bag 01/11/2019 4:[address] 4.5 g 200 mL/hr dextrose 5 % 100 mL IVPB (ready to mix system) 4.5 g, Intravenous, Administer over 30 Minutes, ED 1 Time, On Thu01/11/19 at 1645, For 1 dose, START THIS ANTIBIOTIC FIRST piperacillin-tazobactam 4.5 g in New Bag 01/14/2019 9:[address] 4.5 g 200 mL/hr dextrose 5 % 100 mL IVPB (ready to mix system) 4.5 g, Intravenous, Administer over 30 Minutes, Every 8 hours (non-standard times), First dose (after last reorder) on Thu01/12/19 at 0100, START THIS ANTIBIOTIC FIRST New 01/14/2019 1:19 AM FACIAL OPERATOR 4.5 g 200 mL/hr 01/13/2019 4:19 PM FACIAL OPERATOR 4.5 g 200 mL/hr promethazine (PHENERGAN) 12.5 mg 01/13/2019 9:[address] 12.5 mg 150 mL/hr in dextrose 5 % 50 mL IVPB 12.5 mg, Intravenous, Administer over 20 Minutes, Every 6 hours PRN, Nausea/Vomiting (2nd choice) - use if first choice is not effective, Starting on Thu01/11/19 at 212001/13/2019 11:41 AM FACIAL OPERATOR 12.5 mg 150 mL/hr sodium chloride 0.9% bolus 3,660 mL 01/11/2019 4:46 PM FACIAL OPERATOR 3,660 mLs 3,660 mL (30 mL/kg ? 122 kg), Intravenous, ED 1 Time, On Thu01/11/19 at 1645, For 1 dose sodium chloride 0.9% flush 10 mL 10 mL, Intravenous, As needed (PRN), Line Care, Starti ng on Thu01/11/19 at 2120 vancomycin (VANCOCIN) 2,000 mg 01/11/2019 5:46 PM FACIAL OPERATOR 2,000 mg 250 mL/hr in dextrose 5 % 500 mL IVPB 2,000 mg, Intravenous, Administer over 120 Minutes, ED 1 Time, On Thu01/11/19 at 1645, For 1 dose, START THIS ANTIBIOTIC SECOND documented in this encounter Active and Recently Administered Medications Times are shown in FACIAL OPERATOR. Scheduled Medication Order 01/12/2019 01/13/2019 01/14/2019 docusate sodium capsule 100 mg 0 913 (Given - Provider: Latrice Larose RN) 100 mg, Oral, 2 times daily, First dose on Thu01/14/19 at 0900 hydroCHLOROthiazide tablet 12.5 mg 0852 (Given - Provider: Russ Orellana RN) 0850 (Given - Provider: Sheyla Collins, DIANDRA) 0913 (Given - Provider: Latrice Larose RN) 12.5 mg, Oral, Daily, First dose on Thu01/12/19 at 0900 ibuprofen tablet 600 mg (CANCELED) 0042 (Given - Provi keyur: Ashtyn Meraz LPN)0530 (Given - Provider: Ashtyn Meraz LPN) 600 mg, Oral, Every 6 hours, First dose on Thu01/12/19 at 0000 metoprolol succinate (TOPROL-XL) 24 hr tablet 50 mg 08 52 (Given - Provider: Ethel Orellana RN) 0850 (Given - Provider: Sheyla Collins RN) 0913 (Gi manjula - Provider: Latrice Larose RN) 50 mg, Oral, Daily, First dose on Thu01/12/19 at 0900 piperacillin-tazobactam 4.5 g in dextros e 5 % 100 mL IVPB (ready to mix system) (CANCELED) 0045 (New Bag - Provider: Ashtyn sheppard LPN)0115 (Stopped - Provider: Ashtyn Meraz LPN)0853 (New Bag - Provider: Ethel Orellana RN)1626 (New Bag - Provider: Ethel Orellana RN)2052 (Stopped - Provider: Simon Rose, DIANDRA) 0040 (New Bag - Provider: Simon Rose , RN)0850 (New Bag - Provider: Sheyla Collins RN)1619 (New Bag - Provider: Sheyla Collins, RN) 0119 (New Bag - Provider: Simon Rose, RN)0913 (New Bag - Provider: Latrice Larose, DIANDRA) 4.5 g, Intravenous, Administer over 30 M inutes, Every 8 hours (non-standard times), First dose on Thu01/12/19 at 0100, START THIS ANTIBIOTIC FIRST PRN Medication Order 01/12/2019 01/13/2019 01/14/2019 0.9% NaCl infusion (COMPLETED) 1439 (New Bag - Provider: Belgica Liz, DIANDRA) Intravenous, Code/trauma/sedation continuous med, Starting T hu 01/13/19 at 1439 dextrose 10% (D10W) Bolus 125 mL (12.5 g), Intravenous, Administer over 7.5 Minutes, As needed (PRN), For blood glucose, between 51 - 70 mg/dL if patient cannnot take PO or oral glucose is not ordered, (12.5g = 125 mL), Starting Thu01/12/19 at 0935 dextrose 10% (D10W) Bolus 250 mL (25 g), Intravenous, Administer o grayson 15 Minutes, As needed (PRN), For blood glucose, less than 50 mg/dL if patient cannnot take PO or oral glucose is not ordered, (25 g = 250 mL), Starting Thu01/12/19 at 0935 fentaNYL injection (COMPLETED) 1450 (Giv en - Provider: Belgica Liz, DIANDRA)1455 (Given - Provider: Belgica Liz, DIANDRA)1520 (Given - Provider: Belgica Liz, DIANDRA) Intravenous, Code/trauma/sedation medication, Starting Deann at 1445 glucagon (human recombinant) injection 1 mg 1 mg, Intramuscular, As needed (PRN), Bl ood Glucose less than, 70 mg/dL if patient is unconscious or obtunded and DOES NOT HAVE IV ACCESS., Starting Thu01/12/19 at 0915 glucose chewable tablet 16 g 16 g, Oral, As needed (PRN), For blood g lucose, 50-70 mg/dL X 1 dose for patients who can take PO., Starting Thu01/12/19 at 0915 glucose chewable tablet 24 g 24 g, Oral, As needed (PRN), Blood Gluco se less than, 50 mg/dL X 1 dose for patients who can take PO., Starting Thu01/12/19 at 0915 HYDROmorphone injection 1 mg 0553 (Given - Provider: Ron Chiang, DIANDRA)2028 (Given - Provider: Simon Rose, RN) 2155 (Given - Provider: Simon Rose, RN) 1 mg, Intravenous, Every 4 hours PRN, mo derate pain 4-6/10 pain scale, breakthrough pain, Starting Thu01/11/19 at 2121 insulin aspart U-100 pen 0-5 Units 0-5 Units, Subcutaneous, Before meals & nightly PRN, For blood glucose, Hyperglycemia, Starting Thu01/12/19 at 0920 iohexol (OMNIPAQUE 350) injection 100 mL (COMPLETED) 1441 (Given - Provider: Seamus Stevenson, RT) 100 mL, Intravenous, IMG once as needed, contrast, IV Contrast for CT Scan, Starting Thu01/13/19 at 1558, For 1 dose ketorolac injection 30 mg () 1335 (Given - Prov ider: Ethel Orellana RN)1950 (Return to Cabinet - Provider: Simon Rose RN) 0040 (Given - Provider: Simon Rose RN) 30 mg, Intravenous, Every 8 hours PRN, m oderate pain 4-6/10 pain scale, cramping, Starting Thu01/12/19 at 0859, For 24 hours lidocaine HCL 10 mg/ml (1%) injection (COMPLETED) 1450 (Given - Provider: Vaughn Lomax II, MD) Other, Code/trauma/sedation medication, Starting Thu01/13/19 at 1450 midazolam (VERSED) 1 mg/mL injection (COMPLETED) 1450 (Given - Provider: Belgica Liz, DIANDRA)1455 (Given - Provider: Belgica Liz RN) Code/trauma/sedation medication, Starting Thu01/13/19 at 1450 ondansetron injection 4 mg 2026 (Given - Provider: Simon Rose RN) 0954 (Given - Provider: Sheyla Collins, DIANDRA)2143 (Not Given - Provider: Simon Rose RN - Reason: Patient/family refused) 4 mg, Intravenous, Every 8 hours PRN, Na usea/Vomiting (1st choice) - use as first treatment, Starting 01/11/19 at 2120 oxyCODONE-acetaminophen 10-325 mg per tablet 1 tablet 0530 (Given - Provider: Ashtyn Meraz LPN) 0952 (Given - Provider: Sheyla Collins , RN)1619 (Given - Provider: Sheyla Collins RN) 0530 (Given - Provider: Simon Rose RN)1026 (Given - Provider: Latrice Larose, DIANDRA)1524 (Given - Provider: Latrice Larose RN) 1 tablet, Oral, Every 4 hours PRN, sever e pain 7-10/10 pain scale, Starting 01/11/19 at 2120 oxyCODONE-acetaminophen 5-325 mg per tablet 1 tablet 1 tablet, Oral, Every 4 hours PRN, moder ate pain 4-6/10 pain scale, Starting 01/11/19 at 2120 promethazine (PHENERGAN) 12.5 mg in dextrose 5 % 50 mL IVPB 1141 (New Bag - Provider: Sheyla Collins RN)2155 (New Bag - Provider: Simon Rose, DIANDRA)2215 (Stopped - Provider: Simon Rose RN) 12.5 mg, Intravenous, Administer over 20 Minutes, Every 6 hours PRN, Nausea/Vomiting (2nd choice) - use if first choice is not effective, Starting 01/11/19 at 2120 sodium chloride 0.9% flush 10 mL 10 mL, Intravenous, As needed (PRN), Line Care, Starting 01/11/19 at 2120 documented in this encounter
--- OUTSIDE RECORDS SUMMARY | 2020-04-15 13:31 | XMS_ITS | Encounter Summary ---
:1975 Author Organization [facility] and [employer] Subsidiaries and Affiliates Address [address] [place] [address] Care Team Providers Name Role Phone No, Doctor Primary Care Provider Unavailable Reason for Referral Consultation (Routine) Status Reason Specialty Diagnoses / Procedures Referred By C ontact Referred To Contact Cl[facility] Fitness Diagnoses Paroxysmal atrial fibrillation A-fib Nam Agustin MD [address] [facility] Phone: Electronically signed by Nam Agustin MD at Reason for Visit Reason Comments Atrial Fibrillation Hypertension Obesity management of CV risk factors Encounter Details Date Type Department Care Team Description 04/19/2018 Office Visit [facility] - Cardiology Aissatou Agustin MD Paroxysmal atrial fibrillation (Primary Dx); - [facility]OB [place] [address] A-fib; [address], [place] [address] Mixed hyperlipidemia; [place] [address] [place] [address] Essential hypertension; [place] Walker [phone] Morbid obesity; [id number] Hyperglycemia [phone] 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 How [...] Sign Reading Time Taken Comments Blood Pressure 135/83 04/19/2018 8:01 AM CREAM RIPENER Pulse 78 04/19/2018 8:01 AM CREAM RIPENER Temperature - - Respiratory Rate - - Oxygen Saturation 90% 04/19/2018 8:01 AM CREAM RIPENER Inhaled Oxygen Concentration - - Weight 117.5 kg (259 lb 1.6 oz) 04/19/2018 8:01 AM CREAM RIPENER Height 167.6 cm (5' 6) 04/19/2018 8:01 AM CREAM RIPENER Body Mass Index 41.82 04/19/2018 8:01 AM CREAM RIPENER documented in this encounter Patient Instructions Patient InstructionsNam Agustin MD - 04/19/2018 8:00 AM CST Discharge Instructions for Atrial Fibrillation You have been diagnosed with an abnormal heart rhythm called atrial fibrillation.??With this condition, your heart???s 2 upper chambers quiver rather than squeeze the blood out in a normal pattern. This leads to an irregular and sometimes rapid heartbeat. Some people will develop associated symptoms such as a flip-flopping heartbeat, chest pain, lightheadedness, or shortness of breath. Other people may have no symptoms at all. Atrial fibrillation is serious because it affects the heart???s ability to fill with blood as it should. Blood clots may form. This increases the risk for stroke. Untreated atrial fibrillation can also lead to heart failure. Atrial fibrillation can be controlled. With??treatment, most??people with atrial fibrillation lead normal lives. Treatment options Recommended treatment for atrial fibrillation depends on your age, symptoms, how long you have had atrial fibrillation, and other factors. You will have??a complete evaluation to find out if you have any abnormalities that caused your heart to go into atrial fibrillation. This might be blocked heart arteries or a thyroid problem. Your doctor will assess your particular case and discuss choices with you. Treatment choices may include: ?? Treating an underlying??disorder that puts you at risk for atrial fibrillation. For example, correcting an abnormal thyroid or electrolyte problem, or treating a blocked heart artery. ?? Restoring a normal heart rhythm with an electrical shock (cardioversion) or with an antiarrhythmic medicine (chemical cardioversion) ?? Using medicine to control your heart rate in atrial fibrillation. ?? Preventing the??risk for blood clot and stroke using blood-thinning medicines. Your doctor will tell you what he or she??recommends. Choices may include aspirin, clopidogrel, warfarin, dabigatran, rivaroxaban, apixaban, and edoxaban. ?? Doing catheter ablation or a surgical maze procedure. These??use different methods to destroy certain areas of heart tissue. This interrupts the electrical signals causing atrial fibrillation.??One of these procedures may be a choice when??medicines do not work, or as an alternative to long-term medicine. ?? Other treatment choices may be recommended for you by your doctor. Managing risk factors for stroke and preventing heart failure are important parts of any??treatment plan for atrial fibrillation. Home care ?? Take your medicines exactly as directed. Don???t skip doses. ?? Work with your doctor to find the right medicines and doses for you. ?? Learn to take your own pulse. Keep a record of your results. Ask your doctor which pulse rates mean that you need medical attention. Slowing your pulse is often the goal of treatment. Ask your doctor if it???s OK for you to use an automatic machine to check your pulse at home. Sometimes these machines don???t count the pulse correctly when you have atrial fibrillation. ?? Limit your intake of coffee, tea, cola, and other beverages with caffeine. Talk??with your doctorabout whether you should eliminate caffeine. ?? Avoid zpmc-yux-sfidiyx medicines that have caffeine in them. ?? Let your doctor know what medicines you take, including prescription and xwyj-nov-ryyojtf medicines, as well as any supplements. They interfere with some medicines given for atrial fibrillation. ?? Ask your doctor about whether??you can drink alcohol. Some people need to avoid??alcohol??to better treat atrial fibrillation. If you are taking blood- thinner medicines, alcohol may interfere with them by increasing their effect. ?? Never take stimulants such as amphetamines or cocaine. These drugs can speed up??your heart rate and trigger atrial fibrillation. Follow-up care Follow up with your doctor, or as advised. ?? When should I call my healthcare provider Call your healthcare provider right away if you have any of the following: ?? Weakness ?? Dizziness ?? Fainting ?? Fatigue ?? Shortness of breath ?? Chest pain with increased activity ?? A change in the usual regularity of your heartbeat, or an unusually fast heartbeat Date Last Reviewed: 06/30/2015 ?? [id number] [employer]. [address] [place] [address], [place] [address]. All rights reserved. This information is not intended as a substitute for professional medical care. Always follow your healthcare professional's instructions. M RIPENER documented in this encounter Progress Notes Nam Agustin MD - 04/19/2018 8:00 AM CST Subjective: Patient ID: Remedios Schofield is a 43 y.o. female who presents for evaluation and treatment of AtrialFibrillation; Hypertension; Obesity; and management of CV risk factors HPI: She is here to establish care for cardiovascular disease. She has PAF, HTN, HLP, obesity with BMI 42, and DM II with HgA1c 6.0. Regarding atrial fibrillation her episode was nearly 15 years ago. She had DCCV 2014 at [facility] then started on Sotalol 160 mg po bid. She stopped it 3 years ago. In 2018 she presented with afib with RVR requiring cardizem gtt. She was discharged on sotalol 80 mg daily. No anticoagulation. ECG 04/2018: NSR Family history of premature CAD 10 yr CV risk 3% [id number] score 3 with HTN + DM II + sex Down to 1 without HTN + DM II Patient Active Problem List Diagnosis Date Noted ??? Hyperglycemia 03/28/2018 ??? Atrial fibrillation with RVR 03/26/2018 ??? Morbid obesity 03/26/2018 ??? Bronchitis 04/29/2017 ??? Wheezing 04/29/2017 ??? Essential hypertension 11/27/2016 ??? A-fib [id number] score 3 with HTN + DM II + sex Down to 1 without HTN + DM II Right Arm BP - Sittin/83 Left Arm BP - Sittin/82 LABS LAST HbA1c Lab Results Component Value Date HGBA1C 6.0 (H) 03/27/2018 Lipid panel Lab Results Component Value Date CHOL 206 (H) 02/04/2017 CHOL 187 04/26/2014 Lab Results Component Value Date HDL 49 02/04/2017 Lab Results Component Value Date LDLCALC 125.4 02/04/2017 Lab Results Component Value Date TRIG 158 (H) 02/04/2017 Lab Results Component Value Date CHOLHDL 23.8 02/04/2017 Review of Systems Constitution: Negative for diaphoresis, weakness, night sweats, weight gain and weight loss. HENT: Negative for congestion. Eyes: Negative for blurred vision, discharge and double vision. Cardiovascular: Negative for chest pain, claudication, cyanosis, dyspnea on exertion, irregular heartbeat, leg swelling, near-syncope, orthopnea, palpitations, paroxysmal nocturnal dyspnea and syncope. Respiratory: Negative for cough, shortness of breath and wheezing. Endocrine: Negative for cold intolerance, heat intolerance and polyphagia. Hematologic/Lymphatic: Negative for adenopathy and bleeding problem. Does not bruise/bleed easily. Skin: Negative for dry skin and nail changes. Musculoskeletal: Negative for arthritis, back pain, falls, joint pain, myalgias and neck pain. Gastrointestinal: Negative for bloating, abdominal pain, change in bowel habit and constipation. Genitourinary: Negative for bladder incontinence, dysuria, flank pain, genital sores and missed menses. Neurological: Negative for aphonia, brief paralysis, difficulty with concentration and dizziness. Psychiatric/Behavioral: Negative for altered mental status and memory loss. The patient does not have insomnia. Allergic/Immunologic: Negative for environmental allergies. Objective: Physical Exam Constitutional: She is oriented to person, place, and time. She appears well- developed and well-nourished. She is not intubated. HENT: Head: Normocephalic and atraumatic. Right Ear: External ear normal. Left Ear: External ear normal. Mouth/Throat: Oropharynx is clear and moist. Eyes: Conjunctivae and EOM are normal. Pupils are equal, round, and reactive to light. Right eye exhibits no discharge. Left eye exhibits no discharge. No scleral icterus. Neck: Normal range of motion. Neck supple. Normal carotid pulses, no hepatojugular reflux and no JVDpresent. Carotid bruit is not present. No tracheal deviation present. No thyromegaly present. Cardiovascular: Normal rate, regular rhythm, S1 normal and S2 normal. No extrasystoles are present.PMI is not displaced. Exam reveals no gallop, no S3, no distant heart sounds, no friction rub and nomidsystolic click. No murmur heard. Pulses: Carotid pulses are 2+ on the right side, and 2+ on the left side. Radial pulses are 2+ on the right side, and 2+ on the left side. Femoral pulses are 2+ on the right side, and 2+ on the left side. Popliteal pulses are 2+ on the right side, and 2+ on the left side. Dorsalis pedis pulses are 2+ on the right side, and 2+ on the left side. Posterior tibial pulses are 2+ on the right side, and 2+ on the left side. Pulmonary/Chest: Effort normal and breath sounds normal. No accessory muscle usage or stridor. No apnea, no tachypnea and no bradypnea. She is not intubated. No respiratory distress. She has no decreased breath sounds. She has no wheezes. She has no rales. She exhibits no tenderness and no bony tenderness. Abdominal: She exhibits no distension, no pulsatile liver, no abdominal bruit, no ascites, no pulsatile midline mass and no mass. There is no tenderness. There is no rebound and no guarding. Musculoskeletal: Normal range of motion. She exhibits no edema or tenderness. Lymphadenopathy: She has no cervical adenopathy. Neurological: She is alert and oriented to person, place, and time. She has normal reflexes. No cranial nerve deficit. Coordination normal. Skin: Skin is warm. No rash noted. No erythema. No pallor. Psychiatric: She has a normal mood and affect. Her behavior is normal. Judgment and thought content normal. Assessment: 1. Paroxysmal atrial fibrillation 2. A-fib 3. Mixed hyperlipidemia 4. Essential hypertension 5. Morbid obesity 6. Hyperglycemia Plan: Weight loss is imperative for her at this point At least 50 lbs If she loses the weight her HTN and DM will resolve Otherwise her [id number] score will remain > 2 and will need anti-coagulation She is willing to lose weight Diet Exercise [place] fitness Consider bariatric evaluation Stop sotalol Start flecainide 300 mg prn PAF as pill in the pocket method Referral to EP if PAF becomes a recurrent problem Continue with current medical plan and lifestyle changes. Return sooner for concerns or questions. If symptoms persist go to the ED I have reviewed all pertinent data on this patient I have reviewed the patient's medical history in detail and updated the computerized patient record. Orders Placed This Encounter Procedures ??? Hemoglobin A1c Standing Status: Future Standing Expiration Date: 06/18/2019 ??? Lipid panel Standing Status: Future Standing Expiration Date: 06/18/2019 ??? Ambulatory Referral to [facility] ([facility]) Referral Priority: Routine Referral Type: Consultation Number of Visits Requested: 1 ??? Rudit Patient Entered [facility] ([facility]) ??? IN OFFICE EKG 12-LEAD (to [place]) Order Specific Question: Diagnosis Answer: A-fib [350571] ??? Transthoracic echo (TTE) complete ([facility] Only) Standing Status: Future Standing Expiration Date: 04/19/2019 Follow up as scheduled. Return sooner for concerns or questions Follow up in 6 months in [facility] clinic with labs + echo She expressed verbal understanding and agreed with the plan Patient's Medications New Prescriptions FLECAINIDE (TAMBOCOR) 150 MG TAB Take 1 tablet (150 mg total) by mouth continuous prn. Take 2 tablets for atrial fibrillation LOSARTAN (COZAAR) 100 MG TABLET Take 1 tablet (100 mg total) by mouth once daily. METOPROLOL SUCCINATE (TOPROL-XL) 50 MG 24 HR TABLET Take 1 tablet (50 mg total) by mouth once daily. Previous Medications ALBUTEROL 90 MCG/ACTUATION INHALER Inhale 2 puffs into the lungs every 6 (six) hours as needed for Wheezing or Shortness of Breath. Rescue ASPIRIN (ECOTRIN) 81 MG EC TABLET Take 81 mg by mouth once daily. INHALATION SPACING DEVICE Use as directed for inhalation. METFORMIN (GLUCOPHAGE-XR) 500 MG 24 HR TABLET Take 1 tablet (500 mg total) by mouth before dinner. Modified Medications No medications on file Discontinued Medications SOTALOL (BETAPACE) 80 MG TABLET Take 1 tablet (80 mg total) by mouth once daily. documented in this encounter Plan of Treatment Scheduled Referrals Name Type Priority Associated Order Schedule Diagnoses Ambulatory Referral Outpatient Referral Routine Paroxysmal atr ial Ordered: to [facility] fibrillation 04/19/2018 ([facility]) A-fib documented as of this encounter Goals Goal Patient Goal Associated Recent Patient-Stated? Author Type Problems Progress Blood Pressure Blood 197/101 Yes Myochsner, < 130/80 Pressure (02/21/2020 System Messag e 10:15 AM CREAM RIPENER) Take at least Blood No Cutura, one BP reading Pressure Precious per week at various times of the day Maintain a low Diet No Cutura, sodium diet Precious Note: [place] [employer] (AHA) guideli francisco recommend less [...] Name Priority Date/Time Associated Diagnosis Comme nts EKG 12-LEAD Routine 04/19/2018 9:11 AM Paroxysmal atrial Res ults for this CREAM RIPENER fibrillation procedure are in the A-fib results section . documented in this encounter Results IN OFFICE EKG 12-LEAD (to [place]) (04/19/2018 9:11 AM CREAM RIPENER) Specimen Narrative Performed At Test Reason : I48.0,I48.91, ROGELIO GE MUSE Vent. Rate : 069 BPM ? Atrial Rate : 069 BPM ?? P-R Int : 150 ms ?QRS D ur : 084 ms ?QT Int : 410 ms ? P-R-T Axe s : 028 -05 046 degrees ?? QTc Int : 439 ms Normal sinus rhythm Possible Left atrial enlargement Borderline Abnormal ECG When compared with ECG of 26-MAR-2018 13 :04, Sinus rhythm has replaced Atrial fibrill ation Vent. rate has decreased BY 101 BPM Questionable change in The axis Confirmed by Cipriano JOSEPH, Fidel ([id number]) o n 04/20/2018 1:08:48 PM Referred By: AAAREFERR SELF ? Confirmed By:Fidel Cota MD Performing Organization Address City/State/ZIP Code Phon e Number ROGELIO GE MUSE ROGELIO GE MUSE N/A documented in this encounter Visit Diagnoses Diagnosis Paroxysmal atrial fibrillation - Primary Atrial fibrillation A-fib Atrial fibrillation Mixed hyperlipidemia Essential hypertension Morbid obesity Hyperglycemia Other abnormal glucose documented in this encounter
--- OUTSIDE RECORDS SUMMARY | 2020-04-15 13:31 | XMS_ITS | Encounter Summary ---
:1975 Author Organization [facility] and It s Subsidiaries and Affiliates Address [address] [place] [address] Care Team Providers Name Role Phone GENTRY Braswell Unavailable Unavailable MD Romario Primary Care Provider gina Moralez II, MD, F. Unavailable Maggy Agustin MD Unavailable Napoleon Loyola MA Unavailable Unavailable Encounter Details Date Type Department Care Team Description 01/11/2019 Travel Social History Tobacco Use Types Packs/Day [...] or relatives? How often do you attend holiness or 1 to 4 times per year 10/08 jewish services? 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
--- OUTSIDE RECORDS SUMMARY | 2020-04-15 13:32 | XMS_ITS | Encounter Summary ---
:1975 Author Organization [facility] and s Subsidiaries and Affiliates Address [address] [place] [address] Care Team Providers Name Role Phone No, Doctor Primary Care Provider Unavailable Reason for Visit Reason Comments Other Encounter Details Date Type Department Care Team Description 06/05/2014 Telephone [place] [facility] - OB/ AUTO CLAIM REPRESENTATIVE Stefanie Chi MD [address] [facility], [facility] [address] [place] [address] [address] [place] [address] Information Security Systems Instructor: Lydia Gallo [facility] Social History Tobacco Use Types Packs/Day Years Used Date Never Smoker Smokeless Tobacco: Never Used Alcohol Use Standard Drinks/Week Comments No 0 [...] this encounter Miscellaneous Notes Telephone Encounter - Altagracia Bess LPN - 06/05/2014 4:59 PM CDTSpoke with pt and results for embx were given. Pt verbalized understanding, no questions at this time Telephone Encounter - Altagracia Bess LPN - 06/05/2014 4:58 PM CDT----- Message from Amanda Lua sent at 06/05/2014 3:35 PM CDT ----- Contact: self Pt returning a missed call, pt can be reached @ [phone]. elephone Encounter - Altagracia Bess LPN - 06/05/2014 1:13 PM CDTAttempt to contact pt about normal embx No answer. Pt asked to give us a call back at [phone] signed by Altagracia Bess LPN at 06/05/2014 1:13 PM CDTTelephone Encounter - Altagracia Bess LPN - 06/05/2014 1:12 PM CDT----- Message from Amanda Lua sent at 06/05/2014 10:09 AM CDT ----- Contact: self Pt needing a call back regarding her biopsy, pt can be reached @[phone]. Pt is working at [employer]. documented in this encounter Plan of Treatment Not on filedocumented as of this encounter Goals Goal Patient Goal Associated Recent Patient-Stated? 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
--- OUTSIDE RECORDS SUMMARY | 2020-04-15 13:32 | XMS_ITS | Encounter Summary ---
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 Social History Tobacco Use Types Packs/Day [...] this encounter Miscellaneous Notes Telephone Encounter - Katie Anderson MA - 06/26/2014 11:19 AM CDTI left a message for the pt to call the office back at [phone]. elephone Encounter - Katie Anderson MA - 06/26/2014 11:18 AM CDT----- Message from Rosi Decker sent at 06/26/2014 10:55 AM CDT ----- Contact: self Pt is calling to speak to nurse regarding embx results. Call back [phone] [phone] signed by Katie Anderson MA at 06/26/2014 11:18 AM CDTdocumented in this encounter Plan of Treatment Not on filedocumented as of this encounter Goals Goal Patient Goal Associated Recent Patient-Stated? 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
--- OUTSIDE RECORDS SUMMARY | 2020-04-15 13:32 | XMS_ITS | Encounter Summary ---
:1975 Author Organization [facility] and s Subsidiaries and Affiliates Address [address] [place] [address] Care Team Providers Name Role Phone Unavailable Primary Care Provider Unavailable Encounter Details Date Type Department Care Team Description 08/26/2010 Orders Only [facility] Stefanie Chi, [address] [place] [address] [address] [phone] Social History Tobacco Use Types Packs/Day Years Used Date Never Assessed Alcohol Habits Answer Date Recorded How often [...] 1 to 4 times per year 10/08 druze services? Do you belong to any clubs [...] Pressure (02/21/2020 System Messag e 10:15 AM [employer]) Take at least Blood No Cutura, one BP reading Pressure Precious per week at various times of the day Maintain a low Diet No Cutura, sodium diet Precious Note: [employer] (AHA) guideli francisco recommend less than 2000mg of dietary salt per day. Reduce portion size Diet No Precious Hernandez DIET - Meal Planning Diet No Luzu Precious castaneda Note: Your goal is to incorporate meal plannisilver g in your daily routine. Reduce portions Diet No Katie, C hristina Meal plan Diet No Cutura, Marco A noah Exercise at least 150 minutes per week. Exercise No Precious Wilson Note: Your goal is to increase exercise routin e and start Spin Classes next week. documented as of this encounter Procedures Procedure Name Priority Date/Time Associated Comments Diagnosis CBC W/ AUTO Routine 08/26/2010 2:25 Results for this DIFFERENTIAL PM CDT procedure are i n the results section. TSH Routine 08/26/2010 2:25 Results for this PM CDT procedure are i n the results section. T4, FREE Routine 08/26/2010 2:25 Results for this PM CDT procedure are i n the results section. COMPREHENSIVE Routine 08/26/2010 2:25 Results fo r this METABOLIC PANEL PM CDT procedure ar e in the results section. documented in this encounter Results Comprehensive metabolic panel (08/26/2010 2:25 PM CDT) Glucose 87 70 - 110 [facility] mg/dl BUN 13 6 - 20 mg/dl [facility] Creatinine 0.9 0.5 - 1.4 [facility] mg/dl Calcium 9.3 8.7 - 10.5 [facility] mg/dl Sodium 138 136 - 145 [facility] mmol/L Potassium 3.6 3.5 - 5.1 [facility] mmol/L Chloride 105 95 - 110 [facility] mmol/L Total Protein 7.4 6.0 - 8.4 [facility] g/dL Albumin 3.5 3.5 - 5.2 [facility] g/dl Total Bilirubin 0.2 0.1 - 1.0 [facility] Comment: mg/dl For infants and newborns, interpretation of results sh ould be based on gestational age, weight and in agreement with clini stefania observations. . Premature recommended reference ranges: Up to 24 hours.............<8.0 mg/dl Up to 48 hours............<12.0 mg/dl 3-5 days..................<15.0 mg/dl 6-29 days.................<15.0 mg/dl AST 11 10 - 40 U/L [facility] Alkaline 57 55 - 135 U/L [facility] Phosphatase CO2 23 23.0 - 29.0 [facility] mmol/L ALT 8 (L) 10 - 44 U/L [facility] Anion Gap 15 10 - 20 [facility] mmol/L eGFR if non >60 >60 mL/min [facility] British eGFR if >60 >60 mL/min [facility] British Comment: Estimated glomerular filtration rate (eGFR) is normali zed to an average body surface area of 1.73 square meters. ??The calculation used to obtain the eGFR is the adjusted MDRD equation, which factors patient sex, age, race, and creatinine result. ??Since race is unknown in our information system, the eGFR values for -British and Qqi-Nangcvl-Lbvrxxaj patients are given for each c reatinine result. Specimen Performing Organization Address City/[facility]/ZIP [facility] [place] Phon e Number [facility] R[facility] N/A TSH (08/26/2010 2:25 PM CDT) Pathologist Sig nature TSH 2.20 0.4 - 4.0 uIU/ml [facility] Specimen Performing Organization Address [facility] [place] Phon e Number ROGELIO LIS ROG[facility] N/A T4, free (08/26/2010 2:25 PM CDT) Pathologist Sig nature Free T4 1.14 0.71 - 1.51 ng/dl [facility] Specimen Performing Organization Address [facility] [place] Phon e Number [facility]IO LIS ROGELIO [facility]IS N/A CBC auto differential (08/26/2010 2:25 PM CDT) Pathologist Sig nature WBC 10.41 4.8 - 10.8 K/uL [facility] RBC 4.22 4.00 - 5.40 M/uL [facility] Hemoglobin 10.7 (L) 12.0 - 16.0 gm/dl [facility] Hematocrit 34.8 (L) 37.0 - 48.5 % [facility] MCV 82.5 82 - 95 fL [facility] MCH 25.4 (L) 27 - 31 pg [facility] MCHC 30.7 (L) 32 - 36 % [facility] RDW 14.3 11.5 - 14.5 % [facility] Gran % 50.7 38 - 73 % [facility] Lymph % 40.7 21 - 44 % [facility] [place] % 6.8 0.0 - 7.4 % [facility] Eosinophil % 1.6 0.0 - 4.2 % [facility] Basophil % 0.2 0 - 1.9 % [facility] Gran # (ANC) 5.3 1.8 - 7.7 K/uL [facility] Lymph # 4.2 1 - 4.8 K/uL [facility] [place] # 0.7 0.0 - 0.8 K/uL [facility] Eos # 0.2 0 - 0.45 K/uL [facility] Baso # 0.0 0.0 - 0.2 K/uL [facility] Platelets 346 150 - 350 K/uL [facility] MPV 10.6 9.2 - 12.9 fL [facility] Specimen Performing Organization Address City/State/ZIP Code Phon e Number [facility] R[facility] N/A documented in this encounter Visit Diagnoses Not on filedocumented in this encounter
--- OUTSIDE RECORDS SUMMARY | 2020-04-15 13:32 | XMS_ITS | Encounter Summary ---
:1975 Author Organization [facility] and s Subsidiaries and Affiliates Address [facility] [place] [address] Care Team Providers Name Role Phone No, Doctor Primary Care Provider Unavailable Reason for Visit Reason Comments Shortness of Breath 42 year old female presents to ed cc of sob/ palpitations that began 0930 this morning janis ent states hx of a.fib Auth/Cert Status Reason Specialty Diagnoses / Referred By Referred To Procedures Contact Contact Emergency Medicine Diagnoses Atrial fibrillation, unspecified type [facility] Emergency Procedures PLACE IN OBSERVATION Bess Friedman MD Department [address] [place] [address] [place] Phone: [phone] Phone: Fax: Encounter Details Date Type Department Care Team Description [facility] [place], [place] [id number] Atrial fibrillation, unspecified type (P rimary Dx); 03/28/2018 Encounter [facility]Bess Mcarthur MD [address] [place] [address] Shortness of breath; [address] Atrial fi brillation with rapid ventricular response; Ave Paroxysmal atrial fibrillati on [place] [phone] Social History Tobacco Use Types Packs/Day [...] or relatives? How often do you attend jain or 1 to 4 times per year 10/08 church services? Do you belong to any clubs or No 10/30/2018 organizations such as jain groups, unions, fraternal or athletic groups, or [...] Sign Reading Time Taken Comments Blood Pressure 143/82 03/28/2018 7:19 AM [employer] Pulse 73 03/28/2018 8:00 AM [employer] Temperature 36.4 ??C (97.6 ??F) 03/28/2018 7:19 AM [employer] Respiratory Rate 18 03/28/2018 7:19 AM [employer] Oxygen Saturation 99% 03/28/2018 6:00 AM [employer] Inhaled Oxygen Concentration - - Weight 120.1 kg (264 lb 12.4 oz) 03/26/2018 5:49 PM [employer] Height 167.6 cm (5' 6) 03/26/2018 5:49 PM [employer] Body Mass Index 42.74 03/26/2018 5:49 PM [employer] documented in this encounter Discharge Summaries Bess Nicholson MD - 03/28/2018 10:[address] [facility] Medicine Discharge Summary Patient Name: Remedios Schofield Admission Date: 03/26/2018 Hospital Length of Stay: 2 days Discharge Date and Time: 03/28/2018 11:24 AM Attending Physician: Bess Nicholson* Discharging Provider: Bess Nicholson MD Primary Care Provider: Primary Doctor No HPI: SchofieldRemedios gómez is a 42 y/o F with PMH of Afib, hypertension, and bronchitis who presented to the Ed with few hours history of palpitations, chest pain, and shortness of breath. Symptoms started since 9:30 this am. Patient noted a history of Afib and and was cardioverted in 2014, placed on Sotalol but quit taking her medication for 3 years. She also took her self-off her antihypertensives. She denies fever, chills, nausea, vomiting or dizziness. Patient noted she has been okay until she started on vegetable fast and exercising in the past few days. Patient presently feels tire. On Cardizem drip withHR 120-150s She noted was tried Cardizem in the past with success and later had to be cardioverted. She also hadMetoprolol for an episode that resolved after a dose. * No surgery found * Hospital Course: Started on Cardizem drip. 03/27 weaned off cardizem drip. Will hold Sotalol this morning. stepdown to floor. 03/28 discharge today on Sotalol daily and Low dose metformin. Consults: * Atrial fibrillation with RVR Hx of fib and cardioversion in 2014 Non complaint with medication Continue cardizem drip.d/c'd Lopressor x once continue Sotalol daily Continue ASA Hyperglycemia Obesity HbA1c 6.0 Low dose metformin Continue modify life style change Follow up HbA1c in 3 months Morbid obesity PT/OT Counseling regarding life style changes Essential hypertension Non complaint with medication Hold Losartan 100 mg dialy ASA Continue with Sotalol Final Active Diagnoses: Diagnosis Date Noted POA ??? PRINCIPAL PROBLEM: Atrial fibrillation with RVR [I48.91] 03/26/2018 Yes ??? Hyperglycemia [R73.9] 03/28/2018 Yes ??? Morbid obesity [E66.01] 03/26/2018 Yes ??? Essential hypertension [I10] 11/27/2016 Yes Problems Resolved During this Admission: Diagnosis Date Noted Date Resolved POA ??? Leukocytosis [D72.829] 03/26/2018 03/28/2018 Yes Discharged Condition: stable Disposition: Home or Self Care Follow Up: Follow-up Information Primary Doctor No. Schedule an appointment as soon as possible for a visit in 2 weeks. Patient Instructions: Hemoglobin A1c Standing Status: Future Standing Exp. Date: 05/27/19 Diet Cardiac Diet diabetic Scheduling Instructions: Low carbs Activity as tolerated Significant Diagnostic Studies: } Pending Diagnostic Studies: None Medications: Reconciled Home Medications: Medication List START taking these medications metFORMIN 500 MG 24 hr tablet Commonly known as: GLUCOPHAGE-XR Take 1 tablet (500 mg total) by mouth before dinner. CHANGE how you take these medications sotalol 80 MG tablet Commonly known as: BETAPACE Take 1 tablet (80 mg total) by mouth once daily. What changed: ?? medication strength ?? how much to take ?? how to take this ?? when to take this ?? Another medication with the same name was removed. Continue taking this medication, and follow the directions you see here. CONTINUE taking these medications albuterol 90 mcg/actuation inhaler Commonly known as: PROVENTIL/VENTOLIN HFA Inhale 2 puffs into the lungs every 6 (six) hours as needed for Wheezing or Shortness of Breath. Rescue aspirin 81 MG EC tablet Commonly known as: ECOTRIN Take 81 mg by mouth once daily. inhalation spacing device Use as directed for inhalation. STOP taking these medications amoxicillin-clavulanate 875-125mg 875-125 mg per tablet Commonly known as: AUGMENTIN diazePAM 5 MG tablet Commonly known as: VALIUM KLOR-CON M10 10 MEQ tablet Generic drug: potassium chloride SA losartan 100 MG tablet Commonly known as: COZAAR magnesium 200 mg Tab MAGNESIUM CHLORIDE ORAL potassium chloride 10 MEQ Cpsr Commonly known as: MICRO-K potassium chloride 10 MEQ Tbsr Commonly known as: KLOR-CON Indwelling Lines/Drains at time of discharge: Lines/Drains/Airways None Time spent on the discharge of patient: 55 minutes Patient was seen and examined on the date of discharge and determined to be suitable for discharge. Bess Nicholson MD Department of Hospital Medicine [facility] documented in this encounter Discharge Instructions Mario Ackerman RN - 03/28/2018 AttachmentsThe following attachments cannot be sent through Care Everywhere. Metformin tablets (Sudanese)Atrial Fibrillation, Discharge Instructions for (Sudanese)documented in this encounter Medications at Time of Discharge Medication Sig Dispensed Refills Start Date End Date albuterol 90 Inhale 2 puffs into 1 Inhaler 0 04/29/2017 mcg/actuation the lungs every 6 inhalerIndications: (six) hours as needed Bronchitis, Wheezing for Wheezing or Shortness of Breath. Rescue aspirin (ECOTRIN) 81 MG Take 81 mg by mouth 0 01/11/2019 EC tablet once daily. inhalation spacing Use as directed for 1 Device 0 04/29/19 18 11/04/2018 deviceIndications: inhalation. Bronchitis, Wheezing metFORMIN Take 1 tablet (500 mg 90 tablet 3 03/28/2018 (GLUCOPHAGE-XR) 500 MG total) by mouth before 24 hr tablet dinner. metFORMIN Take 500 mg by mouth. 0 03/28/201807/2018 (GLUCOPHAGE-XR) 500 MG 24 hr tablet potassium chloride SA 0 01/10/2014 (KLOR-CON M10) 10 MEQ tablet sotalol (BETAPACE) 80 Take 1 tablet (80 mg 30 tablet 03/1004/19/2018 MG tablet total) by mouth once daily. documented as of this encounter Progress Notes Bess Nicholson MD - 03/28/2018 10:[address] [facility] Medicine Progress Note Patient Name: Remedios Schofield Patient Class: IP- Inpatient Admission Date: 03/26/2018 Length of Stay: 2 days Attending Physician: Bess Nicholson* Primary Care Provider: Primary Doctor No Subjective: Principal Problem:Atrial fibrillation HPI: Remedios Schofield is a 42 y/o F with PMH of Afib, hypertension, and bronchitis who presented to the Ed with few hours history of palpitations, chest pain, and shortness of breath. Symptoms started since 9:30 this am. Patient noted a history of Afib and and was cardioverted in 2014, placed on Sotalol but quit taking her medication for 3 years. She also took her self-off her antihypertensives. She denies fever, chills, nausea, vomiting or dizziness. Patient noted she has been okay until she started on vegetable fast and exercising in the past few days. Patient presently feels tire. On Cardizem drip withHR 120-150s She noted was tried Cardizem in the past with success and later had to be cardioverted. She also hadMetoprolol for an episode that resolved after a dose. Hospital Course: Started on Cardizem drip. 03/27 weaned off cardizem drip. Will hold Sotalol this morning. stepdown to floor. 03/28 discharge today on Sotalol daily and Low dose metformin. Interval History: Awake and alert. Sitting up in bed. Family by bedside. HR stable. For possible discharge today No new complaint. BG elevated at admission, HbA1c @ 6.o Review of Systems Constitutional: Negative for fatigue and fever. HENT: Negative for congestion. Respiratory: Negative for cough, chest tightness and shortness of breath. Cardiovascular: Negative for chest pain. Gastrointestinal: Negative for abdominal pain, blood in stool, diarrhea, nausea and vomiting. Genitourinary: Negative for dysuria. Musculoskeletal: Negative for arthralgias. Skin: Negative for rash. Neurological: Negative for weakness. Psychiatric/Behavioral: Negative for agitation. Objective: Vital Signs (Most Recent): Temp: 97.6 ??F (36.4 ??C) (03/28/18718) Pulse: 77 (03/28/18718) Resp: 18 (03/28/18718) BP: (!) 143/82 (03/28/18718) SpO2: 99 % (03/28/18 0600) Vital Signs (24h Range): Temp: [96.5 ??F (35.8 ??C)-97.8 ??F (36.6 ??C)] 97.6 ??F (36.4 ??C) Pulse: [62-84] 77 Resp: [16-41] 18 SpO2: [96 %-99 %] 99 % BP: (115-143)/(65-96) 143/82 Weight: 120.1 kg (264 lb 12.4 oz) Body mass index is 42.74 kg/m??. Intake/Output Summary (Last 24 hours) at 03/28/2018 0737 Last data filed at 03/27/2018 1800 Gross per 24 hour Intake 250 ml Output ??? Net 250 ml Physical Exam Constitutional: She is oriented to person, place, and time. She appears well- developed and well-nourished. HENT: Head: Normocephalic and atraumatic. Neck: Neck supple. Cardiovascular: Normal rate, regular rhythm and normal heart sounds. No murmur heard. Pulmonary/Chest: Breath sounds normal. She has no wheezes. She has no rales. Abdominal: Soft. Bowel sounds are normal. There is no tenderness. Musculoskeletal: She exhibits no tenderness. Lymphadenopathy: She has no cervical adenopathy. Neurological: She is alert and oriented to person, place, and time. Skin: Skin is warm. Capillary refill takes less than 2 seconds. No rash noted. Psychiatric: She has a normal mood and affect. Significant Labs: CBC: Recent Labs Lab 03/26/18 1318 03/27/18 0853 WBC 13.80* 7.91 HGB 12.7 13.1 HCT 40.9 42.4 PLT 349 329 CMP: Recent Labs Lab 03/26/18 1318 NA 134* K 3.5 CL 98 CO2 29 GLU 137* BUN 14 CREATININE 0.9 CALCIUM 9.3 PROT 8.0 ALBUMIN 4.0 BILITOT 0.5 ALKPHOS 61 AST 19 ALT 12 ANIONGAP 7* EGFRNONAA >60 Magnesium: Recent Labs Lab 03/26/18 1318 MG 2.0 Prealbumin: No results for input(s): PREALBUMIN in the last 48 hours. Troponin: Recent Labs Lab 03/26/18 1318 TROPONINI 0.007 Significant Imaging: I have reviewed all pertinent imaging results/findings within the past 24 hours. Assessment/Plan: * Atrial fibrillation with RVR Hx of fib and cardioversion in 2014 Non complaint with medication Continue cardizem drip.d/c'd Lopressor x once continue Sotalol daily Continue ASA Hyperglycemia Obesity HbA1c 6.0 Low dose metformin Continue modify life style change Follow up HbA1c in 3 months Leukocytosis monitor Morbid obesity PT/OT Counseling regarding life style changes Essential hypertension Non complaint with medication Hold Losartan 100 mg dialy ASA Continue with Sotalol VTE Risk Mitigation (From admission, onward) None Bess Nicholson MD Department of Hospital Medicine [facility] ess Nicholson MD - 03/27/2018 8:[address] [facility] Medicine Progress Note Patient Name: Remedios Schofield Patient Class: IP- Inpatient Admission Date: 03/26/2018 Length of Stay: 1 days Attending Physician: Bess Nicholson* Primary Care Provider: Primary Doctor No Subjective: Principal Problem:Atrial fibrillation HPI: Remedios Schofield is a 42 y/o F with PMH of Afib, hypertension, and bronchitis who presented to the Ed with few hours history of palpitations, chest pain, and shortness of breath. Symptoms started since 9:30 this am. Patient noted a history of Afib and and was cardioverted in 2014, placed on Sotalol but quit taking her medication for 3 years. She also took her self-off her antihypertensives. She denies fever, chills, nausea, vomiting or dizziness. Patient noted she has been okay until she started on vegetable fast and exercising in the past few days. Patient presently feels tire. On Cardizem drip withHR 120-150s She noted was tried Cardizem in the past with success and later had to be cardioverted. She also hadMetoprolol for an episode that resolved after a dose. Hospital Course: Started on Cardizem drip. 03/27 weaned off cardizem drip. Will hold Sotalol this morning. stepdown to floor. Interval History: Awake and alert. Sitting up in bed. Family by bedside. weaned off Cardizem. HR in the 60s. Will hold off sotalol this morning. Transfer to floor. Review of Systems Constitutional: Negative for fatigue and fever. HENT: Negative for congestion. Respiratory: Negative for cough, chest tightness and shortness of breath. Cardiovascular: Negative for chest pain. Gastrointestinal: Negative for abdominal pain, blood in stool, diarrhea, nausea and vomiting. Genitourinary: Negative for dysuria. Musculoskeletal: Negative for arthralgias. Skin: Negative for rash. Neurological: Negative for weakness. Psychiatric/Behavioral: Negative for agitation. Objective: Vital Signs (Most Recent): Temp: 97.4 ??F (36.3 ??C) (03/27/18 0400) Pulse: (!) 56 (03/27/18629) Resp: (!) 22 (03/27/18629) BP: 102/68 (03/27/18629) SpO2: 96 % (03/27/18629) Vital Signs (24h Range): Temp: [97.1 ??F (36.2 ??C)-98 ??F (36.7 ??C)] 97.4 ??F (36.3 ??C) Pulse: [56-190] 56 Resp: [12-120] 22 SpO2: [81 %-99 %] 96 % BP: (91-193)/(54-135) 102/68 Weight: 120.1 kg (264 lb 12.4 oz) Body mass index is 42.74 kg/m??. Intake/Output Summary (Last 24 hours) at 03/27/2018 0722 Last data filed at 03/27/2018 0600 Gross per 24 hour Intake 372.33 ml Output 700 ml Net -327.67 ml Physical Exam Constitutional: She is oriented to person, place, and time. She appears well- developed and well-nourished. HENT: Head: Normocephalic and atraumatic. Neck: Neck supple. Cardiovascular: Normal rate, regular rhythm and normal heart sounds. No murmur heard. Pulmonary/Chest: Breath sounds normal. She has no wheezes. She has no rales. Abdominal: Soft. Bowel sounds are normal. There is no tenderness. Musculoskeletal: She exhibits no tenderness. Lymphadenopathy: She has no cervical adenopathy. Neurological: She is alert and oriented to person, place, and time. Skin: Skin is warm. Capillary refill takes less than 2 seconds. No rash noted. Psychiatric: She has a normal mood and affect. Significant Labs: CBC: Recent Labs Lab 03/26/18 1318 WBC 13.80* HGB 12.7 HCT 40.9 PLT 349 CMP: Recent Labs Lab 03/26/18 1318 NA 134* K 3.5 CL 98 CO2 29 GLU 137* BUN 14 CREATININE 0.9 CALCIUM 9.3 PROT 8.0 ALBUMIN 4.0 BILITOT 0.5 ALKPHOS 61 AST 19 ALT 12 ANIONGAP 7* EGFRNONAA >60 Magnesium: Recent Labs Lab 03/26/18 1318 MG 2.0 Prealbumin: No results for input(s): PREALBUMIN in the last 48 hours. Troponin: Recent Labs Lab 03/26/18 1318 TROPONINI 0.007 Significant Imaging: I have reviewed all pertinent imaging results/findings within the past 24 hours. Assessment/Plan: * Atrial fibrillation with RVR Hx of fib and cardioversion in 2014 Non complaint with medication Continue cardizem drip Lopressor x once restart Sotalol and advance dose, Continue ASA Leukocytosis monitor Morbid obesity PT/OT Counseling regarding life style changes Essential hypertension Non complaint with medication Hold Losartan 100 mg dialy ASA VTE Risk Mitigation (From admission, onward) None Critical care time spent on the evaluation and treatment of severe organ dysfunction, review of pertinent labs and imaging studies, discussions with consulting providers and discussions with patient/family: 45 minutes. Bess Nicholson MD Department of Hospital Medicine [facility] documented in this encounter H&P Notes Bess Nicholson MD - 03/26/2018 6:[address] [facility] Medicine History & Physical Patient Name: Remedios Schofield Admission Date: 03/26/2018 Attending Physician: Bess Nicholson MD Primary Care Provider: Primary Doctor No Patient information was obtained from patient and ER records. Subjective: Principal Problem:<principal problem not specified> Chief Complaint: Chief Complaint Patient presents with ??? Shortness of Breath 42 year old female presents to ed cc of sob/ palpitations that began 0930 this morning patient states hx of a.fib HPI: Remedios Schofield is a 42 y/o F with PMH of Afib, hypertension, and bronchitis who presented to the Ed with few hours history of palpitations, chest pain, and shortness of breath. Symptoms started since 9:30 this am. Patient noted a history of Afib and and was cardioverted in 2014, placed on Sotalolbut quit taking her medication for 3 years. She also took her self-off her antihypertensives. She denies fever, chills, nausea, vomiting or dizziness. Patient noted she has been okay until she started on vegetable fast and exercising in the past few days. Patient presently feels tire. On Cardizem drip with HR 120-150s She noted was tried Cardizem in the past with success and later had to be cardioverted. She also hadMetoprolol for an episode that resolved after a dose. Past Medical History: Diagnosis Date ??? A-fib ??? Atrial fibrillation 1982 ??? Atrial fibrillation ??? Bronchitis ??? Hypertension Past Surgical History: Procedure Laterality Date ??? ABDOMINAL SURGERY Review of patient's allergies indicates: No Known Allergies No current facility-administered medications on file prior to encounter. Current Outpatient Medications on File Prior to Encounter Medication Sig ??? albuterol 90 mcg/actuation inhaler Inhale 2 puffs into the lungs every 6 (six) hours as needed for Wheezing or Shortness of Breath. Rescue ??? amoxicillin-clavulanate 875-125mg (AUGMENTIN) 875-125 mg per tablet Take 1 tablet by mouth 2 (two) times daily. ??? aspirin (ECOTRIN) 81 MG EC tablet Take 81 mg by mouth once daily. ??? diazePAM (VALIUM) 5 MG tablet Take 1 tablet (5 mg total) by mouth every 8 (eight) hours. ??? inhalation spacing device Use as directed for inhalation. ??? KLOR-CON M10 10 mEq tablet ??? losartan (COZAAR) 100 MG tablet Take 100 mg by mouth once daily. ??? magnesium 200 mg Tab Take 400 mg by mouth 2 (two) times daily. ??? MAGNESIUM CHLORIDE ORAL Take by mouth. ??? potassium chloride (KLOR-CON) 10 MEQ TbSR ??? potassium chloride (MICRO-K) 10 MEQ CpSR Take 20 mEq by mouth 2 (two) times daily. ??? sotalol (BETAPACE) 120 MG Tab ??? sotalol (BETAPACE) 160 MG Tab Take 80 mg by mouth 2 (two) times daily. Family History Problem Relation (Age of Onset) Cancer Mother Diabetes Father, Mother, Sister Eclampsia Father, Mother, Sister Tobacco Use ??? Smoking status: Never Smoker Substance and Sexual Activity ??? Alcohol use: No ??? Drug use: No ??? Sexual activity: Yes Partners: Male control/protection: None Review of Systems Constitutional: Negative for fatigue and fever. HENT: Negative for congestion. Respiratory: Positive for shortness of breath. Negative for cough and chest tightness. Cardiovascular: Positive for palpitations. Negative for chest pain. Gastrointestinal: Negative for abdominal pain, blood in stool, diarrhea, nausea and vomiting. Genitourinary: Negative for dysuria. Musculoskeletal: Negative for arthralgias. Skin: Negative for rash. Neurological: Negative for weakness. Psychiatric/Behavioral: Negative for agitation. Objective: Vital Signs (Most Recent): Temp: 97.8 ??F (36.6 ??C) (03/26/18 1254) Pulse: (!) 143 (03/26/18 1419) Resp: 20 (03/26/18 1419) BP: (!) 140/64 (03/26/18 1419) SpO2: 97 % (03/26/18 1419) Vital Signs (24h Range): Temp: [97.8 ??F (36.6 ??C)] 97.8 ??F (36.6 ??C) Pulse: [113-190] 143 Resp: [18-32] 20 SpO2: [85 %-99 %] 97 % BP: (139-193)/(64-135) 140/64 Weight: 119.3 kg (263 lb) Body mass index is 42.45 kg/m??. Physical Exam Constitutional: She is oriented to person, place, and time. She appears well- developed and well-nourished. HENT: Head: Normocephalic and atraumatic. Eyes: EOM are normal. Pupils are equal, round, and reactive to light. Neck: Neck supple. Cardiovascular: Normal heart sounds. An irregular rhythm present. Tachycardia present. Exam reveals no gallop and no friction rub. No murmur heard. Pulmonary/Chest: Breath sounds normal. She has no wheezes. She has no rales. Abdominal: Soft. Bowel sounds are normal. There is no tenderness. Musculoskeletal: She exhibits no tenderness. Lymphadenopathy: She has no cervical adenopathy. Neurological: She is alert and oriented to person, place, and time. Skin: Skin is warm. Capillary refill takes less than 2 seconds. No rash noted. Psychiatric: She has a normal mood and affect. CRANIAL NERVES CN III, IV, Pupils are equal, round, and reactive to light. Extraocular motions are normal. Significant Labs: ABGs: No results for input(s): PH, PCO2, HCO3, POCSATURATED, BE, TOTALHB, COHB, METHB, O2HB, [id number] the last 48 hours. Blood Culture: No results for input(s): LABBLOO in the last 48 hours. CBC: Recent Labs Lab 03/26/18 1318 WBC 13.80* HGB 12.7 HCT 40.9 PLT 349 CMP: Recent Labs Lab 03/26/18 1318 NA 134* K 3.5 CL 98 CO2 29 GLU 137* BUN 14 CREATININE 0.9 CALCIUM 9.3 PROT 8.0 ALBUMIN 4.0 BILITOT 0.5 ALKPHOS 61 AST 19 ALT 12 ANIONGAP 7* EGFRNONAA >60 Cardiac Markers: Recent Labs Lab 03/26/18 1330 BNP 20 Coagulation: No results for input(s): PT, INR, APTT in the last 48 hours. Lactic Acid: No results for input(s): LACTATE in the last 48 hours. Magnesium: No results for input(s): MG in the last 48 hours. Prealbumin: No results for input(s): PREALBUMIN in the last 48 hours. Troponin: Recent Labs Lab 03/26/18 1318 TROPONINI 0.007 TSH: No results for input(s): TSH in the last 4320 hours. Imaging Results None Significant Imaging: I have reviewed all pertinent imaging results/findings within the past 24 hours. Assessment/Plan: Leukocytosis monitor Morbid obesity PT/OT Counseling regarding life style changes Atrial fibrillation with RVR Hx of fib and cardioversion in 2014 Non complaint with medication Continue cardizem drip Lopressor x once restart Sotalol and advance dose, Continue ASA Essential hypertension Non complaint with medication Restart previous Losartan 100 mg dialy ASA VTE Risk Mitigation (From admission, onward) None Critical care time spent on the evaluation and treatment of severe organ dysfunction, review of pertinent labs and imaging studies, discussions with consulting providers and discussions with patient/family: 60 minutes. Bess Nicholson MD Department of Hospital Medicine [facility] documented in this encounter ED Notes Mickey Guerrero RN - 03/26/2018 1:45 PM CSTAssumed care of patient. Patient is AAOx4 sitting upright in ER bed 13. Cardiac monitoring in place. Heron Benavides NP - 03/26/2018 1:42 PM CST Encounter Date: 03/26/2018 History Chief Complaint Patient presents with ??? Shortness of Breath 42 year old female presents to ed cc of sob/ palpitations that began 0930 this morning patient states hx of a.fib Patient is a 42-year-old female with past medical history of Afib, hypertension, and bronchitis who presents to ED for evaluation of palpitations, chest pain, and shortness of breath since approximately 9:30 this am. Patient reports that she was cardioverted in 2014 for A-fib, placed on Sotalol but has not been taking been taking prescribed medication. Patient also reports that she used to be on hypertension medication but is no longer taking prescribed medication. Denies any alleviating or exacerbating factors. Denies fever, chills, neck pain/stiffness, leg swelling, nausea, vomiting, diarrhea,abdominal pain, or any other concerns. The history is provided by the patient. Review of patient's allergies indicates: No Known Allergies Past Medical History: Diagnosis Date ??? A-fib ??? Atrial fibrillation 1982 ??? Atrial fibrillation ??? Bronchitis ??? Hypertension Past Surgical History: Procedure Laterality Date ??? ABDOMINAL SURGERY Family History Problem Relation Age of Onset ??? Diabetes Father ??? Eclampsia Father ??? Eclampsia Mother ??? Diabetes Mother ??? Cancer Mother ??? Diabetes Sister ??? Eclampsia Sister ??? Breast cancer Neg Hx ??? Ovarian cancer Neg Hx Social History Tobacco Use ??? Smoking status: Never Smoker Substance Use Topics ??? Alcohol use: No ??? Drug use: No Review of Systems Constitutional: Negative for chills and fever. HENT: Negative for sore throat. Respiratory: Positive for shortness of breath. Cardiovascular: Positive for chest pain and palpitations. Negative for leg swelling. Gastrointestinal: Negative for abdominal pain, diarrhea, nausea and vomiting. Musculoskeletal: Negative for back pain, neck pain and neck stiffness. Skin: Negative for rash. Hematological: Does not bruise/bleed easily. All other systems reviewed and are negative. Physical Exam Initial Vitals [03/26/18 1254] BP Pulse Resp Temp SpO2 (!) 193/135 (!) 113 20 97.8 ??F (36.6 ??C) 99 % MAP -- Physical Exam Vitals reviewed. Constitutional: She appears well-developed and well-nourished. She is not diaphoretic. She is cooperative. Non-toxic appearance. She does not have a sickly appearance. No acute distress. HENT: Head: Atraumatic. Eyes: EOM are normal. Neck: Normal range of motion, full passive range of motion without pain and phonation normal. Neck supple. Cardiovascular: An irregularly irregular rhythm present. Tachycardia present. Pulses: Radial pulses are 2+ on the right side, and 2+ on the left side. Pulmonary/Chest: Effort normal and breath sounds normal. No respiratory distress. Abdominal: Soft. Normal appearance and bowel sounds are normal. There is no tenderness. Neurological: She is alert and oriented to person, place, and time. Skin: Skin is warm, dry and intact. Psychiatric: She has a normal mood and affect. ED Course Procedures Labs Reviewed CBC W/ AUTO DIFFERENTIAL - Abnormal; Notable for the following components: Result Value WBC 13.80 (*) MCH 25.5 (*) MCHC 31.1 (*) RDW 15.0 (*) Lymph # 5.7 (*) Ada # 1.4 (*) All other components within normal limits COMPREHENSIVE METABOLIC PANEL - Abnormal; Notable for the following components: Sodium 134 (*) Glucose 137 (*) Anion Gap 7 (*) All other components within normal limits TSH - Abnormal; Notable for the following components: TSH 4.793 (*) All other components within normal limits URINALYSIS, REFLEX TO URINE CULTURE - Abnormal; Notable for the following components: Specific [place], UA <=1.005 (*) Occult Blood UA Trace (*) All other components within normal limits Narrative: Preferred Collection Type->Urine, Clean Catch TROPONIN I B-TYPE NATRIURETIC PEPTIDE B-TYPE NATRIURETIC PEPTIDE T4, FREE MAGNESIUM POCT URINE Imaging Results None Medical Decision Making: History: Old Medical Records: I decided to obtain old medical records. Initial Assessment: Patient presents ED for evaluation of palpitations, chest pain, and shortness of breath since approximately 9:30 a.m. Appears well, nontoxic. Afebrile. Irregularly irregular heart rate. Clinical Tests: Lab Tests: Ordered and Reviewed Radiological Study: Reviewed and Ordered ED Management: Labs, EKG, CXR, IV diltiazem, diltiazem infusion 2:09 PM- Patient reassessed. HR 163. Other: I discussed test(s) with the performing physician. <> Summary of the Findings: Care of this patient discussed with Dr. Shelton who agrees with ED course I have discussed this case with another health care provider. <> Summary of the Discussion: 2:16 PM- [facility] Cam[facility] about patient's HPI and ED course. Dr. Campos will come evaluate patient and admit patient. [facility] Dr. Campos for admission. Upon re- evaluation, the patient's status has remained stable. At this time, I believe the patient should be admitted to the hospital for further evaluation and management of atrial fibrillation. [facility] the case was discussed. Additional recommendations at this time: none. The consulting physician agrees with plan and will admit under their service. The patient and family were updated with test results, overall impression, and further plan of care. All questions were answered. The patient verbalized understanding and agrees with current plan. Attending Attestation: Physician Attestation Statement for HOMEBOUND TEACHER/PA: I have conducted a face to face encounter with this patient in addition to the HOMEBOUND TEACHER/PA, due to [employer] Other HOMEBOUND TEACHER/PA Attestation Additions: History of Present Illness: ATTENDING NOTE: PHYSICIAN ATTESTATION STATEMENT: I have reviewed this case with my non-physician provider (PA/HOMEBOUND TEACHER). The treatment regimen and risk factors were reviewed by me. This is a 42 y.o. female presenting with SOB Physician Attestation for Scribe: Physician Attestation Statement for Scribe #1: I, , reviewed documentation, as scribed by Slava Manuel in my presence, and it is both accurate and complete. Clinical Impression: The primary encounter diagnosis was Atrial fibrillation, unspecified type. A diagnosis of Shortness of breath was also pertinent to this visit. Heron Garza NP 03/26/18 1524 [employer] Associated attestation - Rolo Shelton MD - 03/26/2018 4:02 PM CSTI have reviewed the notes, assessments, and/or procedures performed by Congregation Greg, I concur with her/his documentation of Remedios Winter Schofield. Attending Note: I have personally seen and examined this patient with the APC. As the supervising MD I agree with the above history and PE. I agree with the above treatment, course, plan, and disposition, with the following additions: Patient is a 42 y.o. year-old AAF with PMH chronic atrial fibrillation presenting to ED with palpitations and chest pain. Vitals exhibit tachycardia in ED. Physical exam remarkable for a-fib with RVR. Workup including cardiac work- up. Patient with likely atrial fibrillation with RVR. Plan to administer Cardizem and admit for rule-out ACS.Angelita Castillo RN - 03/26/2018 1:25 PM [employer] Pt is resting on stretcher with eyes open. No distress noted with heart rate 180 on site monitor,BP is stable, no shortness of breath noted, smiling, talking. Family at bedside. Awaiting Dr. Villa assess. Will continue to monitor. Angelita Blanchard RN - 03/26/2018 1:15 PM CSTAssumed care of this patient at this time. Pt is resting on stretcher with site monitor in place.Pt complains of chest pain at 4/10. Pt placed on O2 at 2L per NC. EKG taken to Dr. Shelton at this time and he is aware of pt and pt's heart rate. Family at bedside. SR up and CB in reach. documented in this encounter Miscellaneous Notes Nursing - Mario Harris RN - 03/28/2018 11:24 AM [employer] IV site removed and was intact. No active bleeding noted. Discharge instructions, rxs and educational printouts given to pt and discussed thoroughly. Patient verbalized clear understanding of all discussed. Patient d/c'd via w/c with escort service and family with all of patient's belongings. At present no distress noted. lan of Care - Marci Rivas RN - 03/28/2018 11:00 AM [employer] Discharge orders noted, no HH or HME ordered. Pt's nurse will go over medications/signs and symptoms prior to discharge 03/28/18 1100 Final Note Assessment Type Final Discharge Note Anticipated Discharge Disposition Home What phone number can be called within the next 1-3 days to see how you are doing after discharge? [phone] Hospital Follow Up Appt(s) scheduled? No (Offices closed for weekend. Patient to schedule own follow up appointment.) Right Care Referral Info Post Acute Recommendation No Care Marci Rivas manager employee benefits Navigator ssessment & Plan Note - Bess Nicholson MD - 03/28/2018 10:13 AM [employer] Associated Problem(s): Atrial fibrillation with RVR (Resolved 01/26/2019)Hx of fib and cardioversion in 2014 Non complaint with medication Continue cardizem drip.d/c'd Lopressor x once continue Sotalol daily Continue ASA [employer] Assessment & Plan Juve - Bess Nicholson MD - 03/28/2018 10:13 AM CSTAssociated Problem(s): Morbid obesityPT/OT Counseling regarding life style changes [employer] Assessment & Plan Juve - Bess Nicholson MD - 03/28/2018 10:13 AM CSTAssociated Problem(s): Essential hypertensionNon complaint with medication Hold Losartan 100 mg dialy ASA Continue with Sotalol ssessment & Plan Juve - Bess Nicholson MD - 03/28/2018 10:13 AM CSTAssociated Problem(s): Hyperglycemia (Deleted) Obesity HbA1c 6.0 Low dose metformin Continue modify life style change Follow up HbA1c in 3 months [employer] Assessment & Plan Note - Bess Nicholson MD - 03/28/2018 10:05 AM CSTAssociated Problem(s): Hyperglycemia (Deleted)Obesity HbA1c 6.0 Low dose metformin Continue modify life style change Follow up HbA1c in 3 months [employer] Assessment & Plan Note - Bess Nicholson MD - 03/28/2018 9:58 AM CSTAssociated Problem(s): Atrial fibrillation with RVR (Resolved 01/26/2019)Hx of fib and cardioversion in 2014 Non complaint with medication Continue cardizem drip.d/c'd Lopressor x once continue Sotalol daily Continue ASA [employer] Assessment & Plan Note - Bess Nicholson MD - 03/28/2018 9:58 AM CSTAssociated Problem(s): Essential hypertensionNon complaint with medication Hold Losartan 100 mg dialy ASA Continue with Sotalol ubjective & Objective - Bess Nicholson MD - 03/28/2018 7:37 AM CST Interval History: Awake and alert. Sitting up in bed. Family by bedside. HR stable. For possible discharge today No new complaint. BG elevated at admission, HbA1c @ 6.o Review of Systems Constitutional: Negative for fatigue and fever. HENT: Negative for congestion. Respiratory: Negative for cough, chest tightness and shortness of breath. Cardiovascular: Negative for chest pain. Gastrointestinal: Negative for abdominal pain, blood in stool, diarrhea, nausea and vomiting. Genitourinary: Negative for dysuria. Musculoskeletal: Negative for arthralgias. Skin: Negative for rash. Neurological: Negative for weakness. Psychiatric/Behavioral: Negative for agitation. Objective: Vital Signs (Most Recent): Temp: 97.6 ??F (36.4 ??C) (03/28/18718) Pulse: 77 (03/28/18718) Resp: 18 (03/28/18718) BP: (!) 143/82 (03/28/18718) SpO2: 99 % (03/28/18 0600) Vital Signs (24h Range): Temp: [96.5 ??F (35.8 ??C)-97.8 ??F (36.6 ??C)] 97.6 ??F (36.4 ??C) Pulse: [62-84] 77 Resp: [16-41] 18 SpO2: [96 %-99 %] 99 % BP: (115-143)/(65-96) 143/82 Weight: 120.1 kg (264 lb 12.4 oz) Body mass index is 42.74 kg/m??. Intake/Output Summary (Last 24 hours) at 03/28/2018 0737 Last data filed at 03/27/2018 1800 Gross per 24 hour Intake 250 ml Output ??? Net 250 ml Physical Exam Constitutional: She is oriented to person, place, and time. She appears well- developed and well-nourished. HENT: Head: Normocephalic and atraumatic. Neck: Neck supple. Cardiovascular: Normal rate, regular rhythm and normal heart sounds. No murmur heard. Pulmonary/Chest: Breath sounds normal. She has no wheezes. She has no rales. Abdominal: Soft. Bowel sounds are normal. There is no tenderness. Musculoskeletal: She exhibits no tenderness. Lymphadenopathy: She has no cervical adenopathy. Neurological: She is alert and oriented to person, place, and time. Skin: Skin is warm. Capillary refill takes less than 2 seconds. No rash noted. Psychiatric: She has a normal mood and affect. Significant Labs: CBC: Recent Labs Lab 03/26/18 1318 03/27/18 0853 WBC 13.80* 7.91 HGB 12.7 13.1 HCT 40.9 42.4 PLT 349 329 CMP: Recent Labs Lab 03/26/18 1318 NA 134* K 3.5 CL 98 CO2 29 GLU 137* BUN 14 CREATININE 0.9 CALCIUM 9.3 PROT 8.0 ALBUMIN 4.0 BILITOT 0.5 ALKPHOS 61 AST 19 ALT 12 ANIONGAP 7* EGFRNONAA >60 Magnesium: Recent Labs Lab 03/26/18 1318 MG 2.0 Prealbumin: No results for input(s): PREALBUMIN in the last 48 hours. Troponin: Recent Labs Lab 03/26/18 1318 TROPONINI 0.007 Significant Imaging: I have reviewed all pertinent imaging results/findings within the past 24 hours. lan of Madi Hopkins LPN - 03/28/2018 1:25 AM CSTProblem: Adult Inpatient Plan of Care Goal: Plan of Care Review Outcome: Ongoing (interventions implemented as appropriate) Plan of care reviewed with patient, understanding verbalized. Pt remains SR on tele. No complaints overnight. instructed to call for any assistance,understanig verbalized. Bed alarm on, call light in reach, fall precautions in place. Will continue to monitor. lan of Becky Hand CRT - 03/27/2018 8:38 PM CSTProblem: Adult Inpatient Plan of Care Goal: Plan of Care Review Outcome: Ongoing (interventions implemented as appropriate) Pt on RA with documented sats. Will continue to monitor. lan of Mario Munguia RN - 03/27/2018 8:01 PM CSTProblem: Adult Inpatient Plan of Care Goal: Plan of Care Review Outcome: Ongoing (interventions implemented as appropriate) I have reviewed the plan of care with the pt. The pt remains in NSR on tele. Denies any SOB, CP, or palpatations. VSS. Will continue to monitor. Safety measures are in place. The pt verbalizes full understanding of their plan of care. lan of Akua Fenton - 03/27/2018 10:46 AM CST 03/27/18 1020 Discharge Assessment Assessment Type Discharge Planning Assessment Confirmed/corrected address and phone number on facesheet? Yes Assessment information obtained from? Patient Prior to hospitilization cognitive status: Alert/Oriented Prior to hospitalization functional status: Independent Current cognitive status: Alert/Oriented Current Functional Status: Independent Facility Arrived From: home Lives With spouse;child(ekta), dependent;other relative(s) (nephew) Able to Return to Prior Arrangements yes Is patient able to care for self after discharge? Yes Who are your caregiver(s) and their phone number(s)? Gera Schofield()[phone] Readmission Within the Last 30 Days no [...] Coumadin Clinic? No Discharge Plan A Home with family Discharge Plan B Home DME Needed Upon Discharge none Patient/Family in Agreement with Plan yes ??? Shortness of Breath ? 42 year old female presents to ed cc of sob/ palpitations that began 0930 this morning patientstates hx of a.fib ?? HPI: Remedios Schofield is a 42 y/o F with PMH of Afib, hypertension, and bronchitis who presented to the Ed with few hours history of palpitations, chest pain, and shortness of breath. Symptoms started since 9:30 this am. Patient noted a history of Afib and and was cardioverted in 2014, placed on Sotalolbut quit taking her medication for 3 years. She also took her self-off her antihypertensives. She denies fever, chills, nausea, vomiting or dizziness. Patient noted she has been okay until she started on vegetable fast and exercising in the past few days. Patient presently feels tire. On Cardizem drip with HR 120-150s She noted was tried Cardizem in the past with success and later had to be cardioverted. She also hadMetoprolol for an episode that resolved after a dose The Sw met with the pt in ICU to complete her assessment. The pt's independent with her adl's and doesn't use any dme. The pt still drives and has transportation home at d/c. The pt's PCP is Dr. Decker([facility]). The Sw left her contact info on the white board in the pt's room. lan of Tyra Cash RN - 03/27/2018 10:30 AM CSTTransferred to 465 via wheelchair with transport and me, monitor in place, chart, belongings with her, Cashmiere at bedside, pt remains in nsr rate 65 lan of Tyra Cash RN - 03/27/2018 10:15 AM CSTReport to Jessica RN [employer] Plan of Tyra Cash RN - 03/27/2018 8:[address]ST[address] Innocent here, informed that drip wean to off, off since 809, but pulse noted 59-62, asked aboutsotalol,ordered bid, stated to hold am dose ssessment & Plan Note - Bess Agarwal MD - 03/27/2018 8:31 AM CSTAssociated Problem(s): Essential hypertensionNon complaint with medication Hold Losartan 100 mg dialy ASA lan of Sandro Land CRT - 03/27/2018 8:27 AM CSTProblem: Adult Inpatient Plan of Care Goal: Plan of Care Review Outcome: Ongoing (interventions implemented as appropriate) Pt. On room air in no apparent distress. Will cont. To monitor. lan of Tyra Cash RN - 03/27/2018 8:10 AM CSTRemains sr cardizem drip discontinued lan of Care - Tyra De Jesus RN - 03/27/2018 7:30 AM CSTSinus rhythm , rate 62, noted 59-60, up 70 with movement, no co of chest pain, sob, cardizem drip decreased to 5 mgm, in sr since 0330 , will monitor, pt refuses, scd's, explained that she needs dvt prevention, states she moves around too much, she will walk, and be active ubjective & Objective - Innocent-Bess Nicole MD - 03/27/2018 7:22 AM CST Interval History: Awake and alert. Sitting up in bed. Family by bedside. weaned off Cardizem. HR in the 60s. Will hold off sotalol this morning. Transfer to floor. Review of Systems Constitutional: Negative for fatigue and fever. HENT: Negative for congestion. Respiratory: Negative for cough, chest tightness and shortness of breath. Cardiovascular: Negative for chest pain. Gastrointestinal: Negative for abdominal pain, blood in stool, diarrhea, nausea and vomiting. Genitourinary: Negative for dysuria. Musculoskeletal: Negative for arthralgias. Skin: Negative for rash. Neurological: Negative for weakness. Psychiatric/Behavioral: Negative for agitation. Objective: Vital Signs (Most Recent): Temp: 97.4 ??F (36.3 ??C) (03/27/18 0400) Pulse: (!) 56 (03/27/18629) Resp: (!) 22 (03/27/18629) BP: 102/68 (03/27/18629) SpO2: 96 % (03/27/18629) Vital Signs (24h Range): Temp: [97.1 ??F (36.2 ??C)-98 ??F (36.7 ??C)] 97.4 ??F (36.3 ??C) Pulse: [56-190] 56 Resp: [12-120] 22 SpO2: [81 %-99 %] 96 % BP: (91-193)/(54-135) 102/68 Weight: 120.1 kg (264 lb 12.4 oz) Body mass index is 42.74 kg/m??. Intake/Output Summary (Last 24 hours) at 03/27/2018 0722 Last data filed at 03/27/2018 0600 Gross per 24 hour Intake 372.33 ml Output 700 ml Net -327.67 ml Physical Exam Constitutional: She is oriented to person, place, and time. She appears well- developed and well-nourished. HENT: Head: Normocephalic and atraumatic. Neck: Neck supple. Cardiovascular: Normal rate, regular rhythm and normal heart sounds. No murmur heard. Pulmonary/Chest: Breath sounds normal. She has no wheezes. She has no rales. Abdominal: Soft. Bowel sounds are normal. There is no tenderness. Musculoskeletal: She exhibits no tenderness. Lymphadenopathy: She has no cervical adenopathy. Neurological: She is alert and oriented to person, place, and time. Skin: Skin is warm. Capillary refill takes less than 2 seconds. No rash noted. Psychiatric: She has a normal mood and affect. Significant Labs: CBC: Recent Labs Lab 03/26/18 1318 WBC 13.80* HGB 12.7 HCT 40.9 PLT 349 CMP: Recent Labs Lab 03/26/18 1318 NA 134* K 3.5 CL 98 CO2 29 GLU 137* BUN 14 CREATININE 0.9 CALCIUM 9.3 PROT 8.0 ALBUMIN 4.0 BILITOT 0.5 ALKPHOS 61 AST 19 ALT 12 ANIONGAP 7* EGFRNONAA >60 Magnesium: Recent Labs Lab 03/26/18 1318 MG 2.0 Prealbumin: No results for input(s): PREALBUMIN in the last 48 hours. Troponin: Recent Labs Lab 03/26/18 1318 TROPONINI 0.007 Significant Imaging: I have reviewed all pertinent imaging results/findings within the past 24 hours. ursing - Letty He RN - 03/26/2018 11:47 PM [employer] (5230) Bedside report received from off going nurse, patient care assumed. (1957) HOB @ a 40 degreeangle in lowest position with wheels locked, side rails up times 2; continuous cardiac monitoring inprogress with alarms set, Atrial Fib on the monitor, HR 102-130; on Ra, O2 Sat 98-100%; (R) AC 20G PIV has dressing CDI, infusing via Pump is 125mg/125ml Cardizem @ 10mg/hour, no S/S of infection or infiltration observed @ the insertion site; AAOX4 with clear speech, appropriate conversation, calm upbeat mood, denies pain @ this time, see initial shift physical assessment. (2100) Scheduled med administered along with 500mg Tylenol for complaint of headache rated 5/10. (220) PRN medication noted to be moderately effective, headache currently rated 2/10, will continue to monitor. (0021) Resting quietly with eyes closed, easily arouses with verbal stimuli, no changes in initial physical assessment, remains in A Fib with a controlled rate. (0145) Bedside commode provided upon request, voided 700ml clear yellow urine. (0340) Sinus Bradycardia on the monitor, HR 53, asymptomatic. (0400) No changes in previous physical assessment, patient remains in a SR/SB with a HR of 53-59, AAOX4 denies SOB and dizziness. (0505) Message left at [phone] regarding patient's conversion from Atrial Fib to SR/SB. (0543) Spoke with via telephone ensuring that original telephone message was received, no new orders received. (0630) Awake and alert, denies pain or discomfort, no signs of distress noted, patient eager to be discharged. (0710) Bedside report given to oncoming nurse, time allowed for questions. lan of Care - Alia Lombardo FINANCIAL ADMINISTRATION OFFICER - 03/26/2018 7:09 PM CSTProblem: Adult Inpatient Plan of Care Goal: Plan of Care Review Outcome: Ongoing (interventions implemented as appropriate) Pt on RA with documented sats. Will continue to monitor. [employer] Hospital Course - Handyocent-Bess Nicole MD - 03/26/2018 2:51 PM CSTStarted on Cardizem drip. 03/27 weaned off cardizem drip. Will hold Sotalol this morning. stepdown to floor. 03/28 discharge today on Sotalol daily and Low dose metformin. ssessment & Plan Note - Bess Nicholson MD - 03/26/2018 2:48 PM [employer] Associated Problem(s): Essential hypertensionNon complaint with medication Restart previous Losartan 100 mg dialy ASA ssessment & Plan Note - Bess Nicholson MD - 03/26/2018 2:47 PM CSTAssociated Problem(s): Leukocytosis (Deleted)monitor [employer] Assessment & Plan Note - Bess Nicholson MD - 03/26/2018 2:47 PM CSTAssociated Problem(s): Morbid obesityPT/OT Counseling regarding life style changes [employer] Assessment & Plan Note - Bess Nicholson MD - 03/26/2018 2:46 PM CSTAssociated Problem(s): Atrial fibrillation with RVR (Resolved 01/26/2019)Hx of fib and cardioversion in 2014 Non complaint with medication Continue cardizem drip Lopressor x once restart Sotalol and advance dose, Continue ASA [employer] Subjective & Objective - Bess Nicholson MD - 03/26/2018 2:43 PM CST Past Medical History: Diagnosis Date ??? A-fib ??? Atrial fibrillation 1982 ??? Atrial fibrillation ??? Bronchitis ??? Hypertension Past Surgical History: Procedure Laterality Date ??? ABDOMINAL SURGERY Review of patient's allergies indicates: No Known Allergies No current facility-administered medications on file prior to encounter. Current Outpatient Medications on File Prior to Encounter Medication Sig ??? albuterol 90 mcg/actuation inhaler Inhale 2 puffs into the lungs every 6 (six) hours as needed for Wheezing or Shortness of Breath. Rescue ??? amoxicillin-clavulanate 875-125mg (AUGMENTIN) 875-125 mg per tablet Take 1 tablet by mouth 2 (two) times daily. ??? aspirin (ECOTRIN) 81 MG EC tablet Take 81 mg by mouth once daily. ??? diazePAM (VALIUM) 5 MG tablet Take 1 tablet (5 mg total) by mouth every 8 (eight) hours. ??? inhalation spacing device Use as directed for inhalation. ??? KLOR-CON M10 10 mEq tablet ??? losartan (COZAAR) 100 MG tablet Take 100 mg by mouth once daily. ??? magnesium 200 mg Tab Take 400 mg by mouth 2 (two) times daily. ??? MAGNESIUM CHLORIDE ORAL Take by mouth. ??? potassium chloride (KLOR-CON) 10 MEQ TbSR ??? potassium chloride (MICRO-K) 10 MEQ CpSR Take 20 mEq by mouth 2 (two) times daily. ??? sotalol (BETAPACE) 120 MG Tab ??? sotalol (BETAPACE) 160 MG Tab Take 80 mg by mouth 2 (two) times daily. Family History Problem Relation (Age of Onset) Cancer Mother Diabetes Father, Mother, Sister Eclampsia Father, Mother, Sister Tobacco Use ??? Smoking status: Never Smoker Substance and Sexual Activity ??? Alcohol use: No ??? Drug use: No ??? Sexual activity: Yes Partners: Male control/protection: None Review of Systems Constitutional: Negative for fatigue and fever. HENT: Negative for congestion. Respiratory: Positive for shortness of breath. Negative for cough and chest tightness. Cardiovascular: Positive for palpitations. Negative for chest pain. Gastrointestinal: Negative for abdominal pain, blood in stool, diarrhea, nausea and vomiting. Genitourinary: Negative for dysuria. Musculoskeletal: Negative for arthralgias. Skin: Negative for rash. Neurological: Negative for weakness. Psychiatric/Behavioral: Negative for agitation. Objective: Vital Signs (Most Recent): Temp: 97.8 ??F (36.6 ??C) (03/26/18 1254) Pulse: (!) 143 (03/26/18 1419) Resp: 20 (03/26/18 1419) BP: (!) 140/64 (03/26/18 1419) SpO2: 97 % (03/26/18 1419) Vital Signs (24h Range): Temp: [97.8 ??F (36.6 ??C)] 97.8 ??F (36.6 ??C) Pulse: [113-190] 143 Resp: [18-32] 20 SpO2: [85 %-99 %] 97 % BP: (139-193)/(64-135) 140/64 Weight: 119.3 kg (263 lb) Body mass index is 42.45 kg/m??. Physical Exam Constitutional: She is oriented to person, place, and time. She appears well- developed and well-nourished. HENT: Head: Normocephalic and atraumatic. Eyes: EOM are normal. Pupils are equal, round, and reactive to light. Neck: Neck supple. Cardiovascular: Normal heart sounds. An irregular rhythm present. Tachycardia present. Exam reveals no gallop and no friction rub. No murmur heard. Pulmonary/Chest: Breath sounds normal. She has no wheezes. She has no rales. Abdominal: Soft. Bowel sounds are normal. There is no tenderness. Musculoskeletal: She exhibits no tenderness. Lymphadenopathy: She has no cervical adenopathy. Neurological: She is alert and oriented to person, place, and time. Skin: Skin is warm. Capillary refill takes less than 2 seconds. No rash noted. Psychiatric: She has a normal mood and affect. CRANIAL NERVES CN III, IV, Pupils are equal, round, and reactive to light. Extraocular motions are normal. Significant Labs: ABGs: No results for input(s): PH, PCO2, HCO3, POCSATURATED, BE, TOTALHB, COHB, METHB, O2HB, [id number] the last 48 hours. Blood Culture: No results for input(s): LABBLOO in the last 48 hours. CBC: Recent Labs Lab 03/26/18 1318 WBC 13.80* HGB 12.7 HCT 40.9 PLT 349 CMP: Recent Labs Lab 03/26/18 1318 NA 134* K 3.5 CL 98 CO2 29 GLU 137* BUN 14 CREATININE 0.9 CALCIUM 9.3 PROT 8.0 ALBUMIN 4.0 BILITOT 0.5 ALKPHOS 61 AST 19 ALT 12 ANIONGAP 7* EGFRNONAA >60 Cardiac Markers: Recent Labs Lab 03/26/18 1330 BNP 20 Coagulation: No results for input(s): PT, INR, APTT in the last 48 hours. Lactic Acid: No results for input(s): LACTATE in the last 48 hours. Magnesium: No results for input(s): MG in the last 48 hours. Prealbumin: No results for input(s): PREALBUMIN in the last 48 hours. Troponin: Recent Labs Lab 03/26/18 1318 TROPONINI 0.007 TSH: No results for input(s): TSH in the last 4320 hours. Imaging Results None Significant Imaging: I have reviewed all pertinent imaging results/findings within the past 24 hours. PI - Bess Nicholson MD - 03/26/2018 2:43 PM Remedios Phillips is a 42 y/o F with PMH of Afib, hypertension, and bronchitis who presented to the Ed with few hours history of palpitations, chest pain, and shortness of breath. Symptoms started since 9:30 this am. Patient noted a history of Afib and and was cardioverted in 2014, placed on Sotalol but quit taking her medication for 3 years. She also took her self-off her antihypertensives. She denies fever, chills, nausea, vomiting or dizziness. Patient noted she has been okay until she started on vegetable fast and exercising in the past few days. Patient presently feels tire. On Cardizem drip withHR 120-150s She noted was tried Cardizem in the past with success and later had to be cardioverted. She also hadMetoprolol for an episode that resolved after a dose. [employer] documented in this encounter Plan of Treatment Not on filedocumented as of this encounter Goals Goal Patient Goal Associated Recent Patient-Stated? Author Type Problems Progress Blood Pressure Blood 197/101 Yes Myochsner, < 130/80 Pressure (02/21/2020 System Messag e 10:15 AM [employer]) Take at least Blood No Cutura, one BP reading Pressure Precious per week at various times of the day Maintain a low Diet No Cutura, sodium diet Precious Note: [place] [employer] (AHA) guideli francisco recommend less [...] Date/Time Associated Comments Diagnosis CBC W/ AUTO STAT 03/27/2018 8:53 Results for this DIFFERENTIAL AM [employer] procedure are i n the results section. HEMOGLOBIN A1C STAT 03/27/2018 8:53 Results f or this AM [employer] procedure are i n the results section. XR CHEST PA AND STAT 03/26/2018 3:13 Results for this LATERAL PM [employer] procedure are i n the results section. POCT URINE STAT 03/26/2018 2:40 Res ults for this PM [employer] procedure are i n the results section. URINALYSIS, REFLEX TO STAT 03/26/2018 2:35 Re sults for this URINE CULTURE PM [employer] procedure are in the results section. B-TYPE NATRIURETIC STAT 03/26/2018 1:30 Resul ts for this PEPTIDE PM [employer] procedure are i n the results section. CBC W/ AUTO STAT 03/26/2018 1:18 Results for this DIFFERENTIAL PM [employer] procedure are i n the results section. TROPONIN I STAT 03/26/2018 1:18 Results for this PM [employer] procedure are i n the results section. TSH STAT 03/26/2018 1:18 Results for this PM [employer] procedure are i n the results section. T4, FREE STAT 03/26/2018 1:18 Results for this PM [employer] procedure are i n the results section. MAGNESIUM STAT 03/26/2018 1:18 Results for this PM [employer] procedure are i n the results section. COMPREHENSIVE STAT 03/26/2018 1:18 Results fo r this METABOLIC PANEL PM [employer] procedure ar e in the results section. EKG 12-LEAD STAT 03/26/2018 1:04 Results for this PM [employer] procedure are i n the results section. CARDIAC MONITORING 03/26/2018 12:00 STRIPS AM [employer] EKG 12-LEAD 03/26/2018 12:00 AM [employer] documented in this encounter Results Hemoglobin A1c (03/27/2018 8:53 AM [employer]) Hemoglobin A1C 6.0 (H) 4.0 - 5.6 % [facility] Comment: [facility] ADA Screening Guidelines: 5.7-6.4% ??Consistent with prediabetes >or=6.5% ??Consistent with diabetes High levels of hemoglobin interfere with the HbA 1C assay. Heterozygous hemoglobin variants (HbS, HgC, etc )do not significantly interfere with this assay. However, presence of multiple variants may affect accu racy. Estimated Avg 126 68 - 131 [facility] Glucose mg/dL [facility] Specimen Blood - Blood Performing Organization Address City/State/ZIP Code Phon e Number - [address] [facility] [place] [address] [place] CBC auto differential (03/27/2018 8:53 AM [employer]) Pathologist Sig nature WBC 7.91 3.90 - 12.70 [facility] K/uL [facility] RBC 5.11 4.00 - 5.40 [facility] M/uL [facility] Hemoglobin 13.1 12.0 - 16.0 [facility] g/dL [facility] Hematocrit 42.4 37.0 - 48.5 % [facility] MCV 83 82 - 98 fL [facility] MCH 25.6 (L) 27.0 - 31.0 pg [facility] MCHC 30.9 (L) 32.0 - 36.0 [facility] g/dL [facility] RDW 14.9 (H) 11.5 - 14.5 % [facility] Platelets 329 150 - 350 K/uL [facility] MPV 10.7 9.2 - 12.9 fL [facility] Gran # (ANC) 2.7 1.8 - 7.7 K/uL [facility] Lymph # 4.0 1.0 - 4.8 K/uL [facility] Ada # 0.9 0.3 - 1.0 K/uL [facility] Eos # 0.2 0.0 - 0.5 K/uL [facility] Baso # 0.04 0.00 - 0.20 [facility] K/uL [place] [facility] [place] Gran % 34.4 (L) 38.0 - 73.0 % [facility] Lymph % 51.1 (H) 18.0 - 48.0 % [facility] Ada % 11.0 4.0 - 15.0 % [facility] Eosinophil % 2.7 0.0 - 8.0 % [facility] Basophil % 0.5 0.0 - 1.9 % [facility] Differential Method Automated [facility] Specimen Blood - Blood Performing Organization Address City/State/ZIP Code Phon e Number - [address] [facility] [place] [address] [place] X-Ray Chest PA And Lateral (03/26/2018 3:13 PM [employer]) Specimen Impressions Performed At [facility] No radiographic acute intrathoracic proc ess seen. Electronically signed by: Maggy Jerome Date: 03/26/2018 Time: 15:18 Narrative Performed At EXAMINATION: [facility] XR CHEST PA AND LATERAL TECHNIQUE: PA and lateral views of the chest were p erformed. COMPARISON: Chest radiograph 02/04/2017 FINDINGS: Monitoring leads and pacer pads overlie the chest. ??N o detrimental change. ??Bilateral nipple metallic pier cing jewelry noted. Cardiomediastinal silhouette is midline and within nor mal limits. ??Pulmonary vasculature and hilar regions are within n ormal limits. ??The lungs are symmetrically well expanded and clear. ??No pleural effusion or pneumothorax. ??Osseous structures appear stable without acute process seen. Procedure Note Interface, Rad Results In - 03/26/2018 3:20 PM [employer] EXAMINATION: XR CHEST PA AND LATERAL TECHNIQUE: PA and lateral views of the chest were p erformed. COMPARISON: Chest radiograph 02/04/2017 FINDINGS: Monitoring leads and pacer pads overlie the chest. No detrimental change. Bilateral nipple metallic piercing jewelry noted. Cardiomediastinal silhouette is midline and within normal limits. Pulmonary vasculature and hilar regions are within normal limits. The lungs are symmetrically well expanded and clear. No pleural effusion or pneumothorax. Osseous structures appear stable without acute process seen. IMPRESSION: No radiographic acute intrathoracic proc ess seen. Electronically signed by:Luis Sheikh MD Date:03/26/2018 Time:15:18 Performing Organization Address City/State/ZIP Code Phon e Number MMODEL FLUENCY MMODEL FLUENCY n/a POCT urine (03/26/2018 2:40 PM [employer]) Pathologist Sig nature POC Preg Test, Ur Negative Negative [employer] Acceptable Yes Specimen Urinalysis, Reflex to Urine Culture Urine, Clean Catch (03/26/2018 2:35 PM [employer]) Specimen UA Urine, Clean Catch [facility] Color, UA Yellow Yellow, Straw, [facility] Lesley [facility] Appearance, UA Clear Clear [facility] pH, UA 6.0 5.0 - 8.0 [facility] Specific [place], <=1.005 (A) 1.005 - 1.030 [facility] Protein, UA Negative Negative [facility] Comment: [facility] Recommend a 24 hour urine protein or a urine protein/creatinine ratio if globulin induced proteinur ia is clinically suspected. Glucose, UA Negative Negative [facility] Ketones, UA Negative Negative [facility] Bilirubin (UA) Negative Negative [facility] Occult Blood UA Trace (A) Negative [facility] Nitrite, UA Negative Negative [facility] Urobilinogen, UA Negative <2.0 EU/dL [facility] Leukocytes, UA Negative Negative [facility] Specimen Urine Narrative Performed At Preferred Collection Type->Urine, Clean Catch [facility] Performing Organization Address City/[facility]/ZIP Code Phon e Number - [address] [place] [address] [place] Brain natriuretic peptide (03/26/2018 1:30 PM [employer]) Pathologist [facility] BNP 20Comment: Values of 0 - 99 pg/mL [facility] less than 100 pg/ml [facility] are consistent with non-CHF populations. Specimen Performing Organization Address City/[facility]/ZIP Code Phon e Number [facility] [address] [facility] [place] [address] [place] Magnesium (03/26/2018 1:18 PM [employer]) Pathologist Sig [facility] Magnesium 2.0 1.6 - 2.6 mg/dL [facility] Specimen Performing Organization Address [facility]/ZIP [facility] Phon e Number [facility] [address] [place] [address] [place] T4, free (03/26/2018 1:18 PM [employer]) Pathologist [facility] Free T4 1.16 0.71 - 1.51 ng/dL [facility] Specimen Performing Organization Address [facility]/ZIP Code Phon e Number [facility] [address] [facility] [place] [address] [place] TSH (03/26/2018 1:18 PM [employer]) Pathologist [facility] TSH 4.793 (H) 0.400 - 4.000 uIU/mL [facility] Specimen Blood - Blood Performing Organization Address City/[facility]/ZIP Code Phon e Number [facility] [address] [place] [address] [place] Troponin I (03/26/2018 1:18 PM [employer]) Pathologist [facility] Troponin I 0.007 0.000 - 0.026 [facility] Comment: ng/mL [facility] The reference interval for Troponin I represents the 9 9th percentile cutoff for our facility and is consistent with 3rd generation assay performance. Specimen Blood - Blood Performing Organization Address City/[facility]/ZIP [facility] Phon e Number [facility] [address] [facility] [place] [address] [place] Comprehensive metabolic panel (03/26/2018 1:18 PM [employer]) Pathologist [facility] Sodium 134 (L) 136 - 145 [facility] mmol/L [facility] Potassium 3.5 3.5 - 5.1 [facility] mmol/L [facility] Chloride 98 95 - 110 [facility] mmol/L [facility] CO2 29 23 - 29 [facility] mmol/L [facility] Glucose 137 (H) 70 - 110 [facility] mg/dL [facility] BUN 14 6 - 20 mg/dL [facility] Creatinine 0.9 0.5 - 1.4 [facility] mg/dL [facility] Calcium 9.3 8.7 - 10.5 [facility] mg/dL [facility] Total Protein 8.0 6.0 - 8.4 [facility] g/dL [facility] Albumin 4.0 3.5 - 5.2 [facility] g/dL [facility] Total Bilirubin 0.5 0.1 - 1.0 [facility] Comment: mg/dL [facility] For infants and newborns, interpretation of results sh ould be based on gestational age, weight and in agreement with clini stefania observations. Premature Infant recommended reference ranges: Up to 24 hours.............<8.0 mg/dL Up to 48 hours............<12.0 mg/dL 3-5 days..................<15.0 mg/dL 6-29 days.................<15.0 mg/dL Alkaline 61 55 - 135 U/L [facility] Phosphatase [facility] AST 19 10 - 40 U/L [facility] ALT 12 10 - 44 U/L [facility] Anion Gap 7 (L) 8 - 16 [facility] mmol/L [facility] eGFR if >60 >60 [facility] [place] mL/min/1.73 [facility] m^2 eGFR if non >60 >60 [facility] Comment: mL/min/1.73 [facility] Calculation used to obtain the estimated glomerular fi ltration m^2 rate (eGFR) is the CKD-EPI equation. Specimen Blood - Blood Performing Organization Address City/State/ZIP Code Phon e Number - [address], [place] [address] [place] CBC auto differential (03/26/2018 1:18 PM [employer]) Pathologist Sig nature WBC 13.80 (H) 3.90 - 12.70 [facility] K/uL [facility] RBC 4.98 4.00 - 5.40 [facility] M/[facility] Hemoglobin 12.7 12.0 - 16.0 [facility] g/dL [facility] Hematocrit 40.9 37.0 - 48.5 % [facility] MCV 82 82 - 98 fL [facility] MCH 25.5 (L) 27.0 - 31.0 pg [facility] MCHC 31.1 (L) 32.0 - 36.0 [facility] g/dL [facility] RDW 15.0 (H) 11.5 - 14.5 % [facility] Platelets 349 150 - 350 K/uL [facility] MPV 10.3 9.2 - 12.9 fL [facility] Gran # (ANC) 6.5 1.8 - 7.7 K/uL [facility] Lymph # 5.7 (H) 1.0 - 4.8 K/uL [facility] Ada # 1.4 (H) 0.3 - 1.0 K/uL [facility] Eos # 0.2 0.0 - 0.5 K/uL [facility] Baso # 0.03 0.00 - 0.20 [facility] K/[facility] Gran % 47.0 38.0 - 73.0 % [facility] Lymph % 41.3 18.0 - 48.0 % [facility] Ada % 10.2 4.0 - 15.0 % [facility] Eosinophil % 1.2 0.0 - 8.0 % [facility] Basophil % 0.2 0.0 - 1.9 % [facility] Differential Method Automated [facility] Specimen Blood - Blood Performing Organization Address City/State/ZIP Code Phon e Number - [address] [place], [place] [address] [place] EKG 12-lead (03/26/2018 1:04 PM [employer]) Specimen Narrative Performed At Test Reason : R06.02, ROGELIO GE MUSE Blood Pressure : / mmHG Vent. Rate : 170 BPM ? Atrial Rate : 136 BPM ?? P-R Int : 000 ms ?QRS D ur : 080 ms ?QT Int : 284 ms ? P-R-T Axe s : 000 069 038 degrees ?? QTc Int : 477 ms Atrial fibrillation with rapid ventricul ar response Abnormal ECG When compared with ECG of 04-FEB-2017 11 :22, Atrial fibrillation has replaced Sinus r hythm Vent. rate has increased BY ??94 BPM Confirmed by Eunice Leiva MD ([id number]) on 03/26/2018 5:45:07 PM Referred By: AAAREFERR SELF ? Confirmed By:Eunice Leiva MD Performing Organization Address City/State/ZIP Code Phon e Number ROGELIO GE MUSE ROGELIO [place] MUSE N/A EKG 12-LEAD (03/26/2018 12:00 AM [employer]) Narrative Performed At This result has an attachment that is no t available. documented in this encounter Visit Diagnoses Diagnosis Shortness of breath Atrial fibrillation, unspecified type Atrial fibrillation with rapid ventricul ar response Paroxysmal atrial fibrillation Atrial fibrillation Morbid obesity Leukocytosis Leukocytosis, unspecified Essential hypertension Hyperglycemia Other abnormal glucose documented in this encounter Admitting Diagnoses Diagnosis Atrial fibrillation documented in this encounter Administered Medications Inactive Administered Medications - up to 3 most recent administrations Medication Order MAR Action Action Date Dose Rate Site acetaminophen tablet 500 mg Given 03/27/2018 10:50 AM [employer] 500 mg 500 mg, Oral, Every 4 hours PRN, mild pain 1-3/10 pain scale, Headaches, Starting on Thu03/26/18 at 2144 Given 03/26/2018 9:01 PM [employer] 500 mg aspirin EC tablet 81 mg Given 03/28/2018 10:00 AM [employer] 81 mg 81 mg, Oral, Daily, First dose on 03/27/18 at 0900 Given 03/27/2018 9:27 AM [employer] 81 mg diltiaZEM 125 mg in dextrose Rate/Dose Change 03/27/2018 7:30 AM 5 mg/hr 5 mL/hr 5% 125 mL infusion [employer] (non-titrating) 10 mg/hr (10 mL/hr), Intravenous, at 10 mL/hr, Continuous, Starting on Thu03/26/18 at 1515 Verify Only 03/27/2018 6:00 AM [employer] 10 mg/hr 10 mL/hr Verify Only 03/27/2018 5:00 AM [employer] 10 mg/hr 10 mL/hr diltiaZEM injection 20 mg Given 03/26/2018 1:46 PM [employer] 20 mg 20 mg, Intravenous, ED 1 Time, On Thu03/26/18 at 1345, For 1 dose metFORMIN 24 hr tablet 500 mg 500 mg, Oral, with dinner, First dose on 03/28/18 a t 1645 metoprolol injection 5 mg Given 03/26/2018 6:05 PM [employer] 5 mg 5 mg, Intravenous, Once, On Thu03/26/18 at 1800, For 1 dose sotalol tablet 80 mg Given 03/26/2018 9:01 PM [employer] 80 mg 80 mg, Oral, 2 times daily, First dose on Thu03/26/18 at 2100 sotalol tablet 80 mg 80 mg, Oral, Daily, First dose (after last modificatio n) on 03/28/18 at 2100 documented in this encounter Active and Recently Administered Medications Times are shown in [employer]. Scheduled Medication Order 03/26/2018 03/27/2018 03/28/2018 aspirin EC tablet 81 mg 0927 (Given - Provider: Tyra De Jesus RN) 1000 (Given - Provider: Mario Harris RN) 81 mg, Oral, Daily, First dose on 03/27/18 at 0900 diltiaZEM injection 20 mg (COMPLETED) 1346 (Given - Pr ovider: Angelita Castillo RN) 20 mg, Intravenous, ED 1 Time, Thu03/26/18 at 1345, For 1 dose metFORMIN 24 hr tablet 500 mg 500 mg, Oral, with dinner, First dose on 03/28/18 at 1645 metoprolol injection 5 mg (COMPLETED) 1805 (Given - Pr ovider: Siomara Hallman RN) 5 mg, Intravenous, Once, Thu03/26/18 at 1800, For 1 dose sotalol tablet 80 mg (CANCELED) 210 (Given - Provider: Letty charles RN) 80 mg, Oral, 2 times daily, First dose on Thu03/26/18 at 2100 sotalol tablet 80 mg 80 mg, Oral, Daily, First dose on Thu03/28/18 at 2100 Continuous Medication Order 03/26/2018 03/27/2018 03/28/2018 diltiaZEM 125 mg in dextrose 5% 125 mL infusion (non-t itrating) (CANCELED) 1446 (New Bag - Provider: Mickey Guerrero RN)2100 (Verify Only - Provider: Letty He RN)2200 (Verify Only - Provider: Letty He RN)2300 (Verify Only - Provider: Letty He RN) 0000 (Verify Only - Provider: Letty He RN)0100 (Verify Only - Provider: Letty He RN)0240 (New Bag - Provider: Letty He RN)0400 (Verify Only - Provider: Letty He RN)0500 (Verify Only - Provider: Letty He RN) 10 mg/hr (10 mL/hr), Intravenous, at 10 mL/hr, Continuous, Starting Thu03/26/18 at 1515 0600 (Verify Only - Provider : Letty He RN)0730 (Rate/Dose Change - Provider: Tyra De Jesus, DIANDRA)0810 (Stopped - Provider: Tyra De Jesus RN) PRN Medication Order 03/26/2018 03/27/2018 03/28/2018 acetaminophen tablet 500 mg 2100 (Given - Provider: Letty charles, DIANDRA) 1050 (Given - Provider: Mario Harris RN) 500 mg, Oral, Every 4 hours PRN, mild pa in 1-3/10 pain scale, Headaches, Starting Thu03/26/18 at 2144 albuterol inhaler 2 puff 2 puff, Inhalation, Every 6 hours PRN, W heezing, Shortness of Breath, Starting Thu03/26/18 at 1746 documented in this encounter
--- OUTSIDE RECORDS SUMMARY | 2020-04-15 13:32 | XMS_ITS | Encounter Summary ---
:1975 Author Organization [facility] and It s Subsidiaries and Affiliates Address [facility] [place] [address] Care Team Providers Name Role Phone No, Doctor Primary Care Provider Unavailable Reason for Visit Reason Comments Cough cough x 2 weeks. no relief w ith antibiotics and steroid shots. Encounter Details Date Type Department Care Team Description 08/04/2016 Emergency [facility] Medical Tony Castillo, [facility] unspecified organism [address] (Primary Dx) [place] [address] EMERGENCY DEPT [phone] [place] [address] [phone] Social History Tobacco Use Types Packs/Day Years [...] Sign Reading Time Taken Comments Blood Pressure 129/71 08/04/2016 4:55 AM CDT Pulse 89 08/04/2016 5:45 AM CDT Temperature 36.6 ??C (97.8 ??F) 08/04/2016 2:01 AM CDT Respiratory Rate 18 08/04/2016 5:45 AM CDT Oxygen Saturation 98% 08/04/2016 5:45 AM CDT Inhaled Oxygen Concentration - - Weight 117.5 kg (259 lb) 08/04/2016 2:01 AM CDT Height 167.6 cm (5' 6) 08/04/2016 2:01 AM CDT Body Mass Index 41.8 08/04/2016 2:01 AM CDT documented in this encounter Discharge Instructions AttachmentsThe following attachments cannot be sent through Care Everywhere. BRONCHITIS, ANTIOBIOTIC TREATMENT (ADULT) (TURKISH)ACUTE BRONCHITIS, WHAT IS (TURKISH)documented in this encounter Medications at Time of Discharge Medication Sig Dispensed Refills Start Date End Date albuterol 90 Inhale 1-2 puffs 1 Inhaler 0 08/04/20162017 mcg/actuation inhaler into the lungs every 6 (six) hours as needed for Wheezing. Rescue azithromycin (Z-VALERIA) 250 Take 2 tablets by 6 tablet 0 07/0808/09/2016 MG tablet mouth on day 1; Take 1 tablet by mouth on days 2-5 predniSONE (DELTASONE) 50 Take 1 tablet (50 mg 5 tablet 0 08/04/2016 08/09/2016 MG Tab total) by mouth once daily. aspirin (ECOTRIN) 81 MG Take 81 mg by mouth 0 01/11/2019 EC tablet once daily. KLOR-CON M10 10 mEq 0 01/10/201403/28 tablet losartan (COZAAR) 100 MG Take 100 mg by mouth 0 03/28/2018 tablet once daily. magnesium 200 mg Tab Take 400 mg by mouth 0 03/28/2018 2 (two) times daily. MAGNESIUM CHLORIDE ORAL Take by mouth. 0 03/28/2018 potassium chloride 0 12/08/20122018 (KLOR-CON) 10 MEQ TbSR potassium chloride Take 20 mEq by mouth 0 03/28/2018 (MICRO-K) 10 MEQ CpSR 2 (two) times daily. potassium chloride SA 0 01/10/2014 (KLOR-CON M10) 10 MEQ tablet sotalol (BETAPACE) 120 MG 0 12/08/2012 03/28/2018 Tab sotalol (BETAPACE) 160 MG Take 80 mg by mouth 0 03/28/2018 Tab 2 (two) times daily. documented as of this encounter ED Notes Tony Castillo MD - 08/04/2016 5:37 AM CDT Encounter Date: 08/04/2016 History Chief Complaint Patient presents with ??? Cough cough x 2 weeks. no relief with antibiotics and steroid shots. Review of patient's allergies indicates: No Known Allergies Pt presents with congestion and cough x 2 wks. She was given augmentin by her PCP and bronchodilators without improvement. No fevers or chest pain. No orthopnea. Past Medical History: Diagnosis Date ??? A-fib ??? Atrial fibrillation 1982 ??? Atrial fibrillation ??? Hypertension Past Surgical History: Procedure Laterality Date ??? ABDOMINAL SURGERY Family History Problem Relation Age of Onset ??? Diabetes Father ??? Eclampsia Father ??? Eclampsia Mother ??? Diabetes Mother ??? Cancer Mother ??? Diabetes Sister ??? Eclampsia Sister ??? Breast cancer Neg Hx ??? Ovarian cancer Neg Hx Social History Substance Use Topics ??? Smoking status: Never Smoker ??? Smokeless tobacco: Not on file ??? Alcohol use No Review of Systems Constitutional: Negative. Negative for fatigue and fever. HENT: Positive for congestion. Negative for sore throat. Respiratory: Positive for cough, shortness of breath and wheezing. Negative for chest tightness. Cardiovascular: Negative for chest pain, palpitations and leg swelling. Gastrointestinal: Negative for abdominal distention, abdominal pain, diarrhea and nausea. Musculoskeletal: Negative for back pain. All other systems reviewed and are negative. Physical Exam Initial Vitals [08/04/16 0201] BP Pulse Resp Temp SpO2 (!) 168/109 79 19 97.8 ??F (36.6 ??C) 97 % Physical Exam Nursing note and vitals reviewed. Constitutional: Vital signs are normal. She appears well-developed and well- nourished. She is not diaphoretic. No distress. HENT: Head: Normocephalic and atraumatic. Eyes: Conjunctivae and EOM are normal. Pupils are equal, round, and reactive to light. Neck: Normal range of motion. Neck supple. Cardiovascular: Normal rate, regular rhythm and normal heart sounds. Pulmonary/Chest: No respiratory distress. She has wheezes. She has no rhonchi. She has no rales. Abdominal: Soft. She exhibits no distension. There is no tenderness. There is no rebound and no guarding. Musculoskeletal: Normal range of motion. She exhibits no edema or tenderness. Neurological: She is alert and oriented to person, place, and time. Skin: Skin is warm and dry. Psychiatric: She has a normal mood and affect. ED Course Procedures Labs Reviewed CBC W/ AUTO DIFFERENTIAL - Abnormal; Notable for the following: Result Value MCV 81 (*) MCH 26.1 (*) Willacy # 1.6 (*) All other components within normal limits COMPREHENSIVE METABOLIC PANEL - Abnormal; Notable for the following: Glucose 130 (*) All other components within normal limits TROPONIN I B-TYPE NATRIURETIC PEPTIDE POCT URINE Imaging Results X-Ray Chest PA And Lateral (Final result) Result time 08/04/16 04:50:31 Final result by Vin Zimmerman MD (08/04/16 04:50:31) Impression: No radiographic evidence of acute intra-thoracic process. Electronically signed by: VIN ZIMMERMAN Date: 08/04/16 Time: 04:50 Narrative: Comparison: 12/22/2010 Technique: PA and lateral radiographs of the chest. Findings: Cardiac monitoring leads overlie the chest. The cardiomediastinal silhouette is within normal limits. The visualized airway is unremarkable. The lungs appear symmetrically aerated without definite focal alveolar consolidation. No large pleural effusion or pneumothorax is appreciated. The vis ualized osseous structures appear intact. Labs Reviewed CBC W/ AUTO DIFFERENTIAL - Abnormal; Notable for the following: Result Value MCV 81 (*) MCH 26.1 (*) Willacy # 1.6 (*) All other components within normal limits COMPREHENSIVE METABOLIC PANEL - Abnormal; Notable for the following: Glucose 130 (*) All other components within normal limits TROPONIN I B-TYPE NATRIURETIC PEPTIDE POCT URINE ED Course Clinical Impression: The encounter diagnosis was Acute bronchitis, unspecified organism. javascript:; Tony Castillo MD 08/04/16 0647 Urszula Braxton - 08/04/2016 3:57 AM CDTPatient placed on continuous cafeteria monitor, automatic blood pressure cuff and continuous pulse oximeter. Arline Kuhn RN - 08/04/2016 3:14 AM CDTAssumed pt care owe, Annette Morataya RN - 08/04/2016 2:10 AM CDTPt. C/o cough and congestion for 2 weeks. She is taking her second course of antibiotics and inhalers that she was prescribed and she hasn't had any relief from her cough. documented in this encounter Plan of Treatment Not on filedocumented as of this encounter Goals Goal Patient Goal Associated Recent Patient-Stated? 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 POCT URINE STAT 08/04/2016 4:37 Res ults for this AM CDT procedure are i n the results section. CBC W/ AUTO STAT 08/04/2016 4:03 Results for this DIFFERENTIAL AM CDT procedure are i n the results section. TROPONIN I STAT 08/04/2016 4:03 Results for this AM CDT procedure are i n the results section. B-TYPE NATRIURETIC STAT 08/04/2016 4:03 Resul ts for this PEPTIDE AM CDT procedure are i n the results section. COMPREHENSIVE STAT 08/04/2016 4:03 Results fo r this METABOLIC PANEL AM CDT procedure ar e in the results section. EKG 12-LEAD STAT 08/04/2016 3:53 Results for this AM CDT procedure are i n the results section. PULSE OXIMETRY STAT 08/04/2016 3:47 AM CDT EKG 12-LEAD 08/04/2016 12:00 AM CDT documented in this encounter Results X-Ray Chest PA And Lateral (08/04/2016 4:46 AM CDT) Specimen Impressions Performed At [facility] No radiographic evidence of acute intra- thoracic process. Electronically signed by: VIN ZIMMERMAN Date: 08/04/16 Time: 04:50 Narrative Performed At Comparison: 12/22/2010 [facility] Technique: PA and lateral radiographs of the chest. Findings: Cardiac monitoring leads overlie the chest. The cardiomediastinal silhouette is within normal limits. The visualized airway is unremarkable. ??The lungs appear symmetrically aerated without definite focal alveolar consolidation. No large pleural effusion or pneumothor ax is appreciated. The visualized osseous structures appear intact. Procedure Note Interface, Rad Results In - 08/04/2016 4:50 AM CDT Comparison: 12/22/2010 Technique: PA and lateral radiographs of the chest. Findings: Cardiac monitoring leads overl ie the chest. The cardiomediastinal silhouette is within normal limits. The visualized airway is unremarkable. The lungs appear symmetrically aerated without definite focal alveolar consolidation. N o large pleural effusion or pneumothorax is appreciated. The visualized osseous structures appear intact. IMPRESSION: No radiographic evidence of acute intra- thoracic process. Electronically signed by:VIN ZIMMERMAN Date: 08/04/16 Time:04:50 Performing Organization Address City/State/ZIP Code Phon e Number [employer] n/a POCT urine (08/04/2016 4:37 AM CDT) Pathologist Sig nature POC Preg Test, Ur Negative Negative Precipitator Acceptable Yes Specimen B-Type natriuretic peptide (BNP) (08/04/2016 4:03 AM CDT) Pathologist Sig nature BNP <10Comment: Values of 0 - 99 pg/mL [facility] less than 100 pg/ml [facility] are consistent with non-CHF populations. Specimen Blood - Blood Performing Organization Address City/State/ZIP Code Phon e Number [facility] - [address] [facility] [place] [address] [place] Troponin I #1 (08/04/2016 4:03 AM CDT) Troponin I <0.006 0.000 - 0.026 [facility] Comment: ng/mL [facility] The reference interval for Troponin I represents the 9 9th percentile cutoff for our facility and is consistent with 3rd generation assay performance. Specimen Blood - Blood Performing Organization Address City/State/ZIP Code Phon e Number [facility] - [address] [facility] [place] [address] [place] Comprehensive metabolic panel (08/04/2016 4:03 AM CDT) Pathologist [facility] Sodium 136 136 - 145 [facility] mmol/L [facility] Potassium 4.5 3.5 - 5.1 [facility] mmol/L [facility] Chloride 101 95 - 110 [facility] mmol/L [facility] CO2 25 23 - 29 [facility] mmol/L [facility] Glucose 130 (H) 70 - 110 [facility] mg/dL [facility] BUN 15 6 - 20 mg/dL [place] Creatinine 0.8 0.5 - 1.4 [facility] mg/dL [facility] Calcium 9.5 8.7 - 10.5 [facility] mg/dL [facility] Total Protein 7.7 6.0 - 8.4 [facility] g/dL [facility] Albumin 3.8 3.5 - 5.2 [facility] g/dL [facility] Total Bilirubin 0.2 0.1 - 1.0 [facility] Comment: mg/dL [facility] For infants and newborns, interpretation of results sh ould be based on gestational age, weight and in agreement with clini stefania observations. Premature Infant recommended reference ranges: Up to 24 hours.............<8.0 mg/dL Up to 48 hours............<12.0 mg/dL 3-5 days..................<15.0 mg/dL 6-29 days.................<15.0 mg/dL Alkaline 72 55 - 135 U/L [facility] Phosphatase [facility] AST 14 10 - 40 U/L [place] ALT 18 10 - 44 U/L [place] Anion Gap 10 8 - 16 [facility] mmol/L [facility] eGFR if >60 >60 [facility] Malaysian mL/min/1.73 [facility] m^2 eGFR if non >60 >60 [facility] Comment: mL/min/1.73 [facility] Calculation used to obtain the estimated glomerular fi ltration m^2 rate (eGFR) is the CKD-EPI equation. Since race is unk nown in our information system, the eGFR values for -Malaysian and Fes-Czuvfsh-Qmzryoag patients are given for each creatinine result. Specimen Blood - Blood Performing Organization Address City/State/ZIP Code Phon e Number [facility] - [address] [place] [place] [address] [place] CBC auto differential (08/04/2016 4:03 AM CDT) Pathologist Sig nature WBC 12.57 3.90 - 12.70 [facility] K/uL [facility] RBC 5.01 4.00 - 5.40 [facility] M/uL [facility] Hemoglobin 13.1 12.0 - 16.0 [facility] g/dL [facility] Hematocrit 40.8 37.0 - 48.5 % [place] MCV 81 (L) 82 - 98 [facility] MCH 26.1 (L) 27.0 - 31.0 pg [place] MCHC 32.1 32.0 - 36.0 % [place] RDW 14.1 11.5 - 14.5 % [place] Platelets 349 150 - 350 K/uL [place] MPV 10.4 9.2 - 12.9 f[address] [place] Gran # (ANC) 6.5 1.8 - 7.7 K/uL [place] Lymph # 4.3 1.0 - 4.8 K/uL [place] Willacy # 1.6 (H) 0.3 - 1.0 K/uL [place] Eos # 0.1 0.0 - 0.5 K/uL [facility] - [place] Baso # 0.03 0.00 - 0.20 [facility] K/uL [facility] [place] Gran % 51.3 38.0 - 73.0 % [place] Lymph % 34.0 18.0 - 48.0 % [place] Willacy % 12.9 4.0 - 15.0 % [place] Eosinophil % 0.6 0.0 - 8.0 % [facility] - [place] Basophil % 0.2 0.0 - 1.9 % [place] Differential Method Automated [place] Specimen Blood - Blood Performing Organization Address City/[facility] Phon e Number [facility] - [address] [facility] [place] [address] [place] EKG 12-lead (08/04/2016 3:53 AM CDT) Specimen Narrative Performed At Test Reason : r06.02 ROGELIO [employer] Ascending MUSE Blood Pressure : / mmHG Vent. Rate : 073 BPM ? Atrial Rate : 073 BPM ?? P-R Int : 130 ms ?QRS D ur : 074 ms ?QT Int : 386 ms ? P-R-T Axe s : 043 022 038 degrees ?? QTc Int : 425 ms Normal sinus rhythm Nonspecific T wave abnormality Abnormal ECG When compared with ECG of 22-DEC-2010 00 :40, No significant change was found Confirmed by Misael Aguillon MD ([id number]) on 08/04/2016 2:04:37 PM Referred By: AAAREFERR SELF ? Confirmed By:Misael Aguillon MD Performing Organization Address City/[facility]/ZIP Code Phon e Number ROGELIO GE MUSE ROGELIO GE MUSE N/A EKG 12-LEAD (08/04/2016 12:00 AM CDT) Narrative Performed At This result has an attachment that is no t available. documented in this encounter Visit Diagnoses Diagnosis Acute bronchitis, unspecified organism - Primary documented in this encounter Administered Medications Inactive Administered Medications - up to 3 most recent administrations Medication Order MAR Action Action Date Dose Rate Site albuterol-ipratropium Given 08/04/2016 3:45 AM CDT 3 mLs 2.5mg-0.5mg/3mL nebulizer solution 3 mL 3 mL, Nebulization, ED 1 Time, On 08/04/16 at 0400, For 1 dose albuterol-ipratropium 2.5mg-0.5mg/3mL Given 08/04/2016 5:20 AM CDT 3 mLs nebulizer solution 3 mL 3 mL, Nebulization, ED 1 Time, On Thu08/04/16 at 0515, For 1 dose aspirin tablet 325 mg Given 08/04/2016 3:54 AM CDT 325 mg 325 mg, Oral, ED 1 Time, On Thu08/04/16 at 0400, For 1 dose methylPREDNISolone sodium succinate Given 08/04/2016 4:00 AM CD T 125 mg injection 125 mg 125 mg, Intravenous, ED 1 Time, On Thu08/04/16 at 0400, For 1 dose documented in this encounter Active and Recently Administered Medications Times are shown in CDT. Scheduled Medication Order 08/02/2016 08/03/2016 08/04/2016 albuterol-ipratropium 2.5mg-0.5mg/3mL nebulizer solution 3 mL (C OMPLETED) 0345 (Given - Provider: Dong Medrano CRT) 3 mL, Nebulization, ED 1 Time, Thu08/04/16 at 0400, For 1 dose albuterol-ipratropium 2.5mg-0.5mg/3mL nebulizer solution 3 mL (C OMPLETED) 0520 (Given - Provider: Dong Medrano CRT) 3 mL, Nebulization, ED 1 Time, Thu08/04/16 at 0515, For 1 dose aspirin tablet 325 mg (COMPLETED) 0354 (Given - Provider: Arline Stanton RN) 325 mg, Oral, ED 1 Time, Thu08/04/16 at 0400, For 1 dose methylPREDNISolone sodium succinate injection 125 mg (COMPLETED) 0400 (Given - Provider: Arline Stanton RN) 125 mg, Intravenous, ED 1 Time, 08/04/16 at 0400, For 1 dose documented in this encounter
--- OUTSIDE RECORDS SUMMARY | 2020-04-15 13:32 | XMS_ITS | Encounter Summary ---
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 Stefanie Chi (dysfunctional [address] Dacia Barton MD uterine bleeding) [address] [facility] (Primary Dx) [place], [place] [address] [address] [place], [place] [phone] [address] Volunteer Services Director: [phone] Lydia Black Social History Tobacco Use Types Packs/Day Years [...] Sign Reading Time Taken Comments Blood Pressure 120/70 05/22/2014 10:31 AM CDT Pulse - - Temperature - - Respiratory Rate - - Oxygen Saturation - - Inhaled Oxygen Concentration - - Weight 97.1 kg (214 lb) 05/22/2014 10:31 AM CDT Height 175.3 cm (5' 9) 05/22/2014 10:31 AM CDT Body Mass Index 31.6 05/22/2014 10:31 AM CDT documented in this encounter Procedure Notes Stefanie Chi MD - 05/22/2014 1:27 PM CDTAssociated Order(s): BIOPSY (GYNECOLOGICAL)Pre-Procedure Diagnose(s): DUB (dysfunctional uterine bleeding) Biopsy (Gynecological) Date/Time: 05/22/2014 1:27 PM Performed by: STEFANIE CHI Authorized by: STEFANIE CHI Consent Done?: Yes (Written) Patient was prepped and draped in the normal sterile fashion. Local anesthesia used?: No Biopsy Location: Uterus Estimated blood loss (cc): 10 Patient tolerated the procedure well with no immediate complications. Pelvic rest for 2 weeks. Bleeding, pain and fever precautions given. documented in this encounter Plan of Treatment Not on filedocumented as of this encounter Goals Goal Patient Goal Associated Recent Patient-Stated? Author Type Problems Progress Blood Pressure Blood 197/101 Yes Myochsner, < 130/80 Pressure (02/21/2020 System Messag e 10:15 AM SENIOR GAME ADVISOR) Take at least Blood No Cutura, one BP reading Pressure Precious per week at various times of the day Maintain a low Diet No Cutura, sodium diet Precious Note: [place] [employer] (AHA) guideli francisco recommend less [...] Name Priority Date/Time Associated Diagnosis Comme nts NC BIOPSY OF UTERUS Routine 05/22/2014 1:28 PM DUB (dysfuncti onal Results for this LINING CDT uterine bleeding) procedure are in the results section. TISSUE SPECIMEN TO Routine 05/22/2014 11:35 AM DUB (dysfunctio nal Results for this PATHOLOGY, CDT uterine bleeding) procedure are in OBSTETRICS/GYNECOLO the resu lts GY section. POCT URINE Routine 05/22/2014 10:32 AM DUB (dysfunctional Re sults for this CDT uterine bleeding) procedure are in the results section. documented in this encounter Results Biopsy (Gynecological) (05/22/2014 1:28 PM CDT) Narrative Performed At Stefanie Chi MD ? 05/22/2014 ??1:28 PM Biopsy (Gynecological) Date/Time: 05/22/2014 1:27 PM Performed by: STEFANIE CHI Authorized by: STEFANIE CHI Consent Done?: ??Yes (Written) Patient was prepped and draped in the n ormal sterile fashion. Local anesthesia used?: No ?? Biopsy Location: ??Uterus Estimated blood loss (cc): ??10 Patient tolerated the procedure well wi th no immediate complications. Pelvic rest for 2 weeks. Bleeding, pain and fever precautions given. Tissue Specimen To Pathology, Obstetrics/Gynecology (05/22/2014 11:35 AM CDT) Specimen INDUSTRIAL TRUCK MECHANIC, biopsy not cone Performing Organization Address City/State/ZIP Code Phon e Number ROGELIO PROGENY POCT urine (05/22/2014 10:32 AM CDT) Pathologist Sig nature POC Preg Test, Ur Negative Negative Interior Block Wirer Acceptable Yes Specimen Urine documented in this encounter Visit Diagnoses Diagnosis DUB (dysfunctional uterine bleeding) - P rimary Other disorder of menstruation and other abnormal bleeding from female genital tract documented in this encounter
--- OUTSIDE RECORDS SUMMARY | 2020-04-15 13:32 | XMS_ITS | Encounter Summary ---
:1975 Author Organization [facility] and It s Subsidiaries and Affiliates Address [address] [place] [address] Care Team Providers Name Role Phone Jyoti Hughes MD Primary Care Provider Reason for Visit Reason Comments Shoulder Pain L shoulder pain since last n ight. pt states pain radiates to left chest, to neck and down her back. She was referred to ED by PCP for further workup of rotator cu ff. denies SOB or dizziness. Encounter Details Date Type Department Care Team Description 11/27/[address] [facility] Neetu Pritchard M D Chest pain (Primary Dx); [facility] [address] Acute pain of left shoulder; [address] Left shoulder strain, initial encounter [place] [id number] [place] [address] [phone] Social History Tobacco Use Types Packs/Day Years [...] or relatives? How often do you attend religion or 1 to 4 times per year 10/08 bahai services? Do you belong to any clubs or No 10/30/2018 organizations such as religion groups, unions, fraternal or athletic groups, or [...] Sign Reading Time Taken Comments Blood Pressure 135/60 11/27/2016 12:12 PM CDT Pulse 71 11/27/2016 12:12 PM CDT Temperature 36.6 ??C (97.9 ??F) 11/27/2016 9:14 AM CDT Respiratory Rate 20 11/27/2016 12:12 PM CDT Oxygen Saturation 95% 11/27/2016 12:12 PM CDT Inhaled Oxygen Concentration - - Weight 122 kg (269 lb) 11/27/2016 9:14 AM CDT Height 170.2 cm (5' 7) 11/27/2016 9:14 AM CDT Body Mass Index 42.13 11/27/2016 9:14 AM CDT documented in this encounter Discharge Instructions Neetu Dominguez MD - 11/27/2016Take ibuprofen 600mg every 6 hours. Take valium as directed. Try applying heat for 20 minutes, do range of motion exercises, then ice for 20 minutes. See your doctor if you are not better with this treatment. AttachmentsThe following attachments cannot be sent through Care Everywhere. Exercises for Shoulder Flexibility: Wall Walk (Solomon Islander)Exercises for Shoulder Flexibility: Back Scratch (Sol[place] Islander)Exercises for Shoulder Flexibility: Adduction (Reaching Across) (Sol[place] Islander)Exercises for Shoulder Flexibility, Internal Rotation ([place] Islander)Exercises for Shoulder Flexibility, External Rotation (Sol[place] Islander) documented in this encounter Medications at Time of Discharge Medication Sig Dispensed Refills Start Date End Date albuterol 90 Inhale 1-2 puffs 1 Inhaler 0 08/04/20162017 mcg/actuation inhaler into the lungs every 6 (six) hours as needed for Wheezing. Rescue aspirin (ECOTRIN) 81 MG Take 81 mg by mouth 0 01/11/2019 EC tablet once daily. diazePAM (VALIUM) 5 MG Take 1 tablet (5 mg 15 tablet 0 11/0803/28/2018 tablet total) by mouth every 8 (eight) hours. KLOR-CON M10 10 mEq 0 01/10/201403/28 tablet [...] documented as of this encounter ED Notes Neetu Pritchard MD - 11/27/2016 11:42 AM CDT Encounter Date: 11/27/2016 History Chief Complaint Patient presents with ??? Shoulder Pain L shoulder pain since last night. pt states pain radiates to left chest, to neck and down her back. She was referred to ED by PCP for further workup of rotator cuff. denies SOB or dizziness. 41F with hypertension and atrial fibrillation presents with chest pain since last night. The patient states her pain began around 8:30 last night. It is a pressure type pain that radiates to her back. No associated shortness of breath or palpitations. She also reports left shoulder pain. She states it is worse with range of motion of her shoulder and she has been requiring assistance to move it. She saw her primary care physician earlier today and was sent to the ER for further evaluation. Review of patient's allergies indicates: No Known [...] ??? Alcohol use No Review of Systems Respiratory: Negative for shortness of breath. Cardiovascular: Positive for chest pain. Musculoskeletal: Positive for arthralgias. All other systems reviewed and are negative. Physical Exam Initial Vitals [11/27/16 0914] BP Pulse Resp Temp SpO2 (!) 179/84 71 18 97.9 ??F (36.6 ??C) 100 % MAP 115.67 Physical Exam Nursing note and vitals reviewed. Constitutional: She appears well-developed and well-nourished. No distress. HENT: Head: Normocephalic and atraumatic. Eyes: Conjunctivae are normal. Neck: Normal range of motion. Cardiovascular: Normal rate, regular rhythm, normal heart sounds and intact distal pulses. Pulmonary/Chest: Breath sounds normal. She has no wheezes. She has no rhonchi. She has no rales. Abdominal: Bowel sounds are normal. She exhibits no distension. Musculoskeletal: She exhibits tenderness. Left shoulder tenderness, unable to perform active ROM, allows passive ROM Neurological: She is alert and oriented to person, place, and time. She has normal strength. Skin: Skin is warm and dry. Psychiatric: She has a normal mood and affect. Her behavior is normal. ED Course Procedures Labs Reviewed CBC W/ AUTO DIFFERENTIAL - Abnormal; Notable for the following: Result Value MCH 25.8 (*) MCHC 31.2 (*) All other components within normal limits COMPREHENSIVE METABOLIC PANEL TROPONIN I POCT URINE EKG Readings: (Independently Interpreted) Initial Reading: No STEMI. Rhythm: Normal Sinus Rhythm. Heart Rate: 74. Ectopy: No Ectopy. T Waves Flipped: V3, V4, V5, V6, III and AVF. Gro[place]beck: Right [place]beck Deviation. Clinical Impression: Normal Sinus Rhythm Medical Decision Making: History: Old Medical Records: I decided to obtain old medical records. Old Records Summarized: records from clinic visits. <> Summary of Records: I reviewed Family Medicine clinic note - concern for ACS Independently Interpreted Test(s): I have ordered and independently interpreted EKG Reading(s) - see prior notes Clinical Tests: Lab Tests: Ordered and Reviewed Radiological Study: Ordered and Reviewed Medical Tests: Ordered and Reviewed ED Management: 41F presents with chest pain and left shoulder pain. Unable to perform active ROM but allows passive ROM. CP - concern for ACS. No AMI on EKG. She does have T wave inversions. Normal troponin after 12+ hours of CP; I doubt this is cardiac. Pt was given toradol and valium for her left shoulder pain. She was able to range her shoulder after these medications and reports improvement in her pain also. I feel this all related to shoulder strain. Pt does state she has been doing a body pump class. I will treat with valium and motrin. ED Course Clinical Impression: The primary encounter diagnosis was Chest pain. Diagnoses of Acute pain of left shoulder and Left shoulder strain, initial encounter were also pertinent to this visit. Neetu Pritchard MD 11/27/16 1159 Urszula Braxton - 11/27/2016 11:26 AM CDTBed rails are up and call light is within patient reach. Urszula Braxton - 11/27/2016 11:26 AM CDTFamily at bedside. Urszula Braxton - 11/27/2016 11:26 AM CDTPatient placed on continuous registered nurse cardiac, automatic blood pressure cuff and continuous pulse oximeter. Cinthya Garcia RN - 11/27/2016 11:00 AM CDTPt provided with gown and instructed to change into it and remove all metal. Pt verbalized understanding. Patient on registered nurse cardiac, automatic blood pressure cuff and pulse oximeter. Cinthya Garcia RN - 11/27/2016 10:15 AM CDT41 Y/O F with CC of L shoulder pain that radiates to L neck and chest. Pt reports excruciating sharppain through chest when L arm is moved. Pain started last night, denies trauma. Reports taking Fioricet last night for the pain without relief. No other complaints verbalized. Will continue to monitor. documented in this encounter Plan of Treatment Not on filedocumented as of this encounter Goals Goal Patient Goal Associated Recent Patient-Stated? 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 POCT URINE STAT 11/27/2016 11:10 Res ults for this AM CDT procedure are i n the results section. CBC W/ AUTO STAT 11/27/2016 11:01 Results for this DIFFERENTIAL AM CDT procedure are i n the results section. TROPONIN I STAT 11/27/2016 11:01 Results for this AM CDT procedure are i n the results section. COMPREHENSIVE STAT 11/27/2016 11:01 Results fo r this METABOLIC PANEL AM CDT procedure ar e in the results section. EKG 12-LEAD Routine 11/27/2016 9:21 Chest pain Results for this AM CDT procedure are i n the results section. EKG 12-LEAD 11/27/2016 12:00 AM CDT documented in this encounter Results X-Ray Chest PA And Lateral (11/27/2016 11:33 AM CDT) Specimen Impressions Performed At No evidence acute cardiac or pulmonary disease. [employer] Electronically signed by: MELISSA Maria MD Date: 11/27/16 Time: 11:40 Narrative Performed At Views: PA and lateral [facility] There is no pneumothorax, pleural effusion or focal consolidation. ??The cardiac silhouette is within norm al limits. The trachea is midline. ??The osseous structures are unremarkable. Procedure Note Interface, Rad Results In - 11/27/2016 1 1:41 AM CDT Views: PA and lateral There is no pneumothorax, pleural effusi on or focal consolidation. The cardiac silhouette is within normal limits. The trachea is midline. The osseous structures are unremarkable. IMPRESSION: No evidence acute cardiac or pulmonary disease. Electronically signed by:MELISSA TOMLIN MD Date: 11/27/16 Time:11:40 Performing Organization Address City/State/ZIP Code Phon e Number [facility] [employer] n/a POCT urine (11/27/2016 11:10 AM CDT) Pathologist Sig nature POC Preg Test, Ur Negative Negative Box Puller Acceptable Yes Specimen Troponin I (11/27/2016 11:01 AM CDT) Troponin I <0.006 0.000 - 0.026 [facility] Comment: ng/mL [facility] The reference interval for Troponin I represents the 9 9th percentile cutoff for our facility and is consistent with 3rd generation assay performance. Specimen Blood - Blood Performing Organization Address City/[facility]/ZIP Code Phon e Number [facility] - [address] [facility] Anandacristofer [place], [place] [address] [place] Comprehensive metabolic panel (11/27/2016 11:01 AM CDT) Pathologist [facility] Sodium 138 136 - 145 [facility] mmol/L [facility] Potassium 4.4 3.5 - 5.1 [facility] mmol/L [facility] Chloride 105 95 - 110 [facility] mmol/L [facility] CO2 24 23 - 29 [facility] mmol/L [facility] Glucose 107 70 - 110 [facility] mg/dL [facility] BUN 12 6 - 20 mg/dL [facility] Creatinine 1.0 0.5 - 1.4 [facility] mg/dL [facility] Calcium 9.3 8.7 - 10.5 [facility] mg/dL [facility] Total Protein 8.0 6.0 - 8.4 [facility] g/dL [facility] Albumin 4.0 3.5 - 5.2 [facility] g/dL [facility] Total Bilirubin 0.3 0.1 - 1.0 [facility] Comment: mg/dL [facility] For infants and newborns, interpretation of results sh ould be based on gestational age, weight and in agreement with clini stefania observations. Premature Infant recommended reference ranges: Up to 24 hours.............<8.0 mg/dL Up to 48 hours............<12.0 mg/dL 3-5 days..................<15.0 mg/dL 6-29 days.................<15.0 mg/dL Alkaline 83 55 - 135 U/L [facility] Phosphatase [facility] AST 16 10 - 40 U/L [facility] ALT 14 10 - 44 U/L [facility] Anion Gap 9 8 - 16 [facility] mmol/L [facility] eGFR if >60 >60 [facility] Algerian mL/min/1.73 [facility] m^2 eGFR if non >60 >60 [facility] Comment: mL/min/1.73 [facility] Calculation used to obtain the estimated glomerular fi ltration m^2 rate (eGFR) is the CKD-EPI equation. Since race is unk nown in our information system, the eGFR values for -Algerian and Hcd-Llvferx-Pveditbd patients are given for each creatinine result. Specimen Blood - Blood Performing Organization Address City/State/ZIP Code Phon e Number [facility] - [address] [facility] [place] [address] [place] CBC auto differential (11/27/2016 11:01 AM CDT) Pathologist Sig nature WBC 10.82 3.90 - 12.70 [facility] K/uL [facility] RBC 5.04 4.00 - 5.40 [facility] M/uL [facility] Hemoglobin 13.0 12.0 - 16.0 [facility] g/dL [facility] Hematocrit 41.7 37.0 - 48.5 % [facility] MCV 83 82 - 98 fL [facility] MCH 25.8 (L) 27.0 - 31.0 pg [facility] MCHC 31.2 (L) 32.0 - 36.0 [facility] g/dL [facility] RDW 14.2 11.5 - 14.5 % [facility] Platelets 328 150 - 350 K/uL [facility] MPV 10.5 9.2 - 12.9 fL [facility] Gran # (ANC) 6.7 1.8 - 7.7 K/uL [facility] Lymph # 2.9 1.0 - 4.8 K/uL [facility] Beauregard # 1.0 0.3 - 1.0 K/uL [facility] Eos # 0.2 0.0 - 0.5 K/uL [facility] Baso # 0.02 0.00 - 0.20 [facility] K/uL [facility] Gran % 61.7 38.0 - 73.0 % [facility] Lymph % 26.9 18.0 - 48.0 % [facility] Beauregard % 9.1 4.0 - 15.0 % [facility] Eosinophil % 1.7 0.0 - 8.0 % [facility] Basophil % 0.2 0.0 - 1.9 % [facility] Differential Method Automated [facility] Specimen Blood - Blood Performing Organization Address City/State/ZIP Code Phon e Number [facility] - [address] [facility] [place] [address] [place] EKG 12-lead (11/27/2016 9:21 AM CDT) Specimen Narrative Performed At Test Reason : R07.9 Liquid X Blood Pressure : / mmHG Vent. Rate : 074 BPM ? Atrial Rate : 074 BPM ?? P-R Int : 156 ms ?QRS D ur : 076 ms ?QT Int : 390 ms ? P-R-T Axe s : 054 091 -12 degrees ?? QTc Int : 432 ms Normal sinus rhythm Rightward axis Right ventricular conduction delay ST elevation, consider early repolarizat ion, pericarditis, or injury T wave abnormality, consider inferolater al ischemia Abnormal ECG When compared with ECG of 04-AUG-2016 03 :53, T wave inversion now present in inferior lateral leads Confirmed by Eunice Leiva MD ([id number]) on 11/28/2016 4:58:04 AM Referred By: AAAREFERR SELF ? Confirmed By:Eunice Leiva MD Performing Organization Address City/State/ZIP Code Phon e Number [facility] N/A EKG 12-LEAD (11/27/2016 12:00 AM CDT) Narrative Performed At This result has an attachment that is no t available. documented in this encounter Visit Diagnoses Diagnosis Chest pain - Primary Acute pain of left shoulder Left shoulder strain, initial encounter documented in this encounter Administered Medications Inactive Administered Medications - up to 3 most recent administrations Medication Order MAR Action Action Date Dose Rate Site diazePAM injection 5 mg Given 11/27/2016 11:16 AM CDT 5 mg 5 mg, Intravenous, ED 1 Time, On Deann 11/27/16 at 1100, For 1 dose ketorolac injection 10 mg Given 11/27/2016 11:16 AM CDT 10 mg 10 mg, Intravenous, ED 1 Time, On Deann 11/27/16 at 1100, For 1 dose documented in this encounter Active and Recently Administered Medications Times are shown in CDT. Scheduled Medication Order 11/25/2016 11/26/2016 11/27/2016 diazePAM injection 5 mg (COMPLETED) 1116 (Given - Provider: Cinthya Jimenez, RN) 5 mg, Intravenous, ED 1 Time, Deann 11/27/16 at 1100, For 1 dose ketorolac injection 10 mg (COMPLETED) 1116 (Given - Provider: Cinthya Jimenez, RN) 10 mg, Intravenous, ED 1 Time, Deann 11/27/16 at 1100, For 1 dose documented in this encounter
--- OUTSIDE RECORDS SUMMARY | 2020-04-15 13:32 | XMS_ITS | Encounter Summary ---
:1975 Author Organization [facility] and It s Subsidiaries and Affiliates Address [address] [place] [address] Care Team Providers Name Role Phone Unavailable Primary Care Provider Unavailable Encounter Details Date Type Department Care Team Description 04/29/2010 Historical [facility] [place]/ AGENCY SALES DIRECTOR Stefanie Chi MD [address] [facility], [address] [place] [address] [address] [place] [address] [place] [address] [phone] Development Rep: Lydia Gallo [phone] (Jacquelin ax) [place] Social History Tobacco Use Types Packs/Day Years [...] Pressure (02/21/2020 System 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
--- OUTSIDE RECORDS SUMMARY | 2020-04-15 13:32 | XMS_ITS | Encounter Summary ---
:1975 Author Organization [facility] and [facility] Subsidiaries and Affiliates Address [address] [place] [address] Care Team Providers Name Role Phone No, Doctor Primary Care Provider Unavailable Reason for Visit Reason Comments Gynecologic Exam Encounter Details Date Type Department Care Team Description 12/13/[address] [facility] - OB/ PRODUCT TRANSFER PUMPER Stefanie Chi Gynaecologic exam normal (Pr imary Dx); 120 Dacia Barton MD Gynecologic exam normal; [id number] [facility] Other screening mammogram [place] [phone] [address] [place], [place] Resin Coater: [id number] Lydia Black [phone] Social History Tobacco Use Types Packs/Day Years [...] or relatives? How often do you attend [employer] or 1 to 4 times per year 10/08 [employer] services? Do you belong to any clubs or No 10/30/2018 organizations such as [employer] groups, unions, fraternal or athletic groups, or [...] - Inhaled Oxygen Concentration - - Weight 114.8 kg (253 lb) 12/13/2012 1:29 PM CDT Height 167.6 cm (5' 6) 12/13/2012 1:29 PM CDT Body Mass Index 40.84 12/13/2012 1:29 PM CDT documented in this encounter Patient Instructions Patient InstructionsAltagracia Bess LPN - 12/13/2012 1:36 PM CDTThank you for enrolling in [employer]. Please follow the instructions below to securely access your online medical record. My allows you to send messages to your doctor, view your test results, renew your prescriptions, schedule appointments, and more. How Do I Sign Up? 1. In your Internet browser, go to [email or web address]. 2. In the lower right of the page, click the Activate Now link located under the Have Access Code? Title. 3. Enter your [employer] Access Code exactly as it appears below. You will not need to use this code after you???ve completed the sign-up process. If you do not sign up before the expiration date, you must request a new code. [employer] Access Code: [email or web address] Expires: 11/15/2013 9:53 AM 4. Enter Date of (mm/dd/yyyy) as indicated and click the Next button. You will be taken to thenext sign-up page. 5. Create a [employer] ID. This will be your new [employer] login ID and cannot be changed, so think of one that is secure and easy to remember. 6. Create a [employer] password. Your password must be at least 8 characters long and contain at least 1 letter and 1 number. You can change your password at any time. 7. Enter your Password Reset Question and Answer, then click the Next button. 8. Enter your e-mail address. You will receive e-mail notification when new information is availablein [employer]. 9. Click Sign Up. You can now view your medical record. Additional Information If you have questions, you can email [employer] or call [phone] to talk to our [employer] staff. Remember, [employer] is NOT to be used for urgent needs. For medical emergencies, dial 911. documented in this encounter Progress Notes Stefanie Chi MD - 12/13/2012 1:57 PM CDT HISTORY OF PRESENT ILLNESS: Remedios Schofield is a 37 y.o. female, No obstetric history on file., Patient's last menstrual period was 12/08/2012., presents for a routine exam and has no complaints. Past Medical History Diagnosis Date ??? Hypertension ??? Atrial fibrillation 1983 History reviewed. No pertinent past surgical history. MEDICATIONS AND ALLERGIES: Current outpatient prescriptions:aspirin 81 mg Tab, Take by mouth., Disp: , Rfl: ; ferrous sulfate 325 mg (65 mg iron) Tab tablet, Take 325 mg by mouth daily with breakfast., Disp: , Rfl: ; losartan-hydrochlorothiazide 100-25 mg (HYZAAR) 100-25 mg per tablet, , Disp: , Rfl: ; potassium chloride (KLOR-CON) 10 MEQ TbSR, , Disp: , Rfl: ; sotalol (BETAPACE) 120 MG Tab, , Disp: , Rfl: clotrimazole-betamethasone 1-0.05% (LOTRISONE) cream, , Disp: , Rfl: ; hydrOXYzine (ATARAX) 25 MG tablet, , Disp: , Rfl: No Known Allergies Family History Problem Relation Age of Onset ??? Diabetes Father ??? Eclampsia Father ??? Eclampsia Mother ??? Diabetes Mother ??? Cancer Mother ??? Diabetes Sister ??? Eclampsia Sister ??? Breast cancer Neg Hx ??? Ovarian cancer Neg Hx History Social History ??? Marital Status: Spouse Name: N/A Number of Children: N/A ??? Years of Education: N/A Occupational History ??? Not on file. Social History Main Topics ??? Smoking status: Never Smoker ??? Smokeless tobacco: Never Used ??? Alcohol Use: No ??? Drug Use: No ??? Sexually Active: Yes -- Male partner(s) Control/ Protection: None Other Topics Concern ??? Not on file Social History Narrative ??? 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 Infection History: Denies STDs. Denies PID. Benign History: Denies uterine fibroids. Denies ovarian cysts. Denies endometriosis. Denies other conditions. Cancer History: Denies cervical cancer. Denies uterine cancer or hyperplasia. Denies ovarian cancer.Denies vulvar cancer or pre-cancer. Denies vaginal cancer or pre-cancer. Denies breast cancer. Denies colon cancer. Sexual Activity History: Denies currently being sexually active Menstrual History: Flows ever Days. For Days. Flow. Dysmenorrhea History: Contraception: ROS: GENERAL: No weight changes. No swelling. No fatigue. No fever. CARDIOVASCULAR: No chest pain. No shortness of breath. No leg cramps. NEUROLOGICAL: No headaches. No vision changes. BREASTS: No pain. No lumps. No discharge. ABDOMEN: No pain. No nausea. No vomiting. No diarrhea. No constipation. REPRODUCTIVE: No abnormal bleeding. VULVA: No pain. No lesions. No itching. VAGINA: No relaxation. No itching. No odor. No discharge. No lesions. URINARY: No incontinence. No nocturia. No frequency. No dysuria. Ht 5' 6 (1.676 m) Wt 253 lb (114.76 kg) BMI 40.84 kg/m2 LMP 12/08/2012 PE: APPEARANCE: Well nourished, well developed, in no acute distress. AFFECT: WNL, alert and oriented x 3. SKIN: No acne or hirsutism. NECK: Neck symmetric, without masses or thyromegaly. NODES: No inguinal, cervical, axillary or femoral lymph node enlargement. CHEST: Good respiratory effort. ABDOMEN: Soft. No tenderness or masses. No hepatosplenomegaly. No hernias. BREASTS: Symmetrical, no skin changes, visible lesions, palpable masses or nipple discharge bilaterally. PELVIC: External female genitalia without lesions. Female hair distribution. Adequate perineal body, Normal urethral meatus. Vagina moist and well rugated without lesions or discharge. No significantcystocele or rectocele present. Cervix pink without lesions, discharge or tenderness. Uterus is 12-14 weeks in size, irregular, mobile and nontender. Adnexa without masses or tenderness. 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 Uterine fibriods LABS AND TESTS ORDERED: MEDICATIONS PRESCRIBED: COUNSELING: The patient was counseled today on: -A.C.S. Pap and pelvic exam guidelines, recomendations for yearly mammogram, monthly self breast exams and to follow up with her PCP for other health maintenance. FOLLOW-UP with me annually. documented in this encounter Plan of Treatment Not on filedocumented as of this encounter Goals Goal Patient Goal Associated Recent Patient-Stated? Author Type Problems Progress Blood Pressure Blood 197/101 Yes Myochsner, < 130/80 Pressure (02/21/2020 System Messag e 10:15 AM ACIDIZER) Take at least Blood No Cutura, one [...] Name Priority Date/Time Associated Diagnosis Comme nts LIQUID-BASED PAP Routine 12/13/2012 2:06 PM Gynecologic exam normal SMEAR, SCREENING CDT documented in this encounter Results Mammo Digital Screening Bilat with Tomosynthesis_CAD (04/26/2013 1:41 PM ACIDIZER) Specimen Impressions Performed At [facility] There is no mammographic evidence of mal ignancy. Mammogram in 1 year is recommended. ACR BI-RADS Category 1: Negative ARPAN FREEMAN M.D. 04/26/2013 Narrative Performed At The present examination has been compared to prior rashawn ging [facility] studies dated 04/08/2010. MAMMO DIGITAL SCREENING BILAT WITH TOMOS YNTHESIS The breast tissue is heterogeneously dense. ??This may lower the sensitivity of mammography. No significant abnormalities are seen. Digital tomosynthesis was performed and used in the interpretation of the images. These images ??were processed to produce digital image s analyzed for potential abnormalities. Procedure Note Interface, Rad Results In - 04/26/2013 3:39 PM ACIDIZER The present examination has been compared to prior imaging studies dated 04/08/2010. MAMMO DIGITAL SCREENING BILAT WITH TOMOS YNTHESIS The breast tissue is heterogeneously den se. This may lower the sensitivity of mammography. No significant abnormalities are seen. Digital tomosynthesis was performed and used in the interpretation of the images. These images were processed to produce digital images analyzed for potential abnormalities. IMPRESSION: There is no mammographic evidence of mal ignancy. Mammogram in 1 year is recommended. ACR BI-RADS Category 1: Negative ARPAN FREEMAN M.D. 04/26/2013 Performing Organization Address City/State/ZIP Code Phon e Number [facility] [employer] [facility] n/a Liquid-based pap smear, screening (12/13/2012 2:06 PM CDT) Specimen Genital - Cervix, screening Performing Organization Address City/State/ZIP Code Phon e Number [facility] documented in this encounter Visit Diagnoses Diagnosis Gynaecologic exam normal - Primary Gynecologic exam normal Routine gynecological examination Other screening mammogram documented in this encounter
--- OUTSIDE RECORDS SUMMARY | 2020-04-15 13:32 | XMS_ITS | Encounter Summary ---
:1975 Author Organization [facility] and It s Subsidiaries and Affiliates Address [address] [place] [address] Care Team Providers Name Role Phone Jyoti Hughes MD Primary Care Provider Reason for Visit Reason Comments Cough Wheezing Encounter Details Date Type Department Care Team Description 04/29/2017 Office Visit [facility] - Mine Flowers, Bronchitis (Primary Dx); Sima JOSEPH Wheezing [address] [place] [phone] [address] [phone] [place] [id number] Social History Tobacco Use [...] Sign Reading Time Taken Comments Blood Pressure 159/103 04/29/2017 12:22 PM DRIED FRUIT WASHER Pulse 90 04/29/2017 11:43 AM DRIED FRUIT WASHER Temperature 36.7 ??C (98 ??F) 04/29/2017 11:43 AM DRIED FRUIT WASHER Respiratory Rate 16 04/29/2017 11:43 AM DRIED FRUIT WASHER Oxygen Saturation 96% 04/29/2017 11:43 AM DRIED FRUIT WASHER Inhaled Oxygen Concentration - - Weight 121.6 kg (268 lb) 04/29/2017 11:43 AM DRIED FRUIT WASHER Height 167.6 cm (5' 6) 04/29/2017 11:43 AM DRIED FRUIT WASHER Body Mass Index 43.26 04/29/2017 11:43 AM DRIED FRUIT WASHER documented in this encounter Patient Instructions Patient Mine Molina MD - 04/29/2017 12:23 PM DRIED FRUIT WASHER Elevated Blood Pressure Your blood pressure was elevated during your visit to the urgent care. It was not so high that immediate care was needed but it is recommended that you monitor your blood pressure over the next week or two to make sure that it is not staying elevated. Please have your blood pressure taken 2-3 times daily at different times of the day. Write all of those blood pressures down and record the time that they were taken. Keep all that information and take it with you to see your Primary Care Physician. If your blood pressure is consistently above 140/90 you will need to follow up with your PCP more quickly Bronchitis with Wheezing (Viral or Bacterial: Adult) Bronchitis is an infection of the air passages. It often occurs during a cold and is usually caused by a virus. Symptoms include cough with mucus (phlegm) and low-grade fever. This illness is contagious during the first few days and is spread through the air by coughing and sneezing, or by direct contact (touching the sick person and then touching your own eyes, nose, or mouth). If there is a lot of inflammation, air flow is restricted. The air passages may also go into spasm, especially if you have asthma. This causes wheezing and difficulty breathing even in people who do not have asthma. Bronchitis usually lasts 7 to 14 days. The wheezing should improve with treatment during the first week. An inhaler is often prescribed to relax the air passages and stop wheezing. Antibiotics will be prescribed if your doctor thinks there is also a secondary bacterial infection. Home care ?? If symptoms are severe, rest at home for the first 2 to 3 days. When you go back to your usual activities, don't let yourself get too tired. ?? Do not smoke. Also avoid being exposed to secondhand smoke. ?? You may use [id number] medicine to control fever or pain, unless another medicine was prescribed. Note: If you have chronic liver or kidney disease or have ever had a stomach ulcer or gastrointestinal bleeding, talk with your healthcare provider before using these medicines. Also talk to yourprovider if you are taking medicine to prevent blood clots.) Aspirin should never be given to anyoneyounger than 18 years of age who is ill with a viral infection or fever. It may cause severe liver or brain damage. ?? Your appetite may be poor, so a light diet is fine. Avoid dehydration by drinking 6 to 8 glasses of fluids per day (such as water, soft drinks, sports drinks, juices, tea, or soup). Extra fluids will help loosen secretions in the nose and lungs. ?? Jdsu-[id number]-xkdgsdg cough, cold, and sore-throat medicines will not shorten the length of the illness, but they may be helpful to reduce symptoms. (Note: Do not use decongestants if you have high bloodpressure.) ?? If you were given an inhaler, use it exactly as directed. If you need to use it more often than prescribed, your condition may be worsening. If this happens, contact your healthcare provider. ?? If prescribed, finish all antibiotic medicine, even if you are feeling better after only a few days. Follow-up care Follow up with your healthcare provider, or as advised. If you had an X-ray or ECG (electrocardiogram), a specialist will review it. You will be notified of any new findings that may affect your care. Note: If you are age 65 or older, or if you have a chronic lung disease or condition that affects your immune system, or you smoke, talk to your healthcare provider about having a pneumococcal vaccinations and a yearly influenza vaccination (flu shot). When to seek medical advice Call your healthcare provider right away if any of these occur: ?? Fever of 100.4??F (38??C) or higher ?? Coughing up increasing amounts of colored sputum ?? Weakness, drowsiness, headache, facial pain, ear pain, or a stiff neck Call 911, or get immediate medical care Contact emergency services right away if any of these occur. ?? Coughing up blood ?? Worsening weakness, drowsiness, headache, or stiff neck ?? Increased wheezing not helped with medication, shortness of breath, or pain with breathing Date Last Reviewed: 11/19/2014 ?? [id number] [employer] [address] [place] [address], [place] [address]. All rights reserved. This information is not intended as a substitute for professional medical care. Always follow your healthcare professional's instructions. Remedios was seen today for cough and wheezing. Diagnoses and all orders for this visit: Bronchitis - betamethasone acetate-betamethasone sodium phosphate injection 9 mg; Inject 1.5 mLs (9 mg total) into the muscle one time. - cefTRIAXone injection 1 g; Inject 1 g into the muscle one time. - albuterol nebulizer solution 2.5 mg; Take 3 mLs (2.5 mg total) by nebulization one time. - albuterol 90 mcg/actuation inhaler; Inhale 2 puffs into the lungs every 6 (six) hours as needed for Wheezing or Shortness of Breath. Rescue - inhalation spacing device; Use as directed for inhalation. - amoxicillin-clavulanate 875-125mg (AUGMENTIN) 875-125 mg per tablet; Take 1 tablet by mouth 2 (two) times daily. Wheezing - betamethasone acetate-betamethasone sodium phosphate injection 9 mg; Inject 1.5 mLs (9 mg total) into the muscle one time. - cefTRIAXone injection 1 g; Inject 1 g into the muscle one time. - albuterol nebulizer solution 2.5 mg; Take 3 mLs (2.5 mg total) by nebulization one time. - albuterol 90 mcg/actuation inhaler; Inhale 2 puffs into the lungs every 6 (six) hours as needed for Wheezing or Shortness of Breath. Rescue - inhalation spacing device; Use as directed for inhalation. - amoxicillin-clavulanate 875-125mg (AUGMENTIN) 875-125 mg per tablet; Take 1 tablet by mouth 2 (two) times daily. Follow Up Comments Make sure that you follow up with your primary care doctor in the next 2-5 days if needed . Return to the Urgent Care if signs or symptoms change and certainly if you have worsening symptoms go to [facility] emergency department for further evaluation. Mine Flowers MD D FRUIT WASHER documented in this encounter Progress Notes Mine Flowers MD - 04/29/2017 11:40 AM CST Subjective: Patient ID: Remedios Schofield is a 42 y.o. female. Vitals: height is 5' 6 (1.676 m) and weight is 121.6 kg (268 lb). Her temperature is 98 ??F (36.7 ??C). Her blood pressure is 159/103 (abnormal) and her pulse is 90. Her respiration is 16 and oxygen saturation is 96%. Chief Complaint: Cough and Wheezing Cough This is a new problem. The current episode started in the past 7 days. The problem has been waxing and waning. The problem occurs hourly. The cough is productive of sputum. Associated symptoms include ear congestion, headaches, nasal congestion and postnasal drip. Pertinent negatives include no chest pain, chills, ear pain, eye redness, fever, myalgias, sore throat, shortness of breath or wheezing. The symptoms are aggravated by lying down. Treatments tried: ALBUTEROL, THERAFLU. The treatment provided no relief. Her past medical history is significant for asthma and bronchitis. Wheezing This is a new problem. The current episode started in the past 7 days. The problem occurs intermittently. The problem has been waxing and waning. Associated symptoms include coughing, headaches and sputum production. Pertinent negatives include no abdominal pain, chest pain, chills, ear pain, fever, sh ortness of breath or sore throat. The symptoms are aggravated by any activity. Treatments tried: ALBUTEROL. The treatment provided no relief. Her past medical history is significant for asthma. Review of Systems Constitution: Negative for chills, fever and malaise/fatigue. HENT: Positive for congestion and postnasal drip. Negative for ear pain, hoarse voice and sore throat. EAR FULLNESS - BILAT Eyes: Negative for discharge and redness. Cardiovascular: Negative for chest pain, dyspnea on exertion and leg swelling. Respiratory: Positive for cough and sputum production. Negative for shortness of breath and wheezing. Musculoskeletal: Negative for myalgias. Gastrointestinal: Negative for abdominal pain and nausea. Neurological: Positive for headaches. Objective: Physical Exam Constitutional: She is oriented [...] no frontal sinus tenderness. Mouth/Throat: Uvula is midline and mucous membranes are normal. No trismus in the jaw. Normal dentition. No uvula swelling. Posterior oropharyngeal erythema present. No oropharyngeal exudate or posterior oropharyngeal edema. Eyes: Conjunctivae and lids are normal. No scleral icterus. Sclera clear bilat Neck: Trachea normal, full passive range of motion without pain and phonation normal. Neck supple. Cardiovascular: Normal rate, regular rhythm, normal heart sounds, intact distal pulses and normal pulses. Pulmonary/Chest: Effort normal. No respiratory distress. She has no decreased breath sounds. She haswheezes. She has rhonchi. She has no rales. Diffuse rhonchi and expiratory wheezes that were harsh and tight sounding. Prior to breathing treatment. Following breathing treatment there are still rhonchi present that are more diffuse. Wheezing is dramatically improved though still a few expiratory wheezes are present. She feels more comfortable. And she coughed up clear to white sputum as she did the treatment. Abdominal: Soft. Normal appearance and bowel sounds are normal. She exhibits no distension. There isno tenderness. Obese in appearance Musculoskeletal: Normal range of motion. She exhibits no edema or deformity. Lymphadenopathy: Head (right side): No submental and no submandibular adenopathy present. Head (left side): No submental and no submandibular adenopathy present. Neurological: She is alert and oriented to person, place, and time. She exhibits normal muscle tone.Coordination normal. Skin: Skin is warm, dry and intact. She is not diaphoretic. No pallor. Psychiatric: She has a normal mood and affect. Her speech is normal and behavior is normal. Judgmentand thought content normal. Cognition and memory are normal. Nursing note and vitals reviewed. Assessment: 1. Bronchitis 2. Wheezing Plan: Bronchitis - betamethasone acetate-betamethasone sodium phosphate injection 9 mg; Inject 1.5 mLs (9 mg total) into the muscle one time. - cefTRIAXone injection 1 g; Inject 1 g into the muscle one time. - albuterol nebulizer solution 2.5 mg; Take 3 mLs (2.5 mg total) by nebulization one time. - albuterol 90 mcg/actuation inhaler; Inhale 2 puffs into the lungs every 6 (six) hours as needed for Wheezing or Shortness of Breath. Rescue Dispense: 1 Inhaler; Refill: 0 - inhalation spacing device; Use as directed for inhalation. Dispense: 1 Device; Refill: 0 - amoxicillin-clavulanate 875-125mg (AUGMENTIN) 875-125 mg per tablet; Take 1 tablet by mouth 2 (two) times daily. Dispense: 20 tablet; Refill: 0 Wheezing - betamethasone acetate-betamethasone sodium phosphate injection 9 mg; Inject 1.5 mLs (9 mg total) into the muscle one time. - cefTRIAXone injection 1 g; Inject 1 g into the muscle one time. - albuterol nebulizer solution 2.5 mg; Take 3 mLs (2.5 mg total) by nebulization one time. - albuterol 90 mcg/actuation inhaler; Inhale 2 puffs into the lungs every 6 (six) hours as needed for Wheezing or Shortness of Breath. Rescue Dispense: 1 Inhaler; Refill: 0 - inhalation spacing device; Use as directed for inhalation. Dispense: 1 Device; Refill: 0 - amoxicillin-clavulanate 875-125mg (AUGMENTIN) 875-125 mg per tablet; Take 1 tablet by mouth 2 (two) times daily. Dispense: 20 tablet; Refill: 0 Follow Up Comments Make sure that you follow up with your primary care doctor in the next 2-5 days if needed . Return to the Urgent Care if signs or symptoms change and certainly if you have worsening symptoms go to [facility] emergency department for further evaluation. D FRUIT WASHER documented in this encounter Plan of Treatment Not on filedocumented as of this encounter Goals Goal Patient Goal Associated Recent Patient-Stated? Author Type Problems Progress Blood Pressure Blood 197/101 Yes Myochsner, < 130/80 Pressure (02/21/2020 System Messag e 10:15 AM DRIED FRUIT WASHER) Take at least Blood No Cutura, one [...] as of this encounter Visit Diagnoses Diagnosis Bronchitis - Primary Bronchitis, not specified as acute or ch ronic Wheezing documented in this encounter Administered Medications Inactive Administered Medications - up to 3 most recent administrations Medication Order MAR Action Action Date Dose Rate Site albuterol nebulizer solution 2.5 Given 04/29/2017 12:05 PM DRIED FRUIT WASHER 2 .5 mg Oral mg 2.5 mg, Nebulization, Clinic/HOD 1 time, On Thu04/29/17 at 1215, For 1 dose betamethasone Given 04/29/2017 12:05 PM 9 mg Le ft Dorsalgluteal acetate-betamethasone sodium DRIED FRUIT WASHER phosphate injection 9 mg 9 mg, Intramuscular, Clinic/HOD 1 time, On Thu04/29/17 at 1215, For 1 dose cefTRIAXone injection 1 g Given 04/29/2017 12:07 PM DRIED FRUIT WASHER 1 g Righ t Dorsalgluteal 1 g, Intramuscular, Clinic/HOD 1 time, Indications: bronchitis, On Thu04/29/17 at 1215, For 1 dose documented in this encounter
--- OUTSIDE RECORDS SUMMARY | 2020-04-15 13:32 | XMS_ITS | Encounter Summary ---
:1975 Author Organization [facility] and It s Subsidiaries and Affiliates Address [address] [place] [address] Care Team Providers Name Role Phone No, Doctor Primary Care Provider Unavailable Reason for Visit Reason Comments Gynecologic Exam annual exam Encounter Details Date Type Department Care Team Description 04/10/2014 [facility] Visit [facility] [place] HOME ASSESSMENT NURSE Stefanie Chi Routine gynecological examin ation (Primary Dx); 120 Dacia Barton MD Other screening mammogram; [address] [facility] History of anemia; [place] [phone] [address] Uterine fibroid; [phone] [place], [place] Hypertension Mds Rn: [phone] Lydia Black [phone] Social History Tobacco Use Types Packs/Day Years [...] Sign Reading Time Taken Comments Blood Pressure 120/72 04/10/2014 10:30 AM LEGAL SERVICE SPECIALIST Pulse - - Temperature - - Respiratory Rate - - Oxygen Saturation - - Inhaled Oxygen Concentration - - Weight 122.5 kg (270 lb) 04/10/2014 10:30 AM LEGAL SERVICE SPECIALIST Height 167.6 cm (5' 6) 04/10/2014 10:30 AM LEGAL SERVICE SPECIALIST Body Mass Index 43.58 04/10/2014 10:30 AM LEGAL SERVICE SPECIALIST documented in this encounter Progress Notes Stefanie Chi MD - 04/10/2014 10:51 AM CST HISTORY OF PRESENT ILLNESS: Remedios Schofield is a 38 y.o. female, , Patient's last menstrual period was 03/16/2014., presents for a routine exam and has no complaints. Past Medical History Diagnosis Date ??? Hypertension ??? Atrial fibrillation 1982 ??? A-fib History reviewed. No pertinent past surgical history. MEDICATIONS AND ALLERGIES: Current outpatient prescriptions:aspirin 81 mg Tab, Take by mouth., Disp: , Rfl: ; ferrous sulfate 325 mg (65 mg iron) Tab tablet, Take 325 mg by mouth daily with breakfast., Disp: , Rfl: ; KLOR-CON M10 10 mEq tablet, , Disp: , Rfl: ; losartan-hydrochlorothiazide 100-12.5 mg (HYZAAR) 100-12.5 mg Tab, , Disp: , Rfl: ; losartan-hydrochlorothiazide 100-25 mg (HYZAAR) 100-25 mg per tablet, , Disp: , Rfl: penicillin v potassium (VEETID) 500 MG tablet, , Disp: , Rfl: ; sotalol (BETAPACE) 160 MG Tab, , Disp: , Rfl: ; clotrimazole-betamethasone 1-0.05% (LOTRISONE) cream, , Disp: , Rfl: ; hydrocodone-acetaminophen 5-325mg (NORCO) 5-325 mg per tablet, , Disp: , Rfl: ; hydrOXYzine (ATARAX) 25 MG tablet, , Disp: , Rfl: ; potassium chloride (KLOR-CON) 10 MEQ TbSR, , Disp: , Rfl: ; sotalol (BETAPACE) 120MG Tab, , Disp: , Rfl: No Known Allergies [...] Use: No ??? Drug Use: No ??? Sexual Activity: Partners: Male Control/ Protection: None Other Topics Concern ??? 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 Infection History: Denies STDs. Denies PID. Benign History: Denies uterine fibroids. Denies ovarian cysts. Denies endometriosis. Denies other conditions. Cancer History: Denies cervical cancer. Denies uterine cancer or hyperplasia. Denies ovarian cancer.Denies vulvar cancer or pre-cancer. Denies vaginal cancer or pre-cancer. Denies breast cancer. Denies colon cancer. Sexual Activity History: Denies currently being sexually active ROS: GENERAL: No weight changes. No swelling. [...] incontinence. No nocturia. No frequency. No dysuria. BP 120/72 Ht 5' 6 (1.676 m) Wt 122.471 kg (270 lb) BMI 43.60 kg/m2 LMP 03/16/2014 PE: APPEARANCE: Well nourished, well developed, in [...] without lesions, discharge or tenderness. Uterus is 18-20 week size, irregular, mobile and nontender. Adnexa without masses or tenderness. EXTREMITIES: No edema PROCEDURES: Pap 1. Routine gynecological examination 2. Other screening mammogram 3. History of anemia 4. Uterine fibroid 5. Hypertension PLAN: Orders Placed This Encounter ??? Mammo Digital Screening Bilat with CAD ??? US Pelvis Comp with Transvag NON-OB (xpd ??? CBC auto differential ??? T4, free ??? TSH ??? Cholesterol, total ??? Comprehensive metabolic panel ??? Hemoglobin A1c ??? Liquid-based pap smear, screening COUNSELING: The patient was counseled today on: -A.C.S. Pap and pelvic exam guidelines, recomendations for yearly mammogram, monthly self breast exams and to follow up with her PCP for other health maintenance. FOLLOW-UP with me for EMBX L SERVICE SPECIALIST documented in this encounter Plan of Treatment Not on filedocumented as of this encounter Goals Goal Patient Goal Associated Recent Patient-Stated? Author Type Problems Progress Blood Pressure Blood 197/101 Yes Myochsner, < 130/80 Pressure (02/21/2020 System Messag e 10:15 AM LEGAL SERVICE SPECIALIST) Take at least Blood No Cutura, one BP reading Pressure Precious per week at various times of the day Maintain a low Diet No Cutura, sodium diet Precious Note: [place] [employer] Association (AHA) guideli francisco recommend less [...] Associated Diagnosis Comme nts LIQUID-BASED PAP Routine 04/10/2014 10:57 AM Routine gynecolog ical SMEAR, SCREENING LEGAL SERVICE SPECIALIST examination documented in this encounter Results Mammo Digital Screening Bilat with CAD (05/22/2014 12:00 AM CDT) Specimen Impressions Performed At [facility] MAM[facility] There is no mammographic evidence of mal ignancy. Mammogram in 1 year is recommended. ACR BI-RADS Category 1: Negative ARPAN FREEMAN M.D. 05/22/2014 Narrative Performed At The present examination has been compared to prior rashawn ging studies [facility] MAMMO[facility] dated 04/26/2013 and 04/08/2010. BILATERAL MAMMOGRAM FINDINGS: There are scattered fibroglandular densi ties. No significant abnormalities are seen. These images ??were processed to produce digital image s analyzed for potential abnormalities. Procedure Note Interface, Rad Results In - 05/22/2014 1:40 PM CDT The present examination has been compared to prior imaging studies dated 04/26/2013 and 04/08/2010. BILATERAL MAMMOGRAM FINDINGS: There are scattered fibroglandular densi ties. No significant abnormalities are seen. These images were processed to produce digital images analyzed for potential abnormalities. IMPRESSION: There is no mammographic evidence of mal ignancy. Mammogram in 1 year is recommended. ACR BI-RADS Category 1: Negative ARPAN FREEMAN M.D. 05/22/2014 Performing Organization Address City/State/ZIP Code Phon e Number [facility] MAMMOGRAPHY US Pelvis Comp with Transvag NON-OB (xpd (04/26/2014 10:58 AM LEGAL SERVICE SPECIALIST) Specimen Impressions Performed At [facility] Marked interval enlargement of the uterus with interva l growth of the uterine fibroids. Incomplete visualization of the endometrium secondary to obscuration by the uterine fibroids. Electronically signed by resident: IDALIA JOHNSON Date: 04/26/14 Time: 11:17 As the supervising and teaching physician, I personall y reviewed the images and resident's interpretation and I agree w ith the findings. Electronically signed by: Dr. Kev bunch MD Date: 04/26/14 Time: 11:31 Narrative Performed At Comparison: 04/08/2010 [facility] Findings: Transabdominal and transvaginal pelvic ultra sound performed. ??The uterus demonstrates marked enlargemen t compared to the prior examination measuring 18.6 cm in length, previously 9.1 cm, and 8.3 x 14.6 cm in transverse dimensions, previously 5.4 x 8.9 cm. ??There are approximately 4 uterine fibr oids that are again identified and demonstrate interval enlargem ent. ??The largest uterine fibroid is located at the fundus and m easures 7.0 x 5.9 x 6.1 cm, previously 4.4 x 4.5 x 3.8 cm. the endometrium is incompletely visualized secondary to ob scuration by the uterine fibroids. ??The visualized portion of t he endometrium measures 7 mm in thickness. ??The left ova ry is not seen. ??The right ovary measures 2.8 x 2.7 x 2 . cm. ? ?Arterial and venous flow demonstrated are present in the right ovar y. ??No free fluid. Procedure Note Interface, Rad Results In - 04/26/2014 1 1:31 AM LEGAL SERVICE SPECIALIST Comparison: 04/08/2010 Findings: Transabdominal and transvagina l pelvic ultrasound performed. The uterus demonstrates marked enlargement compared to the prior examination measuring 18.6 cm in length, previously 9.1 cm, and 8.3 x 14.6 cm in transverse dimensions, previously 5.4 x 8.9 cm. There are approximately 4 uterine fibroids that are again identified and demonstrate interval enlargement. The largest uterine fibroid is located at the fundus and measures 7.0 x 5.9 x 6.1 cm, previously 4.4 x 4.5 x 3.8 cm. the endometrium is incompletely visualized s econdary to obscuration by the uterine fibroids. The visualized portion of the endometrium measures 7 mm in thickness. The left ovary is not seen. The right ovary measures 2.8 x 2.7 x 2 . cm. Arterial and venous flow demonstrated are present in the right ovary. No free fluid. IMPRESSION: Marked interval enlargement of the uteru s with interval growth of the uterine fibroids. Incomplete visualization of the endometr ium secondary to obscuration by the uterine fibroids. Electronically signed by resident: IDALIA JOHNSON Date: 04/26/14 Time:11:17 As the supervising and teaching physicia n, I personally reviewed the images and resident's interpretation and I agree with the findings. Electronically signed by:Dr. Kev fallon MD Date: 04/26/14 Time:11:31 Performing Organization Address City/State/ZIP Code Phon e Number [facility] TALK [facility]CHN[facility] [employer] n/a Hemoglobin A1c (04/26/2014 9:18 AM LEGAL SERVICE SPECIALIST) Hemoglobin A1C 6.3 (H) 4.5 - 6.2 % [facility] Estimated Avg 134 (H) 68 - 131 [facility] Glucose Comment: mg/dL [facility] The current [place] Dietetic Association (ADA) guidel [facility] for A1C% and estimated average glucose in diabetic pat ients are <7% and <150 mg/dL respectively. Specimen Blood - Blood Performing Organization Address City/[facility]/ZIP Code Phon e Number [facility] [address] [place] [address] [facility] [address] [place] [address] [place] Comprehensive metabolic panel (04/26/2014 9:18 AM LEGAL SERVICE SPECIALIST) Sodium 141 136 - 145 [facility] mmol/L [facility] Potassium 4.2 3.5 - 5.1 [facility] mmol/L [facility] Chloride 105 95 - 110 [facility] mmol/L [facility] CO2 28 23 - 29 [facility] mmol/L [facility] Glucose 123 (H) 70 - 110 [facility] mg/dL [facility] BUN 9 6 - 20 mg/dL [facility] Creatinine 0.9 0.5 - 1.4 [facility] mg/dL [facility] Calcium 9.8 8.7 - 10.5 [facility] mg/dL [facility] Total Protein 7.7 6.0 - 8.4 [facility] g/dL [facility] Albumin 3.7 3.5 - 5.2 [facility] g/dL [facility] Total Bilirubin 0.4 0.1 - 1.0 [facility] Comment: mg/dL [facility] For infants and newborns, interpretation of resu lts should be based [facility] on gestational age, weight and in agreement with clini stefania observations. Premature Infant recommended reference ranges: Up to 24 hours.............<8.0 mg/dL Up to 48 hours............<12.0 mg/dL 3-5 days..................<15.0 mg/dL 6-29 days.................<15.0 mg/dL Alkaline 65 55 - 135 U/L [facility] Phosphatase [facility] AST 13 10 - 40 U/L [facility] ALT 10 10 - 44 U/L [facility] Anion Gap 8 8 - 16 [facility] mmol/L [facility] eGFR if >60 >60 [facility] Fijian mL/min/1.73 [place] - [address] eGFR if non >60 >60 [facility] Comment: mL/min/1.73 [place] - Calculation used to obtain the estimated glomeru lar filtration [address] rate (eGFR) is the CKD-EPI equation. Since race is unk nown in our information system, the eGFR values for -Fijian and Hqh-Lwyinrx-Ervitaoq patients are given for each creatinine result. Specimen Blood - Blood Performing Organization Address City/[facility] Phon e Number [facility] - [address] [place] [id number] [facility] - [address] [place] [address] [facility] Cholesterol, total (04/26/2014 9:18 AM LEGAL SERVICE SPECIALIST) Cholesterol 187 120 - 199 [facility] Comment: mg/dL [facility] The National Cholesterol Education Program (NCEP) has set the [place] following guidelines (reference ranges) for Cholestero l: Optimal.....................<200 mg/dL Borderline High.............200-239 mg/dL High........................> or = 240 mg/dL Specimen Blood - Blood Performing Organization Address City/State/ZIP Code Phon e Number [facility] - [address] [place] [address] [facility] - [place], [place] [id number] [place] [address] TSH (04/26/2014 9:18 AM LEGAL SERVICE SPECIALIST) Pathologist Sig nature TSH 2.150 0.400 - 4.000 uIU/mL [facility] Specimen Blood - Blood Performing Organization Address City/State/ZIP Code Phon e Number [facility] - [address] [place] [address] [facility] - [address] [place], [place] [id number] [place] [address] T4, free (04/26/2014 9:18 AM LEGAL SERVICE SPECIALIST) Pathologist Sig nature Free T4 0.98 0.71 - 1.51 ng/dL [facility] Specimen Blood - Blood Performing Organization Address City/State/ZIP Code Phon e Number [facility] - [place], [place] [id number] [place] [address] - [place], [address] CBC auto differential (04/26/2014 9:18 AM LEGAL SERVICE SPECIALIST) Pathologist Sig nature WBC 8.88 3.90 - 12.70 [facility] K/uL [facility] RBC 4.83 4.00 - 5.40 [facility] M/uL [facility] Hemoglobin 12.4 12.0 - 16.0 [facility] g/dL [facility] Hematocrit 40.2 37.0 - 48.5 % [facility] MCV 83 82 - 98 fL [facility] MCH 25.7 (L) 27.0 - 31.0 pg [facility] MCHC 30.8 (L) 32.0 - 36.0 % [facility] RDW 14.1 11.5 - 14.5 % [facility] Platelets 322 150 - 350 K/uL [facility] MPV 10.1 9.2 - 12.9 fL [facility] Gran # (ANC) 5.3 1.8 - 7.7 K/uL [facility] Lymph # 2.6 1.0 - 4.8 K/uL [facility] [place] # 0.7 0.3 - 1.0 K/uL [facility] Eos # 0.2 0.0 - 0.5 K/uL [facility] Baso # 0.01 0.00 - 0.20 [facility] K/[facility] Gran % 60.2 38.0 - 73.0 % [facility] Lymph % 28.8 18.0 - 48.0 % [facility] [place] % 8.2 4.0 - 15.0 % [facility] Eosinophil % 2.7 0.0 - 8.0 % [facility] Basophil % 0.1 0.0 - 1.9 % [facility] Differential Method Automated [facility] Specimen Blood - Blood Performing Organization Address City/[facility] Phon e Number [facility] - [address] [place] [address] [facility] - [address] [place] [address] [facility] Liquid-based pap smear, screening (04/10/2014 10:57 AM LEGAL SERVICE SPECIALIST) Specimen Genital - Cervix, screening Performing Organization Address City/[facility] Phon e Number ROGELIO PROGENY documented in this encounter Visit Diagnoses Diagnosis Routine gynecological examination - Prim ally Other screening mammogram History of anemia Personal history of diseases of blood an d blood-forming organs Uterine fibroid Leiomyoma of uterus, unspecified Hypertension Unspecified essential hypertension documented in this encounter
--- OUTSIDE RECORDS SUMMARY | 2020-04-15 13:32 | XMS_ITS | Encounter Summary ---
:1975 Author Organization [facility] and [facility] [employer] [facility]sidi[facility] and Affiliates Address [address] [place] [address] Care Team Providers Name Role Phone Jyoti Hughes MD Primary Care Provider Reason for Visit Reason Comments Leg Pain pt c/o LLE pain x 2 weeks, i ncluding calf pain and groin pain. Pt states today she began having LLE t ingling. Pt denies weakness. Pt denies LUE weakness or numbness, slurre d speech, or confusion. Pt denies back pain. Pt denies urinary or bowel i ncontinence. Pt ambulatory to triage Encounter Details Date Type Department Care Team Description 02/04/2017 Emergency [facility] Andrzej Guzman ca of left side (Primary Dx); Center-Denise Badillo MD Pain of left calf; [address] [facility] [place] [id number] [address] [facility] [phone] [place] [address] [phone] Social History Tobacco Use Types Packs/Day Years [...] 1 to 4 times per year 10/08 catholic services? Do you belong to any clubs or No 10/30/2018 organizations such as restorationism groups, unions, fraAstro or athletic groups, or school groups? How [...] Sign Reading Time Taken Comments Blood Pressure 158/76 02/04/2017 3:11 PM ENAMEL APPLIER Pulse 73 02/04/2017 3:11 PM ENAMEL APPLIER Temperature 35.9 ??C (96.6 ??F) 02/04/2017 10:17 AM ENAMEL APPLIER Respiratory Rate 18 02/04/2017 10:17 AM ENAMEL APPLIER Oxygen Saturation 100% 02/04/2017 3:11 PM ENAMEL APPLIER Inhaled Oxygen Concentration - - Weight 121.6 kg (268 lb) 02/04/2017 10:17 AM ENAMEL APPLIER Height 167.6 cm (5' 6) 02/04/2017 10:17 AM ENAMEL APPLIER Body Mass Index 43.26 02/04/2017 10:17 AM ENAMEL APPLIER documented in this encounter Discharge Instructions InstructionsAndrzej Guzman MD - 02/04/2017Call your primary doctor to schedule a follow up appointment within one week Return to ED immediately if symptoms worsen AttachmentsThe following attachments cannot be sent through Care Everywhere. Lumbar Radiculopathy, Understanding (Tajik)documented in this encounter Medications at Time of Discharge Medication Sig Dispensed Refills Start Date End Date albuterol 90 mcg/actuation Inhale 1-2 puffs 1 Inhaler 0 08/04/2017 inhaler into the lungs every 6 (six) hours as needed for Wheezing. Rescue methocarbamol (ROBAXIN) Take 2 tablets 30 tablet 0 02/05/20 17 02/09/2017 750 MG Tab (1,500 mg total) by mouth 3 (three) times daily. aspirin (ECOTRIN) 81 MG EC Take 81 mg by mouth 0 01/11/2019 tablet once daily. diazePAM (VALIUM) 5 MG Take 1 tablet (5 mg 15 tablet 0 11/0803/28/2018 tablet total) by mouth every 8 (eight) hours. KLOR-CON M10 10 mEq tablet 0 4 03/28/2018 losartan (COZAAR) 100 MG Take 100 mg by 0 03/28/2018 tablet mouth once daily. magnesium 200 mg Tab Take 400 mg by 0 03/28/2018 mouth 2 (two) times daily. MAGNESIUM CHLORIDE ORAL Take by mouth. 0 03/28/2018 potassium chloride 0 12/08/20122018 (KLOR-CON) 10 MEQ TbSR potassium chloride Take 20 mEq by 0 (MICRO-K) 10 MEQ CpSR mouth 2 (two) times daily. potassium chloride SA 0 01/10/2014 (KLOR-CON M10) 10 MEQ tablet sotalol (BETAPACE) 120 MG 0 12/08/2012 03/28/2018 Tab sotalol (BETAPACE) 160 MG Take 80 mg by mouth 0 03/28/2018 Tab 2 (two) times daily. documented as of this encounter ED Notes Andrzej Guzman MD - 02/04/2017 4:01 PM CST Encounter Date: 02/04/2017 History Chief Complaint Patient presents with ??? Leg Pain pt c/o LLE pain x 2 weeks, including calf pain and groin pain. Pt states today she began having LLE tingling. Pt denies weakness. Pt denies LUE weakness or numbness, slurred speech, or confusion.Pt denies back pain. Pt denies urinary or bowel incontinence. Pt ambulatory to triage 41 y/o F with pmhx of low back pain and sciatica involving her LLE, atrial fibrillation and HTN presents to ED for left leg pain. Pt is having difficulty defining her symptoms. She states that for 2-3 weeks her LLE feels different. Like it hurts but it is numb and it sometimes goes out. She had difficulty getting into and out of her husbands F150 due to low back and LLE pain. She states that her LLE feels very swollen and heavy. + Left calf pain. No hx of PE/DVT. Pt reports a hx of atrial fib for which she takes asa. She was once on anti-coagulants and was taken off by her pcp. She states that she is not in atrial fib at this time. She has had no cp, sob, palpitations, numbness. She does state that her LLE has felt like it goes out from time to time over the past 2-3 weeks when sheexperiences the pain. LLE pain is exacerbated by weightbearing and feels shooting in nature. Review of patient's allergies indicates: No Known Allergies Past Medical History: Diagnosis Date ??? A-fib ??? Atrial fibrillation 1983 ??? Atrial fibrillation ??? Hypertension Past Surgical [...] Alcohol use No Review of Systems Constitutional: Negative for chills and fever. Eyes: Negative for visual disturbance. Respiratory: Negative for cough, chest tightness and shortness of breath. Cardiovascular: Positive for leg swelling (LLE swelling). Negative for chest pain and palpitations. Gastrointestinal: Negative for nausea and vomiting. Endocrine: Negative for polydipsia and polyphagia. Genitourinary: Negative for difficulty urinating and dysuria. Musculoskeletal: Positive for arthralgias and back pain. Negative for neck pain and neck stiffness. Skin: Negative for pallor and rash. Neurological: Negative for dizziness, tremors, seizures, syncope, facial asymmetry, speech difficulty, weakness, light-headedness, numbness and headaches. Psychiatric/Behavioral: Negative for confusion. All other systems reviewed and are negative. Physical Exam Initial Vitals [02/04/17 1017] BP Pulse Resp Temp SpO2 (!) 179/84 88 18 96.6 ??F (35.9 ??C) 100 % MAP 115.67 Physical Exam Nursing note and vitals reviewed. Constitutional: She appears well-developed and well-nourished. She is not diaphoretic. No distress. Obese 41 y/o F, no distress, talking with , stable vitals, HTN HENT: Head: Normocephalic and atraumatic. Mouth/Throat: Oropharynx is clear and moist. Eyes: Conjunctivae and EOM are normal. Pupils are equal, round, and reactive to light. No scleral icterus. Neck: Normal range of [...] Musculoskeletal: Normal range of motion. She exhibits tenderness. She exhibits no edema. Lumbar back: She exhibits tenderness and pain. She exhibits normal range of motion, no bony tenderness, no swelling, no edema, no deformity, no laceration, no spasm and normal pulse. Back: No edema of BLE noted Lymphadenopathy: She has no cervical adenopathy. Neurological: She is alert and oriented to person, place, and time. No cranial nerve deficit or sensory deficit. Reflex Scores: Patellar reflexes are 2+ on the right side and 2+ on the left side. Achilles reflexes are 2+ on the right side and 2+ on the left side. Motor: RUE, RLE, LUE 5/5 LLE 4/5 Steady gait Skin: Skin is warm and dry. No rash noted. No erythema. Psychiatric: She has a normal mood and affect. Her behavior is normal. Judgment and thought content normal. ED Course Procedures Labs Reviewed CBC W/ AUTO DIFFERENTIAL - Abnormal; Notable for the following: Result Value MCH 25.8 (*) MCHC 31.3 (*) All other components within normal limits COMPREHENSIVE METABOLIC PANEL - Abnormal; Notable for the following: Glucose 129 (*) All other components within normal limits LIPID PANEL - Abnormal; Notable for the following: Cholesterol 206 (*) Triglycerides 158 (*) All other components within normal limits POCT GLUCOSE - Abnormal; Notable for the following: POCT Glucose 136 (*) All other components within normal limits PROTIME-INR TSH B-TYPE NATRIURETIC PEPTIDE Imaging Results MRI Brain Without Contrast (Final result) Result time 02/04/17 14:55:56 Final result by Agus Zavaleta MD (02/04/17 14:55:56) Impression: No acute intracranial abnormality identified. Electronically signed by: AGUS ZAVALETA MD Date: 02/04/17 Time: 14:55 Narrative: Technique: Multiplanar multi-sequence MRI of the brain pre-contrast. Findings: The ventricular system is within normal limits of size for age and shows no distortion by mass-effect. There is no midline shift, hydrocephalus, or sulcal effacement. There are no intra-axial or extra axial mass lesions. There is no evidence of acute intracranial hemorrhage. There are noextra-axial fluid collections. There is no evidence of a space-occupying mass. the globes, orbits, pituitary, cranial cervical junction and visualized paranasal sinuses are unremarkable. There is a partially empty sella. X-Ray Chest AP Portable (Final result) Result time 02/04/17 13:11:07 Final result by Philip Francois MD (02/04/17 13:11:07) Impression: No acute cardiopulmonary process. Electronically signed by: PHILIP FRANCOIS MD Date: 02/04/17 Time: 13:11 Narrative: Chest x-ray, 1 view Comparison: 11/27/16 Findings: There is no consolidation, effusion, or pneumothorax. Cardiomediastinal silhouette is unremarkable. Mild scoliosis noted. US Lower Extremity Veins Left (Final result) Result time 02/04/17 12:08:32 Final result by Agus Zavaleta MD (02/04/17 12:08:32) Impression: No evidence of deep vein thrombosisin the left lower extremity. Electronically signed by: AGUS ZAVALETA MD Date: 02/04/17 Time: 12:08 Narrative: Comparison: None. Findings: There is no evidence of venous thrombosis in the bilateral common femoral, left femoral, greater saphenous, popliteal, posterior tibial, anterior tibial, and peroneal veins. CT Head Without Contrast (Final result) Result time 02/04/17 11:17:10 Final result by Melisas Martini MD (02/04/17 11:17:10) Impression: No evidence acute intracranial abnormality. Electronically signed by: MELISSA MARTINI MD Date: 02/04/17 Time: 11:17 Narrative: CT head without contrast History: Stroke Comparison: None Technique: Contiguous axial images were acquired from vertex to skull base without contrast. Findings: There is no evidence acute intracranial abnormality. Specifically there is no evidence acute infarct, contusion, extra-axial fluid collection or midline shift. The ventricles are normal in size and configuration. The calvarium is intact. The paranasal sinuses and mastoid air cells are clear. EKG Readings: (Independently Interpreted) Initial Reading: No STEMI. Previous EKG: Compared with most recent EKG Previous EKG Date: 11/27/16. Rhythm: Normal Sinus Rhythm. Heart Rate: 76. Ectopy: No Ectopy. Clinical Impression: Normal Sinus Rhythm ECG Results ECG 12 lead (Final result) Result time 02/04/17 13:08:27 Final result by [facility] (02/04/17 13:08:27) Narrative: Test Reason : r07.9 Blood Pressure :158/76 mmHG Vent. Rate : 076 BPM Atrial Rate : 076 BPM P-R Int : 152 ms QRS Dur : 080 ms QT Int : 390 ms P-R-T Axes : 041 016 042 degrees QTc Int : 438 ms Normal sinus rhythm Possible Left atrial enlargement Nonspecific T wave abnormality Abnormal ECG When compared with ECG of 27-NOV-2016 09:21, RSR' pattern in V1 is no longer Present Confirmed by Eunice Leiva MD ([id number]) on 02/04/2017 1:08:14 PM Referred By: ANDRZEJ GUZMAN Confirmed By:Euncie Leiva MD X-Rays: Independently Interpreted Readings: Chest X-Ray: Normal heart size. No infiltrates. No acute abnormalities. Medical Decision Making: Initial Assessment: 41 y/o F with pmhx of low back pain and sciatica involving her LLE, atrial fibrillation and HTN presents to ED for left leg pain. Pt is having difficulty defining her symptoms. She states that for 2-3 weeks her LLE feels different. Like it hurts but it is numb and it sometimes goes out. She had difficulty getting into and out of her husbands [employer]150 due to low back and LLE pain. She states that her LLE feels very swollen and heavy. + Left calf pain. No hx of PE/DVT. Pt reports a hx of atrial fib for which she takes asa. She was once on anti-coagulants and was taken off by her pcp. She states that she is not in atrial fib at this time. She has had no cp, sob, palpitations, numbness. She does state that her LLE has felt like it goes out from time to time over the past 2-3 weeks when sheexperiences the pain. LLE pain is exacerbated by weightbearing and feels shooting in nature. Differential Diagnosis: DDX: CVA, TIA, low back pain with sciatica, DVT, muscle spasm Independently Interpreted Test(s): I have ordered and independently interpreted X-rays - see prior notes. I have ordered and independently interpreted EKG Reading(s) - see prior notes Clinical Tests: Lab Tests: Ordered and Reviewed The following lab test(s) were unremarkable: CBC and CMP Radiological Study: Ordered and Reviewed Medical Tests: Ordered and Reviewed ED Management: Pt presents with poorly defined symptoms of low back pain and LLE pain for 2-3 weeks. On exam, kartikd slight weakness of the LLE. Due to patients risk factors for CVA (HTN, hx of atrial fib on no anti-coagulation, and HLD) I decided to work this patient up for a CVA and DVT. Pt work up was neg. Upon re-evaluation, pt strength is 5/5 and she is ambulatory without difficulty. Pt symptoms most likely due to low back pain and sciatica. She will be d/c home to f/u with pcp. Pt counseled on their diagnosis and the importance of following up with PCP. Pt also cautioned on when to return to ED. Pt verbalizes understanding of discharge plan and will return to ED immediatelyif symptoms worsen ED Course Clinical Impression: The primary encounter diagnosis was Sciatica of left side. Diagnoses of Pain of left calf and Weakness were also pertinent to this visit. Disposition: Disposition: Discharged Condition: Stable Andrzej Guzman MD 02/07/17 0710 EL APPLIER Urszula Gaona - 02/04/2017 11:25 AM CSTBed rails are up and call light is within patient reach. Urszula Lockett - 02/04/2017 11:25 AM CSTFamily at bedside. Urszula Lockett - 02/04/2017 11:25 AM CSTPatient placed on continuous case monitor, automatic blood pressure cuff and continuous pulse oximeter. Magalie Montgomery RN - 02/04/2017 11:00 AM CSTPt sitting up in bed, AAO x's 3, at bedside. Pt stated that she came to the ER with c/o abnormal leg sensation that began around 0900 today, but has been having pain for a couple of weeks. Pt reports a HOANG to the front and back of her head. Denies CP, N/V, dizziness or blurred vision. APPEARANCE: Alert, oriented and in no acute distress. CARDIAC: Normal rate and rhythm, no murmur heard. PERIPHERAL VASCULAR: peripheral pulses present. Normal cap refill. No edema. Warm to touch. RESPIRATORY:Normal rate and effort, breath sounds clear bilaterally throughout chest. Respirations are equal and unlabored no obvious signs of distress. GASTRO: soft, bowel sounds normal, no tenderness, no abdominal distention. MUSC: Full ROM. No bony tenderness or soft tissue tenderness. No obvious deformity. SKIN: Skin is warm and dry, normal skin turgor, mucous membranes moist. NEURO: 5/5 strength major flexors/extensors bilaterally. Sensory intact to light touch bilaterally. [place] coma scale: eyes open spontaneously-4, oriented & converses-5, obeys commands-6. No neurological abnormalities. MENTAL STATUS: awake, alert and aware of environment. EYE: PERRL, both eyes: pupils brisk and reactive to light. Normal size. ENT: EARS: no obvious drainage. NOSE: no active bleeding. Urszula Lockett - 02/04/2017 10:48 AM CSTUPT NEG documented in this encounter Plan of Treatment Not on filedocumented as of this encounter Goals Goal Patient Goal Associated Recent Patient-Stated? Author Type Problems Progress Blood Pressure Blood 197/101 Yes Myochsner, < 130/80 Pressure (02/21/2020 System Messag e 10:15 AM ENAMEL APPLIER) Take at least Blood No Cutura, one BP reading Pressure Precious per week at various times of the day Maintain a low Diet No Cutura, sodium diet Precious Note: [employer] (AHA) guideli francisco recommend less [...] Procedure Name Priority Date/Time Associated Comments Diagnosis MRI BRAIN WITHOUT STAT 02/04/2017 2:49 Weakness Result s for this CONTRAST PM ENAMEL APPLIER procedure are i n the results section. XR CHEST AP PORTABLE STAT 02/04/2017 12:30 Res ults for this PM ENAMEL APPLIER procedure are i n the results section. US LOWER EXTREMITY STAT 02/04/2017 12:02 Pain of left calf Results for this VEINS LEFT PM ENAMEL APPLIER procedure are i n the results section. EKG 12-LEAD STAT 02/04/2017 11:22 Results for this AM ENAMEL APPLIER procedure are i n the results section. POCT URINE Routine 02/04/2017 11:14 Res ults for this AM ENAMEL APPLIER procedure are i n the results section. CT HEAD WITHOUT STAT 02/04/2017 11:11 Results for this CONTRAST AM ENAMEL APPLIER procedure are i n the results section. CBC W/ AUTO STAT 02/04/2017 11:08 Results for this DIFFERENTIAL AM ENAMEL APPLIER procedure are i n the results section. PROTIME-INR STAT 02/04/2017 11:08 Results for this AM ENAMEL APPLIER procedure are i n the results section. TSH STAT 02/04/2017 11:08 Results for this AM ENAMEL APPLIER procedure are i n the results section. B-TYPE NATRIURETIC STAT 02/04/2017 11:08 Resul ts for this PEPTIDE AM ENAMEL APPLIER procedure are i n the results section. LIPID PANEL STAT 02/04/2017 11:08 Results for this AM ENAMEL APPLIER procedure are i n the results section. COMPREHENSIVE STAT 02/04/2017 11:08 Results fo r this METABOLIC PANEL AM ENAMEL APPLIER procedure ar e in the results section. POCT GLUCOSE Routine 02/04/2017 11:03 Results for this AM ENAMEL APPLIER procedure are i n the results section. EKG 12-LEAD 02/04/2017 12:00 AM ENAMEL APPLIER documented in this encounter Results MRI Brain Without Contrast (02/04/2017 2:49 PM ENAMEL APPLIER) Specimen Impressions Performed At No acute intracranial abnormality ident ified. [employer] Electronically signed by: AGUS YOON MD Date: 02/04/17 Time: 14:55 Narrative Performed At Technique: Multiplanar multi-sequence MRI of the brain [employer] pre-contrast. Findings: The ventricular system is within normal limi ts of size for age and shows no distortion by mass-effect. ??Ther e is no midline shift, hydrocephalus, or sulcal effacement. ?? There are no intra-axial or extra axial mass lesions. ??There is no evidence of acute intracranial hemorrhage. ??There are no extra-axial fluid collections. ??There is no evidence of a space-occupying mass. the globes, orbits, pituitary, c ranial cervical junction and visualized paranasal sinuses are unremarkable. ??There is a partially empty sella. Procedure Note Interface, Rad Results In - 02/04/2017 2:56 PM ENAMEL APPLIER Technique: Multiplanar multi-sequence MRI of the brain pre-contrast. Findings: The ventricular system is with in normal limits of size for age and shows no distortion by mass-effect. There is no midline shift, hydrocephalus, or sulcal effacement. There are no intra-axial or extra axial mass lesions. There is no evidenc e of acute intracranial hemorrhage. There are no extra-axial fluid collections. There is no evidence of a space- occupying mass. the globes, orbits, pituitary, cranial cervical junction and visualized paranas al sinuses are unremarkable. There is a partially empty sella. IMPRESSION: No acute intracranial abnormality ident ified. Electronically signed by:AGUS ASIF MD Date: 02/04/17 Time:14:55 Performing Organization Address City/[facility] Code Phon e Number [employer] n/a X-Ray Chest AP Portable (02/04/2017 12:30 PM ENAMEL APPLIER) Specimen Impressions Performed At No acute cardiopulmonary process. [employer] Electronically signed by: PHILIP FRANCOIS MD Date: 02/04/17 Time: 13:11 Narrative Performed At Chest x-ray, 1 view [employer] Comparison: 11/27/16 Findings: ??There is no consolidation, effusion, or pneumothorax. ??Cardiomediastinal silhouette is unrema rkable. ??Mild scoliosis noted. Procedure Note Interface, Rad Results In - 02/04/2017 1:11 PM ENAMEL APPLIER Chest x-ray, 1 view Comparison: 11/27/16 Findings: There is no consolidation, ef fusion, or pneumothorax. Cardiomediastinal silhouette is unremarkable. Mild scoliosis noted. IMPRESSION: No acute cardiopulmonary process. Electronically signed by:PHILIP Camargo Date: 02/04/17 Time:13:11 Performing Organization Address [facility] Phon e Number [employer] n/a US Lower Extremity Veins Left (02/04/2017 12:02 PM ENAMEL APPLIER) Specimen Impressions Performed At No evidence of deep vein thrombosisin t he left lower extremity. [employer] [employer] Electronically signed by: AGUS YOON MD Date: 02/04/17 Time: 12:08 Narrative Performed At Comparison: None. [facility] [employer] Findings: There is no evidence of venous thrombosis in the bilateral common femoral, left femoral, greater saphen ous, popliteal, posterior tibial, anterior tibial, and neo bret veins. Procedure Note Interface, Rad Results In - 02/04/2017 1 2:08 PM ENAMEL APPLIER Comparison: None. Findings: There is no evidence of venous thrombosis in the bilateral common femoral, left femoral, greater saphenous, popliteal, posterior tibial, anterior tibial, and peroneal veins. IMPRESSION: No evidence of deep vein thrombosisin t he left lower extremity. Electronically signed by:AGUS ASIF MD Date: 02/04/17 Time:12:08 Performing Organization Address [facility] Phon e Number [employer] n/a ECG 12 lead (02/04/2017 11:22 AM ENAMEL APPLIER) Specimen Narrative Performed At Test Reason : r07.9 ROGELIO ULTRA Testing Blood Pressure : / mmHG Vent. Rate : 076 BPM ? Atrial Rate : 076 BPM ?? P-R Int : 152 ms ?QRS D ur : 080 ms ?QT Int : 390 ms ? P-R-T Axe s : 041 016 042 degrees ?? QTc Int : 438 ms Normal sinus rhythm Possible Left atrial enlargement Nonspecific T wave abnormality Abnormal ECG When compared with ECG of 27-NOV-2016 09 :21, RSR' pattern in V1 is no longer Present Confirmed by Eunice Leiva MD ([id number]) on 02/04/2017 1:08:14 PM Referred By: ANDRZEJ GUZMAN ? Confirme d By:Eunice Leiva MD Performing Organization Address [facility]/ZIP Code Phon e Number [facility]ELIO GE MUSE ROGELIO GE MUSE N/A POCT urine (02/04/2017 11:14 AM ENAMEL APPLIER) Pathologist Sig nature POC Preg Test, Ur Negative Negative [employer] Equipment [employer]ic Acceptable Yes Specimen CT Head Without Contrast (02/04/2017 11:11 AM ENAMEL APPLIER) Specimen Impressions Performed At No evidence acute intracranial abnormal ity. [employer] Electronically signed by: MELISSA Maria MD Date: 02/04/17 Time: 11:[address] head without contrast [employer] History: Stroke Comparison: None Technique: Contiguous axial images were acquired from vertex to skull base without contrast. Findings: There is no evidence acute intracranial abno rmality. ??Specifically there is no evidence acute infarct, con tusion, extra-axial fluid collection or midline shift. ??The v entricles are normal in size and configuration. ??The calvarium is intact. ??The paranasal sinuses and mastoid air cells are vicki r. Procedure Note Interface, Rad Results In - 02/04/2017 1 1:[address] head without contrast History: Stroke Comparison: None Technique: Contiguous axial images were acquired from vertex to skull base without contrast. Findings: There is no evidence acute int racranial abnormality. Specifically there is no evidence acute infarct, contusion, extra-axial fluid collection or midline shift. The ventricles are normal in size and configuration. The calvarium is intact. The paranasal sinuses and mastoid air cells are clear. IMPRESSION: No evidence acute intracranial abnormal ity. Electronically signed by:MELISSA MARTINI MD Date: 02/04/17 Time:11:17 Performing Organization Address City/State/ZIP Code Phon e Number [employer] [employer] n/a B-Type natriuretic peptide (02/04/2017 11:08 AM ENAMEL APPLIER) Pathologist Sig nature BNP <10Comment: Values of 0 - 99 pg/mL [facility] less than 100 pg/ml [facility] are consistent with non-CHF populations. Specimen Blood - Blood Performing Organization Address City/State/ZIP Code Phon e Number [facility] C[facility] - [address] [address] DENISE LDL - Lipid Panel (02/04/2017 11:08 AM ENAMEL APPLIER) Cholesterol 206 (H) 120 - 199 [facility] Comment: mg/dL [facility] The National Cholesterol Education Program (NCEP) has set the following guidelines (reference ranges) for Cholestero l: Optimal.....................<200 mg/dL Borderline High.............200-239 mg/dL High........................> or = 240 mg/dL Triglycerides 158 (H) 30 - 150 [facility] Comment: mg/dL [facility] The National Cholesterol Education Program (NCEP) has set the following guidelines (reference values) for triglyceri madi: Normal......................<150 mg/dL Borderline High.............150-199 mg/dL High........................200-499 mg/dL HDL 49 40 - 75 [facility] Comment: mg/dL [facility] The National Cholesterol Education Program (NCEP) has set the following guidelines (reference values) for HDL Choles terol: Low...............<40 mg/dL Optimal...........>60 mg/dL LDL Cholesterol 125.4 63.0 - 159.0 [facility] Comment: mg/dL [facility] The National Cholesterol Education Program (NCEP) has set the following guidelines (reference values) for LDL Choles terol: Optimal.......................<130 mg/dL Borderline High...............130-159 mg/dL High..........................160-189 mg/dL Very High.....................>190 mg/dL HDL/Cholesterol Ratio 23.8 20.0 - 50.0 [facility] % [facility] Total Cholesterol/HDL 4.2 2.0 - 5.0 [facility] Ratio [facility] Non-HDL Cholesterol 157 mg/dL [facility] Comment: [facility] Risk category and Non-HDL cholesterol goals: Coronary heart disease (CHD)or equivalent (10-year ris k of CHD >20%): Non-HDL cholesterol goal ? <130 mg/dL Two or more CHD risk factors and 10-year risk of CHD < = 20%: Non-HDL cholesterol goal ? <160 mg/dL 0 to 1 CHD risk factor: Non-HDL cholesterol goal ? <190 mg/dL Specimen Blood - Blood Performing Organization Address [facility] Phon e Number [facility] [address] [place] [address] TYLER TSH (02/04/2017 11:08 AM ENAMEL APPLIER) Pathologist Sig nature TSH 1.543 0.400 - 4.000 uIU/mL [facility] Specimen Blood - Blood Performing Organization Address [facility] Phon e Number [facility] [address] [place] [address] TYLER Protime-INR (02/04/2017 11:08 AM ENAMEL APPLIER) Prothrombin Time 10.0 9.0 - 12.5 [facility] INR 0.9 0.8 - 1.2 [facility] Comment: [facility] Coumadin Therapy: 2.0 - 3.0 for INR for all indicators except mechanical heart valves and antiphospholipid syndromes which should use 2.5 - 3.5. Specimen Blood - Blood Performing Organization Address [facility] Phon e [address] [address] TYLER Comprehensive metabolic panel (02/04/2017 11:08 AM ENAMEL APPLIER) Sodium 137 136 - 145 [facility] mmol/L [facility] Potassium 3.7 3.5 - 5.1 [facility] mmol/L [facility] Chloride 104 95 - 110 [facility] mmol/L [facility] CO2 24 23 - 29 [facility] mmol/L [facility] Glucose 129 (H) 70 - 110 [facility] mg/dL [facility] BUN 8 6 - 20 mg/dL [facility] Creatinine 0.8 0.5 - 1.4 [facility] mg/dL [facility] Calcium 9.2 8.7 - 10.5 [facility] mg/dL [facility] Total Protein 7.7 6.0 - 8.4 [facility] g/dL [facility] Albumin 3.5 3.5 - 5.2 [facility] g/dL [facility] Total Bilirubin 0.6 0.1 - 1.0 [facility] Comment: mg/dL [facility] For infants and newborns, interpretation of results sh ould be based on gestational age, weight and in agreement with clini stefania observations. Premature recommended reference ranges: Up to 24 hours.............<8.0 mg/dL Up to 48 hours............<12.0 mg/dL 3-5 days..................<15.0 mg/dL 6-29 days.................<15.0 mg/dL Alkaline 76 55 - 135 U/L [facility] Phosphatase [facility] AST 16 10 - 40 U/L [facility] ALT 14 10 - 44 U/L [facility] Anion Gap 9 8 - 16 [facility] mmol/L [facility] eGFR if >60 >60 [facility] Israeli mL/min/1.73 [facility] m^2 eGFR if non >60 >60 [facility] Comment: mL/min/1.73 [facility] Calculation used to obtain the estimated glomerular fi ltration m^2 rate (eGFR) is the CKD-EPI equation. Specimen Blood - Blood Performing Organization Address City/State/ZIP Code Phon e Number [facility] - [address] [facility] [address] [place] [address] DENISE CBC W/ AUTO DIFFERENTIAL (02/04/2017 11:08 AM ENAMEL APPLIER) Pathologist Sig nature WBC 9.32 3.90 - 12.70 [facility] K/uL [facility] RBC 4.69 4.00 - 5.40 [facility] M/uL [facility] Hemoglobin 12.1 12.0 - 16.0 [facility] g/dL [facility] Hematocrit 38.6 37.0 - 48.5 % [facility] MCV 82 82 - 98 fL [facility] MCH 25.8 (L) 27.0 - 31.0 pg [facility] MCHC 31.3 (L) 32.0 - 36.0 [facility] g/dL [facility] RDW 14.4 11.5 - 14.5 % [facility] Platelets 305 150 - 350 K/uL [facility] MPV 10.2 9.2 - 12.9 fL [facility] Gran # (ANC) 5.3 1.8 - 7.7 K/uL [facility] Lymph # 3.1 1.0 - 4.8 K/uL [facility] Yell # 0.7 0.3 - 1.0 K/uL [facility] Eos # 0.2 0.0 - 0.5 K/uL [facility] Baso # 0.03 0.00 - 0.20 [facility] K/uL [facility] Gran % 56.6 38.0 - 73.0 % [facility] Lymph % 32.8 18.0 - 48.0 % [facility] Yell % 7.8 4.0 - 15.0 % [facility] Eosinophil % 2.1 0.0 - 8.0 % [facility] Basophil % 0.3 0.0 - 1.9 % [facility] Differential Method Automated [facility] Specimen Blood - Blood Performing Organization Address City/State/ZIP Code Phon e Number [facility] - [address] [place] [address] DENISE POCT glucose (02/04/2017 11:03 AM ENAMEL APPLIER) Pathologist Sig nature POCT Glucose 136 (H) 70 - 110 mg/dL [facility] Specimen Blood Performing Organization Address City/State/ZIP Code Phon e Number [facility] N/A EKG 12-LEAD (02/04/2017 12:00 AM ENAMEL APPLIER) Narrative Performed At This result has an attachment that is no t available. documented in this encounter Visit Diagnoses Diagnosis Sciatica of left side - Primary Pain of left calf Weakness Other malaise and fatigue documented in this encounter
--- OUTSIDE RECORDS SUMMARY | 2020-04-15 13:32 | XMS_ITS | Encounter Summary ---
:1975 Author Organization [facility] and s Subsidiaries and Affiliates Address [address] [place] [address] Care Team Providers Name Role Phone No, Doctor Primary Care Provider Unavailable Reason for Visit Reason Comments Sore Throat Burning pain to throat, onse t yesterday with nasal congestion and cough. Encounter Details Date Type Department Care Team Description 09/03/2014 Emergency [facility] Agus Garza ([facility]-Sima Joshua MD infection) (Primary [address]) [place] [phone] [phone] [place] [place] [id number] Social History Tobacco Use Types Packs/Day Years [...] 1 to 4 times per year 10/08 jehovah's witness services? Do you belong to any clubs [...] Sign Reading Time Taken Comments Blood Pressure 136/78 09/03/2014 8:39 PM CDT Pulse 87 09/03/2014 8:39 PM CDT Temperature 37.2 ??C (98.9 ??F) 09/03/2014 8:39 PM CDT Respiratory Rate 20 09/03/2014 8:39 PM CDT Oxygen Saturation 100% 09/03/2014 8:39 PM CDT Inhaled Oxygen Concentration - - Weight 117.5 kg (259 lb) 09/03/2014 8:39 PM CDT Height 167.6 cm (5' 6) 09/03/2014 8:39 PM CDT Body Mass Index 41.8 09/03/2014 8:39 PM CDT documented in this encounter Discharge Instructions Agus Pinto Jr., MD - 09/03/2014 Viral Respiratory Illness [Adult] You have an Upper Respiratory Illness (URI) caused by a virus. This illness is contagious during thefirst few days. It is spread through the air by coughing and sneezing or by direct contact (touchingthe sick person and then touching your own eyes, nose or mouth). Most viral illnesses go away within7-10 days with rest and simple home remedies. Sometimes, the illness may last for several weeks. Antibiotics will not kill a virus and are generally not prescribed for this condition. Home Care: 1) If symptoms are severe, rest at home for the first 2-3 days. When you resume activity, don't let yourself get too tired. 2) Avoid being exposed to cigarette smoke (yours or others???). 3) Tylenol (acetaminophen) or ibuprofen (Advil, Motrin) will help fever, muscle aching and headache.(Persons under 18 with fever should not take aspirin since this may cause liver damage.) 4) Your appetite may be poor, so a light diet is fine. Avoid dehydration by drinking 6-8 glasses of fluids per day (water, soft drinks, juices, tea, soup). Extra fluids will help loosen secretions in the nose and lungs. 5) Adfa-sts-kkblghr cold medicines will not shorten the length of time you???re sick, but they may be helpful for the following symptoms: cough (Robitussin DM); sore throat (Chloraseptic lozenges or spray); nasal and sinus congestion (Actifed, Sudafed, Chlortrimeton). Follow Up with your doctor or as advised if you don???t improve over the next week. Get Prompt Medical Attention if any of the following occur: -- Cough with lots of colored sputum (mucus) or blood in your sputum -- Chest pain, shortness of breath, wheezing or have trouble breathing -- Severe headache; face, neck or ear pain -- Fever over 100.4?? F (38.0?? C) for more than three days -- You can???t swallow due to throat pain ?? [id number] [employer]. [address] [place] [address], [place] [address]. All rights reserved. This information is not intended as a substitute for professional medical care. Always follow your healthcare professional's instructions. documented in this encounter Medications at Time of Discharge Medication Sig Dispensed Refills Start Date End Date aspirin (ECOTRIN) 81 MG Take 81 mg by mouth 0 01/11/2019 EC tablet once daily. aspirin 81 mg Tab Take by mouth. 0 cetirizine (ZYRTEC) 10 MG Take 1 tablet (10 mg 30 tablet 0 09/03/2014 08/04/2016 tablet total) by mouth once daily. clotrimazole-betamethason 0 10/11/2012 08/04/2016 e 1-0.05% (LOTRISONE) cream ferrous sulfate 325 mg Take 325 mg by mouth 0 08/04/2016 (65 mg iron) Tab tablet daily with breakfast. fluticasone (FLONASE) 50 2 sprays in each 15 g 0 09/0308/04/2016 mcg/actuation nasal spray nostril once daily hydrocodone-acetaminophen 0 01/26/2014 08/04/2016 5-325mg (NORCO) 5-325 mg per tablet hydrOXYzine (ATARAX) 25 0 10/11/2012 0 08/04/2016 MG tablet KLOR-CON M10 10 mEq 0 01/10/201403/28 tablet losartan (COZAAR) 100 MG Take 100 mg by mouth 0 03/28/2018 tablet once daily. losartan-hydrochlorothiaz 0 01/09/2014 08/04/2016 christina 100-12.5 mg (HYZAAR) 100-12.5 mg Tab losartan-hydrochlorothiaz 0 11/22/2012 08/04/2016 christina 100-25 mg (HYZAAR) 100-25 mg per tablet magnesium 200 mg Tab Take 400 mg by mouth 0 03/28/2018 2 (two) times daily. penicillin v potassium 0 01/26/2014 (VEETID) 500 MG tablet potassium chloride 0 12/08/20122018 (KLOR-CON) 10 MEQ TbSR potassium chloride Take 20 mEq by mouth 0 03/28/2018 (MICRO-K) 10 MEQ CpSR 2 (two) times daily. potassium chloride SA 0 01/10/2014 (KLOR-CON M10) 10 MEQ tablet sotalol (BETAPACE) 120 MG 0 12/08/2012 03/28/2018 Tab sotalol (BETAPACE) 160 MG 0 01/10/2014 08/04/2016 Tab sotalol (BETAPACE) 160 MG Take 80 mg by mouth 0 03/28/2018 Tab 2 (two) times daily. documented as of this encounter ED Notes Glenn Alegria LPN - 09/03/2014 10:20 PM CDTPt to ed w c/o sore throat times two days. Pt states pain is 5 on prs no distress noted gus Garza Jr., MD - 09/03/2014 9:19 PM CDT History Chief Complaint Patient presents with ??? Sore Throat Burning pain to throat, onset yesterday with nasal congestion and cough. No Known Allergies HPI Comments: Remedios Schofield, a 39 y.o. female, complains of sore throat and nasal congestion that began Thursday. She denies any fever chills sweats. She denies any exudates in her throat.. Pain location: Sore throat Pain Severity: 10 Pain timing: Onset Thursday Pain character: Burning Associated with or Modified by: (see above) Past Medical History Diagnosis Date ??? Hypertension ??? Atrial fibrillation No past medical history pertinent negatives on file. Past Surgical History Procedure Laterality Date ??? Abdominal surgery History reviewed. No pertinent family history. History Substance Use Topics ??? Smoking status: Never Smoker ??? Smokeless tobacco: Not on file ??? Alcohol Use: No Review of Systems Constitutional: Negative. Negative for fever. HENT: Positive for postnasal drip, rhinorrhea and sore throat. Respiratory: Positive for cough. Physical Exam Initial Vitals BP Pulse Resp Temp SpO2 09/03/14203809/03/14203809/03/[id number]/03/142038 08/28/15 2039 136/78 mmHg 87 20 98.9 ??F (37.2 ??C) 100 % Physical Exam Nursing note and vitals reviewed. Constitutional: She appears well-developed and well-nourished. No distress. HENT: Right Ear: External ear normal. Left Ear: External ear normal. Nose: Nose normal. The pharynx is diffusely injected but no exudates are noted. There is no stridor or hoarseness. The airway is widely patent. Eyes: Conjunctivae and EOM are normal. Pupils are equal, round, and reactive to light. Neck: Normal range of motion. Neck supple. Cardiovascular: Normal rate, regular rhythm and normal heart sounds. Pulmonary/Chest: Breath sounds normal. Abdominal: Soft. There is no tenderness. Musculoskeletal: Normal range of motion. Lymphadenopathy: She has no cervical adenopathy. Neurological: She is alert. She has normal strength. Skin: Skin is warm and dry. No rash noted. Psychiatric: She has a normal mood and affect. Her behavior is normal. Thought content normal. ED Course Procedures Labs Reviewed THROAT SCREEN, RAPID Medical Decision Making MDM Number of Diagnoses or Management Options URI (upper respiratory infection): Diagnosis management comments: The patient's rapid strep study was negative. She'll be treated for viral URI. She may return to work. Amount and/or Complexity of Data Reviewed Clinical lab tests: ordered and reviewed Clinical Impression: The encounter diagnosis was URI (upper respiratory infection). Agus Garza Jr., MD 09/03/14 2217 documented in this encounter Plan of Treatment Not on filedocumented as of this encounter Goals Goal Patient Goal Associated Recent Patient-Stated? 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 Reduce portion size Diet No Luzur Precious palmer DIET - Meal Planning Diet No Cutu [...] Name Priority Date/Time Associated Diagnosis Comme nts THROAT SCREEN, STAT 09/03/2014 9:24 PM Result s for this RAPID CDT procedure are i n the results section. CULTURE, STREP A, STAT 09/03/2014 9:24 PM Res ults for this THROAT CDT procedure are i n the results section. documented in this encounter Results Strep A culture, throat (09/03/2014 9:24 PM CDT) Strep A Culture No Group A [facility] Streptococcus isolated [facility] Specimen Throat Performing Organization Address City/[facility]/ZIP Code Phon e Number [facility] [address] [place] [address] SALUDA Rapid strep screen (09/03/2014 9:24 PM CDT) Rapid Strep A NegativeComment: Negative [facility] Screen See Micro for [facility] reflexed Strep culture. Specimen Throat - Throat Performing Organization Address City/[facility]/ZIP Code Phon e Number [facility] - [address] [place] [address] SIMA documented in this encounter Visit Diagnoses Diagnosis URI (upper respiratory infection) - Prim ally Acute upper respiratory infections of un specified site documented in this encounter Administered Medications Inactive Administered Medications - up to 3 most recent administrations Medication Order MAR Action Action Date Dose Rate Site ibuprofen tablet 400 mg Given 09/03/2014 9:23 PM CDT 400 mg 400 mg, Oral, ED 1 Time, On 09/03/14 at 2130, For 1 dose documented in this encounter Active and Recently Administered Medications Times are shown in CDT. Scheduled Medication Order 09/01/2014 09/02/2014 09/03/2014 ibuprofen tablet 400 mg (COMPLETED) 2122 (Given - Provider: Kim Hung RN) 400 mg, Oral, ED 1 Time, 09/03/14 at 2130, For 1 dose documented in this encounter
--- OUTSIDE RECORDS SUMMARY | 2020-04-15 13:32 | XMS_ITS | Encounter Summary ---
:1975 Author Organization [facility] and It s Subsidiaries and Affiliates Address [address] [place] [address] Care Team Providers Name Role Phone No, Doctor Primary Care Provider Unavailable Encounter Details Date Type Department Care Team Description 04/26/2014 Hospital Encounter [place] y of anemia; Center-Patricia Pederson MD Uterine fibroid; [address] [facility] [address] [place], [place] [address] [address] [place], [place] [phone] Social History Tobacco Use Types Packs/Day [...] or relatives? How often do you attend yarsanism or 1 to 4 times per year 10/08 congregational services? Do you belong to any clubs or No 10/30/2018 organizations such as yarsanism groups, unions, fraternal or athletic groups, or [...] Dispensed Refills Start Date End Date aspirin 81 mg Tab Take by mouth. 0 clotrimazole-betamethasone 0 3 08/04/2016 1-0.05% (LOTRISONE) cream ferrous sulfate 325 mg (65 Take 325 mg by 0 08/04/2016 mg iron) Tab tablet mouth daily with breakfast. hydrocodone-acetaminophen 0 01/26/2014 08/04/2016 5-325mg (NORCO) 5-325 mg per tablet hydrOXYzine (ATARAX) 25 MG 0 3 08/04/2016 tablet KLOR-CON M10 10 mEq tablet 0 4 03/28/2018 losartan-hydrochlorothiazi 0 4 08/04/2016 de 100-12.5 mg (HYZAAR) 100-12.5 mg Tab losartan-hydrochlorothiazi 0 3 08/04/2016 de 100-25 mg (HYZAAR) 100-25 mg per tablet penicillin v potassium 0 01/26/2014 (VEETID) 500 MG tablet potassium chloride 0 12/08/20122018 (KLOR-CON) 10 MEQ TbSR potassium chloride SA 0 01/10/2014 (KLOR-CON M10) 10 MEQ tablet sotalol (BETAPACE) 120 MG 0 12/08/2012 03/28/2018 Tab sotalol (BETAPACE) 160 MG 0 01/10/2014 08/04/2016 Tab documented as of this encounter Plan of Treatment Not on filedocumented as of this encounter Goals Goal Patient Goal Associated Recent Patient-Stated? Author Type Problems Progress Blood Pressure Blood 197/101 Yes Myochsner, < 130/80 Pressure (02/21/2020 System Messag e 10:15 AM COPY OPERATOR) Take at least Blood No Cutura, one BP reading Pressure Precious per week at various times of the day Maintain a low Diet No Cutura, sodium diet Precious Note: [place] [employer] (AHA) guideli francisco recommend less [...] Name Priority Date/Time Associated Diagnosis Comme nts US PELVIS COMP WITH Routine 04/26/2014 10:58 AM History of anemia Results for this TRANSVAG NON-OB COPY OPERATOR Uterine fibroid procedure are in (XPD) Hypertension the results section. documented in this encounter Results US Pelvis Comp with Transvag NON-OB (xpd (04/26/2014 10:58 AM COPY OPERATOR) Specimen Impressions Performed At [facility] Marked interval enlargement of the uterus with [...] Time: 11:31 Narrative Performed At Comparison: 04/08/2010 [facility] Findings: Transabdominal and transvaginal pelvic ultra sound [...] Results In - 04/26/2014 1 1:31 AM COPY OPERATOR Comparison: 04/08/2010 Findings: Transabdominal and transvagina l [...] ROGELIO TALK TECHNOLOGY ROGELIO TALK TECHNOLOGY n/a documented in this encounter Visit Diagnoses Diagnosis History of anemia Personal history of diseases of blood an d blood-forming organs Uterine fibroid Leiomyoma of uterus, unspecified Hypertension Unspecified essential hypertension documented in this encounter
--- OUTSIDE RECORDS SUMMARY | 2020-04-15 13:32 | XMS_ITS | Encounter Summary ---
:1975 Author Organization [facility] and It s Subsidiaries and Affiliates Address [address] [place] [address] Care Team Providers Name Role Phone Unavailable Primary Care Provider Unavailable Encounter Details Date Type Department Care Team Description 08/26/2010 Historical [facility] CARE ADMINISTRATIVE TECH Stefanie Chi MD [address] [facility], [address] [place] [address] [address] [place] [address] [place] [address] [phone] City Carrier: Lydia Gallo [phone] (Jacquelin ax) [place] Social History Tobacco Use [...] 1 to 4 times per year 10/08 jain services? Do you belong to any clubs [...] Pressure (02/21/2020 System Messag e 10:15 AM GLOBAL PRESIDENT) Take at least Blood No Cutura, one [...]
--- OUTSIDE RECORDS SUMMARY | 2020-04-15 13:32 | XMS_ITS | Encounter Summary ---
:1975 Author Organization [facility] and It s Subsidiaries and Affiliates Address [address] [place] [address] Care Team Providers Name Role Phone No, Doctor Primary Care Provider Unavailable Reason for Visit Reason Comments Advice Only Encounter Details Date Type Department Care Team Description 06/26/2014 Telephone [facility] - OB/ HYDROCHLORIC MANUFACTURING SUPERVISOR Stefanie Chi MD Advice Only [address] [facility], [address] [place] [address] [address] [place] [address] Director Of Market Intelligence: Lydia Gallo [facility] Social History Tobacco Use Types Packs/Day [...] Encounter - Katie Anderson MA - 06/26/2014 4:24 PM CDTI spoke to the pt and informed her that she needs to send the request to medical records to get her records released. elephone Encounter - Katie Anderson MA - 06/26/2014 4:24 PM CDT ----- Message from Melanie Feldman sent at 06/26/2014 4:03 PM CDT ----- Contact: pt Pt returning a call, pt [phone] documented in this encounter Plan of Treatment Not on filedocumented as of this encounter Goals Goal Patient Goal Associated Recent Patient-Stated? 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
--- OUTSIDE RECORDS SUMMARY | 2020-04-15 13:32 | XMS_ITS | Encounter Summary ---
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 Reduce portion size Diet No Cutur a, Precious DIET - Meal Planning Diet No Luzu [...]
--- OUTSIDE RECORDS SUMMARY | 2020-04-15 13:32 | XMS_ITS | Encounter Summary ---
:1975 Author Organization [facility] and It s Subsidiaries and Affiliates Address [address] [place] [address] Care Team Providers Name Role Phone No, Doctor Primary Care Provider Unavailable Encounter Details Date Type Department Care Team Description 05/22/2014 Hospital Encounter Donte Alvarado screening Breast Center - Stefanie Pederson MD mammogram [facility] Entry [address] [facility] [address] [facility] [address] [place] [address] [phone] Social History Tobacco Use Types Packs/Day Years [...] Pressure (02/21/2020 System Messag e 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 documented in this encounter Results Mammo Digital Screening Bilat with CAD (05/22/2014 12:00 AM CDT) Specimen Impressions Performed At [facility] MAMMOGRAPHY There is no mammographic evidence of mal ignancy. Mammogram in 1 year is recommended. ACR BI-RADS Category 1: Negative ARPAN FREEMAN M.D. 05/22/2014 Narrative Performed At The present examination has been compared to prior rashawn ging studies [facility] dated 04/26/2013 and 04/08/2010. BILATERAL MAMMOGRAM [...] in this encounter Visit Diagnoses Diagnosis Other screening mammogram documented in this encounter
--- OUTSIDE RECORDS SUMMARY | 2020-04-15 13:32 | XMS_ITS | Encounter Summary ---
:1975 Author Organization [facility] and s Subsidiaries and Affiliates Address [address] [place] [address] Care Team Providers Name Role Phone Jyoti Hughes MD Primary Care Provider No, Doctor Primary Care Provider Unavailable Que Nazario MD Primary Care Provider GENTRY Braswell Unavailable Unavailable MD oRmario Primary Care Provider gina Moralez II, MD, F. Unavailable Maggy Agustin MD Unavailable Napoleon Loyola MA Unavailable Unavailable CutFunctional Neuromodulation Digital Medicine [facility] [place] [phone] Jim Biggs Hypertension Digital Medicine Clinician MD Romario Hypertension Digital Medicine Responsibl e Provider 1, Employee [facility] Hypertension Digital Medicine Co ntract Unavailable Encounter Details Date Type Department Care Team Description 02/04/2017 Procedure Pass [facility] - OP Diagnost ic Ctr 1st Fl [address] [place] [address] Social History Tobacco Use Types Packs/Day Years [...] or relatives? How often do you attend protestant or 1 to 4 times per year 10/08 holiness services? Do you belong to any clubs or No 10/30/2018 organizations such as protestant groups, unions, [employer] or athletic groups, or school groups? How [...] (02/21/2020 System Messag e 10:15 AM SENIOR CREDIT ANALYST) Take at least Blood No Cutura, one BP reading Pressure Precious per week at various times of the day Maintain a low Diet No Cutura, sodium diet Precious Note: Egyptian Heart Association (AHA) guideli francisco recommend less [...]
--- OUTSIDE RECORDS SUMMARY | 2020-04-15 13:32 | XMS_ITS | Encounter Summary ---
:1975 Author Organization [facility] and It Ilusis Subsidiaries and Affiliates Address [address] [place] [address] Care Team Providers Name Role Phone No, Doctor Primary Care Provider Unavailable Reason for Visit Reason Comments Other Encounter Details Date Type Department Care Team Description 06/08/2014 Telephone Bapt WET PROCESS OPERATOR-[facility] Stefanie Ballesteros MD [address] [facility] [address] [facility] [address] [place], [place] [phone] [place], [place] [phone] Workday Director: iBng Thompson [phone] (Fa x) Stoney Social History Tobacco Use Types Packs/Day Years [...] Telephone Encounter - Katie Anderson MA - 06/08/2014 2:36 PM CDTI left a message for the pt to call the office back at [phone]. To inform her that her biopsy was benign per Dr Chi and she will be placed on the hold list for a three month follow up. elephone Encounter - Ktaie Anderson MA - 06/08/2014 2:36 PM CDT----- Message from Stefanie Chi MD sent at 06/07/2014 8:39 AM CDT ----- Please call patient to inform her of benign endometrial biopsy. Please assure that patient keeps her follow-up appointment if scheduled or that she has a follow up appointment in 3 months if therapy has been initiated. If patient has further questions, please forward information to me. documented in this encounter Plan of Treatment Not on filedocumented as of this encounter Goals Goal Patient Goal Associated Recent Patient-Stated? Author Type Problems Progress Blood Pressure Blood 197/101 Yes Myochsner, < 130/80 Pressure (02/21/2020 System Messag e 10:15 AM ADMISSIONS DIRECTOR) Take at least Blood No Cutura, one BP reading Pressure Precious per week at various times of the day Maintain a low Diet No Cutura, sodium diet Precious Note: Cuban Heart Association (AHA) guideli francisco recommend less [...]
--- OUTSIDE RECORDS SUMMARY | 2020-04-15 13:32 | XMS_ITS | Encounter Summary ---
:1975 Author Organization [facility] and It s Subsidiaries and Affiliates Address [address] [place] [address] Care Team Providers Name Role Phone No, Doctor Primary Care Provider Unavailable Encounter Details Date Type Department Care Team Description 04/26/2014 Lab Visit [facility] History of anemia; Cesar Pederson MD Uterine fibroid; [address] [place] [address] [address] [place], [place] [phone] Social History Tobacco Use Types Packs/Day Years [...] (02/21/2020 System Messag e 10:15 AM GLOBAL CONSUMER SECTOR VICE PRESIDENT) Take at least Blood No Cutura, one BP reading Pressure Precious per week at various times of the day Maintain a low Diet No Cutura, sodium diet Precious Note: Citizen Of The [place] Heart Association (AHA) guideli francisco recommend less [...] Associated Comments Diagnosis CBC W/ AUTO Routine 04/26/2014 9:18 History of anem ia Results for this DIFFERENTIAL AM GLOBAL CONSUMER SECTOR VICE PRESIDENT Uterine fibroid procedure are in Hypertension the results section. TSH Routine 04/26/2014 9:18 History of anem ia Results for this AM GLOBAL CONSUMER SECTOR VICE PRESIDENT Uterine fibroid procedure are in Hypertension the results section. T4, FREE Routine 04/26/2014 9:18 History of anem ia Results for this AM GLOBAL CONSUMER SECTOR VICE PRESIDENT Uterine fibroid procedure are in Hypertension the results section. HEMOGLOBIN A1C Routine 04/26/2014 9:18 History of anem ia Results for this AM GLOBAL CONSUMER SECTOR VICE PRESIDENT Uterine fibroid procedure are in Hypertension the results section. CHOLESTEROL, TOTAL Routine 04/26/2014 9:18 History of a nemia Results for this AM GLOBAL CONSUMER SECTOR VICE PRESIDENT Uterine fibroid procedure are in Hypertension the results section. COMPREHENSIVE Routine 04/26/2014 9:18 History of anem ia Results for this METABOLIC PANEL AM GLOBAL CONSUMER SECTOR VICE PRESIDENT Uterine fibroid procedure are in Hypertension the results section. documented in this encounter Results Hemoglobin A1c (04/26/2014 9:18 AM GLOBAL CONSUMER SECTOR VICE PRESIDENT) Hemoglobin A1C 6.3 (H) 4.5 - 6.2 % [facility] Estimated Avg 134 (H) 68 - 131 [facility] Glucose Comment: mg/dL [facility] The current Citizen Of The [place] Dietetic Association (ADA) guidel [facility] for A1C% and estimated average glucose in diabetic pat ients are <7% and <150 mg/dL respectively. Specimen Blood - Blood Performing Organization Address City/State/ZIP Code Phon e Number [facility] [address] [place] [address] [facility] [address] [place] [address] [place] Comprehensive metabolic panel (04/26/2014 9:18 AM GLOBAL CONSUMER SECTOR VICE PRESIDENT) Sodium 141 136 - 145 [facility] mmol/L [facility] Potassium 4.2 3.5 - 5.1 [facility] mmol/L [facility] Chloride 105 95 - 110 [facility] mmol/L [facility] CO2 28 23 - 29 [facility] mmol/L [facility] Glucose 123 (H) 70 - 110 [facility] mg/dL [facility] BUN 9 6 - 20 mg/dL [facility] Creatinine 0.9 0.5 - 1.4 [facility] mg/dL [facility] Calcium 9.8 8.7 - 10.5 [facility] mg/dL [facility] Total Protein 7.7 6.0 - 8.4 [facility] g/dL [facility] Albumin 3.7 3.5 - 5.2 [facility] g/dL [facility] Total Bilirubin 0.4 0.1 - 1.0 [facility] Comment: mg/dL [facility] - For infants and newborns, interpretation of resu lts should be based [facility] on gestational age, weight and in agreement with clini stefania observations. Premature recommended reference ranges: Up to 24 hours.............<8.0 mg/dL Up to 48 hours............<12.0 mg/dL 3-5 days..................<15.0 mg/dL 6-29 days.................<15.0 mg/dL Alkaline 65 55 - 135 U/L [facility] Phosphatase [facility] AST 13 10 - 40 U/L [facility] ALT 10 10 - 44 U/L [facility] Anion Gap 8 8 - 16 [facility] mmol/L [facility] eGFR if >60 >60 [facility] Citizen Of The [place] mL/min/1.73 CENTER - m^2 [facility] eGFR if non >60 >60 [facility] Comment: mL/min/1.73 [facility] - Calculation used to obtain the estimated glomeru lar filtration m^2 [facility] rate (eGFR) is the CKD-EPI equation. Since race is unk nown in our information system, the eGFR values for -Citizen Of The [place] and Aav-Bvhczto-Jxhgvgqi patients are given for each creatinine result. Specimen Blood - Blood Performing Organization Address City/[facility]/ZIP Code Phon e Number [facility] - [address] [place] [address] [place], [address] - [address] [place] [address], [address] Cholesterol, total (04/26/2014 9:18 AM GLOBAL CONSUMER SECTOR VICE PRESIDENT) Cholesterol 187 120 - 199 [facility] Comment: mg/dL [facility] The National Cholesterol Education Program (NCEP) has set the [place] following guidelines (reference ranges) for Cholestero l: Optimal.....................<200 mg/dL Borderline High.............200-239 mg/dL High........................> or = 240 mg/dL Specimen Blood - Blood Performing Organization Address City/[facility] Phon e Number [facility] - [address] [place], [place] [address]alf[place], [address] - [address] [place] [address], [address] TSH (04/26/2014 9:18 AM GLOBAL CONSUMER SECTOR VICE PRESIDENT) Pathologist Sig nature TSH 2.150 0.400 - 4.000 uIU/mL [facility] Specimen Blood - Blood Performing Organization Address City/State/ZIP Code Phon e Number [facility] - [address] [place] [address], [address] - [address] [place] [address], [address] T4, free (04/26/2014 9:18 AM GLOBAL CONSUMER SECTOR VICE PRESIDENT) Pathologist Sig nature Free T4 0.98 0.71 - 1.51 ng/dL [facility] Specimen Blood - Blood Performing Organization Address City/[facility]/ZIP Code Phon e Number [facility] - [address], [place] [address] [facility] - [address], [place] [address] [facility] CBC auto differential (04/26/2014 9:18 AM GLOBAL CONSUMER SECTOR VICE PRESIDENT) Pathologist Sig nature WBC 8.88 3.90 - 12.70 [facility] K/uL [facility] RBC 4.83 4.00 - 5.40 [facility] M/uL [facility] Hemoglobin 12.4 12.0 - 16.0 [facility] g/dL [facility] Hematocrit 40.2 37.0 - 48.5 % [facility] MCV 83 82 - 98 fL [facility] MCH 25.7 (L) 27.0 - 31.0 pg [facility] MCHC 30.8 (L) 32.0 - 36.0 % [facility] RDW 14.1 11.5 - 14.5 % [facility] Platelets 322 150 - 350 K/uL [facility] MPV 10.1 9.2 - 12.9 fL [facility] Gran # (ANC) 5.3 1.8 - 7.7 K/uL [facility] Lymph # 2.6 1.0 - 4.8 K/uL [facility] [place] # 0.7 0.3 - 1.0 K/uL [facility] Eos # 0.2 0.0 - 0.5 K/uL [facility] Baso # 0.01 0.00 - 0.20 [facility] [place] Gran % 60.2 38.0 - 73.0 % [facility] Lymph % 28.8 18.0 - 48.0 % [facility] [place] % 8.2 4.0 - 15.0 % [facility] Eosinophil % 2.7 0.0 - 8.0 % [facility] Basophil % 0.1 0.0 - 1.9 % [facility] Differential Method Automated [facility] Specimen Blood - Blood Performing Organization Address City/State/ZIP Code Phon e Number [facility] - [address] [place] [address] [facility] - [address] [place] [address] [facility] documented in this encounter Visit Diagnoses Diagnosis History of anemia Personal history of diseases of blood an d blood-forming organs Uterine fibroid Leiomyoma of uterus, unspecified Hypertension Unspecified essential hypertension documented in this encounter
--- OUTSIDE RECORDS SUMMARY | 2020-04-15 13:32 | XMS_ITS | Encounter Summary ---
:1975 Author Organization [facility] and It s Subsidiaries and Affiliates Address [address] [place] [address] Care Team Providers Name Role Phone No, Doctor Primary Care Provider Unavailable Encounter Details Date Type Department Care Team Description 04/26/2013 Hospital Encounter Donte Alvarado screening Breast Center - Stefanie Pederson MD mammogram [facility] Entry [address] [facility] [address] [place] [address] [phone] Social History Tobacco Use Types Packs/Day Years [...] or relatives? How often do you attend scientologist or 1 to 4 times per year 10/08 presybeterian services? Do you belong to any clubs or No 10/30/2018 organizations such as scientologist groups, unions, fraternal or athletic groups, or [...] iron) Tab tablet mouth daily with breakfast. hydrOXYzine (ATARAX) 25 MG 0 3 08/04/2016 tablet losartan-hydrochlorothiazi 0 3 08/04/2016 de 100-25 mg (HYZAAR) 100-25 mg per tablet potassium chloride 0 12/08/20122018 (KLOR-CON) 10 MEQ TbSR sotalol (BETAPACE) 120 MG 0 12/08/2012 03/28/2018 Tab documented as of this encounter Miscellaneous Notes Miscellaneous - Provider, Historical - 05/06/2013 9:43 AM CST documented in this encounter Plan of Treatment Not on filedocumented as of this encounter Goals Goal Patient Goal Associated Recent Patient-Stated? Author Type Problems Progress Blood Pressure Blood 197/101 Yes Myochsner, < 130/80 Pressure (02/21/2020 System Messag e 10:15 AM EXPANDED DUTY DENTAL ASSISTANT) Take at least Blood No Cutura, one BP reading Pressure Precious per week at various times of the day Maintain a low Diet No Cutura, sodium diet Precious Note: Cymro Heart Association (AHA) guideli francisco recommend less [...] Associated Diagnosis Comme nts MAMMO DIGITAL Routine 04/26/2013 1:41 PM Other screening Resu lts for this SCREENING BILAT EXPANDED DUTY DENTAL ASSISTANT mammogram procedure ar e in WITH TREVER the results section. documented in this encounter Results Mammo Digital Screening Bilat with Tomosynthesis_CAD (04/26/2013 1:41 PM EXPANDED DUTY DENTAL ASSISTANT) Specimen Impressions Performed At [facility] There is no mammographic evidence of mal ignancy. Mammogram in 1 year is recommended. ACR BI-RADS Category 1: Negative ARPAN FREEMAN M.D. 04/26/2013 Narrative Performed At The present examination has been compared to prior rashawn ging [facility] studies dated 04/08/2010. MAMMO DIGITAL SCREENING BILAT WITH TOMOS YNTHESIS The breast tissue is heterogeneously dense. ??This may lower the sensitivity of mammography. No significant abnormalities are seen. Digital tomosynthesis was performed and used in the interpretation of the images. These images ??were processed to produce digital image s analyzed for potential abnormalities. Procedure Note Interface, Rad Results In - 04/26/2013 3:39 PM EXPANDED DUTY DENTAL ASSISTANT The present examination has been compared to [...]
--- OUTSIDE RECORDS SUMMARY | 2020-04-15 13:32 | XMS_ITS | Encounter Summary ---
:1975 Author Organization [facility] and It s Subsidiaries and Affiliates Address [address] [place] [address] Care Team Providers Name Role Phone Unavailable Primary Care Provider Unavailable Encounter Details Date Type Department Care Team Description 12/22/2010 Hospital Encounter HISTORICAL DEPT - [address] [place] [address] Social History Tobacco Use Types Packs/Day Years [...] 1 to 4 times per year 10/08 roman catholic services? Do you belong to any [...] (02/21/2020 System Messag e 10:15 AM RADIO DIVISION CAPTAIN) Take at least Blood No Cutura, one BP reading Pressure Precious per week at various times of the day Maintain a low Diet No Cutura, sodium diet Precious Note: [place]uran Heart Association (AHA) guideli francisco recommend less [...] Priority Date/Time Associated Diagnosis Comme nts XR CHEST PA AND STAT 12/22/2010 12:59 AM Resul ts for this LATERAL CDT procedure are i n the results section. documented in this encounter Results X-Ray Chest PA And Lateral (12/22/2010 12:59 AM CDT) Specimen Narrative Performed At DATE OF EXAM: Dec 22 2010 [facility] KDX ?? 0012 ??- ??CHEST PA & LAT: ?? [id number] CLINICAL HISTORY: ?? CHEST PAIN ICD 9 CODE(S): ?? () CPT 4 CODE(S)/MODIFIER(S): ?? () HISTORY: Chest pain COMPARISON: None FINDINGS: ??The bilateral lungs are well expanded and unremarkable. ??No pleural effusion or pneumothorax. ??The heart and medi astinum are within normal limits for age. ??Osseous structures show mild dextrocurvature of the upper lumbar spine and DJD. IMPRESSION: No acute intrathoracic process seen. Electronically signed by: Arvind Sheikh Date: ? 12/22/10 Time: ?01:24 Medical Laboratory Technologist: RAYMOND Transcribe Date/Time: Dec 22 2010 ??1:24 A Dictated by : ARVIND SHEIKH ?? MD OPAL Report reviewed by: {respons_name} Read On: Images were reviewed, findings were veri fied and document was electronically SIGNED BY: ARVIND SHEIKH ?? MD OPAL On: Dec 22 2010 ??1:24A Procedure Note Interface, Rad Conversion - 01/17/2011 2:15 AM RADIO DIVISION CAPTAIN DATE OF EXAM: Dec 22 2010 KDX 0012 - CHEST PA & LAT: [id number] CLINICAL HISTORY: CHEST PAIN ICD 9 CODE(S): () CPT 4 CODE(S)/MODIFIER(S): () HISTORY: Chest pain COMPARISON: None FINDINGS: The bilateral lungs are well expanded and unremarkable. No pleural effusion or pneumothorax. The h eart and mediastinum are within normal limits for age. Osseous structur es show mild dextrocurvature of the upper lumbar spine and DJD. IMPRESSION: No acute intrathoracic process seen. Electronically signed by: Arvind Sheikh Date: 12/22/10 Time: 01:24 Medical Laboratory Technologist: RAYMOND Transcribe Date/Time: Dec 22 2010 1:24A Dictated by : ARVIND SHEIKH MD, MD Report reviewed by: {respons_name} Read On: Images were reviewed, findings were veri fied and document was electronically SIGNED BY: ARVIND SHEIKH MD, MD On: Dec 22 2010 1:24A Performing Organization Address City/State/ZIP Code Phon e Number [facility] documented in this encounter Visit Diagnoses Not on filedocumented in this encounter
--- OUTSIDE RECORDS SUMMARY | 2020-04-15 13:32 | XMS_ITS | Encounter Summary ---
:1975 Author Organization [facility] [place] and [employer] Subsidiaries and Affiliates Address [address] [place] [address] Care Team Providers Name Role Phone Jyoti Hughes MD Primary Care Provider Reason for Visit Reason Comments Arm Pain Shoulder Pain Encounter Details Date Type Department Care Team Description 11/27/2016 Office Visit [facility]- [facility] Dusty Cook MD [address] [place], [place] [id number] Chest pain, unspecified type (Primary Dx ); Sascha [address] Dev Hughes MD [address] [place] [address] Essential hypertension [address] [facility] [address] [place] [phone] Social History Tobacco Use Types Packs/Day Years [...] or relatives? How often do you attend gnosticism or 1 to 4 times per year 10/08 sikh services? Do you belong to any clubs or No 10/30/2018 organizations such as gnosticism groups, unions, fraternal or athletic groups, or [...] Sign Reading Time Taken Comments Blood Pressure 157/92 11/27/2016 8:32 AM CDT Pulse 76 11/27/2016 8:32 AM CDT Temperature - - Respiratory Rate - - Oxygen Saturation - - Inhaled Oxygen Concentration - - Weight 121.5 kg (267 lb 13.7 oz) 11/27/2016 8:32 AM CDT Height 167.6 cm (5' 6) 11/27/2016 8:32 AM CDT Body Mass Index 43.23 11/27/2016 8:32 AM CDT documented in this encounter Progress Notes Brii Cook MD - 11/27/2016 10:00 AM CDTI was present in clinic when the patient was seen and I discussed the case with Dr. Hughes. Pt sent to ER for ACS evalutation. I have reviewed and agree with the assessment and plan. Dev Chaparro MD - 11/27/2016 10:00 AM CDT Subjective: Patient ID: Remedios Schofield is a 41 y.o. female. Chief Complaint: Arm Pain and Shoulder Pain Pt presents with chief complaint of left arm pain. She states yesterday at around 5 PM she noted some chest pain that she describes as sharp and caused her to lean against the wall shortly after which she noted having left arm pain. She also notes that she had shortness of breath during the episode. The patient denies ever having previous episode but does note that the pain has been constant since yesterday afternoon and not relieved by anything. She does also note that the pain radiates to her back Review of Systems Constitutional: Negative for chills and fever. HENT: Negative for sore throat. Eyes: Negative for visual disturbance. Respiratory: Negative for shortness of breath. Cardiovascular: Positive for chest pain. Gastrointestinal: Negative for abdominal pain. Endocrine: Negative for polyuria. Genitourinary: Negative for dysuria. Musculoskeletal: Positive for back pain. Skin: Negative for color change. Neurological: Negative for headaches. Psychiatric/Behavioral: Negative for agitation and confusion. Objective: Vitals: 11/27/16 0832 BP: (!) 157/92 Pulse: 76 Physical Exam Constitutional: She is oriented to person, place, and time. She appears well- developed and well-nourished. HENT: Head: Normocephalic and atraumatic. Eyes: EOM are normal. Pupils are equal, round, and reactive to light. Neck: Normal range of motion. Neck supple. Cardiovascular: Normal rate, regular rhythm, normal heart sounds and intact distal pulses. Pulmonary/Chest: Effort normal and breath sounds normal. Abdominal: Soft. She exhibits no distension. Musculoskeletal: Normal range of motion. Neurological: She is alert and oriented to person, place, and time. Skin: Skin is warm and dry. Psychiatric: She has a normal mood and affect. Her behavior is normal. Judgment and thought content normal. Nursing note and vitals reviewed. Assessment: 1. Chest pain, unspecified type Plan: Chest pain, unspecified type - EKG RHYTHM STRIP (to [place]); Future - patient agreeable to going to ER for further workup of chest pain No Follow-up on file. documented in this encounter Plan of Treatment Not on filedocumented as of this encounter Goals Goal Patient Goal Associated Recent Patient-Stated? Author Type Problems Progress Blood Pressure Blood 197/101 Yes Myochsner, < 130/80 Pressure (02/21/2020 System Messag e 10:15 AM SEARCHLIGHT OPERATOR) Take at least Blood No Cutura, one BP reading Pressure Precious per week at various times of the day Maintain a low Diet No Cutura, sodium diet Precious Note: [place] [employer] (AHA) guideli francisco recommend [...] as of this encounter Visit Diagnoses Diagnosis Chest pain, unspecified type - Primary Essential hypertension documented in this encounter
--- OUTSIDE RECORDS SUMMARY | 2020-04-15 13:32 | XMS_ITS | Encounter Summary ---
:1975 Author Organization [facility] and [facility] Subsidiaries and Affiliates Address [address] [place] [address] Care Team Providers Name Role Phone No, Doctor Primary Care Provider Unavailable Reason for Visit Reason Comments Results Encounter Details Date Type Department Care Team Description 06/08/2014 Telephone Bapt TRAFFIC CONTROL OFFICER-[facility] Stefanie Ballesteros MD Results [address] [facility] [address] [place], [place] [phone] [place], [place] [id number] Fire Tender: Bing Thompson [phone] (Fa x) [place] Social History Tobacco Use [...] or relatives? How often do you attend moravian or 1 to 4 times per year 10/08 scientologist services? Do you belong to any clubs or No 10/30/2018 organizations such as moravian groups, unions, fraternal or athletic groups, or [...] Encounter - Katie Anderson MA - 06/08/2014 4:22 PM CDTI spoke to the pt and gave her the results of her biopsy per Dr Chi . I placed the pt on the hold list for three months. documented in this encounter Plan of Treatment Not on filedocumented as of this encounter Goals Goal Patient Goal Associated Recent Patient-Stated? Author Type Problems Progress Blood Pressure Blood 197/101 Yes Myochsner, < 130/80 Pressure (02/21/2020 System Messag e 10:15 AM ASSOCIATE PROGRAMMER ANALYST) Take at least Blood No Katie, one BP reading Pressure Precious per week at various times of the day Maintain a low Diet No Cutura, sodium diet Precious Note: [place] [employer] (AHA) guideli francisco recommend less [...]
--- OUTSIDE RECORDS SUMMARY | 2020-04-15 13:33 | XMS_ITS | Encounter Summary ---
:1975 Author Organization [facility] and s Subsidiaries and Affiliates Address [address] [place] [address] Care Team Providers Name Role Phone Unavailable Primary Care Provider Unavailable Encounter Details Date Type Department Care Team Description 04/01/[address] [facility] Stefanie Chi, [address] [place] [address] [address] [phone] Social History Tobacco Use Types Packs/Day Years [...] or relatives? How often do you attend catholic or 1 to 4 times per year 10/08 judaism services? 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 TRACHOMATIS/N. Routine 04/01/2010 7:22 Result s for this GONORRHOEAE BY AMP PM DEICER KIT ASSEMBLER procedure are in DNA the results section. VAGINOSIS SCREEN BY Routine 04/01/2010 7:22 Resu lts for this DNA PROBE PM DEICER KIT ASSEMBLER procedure are i n the results section. documented in this encounter Results C. trachomatis / N. gonorrhoeae, DNA probe (04/01/2010 7:22 PM DEICER KIT ASSEMBLER) Pathologist Sig nature Chlamydia, Amplified DNA Not Detected Not detected [facility] N gonorrhoeae, amplified Not Detected Not detected [facility] DNA Specimen Narrative Performed At Specimen Source: ??VAGINA [facility] Performing Organization Address City/State/ZIP Code Phon e Number [facility] N/A Vaginosis Screen by DNA Probe (04/01/2010 7:22 PM DEICER KIT ASSEMBLER) Pathologist Sig nature Trichomonas vaginalis Negative Negative [facility] Gardnerella vaginalis Positive (A) Negative [facility] Danielle sp Negative Negative [facility] Specimen Performing Organization Address City/[facility]/ZIP Code Phon e Number [facility] N/A documented in this encounter Visit Diagnoses Not on filedocumented in this encounter
--- OUTSIDE RECORDS SUMMARY | 2020-04-15 13:33 | XMS_ITS | Encounter Summary ---
:1975 Author Organization [facility] and It s Subsidiaries and Affiliates Address [address] [place] [address] Care Team Providers Name Role Phone Unavailable Primary Care Provider Unavailable Encounter Details Date Type Department Care Team Description 04/01/2010 Historical [facility] - OB/ MICROSYSTEMS ENGINEER Stefanie Chi MD [address] [facility], [address] [place] [address] [address] [place] [address] [place] [address] [phone] Slaughterer Religious Ritual: Lydia Gallo [phone] (Jacquelin ax) [place] Social History Tobacco Use [...] or relatives? How often do you attend latter-day or 1 to 4 times per year 10/08 muslim services? 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
== END 2020-04-15 13:31 | disposition home or self-care (01) ==
PROVIDERS: Emergency Provider Emergency Medicine
DX: S63.591A Other specified sprain of right wrist, initial encounter (principal); W50.0XXA Accidental hit or strike by another person, initial encounter; Y99.0 Civilian activity done for income or pay
CPT/HCPCS: 29125; 99283; 73110